=== PATIENT | male | born 1945 | race Caucasian/White ===

== ENCOUNTER → 2016-04-07 | Outpatient (CLI) | payer MEDICARE ==
[2016-04-09 15:10] LABS: Hepatits C Virus RNA, Quant 346 IU/mL (<12); LOG HCV IU/mL 2.54 (<1.08)
== END | disposition home or self-care (01) ==
LOC: LABWHC1 10:06
PROVIDERS: ATTEND Family Medicine
DX: R16.0 Hepatomegaly, not elsewhere classified (principal); R17 Unspecified jaundice; B19.20 Unspecified viral hepatitis C without hepatic coma
CPT/HCPCS: 36415; 87522

== ENCOUNTER → 2016-04-12 | Outpatient (CLI) | payer MEDICARE ==
--- NOTE | 2016-04-12 11:18 | US ---
EXAMINATION TYPE: US abdomen complete DATE OF EXAM: 04/12/2016 11:02 AM COMPARISON: No previous CLINICAL HISTORY: R17 JAUNDICE. EXAM MEASUREMENTS: Liver Length: 15.6 cm Gallbladder Wall: 0.2 cm CBD: 0.5 cm Spleen: 9.5 cm Right Kidney: 10.6 x 4.8 x 4.5 cm Left Kidney: 10.4 x 5.0 x 4.8 cm TECHNOLOGIST IMPRESSION: Pancreas: visualized portions wnl, tail obscured by overlying midline bowel gas Liver: wnl Gallbladder: appears slightly hydropic at 5.0cm in transverse measurement Evidence for sonographic Weldon's sign: no CBD: wnl Spleen: visualized portions wnl, limited by rib shadowing and overlying bowel gas Right Kidney: visualized portions wnl, inferior pole limited by overlying bowel gas Left Kidney: visualized portions wnl, limited by rib shadowing overlying bowel gas Upper IVC: wnl Abd Aorta: wnl Limited views of the pancreas are unremarkable. The liver is normal in size without biliary dilatation. The gallbladder is somewhat hydropic. There is no evidence of cholelithiasis. The gallbladder wall me asures 2 mm. Distal common hepatic duct measures 5 mm. The spleen is normal in size. Both kidneys appear normal. Visualized portions of the aorta and IVC are unremarkable. IMPRESSION: NORMAL ABDOMINAL ULTRASOUND.
== END | disposition home or self-care (01) ==
LOC: RADUSWWP 10:37
PROVIDERS: ATTEND Family Medicine
DX: R17 Unspecified jaundice (principal)
CPT/HCPCS: 76700

== ENCOUNTER → 2016-08-06 | Outpatient (CLI) | payer MEDICARE ==
[2016-08-06 12:30] LABS: Blood Urea Nitrogen 18 mg/dL (9-20); Non-African American GFR(MDRD) >60 (>60 ml/min/1.73 sqM)
--- NOTE | 2016-08-06 13:40 | CT ---
EXAMINATION TYPE: CT chest w con DATE OF EXAM: 08/06/2016 COMPARISON: NONE HISTORY: Abnormal CXR per patient CT DLP: 243.9 mGycm Automated exposure control for dose reduction was used. CONTRAST: CT scan of the chest is performed with IV Contrast, patient injected with 100 mL of Omnipaque 300. FINDINGS: LUNGS: Diffuse emphysematous changes are seen. There is a nodule within the left superior segment low er lobe axial image 26 measuring 1 cm. Is somewhat suspicious margins recommend PET scan. No pleural effusion or pneumothorax. No consolidative pneumonia. MEDIASTINUM: Atherosclerotic change aorta. There is an aneurysm of the ascending aorta measuring appr oximately 4.3 cm and of the aortic root measuring approximately 5.3 cm. Coronary artery calcification seen. The ascending aorta has a normal caliber. OTHER: No additional significant abnormality is seen. IMPRESSION: 1. 1.1 cm nodule left upper lobe. Malignancy is not excluded recommend PET scan for further evaluatio n. 2. Diffuse emphysematous changes 3. 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 A Yellow message has been communicated to Lino Murrieta MD via the [employer] system on 08/06/2016 1:33 PM, Message ID [id number].
== END | disposition home or self-care (01) ==
LOC: RADCTMAIN 11:52
PROVIDERS: ATTEND Internal Medicine Critical Care Medicine
DX: R91.1 Solitary pulmonary nodule (principal); J43.9 Emphysema, unspecified; I71.9 Aortic aneurysm of unspecified site, without rupture
CPT/HCPCS: 82565; 84520; 71260; 36415; Q9967

== ENCOUNTER → 2017-02-26 | Outpatient (CLI) | payer MEDICARE ==
[2017-02-26 11:58] LABS: Blood Urea Nitrogen 20 mg/dL (9-20)
--- NOTE | 2017-02-26 14:17 | CT ---
EXAMINATION TYPE: CT chest w con DATE OF EXAM: 02/26/2017 COMPARISON: 08/06/2016 HISTORY: Solitary pulmonary nodule CT DLP: 229.30 mGycm, Automated exposure control for dose reduction was used. CONTRAST: Performed injected with 100 ml mL of Omnipaque 300. TECHNIQUE: Axial images were obtained at 5 mm thick sections. Reconstructed images are reviewed on [employer] computer in the coronal plane. FINDINGS: Portion of the thyroid visualized is normal. Emphysematous changes are present bilaterally. There is some scarring in the posterior right upper mitzi ng field. This may be increasing from comparison. Some pneumonitis changes in the posterior lateral left mid lung field has a 1.1 cm area of groundglas s opacity. This area appears stable in size from July 2016. No enlarged mediastinal or hilar adenopathy is evident. The ascending aorta diameter at the level o f the main pulmonary artery is 4.3 cm. The main pulmonary artery diameter at the bifurcation is 2.[address] sections are obtained through the upper abdomen. Abdomen is essentially unremarkable. IMPRESSIONS: 1. Stable groundglass opacity posterior left midlung. Continued monitoring with a follow-up exam in 6 months is recommended. 2. Increasing lung markings posterior right upper lung field. 3. COPD
== END ==
LOC: RADCTMAIN 11:17
PROVIDERS: ATTEND Internal Medicine
DX: R91.1 Solitary pulmonary nodule (principal); R94.2 Abnormal results of pulmonary function studies; J44.9 Chronic obstructive pulmonary disease, unspecified
CPT/HCPCS: 82565; 84520; 71260; 36415; Q9967

== ENCOUNTER → 2018-03-03 | Outpatient (CLI) | payer MEDICARE ==
--- NOTE | 2018-03-03 11:23 | CT ---
EXAMINATION TYPE: CT chest w con DATE OF EXAM: 03/03/2018 COMPARISON: 02/26/2017 HISTORY: Pulmonary nodule and thoracic aneurysm CT DLP: 207.8 mGycm Automated exposure control for dose reduction was used. CONTRAST: CT scan of the chest is performed with IV Contrast, patient injected with 100 mL of Isovue 300. FINDINGS: LUNGS: Diffuse emphysematous changes are noted. Subsegmental areas of consolidation compatible scarri ng or atelectasis. No residual nodule within the left upper lobe image 25 is somewhat irregular ravin ns and measures 8 mm additional nodule seen anteriorly within the left upper lobe measuring 5 mm. No pleural effusion. Central and basilar bronchiectasis. Additional scattered densities more prominent a nterior right lower lobe are most likely related to chronic atelectasis or scarring. MEDIASTINUM: There is a 4.5 x 4.4 cm descending thoracic aortic aneurysm. Coronary artery calcificati on noted. Atherosclerotic change aorta is seen. No pathologic adenopathy OTHER: Hypertrophic and degenerative change of the spine. IMPRESSION: 1. There may be minimal increase in size of the left upper lobe which measuring 8 mm which is slightl y irregular margins. Recommend either a 3 month follow-up CT scan or PET/CT for further evaluation. M alignancy not excluded. 2. There is a ascending aortic aneurysm measuring 4.5 x 4.4 cm and previously measuring 4.3 cm. 3. Diffuse emphysematous changes.
== END ==
LOC: RADCTMAIN 10:08
PROVIDERS: ATTEND Internal Medicine Critical Care Medicine
DX: I71.2 Thoracic aortic aneurysm, without rupture (principal)
CPT/HCPCS: 82565; 84520; 71260; 36415; Q9967

== ENCOUNTER 2018-08-17 22:03 | Inpatient (IN) | payer MEDICARE ==
--- NOTE | 2018-08-17 23:20 | ED ---
Chest Pain HPI - General Source: patient, family Mode of arrival: ambulatory Limitations: no limitations <Martha Palacios - Last Filed: 08/17/18 23:16> <Flakita Engel - Last Filed: 08/18/18 04:14> - General Chief Complaint: Chest Pain Stated Complaint: Cardiac Issues Time Seen by Provider: 08/17/18 22:18 - History of Present Illness Initial Comments: 73-year-old male with a history of COPD and thoracic aortic aneurysm presenting with right-sided chest and arm pain that began today and is accompanied by shor tness of breath. His daughter is at bedside he states that he recently has been on steroids and antibiotics to prevent pneumonia because he only has a small percentage of his lungs functioning. They deny any fevers chills, abdominal pain, diaphoresis or other anginal equivalents. Denies any lower extremity swelling, history of DVT/PE, recent surgery, active cancer. Patient's one month prior and his daughter states he's been declining since then. States is a history of tobacco abuse and has been smoking more since her . She states he also takes tramadol multiple times a day and recently ran out, with his last dose being this morning. (Martha Palacios) - Related Data Home Medications Medication Instructions Recorded Confirmed Albuterol Inhaler [Ventolin Hfa 2 puff INHALATION RT-Q6H PRN 08/17/18 08/17/18 Inhaler] Albuterol Nebulized [Ventolin 2.5 mg INHALATION RT-Q6H PRN 08/17/18 08/17/18 Nebulized] Ergocalciferol [Vitamin D2] 50,000 unit PO Q30D 08/17/18 08/17/18 Fexofenadine/Pseudoephedrine 1 tab PO BID PRN 08/17/18 08/17/18 [Elizabeth-D 12 Hour Tablet] Fluticasone/Salmeterol [Advair 1 puff INHALATION RT-BID 08/17/18 08/17/18 500-50 Diskus] Multivitamins, Thera [Multivitamin 1 tab PO DAILY 08/17/18 08/17/18 (formulary)] Mylanta [id number] Chew 1 tab PO PC-TID 08/17/18 08/17/18 Naproxen 500 mg PO DAILY 08/17/18 08/17/18 Olopatadine HCl 1 applic BOTH EYES HS 08/17/18 08/17/18 Simvastatin [Zocor] 20 mg PO DAILY 08/17/18 08/17/18 Tiotropium [place] [Spiriva] 1 cap INHALATION RT-DAILY 08/17/18 08/17/18 traMADol HCL [Ultram] 50 mg PO DAILY PRN 08/17/18 08/17/18 Allergies Allergy/AdvReac Type Severity Reaction Status Date / Time No Known Allergies Allergy Verified 08/17/18 23:01 Review of Systems ROS Other: All systems not noted in ROS Statement are negative. <Martha Palacios - Last Filed: 08/17/18 23:16> ROS Other: All systems not noted in ROS Statement are negative. <Flakita Engel - Last Filed: 08/18/18 04:14> ROS Statement: Those systems with pertinent positive or pertinent negative responses have been documented in the HPI. Review of Systems Constitutional: Denies fever, chills Eyes: Denies change in vision, Denies pain Ears, nose, mouth, throat: Denies headaches, Denies sore throat Cardiovascular: Positive chest pain. Denies palpitations Respiratory: Positive shortness of breath, Denies cough Gastrointestinal: Denies abdominal pain. Denies nausea, vomiting, diarrhea. Genitourinary: Denies hematuria, Denies infections Musculoskeletal: Positive pain, Denies swelling Integumentary: Denies rash Neurological: Denies headache, focal weakness, focal numbness Psychiatric: Denies anxiety, Denies depression Hematologic/Lymphatic: Denies easy bleeding or bruising (Martha Palacios) EKG Findings - EKG Comments: EKG Findings:: EKG shows sinus tachycardia at a rate of [address] segment elevation, depression. No prolonged QT/QTc or VT interval. No dysrythmia noted. <Martha Palacios - Last Filed: 08/17/18 23:16> Past Medical History History of Any Multi-Drug Resistant Organisms: None Reported Additional Past Surgical History / Comment(s): back fusion. hip surgery x 2 Past Psychological History: No Psychological Hx Reported Smoking Status: Light tobacco smoker Past Alcohol Use History: None Reported Past Drug Use History: None Reported <Martha Palacios - Last Filed: 08/17/18 23:16> General Exam Limitations: no limitations <Martha Palacios - Last Filed: 08/17/18 23:16> - General Exam Comments Initial Comments: General: Awake, alert, No acute Distress HENT: Normocephalic. Atraumatic Eyes: PERRL. EOMI. No scleral icterus. No injected conjunctiva Neck: Full ROM Chest/Lungs: Distant lung sounds bilaterally Cardiac: Sinus tachycardia No murmurs or rubs. No edema. 2+ radial pulses bilaterally. No abdominal bruit Abdomen/GI: Soft, nontender, nondistended. No rebound, guarding, or rigidity. 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 ] Respiratory 19 21 Rate Blood Pressure 119/64 O2 Sat by Pulse 91 L 89 L Oximetry 08/17/18 08/17/18 08/17/18 22:50 23:00 23:10 Temperature Pulse Rate 116 H 116 H 120 H Pulse Rate [ Baling Machine Tender ] Respiratory 14 23 20 Rate Blood Pressure 137/71 137/71 128/77 O2 Sat by Pulse 90 L 90 L 88 L Oximetry 08/17/18 08/17/18 08/18/18 23:20 23:30 00:10 Temperature Pulse Rate 115 H 116 H 110 H Pulse Rate [ Baling Machine Tender ] Respiratory 22 15 Rate Blood Pressure 128/77 128/77 O2 Sat by Pulse 87 L 87 L Oximetry 08/18/18 01:25 Temperature 98.9 F Pulse Rate 110 H Pulse Rate [ Baling Machine Tender ] Respiratory 26 H Rate Blood Pressure O2 Sat by Pulse 87 L Oximetry Chest Pain MDM <Martha Palacios - Last Filed: 08/17/18 23:16> <Flakita Engel - Last Filed: 08/18/18 04:14> - MDM 73-year-old male is ending with right-sided pain and reported shortness of breath. This exam the patient is awake, alert, no acute distress. VSS. Patient has history of thoracic aortic aneurysm as daughter is concerned this could be the cause of his symptoms. No rest her distress, and has no conversational dyspnea. The initial respiratory rate of 119 was clearly entered in error. (Martha Palacios) Patient care was signed out to me by Dr. Palacios. Patient presented with right sided chest and flank pain, tachypnea and tachycardia. Workup was initiated. He does have a history of thoracic aneurysm per the patient and his daughter therefore CT was ordered. CT resulted with a right lower lobe pneumonia. No signs of aneurysm. These results were discussed with the patient and daughter. At this time the daughter and patient would feel more comfortable with the patient remaining in the hospital for antibiotics as well as COPD treatment. Patient care was discussed with his primary care physician Dr. Grissom who agrees with this plan. Admission orders were placed. (Flakita Engel) Disposition <Martha Palacios - Last Filed: 08/17/18 23:16> <Flakita Engel - Last Filed: 08/18/18 04:14> Clinical Impression: Pleurisy, Right lower lobe pneumonia, COPD exacerbation Disposition: ADMITTED IP TO THIS HOSP Condition: Stable Referrals: Lino Murrieta MD [STAFF PHYSICIAN] - 1-2 days
[2018-08-17 23:29] LABS: HGB 14.8 gm/dL (13.0-17.5); MCH 29.3 pg (25.0-35.0); MCHC 32.8 g/dL (31.0-37.0); MCV 89.5 fL (80.0-100.0); Mean Platelet Volume 7.8; Platelet Count 167 k/uL (150-450); RBC 5.03 m/uL (4.30-5.90); RDW 15.3 % (11.5-15.5); WBC 18.9 k/uL (3.8-10.6)
[2018-08-17 23:32] LABS: African American GFR (CKD) >90 (>60 ml/min/1.73 sqM); Anion Gap 9 mmol/L; Blood Urea Nitrogen 20 mg/dL (9-20); Calcium 9.1 mg/dL (8.4-10.2); Carbon Dioxide 29 mmol/L (22-30); Chloride 97 mmol/L (98-107); Glucose 108 mg/dL (74-99); Sodium 135 mmol/L (137-145)
[2018-08-18 00:04] LABS: Band Neutrophils % 3 %; Lymphocytes # (M) 1.32 k/uL (1.0-4.8); Monocytes # (M) 0.38 k/uL (0-1.0); Neutrophils % (M) 88 %; Nucleated Red Blood Cells 0 /100 WBC (0-0); Total Cells Counted 100
--- NOTE | 2018-08-18 00:21 | XR ---
EXAMINATION TYPE: XR chest 2V DATE OF EXAM: 08/17/2018 COMPARISON: 09/18/2010 HISTORY: 73-year-old male with pain TECHNIQUE: PA and lateral views FINDINGS: Heart normal size. Atherosclerotic calcifications throughout the aorta. Hyperinflation with mild inte rstitial prominence. Patchy consolidation throughout the right mid and lower lung. No pleural effusio ns. IMPRESSION: COPD with patchy consolidation right mid and lower lung. Correlate for pneumonia. Follow-up after devante atment to ensure clearance.
[2018-08-18] MEDS ORDERED: SODIUM CHLORIDE 0.9% 1,000 ML IV ONE (01:35)
[2018-08-18] MEDS ORDERED: VANCOMYCIN IV PER PHARMACY 1 EACH MISC MISCELLANE PRN (02:23)
--- NOTE | 2018-08-18 02:31 | CT ---
EXAM: CT Angiography Chest With Intravenous Contrast CLINICAL HISTORY: ITS.REASON CT Reason: Pain TECHNIQUE: Axial computed tomographic angiography images of the chest with intravenous contrast using pulmonary embolism protocol. CTDI is 23.2 mGy and DLP is 1038.80 mGy-cm. This CT exam was performed using one or more of the following dose reduction techniques: automated exposure control, adjustment of the mA and/or kV according to patient size, and/or use of iterative reconstruction technique. MIP reconstructed images were created and reviewed. COMPARISON: No relevant prior studies available. FINDINGS: Pulmonary arteries: Unremarkable. No pulmonary embolism. Aorta: No aortic aortic dissection. Aorta measures a maximum dimension of 4.6 cm anterior posterior. Lungs: Heterogeneous airspace disease at the right lower lobe posteriorly is concerning for pneumonia in the right clinical setting. At least moderate centrilobular emphysema with spiculated lesion at the superior segment of the right lower lobe measuring 1 cm. Differential would include focal scarring versus tumor. No mass. Pleural space: Unremarkable. No significant effusion. No pneumothorax. Heart: No pericardial effusion. No cardiomegaly. Multivessel coronary calcifications. No evidence of RV dysfunction. Bones/joints: No acute fracture. No dislocation. Soft tissues: Unremarkable. Lymph nodes: No adenopathy. IMPRESSION: Heterogeneous airspace disease at the right lower lobe posteriorly is concerning for pneumonia in the right clinical setting. No aortic dissection. EXAM: CT Angiography Abdomen and Pelvis With Intravenous Contrast CLINICAL HISTORY: ITS.REASON CT Reason: Pain TECHNIQUE: Axial computed tomographic angiography images of the abdomen and pelvis with intravenous contrast. CTDI is 23.2 mGy and DLP is 1038.80 mGy-cm. This CT exam was performed using one or more of the following dose reduction techniques: automated exposure control, adjustment of the mA and/or kV according to patient size, and/or use of iterative reconstruction technique. MIP reconstructed images were created and reviewed. COMPARISON: No relevant prior studies available. FINDINGS: VASCULATURE: Aorta: No aortic aneurysm or dissection. Celiac trunk and mesenteric arteries: No acute findings. No occlusion or significant stenosis. Renal arteries: No acute findings. No occlusion or significant stenosis. Iliac arteries: No acute findings. No occlusion or significant stenosis. Lung bases: Unremarkable. No mass. No consolidation. ABDOMEN: Liver: Unremarkable. No mass. Gallbladder and bile ducts: Pancreas is unremarkable. Gallbladder is without wall thickening or surrounding fluid or inflammation. Gallstones are not seen. No obstructive uropathy. No ductal dilation. Pancreas: Unremarkable. No ductal dilation. No mass. Spleen: Unremarkable. No splenomegaly. Adrenals: Unremarkable. No mass. Kidneys and ureters: See above. Stomach and bowel: Stool throughout the colon but no colitis, diverticulitis, appendicitis or bowel obstruction. PELVIS: Appendix: See above. Bladder: Unremarkable. No mass. Reproductive: Unremarkable as visualized. ABDOMEN and PELVIS: Intraperitoneal space: No free air or free fluid. Bones/joints: Bilateral total hip arthroplasties are identified. Posterior osteometallic fusion at the lower lumbar spine. No acute fracture. No dislocation. Soft tissues: Fat-containing umbilical hernia. Lymph nodes: Unremarkable. No enlarged lymph nodes. IMPRESSION: No aortic aneurysm or dissection. No other acute or inflammatory disease or bowel obstruction.
[2018-08-18] MEDS: PIPERACILLIN-TAZOBACTAM 3.375 GM in SODIUM CHLORIDE 0.9% 100 ML IVPB SCH ×4 (02:59→21:34)
[2018-08-18] MEDS ORDERED: VANCOMYCIN 1,250 MG in SODIUM CHLORIDE 0.9% 250 ML IVPB ONE (03:00)
[2018-08-18 03:18] LABS: Albumin 3.9 g/dL (3.5-5.0); Bilirubin, Delta 0.1 mg/dL (0.0-0.2); Bilirubin,Unconjugated 1.1 mg/dL (0.0-1.1); Total Bilirubin 1.2 mg/dL (0.2-1.3); Total Protein 6.3 g/dL (6.3-8.2)
[2018-08-18] MEDS ORDERED: IPRATROPIUM-ALBUTEROL 3 ML NEB INHALATION PRN (04:10)
[2018-08-18] MEDS ORDERED: traMADol 50 MG TAB PO PRN (04:11)
[2018-08-18 05:23] VITALS: BMI 21.9
[2018-08-18] MEDS: ATORVASTATIN 10 MG TAB PO SCH (07:39)
[2018-08-18] MEDS: MULTIVITAMINS, THERA 1 EACH TAB PO SCH (07:39)
[2018-08-18] MEDS: NICOTINE 14MG/24HR PATCH TRANSDERM SCH (07:39)
[2018-08-18] MEDS: predniSONE 20 MG TAB PO SCH (07:39)
[2018-08-18] MEDS: NAPROXEN 250 MG TAB PO SCH (07:43)
[2018-08-18] MEDS ORDERED: NICOTINE POLACRILEX 2 MG GUM BUCCAL PRN (08:00)
[2018-08-18] MEDS: IPRATROPIUM 0.5 MG/2.5 ML NEBU INHALATION SCH ×2 (08:43→11:25)
--- NOTE | 2018-08-18 13:29 | HP ---
HISTORY AND PHYSICAL CHIEF COMPLAINT: Shortness of breath. HISTORY OF PRESENT ILLNESS: This is another admission for this 73-year-old white male who has COPD. He started to have shortness of breath, cough, and low-grade fever. He came to the emergency room and was found to have right middle lobe pneumonitis. REVIEW OF SYSTEMS: He has had no headaches, neurologic problems, change in vision or the hearing, cough, hemoptysis, abdominal pain, nausea, vomiting, diarrhea, melena, renal failure, dysuria, etc. He is not diabetic. Past medical history, family history and personal and social histories are all otherwise unremarkable. He is not allergic to any medication. He uses Ventolin HFA, simvastatin 20 at bedtime, vitamin D 50,000 units a month, Advair Diskus 500/50 two puffs twice a day, updrafts with albuterol, trazodone for sleep, tramadol for pain, Spiriva once a day and Naprosyn b.i.d. at night. Past medical history, family, personal and social histories are otherwise unremarkable except that he does continue to smoke. His recently unexpectedly. He is being treated in [place] for amyloidosis as well. PHYSICAL EXAM: Blood pressure is 130/80 with a pulse of 96, respirations 36 and temperature of 100. In general, he appeared to be acutely ill. Skin was somewhat clammy and hot. Head, ears, eyes, nose, mouth, and throat were normal. Neck veins were not distended. Chest demonstrated a slightly increased AP diameter with poor breath sounds. There is scattered rales and rhonchi throughout. Cardiac exam demonstrates sinus tachycardia. Abdomen is flat, soft and nontender. Extremities are normal. Neurologically, he is intact. He is admitted to the hospital diagnoses. 1. Right middle lobe pneumonia. 2. Chronic obstructive pulmonary disease. 3. Hyperlipidemia. 4. Amyloidosis. PLAN: 1. Bed rest. 2. IV fluids. 3. Nasal oxygen. 4. Updrafts. 5. IV antibiotics. MMODL / IJN: [id number] /
[2018-08-18] MEDS: SYMBICORT 160-4.5 MCG INHALER INHALATION SCH (14:54)
[2018-08-18] MEDS ORDERED: LORATADINE-PSEUDOEPH 5-120 MG 1 EACH TAB.ER.12H PO PRN (14:57)
[2018-08-18] MEDS: LEVOFLOXACIN 750MG-D5W PMX 750 MG in DEXTROSE/WATER 1 150ML.BAG IVPB SCH (15:17)
[2018-08-18] MEDS: IPRATROPIUM-ALBUTEROL 3 ML NEB INHALATION SCH ×2 (16:12→19:50)
[2018-08-18] MEDS: MAG HYDROX/AL HYDROX/SIMETH 30 ML CUP PO SCH (16:50)
--- NOTE | 2018-08-18 17:22 | P.CNPUL ---
History of Present Illness Consult date: 08/18/18 Reason for consult: dyspnea, cough, chest pain, COPD Chief complaint: Cough, Congestion, right mid and right lower lung pneumonia History of present illness: This is a 73-year-old white male patient with history of advanced COPD, with baseline FEV1 of 31% of predicted, a chronic history of smoking, history of multiple comorbidities including chronic hepatitis C, essential hypertension, history of solitary lung nodule, and thoracic aortic aneurysm. Patient carries [id number] smoking history, was down to half a pack a day. On a combination of Advair and Spiriva and nebulized bronchodilators on as-needed basis, not on any home oxygen. Patient follows with Dr. Anderson in the pulmonary clinic, recently lost his , and has been smoking a bit more since then. On 08/17/2018 patient presented to the emergency department for evaluation of right-sided chest pain, and right arm pain with onset of symptoms on Saturday, accompanied by shortness of breath. He is also complaining of cough and increased chest congestion. Denied any history of fevers or chills, denied any diaphoresis, abdominal pain, nausea or vomiting. No lower extremity swelling. Chest x-ray was completed showing COPD with patchy consolidation in the right mid and lower lung. CT angiography of the chest with intravenous contrast showed no evidence of aortic aneurysm or dissection, no pulmonary embolism, heterogeneous airspace disease at the right lower lobe posteriorly concerning for pneumonia, and moderate centrilobular emphysema with spiculated lesion at the superior segment of the right lower lobe measuring 1 cm. Patient has a left lower lobe nodule/spiculated density that is being followed by Dr. Anderson in outpatient basis. Patient has a descending aortic aneurysm measuring 4.5 x 4.4 cm previously measuring 4.[address] thoracic aorta from 08/17/2018, aorta measures a maximum dimension of 4.6 cm anterior-posterior. No evidence of aortic dissection. Labs were positive for evidence of leukocytosis, white blood cell count was 18.9, hemoglobin of 14.8, serum sodium was 135, potassium 4.0, chloride was 97, normal renal profile with a BUN of 20 creatinine 0.95. Troponin was negative 1, proBNP was 85. Patient was placed on antibiotic coverage with Zosyn and vancomycin, oral prednisone, he was given a liter bolus of fluid in the emergency department. Lactic acid was within normal limits at 1.2. We're consulted for right middle and lower lobe pneumonia. Review of Systems All systems: negative Constitutional: Denies chills, Denies fever Eyes: denies blurred vision, denies pain Ears, nose, mouth and throat: Denies headache, Denies sore throat Cardiovascular: Denies chest pain, Denies shortness of breath Respiratory: Reports cough with sputum, Reports dyspnea, Reports respiratory infections, Denies cough Gastrointestinal: Denies abdominal pain, Denies diarrhea, Denies nausea, Denies vomiting Musculoskeletal: Denies myalgias Integumentary: Denies pruritus, Denies rash Neurological: Denies numbness, Denies weakness Psychiatric: Denies anxiety, Denies depression Endocrine: Denies fatigue, Denies weight change Past Medical History Past Medical History: Hyperlipidemia History of Any Multi-Drug Resistant Organisms: None Reported Additional Past Surgical History / Comment(s): back fusion. hip surgery x 2 Past Psychological History: No Psychological Hx Reported Smoking Status: Current every day smoker Past Alcohol Use History: None Reported Past Drug Use History: None Reported Medications and Allergies Home Medications Medication Instructions Recorded Confirmed Type Albuterol Inhaler [Ventolin Hfa 2 puff INHALATION RT-Q6H PRN 08/17/18 08/17/18 History Inhaler] Albuterol Nebulized [Ventolin 2.5 mg INHALATION RT-Q6H PRN 08/17/18 08/17/18 History Nebulized] Ergocalciferol [Vitamin D2] 50,000 unit PO Q30D 08/17/18 08/17/18 History Fexofenadine/Pseudoephedrine 1 tab PO BID PRN 08/17/18 08/17/18 History [Elizabeth-D 12 Hour Tablet] Fluticasone/Salmeterol [Advair 1 puff INHALATION RT-BID 08/17/18 08/17/18 History 500-50 Diskus] Multivitamins, Thera [Multivitamin 1 tab PO DAILY 08/17/18 08/17/18 History (formulary)] Mylanta [id number] Chew 1 tab PO PC-TID 08/17/18 08/17/18 History Naproxen 500 mg PO DAILY 08/17/18 08/17/18 History Olopatadine HCl 1 applic BOTH EYES HS 08/17/18 08/17/18 History Simvastatin [Zocor] 20 mg PO DAILY 08/17/18 08/17/18 History Tiotropium [place] [Spiriva] 1 cap INHALATION RT-DAILY 08/17/18 08/17/18 History traMADol HCL [Ultram] 50 mg PO DAILY PRN 08/17/18 08/17/18 History Allergies Allergy/AdvReac Type Severity Reaction Status Date / Time No Known Allergies Allergy Verified 08/17/18 23:01 Physical Exam Vitals: Vital Signs Temp Pulse Pulse Resp BP BP Pulse Ox 08/18/18 16:25 73 16 08/18/18 16:12 70 16 95 08/18/18 15:19 18 08/18/18 15:00 98.0 F 110 H 16 104/67 93 L 08/18/18 14:31 74 08/18/18 14:18 72 08/18/18 08:44 104 H 08/18/18 07:45 118 H 18 08/18/18 07:00 98.1 F 118 H 18 115/74 92 L 08/18/18 06:00 98.6 F 111 H 20 137/65 95 08/18/18 05:54 111 H 20 08/18/18 04:40 113 H 21 139/76 94 L 08/18/18 04:30 114 H 24 139/76 96 08/18/18 04:20 112 H 21 139/76 96 08/18/18 04:10 113 H 21 139/76 96 08/18/18 04:00 112 H 21 136/77 97 08/18/18 03:50 112 H 26 H 136/77 97 08/18/18 03:40 112 H 22 136/77 98 08/18/18 03:30 112 H 26 H 136/77 97 08/18/18 03:20 112 H 17 136/77 96 08/18/18 03:10 112 H 23 136/77 98 08/18/18 03:00 115 H 24 125/79 96 08/18/18 02:50 115 H 26 H 125/79 96 08/18/18 02:40 113 H 23 125/79 96 08/18/18 02:30 112 H 24 125/79 97 08/18/18 02:20 109 H 21 125/79 96 08/18/18 02:10 114 H 23 125/79 94 L 08/18/18 02:00 113 H 22 118/75 94 L 08/18/18 01:50 117 H 22 118/75 94 L 08/18/18 01:40 111 H 23 118/75 94 L 08/18/18 01:30 112 H 21 118/75 94 L 08/18/18 01:25 98.9 F 110 H 26 H 87 L 08/18/18 01:20 113 H 23 118/75 87 L 08/18/18 01:10 110 H 19 118/75 86 L 08/18/18 01:00 112 H 18 121/72 08/18/18 00:50 112 H 18 87 L 08/18/18 00:40 112 H 20 87 L 08/18/18 00:30 112 H 19 86 L 08/18/18 00:20 111 H 21 87 L 08/18/18 00:10 111 H 19 86 L 08/18/18 00:00 128/77 08/17/18 23:50 116 H 20 128/77 88 L 08/17/18 23:40 116 H 22 128/77 87 L 08/17/18 23:30 116 H 15 128/77 87 L 08/17/18 23:20 115 H 22 128/77 87 L 08/17/18 23:10 120 H 20 128/77 88 L 08/17/18 23:00 116 H 23 137/71 90 L 08/17/18 22:50 116 H 14 137/71 90 L 08/17/18 22:43 115 H 21 89 L 08/17/18 22:39 115 H 08/17/18 22:07 100.1 F H 125 H 19 119/64 91 L Intake and Output 08/18/18 08/18/18 08/18/18 06:59 14:59 22:59 Intake Total 350 Balance 350 Intake: Intake, IV Titration 350 Amount Piperacillin-Tazobactam 3 100 .375 gm In Sodium Chloride 0.9% 100 ml @ 25 mls/hr IVPB Q6H [facility] Rx#: [id number] Vancomycin 1,250 mg In 250 Sodium Chloride 0.9% 250 ml @ 125 mls/hr IVPB ONCE ONE Rx#:[id number] Other: # Voids 2 Weight 63.503 kg GENERAL EXAM: Alert, pleasant, 73-year-old white male, currently on 3 L of oxygen with a pulse ox of 95% comfortable in no apparent distress. HEAD: Normocephalic/atraumatic. EYES: Normal reaction of pupils, equal size. Conjunctiva pink, sclera white. NOSE: Clear with pink turbinates. THROAT: No erythema or exudates. NECK: No masses, no JVD, no thyroid enlargement, no adenopathy. CHEST: No chest wall deformity. Symmetrical expansion. LUNGS: Equal air entry with inspiratory crackles over right mid and lower lobe posteriorly CVS: Regular rate and rhythm, normal S1 and S2, no gallops, no murmurs, no rubs ABDOMEN: Soft, nontender. No hepatosplenomegaly, normal bowel sounds, no guarding or rigidity. EXTREMITIES: No clubbing, no edema, no cyanosis, 2+ pulses and upper and lower extremities. MUSCULOSKELETAL: Muscle strength and tone normal. SPINE: No scoliosis or deformity SKIN: No rashes CENTRAL NERVOUS SYSTEM: Alert and oriented -3. No focal deficits, tone is normal in all 4 extremities. PSYCHIATRIC: Alert and oriented -3. Appropriate affect. Intact judgment and insight. Results - Laboratory Findings CBC and BMP: 08/17/18 22:53 08/17/18 22:53 Abnormal lab findings: Abnormal Labs 08/17/18 08/17/18 08/18/18 22:53 22:53 02:15 WBC 18.9 H Neutrophils # (Manual) 17.10 H Sodium 135 L Chloride 97 L Glucose 108 H Lipase 12 L - Diagnostic Findings Chest x-ray: report reviewed, image reviewed CT scan - chest: report reviewed, image reviewed Assessment and Plan Plan: Assessment: #1. Acute hypoxemic respiratory failure related to acute right middle and right lower lobe pneumonia #2. History of advanced COPD, stage III, with baseline FEV1 of 31% of pr edicted, not on home oxygen #3. Chronic and ongoing nicotine dependence, patient carries [id number] smoking history #4. Hyperlipidemia #5. Chronic hepatitis C #6. Hypertension #7. Ascending thoracic aortic aneurysm, being followed in the outpatient basis, there was previously measuring 4.5 x 4.4 cm, thoracic CTA was completed showing dimension of 4.6 cm anterior-posterior at a maximum, with no evidence of aortic dissection #8. Chronic back pain #9. Solitary lung nodule in the left upper lobe previously measuring 8 mm in size, being followed in the outpatient basis by Dr. Anderson. Thoracic CTA chest also revealed a spiculated lesion at the superior segment of the right lower lo be measuring 1 cm #10. Psoriasis Plan: Continue Zosyn, we will add Levaquin, will discontinue vancomycin, continue nebulized bronchodilators, oral prednisone. Sputum for culture. Chest X-ray and thoracic aorta CT reviewed. Obtain follow-up labs tomorrow. Vital signs are stable, patient has right mid and right lower lobe pneumonia, and a new spiculated lesion superior segment of the right lower lobe measuring 1 cm, will be followed in the outpatient basis. continue is Symbicort, duoneb. Continue to follow I performed a history & physical examination of the patient and discussed their management with my nurse practitioner, Ashtyn Grigsby. I reviewed the nurse practitioner's note and agree with the documented findings and plan of care. Lung sounds are positive for coarse inspiratory crackles right mid and lower lobes. The findings and the impression was discussed with the patient. I attest to the documentation by the nurse practitioner. Time with Patient: Greater than 30
[2018-08-18] MEDS ORDERED: VANCOMYCIN 1,250 MG in SODIUM CHLORIDE 0.9% 250 ML IVPB SCH (18:00)
[2018-08-18] MEDS: KETOTIFEN 0.025% OPHTH DROPS 5 ML BTL BOTH EYES SCH (21:33)
[2018-08-19] MEDS: PIPERACILLIN-TAZOBACTAM 3.375 GM in SODIUM CHLORIDE 0.9% 100 ML IVPB SCH ×5 (03:15→23:15)
[2018-08-19] MEDS: SYMBICORT 160-4.5 MCG INHALER INHALATION SCH (04:40)
[2018-08-19] MEDS: traMADol 50 MG TAB PO PRN (07:32)
[2018-08-19] MEDS: MULTIVITAMINS, THERA 1 EACH TAB PO SCH (07:32)
[2018-08-19] MEDS: ATORVASTATIN 10 MG TAB PO SCH (07:32)
[2018-08-19] MEDS: NAPROXEN 250 MG TAB PO SCH (07:33)
[2018-08-19] MEDS: predniSONE 20 MG TAB PO SCH (07:33)
[2018-08-19] MEDS: NICOTINE 14MG/24HR PATCH TRANSDERM SCH (07:33)
[2018-08-19] MEDS: MAG HYDROX/AL HYDROX/SIMETH 30 ML CUP PO SCH ×3 (07:35→16:50)
[2018-08-19] MEDS: IPRATROPIUM-ALBUTEROL 3 ML NEB INHALATION SCH ×4 (08:14→20:37)
[2018-08-19 10:04] LABS: African American GFR (CKD) >90 (>60 ml/min/1.73 sqM)
--- NOTE | 2018-08-19 12:09 | PN ---
PROGRESS NOTE CHIEF COMPLAINT: Pneumonitis and exacerbation of COPD. HISTORY OF PRESENT ILLNESS: This gentleman is doing a little bit better and feels like he is breathing a bit more easily. He has coughed up some phlegm and shortness of breath has improved. He has had no chills. REVIEW OF SYSTEMS: Otherwise unremarkable. He has had no diarrhea, nausea, vomiting, dysuria, etc. PHYSICAL EXAM: Vital signs are normal. Head, ears, eyes, nose, mouth, and throat are normal. Neck veins are not distended. Chest demonstrates poor breath sounds throughout with scattered rales and rhonchi. Cardiac exam is normal and the abdomen is flat and soft and extremities normal. IMPRESSION: 1. Right middle lobe pneumonitis. 2. Exacerbation of chronic obstructive pulmonary disease. 3. Amyloidosis. PLAN: Continue with updrafts, IV fluids and antibiotics and increase activity and he can probably go home in the next day or two. MMODL / IJN: [id number] /
[2018-08-19 12:40] LABS: Basophils % (A) 0 %; Eosinophils # (A) 0.1 k/uL (0-0.7); Eosinophils % (A) 1 %; HGB 13.1 gm/dL (13.0-17.5); Lymphocytes # (A) 0.7 k/uL (1.0-4.8); Lymphocytes % (A) 4 %; MCH 29.6 pg (25.0-35.0); MCHC 32.7 g/dL (31.0-37.0); MCV 90.5 fL (80.0-100.0); Mean Platelet Volume 7.8; Monocytes # (A) 0.6 k/uL (0-1.0); Monocytes % (A) 3 %; Neutrophils # (A) 16.6 k/uL (1.3-7.7); Neutrophils % (A) 92 %; Platelet Count 136 k/uL (150-450); RBC 4.43 m/uL (4.30-5.90); RDW 14.1 % (11.5-15.5); WBC 18.2 k/uL (3.8-10.6)
[2018-08-19 12:57] LABS: ALT 32 U/L (21-72); AST 21 U/L (17-59); Alkaline Phosphatase 49 U/L (38-126); Anion Gap 8 mmol/L; Blood Urea Nitrogen 22 mg/dL (9-20); Carbon Dioxide 28 mmol/L (22-30); Chloride 99 mmol/L (98-107); Glucose 138 mg/dL (74-99); Sodium 135 mmol/L (137-145); Total Protein 5.4 g/dL (6.3-8.2)
--- NOTE | 2018-08-19 13:49 | P.PN ---
Subjective Progress Note Date: 08/19/18 Principal diagnosis: Shortness of breath, cough congestion mid right and lower lobe pneumonia. This is a 73-year-old white male patient with history of advanced COPD, with baseline FEV1 of 31% of predicted, a chronic history of smoking, history of multiple comorbidities including chronic hepatitis C, essential hypertension, history of solitary lung nodule, and thoracic aortic aneurysm. Patient carries [id number] smoking history, was down to half a pack a day. On a combination of Advair and Spiriva and nebulized bronchodilators on as-needed basis, not on any home oxygen. Patient follows with Dr. Anderson in the pulmonary clinic, recently lost his , and has been smoking a bit more since then. On 08/17/2018 patient presented to the emergency department for evaluation of right-sided chest pain, and right arm pain with onset of symptoms on Saturday, accompanied by shortness of breath. He is also complaining of cough and increased chest congestion. Denied any history of fevers or chills, denied any diaphoresis, abdominal pain, nausea or vomiting. No lower extremity swelling. Chest x-ray was completed showing COPD with patchy consolidation in the right mid and lower lung. CT angiography of the chest with intravenous contrast showed no evidence of aortic aneurysm or dissection, no pulmonary embolism, heterogeneous airspace disease at the right lower lobe posteriorly concerning for pneumonia, and moderate centrilobular emphysema with spiculated lesion at the superior segment of the right lower lobe measuring 1 cm. Patient has a left lower lobe nodule/spiculated density that is being followed by Dr. Anderson in outpatient basis. Patient has a descending aortic aneurysm measuring 4.5 x 4.4 cm previously measuring 4.[address] thoracic aorta from 08/17/2018, aorta measures a maximum dimension of 4.6 cm anterior-posterior. No evidence of aor tic dissection. Labs were positive for evidence of leukocytosis, white blood cell count was 18.9, hemoglobin of 14.8, serum sodium was 135, potassium 4.0, chloride was 97, normal renal profile with a BUN of 20 creatinine 0.95. Troponin was negative 1, proBNP was 85. Patient was placed on antibiotic coverage with Zosyn and vancomycin, oral prednisone, he was given a liter bolus of fluid in the emergency department. Lactic acid was within normal limits at 1.2. We're consulted for right middle and lower lobe pneumonia. The patient is seen today 08/19/2018 in follow-up on the regular medical floor. He is currently sitting up at the bedside. Awake and alert in no acute distress. The right-sided chest discomfort and wheezing. He continues with a productive cough. Sputum cultures pending. He is maintaining good O2 saturations in the 90s on 3 L/m per nasal cannula. He's been afebrile. Blood cultures reveal no growth thus far. White count 18.2. Hemoglobin 13.1. Creatinine 0.92. He remains on DuoNeb inhalations, Symbicort, Zosyn and Levaquin, Habitrol. Objective - Vital Signs Vital signs: Vital Signs Temp 97.7 F 08/19/18 07:00 Pulse 84 08/19/18 12:04 Resp 15 08/19/18 07:15 BP 132/77 08/19/18 07:00 Pulse Ox 96 08/19/18 07:00 Intake & Output 08/18/18 08/19/18 08/19/18 18:59 06:59 18:59 Intake Total 350 220 480 Output Total 1200 Balance 350 -980 480 Weight 63.503 kg Intake: Intake, IV Titration 350 100 Amount Piperacillin-Tazobactam 3 100 100 .375 gm In Sodium Chloride 0.9% 100 ml @ 25 mls/hr IVPB Q6H [facility] Rx#: [id number] Vancomycin 1,250 mg In 250 Sodium Chloride 0.9% 250 ml @ 125 mls/hr IVPB ONCE ONE Rx#:[id number] Oral 120 480 Output: Urine 1200 Other: # Voids 2 - Exam GENERAL EXAM: Alert, active, comfortable in no apparent distress. On 3 L nasal cannula. HEAD: Normocephalic. EYES: Normal reaction of pupils, equal size. NOSE: Clear with pink turbinates. THROAT: No erythema or exudates. NECK: No masses, no JVD. CHEST: No chest wall deformity. LUNGS: Equal air entry with crackles in the right lung base. CVS: S1 and S2 normal with no audible murmur, regular rhythm. ABDOMEN: No hepatosplenomegaly, normal bowel sounds, no guarding or rigidity. SPINE: No scoliosis or deformity SKIN: No rashes CENTRAL NERVOUS SYSTEM: No focal deficits, tone is normal in all 4 extremities. EXTREMITIES: There is no peripheral edema. No clubbing, no cyanosis. Peripheral pulses are intact. - Labs CBC & Chem 7: 08/19/18 08:54 08/19/18 08:54 Labs: Abnormal Lab Results - Last 24 Hours (Table) 08/19/18 08/19/18 Range/Units 08:54 08:54 WBC 18.2 H (3.8-10.6) k/uL Plt Count 136 L (150-450) k/uL Neutrophils # 16.6 H (1.3-7.7) k/uL Lymphocytes # 0.7 L (1.0-4.8) k/uL Sodium 135 L (137-145) mmol/L BUN 22 H (9-20) mg/dL Glucose 138 H (74-99) mg/dL Total Protein 5.4 L (6.3-8.2) g/dL Albumin 3.0 L (3.5-5.0) g/dL Microbiology - Last 24 Hours (Table) 08/18/18 02:15 Blood Culture - Preliminary Blood No Growth after 24 hours Assessment and Plan Assessment: Assessment: #1. Acute hypoxemic respiratory failure related to acute right middle and right lower lobe pneumonia #2. History of advanced COPD, stage III, with baseline FEV1 of 31% of predicted, not on home oxygen #3. Chronic and ongoing nicotine dependence, patient carries [id number] smoking history #4. Hyperlipidemia #5. Chronic hepatitis C #6. Hypertension #7. Ascending thoracic aortic aneurysm, being followed in the outpatient basis, there was previously measuring 4.5 x 4.4 cm, thoracic CTA was completed showing dimension of 4.6 cm anterior-posterior at a maximum, with no evidence of aortic dissection #8. Chronic back pain #9. Solitary lung nodule in the left upper lobe previously measuring 8 mm in size, being followed in the outpatient basis by Dr. Anderson. Thoracic CTA chest also revealed a spiculated lesion at the superior segment of the right lower lobe measuring 1 cm #10. Psoriasis Plan: The patient was seen and evaluated by Dr. Murrieta. Chest x-ray and labs reviewed. We'll continue with the current treatment plan for now. Increase his activity as tolerated. We'll continue to follow. He is again educated regarding the importance of complete smoking cessation. NicoDerm patches in place. I, the cosigning physician, performed a history & physical examination of the patient. Lungs sounds with scattered rhonchi more so on the right lung crackles in the right base. Maintaining good O2 saturations in the 90s on 3 L/m per nasal cannula. I discussed the assessment and plan of care with my nurse practitioner, Joi Bustamante. I attest to the above note as dictated by her.
[2018-08-19] MEDS: LEVOFLOXACIN 750MG-D5W PMX 750 MG in DEXTROSE/WATER 1 150ML.BAG IVPB SCH (14:42)
--- NOTE | 2018-08-19 15:25 | XR ---
EXAMINATION TYPE: XR chest 2V DATE OF EXAM: 08/19/2018 COMPARISON: 08/17/2018 HISTORY: 73-year-old male follow-up shortness of breath and pneumonia TECHNIQUE: AP and lateral views FINDINGS: Heart normal size. Mild elongation thoracic aorta. Redemonstrated patchy consolidation throughout the right mid and lower lung. Slightly less confluent at the midlung level and slightly increased at the lower lung level. Hyperinflation with trace effusions. IMPRESSION: Continued infiltrate in the right mid and lower lung. Slightly less confluent at the mid lung level a nd slightly increased at the lower lung level. Trace effusions. Background of COPD.
[2018-08-19] MEDS: KETOTIFEN 0.025% OPHTH DROPS 5 ML BTL BOTH EYES SCH (21:37)
[2018-08-20] MEDS: predniSONE 20 MG TAB PO SCH (07:22)
[2018-08-20] MEDS: MULTIVITAMINS, THERA 1 EACH TAB PO SCH (07:22)
[2018-08-20] MEDS: traMADol 50 MG TAB PO PRN (07:22)
[2018-08-20] MEDS: ATORVASTATIN 10 MG TAB PO SCH (07:22)
[2018-08-20] MEDS: NICOTINE 14MG/24HR PATCH TRANSDERM SCH (07:23)
[2018-08-20] MEDS: MAG HYDROX/AL HYDROX/SIMETH 30 ML CUP PO SCH ×3 (07:23→17:06)
[2018-08-20] MEDS: NAPROXEN 250 MG TAB PO SCH (07:24)
[2018-08-20] MEDS: PIPERACILLIN-TAZOBACTAM 3.375 GM in SODIUM CHLORIDE 0.9% 100 ML IVPB SCH ×3 (07:25→23:13)
[2018-08-20] MEDS: IPRATROPIUM-ALBUTEROL 3 ML NEB INHALATION SCH ×4 (07:52→19:45)
[2018-08-20] MEDS: SYMBICORT 160-4.5 MCG INHALER INHALATION SCH ×3 (07:56→19:45)
[2018-08-20 08:02] LABS: African American GFR (CKD) >90 (>60 ml/min/1.73 sqM)
--- NOTE | 2018-08-20 08:18 | XR ---
EXAMINATION TYPE: XR chest 2V DATE OF EXAM: 08/20/2018 COMPARISON: August 19, 2018 HISTORY: Shortness of breath TECHNIQUE: Frontal and lateral views of the chest are obtained. FINDINGS: Scattered senescent parenchymal changes noted. Hyperinflation compatible with COPD. Right perihilar and right lower lobe infiltrate persists. Correlate for pneumonia. The study is advis ed. Heart size is stable. Mediastinal structures are stable and grossly unremarkable. No evidence for hilar prominence. Degenerative changes dorsal spine. IMPRESSION: 1. Right perihilar and right lower lobe infiltrate persists. Correlate for pneumonia. The study is ad vised.
--- NOTE | 2018-08-20 14:36 | P.PN ---
Subjective Progress Note Date: 08/20/18 Principal diagnosis: Shortness of breath, cough congestion, mid right and lower lobe pneumonia This is a 73-year-old white male patient with history of advanced COPD, with baseline FEV1 of 31% of predicted, a chronic history of smoking, history of multiple comorbidities including chronic hepatitis C, essential hypertension, history of solitary lung nodule, and thoracic aortic aneurysm. Patient carries [id number] smoking history, was down to half a pack a day. On a combination of Advair and Spiriva and nebulized bronchodilators on as-needed basis, not on any home oxygen. Patient follows with Dr. Anderson in the pulmonary clinic, recently lost his , and has been smoking a bit more since then. On 08/17/2018 patient presented to the emergency department for evaluation of right-sided chest pain, and right arm pain with onset of symptoms on Saturday, accompanied by shortness of breath. He is also complaining of cough and increased chest congestion. Denied any history of fevers or chills, denied any diaphoresis, abdominal pain, nausea or vomiting. No lower extremity swelling. Chest x-ray was completed showing COPD with patchy consolidation in the right mid and lower lung. CT angiography of the chest with intravenous contrast showed no evidence of aortic aneurysm or dissection, no pulmonary embolism, heterogeneous airspace disease at the right lower lobe posteriorly concerning for pneumonia, and moderate centrilobular emphysema with spiculated lesion at the superior segment of the right lower lobe measuring 1 cm. Patient has a left lower lobe nodule/spiculated density that is being followed by Dr. Anderson in outpatient basis. Patient has a descending aortic aneurysm measuring 4.5 x 4.4 cm previously measuring 4.[address] thoracic aorta from 08/17/2018, aorta measures a maximum dimension of 4.6 cm anterior-posterior. No evidence of ao rtic dissection. Labs were positive for evidence of leukocytosis, white blood cell count was 18.9, hemoglobin of 14.8, serum sodium was 135, potassium 4.0, chloride was 97, normal renal profile with a BUN of 20 creatinine 0.95. Troponin was negative 1, proBNP was 85. Patient was placed on antibiotic coverage with Zosyn and vancomycin, oral prednisone, he was given a liter bolus of fluid in the emergency department. Lactic acid was within normal limits at 1.2. We're consulted for right middle and lower lobe pneumonia. The patient is seen today 08/19/2018 in follow-up on the regular medical floor. He is currently sitting up at the bedside. Awake and alert in no acute distress. The right-sided chest discomfort and wheezing. He continues with a productive cough. Sputum cultures pending. He is maintaining good O2 saturations in the 90s on 3 L/m per nasal cannula. He's been afebrile. Blood cultures reveal no growth thus far. White count 18.2. Hemoglobin 13.1. Creatinine 0.92. He remains on DuoNeb inhalations, Symbicort, Zosyn and Levaquin, Habitrol. On 08/20/2016 patient seen in follow-up on medical surgical floor. Is awake and alert, calm and comfortable, pulse ox is 96% on 3 L, no fever or chills, lung sounds revealed coarse breath sounds and some crackles at bilateral bases, chest x-ray revealed right perihilar and right lower lobe infiltrate persistence. We' ll continue current medical treatment, urine culture revealed Santa albicans only so far. Blood cultures was negative. Cotninue with the current antibiotic coverage in the form of Zosyn and Levaquin, occasional cough with production of sputum, no hemoptysis. No chest pain. Objective - Vital Signs Vital signs: Vital Signs Temp 97.6 F 08/20/18 07:30 Pulse 92 08/20/18 11:34 Resp 15 08/20/18 08:00 BP 149/77 08/20/18 07:30 Pulse Ox 96 08/20/18 07:56 Intake & Output 08/19/18 08/20/18 08/20/18 18:59 06:59 18:59 Intake Total 480 300 380 Output Total 400 Balance 80 300 380 Intake: Oral 480 300 380 Output: Urine 400 Other: Voiding Method Toilet Toilet Bedside Commode Bedside Commode # Voids 2 1 - Exam GENERAL EXAM: Alert, pleasant, 73-year-old white male, currently on 3 L of oxygen with a pulse ox of 95% comfortable in no apparent distress. HEAD: Normocephalic/atraumatic. EYES: Normal reaction of pupils, equal size. Conjunctiva pink, sclera white. NOSE: Clear with pink turbinates. THROAT: No erythema or exudates. NECK: No masses, no JVD, no thyroid enlargement, no adenopathy. CHEST: No chest wall deformity. Symmetrical expansion. LUNGS: Equal air entry with inspiratory crackles over right mid and lower lobe posteriorly CVS: Regular rate and rhythm, normal S1 and S2, no gallops, no murmurs, no rubs ABDOMEN: Soft, nontender. No hepatosplenomegaly, normal bowel sounds, no guarding or rigidity. EXTREMITIES: No clubbing, no edema, no cyanosis, 2+ pulses and upper and lower extremities. MUSCULOSKELETAL: Muscle strength and tone normal. SPINE: No scoliosis or deformity SKIN: No rashes CENTRAL NERVOUS SYSTEM: Alert and oriented -3. No focal deficits, tone is normal in all 4 extremities. PSYCHIATRIC: Alert and oriented -3. Appropriate affect. Intact judgment and insight. - Labs CBC & Chem 7: 08/19/18 08:54 08/20/18 07:10 Labs: Microbiology - Last 24 Hours (Table) 08/18/18 19:55 Gram Stain - Preliminary Sputum Sputum Culture - Preliminary Santa albicans 08/18/18 02:15 Blood Culture - Preliminary Blood No Growth after 48 hours Assessment and Plan Plan: Assessment: #1. Acute hypoxemic respiratory failure related to acute right middle and right lower lobe pneumonia #2. History of advanced COPD, stage III, with baseline FEV1 of 31% of predicted, not on home oxygen #3. Chronic and ongoing nicotine dependence, patient carries [id number] smoking history #4. Hyperlipidemia #5. Chronic hepatitis C #6. Hypertension #7. Ascending thoracic aortic aneurysm, being followed in the outpatient basis, there was previously measuring 4.5 x 4.4 cm, thoracic CTA was completed showing dimension of 4.6 cm anterior-posterior at a maximum, with no evidence of aortic dissection #8. Chronic back pain #9. Solitary lung nodule in the left upper lobe previously measuring 8 mm in size, being followed in the outpatient basis by Dr. Anderson. Thoracic CTA chest also revealed a spiculated lesion at the superior segment of the right lower lobe measuring 1 cm #10. Psoriasis Plan: Continue current medical treatment, will need at least another day or 2 of IV antibiotics, today's chest x-ray still shows persistence of right mid and lower lobe infiltrate. Patient is improving, no growth on the sputum and blood cultures. No fever or chills, not quite ready for discharge. I performed a history & physical examination of the patient and discussed their management with my nurse practitioner, Ashtyn Grigsby. I reviewed the nurse practitioner's note and agree with the documented findings and plan of care. Lung sounds are positive for coarse inspiratory crackles right mid and lower lobes. The findings and the impression was discussed with the patient. I attest to the documentation by the nurse practitioner. Time with Patient: Less than 30
[2018-08-20] MEDS: LEVOFLOXACIN 750 MG TAB PO SCH (14:40)
--- NOTE | 2018-08-20 14:40 | P.PN ---
Subjective 73-year-old gentleman with a history of COPD with a baseline FEV1 of 31% of predicted history of smoking, hepatitis C, hypertension, solitary lung nodule comes in for shortness of breath and cough he was diagnosed with pneumonia in the right lower lobe. Pulmonology following the patient and his and antibiotics, breathing treatments, steroids. 08/20/2018 This is the first day of me seeing this patient. He is showed short of breath on 3 L of oxygen. His cough is better though. He is not complaining of any chest pain racing heart, no abdominal pain, nausea and vomiting, or diarrhea constipation He does not complain of any tingling numbness of his extremities right now Objective - Vital Signs Vital signs: Vital Signs Temp 97.6 F 08/20/18 07:30 Pulse 92 08/20/18 11:34 Resp 15 08/20/18 08:00 BP 149/77 08/20/18 07:30 Pulse Ox 96 08/20/18 07:56 Intake & Output 08/19/18 08/20/18 08/20/18 18:59 06:59 18:59 Intake Total 480 300 380 Output Total 400 Balance 80 300 380 Intake: Oral 480 300 380 Output: Urine 400 Other: Voiding Method Toilet Toilet Bedside Commode Bedside Commode # Voids 2 1 - Exam GENERAL : Alert, active, comfortable in no apparent distress. On 3 L nasal cannula. HEENT: Head atraumatic normocephalic, PERRLA no pallor no icterus. NOSE: Clear with pink turbinates. THROAT: No erythema or exudates. NECK: No JVD, no neck enlargement, or thyroid enlargement CHEST: No chest wall deformity. LUNGS: Patient is having wheezing and crackles in the lungs CVS: S1 and S2 normal with no audible murmur, regular rhythm. ABDOMEN: Soft nontender patient is having umbilical hernia which is reducible at this time. SKIN: No rashes Neuro: No focal deficits, tone is normal in all 4 extremities. EXTREMITIES: There is no peripheral edema. No clubbing, no cyanosis. Peripheral pulses are intact. - Labs CBC & Chem 7: 08/19/18 08:54 08/20/18 07:10 Labs: Microbiology - Last 24 Hours (Table) 08/18/18 19:55 Gram Stain - Preliminary Sputum Sputum Culture - Preliminary Santa albicans 08/18/18 02:15 Blood Culture - Preliminary Blood No Growth after 48 hours Assessment and Plan Assessment: - Acute hypoxemic respiratory failure - Right middle and right lower lobe pneumonia causing above - COPD exacerbation - Hyperlipidemia - Hypertension - Reducible umbilical hernia - Ascending thoracic cardiac aneurysm followed by an outpatient basis - Chronic back pain - Psoriasis - Solitary lung nodule in thetary lung nodule in the left upper lobe Plan - Continue antibiotics, steroids and breathing treatments as per I's recommen dations - Continue rest of the medical care - We'll continue to follow the patient up
[2018-08-20] MEDS: KETOTIFEN 0.025% OPHTH DROPS 5 ML BTL BOTH EYES SCH (20:28)
[2018-08-21 07:57] LABS: African American GFR (CKD) >90 (>60 ml/min/1.73 sqM)
[2018-08-21] MEDS: SYMBICORT 160-4.5 MCG INHALER INHALATION SCH ×2 (08:17→20:20)
[2018-08-21] MEDS: IPRATROPIUM-ALBUTEROL 3 ML NEB INHALATION SCH ×4 (08:17→20:20)
[2018-08-21] MEDS: PIPERACILLIN-TAZOBACTAM 3.375 GM in SODIUM CHLORIDE 0.9% 100 ML IVPB SCH ×3 (08:25→23:08)
[2018-08-21] MEDS: NICOTINE 14MG/24HR PATCH TRANSDERM SCH (08:28)
[2018-08-21] MEDS: predniSONE 20 MG TAB PO SCH (08:29)
[2018-08-21] MEDS: MAG HYDROX/AL HYDROX/SIMETH 30 ML CUP PO SCH ×3 (08:29→18:34)
[2018-08-21] MEDS: NAPROXEN 250 MG TAB PO SCH (08:30)
[2018-08-21] MEDS: ATORVASTATIN 10 MG TAB PO SCH (08:30)
[2018-08-21] MEDS: MULTIVITAMINS, THERA 1 EACH TAB PO SCH (08:30)
[2018-08-21] MEDS: traMADol 50 MG TAB PO PRN (08:32)
--- NOTE | 2018-08-21 13:13 | PN ---
PROGRESS NOTE DATE OF SERVICE: 08/21/2018 This is a very pleasant 73-year-old gentleman with a history of advanced chronic obstructive pulmonary disease. He presented here with complaints of increasing shortness of breath, cough and congestion. He was found to have a right lower lobe pneumonia. He is currently maintaining good O2 saturations in the 90s on 3 L/minute per nasal cannula. He is afebrile. Hemodynamically stable. Sputum culture positive for Santa. Blood cultures are negative. Creatinine 0.81. He remains on DuoNeb inhalations, Symbicort, Zosyn, and Levaquin, prednisone taper. A NicoDerm patch is in place. PHYSICAL EXAM: He is alert and oriented, in no acute distress. Vital signs revealed blood pressure 142/76, heart rate 77, respirations 16, temperature 97.8. He is 95% O2 saturation on 3 L/minute per nasal cannula. HEAD: Normocephalic sclerae anicteric. NECK: Supple. Trachea midline. LUNGS have bilateral end-expiratory wheeze, crackles in the right posterior bases diminished. HEART is regular S1 and S2. ABDOMEN: Soft, nontender. Bowel sounds are present. EXTREMITIES: There is no peripheral edema. No clubbing. No cyanosis. INVESTIGATIONS: Lab results reveal a creatinine of 0.81. Urine Legionella antigen was negative. IMPRESSION: 1. Acute hypoxemic respiratory failure secondary to an acute right middle lobe and right lower lobe pneumonia. 2. Acute exacerbation of chronic obstructive pulmonary disease secondary to above. FEV1 value 31% of predicted. Not on home oxygen. 3. Chronic and ongoing tobacco dependence of greater than 50 years. 4. Hyperlipidemia. 5. Chronic hepatitis C. 6. Hypertension. 7. Ascending thoracic aortic aneurysm being followed on an outpatient basis previously measuring 4.5 x 4.4, no evidence of dissection. 8. Chronic back pain. 9. Solitary lung nodule in the left upper lobe previously measuring 8 mm being followed in the outpatient basis. 10.Psoriasis. PLAN: The patient was seen and evaluated by Dr. Murrieta. He is stable from a pulmonary standpoint. We will continue with the current treatment plan. We will repeat a chest x-ray in the a.m. We will increase his activity as tolerated. We will continue to follow and make further recommendations based on his clinical status. [employer] statement: I, the cosigning physician, performed a history and physical examination on the patient. Lung sounds with bilateral end-expiratory wheezes, crackles in the right posterior bases diminished maintaining good O2 saturation in the 90s on 3 L/minute per nasal cannula. I attest to the above-noted as dictated by my nurse practitioner, Joi Bustamante. MMLUISL / CLARKE: [id number] /
[2018-08-21] MEDS: LEVOFLOXACIN 750 MG TAB PO SCH (15:11)
--- NOTE | 2018-08-21 18:41 | P.PN ---
Subjective 73-year-old gentleman with a history of COPD with a baseline FEV1 of 31% of predicted history of smoking, hepatitis C, hypertension, solitary lung nodule comes in for shortness of breath and cough he was diagnosed with pneumonia in the right lower lobe. Pulmonology following the patient and his and antibiotics, breathing treatments, steroids. 08/20/2018 This is the first day of me seeing this patient. He is showed short of breath on 3 L of oxygen. His cough is better though. He is not complaining of any chest pain racing heart, no abdominal pain, nausea and vomiting, or diarrhea constipation He does not complain of any tingling numbness of his extremities right now 08/21/2018 Pt says his sob is better Coughing is better no chest pain, no racing heart Objective - Vital Signs Vital signs: Vital Signs Temp 98.2 F 08/21/18 14:18 Pulse 83 08/21/18 16:09 Resp 12 08/21/18 14:18 BP 105/66 08/21/18 14:18 Pulse Ox 93 L 08/21/18 15:59 Intake & Output 08/20/18 08/21/18 08/21/18 18:59 06:59 18:59 Intake Total 530 Balance 530 Intake: Oral 530 Other: Voiding Method Toilet Toilet Bedside Commode Bedside Commode # Voids 1 1 2 - Exam GENERAL : Alert, active, comfortable in no apparent distress. On 3 L nasal cannula. HEENT: Head atraumatic normocephalic, PERRLA no pallor no icterus. NOSE: Clear with pink turbinates. THROAT: No erythema or exudates. NECK: No JVD, no neck enlargement, or thyroid enlargement CHEST: No chest wall deformity. LUNGS: Patient is having wheezing and crackles in the lungs CVS: S1 and S2 normal with no audible murmur, regular rhythm. ABDOMEN: Soft nontender patient is having umbilical hernia which is reducible at this time. SKIN: No rashes Neuro: No focal deficits, tone is normal in all 4 extremities. EXTREMITIES: There is no peripheral edema. No clubbing, no cyanosis. Peripheral pulses are intact. - Labs CBC & Chem 7: 08/19/18 08:54 08/21/18 06:51 Labs: Microbiology - Last 24 Hours (Table) 08/18/18 19:55 Gram Stain - Final Sputum Sputum Culture - Final Santa albicans 08/18/18 02:15 Blood Culture - Preliminary Blood No Growth after 72 hours Assessment and Plan Assessment: - Acute hypoxemic respiratory failure - Right middle and right lower lobe pneumonia causing above - COPD exacerbation - Hyperlipidemia - Hypertension - Reducible umbilical hernia - Ascending thoracic cardiac aneurysm followed by an outpatient basis - Chronic back pain - Psoriasis - Solitary lung nodule in thetary lung nodule in the left upper lobe Plan 08/20/2018 - Continue antibiotics, steroids and breathing treatments as per I's recommendations - Continue rest of the medical care - We'll continue to follow the patient up 08/21/2018 - Will continue anx, steroids, breathing treatments - He is improving - Anticipate dc in the next 24 to 48 hrs.
[2018-08-21] MEDS: KETOTIFEN 0.025% OPHTH DROPS 5 ML BTL BOTH EYES SCH (20:25)
[2018-08-22 06:12] LABS: Mycoplasma IgM Antibody 0.49 INDEX (<=0.90)
[2018-08-22] MEDS: IPRATROPIUM-ALBUTEROL 3 ML NEB INHALATION SCH ×4 (07:58→19:22)
[2018-08-22] MEDS: SYMBICORT 160-4.5 MCG INHALER INHALATION SCH ×2 (07:58→19:22)
[2018-08-22] MEDS: MAG HYDROX/AL HYDROX/SIMETH 30 ML CUP PO SCH ×3 (08:17→16:26)
[2018-08-22] MEDS: PIPERACILLIN-TAZOBACTAM 3.375 GM in SODIUM CHLORIDE 0.9% 100 ML IVPB SCH ×2 (08:17→16:26)
[2018-08-22] MEDS: NAPROXEN 250 MG TAB PO SCH (08:18)
[2018-08-22] MEDS: MULTIVITAMINS, THERA 1 EACH TAB PO SCH (08:18)
[2018-08-22] MEDS: predniSONE 20 MG TAB PO SCH (08:18)
[2018-08-22] MEDS: NICOTINE 14MG/24HR PATCH TRANSDERM SCH (08:18)
[2018-08-22] MEDS: ATORVASTATIN 10 MG TAB PO SCH (08:19)
[2018-08-22 09:48] LABS: African American GFR (CKD) >90 (>60 ml/min/1.73 sqM)
--- NOTE | 2018-08-22 12:49 | XR ---
EXAMINATION TYPE: XR chest 2V DATE OF EXAM: 08/22/2018 COMPARISON: 08/20/2018 HISTORY: Shortness of breath TECHNIQUE: Frontal and lateral views of the chest are obtained. FINDINGS: Scattered senescent parenchymal changes noted. Hyperinflation compatible with COPD. Perihilar infiltrate persists. Underlying mass is difficult to exclude. Improving aeration however ri ght medial lung base. Small right-sided pleural effusion noted. Heart size is stable. Mediastinal structures are stable and grossly unremarkable. No evidence for hilar prominence. Degenerative changes dorsal spine. IMPRESSION: 1. Perihilar infiltrate persists. Underlying mass is difficult to exclude. Improving aeration however right medial lung base. Small right-sided pleural effusion noted.
--- NOTE | 2018-08-22 15:14 | P.PN ---
Subjective Progress Note Date: 08/22/18 Principal diagnosis: Shortness of breath, cough congestion, mid right and lower lobe pneumonia This is a 73-year-old white male patient with history of advanced COPD, with baseline FEV1 of 31% of predicted, a chronic history of smoking, history of multiple comorbidities including chronic hepatitis C, essential hypertension, history of solitary lung nodule, and thoracic aortic aneurysm. Patient carries [id number] smoking history, was down to half a pack a day. On a combination of Advair and Spiriva and nebulized bronchodilators on as-needed basis, not on any home oxygen. Patient follows with Dr. Anderson in the pulmonary clinic, recently lost his , and has been smoking a bit more since then. On 08/17/2018 patient presented to the emergency department for evaluation of right-sided chest pain, and right arm pain with onset of symptoms on Saturday, accompanied by shortness of breath. He is also complaining of cough and increased chest congestion. Denied any history of fevers or chills, denied any diaphoresis, abdominal pain, nausea or vomiting. No lower extremity swelling. Chest x-ray was completed showing COPD with patchy consolidation in the right mid and lower lung. CT angiography of the chest with intravenous contrast showed no evidence of aortic aneurysm or dissection, no pulmonary embolism, heterogeneous airspace disease at the right lower lobe posteriorly concerning for pneumonia, and moderate centrilobular emphysema with spiculated lesion at the superior segment of the right lower lobe measuring 1 cm. Patient has a left lower lobe nodule/spiculated density that is being followed by Dr. Anderson in outpatient basis. Patient has a descending aortic aneurysm measuring 4.5 x 4.4 cm previously measuring 4.[address] thoracic aorta from 08/17/2018, aorta measures a maximum dimension of 4.6 cm anterior-posterior. No evidence of ao rtic dissection. Labs were positive for evidence of leukocytosis, white blood cell count was 18.9, hemoglobin of 14.8, serum sodium was 135, potassium 4.0, chloride was 97, normal renal profile with a BUN of 20 creatinine 0.95. Troponin was negative 1, proBNP was 85. Patient was placed on antibiotic coverage with Zosyn and vancomycin, oral prednisone, he was given a liter bolus of fluid in the emergency department. Lactic acid was within normal limits at 1.2. We're consulted for right middle and lower lobe pneumonia. The patient is seen today 08/19/2018 in follow-up on the regular medical floor. He is currently sitting up at the bedside. Awake and alert in no acute distress. The right-sided chest discomfort and wheezing. He continues with a productive cough. Sputum cultures pending. He is maintaining good O2 saturations in the 90s on 3 L/m per nasal cannula. He's been afebrile. Blood cultures reveal no growth thus far. White count 18.2. Hemoglobin 13.1. Creatinine 0.92. He remains on DuoNeb inhalations, Symbicort, Zosyn and Levaquin, Habitrol. On 08/20/2016 patient seen in follow-up on medical surgical floor. Is awake and alert, calm and comfortable, pulse ox is 96% on 3 L, no fever or chills, lung sounds revealed coarse breath sounds and some crackles at bilateral bases, chest x-ray revealed right perihilar and right lower lobe infiltrate persistence. We' ll continue current medical treatment, urine culture revealed Santa albicans only so far. Blood cultures was negative. Cotninue with the current antibiotic coverage in the form of Zosyn and Levaquin, occasional cough with production of sputum, no hemoptysis. No chest pain. On 08/22/2018 patient seen in follow-up on medical surgical floor. Clinical patient continues to improve, no worsening shortness of breath, he is on 4 L of oxygen with a pulse ox of 92%, afebrile, hemodynamically stable, lung sounds are positive for a few scattered rhonchi, no significant wheezing, no fever or chills, blood and sputum cultures were negative with exception of Santa albicans in the sputum culture that could be oral luis contamination. Patient continues on Zosyn and Levaquin, no worsening cough or congestion, or hemoptysis, no chest tenderness. Today's follow-up chest x-ray has been reviewed, showing improvement in the appearance of right medial lung base, and persistence of perihilar infiltrate. Objective - Vital Signs Vital signs: Vital Signs Temp 97.5 F L 08/22/18 07:02 Pulse 100 08/22/18 11:36 Resp 15 08/22/18 07:02 BP 153/74 08/22/18 07:02 Pulse Ox 92 L 08/22/18 07:02 Intake & Output 08/21/18 08/22/18 08/22/18 18:59 06:59 18:59 Intake Total 640 280 Balance 640 280 Weight 63.503 kg Intake: Intake, IV Titration 100 Amount Piperacillin-Tazobactam 3 100 .375 gm In Sodium Chloride 0.9% 100 ml @ 25 mls/hr IVPB Q8HR JOHINE Rx# :[id number] Oral 540 280 Other: Voiding Method Toilet # Voids 2 2 - Exam GENERAL EXAM: Alert, pleasant, 73-year-old white male, currently on 4 L of oxygen with a pulse ox of 93% comfortable in no apparent distress. HEAD: Normocephalic/atraumatic. EYES: Normal reaction of pupils, equal size. Conjunctiva pink, sclera white. NOSE: Clear with pink turbinates. THROAT: No erythema or exudates. NECK: No masses, no JVD, no thyroid enlargement, no adenopathy. CHEST: No chest wall deformity. Symmetrical expansion. LUNGS: Equal air entry with some scattered rhonchi bilaterally CVS: Regular rate and rhythm, normal S1 and S2, no gallops, no murmurs, no rubs ABDOMEN: Soft, nontender. No hepatosplenomegaly, normal bowel sounds, no guarding or rigidity. EXTREMITIES: No clubbing, no edema, no cyanosis, 2+ pulses and upper and lower extremities. MUSCULOSKELETAL: Muscle strength and tone normal. SPINE: No scoliosis or deformity SKIN: No rashes CENTRAL NERVOUS SYSTEM: Alert and oriented -3. No focal deficits, tone is normal in all 4 extremities. PSYCHIATRIC: Alert and oriented -3. Appropriate affect. Intact judgment and insight. - Labs CBC & Chem 7: 08/19/18 08:54 08/22/18 08:50 Labs: Abnormal Lab Results - Last 24 Hours (Table) 08/19/18 Range/Units 08:54 Mycoplasma pneumon IgG 0.95 H (<=0.90) INDEX Microbiology - Last 24 Hours (Table) 08/18/18 02:15 Blood Culture - Preliminary Blood No Growth after 96 hours Assessment and Plan Plan: Assessment: #1. Acute hypoxemic respiratory failure related to acute right middle and right lower lobe pneumonia #2. History of advanced COPD, stage III, with baseline FEV1 of 31% of predicted, not on home oxygen #3. Chronic and ongoing nicotine dependence, patient carries [id number] smoking history #4. Hyperlipidemia #5. Chronic hepatitis C #6. Hypertension #7. Ascending thoracic aortic aneurysm, being followed in the outpatient basis, there was previously measuring 4.5 x 4.4 cm, thoracic CTA was completed showing dimension of 4.6 cm anterior-posterior at a maximum, with no evidence of aortic dissection #8. Chronic back pain #9. Solitary lung nodule in the left upper lobe previously measuring 8 mm in size, being followed in the outpatient basis by Dr. Anderson. Thoracic CTA chest also revealed a spiculated lesion at the superior segment of the right lower lobe measuring 1 cm #10. Psoriasis Plan: Patient is clinically improving, today's follow-up chest x-ray showed improvement in aeration of the right mid lung base, and persistence of perihilar infiltrate on the right, no fever or chills, sputum blood cultures remain negative, patient has been treated with a combination of Zosyn and Levaquin, from pulmonary perspective patient is stable for discharge home today with 7 more days of Levaquin 750 mg. Prednisone taper, patient can resume his maintenance inhalers and nebulized treatments, he'll need follow-up in the office with Dr. Murrieta next week. I performed a history & physical examination of the patient and discussed their management with my nurse practitioner, Ashtyn Grigsby. I reviewed the nurse practitioner's note and agree with the documented findings and plan of care. Lung sounds are positive for coarse inspiratory crackles right mid and lower lobes. The findings and the impression was discussed with the patient. I attest to the documentation by the nurse practitioner. Time with Patient: Less than 30
[2018-08-22] MEDS: LEVOFLOXACIN 750 MG TAB PO SCH (16:26)
[2018-08-22] MEDS: traMADol 50 MG TAB PO PRN (20:16)
[2018-08-22] MEDS: KETOTIFEN 0.025% OPHTH DROPS 5 ML BTL BOTH EYES SCH (20:16)
[2018-08-23] MEDS: PIPERACILLIN-TAZOBACTAM 3.375 GM in SODIUM CHLORIDE 0.9% 100 ML IVPB SCH ×2 (00:06→08:02)
[2018-08-23 03:11] VITALS: RESP 16
[2018-08-23 07:54] VITALS: BP 135/73; TEMP 98.6
[2018-08-23] MEDS: traMADol 50 MG TAB PO PRN (08:03)
[2018-08-23] MEDS: predniSONE 20 MG TAB PO SCH (08:03)
[2018-08-23] MEDS: MULTIVITAMINS, THERA 1 EACH TAB PO SCH (08:03)
[2018-08-23] MEDS: NAPROXEN 250 MG TAB PO SCH (08:04)
[2018-08-23] MEDS: ATORVASTATIN 10 MG TAB PO SCH (08:06)
[2018-08-23] MEDS: NICOTINE 14MG/24HR PATCH TRANSDERM SCH (08:06)
[2018-08-23] MEDS: MAG HYDROX/AL HYDROX/SIMETH 30 ML CUP PO SCH (08:06)
[2018-08-23] MEDS: SYMBICORT 160-4.5 MCG INHALER INHALATION SCH (08:17)
[2018-08-23] MEDS: IPRATROPIUM-ALBUTEROL 3 ML NEB INHALATION SCH (08:17)
[2018-08-23 08:26] VITALS: PULSE 94
--- NOTE | 2018-09-05 22:44 | P.DS ---
Providers Date of admission: 08/18/18 04:10 Expected date of discharge: 08/22/18 Attending physician: Gerber Grissom Consults: 08/18/18 14:25 Consult Physician Routine Consulting Provider: Lino Murrieta Consult Reason/Comments: copd/ pneumonia Do you want consulting provider notified?: Yes Primary care physician: Gerber Grissom Hospital Course: Discharge diagnosis - Acute hypoxemic respiratory failure - Right middle and right lower lobe pneumonia causing above - COPD exacerbation - Hyperlipidemia - Hypertension - Reducible umbilical hernia - Ascending thoracic cardiac aneurysm followed by an outpatient basis - Chronic back pain - Psoriasis - Solitary lung nodule in thetary lung nodule in the left upper lobe Hospital course: 73-year-old gentleman with a history of COPD with a baseline FEV1 of 31% of predicted history of smoking, hepatitis C, hypertension, solitary lung nodule comes in for shortness of breath and cough he was diagnosed with pneumonia in the right lower lobe. Pulmonology following the patient and he was started on antibiotics,breathing treatments, steroids. The patient was not on home oxygen but here was using oxygen. He was continued on levaquin and zosyn. His breathing started to improve very slowly. On 08/22/2018 The patient was breathing better, his cough was better as well. no chest pain, no racing heart. no abd pain, no nausea, no vomiting GENERAL : Alert, active, comfortable in no apparent distress. On 3 L nasal cannula. HEENT: Head atraumatic normocephalic, PERRLA no pallor no icterus. NOSE: Clear with pink turbinates. THROAT: No erythema or exudates. NECK: No JVD, no neck enlargement, or thyroid enlargement CHEST: No chest wall deformity. LUNGS: Patient is having wheezing and crackles in the lungs CVS: S1 and S2 normal with no audible murmur, regular rhythm. ABDOMEN: Soft nontender patient is having umbilical hernia which is reducible at this time. SKIN: No rashes Neuro: No focal deficits, tone is normal in all 4 extremities. EXTREMITIES: There is no peripheral edema. No clubbing, no cyanosis. Peripheral pulses are intact. The paitent will be disharged . Patient was cleared by pulmonary he will be on abx and steroid taper. Will need home oxygen Will need to f/u with pulmonary as op Patient Condition at Discharge: Stable Plan - Discharge Summary Discharge Rx Participant: No New Discharge Prescriptions: New Nicotine 14Mg/24Hr Patch [Habitrol] 1 patch TRANSDERM DAILY 30 Days #30 patch Levofloxacin [Levaquin] 750 mg PO DAILY 7 Days #7 tab predniSONE 0 mg PO DIRECTED 12 Days #24 tab No Action traMADol HCL [Ultram] 50 mg PO DAILY PRN PRN Reason: Pain Albuterol Inhaler [Ventolin Hfa Inhaler] 2 puff INHALATION RT-Q6H PRN PRN Reason: Shortness Of Breath Tiotropium [place] [Spiriva] 1 cap INHALATION RT-DAILY Simvastatin [Zocor] 20 mg PO DAILY Olopatadine HCl 1 applic BOTH EYES HS Naproxen 500 mg PO DAILY Mylanta [id number] Chew 1 tab PO PC-TID Multivitamins, Thera [Multivitamin (formulary)] 1 tab PO DAILY Ergocalciferol [Vitamin D2 (DRISDOL)] 50,000 unit PO Q30D Fluticasone/Salmeterol [Advair 500-50 Diskus] 1 puff INHALATION RT-BID Albuterol Nebulized [Ventolin Nebulized] 2.5 mg INHALATION RT-Q6H PRN PRN Reason: Shortness Of Breath Discharge Medication List Albuterol Inhaler [Ventolin Hfa Inhaler] 2 puff INHALATION RT-Q6H PRN 08/17/18 [History] Albuterol Nebulized [Ventolin Nebulized] 2.5 mg INHALATION RT-Q6H PRN 08/17/18 [History] Ergocalciferol [Vitamin D2 (DRISDOL)] 50,000 unit PO Q30D 08/17/18 [History] Fluticasone/Salmeterol [Advair 500-50 Diskus] 1 puff INHALATION RT-BID 08/17/18 [History] Multivitamins, Thera [Multivitamin (formulary)] 1 tab PO DAILY 08/17/18 [History] Mylanta [id number] Chew 1 tab PO PC-TID 08/17/18 [History] Naproxen 500 mg PO DAILY 08/17/18 [History] Olopatadine HCl 1 applic BOTH EYES HS 08/17/18 [History] Simvastatin [Zocor] 20 mg PO DAILY 08/17/18 [History] Tiotropium [place] [Spiriva] 1 cap INHALATION RT-DAILY 08/17/18 [History] traMADol HCL [Ultram] 50 mg PO DAILY PRN 08/17/18 [History] Levofloxacin [Levaquin] 750 mg PO DAILY 7 Days #7 tab 08/22/18 [Rx] Nicotine 14Mg/24Hr Patch [Habitrol] 1 patch TRANSDERM DAILY 30 Days #30 patch 08/22/18 [Rx] predniSONE 0 mg PO DIRECTED 12 Days #24 tab 08/22/18 [Rx] Follow up Appointment(s)/Referral(s): [facility],Equipment [NON-STAFF] - Lino Murrieta MD [STAFF PHYSICIAN] - 1-2 days [facility] Visiting Nurse, [NON-STAFF] - Patient Instructions/Handouts: COPD (Chronic Obstructive Pulmonary Disease) (DC) Activity/Diet/Wound Care/Special Instructions: [facility] will deliver portable oxygen to the bedside on 08/22/18 and a concentrator to the home. Discharge Disposition: HOME WITH HOME HEALTH SERVICES
== END 2018-08-23 11:04 | disposition home or self-care (01) | DRG 193 ==
LOC: EC 22:03 → 4SSUR 08-18 04:10
PROVIDERS: ADMIT Family Medicine; ATTEND Family Medicine
DX: J18.1 Lobar pneumonia, unspecified organism (principal); J96.01 Acute respiratory failure with hypoxia; J44.1 Chronic obstructive pulmonary disease with (acute) exacerbation; J44.0 Chronic obstructive pulmonary disease with (acute) lower respiratory infection; E85.9 Amyloidosis, unspecified; I25.3 Aneurysm of heart; L40.9 Psoriasis, unspecified; R91.1 Solitary pulmonary nodule; F17.200 Nicotine dependence, unspecified, uncomplicated; I71.2 Thoracic aortic aneurysm, without rupture; G89.29 Other chronic pain; M54.9 Dorsalgia, unspecified; I10 Essential (primary) hypertension; E78.5 Hyperlipidemia, unspecified; K42.9 Umbilical hernia without obstruction or gangrene; Z79.899 Other long term (current) drug therapy; Z98.1 Arthrodesis status
CPT/HCPCS: 36415; 71046; 71275; 74174; 80048; 80053; 80076; 82565; 83605; 83690; 83880; 84484; 85025; 86738; 87040; 87070; 87205; 87449; 94640; 94760; 96361; 96365; 96366; 99285

== ENCOUNTER 2018-08-24 19:35 | Inpatient (IN) | payer MEDICARE ==
[2018-08-24] MEDS ORDERED: ALBUTEROL NEBULIZED 2.5 MG/3 ML INHALATION STA (19:46)
[2018-08-24] MEDS ORDERED: SODIUM CHLORIDE 0.9% 500 ML 500 ML IV STA (19:46)
[2018-08-24] MEDS ORDERED: SODIUM CHLORIDE 0.9% 1,000 ML IV STA ×2 (19:46)
[2018-08-24] MEDS ORDERED: IPRATROPIUM 0.5 MG/2.5 ML NEBU INHALATION STA (19:46)
--- NOTE | 2018-08-24 20:02 | ED ---
SOB HPI - General Chief Complaint: Weakness Stated Complaint: Weakness Time Seen by Provider: 08/24/18 19:46 Source: patient, RN notes reviewed, old records reviewed Mode of arrival: ambulatory Limitations: no limitations - History of Present Illness Initial Comments: This is a 73-year-old male the ER for evaluation of pneumonia. Weakness. Patient has recurrent visit for discharge yesterday. Patient was admitted for pneumonia, was feeling better after we went home but symptoms are significantly progressed stretches or shortness of breath chest pain and feeling weak since yesterday. Patient is taking medications as prescribed. No new complaints MD Complaint: shortness of breath, cough -: days(s) Severity: moderate, severe Severity scale (1-10): 5 Quality: aching Consistency: constant Improves With: oxygen, rest Worsens With: exertion, movement Context: recent URI Associated Symptoms: fever, cough, palpitations, nausea/vomiting - Related Data Home Medications Medication Instructions Recorded Confirmed Albuterol Inhaler [Ventolin Hfa 2 puff INHALATION RT-Q6H PRN 08/17/18 08/24/18 Inhaler] Albuterol Nebulized [Ventolin 2.5 mg INHALATION RT-Q6H PRN 08/17/18 08/24/18 Nebulized] Ergocalciferol [Vitamin D2] 50,000 unit PO Q30D 08/17/18 08/24/18 Fluticasone/Salmeterol [Advair 1 puff INHALATION RT-BID 08/17/18 08/24/18 500-50 Diskus] Multivitamins, Thera [Multivitamin 1 tab PO DAILY 08/17/18 08/24/18 (formulary)] Mylanta [id number] Chew 1 tab PO PC-TID 08/17/18 08/24/18 Naproxen 500 mg PO DAILY 08/17/18 08/24/18 Olopatadine HCl 1 applic BOTH EYES HS 08/17/18 08/24/18 Simvastatin [Zocor] 20 mg PO DAILY 08/17/18 08/24/18 Tiotropium [place] [Spiriva] 1 cap INHALATION RT-DAILY 08/17/18 08/24/18 traMADol HCL [Ultram] 50 mg PO DAILY PRN 08/17/18 08/24/18 Previous Rx's Medication Instructions Recorded Levofloxacin [Levaquin] 750 mg PO DAILY 7 Days #7 tab 08/22/18 Nicotine 14Mg/24Hr Patch [Habitrol] 1 patch TRANSDERM DAILY 30 Days 08/22/18 #30 patch predniSONE 0 mg PO DIRECTED 12 Days #24 tab 08/22/18 Allergies Allergy/AdvReac Type Severity Reaction Status Date / Time No Known Allergies Allergy Verified 08/24/18 20:19 Review of Systems ROS Statement: Those systems with pertinent positive or pertinent negative responses have been documented in the HPI. ROS Other: All systems not noted in ROS Statement are negative. Past Medical History Past Medical History: Hyperlipidemia History of Any Multi-Drug Resistant Organisms: None Reported Additional Past Surgical History / Comment(s): back fusion. hip surgery x 2 Past Psychological History: No Psychological Hx Reported Smoking Status: Current every day smoker Past Alcohol Use History: None Reported Past Drug Use History: None Reported - Past Family History Father Family Medical History: Myocardial Infarction (ID) Mother Family Medical History: Myocardial Infarction (ID) General Exam Limitations: no limitations General appearance: alert, in no apparent distress, anxious Head exam: Present: atraumatic, normocephalic, normal inspection Eye exam: Present: normal appearance, PERRL, EOMI. Absent: scleral icterus, conjunctival injection, periorbital swelling ENT exam: Present: normal exam, mucous membranes moist Neck exam: Present: normal inspection. Absent: tenderness, meningismus, lymphadenopathy Respiratory exam: Present: respiratory distress, wheezes, rales, accessory muscle use, decreased breath sounds, prolonged expiratory. Absent: rhonchi, stridor Cardiovascular Exam: Present: normal rhythm, tachycardia, normal heart sounds. Absent: systolic murmur, diastolic murmur, rubs, gallop, clicks GI/Abdominal exam: Present: soft, normal bowel sounds. Absent: distended, tenderness, guarding, rebound, rigid Extremities exam: Present: normal inspection, full ROM, normal capillary refill. Absent: tenderness, pedal edema, joint swelling, calf tenderness Back exam: Present: normal inspection Neurological exam: Present: alert, oriented X3, CN II-XII intact Psychiatric exam: Present: normal affect, normal mood Skin exam: Present: warm, dry, intact, normal color. Absent: rash Course Vital Signs 08/24/18 08/24/18 08/24/18 19:44 20:16 20:33 Temperature 98.3 F Pulse Rate 121 H 112 H Respiratory 20 18 20 Rate Blood Pressure 112/73 113/79 O2 Sat by Pulse 90 L 93 L Oximetry 08/24/18 08/24/18 21:13 21:29 Temperature Pulse Rate 107 H 107 H Respiratory Rate Blood Pressure O2 Sat by Pulse Oximetry - Reevaluation(s) Reevaluation #1: 08/24/18 21:34 Medical record is reviewed Reevaluation #2: 08/24/18 21:34 Patient has no real improvement here in the ER Medical Decision Making - Medical Decision Making 73 male the ER for evaluation. Patient does say for evaluation of recurrent shortness of breath increased pneumonia from prior. We'll admit for persistent IV antibiotics. She was monitoring - Lab Data Result diagrams: 08/24/18 20:04 08/24/18 20:04 Lab Results 08/24/18 08/24/18 08/24/18 Range/Units 20:04 20:04 20:04 WBC 17.8 H (3.8-10.6) k/uL RBC 5.38 (4.30-5.90) m/uL Hgb 15.4 (13.0-17.5) gm/dL Hct 46.9 (39.0-53.0) % MCV 87.2 (80.0-100.0) fL MCH 28.6 (25.0-35.0) pg MCHC 32.8 (31.0-37.0) g/dL RDW 13.9 (11.5-15.5) % Plt Count 315 D (150-450) k/uL Neutrophils % 91 % Lymphocytes % 5 % Monocytes % 3 % Eosinophils % 1 % Basophils % 0 % Neutrophils # 16.3 H (1.3-7.7) k/uL Lymphocytes # 0.8 L (1.0-4.8) k/uL Monocytes # 0.5 (0-1.0) k/uL Eosinophils # 0.1 (0-0.7) k/uL Basophils # 0.0 (0-0.2) k/uL PT (9.0-12.0) sec INR (<1.2) APTT (22.0-30.0) sec Sodium 134 L (137-145) mmol/L Potassium 4.6 (3.5-5.1) mmol/L Chloride 96 L (98-107) mmol/L Carbon Dioxide 29 (22-30) mmol/L Anion Gap 9 mmol/L BUN 27 H (9-20) mg/dL Creatinine 0.74 (0.66-1.25) mg/dL Est GFR (CKD-EPI)AfAm >90 (>60 ml/min/1.73 sqM) Est GFR (CKD-EPI)NonAf >90 (>60 ml/min/1.73 sqM) Glucose 107 H (74-99) mg/dL Calcium 9.1 (8.4-10.2) mg/dL Magnesium 1.9 (1.6-2.3) mg/dL Total Bilirubin 0.7 (0.2-1.3) mg/dL AST 22 (17-59) U/L ALT 28 (21-72) U/L Alkaline Phosphatase 51 (38-126) U/L Troponin I (0.000-0.034) ng/mL NT-Pro-B Natriuret Pep 247 pg/mL Total Protein 6.0 L (6.3-8.2) g/dL Albumin 3.4 L (3.5-5.0) g/dL 08/24/18 08/24/18 Range/Units 20:04 20:04 WBC (3.8-10.6) k/uL RBC (4.30-5.90) m/uL Hgb (13.0-17.5) gm/dL Hct (39.0-53.0) % MCV (80.0-100.0) fL MCH (25.0-35.0) pg MCHC (31.0-37.0) g/dL RDW (11.5-15.5) % Plt Count (150-450) k/uL Neutrophils % % Lymphocytes % % Monocytes % % Eosinophils % % Basophils % % Neutrophils # (1.3-7.7) k/uL Lymphocytes # (1.0-4.8) k/uL Monocytes # (0-1.0) k/uL Eosinophils # (0-0.7) k/uL Basophils # (0-0.2) k/uL PT 10.9 (9.0-12.0) sec INR 1.0 (<1.2) APTT 22.8 (22.0-30.0) sec Sodium (137-145) mmol/L Potassium (3.5-5.1) mmol/L Chloride (98-107) mmol/L Carbon Dioxide (22-30) mmol/L Anion Gap mmol/L BUN (9-20) mg/dL Creatinine (0.66-1.25) mg/dL Est GFR (CKD-EPI)AfAm (>60 ml/min/1.73 sqM) Est GFR (CKD-EPI)NonAf (>60 ml/min/1.73 sqM) Glucose (74-99) mg/dL Calcium (8.4-10.2) mg/dL Magnesium (1.6-2.3) mg/dL Total Bilirubin (0.2-1.3) mg/dL AST (17-59) U/L ALT (21-72) U/L Alkaline Phosphatase (38-126) U/L Troponin I <0.012 (0.000-0.034) ng/mL NT-Pro-B Natriuret Pep pg/mL Total Protein (6.3-8.2) g/dL Albumin (3.5-5.0) g/dL - EKG Data -: EKG Interpreted by Me (EKG shows sinus tachycardia rate 160, [place] 136, QRS 70, QTc 455) - Radiology Data Radiology results: report reviewed (Chest x-rays positive for increased pneumonia from discharge), image reviewed Disposition Clinical Impression: Right lower lobe pneumonia, COPD exacerbation, Failure of outpatient treatment Disposition: HOME SELF-CARE Condition: Fair Is patient prescribed a controlled substance at d/c from ED?: No Referrals: Gerber Grissom MD [Primary Care Provider] - 1-2 days
[2018-08-24 20:21] LABS: Basophils % (A) 0 %; Eosinophils # (A) 0.1 k/uL (0-0.7); Eosinophils % (A) 1 %; HCT 46.9 % (39.0-53.0); HGB 15.4 gm/dL (13.0-17.5); Lymphocytes # (A) 0.8 k/uL (1.0-4.8); Lymphocytes % (A) 5 %; MCH 28.6 pg (25.0-35.0); MCHC 32.8 g/dL (31.0-37.0); MCV 87.2 fL (80.0-100.0); Mean Platelet Volume 7.1; Monocytes # (A) 0.5 k/uL (0-1.0); Monocytes % (A) 3 %; Neutrophils # (A) 16.3 k/uL (1.3-7.7); Neutrophils % (A) 91 %; RBC 5.38 m/uL (4.30-5.90); RDW 13.9 % (11.5-15.5); WBC 17.8 k/uL (3.8-10.6)
[2018-08-24 20:26] LABS: Partial Thromboplastin Time 22.8 sec (22.0-30.0); Platelet Count 315 k/uL (150-450); Prothrombin Time 10.9 sec (9.0-12.0)
[2018-08-24 20:28] LABS: ALT 28 U/L (21-72); AST 22 U/L (17-59); African American GFR (CKD) >90 (>60 ml/min/1.73 sqM); Albumin 3.4 g/dL (3.5-5.0); Alkaline Phosphatase 51 U/L (38-126); Anion Gap 9 mmol/L; Blood Urea Nitrogen 27 mg/dL (9-20); Calcium 9.1 mg/dL (8.4-10.2); Carbon Dioxide 29 mmol/L (22-30); Chloride 96 mmol/L (98-107); Glucose 107 mg/dL (74-99); Magnesium 1.9 mg/dL (1.6-2.3); Potassium 4.6 mmol/L (3.5-5.1); Sodium 134 mmol/L (137-145); Total Bilirubin 0.7 mg/dL (0.2-1.3)
--- NOTE | 2018-08-24 21:02 | XR ---
EXAMINATION TYPE: XR chest 2V DATE OF EXAM: 08/24/2018 COMPARISON: 08/22/2018 HISTORY: Difficulty breathing. Weakness TECHNIQUE: Frontal and lateral views of the chest are obtained. FINDINGS: There is a diffuse airspace infiltrate in the right lower lobe. Left lung is fairly clear. Heart size is normal. Thoracic aorta is atheromatous. There are chest leads. IMPRESSION: Right lower lobe pneumonia and pleural reaction slightly increased compared to last exam . No heart failure.
[2018-08-24] MEDS ORDERED: PNEUMONIA PROTOCOL UTILIZED 1 EACH MISC PO PRN (21:35)
[2018-08-24] MEDS ORDERED: ALBUTEROL NEBULIZED 2.5 MG/3 ML INHALATION PRN (21:35)
[2018-08-24] MEDS ORDERED: LEVOFLOXACIN 750MG-D5W PMX 750 MG in DEXTROSE/WATER 1 150ML.BAG IVPB STA (21:35)
[2018-08-24] MEDS ORDERED: PIPERACILLIN-TAZOBACTAM 3.375 GM in SODIUM CHLORIDE 0.9% 100 ML IVPB STA (21:35)
[2018-08-25] MEDS: SODIUM CHLORIDE 0.9% 1,000 ML IV SCH ×3 (02:25→17:08)
[2018-08-25] MEDS: HYDROmorphone 0.5 MG/0.5 ML SYRINGE IVP PRN (04:24)
[2018-08-25] MEDS: PIPERACILLIN-TAZOBACTAM 3.375 GM in SODIUM CHLORIDE 0.9% 100 ML IVPB SCH ×3 (05:34→21:12)
[2018-08-25] MEDS: ENOXAPARIN 40 MG/0.4 ML SYRINGE SQ SCH (07:39)
--- NOTE | 2018-08-25 08:44 | XR ---
EXAMINATION TYPE: XR chest 2V DATE OF EXAM: 08/25/2018 COMPARISON: 08/24/2018, CT 08/18/2018 INDICATION: Pneumonia TECHNIQUE: Frontal and lateral views of the chest are obtained. FINDINGS: The heart size is normal. The pulmonary vasculature is normal. There is a large consolidation in the right hilar region. Increased lung markings are at the right ba se. A small right pleural effusion and/or atelectasis is developing. Findings are worsening from comp arison.. IMPRESSION: 1. Worsening right perihilar and lower lobe pneumonia
[2018-08-25] MEDS: IPRATROPIUM-ALBUTEROL 3 ML NEB INHALATION SCH ×4 (08:59→20:40)
[2018-08-25] MEDS ORDERED: IPRATROPIUM-ALBUTEROL 3 ML NEB INHALATION PRN (11:07)
[2018-08-25 12:57] LABS: HCT 39.7 % (39.0-53.0); HGB 13.1 gm/dL (13.0-17.5); MCH 29.3 pg (25.0-35.0); MCHC 33.1 g/dL (31.0-37.0); MCV 88.4 fL (80.0-100.0); Mean Platelet Volume 7.8; Platelet Count 263 k/uL (150-450); RBC 4.49 m/uL (4.30-5.90); RDW 14.7 % (11.5-15.5); WBC 30.7 k/uL (3.8-10.6)
[2018-08-25 13:27] LABS: African American GFR (CKD) >90 (>60 ml/min/1.73 sqM); Anion Gap 7 mmol/L; Blood Urea Nitrogen 23 mg/dL (9-20); Calcium 8.4 mg/dL (8.4-10.2); Carbon Dioxide 28 mmol/L (22-30); Chloride 98 mmol/L (98-107); Glucose 91 mg/dL (74-99); Sodium 133 mmol/L (137-145)
[2018-08-25] MEDS: NICOTINE 14MG/24HR PATCH TRANSDERM SCH (14:40)
[2018-08-25] MEDS ORDERED: VANCOMYCIN IV PER PHARMACY 1 EACH MISC MISCELLANE PRN (14:41)
[2018-08-25] MEDS: traMADol 50 MG TAB PO PRN (14:41)
[2018-08-25 15:24] VITALS: BMI 21.9
[2018-08-25] MEDS: NAPROXEN 250 MG TAB PO SCH (15:33)
[2018-08-25] MEDS: methylPREDNISolone SOD SUCCI 125 MG/2 ML VIAL IV SCH ×2 (15:33→17:34)
--- NOTE | 2018-08-25 15:42 | P.PN ---
Subjective Progress Note Date: 08/25/18 Principal diagnosis: Shortness of breath, cough, congestion, worsening right mid and lower lobe pneumonia This is a 73-year-old white male patient with history of advanced COPD, with baseline FEV1 of 31% of predicted, a chronic history of smoking, history of multiple comorbidities including chronic hepatitis C, essential hypertension, history of solitary lung nodule, and thoracic aortic aneurysm. Patient carries [id number] smoking history, was down to half a pack a day. On a combination of Advair and Spiriva and nebulized bronchodilators on as-needed basis, not on any home oxygen. Patient follows with Dr. Anderson in the pulmonary clinic, recently lost his , and has been smoking a bit more since then. On 08/17/2018 patient presented to the emergency department for evaluation of right-sided chest pain, and right arm pain with onset of symptoms on Saturday, accompanied by shortness of breath. He is also complaining of cough and increased chest congestion. Denied any history of fevers or chills, denied any diaphoresis, abdominal pain, nausea or vomiting. No lower extremity swelling. Chest x-ray was completed showing COPD with patchy consolidation in the right mid and lower lung. CT angiography of the chest with intravenous contrast showed no evidence of aortic aneurysm or dissection, no pulmonary embolism, heterogeneous airspace disease at the right lower lobe posteriorly concerning for pneumonia, and moderate centrilobular emphysema with spiculated lesion at the superior segment of the right lower lobe measuring 1 cm. Patient has a left lower lobe nodule/spiculated density that is being followed by Dr. Anderson in outpatient basis. Patient has a descending aortic aneurysm measuring 4.5 x 4.4 cm previously measuring 4.[address] thoracic aorta from 08/17/2018, aorta measures a maximum dimension of 4.6 cm anterior-posterior. No evidence of aortic dissection. Labs were positive for evidence of leukocytosis, white blood cell count was 18.9, hemoglobin of 14.8, serum sodium was 135, potassium 4.0, chloride was 97, normal renal profile with a BUN of 20 creatinine 0.95. Troponin was negative 1, proBNP was 85. Patient was placed on antibiotic coverage with Zosyn and vancomycin, oral prednisone, he was given a liter bolus of fluid in the emergency department. Lactic acid was within normal limits at 1.2. We're consulted for right middle and lower lobe pneumonia. The patient is seen today 08/19/2018 in follow-up on the regular medical floor. He is currently sitting up at the bedside. Awake and alert in no acute distres s. The right-sided chest discomfort and wheezing. He continues with a productive cough. Sputum cultures pending. He is maintaining good O2 saturations in the 90s on 3 L/m per nasal cannula. He's been afebrile. Blood cultures reveal no growth thus far. White count 18.2. Hemoglobin 13.1. Crea tinine 0.92. He remains on DuoNeb inhalations, Symbicort, Zosyn and Levaquin, Habitrol. On 08/20/2016 patient seen in follow-up on medical surgical floor. Is awake and alert, calm and comfortable, pulse ox is 96% on 3 L, no fever or chills, lung sounds revealed coarse breath sounds and some crackles at bilateral bases, chest x-ray revealed right perihilar and right lower lobe infiltrate persistence. We'll continue current medical treatment, urine culture revealed Santa albicans only so far. Blood cultures was negative. Cotninue with the current antibiotic coverage in the form of Zosyn and Levaquin, occasional cough with production of sputum, no hemoptysis. No chest pain. On 08/22/2018 patient seen in follow-up on medical surgical floor. Clinical patient continues to improve, no worsening shortness of breath, he is on 4 L of oxygen with a pulse ox of 92%, afebrile, hemodynamically stable, lung sounds are positive for a few scattered rhonchi, no significant wheezing, no fever or chills, blood and sputum cultures were negative with exception of Santa albicans in the sputum culture that could be oral luis contamination. Patient continues on Zosyn and Levaquin, no worsening cough or congestion, or hemoptysis, no chest tenderness. Today's follow-up chest x-ray has been reviewed, showing improvement in the appearance of right medial lung base, and persistence of perihilar infiltrate. On 08/25/2018 patient seen medical surgical floor, after patient was discharged home on 08/23/2018 patient developed right lower chest wall pain, increased shortness of breath, and patient came back to the hospital for reevaluation. He states he had a low-grade fever, he had a cough with production of brownish colored sputum, during last admission patient was treated with Zosyn and Levaquin, and sputum cultures did not show any growth. Patient's chest x-ray appearance of the right mid and right lower lobe pneumonia was improving, patient was clinically improving and patient was subsequently discharged home. Denies smoking when he returned home. He was taking his medications as prescribed according to him. He was also feeling weak. Chest x-ray was obtained in the emergency department showing worsening right perihilar and right lower lobe pneumonia patient was admitted for IV antibiotics in the form of Levaquin and Zosyn. Overnight he has been afebrile, he is currently on 4 L of oxygen with a pulse ox of 92%, hemodynamically stable, is on breathing treatments, lung sounds are positive for coarse his paternal crackles over right mid and lower lobe, he was given IV fluids, admission blood work was reviewed showing white blood cell count of 17.8, hemoglobin of 15.4, sodium was 134, this is 4.6, chloride is 96, his BUN was 27, creatinine is 0.74, troponin was negative 1, proBNP was 247. Objective - Vital Signs Vital signs: Vital Signs Temp 98.1 F 08/25/18 14:38 Pulse 113 H 08/25/18 14:38 Resp 15 08/25/18 14:38 BP 114/69 08/25/18 14:38 Pulse Ox 92 L 08/25/18 14:38 Intake & Output 08/24/18 08/25/18 08/25/18 18:59 06:59 18:59 Intake Total 1680 Output Total 700 Balance -700 1680 Weight 63.503 kg 63.503 kg Intake: Intake, IV Titration 800 Amount Piperacillin-Tazobactam 3 100 .375 gm In Sodium Chloride 0.9% 100 ml @ 25 mls/hr IVPB Q8H JOHNIE Rx#: [id number] Sodium Chloride 0.9% 1, 700 000 ml @ 100 mls/hr IV . Q10H STA Rx#:[id number] Oral 880 Output: Urine 700 Other: # Voids 1 - Exam GENERAL EXAM: Alert, pleasant, 73-year-old white male, currently on 4 L of oxygen with a pulse ox of 93% comfortable in no apparent distress. HEAD: Normocephalic/atraumatic. EYES: Normal reaction of pupils, equal size. Conjunctiva pink, sclera white. NOSE: Clear with pink turbinates. THROAT: No erythema or exudates. NECK: No masses, no JVD, no thyroid enlargement, no adenopathy. CHEST: No chest wall deformity. Symmetrical expansion. LUNGS: Equal air entry with coarse respiratory crackles over right lower lobe and right middle lobe CVS: Regular rate and rhythm, normal S1 and S2, no gallops, no murmurs, no rubs ABDOMEN: Soft, nontender. No hepatosplenomegaly, normal bowel sounds, no guarding or rigidity. EXTREMITIES: No clubbing, no edema, no cyanosis, 2+ pulses and upper and lower extremities. MUSCULOSKELETAL: Muscle strength and tone normal. SPINE: No scoliosis or deformity SKIN: No rashes CENTRAL NERVOUS SYSTEM: Alert and oriented -3. No focal deficits, tone is normal in all 4 extremities. PSYCHIATRIC: Alert and oriented -3. Appropriate affect. Intact judgment and insight. - Labs CBC & Chem 7: 08/25/18 11:53 08/25/18 11:53 Labs: Abnormal Lab Results - Last 24 Hours (Table) 08/24/18 08/24/18 08/25/18 Range/Units 20:04 20:04 11:53 WBC 17.8 H 30.7 H (3.8-10.6) k/uL Neutrophils # 16.3 H (1.3-7.7) k/uL Lymphocytes # 0.8 L (1.0-4.8) k/uL Sodium 134 L (137-145) mmol/L Chloride 96 L (98-107) mmol/L BUN 27 H (9-20) mg/dL Glucose 107 H (74-99) mg/dL Total Protein 6.0 L (6.3-8.2) g/dL Albumin 3.4 L (3.5-5.0) g/dL 08/25/18 Range/Units 11:53 WBC (3.8-10.6) k/uL Neutrophils # (1.3-7.7) k/uL Lymphocytes # (1.0-4.8) k/uL Sodium 133 L (137-145) mmol/L Chloride (98-107) mmol/L BUN 23 H (9-20) mg/dL Glucose (74-99) mg/dL Total Protein (6.3-8.2) g/dL Albumin (3.5-5.0) g/dL Assessment and Plan Plan: Assessment: #1. Acute hypoxemic respiratory failure related to worsening right middle and right lower lobe pneumonia, consider healthcare acquired pneumonia #2. Recent admission for acute right middle and right lower lobe pneumonia, and was treated with a combination of Zosyn and Levaquin, cultures did not show any growth, patient was showing radiographic and clinical improvement and was discharged home on 08/23/2018, after going home patient's started having increasing shortness of breath, and right lower pleuritic chest pain and hence came back to the hospital within 24 hours of discharge #3. History of advanced COPD, stage III, with baseline FEV1 of 31% of predicted, not on home oxygen #4. Chronic and ongoing nicotine dependence, patient carries [id number] smoking history #5. Hyperlipidemia #6. Chronic hepatitis C #7. Hypertension #8. Ascending thoracic aortic aneurysm, being followed in the outpatient basis, there was previously measuring 4.5 x 4.4 cm, thoracic CTA was completed showing dimension of 4.6 cm anterior-posterior at a maximum, with no evidence of aortic dissection #9. Chronic back pain #10. Solitary lung nodule in the left upper lobe previously measuring 8 mm in size, being followed in the outpatient basis by Dr. Anderson. Thoracic CTA chest also revealed a spiculated lesion at the superior segment of the right lower lobe measuring 1 cm #11. Psoriasis Plan: Continue Levaquin and Zosyn, we will add vancomycin. Send sputum culture. Monitor fever pattern, chest x-ray shows worsening right mid and right lower lobe pneumonia, we'll put the patient on the schedule for bronchoscopy and BAL for Saturday, and by mouth after midnight on Saturday. Continue with current medical treatment. Continue to follow I performed a history & physical examination of the patient and discussed their management with my nurse practitioner, Ashtyn Grigsby. I reviewed the nurse practitioner's note and agree with the documented findings and plan of care. Lung sounds are positive for coarse right lower lobe crackles. The findings and the impression was discussed with the patient. I attest to the documentation by the nurse practitioner. Time with Patient: Greater than 30
[2018-08-25] MEDS: VANCOMYCIN 1,250 MG in SODIUM CHLORIDE 0.9% 250 ML IVPB SCH ×2 (16:48→23:52)
[2018-08-25] MEDS: MAG HYDROX/AL HYDROX/SIMETH 30 ML CUP PO SCH (17:35)
[2018-08-25] MEDS: KETOTIFEN 0.025% OPHTH DROPS 5 ML BTL BOTH EYES SCH (21:11)
--- NOTE | 2018-08-25 22:15 | HP ---
HISTORY AND PHYSICAL CHIEF COMPLAINT: Cough, fever, shortness of breath. HISTORY OF PRESENT ILLNESS: This gentleman was readmitted after recently being discharged. He came in when I was out of town. He apparently went home and immediately started to have chills, fever, shortness of breath and a tight congested cough and came back and was admitted as pneumonitis. Review of systems, past medical history, family history, personal and social histories were not obtained by me at the time admission. He does have an extensive and long history of COPD. PHYSICAL EXAMINATION: Blood pressure is 130/87 with a pulse of 79 and regular, respirations of 33, and temperature of 99. In general he appeared to be slender. His face was flushed. Head, ears, eyes, nose, mouth and throat were otherwise normal except for somewhat dry mucous membranes. Neck veins were not distended. Chest demonstrated very poor breath sounds with increased AP diameter and expiratory wheezing with scattered rales and rhonchi. Cardiac exam demonstrated sinus rhythm with no murmurs or extra sounds. The abdomen was flat, soft, nontender. Extremities were normal. Neurologically he was intact. IMPRESSION: 1. Persistent, recurrent bronchial pneumonia. 2. Chronic obstructive pulmonary disease. 3. Amyloidosis. PLAN: 1. Bed rest. 2. IV fluids. 3. IV antibiotics. 4. Updrafts. MMLAITH / LISAN: [id number] /
--- NOTE | 2018-08-25 22:21 | PN ---
PROGRESS NOTE CHIEF COMPLAINT: Recurrent or persistent pneumonia with COPD. HISTORY OF PRESENT ILLNESS: This gentleman is still quite dyspneic and he still has a chill. Chest is still very tight. He is not complaining of any chest pain or hemoptysis. He has had no vomiting. REVIEW OF SYSTEMS: Is otherwise normal and unchanged. PHYSICAL EXAMINATION: Head, ears, eyes, nose, mouth and throat are normal. Neck veins are not distended. Chest demonstrates his increased AP diameter with very poor breath sounds throughout. There are scattered rales and rhonchi and he has a congested cough with purulent sputum. Cardiac exam is normal. The abdomen is soft. Extremities are normal. IMPRESSION: 1. Recurrent lobar pneumonia. 2. Chronic obstructive pulmonary disease. 3. Amyloidosis. PLAN: Re-institute IV fluids, antibiotics and updrafts. MMODL / IJN: [id number] /
[2018-08-26] MEDS: methylPREDNISolone SOD SUCCI 125 MG/2 ML VIAL IV SCH ×5 (02:22→23:50)
[2018-08-26] MEDS: LEVOFLOXACIN 750MG-D5W PMX 750 MG in DEXTROSE/WATER 1 150ML.BAG IVPB SCH (02:22)
[2018-08-26] MEDS: SODIUM CHLORIDE 0.9% 1,000 ML IV SCH ×2 (03:30→15:23)
[2018-08-26] MEDS: PIPERACILLIN-TAZOBACTAM 3.375 GM in SODIUM CHLORIDE 0.9% 100 ML IVPB SCH ×3 (05:29→21:32)
[2018-08-26] MEDS: MAG HYDROX/AL HYDROX/SIMETH 30 ML CUP PO SCH ×3 (07:59→17:18)
[2018-08-26] MEDS: NAPROXEN 250 MG TAB PO SCH (07:59)
[2018-08-26] MEDS: ENOXAPARIN 40 MG/0.4 ML SYRINGE SQ SCH (07:59)
[2018-08-26] MEDS: VANCOMYCIN 1,250 MG in SODIUM CHLORIDE 0.9% 250 ML IVPB SCH ×3 (08:00→23:50)
[2018-08-26] MEDS: NICOTINE 14MG/24HR PATCH TRANSDERM SCH (08:00)
[2018-08-26] MEDS: IPRATROPIUM-ALBUTEROL 3 ML NEB INHALATION SCH ×4 (08:51→19:51)
[2018-08-26] MEDS: traMADol 50 MG TAB PO PRN (09:26)
[2018-08-26 09:32] LABS: African American GFR (CKD) >90 (>60 ml/min/1.73 sqM)
--- NOTE | 2018-08-26 13:43 | P.PN ---
Subjective Progress Note Date: 08/26/18 Principal diagnosis: Shortness of breath, cough, congestion, worsening right mid and lower lobe pneumonia This is a 73-year-old white male patient with history of advanced COPD, with baseline FEV1 of 31% of predicted, a chronic history of smoking, history of multiple comorbidities including chronic hepatitis C, essential hypertension, history of solitary lung nodule, and thoracic aortic aneurysm. Patient carries [id number] smoking history, was down to half a pack a day. On a combination of Advair and Spiriva and nebulized bronchodilators on as-needed basis, not on any home oxygen. Patient follows with Dr. Anderson in the pulmonary clinic, recently lost his , and has been smoking a bit more since then. On 08/17/2018 patient presented to the emergency department for evaluation of right-sided chest pain, and right arm pain with onset of symptoms on Saturday, accompanied by shortness of breath. He is also complaining of cough and increased chest congestion. Denied any history of fevers or chills, denied any diaphoresis, abdominal pain, nausea or vomiting. No lower extremity swelling. Chest x-ray was completed showing COPD with patchy consolidation in the right mid and lower lung. CT angiography of the chest with intravenous contrast showed no evidence of aortic aneurysm or dissection, no pulmonary embolism, heterogeneous airspace disease at the right lower lobe posteriorly concerning for pneumonia, and moderate centrilobular emphysema with spiculated lesion at the superior segment of the right lower lobe measuring 1 cm. Patient has a left lower lobe nodule/spiculated density that is being followed by Dr. Anderson in outpatient basis. Patient has a descending aortic aneurysm measuring 4.5 x 4.4 cm previously measuring 4.[address] thoracic aorta from 08/17/2018, aorta measures a maximum dimension of 4.6 cm anterior-posterior. No evidence of aortic dissection. Labs were positive for evidence of leukocytosis, white blood cell count was 18.9, hemoglobin of 14.8, serum sodium was 135, potassium 4.0, chloride was 97, normal renal profile with a BUN of 20 creatinine 0.95. Troponin was negative 1, proBNP was 85. Patient was placed on antibiotic coverage with Zosyn and vancomycin, oral prednisone, he was given a liter bolus of fluid in the emergency department. Lactic acid was within normal limits at 1.2. We're consulted for right middle and lower lobe pneumonia. The patient is seen today 08/19/2018 in follow-up on the regular medical floor. He is currently sitting up at the bedside. Awake and alert in no acute distres s. The right-sided chest discomfort and wheezing. He continues with a productive cough. Sputum cultures pending. He is maintaining good O2 saturations in the 90s on 3 L/m per nasal cannula. He's been afebrile. Blood cultures reveal no growth thus far. White count 18.2. Hemoglobin 13.1. Crea tinine 0.92. He remains on DuoNeb inhalations, Symbicort, Zosyn and Levaquin, Habitrol. On 08/20/2016 patient seen in follow-up on medical surgical floor. Is awake and alert, calm and comfortable, pulse ox is 96% on 3 L, no fever or chills, lung sounds revealed coarse breath sounds and some crackles at bilateral bases, chest x-ray revealed right perihilar and right lower lobe infiltrate persistence. We'll continue current medical treatment, urine culture revealed Santa albicans only so far. Blood cultures was negative. Cotninue with the current antibiotic coverage in the form of Zosyn and Levaquin, occasional cough with production of sputum, no hemoptysis. No chest pain. On 08/22/2018 patient seen in follow-up on medical surgical floor. Clinical patient continues to improve, no worsening shortness of breath, he is on 4 L of oxygen with a pulse ox of 92%, afebrile, hemodynamically stable, lung sounds are positive for a few scattered rhonchi, no significant wheezing, no fever or chills, blood and sputum cultures were negative with exception of Santa albicans in the sputum culture that could be oral luis contamination. Patient continues on Zosyn and Levaquin, no worsening cough or congestion, or hemoptysis, no chest tenderness. Today's follow-up chest x-ray has been reviewed, showing improvement in the appearance of right medial lung base, and persistence of perihilar infiltrate. On 08/25/2018 patient seen medical surgical floor, after patient was discharged home on 08/23/2018 patient developed right lower chest wall pain, increased shortness of breath, and patient came back to the hospital for reevaluation. He states he had a low-grade fever, he had a cough with production of brownish colored sputum, during last admission patient was treated with Zosyn and Levaquin, and sputum cultures did not show any growth. Patient's chest x-ray appearance of the right mid and right lower lobe pneumonia was improving, patient was clinically improving and patient was subsequently discharged home. Denies smoking when he returned home. He was taking his medications as prescribed according to him. He was also feeling weak. Chest x-ray was obtained in the emergency department showing worsening right perihilar and right lower lobe pneumonia patient was admitted for IV antibiotics in the form of Levaquin and Zosyn. Overnight he has been afebrile, he is currently on 4 L of oxygen with a pulse ox of 92%, hemodynamically stable, is on breathing treatments, lung sounds are positive for coarse his paternal crackles over right mid and lower lobe, he was given IV fluids, admission blood work was reviewed showing white blood cell count of 17.8, hemoglobin of 15.4, sodium was 134, this is 4.6, chloride is 96, his BUN was 27, creatinine is 0.74, troponin was negative 1, proBNP was 247. On 08/26/2018 patient seen in follow-up on medical surgical floor. He is awake and alert, in no acute distress, he states right lower chest pain has improved, although has not completely resolved. He is on supplemental oxygen currently on 4 L, his pulse ox is 90-91%, hemodynamically stable, afebrile, no cough, no hemoptysis. Lung Sounds reveal coarse is paternal crackles over right mid and lower lung. Antibiotic coverage includes Zosyn, Levaquin and vancomycin, bronchoscopy with BAL has been scheduled for tomorrow, and patient is agreeable to proceed. Objective - Vital Signs Vital signs: Vital Signs Temp 97.5 F L 08/26/18 07:00 Pulse 108 H 08/26/18 12:55 Resp 16 08/26/18 07:00 BP 121/71 08/26/18 07:00 Pulse Ox 90 L 08/26/18 07:00 Intake & Output 08/25/18 08/26/18 08/26/18 18:59 06:59 18:59 Intake Total 1999 10 Output Total 350 Balance 1999 -340 Weight 63.503 kg Intake: Intake, IV Titration 800 Amount Piperacillin-Tazobactam 3 100 .375 gm In Sodium Chloride 0.9% 100 ml @ 25 mls/hr IVPB Q8H JOHNIE Rx#: [id number] Sodium Chloride 0.9% 1, 700 000 ml @ 100 mls/hr IV . Q10H STA Rx#:[id number] Oral 1200 10 Output: Urine 350 Other: # Voids 1 2 - Exam GENERAL EXAM: Alert, pleasant, 73-year-old white male, currently on 4 L of oxygen with a pulse ox of 91% comfortable in no apparent distress. HEAD: Normocephalic/atraumatic. EYES: Normal reaction of pupils, equal size. Conjunctiva pink, sclera white. NOSE: Clear with pink turbinates. THROAT: No erythema or exudates. NECK: No masses, no JVD, no thyroid enlargement, no adenopathy. CHEST: No chest wall deformity. Symmetrical expansion. LUNGS: Equal air entry with coarse inspiratory crackles over right lower lobe and right middle lobe CVS: Regular rate and rhythm, normal S1 and S2, no gallops, no murmurs, no rubs ABDOMEN: Soft, nontender. No hepatosplenomegaly, normal bowel sounds, no guarding or rigidity. EXTREMITIES: No clubbing, no edema, no cyanosis, 2+ pulses and upper and lower extremities. MUSCULOSKELETAL: Muscle strength and tone normal. SPINE: No scoliosis or deformity SKIN: No rashes CENTRAL NERVOUS SYSTEM: Alert and oriented -3. No focal deficits, tone is normal in all 4 extremities. PSYCHIATRIC: Alert and oriented -3. Appropriate affect. Intact judgment and insight. - Labs CBC & Chem 7: 08/25/18 11:53 08/26/18 08:35 Labs: Microbiology - Last 24 Hours (Table) 08/24/18 20:04 Blood Culture - Preliminary Blood No Growth after 24 hours Assessment and Plan Plan: Assessment: #1. Acute hypoxemic respiratory failure related to worsening right middle and right lower lobe pneumonia, consider healthcare acquired pneumonia #2. Recent admission for acute right middle and right lower lobe pneumonia, and was treated with a combination of Zosyn and Levaquin, cultures did not show any growth, patient was showing radiographic and clinical improvement and was discharged home on 08/23/2018, after going home patient's started having increasing shortness of breath, and right lower pleuritic chest pain and hence came back to the hospital within 24 hours of discharge #3. History of advanced COPD, stage III, with baseline FEV1 of 31% of predicted, not on home oxygen #4. Chronic and ongoing nicotine dependence, patient carries [id number] smoking history #5. Hyperlipidemia #6. Chronic hepatitis C #7. Hypertension #8. Ascending thoracic aortic aneurysm, being followed in the outpatient basis, there was previously measuring 4.5 x 4.4 cm, thoracic CTA was completed showing dimension of 4.6 cm anterior-posterior at a maximum, with no evidence of aortic dissection #9. Chronic back pain #10. Solitary lung nodule in the left upper lobe previously measuring 8 mm in size, being followed in the outpatient basis by Dr. Anderson. Thoracic CTA chest also revealed a spiculated lesion at the superior segment of the right lower lobe measuring 1 cm #11. Psoriasis Plan: Continue current antibiotic coverage, obtain a sputum culture, continue nebulized bronchodilators and IV steroids, less right-sided chest pain on today's exam, patient is afebrile, hemodynamic stable, agreeable to proceed with bronchoscopy with BAL tomorrow to [facility]. Nothing by mouth after midnight. I performed a history & physical examination of the patient and discussed their management with my nurse practitioner, Ashtyn Grigsby. I reviewed the nurse practitioner's note and agree with the documented findings and plan of care. Lung sounds are positive for coarse right lower lobe crackles. The findings and the impression was discussed with the patient. I attest to the documentation by the nurse practitioner. Time with Patient: Less than 30
--- NOTE | 2018-08-26 20:04 | PN ---
PROGRESS NOTE DATE OF SERVICE: 08/26/2018 CHIEF COMPLAINT: Pneumonitis. HISTORY OF PRESENT ILLNESS: This gentleman is doing about the same. He is not really feeling any better. He is still very congested and coughing up a lot of sputum. His x-ray shows some deterioration. He is being considered for a bronchoscopy tomorrow. REVIEW OF SYSTEMS: He has not coughed up any blood. He has had no particular chest pain. He is still very short of breath and actually feels like it is a little bit worse. He has had no nausea, vomiting or diarrhea. PHYSICAL EXAMINATION: Chest demonstrates very poor breath sounds, particularly on the right, with fremitus and dullness to percussion in the upper posterior chest. There are scattered rales and rhonchi with increased AP diameter and very poor breath sounds throughout. Cardiac exam is normal. Abdomen is soft, nontender. Extremities are normal. IMPRESSION: Recurrent and worsening right hilar and lower lobe pneumonitis. PLAN: Continue with the current program. Bronchoscopy is a possibility tomorrow. MMODL / IJN: [id number] /
[2018-08-26] MEDS: KETOTIFEN 0.025% OPHTH DROPS 5 ML BTL BOTH EYES SCH (21:32)
[2018-08-26] MEDS: HYDROmorphone 0.5 MG/0.5 ML SYRINGE IVP PRN (23:59)
[2018-08-27] MEDS: SODIUM CHLORIDE 0.9% 1,000 ML IV SCH ×3 (00:50→22:10)
[2018-08-27] MEDS: LEVOFLOXACIN 750MG-D5W PMX 750 MG in DEXTROSE/WATER 1 150ML.BAG IVPB SCH (01:43)
[2018-08-27] MEDS: PIPERACILLIN-TAZOBACTAM 3.375 GM in SODIUM CHLORIDE 0.9% 100 ML IVPB SCH ×3 (05:14→22:01)
[2018-08-27] MEDS: methylPREDNISolone SOD SUCCI 125 MG/2 ML VIAL IV SCH ×4 (05:15→23:02)
[2018-08-27] MEDS: ENOXAPARIN 40 MG/0.4 ML SYRINGE SQ SCH (06:41)
[2018-08-27] MEDS ORDERED: VANCOMYCIN TROUGH DUE 1 EACH MISC MISCELLANE ONE (07:00)
[2018-08-27] MEDS: NICOTINE 14MG/24HR PATCH TRANSDERM SCH (09:30)
[2018-08-27] MEDS: MAG HYDROX/AL HYDROX/SIMETH 30 ML CUP PO SCH ×3 (09:30→17:56)
[2018-08-27] MEDS: NAPROXEN 250 MG TAB PO SCH (09:31)
[2018-08-27] MEDS: HYDROmorphone 0.5 MG/0.5 ML SYRINGE IVP PRN (09:36)
[2018-08-27] MEDS: VANCOMYCIN 1,250 MG in SODIUM CHLORIDE 0.9% 250 ML IVPB SCH ×2 (09:36→17:05)
[2018-08-27] MEDS: IPRATROPIUM-ALBUTEROL 3 ML NEB INHALATION SCH ×4 (10:24→21:24)
--- NOTE | 2018-08-27 11:33 | P.PN ---
Subjective Progress Note Date: 08/27/18 Principal diagnosis: Shortness of breath, cough, congestion, worsening right mid and lower lobe pneumonia This is a 73-year-old white male patient with history of advanced COPD, with baseline FEV1 of 31% of predicted, a chronic history of smoking, history of multiple comorbidities including chronic hepatitis C, essential hypertension, history of solitary lung nodule, and thoracic aortic aneurysm. Patient carries [id number] smoking history, was down to half a pack a day. On a combination of Advair and Spiriva and nebulized bronchodilators on as-needed basis, not on any home oxygen. Patient follows with Dr. Anderson in the pulmonary clinic, recently lost his , and has been smoking a bit more since then. On 08/17/2018 patient presented to the emergency department for evaluation of right-sided chest pain, and right arm pain with onset of symptoms on Saturday, accompanied by shortness of breath. He is also complaining of cough and increased chest congestion. Denied any history of fevers or chills, denied any diaphoresis, abdominal pain, nausea or vomiting. No lower extremity swelling. Chest x-ray was completed showing COPD with patchy consolidation in the right mid and lower lung. CT angiography of the chest with intravenous contrast showed no evidence of aortic aneurysm or dissection, no pulmonary embolism, heterogeneous airspace disease at the right lower lobe posteriorly concerning for pneumonia, and moderate centrilobular emphysema with spiculated lesion at the superior segment of the right lower lobe measuring 1 cm. Patient has a left lower lobe nodule/spiculated density that is being followed by Dr. Anderson in outpatient basis. Patient has a descending aortic aneurysm measuring 4.5 x 4.4 cm previously measuring 4.[address] thoracic aorta from 08/17/2018, aorta measures a maximum dimension of 4.6 cm anterior-posterior. No evidence of aortic dissection. Labs were positive for evidence of leukocytosis, white blood cell count was 18.9, hemoglobin of 14.8, serum sodium was 135, potassium 4.0, chloride was 97, normal renal profile with a BUN of 20 creatinine 0.95. Troponin was negative 1, proBNP was 85. Patient was placed on antibiotic coverage with Zosyn and vancomycin, oral prednisone, he was given a liter bolus of fluid in the emergency department. Lactic acid was within normal limits at 1.2. We're consulted for right middle and lower lobe pneumonia. The patient is seen today 08/19/2018 in follow-up on the regular medical floor. He is currently sitting up at the bedside. Awake and alert in no acute distres s. The right-sided chest discomfort and wheezing. He continues with a productive cough. Sputum cultures pending. He is maintaining good O2 saturations in the 90s on 3 L/m per nasal cannula. He's been afebrile. Blood cultures reveal no growth thus far. White count 18.2. Hemoglobin 13.1. Crea tinine 0.92. He remains on DuoNeb inhalations, Symbicort, Zosyn and Levaquin, Habitrol. On 08/20/2016 patient seen in follow-up on medical surgical floor. Is awake and alert, calm and comfortable, pulse ox is 96% on 3 L, no fever or chills, lung sounds revealed coarse breath sounds and some crackles at bilateral bases, chest x-ray revealed right perihilar and right lower lobe infiltrate persistence. We'll continue current medical treatment, urine culture revealed Santa albicans only so far. Blood cultures was negative. Cotninue with the current antibiotic coverage in the form of Zosyn and Levaquin, occasional cough with production of sputum, no hemoptysis. No chest pain. On 08/22/2018 patient seen in follow-up on medical surgical floor. Clinical patient continues to improve, no worsening shortness of breath, he is on 4 L of oxygen with a pulse ox of 92%, afebrile, hemodynamically stable, lung sounds are positive for a few scattered rhonchi, no significant wheezing, no fever or chills, blood and sputum cultures were negative with exception of Santa albicans in the sputum culture that could be oral luis contamination. Patient continues on Zosyn and Levaquin, no worsening cough or congestion, or hemoptysis, no chest tenderness. Today's follow-up chest x-ray has been reviewed, showing improvement in the appearance of right medial lung base, and persistence of perihilar infiltrate. On 08/25/2018 patient seen medical surgical floor, after patient was discharged home on 08/23/2018 patient developed right lower chest wall pain, increased shortness of breath, and patient came back to the hospital for reevaluation. He states he had a low-grade fever, he had a cough with production of brownish colored sputum, during last admission patient was treated with Zosyn and Levaquin, and sputum cultures did not show any growth. Patient's chest x-ray appearance of the right mid and right lower lobe pneumonia was improving, patient was clinically improving and patient was subsequently discharged home. Denies smoking when he returned home. He was taking his medications as prescribed according to him. He was also feeling weak. Chest x-ray was obtained in the emergency department showing worsening right perihilar and right lower lobe pneumonia patient was admitted for IV antibiotics in the form of Levaquin and Zosyn. Overnight he has been afebrile, he is currently on 4 L of oxygen with a pulse ox of 92%, hemodynamically stable, is on breathing treatments, lung sounds are positive for coarse his paternal crackles over right mid and lower lobe, he was given IV fluids, admission blood work was reviewed showing white blood cell count of 17.8, hemoglobin of 15.4, sodium was 134, this is 4.6, chloride is 96, his BUN was 27, creatinine is 0.74, troponin was negative 1, proBNP was 247. On 08/26/2018 patient seen in follow-up on medical surgical floor. He is awake and alert, in no acute distress, he states right lower chest pain has improved, although has not completely resolved. He is on supplemental oxygen currently on 4 L, his pulse ox is 90-91%, hemodynamically stable, afebrile, no cough, no hemoptysis. Lung Sounds reveal coarse is paternal crackles over right mid and lower lung. Antibiotic coverage includes Zosyn, Levaquin and vancomycin, bronchoscopy with BAL has been scheduled for tomorrow, and patient is agreeable to proceed. On 08/27/2018 patient seen in follow-up on medical surgical floor. Still have not right-sided pleuritic chest pain, dyspneic. No fever or chills, had some night sweats the night before. Currently on 4 L of oxygen and his pulse ox is fluctuating between 86-91%, afebrile. Occasional cough, but no sputum production, blood culture showed no growth at 48 hours, sputum culture showed rare budding yeast, final cultures pending. She is on a combination of Levaquin, Zosyn and vancomycin, and patient scheduled for bronchoscopy with BAL today by Dr. Anderson Objective - Vital Signs Vital signs: Vital Signs Temp 97.5 F L 08/27/18 11:24 Pulse 91 08/27/18 11:24 Resp 17 08/27/18 11:24 BP 130/78 08/27/18 11:24 Pulse Ox 86 L 08/27/18 11:24 Intake & Output 08/26/18 08/27/18 08/27/18 18:59 06:59 18:59 Intake Total 10 Balance 10 Intake: Oral 10 Other: # Voids 2 1 - Exam GENERAL EXAM: Alert, pleasant, 73-year-old white male, currently on 4 L of oxyg en with a pulse ox of 91% comfortable in no apparent distress. HEAD: Normocephalic/atraumatic. EYES: Normal reaction of pupils, equal size. Conjunctiva pink, sclera white. NOSE: Clear with pink turbinates. THROAT: No erythema or exudates. NECK: No masses, no JVD, no thyroid enlargement, no adenopathy. CHEST: No chest wall deformity. Symmetrical expansion. LUNGS: Equal air entry with coarse inspiratory crackles over right lower lobe and right middle lobe CVS: Regular rate and rhythm, normal S1 and S2, no gallops, no murmurs, no rubs ABDOMEN: Soft, nontender. No hepatosplenomegaly, normal bowel sounds, no guarding or rigidity. EXTREMITIES: No clubbing, no edema, no cyanosis, 2+ pulses and upper and lower extremities. MUSCULOSKELETAL: Muscle strength and tone normal. SPINE: No scoliosis or deformity SKIN: No rashes CENTRAL NERVOUS SYSTEM: Alert and oriented -3. No focal deficits, tone is normal in all 4 extremities. PSYCHIATRIC: Alert and oriented -3. Appropriate affect. Intact judgment and insight. - Labs CBC & Chem 7: 08/25/18 11:53 08/26/18 08:35 Labs: Microbiology - Last 24 Hours (Table) 08/24/18 20:04 Blood Culture - Preliminary Blood No Growth after 48 hours 08/26/18 12:06 Gram Stain - Preliminary Sputum Assessment and Plan Plan: Assessment: #1. Acute hypoxemic respiratory failure related to worsening right middle and right lower lobe pneumonia, consider healthcare acquired pneumonia #2. Recent admission for acute right middle and right lower lobe pneumonia, and was treated with a combination of Zosyn and Levaquin, cultures did not show any growth, patient was showing radiographic and clinical improvement and was discharged home on 08/23/2018, after going home patient's started having increasing shortness of breath, and right lower pleuritic chest pain and hence came back to the hospital within 24 hours of discharge #3. History of advanced COPD, stage III, with baseline FEV1 of 31% of predicted, not on home oxygen #4. Chronic and ongoing nicotine dependence, patient carries [id number] smoking history #5. Hyperlipidemia #6. Chronic hepatitis C #7. Hypertension #8. Ascending thoracic aortic aneurysm, being followed in the outpatient basis, there was previously measuring 4.5 x 4.4 cm, thoracic CTA was completed showing dimension of 4.6 cm anterior-posterior at a maximum, with no evidence of aortic dissection #9. Chronic back pain #10. Solitary lung nodule in the left upper lobe previously measuring 8 mm in size, being followed in the outpatient basis by Dr. Anderson. Thoracic CTA chest also revealed a spiculated lesion at the superior segment of the right lower lobe measuring 1 cm #11. Psoriasis Plan: Continue same antibiotics, breathing treatments and steroids, we'll proceed with bronchoscopy with BAL today. Still having right-sided pleuritic chest pain and dyspnea, we'll obtain follow-up chest x-ray in the morning. I performed a history & physical examination of the patient and discussed their management with my nurse practitioner, Ashtyn Grigsby. I reviewed the nurse practitioner's note and agree with the documented findings and plan of care. Lung sounds are positive for coarse right lower lobe crackles. The findings and the impression was discussed with the patient. I attest to the documentation by the nurse practitioner. Time with Patient: Less than 30
[2018-08-27] MEDS ORDERED: PROPOFOL 10 MG/ML 20 ML VIAL IV ONE (12:10)
[2018-08-27] MEDS ORDERED: IV FLUID CONTINUATION 500 ML IV ONE (12:12)
[2018-08-27] MEDS: traMADol 50 MG TAB PO PRN ×2 (15:20→23:03)
[2018-08-27] MEDS: LACTATED RINGERS 1,000 ML IV SCH (16:18)
--- NOTE | 2018-08-27 18:14 | PN ---
PROGRESS NOTE CHIEF COMPLAINT: Pneumonitis. HISTORY OF PRESENT ILLNESS: This gentleman is still very congested and quite short of breath. He also has a fair amount of discomfort in the back and chest. He is going for bronchoscopy today. PHYSICAL EXAM: Breath sounds are greatly diminished in the right lower lobe. There are occasional rales and occasional rhonchi. Cardiac exam is normal. Abdomen is soft. IMPRESSION: 1. Right perihilar and lower lobe pneumonitis. 2. Chronic obstructive pulmonary disease. 3. Arthritis. 4. Back pain. PLAN: Bronchoscopy today. MMODL / IJN: [id number] /
--- NOTE | 2018-08-27 19:59 | OP ---
OPERATIVE REPORT BRONCHOSCOPY AND BRONCHOALVEOLAR LAVAGE OF THE RIGHT MIDDLE LOBE AND RIGHT LOWER LOBE: PREOPERATIVE DIAGNOSIS: Extensive pneumonia involving the right middle lobe and right lower lobe. POSTOPERATIVE DIAGNOSIS: Extensive pneumonia involving the right middle lobe and the right lower lobe. ANESTHESIA USED: IV conscious sedation. INDICATION FOR THE PROCEDURE: Extensive pneumonia involving the right lung. PROCEDURE DESCRIPTION: The patient was prepared according to the bronchoscopy protocol. Oxygen was applied via nasal cannula. The patient was placed in a supine position. We monitored his oxygen saturation continuously. Blood pressure was intermittently monitored. Cardiac rhythm was continuously monitored. After adequate IV conscious sedation, the left naris was locally anesthetized by instilling Lidocaine in the left naris. Then the bronchoscope was advanced through the left naris down to the area of the vocal cords. There was minimal finding of polyps noted over the vocal cords. Pictures of the vocal cords were taken. Lidocaine was applied over the vocal cords, and the bronchoscope was advanced further down to the trachea. Thorough examination was done of the trachea, shelly, right upper lobe, right middle lobe, left upper lobe, lingula and left lower lobe. There was evidence of minimal purulent secretions in different areas of the lungs, but mostly in the right middle lobe and right lower lobe. Lavage of the right middle lobe and right lower lobe was done. Fluid was sent for different diagnostic studies. No evidence of any endobronchial tumors in any of the areas of the lung. Lavage fluid was sent for different diagnostic studies, including cultures and for cytology. The procedure was well tolerated; no evidence of any immediate complication. MMODL / IJN: [id number] /
[2018-08-27] MEDS: KETOTIFEN 0.025% OPHTH DROPS 5 ML BTL BOTH EYES SCH (22:09)
[2018-08-28] MEDS: VANCOMYCIN 1,250 MG in SODIUM CHLORIDE 0.9% 250 ML IVPB SCH ×3 (01:20→16:02)
[2018-08-28] MEDS: LEVOFLOXACIN 750MG-D5W PMX 750 MG in DEXTROSE/WATER 1 150ML.BAG IVPB SCH (04:05)
[2018-08-28] MEDS: methylPREDNISolone SOD SUCCI 125 MG/2 ML VIAL IV SCH ×3 (06:15→17:52)
[2018-08-28] MEDS: PIPERACILLIN-TAZOBACTAM 3.375 GM in SODIUM CHLORIDE 0.9% 100 ML IVPB SCH ×3 (06:15→20:54)
[2018-08-28] MEDS: SODIUM CHLORIDE 0.9% 1,000 ML IV SCH ×2 (06:16→16:06)
[2018-08-28] MEDS: LACTATED RINGERS 1,000 ML IV SCH (07:08)
[2018-08-28] MEDS: IPRATROPIUM-ALBUTEROL 3 ML NEB INHALATION SCH ×4 (07:35→20:09)
[2018-08-28 08:12] LABS: HCT 37.3 % (39.0-53.0); HGB 12.1 gm/dL (13.0-17.5); MCH 29.2 pg (25.0-35.0); MCHC 32.6 g/dL (31.0-37.0); MCV 89.5 fL (80.0-100.0); Platelet Count 389 k/uL (150-450); RBC 4.17 m/uL (4.30-5.90); RDW 14.3 % (11.5-15.5); WBC 14.1 k/uL (3.8-10.6)
[2018-08-28] MEDS: ENOXAPARIN 40 MG/0.4 ML SYRINGE SQ SCH (08:13)
[2018-08-28] MEDS: NAPROXEN 250 MG TAB PO SCH (08:13)
[2018-08-28] MEDS: MAG HYDROX/AL HYDROX/SIMETH 30 ML CUP PO SCH ×3 (08:13→17:53)
[2018-08-28] MEDS: NICOTINE 14MG/24HR PATCH TRANSDERM SCH (08:15)
[2018-08-28 08:29] LABS: African American GFR (CKD) >90 (>60 ml/min/1.73 sqM); Anion Gap 7 mmol/L; Blood Urea Nitrogen 26 mg/dL (9-20); Calcium 8.4 mg/dL (8.4-10.2); Carbon Dioxide 30 mmol/L (22-30); Chloride 99 mmol/L (98-107); Glucose 115 mg/dL (74-99); Potassium 4.3 mmol/L (3.5-5.1); Sodium 136 mmol/L (137-145)
--- NOTE | 2018-08-28 08:54 | XR ---
EXAMINATION TYPE: XR chest 2V DATE OF EXAM: 08/28/2018 COMPARISON: 08/25/2018 INDICATION: Pneumonia TECHNIQUE: Frontal and lateral views of the chest are obtained. FINDINGS: The heart size is normal. The pulmonary vasculature is normal. There is consolidation to the right perihilar region. This is improving from prior study. However, th ere is a linear opacity with lucency superior which could suggest an air-fluid level. Early cavitatio n in the right perihilar region is not excluded. There is blunting of bilateral costophrenic angles. Small left pleural effusion may have developed. Improving infiltrate is at the right base. Emphysemat ous changes are in the lung apices. IMPRESSION: 1. Improving right perihilar and lower lobe infiltrates. 2. New left pleural effusion and/or atelectasis. 3. Early cavitation within the posterior right perihilar consolidation may be present.
--- NOTE | 2018-08-28 11:34 | P.PN ---
Subjective Progress Note Date: 08/28/18 Principal diagnosis: Shortness of breath, cough, congestion, worsening right mid and lower lobe pneumonia This is a 73-year-old white male patient with history of advanced COPD, with baseline FEV1 of 31% of predicted, a chronic history of smoking, history of multiple comorbidities including chronic hepatitis C, essential hypertension, history of solitary lung nodule, and thoracic aortic aneurysm. Patient carries [id number] smoking history, was down to half a pack a day. On a combination of Advair and Spiriva and nebulized bronchodilators on as-needed basis, not on any home oxygen. Patient follows with Dr. Anderson in the pulmonary clinic, recently lost his , and has been smoking a bit more since then. On 08/17/2018 patient presented to the emergency department for evaluation of right-sided chest pain, and right arm pain with onset of symptoms on Saturday, accompanied by shortness of breath. He is also complaining of cough and increased chest congestion. Denied any history of fevers or chills, denied any diaphoresis, abdominal pain, nausea or vomiting. No lower extremity swelling. Chest x-ray was completed showing COPD with patchy consolidation in the right mid and lower lung. CT angiography of the chest with intravenous contrast showed no evidence of aortic aneurysm or dissection, no pulmonary embolism, heterogeneous airspace disease at the right lower lobe posteriorly concerning for pneumonia, and moderate centrilobular emphysema with spiculated lesion at the superior segment of the right lower lobe measuring 1 cm. Patient has a left lower lobe nodule/spiculated density that is being followed by Dr. Anderson in outpatient basis. Patient has a descending aortic aneurysm measuring 4.5 x 4.4 cm previously measuring 4.[address] thoracic aorta from 08/17/2018, aorta measures a maximum dimension of 4.6 cm anterior-posterior. No evidence of aortic dissection. Labs were positive for evidence of leukocytosis, white blood cell count was 18.9, hemoglobin of 14.8, serum sodium was 135, potassium 4.0, chloride was 97, normal renal profile with a BUN of 20 creatinine 0.95. Troponin was negative 1, proBNP was 85. Patient was placed on antibiotic coverage with Zosyn and vancomycin, oral prednisone, he was given a liter bolus of fluid in the emergency department. Lactic acid was within normal limits at 1.2. We're consulted for right middle and lower lobe pneumonia. The patient is seen today 08/19/2018 in follow-up on the regular medical floor. He is currently sitting up at the bedside. Awake and alert in no acute distres s. The right-sided chest discomfort and wheezing. He continues with a productive cough. Sputum cultures pending. He is maintaining good O2 saturations in the 90s on 3 L/m per nasal cannula. He's been afebrile. Blood cultures reveal no growth thus far. White count 18.2. Hemoglobin 13.1. Crea tinine 0.92. He remains on DuoNeb inhalations, Symbicort, Zosyn and Levaquin, Habitrol. On 08/20/2016 patient seen in follow-up on medical surgical floor. Is awake and alert, calm and comfortable, pulse ox is 96% on 3 L, no fever or chills, lung sounds revealed coarse breath sounds and some crackles at bilateral bases, chest x-ray revealed right perihilar and right lower lobe infiltrate persistence. We'll continue current medical treatment, urine culture revealed Santa albicans only so far. Blood cultures was negative. Cotninue with the current antibiotic coverage in the form of Zosyn and Levaquin, occasional cough with production of sputum, no hemoptysis. No chest pain. On 08/22/2018 patient seen in follow-up on medical surgical floor. Clinical patient continues to improve, no worsening shortness of breath, he is on 4 L of oxygen with a pulse ox of 92%, afebrile, hemodynamically stable, lung sounds are positive for a few scattered rhonchi, no significant wheezing, no fever or chills, blood and sputum cultures were negative with exception of Santa albicans in the sputum culture that could be oral luis contamination. Patient continues on Zosyn and Levaquin, no worsening cough or congestion, or hemoptysis, no chest tenderness. Today's follow-up chest x-ray has been reviewed, showing improvement in the appearance of right medial lung base, and persistence of perihilar infiltrate. On 08/25/2018 patient seen medical surgical floor, after patient was discharged home on 08/23/2018 patient developed right lower chest wall pain, increased shortness of breath, and patient came back to the hospital for reevaluation. He states he had a low-grade fever, he had a cough with production of brownish colored sputum, during last admission patient was treated with Zosyn and Levaquin, and sputum cultures did not show any growth. Patient's chest x-ray appearance of the right mid and right lower lobe pneumonia was improving, patient was clinically improving and patient was subsequently discharged home. Denies smoking when he returned home. He was taking his medications as prescribed according to him. He was also feeling weak. Chest x-ray was obtained in the emergency department showing worsening right perihilar and right lower lobe pneumonia patient was admitted for IV antibiotics in the form of Levaquin and Zosyn. Overnight he has been afebrile, he is currently on 4 L of oxygen with a pulse ox of 92%, hemodynamically stable, is on breathing treatments, lung sounds are positive for coarse his paternal crackles over right mid and lower lobe, he was given IV fluids, admission blood work was reviewed showing white blood cell count of 17.8, hemoglobin of 15.4, sodium was 134, this is 4.6, chloride is 96, his BUN was 27, creatinine is 0.74, troponin was negative 1, proBNP was 247. On 08/26/2018 patient seen in follow-up on medical surgical floor. He is awake and alert, in no acute distress, he states right lower chest pain has improved, although has not completely resolved. He is on supplemental oxygen currently on 4 L, his pulse ox is 90-91%, hemodynamically stable, afebrile, no cough, no hemoptysis. Lung Sounds reveal coarse is paternal crackles over right mid and lower lung. Antibiotic coverage includes Zosyn, Levaquin and vancomycin, bronchoscopy with BAL has been scheduled for tomorrow, and patient is agreeable to proceed. On 08/27/2018 patient seen in follow-up on medical surgical floor. Still have not right-sided pleuritic chest pain, dyspneic. No fever or chills, had some night sweats the night before. Currently on 4 L of oxygen and his pulse ox is fluctuating between 86-91%, afebrile. Occasional cough, but no sputum production, blood culture showed no growth at 48 hours, sputum culture showed rare budding yeast, final cultures pending. She is on a combination of Levaquin, Zosyn and vancomycin, and patient scheduled for bronchoscopy with BAL today by Dr. Anderson On 08/28/2018 patient seen in follow-up on medical surgical floor. He states his breathing easier, right-sided chest pain has improved, he is currently on 4 L of oxygen with a pulse ox of 92%, today's chest x-ray was reviewed, showing early cavitation in the posterior right perihilar consolidation, otherwise improving right perihilar and lower lobe pneumonia. Bronchial wash cultures are pending, no fever or chills, patient is covered with a combination of Levaquin and Zosyn and vancomycin. Occasional cough, with no significant phlegm produc tion. White count is trending down, down to 14.1 on today's labs, hemoglobin is 12.1, sodium is 136, potassium is 4.3, chloride is 99, CO2 is 30, B1 is 26 and creatinine 0.62. Objective - Vital Signs Vital signs: Vital Signs Temp 97.6 F 08/28/18 07:00 Pulse 88 08/28/18 07:46 Resp 16 08/28/18 07:00 BP 166/77 08/28/18 07:00 Pulse Ox 92 L 08/28/18 07:00 Intake & Output 08/27/18 08/28/18 08/28/18 18:59 06:59 18:59 Intake Total 400 240 Output Total 600 Balance -200 240 Intake: IV 400 Oral 240 Output: Urine 600 - Exam GENERAL EXAM: Alert, pleasant, 73-year-old white male, currently on 4 L of oxygen with a pulse ox of 92% comfortable in no apparent distress. HEAD: Normocephalic/atraumatic. EYES: Normal reaction of pupils, equal size. Conjunctiva pink, sclera white. NOSE: Clear with pink turbinates. THROAT: No erythema or exudates. NECK: No masses, no JVD, no thyroid enlargement, no adenopathy. CHEST: No chest wall deformity. Symmetrical expansion. LUNGS: Equal air entry with coarse inspiratory crackles over right lower lobe and right middle lobe CVS: Regular rate and rhythm, normal S1 and S2, no gallops, no murmurs, no rubs ABDOMEN: Soft, nontender. No hepatosplenomegaly, normal bowel sounds, no guarding or rigidity. EXTREMITIES: No clubbing, no edema, no cyanosis, 2+ pulses and upper and lower extremities. MUSCULOSKELETAL: Muscle strength and tone normal. SPINE: No scoliosis or deformity SKIN: No rashes CENTRAL NERVOUS SYSTEM: Alert and oriented -3. No focal deficits, tone is normal in all 4 extremities. PSYCHIATRIC: Alert and oriented -3. Appropriate affect. Intact judgment and insight. - Labs CBC & Chem 7: 08/28/18 07:13 08/28/18 07:13 Labs: Abnormal Lab Results - Last 24 Hours (Table) 08/28/18 08/28/18 Range/Units 07:13 07:13 WBC 14.1 H (3.8-10.6) k/uL RBC 4.17 L (4.30-5.90) m/uL Hgb 12.1 L (13.0-17.5) gm/dL Hct 37.3 L (39.0-53.0) % Sodium 136 L (137-145) mmol/L BUN 26 H (9-20) mg/dL Creatinine 0.62 L (0.66-1.25) mg/dL Glucose 115 H (74-99) mg/dL Microbiology - Last 24 Hours (Table) 08/26/18 12:06 Gram Stain - Preliminary Sputum Sputum Culture - Preliminary Presumptive Staph aureus Santa albicans 08/27/18 12:40 Acid Fast Bacilli Smear - Final Bronchial Washings - Right Acid Fast Bacilli Culture - Preliminary 08/27/18 12:40 Gram Stain - Preliminary Bronchial Washings - Right Bronchial Washings Culture - Preliminary 08/24/18 20:04 Blood Culture - Preliminary Blood No Growth after 72 hours 08/27/18 12:40 Fungal Culture - Preliminary Bronchial Washings - Right Assessment and Plan Plan: Assessment: #1. Acute hypoxemic respiratory failure related to worsening right middle and right lower lobe pneumonia, consider healthcare acquired pneumonia #2. Recent admission for acute right middle and right lower lobe pneumonia, and was treated with a combination of Zosyn and Levaquin, cultures did not show any growth, patient was showing radiographic and clinical improvement and was discharged home on 08/23/2018, after going home patient's started having increasing shortness of breath, and right lower pleuritic chest pain and hence came back to the hospital within 24 hours of discharge #3. History of advanced COPD, stage III, with baseline FEV1 of 31% of predicted, not on home oxygen #4. Chronic and ongoing nicotine dependence, patient carries [id number] smoking history #5. Hyperlipidemia #6. Chronic hepatitis C #7. Hypertension #8. Ascending thoracic aortic aneurysm, being followed in the outpatient basis, there was previously measuring 4.5 x 4.4 cm, thoracic CTA was completed showing dimension of 4.6 cm anterior-posterior at a maximum, with no evidence of aortic dissection #9. Chronic back pain #10. Solitary lung nodule in the left upper lobe previously measuring 8 mm in size, being followed in the outpatient basis by Dr. Anderson. Thoracic CTA chest also revealed a spiculated lesion at the superior segment of the right lower lobe measuring 1 cm #11. Psoriasis Plan: This follow-up chest x-ray has been reviewed, showing early cavitation in the posterior right perihilar consolidation, otherwise improving right-sided pneumonia. Clinically patient is improving, breathing easier, pleuritic chest pain is subsiding. White blood cell count is trending down, continue with same antibiotic coverage will await the results of the bronchus cultures. Continue with IV steroids and nebulized bronchodilators. Increase activity as tolerated. I performed a history & physical examination of the patient and discussed their management with my nurse practitioner, Ashtyn Grigsby. I reviewed the nurse practitioner's note and agree with the documented findings and plan of care. Lung sounds are positive for coarse right lower lobe crackles. The findings and the impression was discussed with the patient. I attest to the documentation by the nurse practitioner. Time with Patient: Less than 30
--- NOTE | 2018-08-28 19:49 | PN ---
PROGRESS NOTE CHIEF COMPLAINT: Right-sided bronchopneumonia. HISTORY OF PRESENT ILLNESS: This gentleman is doing fairly well. He continues to be congested and short of breath. Bronchoscopy failed to reveal any bronchial lesions or obstruction. PHYSICAL EXAMINATION: He is afebrile. His white count is coming down. Head, ears, eyes, nose, mouth and throat are normal. The chest still demonstrates very poor breath sounds with wheezing and rhonchi bilaterally. Cardiac exam is normal. The abdomen is flat and soft. Extremities are normal. IMPRESSION: 1. Right perihilar and right lower lobe pneumonitis. 2. Chronic obstructive pulmonary disease. PLAN: Continue with updrafts, IV fluids and IV antibiotics until he is stable enough to be discharged once again to outpatient care. MMODL / IJN: [id number] /
[2018-08-28] MEDS: KETOTIFEN 0.025% OPHTH DROPS 5 ML BTL BOTH EYES SCH (20:50)
[2018-08-28] MEDS: traMADol 50 MG TAB PO PRN (20:57)
[2018-08-29] MEDS: VANCOMYCIN 1,250 MG in SODIUM CHLORIDE 0.9% 250 ML IVPB SCH ×3 (00:54→17:32)
[2018-08-29] MEDS: guaiFENesin-Coden 100-10MG/5ML 10 ML CUP PO PRN ×3 (00:54→23:20)
[2018-08-29] MEDS: methylPREDNISolone SOD SUCCI 125 MG/2 ML VIAL IV SCH ×5 (00:55→23:20)
[2018-08-29] MEDS: LEVOFLOXACIN 750MG-D5W PMX 750 MG in DEXTROSE/WATER 1 150ML.BAG IVPB SCH (00:58)
[2018-08-29] MEDS: SODIUM CHLORIDE 0.9% 1,000 ML IV SCH ×3 (02:27→20:02)
[2018-08-29] MEDS: PIPERACILLIN-TAZOBACTAM 3.375 GM in SODIUM CHLORIDE 0.9% 100 ML IVPB SCH ×3 (05:26→21:15)
[2018-08-29] MEDS: ENOXAPARIN 40 MG/0.4 ML SYRINGE SQ SCH (07:51)
[2018-08-29] MEDS: HYDROcodone/APAP 5-325MG 1 EACH TAB PO PRN ×2 (07:51→20:04)
[2018-08-29] MEDS: NAPROXEN 250 MG TAB PO SCH (07:51)
[2018-08-29] MEDS: NICOTINE 14MG/24HR PATCH TRANSDERM SCH (07:52)
[2018-08-29] MEDS: MAG HYDROX/AL HYDROX/SIMETH 30 ML CUP PO SCH ×3 (07:52→17:29)
[2018-08-29] MEDS: IPRATROPIUM-ALBUTEROL 3 ML NEB INHALATION SCH ×4 (08:04→20:20)
--- NOTE | 2018-08-29 09:54 | XR ---
EXAMINATION TYPE: XR chest 1V portable DATE OF EXAM: 08/29/2018 CLINICAL HISTORY: Difficulty breathing and pneumonia progress study. TECHNIQUE: Single AP portable upright view of the chest is obtained. COMPARISON: Chest x-ray from one day earlier and older studies. FINDINGS: Osseous structures remain demineralized. There is chronic parenchymal changes with persist ent left basilar opacity. There is persistent right hilar opacity extending towards base. Cardiac ilana houette size is stable and within normal limits with atherosclerotic and ectatic thoracic aorta. IMPRESSION: Chronic parenchymal changes with persistent right mid to lower lung edema and/or infiltra te and persistent small bilateral pleural effusions with associated bibasilar atelectasis and/or infi ltrate. No significant change from one day earlier.
--- NOTE | 2018-08-29 10:17 | P.PN ---
Subjective Progress Note Date: 08/29/18 Principal diagnosis: Shortness of breath, cough, congestion, worsening right mid and lower lobe pneumonia This is a 73-year-old white male patient with history of advanced COPD, with baseline FEV1 of 31% of predicted, a chronic history of smoking, history of multiple comorbidities including chronic hepatitis C, essential hypertension, history of solitary lung nodule, and thoracic aortic aneurysm. Patient carries [id number] smoking history, was down to half a pack a day. On a combination of Advair and Spiriva and nebulized bronchodilators on as-needed basis, not on any home oxygen. Patient follows with Dr. Anderson in the pulmonary clinic, recently lost his , and has been smoking a bit more since then. On 08/17/2018 patient presented to the emergency department for evaluation of right-sided chest pain, and right arm pain with onset of symptoms on Saturday, accompanied by shortness of breath. He is also complaining of cough and increased chest congestion. Denied any history of fevers or chills, denied any diaphoresis, abdominal pain, nausea or vomiting. No lower extremity swelling. Chest x-ray was completed showing COPD with patchy consolidation in the right mid and lower lung. CT angiography of the chest with intravenous contrast showed no evidence of aortic aneurysm or dissection, no pulmonary embolism, heterogeneous airspace disease at the right lower lobe posteriorly concerning for pneumonia, and moderate centrilobular emphysema with spiculated lesion at the superior segment of the right lower lobe measuring 1 cm. Patient has a left lower lobe nodule/spiculated density that is being followed by Dr. Anderson in outpatient basis. Patient has a descending aortic aneurysm measuring 4.5 x 4.4 cm previously measuring 4.[address] thoracic aorta from 08/17/2018, aorta measures a maximum dimension of 4.6 cm anterior-posterior. No evidence of aortic dissection. Labs were positive for evidence of leukocytosis, white blood cell count was 18.9, hemoglobin of 14.8, serum sodium was 135, potassium 4.0, chloride was 97, normal renal profile with a BUN of 20 creatinine 0.95. Troponin was negative 1, proBNP was 85. Patient was placed on antibiotic coverage with Zosyn and vancomycin, oral prednisone, he was given a liter bolus of fluid in the emergency department. Lactic acid was within normal limits at 1.2. We're consulted for right middle and lower lobe pneumonia. The patient is seen today 08/19/2018 in follow-up on the regular medical floor. He is currently sitting up at the bedside. Awake and alert in no acute distres s. The right-sided chest discomfort and wheezing. He continues with a productive cough. Sputum cultures pending. He is maintaining good O2 saturations in the 90s on 3 L/m per nasal cannula. He's been afebrile. Blood cultures reveal no growth thus far. White count 18.2. Hemoglobin 13.1. Crea tinine 0.92. He remains on DuoNeb inhalations, Symbicort, Zosyn and Levaquin, Habitrol. On 08/20/2016 patient seen in follow-up on medical surgical floor. Is awake and alert, calm and comfortable, pulse ox is 96% on 3 L, no fever or chills, lung sounds revealed coarse breath sounds and some crackles at bilateral bases, chest x-ray revealed right perihilar and right lower lobe infiltrate persistence. We'll continue current medical treatment, urine culture revealed Santa albicans only so far. Blood cultures was negative. Cotninue with the current antibiotic coverage in the form of Zosyn and Levaquin, occasional cough with production of sputum, no hemoptysis. No chest pain. On 08/22/2018 patient seen in follow-up on medical surgical floor. Clinical patient continues to improve, no worsening shortness of breath, he is on 4 L of oxygen with a pulse ox of 92%, afebrile, hemodynamically stable, lung sounds are positive for a few scattered rhonchi, no significant wheezing, no fever or chills, blood and sputum cultures were negative with exception of Santa albicans in the sputum culture that could be oral luis contamination. Patient continues on Zosyn and Levaquin, no worsening cough or congestion, or hemoptysis, no chest tenderness. Today's follow-up chest x-ray has been reviewed, showing improvement in the appearance of right medial lung base, and persistence of perihilar infiltrate. On 08/25/2018 patient seen medical surgical floor, after patient was discharged home on 08/23/2018 patient developed right lower chest wall pain, increased shortness of breath, and patient came back to the hospital for reevaluation. He states he had a low-grade fever, he had a cough with production of brownish colored sputum, during last admission patient was treated with Zosyn and Levaquin, and sputum cultures did not show any growth. Patient's chest x-ray appearance of the right mid and right lower lobe pneumonia was improving, patient was clinically improving and patient was subsequently discharged home. Denies smoking when he returned home. He was taking his medications as prescribed according to him. He was also feeling weak. Chest x-ray was obtained in the emergency department showing worsening right perihilar and right lower lobe pneumonia patient was admitted for IV antibiotics in the form of Levaquin and Zosyn. Overnight he has been afebrile, he is currently on 4 L of oxygen with a pulse ox of 92%, hemodynamically stable, is on breathing treatments, lung sounds are positive for coarse his paternal crackles over right mid and lower lobe, he was given IV fluids, admission blood work was reviewed showing white blood cell count of 17.8, hemoglobin of 15.4, sodium was 134, this is 4.6, chloride is 96, his BUN was 27, creatinine is 0.74, troponin was negative 1, proBNP was 247. On 08/26/2018 patient seen in follow-up on medical surgical floor. He is awake and alert, in no acute distress, he states right lower chest pain has improved, although has not completely resolved. He is on supplemental oxygen currently on 4 L, his pulse ox is 90-91%, hemodynamically stable, afebrile, no cough, no hemoptysis. Lung Sounds reveal coarse is paternal crackles over right mid and lower lung. Antibiotic coverage includes Zosyn, Levaquin and vancomycin, bronchoscopy with BAL has been scheduled for tomorrow, and patient is agreeable to proceed. On 08/27/2018 patient seen in follow-up on medical surgical floor. Still have not right-sided pleuritic chest pain, dyspneic. No fever or chills, had some night sweats the night before. Currently on 4 L of oxygen and his pulse ox is fluctuating between 86-91%, afebrile. Occasional cough, but no sputum production, blood culture showed no growth at 48 hours, sputum culture showed rare budding yeast, final cultures pending. She is on a combination of Levaquin, Zosyn and vancomycin, and patient scheduled for bronchoscopy with BAL today by Dr. Anderson On 08/28/2018 patient seen in follow-up on medical surgical floor. He states his breathing easier, right-sided chest pain has improved, he is currently on 4 L of oxygen with a pulse ox of 92%, today's chest x-ray was reviewed, showing early cavitation in the posterior right perihilar consolidation, otherwise improving right perihilar and lower lobe pneumonia. Bronchial wash cultures are pending, no fever or chills, patient is covered with a combination of Levaquin and Zosyn and vancomycin. Occasional cough, with no significant phlegm produc tion. White count is trending down, down to 14.1 on today's labs, hemoglobin is 12.1, sodium is 136, potassium is 4.3, chloride is 99, CO2 is 30, B1 is 26 and creatinine 0.62. On 08/29/2018 patient seen in follow-up on medical surgical floor. Overnight he had some coughing spells, not bringing up much sputum. Still has the right- sided chest discomfort with coughing, but seems to be improved since admission. BAL cultures are positive for presumptive staph aureus, urine cultures are positive for MRSA, and patient is covered with vancomycin, in addition to Levaquin and Zosyn. Today's chest x-ray shows persistent right mid to lower lung edema/infiltrate and persistent small bilateral pleural effusions with associated atelectasis and/or infiltrate. Afebrile, but feels warm to touch. Lung sounds are positive for coarse crackles over right lung, less prominent crackles on the left. Cytology of the BAL was negative Objective - Vital Signs Vital signs: Vital Signs Temp 98.3 F 08/29/18 07:07 Pulse 78 08/29/18 08:15 Resp 15 08/29/18 07:07 BP 157/78 08/29/18 07:07 Pulse Ox 95 08/29/18 07:07 Intake & Output 08/28/18 08/29/18 08/29/18 18:59 06:59 18:59 Intake Total 720 240 Output Total 600 320 Balance 720 -600 -80 Intake: Oral 720 240 Output: Urine 600 320 Other: # Voids 2 1 - Exam GENERAL EXAM: Alert, pleasant, 73-year-old white male, currently on 4 L of oxygen with a pulse ox of 95% comfortable in no apparent distress. HEAD: Normocephalic/atraumatic. EYES: Normal reaction of pupils, equal size. Conjunctiva pink, sclera white. NOSE: Clear with pink turbinates. THROAT: No erythema or exudates. NECK: No masses, no JVD, no thyroid enlargement, no adenopathy. CHEST: No chest wall deformity. Symmetrical expansion. LUNGS: Equal air entry with coarse inspiratory crackles over right lower lobe and right middle lobe CVS: Regular rate and rhythm, normal S1 and S2, no gallops, no murmurs, no rubs ABDOMEN: Soft, nontender. No hepatosplenomegaly, normal bowel sounds, no guarding or rigidity. EXTREMITIES: No clubbing, no edema, no cyanosis, 2+ pulses and upper and lower extremities. MUSCULOSKELETAL: Muscle strength and tone normal. SPINE: No scoliosis or deformity SKIN: No rashes CENTRAL NERVOUS SYSTEM: Alert and oriented -3. No focal deficits, tone is normal in all 4 extremities. PSYCHIATRIC: Alert and oriented -3. Appropriate affect. Intact judgment and insight. - Labs CBC & Chem 7: 08/28/18 07:13 08/28/18 07:13 Labs: Microbiology - Last 24 Hours (Table) 08/26/18 12:06 Gram Stain - Final Sputum Sputum Culture - Final Methicillin resist S. aureus Santa albicans 08/24/18 20:04 Blood Culture - Preliminary Blood No Growth after 96 hours 08/27/18 12:40 Gram Stain - Preliminary Bronchial Washings - Right Bronchial Washings Culture - Preliminary Presumptive Staph aureus Santa albicans Assessment and Plan Plan: Assessment: #1. Acute hypoxemic respiratory failure related to worsening right middle and right lower lobe pneumonia, healthcare acquired pneumonia, status post bronchoscopy with BAL, BAL and sputum cultures positive for MRSA #2. Recent admission for acute right middle and right lower lobe pneumonia, and was treated with a combination of Zosyn and Levaquin, cultures did not show any growth, patient was showing radiographic and clinical improvement and was discharged home on 08/23/2018, after going home patient's started having increasing shortness of breath, and right lower pleuritic chest pain and hence came back to the hospital within 24 hours of discharge #3. History of advanced COPD, stage III, with baseline FEV1 of 31% of predicted, not on home oxygen #4. Chronic and ongoing nicotine dependence, patient carries [id number] smoking history #5. Hyperlipidemia #6. Chronic hepatitis C #7. Hypertension #8. Ascending thoracic aortic aneurysm, being followed in the outpatient basis, there was previously measuring 4.5 x 4.4 cm, thoracic CTA was completed showing dimension of 4.6 cm anterior-posterior at a maximum, with no evidence of aortic dissection #9. Chronic back pain #10. Solitary lung nodule in the left upper lobe previously measuring 8 mm in size, being followed in the outpatient basis by Dr. Anderson. Thoracic CTA chest also revealed a spiculated lesion at the superior segment of the right lower lobe measuring 1 cm #11. Psoriasis Plan: Continue current antibiotic coverage, sputum and BAL cultures were post her son, patient has already been covered with vancomycin, we'll continue Levaquin and Zosyn as well, today's chest x-ray shows similar persistent right middle and right lower lobe infiltrates, no pleural effusions. No significant change from yesterday. Patient is afebrile, no worsening shortness of breath, we'll continue to follow I performed a history & physical examination of the patient and discussed their management with my nurse practitioner, Ashtyn Grigsby. I reviewed the nurse practitioner's note and agree with the documented findings and plan of care. Lung sounds are positive for coarse right lower lobe crackles. The findings and the impression was discussed with the patient. I attest to the documentation by the nurse practitioner. Time with Patient: Less than 30
--- NOTE | 2018-08-29 11:23 | PN ---
PROGRESS NOTE CHIEF COMPLAINT: Right lower lobe pneumonitis. HISTORY OF PRESENT ILLNESS: This gentleman is doing just about the same. He has grown out MRSA now. He has not been febrile. He was doing a great deal of coughing last night, it was dry and he did not bring up any significant amount of sputum. There was no blood. PHYSICAL EXAM: He still has decreased breath sounds with component and rales at the right base. Cardiac exam is normal. Abdomen is soft, nontender. Extremities are normal. IMPRESSION: 1. Right lower lobe pneumonitis. 2. Methicillin-resistant Staphylococcus aureus. 3. Chronic obstructive pulmonary disease. PLAN: Infectious Disease consult and he will be started on vancomycin. MMODL / IJN: [id number] /
[2018-08-29] MEDS: KETOTIFEN 0.025% OPHTH DROPS 5 ML BTL BOTH EYES SCH (20:02)
[2018-08-29] MEDS: LEVOFLOXACIN 750 MG TAB PO SCH (20:02)
--- NOTE | 2018-08-29 23:31 | P.CONS ---
History of Present Illness - Reason for Consult Consult date: 08/29/18 - Chief Complaint Shortness of breath - History of Present Illness 73-year-old male who has multiple medical troubles that includes advanced COPD, coronary artery disease presents to Hospital many days ago with progressive shortness of breath and chest pain. Emergency center evaluations occurred including a CT angiogram because of his unique complaints of pain and pneumonia was identified. The patient was treated with respiratory treatments, steroids and antibiotic therapy and improved. He was discharged to home but within hours had an acute exacerbation of his shortness of breath and presented back to Hospital this been admitted ever since. Due to his lack of improvement he has been followed by pulmonary critical care and a bronchoscopy was performed. There is evidence of MRSA in the bronchoscopy specimen in the consult was requested. The patient has been treated with significant amounts of antibiotic therapy we have included Levaquin, Zosyn and vancomycin. Of note the patient's vancomycin CAMMY is 1 but the patient has ongoing significant symptoms and failure of improvement. Review of Systems HEENT:Denies headache or acute visual change. Denies sinus or mouth discomforts. Denies neck stiffness or pain. Denies significant oral cavity pain. Denies difficulty on swallowing. Lungs: Severe shortness of breath with cough sputum production or hemoptysis Cardiovascular: Admission history and chest pain that is improved, continues to have shortness of breath, he has dyspnea with exertion but no syncope Gastrointestinal:Denies nausea, vomiting, diarrhea, constipation, hematemesis, melena, hematochezia. No no significant change of bowel habit noticed. Musculoskeletal: denies significant myalgias or arthralgias. No new joint swelling. Denies new back pain. Skin: Denies new rash or lesions. No new ulcers or wounds are related.. Neuro: Denies headache or visual change. Denies any new onset weakness or difficulty with ambulation. Denies falls or seizures. Psychiatric: Chronic anxiety and depression that have been ongoing since the of his . Endocrine: Patient has significant fatigue and weight loss appetite is poor with his poor mood Past Medical History Past Medical History: COPD, Hyperlipidemia Additional Past Medical History / Comment(s): pneumonia History of Any Multi-Drug Resistant Organisms: None Reported Additional Past Surgical History / Comment(s): back fusion. hip surgery x 2 Past Anesthesia/Blood Transfusion Reactions: No Reported Reaction Past Psychological History: No Psychological Hx Reported Additional Psychological History / Comment(s): Recently lost his and is still actively grieving. Tobacco smoker and has increased since his 's he was trying to quit prior. 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 No animals in the home. Adult children do not live close by. No drug use Smoking Status: Former smoker Past Alcohol Use History: None Reported Past Drug Use History: None Reported - Past Family History Father Family Medical History: Myocardial Infarction ([place]) Mother Family Medical History: Myocardial Infarction ([place]) Medications and Allergies Home Medications and Allergies Comment(s): Current Medications Hydrocodone Bitart/Acetaminophen ([place] 5-325) 2 each PO Q6HR PRN PRN Reason: Pain Last Admin: 08/29/18 20:04 Dose: 2 each Documented by: Al Hydroxide/Mg Hydroxide (Maalox) 30 ml PO PC-TID JOHNIE Last Admin: 08/29/18 17:29 Dose: 30 ml Documented by: Albuterol Sulfate (Ventolin Nebulized) 2.5 mg INHALATION RT-Q4H PRN PRN Reason: Bronchospasm Last Admin: 08/24/18 22:16 Dose: 2.5 mg Documented by: Albuterol/Ipratropium (Duoneb 0.5 Mg-3 Mg/3 Ml Soln) 3 ml INHALATION RT-QID JOHNIE Last Admin: 08/29/18 20:20 Dose: 3 ml Documented by: Albuterol/Ipratropium (Duoneb 0.5 Mg-3 Mg/3 Ml Soln) 3 ml INHALATION RT-Q2H PRN PRN Reason: Shortness Of Breath Or Wheezing Enoxaparin Sodium (Lovenox) 40 mg SQ DAILY JOHNIE Last Admin: 08/29/18 07:51 Dose: 40 mg Documented by: Guaifenesin/Codeine Phosphate (Robitussin Ac) 10 ml PO Q4H PRN PRN Reason: Cough Last Admin: 08/29/18 23:20 Dose: 10 ml Documented by: Hydromorphone HCl (Dilaudid) 0.5 mg IVP Q6HR PRN PRN Reason: Pain Last Admin: 08/27/18 09:36 Dose: 0.5 mg Documented by: Sodium Chloride (Saline 0.9%) 1,000 mls @ 100 mls/hr IV .Q10H JOHNIE Last Admin: 08/29/18 20:02 Dose: 100 mls/hr Documented by: Linezolid 600 mg/ IV Solution 300 mls @ 150 mls/hr IVPB Q12H [facility]; Protocol Ketotifen Fumarate (Zaditor) 1 drops BOTH EYES [facility] Last Admin: 08/29/18 20:02 Dose: 1 drops Documented by: Levofloxacin (Levaquin) 750 mg PO HS [facility] Stop: 09/04/18 23:00 Last Admin: 08/29/18 20:02 Dose: 750 mg Documented by: Methylprednisolone Sodium Succinate (Solu-Medrol) 60 mg IV Q6HR [facility] Last Admin: 08/29/18 23:20 Dose: 60 mg Documented by: Miscellaneous Information (Pneumonia Protocol Utilized) 1 each PO ONCE PRN PRN Reason: Per Protocol Miscellaneous Information (Vancomycin Trough Due) 1 each MISCELLANE ONCE ONE Stop: 08/30/18 07:01 Naproxen (Naprosyn) 500 mg PO DAILY [facility] Last Admin: 08/29/18 07:51 Dose: 500 mg Documented by: Nicotine (Habitrol 14mg/24hr Patch) 1 patch TRANSDERM DAILY [facility] Last Admin: 08/29/18 07:52 Dose: 1 patch Documented by: Tramadol HCl (Ultram) 50 mg PO DAILY PRN PRN Reason: Pain Last Admin: 08/28/18 20:57 Dose: 50 mg Documented by: Home Medications Medication Instructions Recorded Confirmed Type Albuterol Inhaler [Ventolin Hfa 2 puff INHALATION RT-Q6H PRN 08/17/18 08/24/18 History Inhaler] Albuterol Nebulized [Ventolin 2.5 mg INHALATION RT-Q6H PRN 08/17/18 08/24/18 History Nebulized] Ergocalciferol [Vitamin D2] 50,000 unit PO Q30D 08/17/18 08/24/18 History Fluticasone/Salmeterol [Advair 1 puff INHALATION RT-BID 08/17/18 08/24/18 History 500-50 Diskus] Multivitamins, Thera [Multivitamin 1 tab PO DAILY 08/17/18 08/24/18 History (formulary)] Mylanta [id number] Chew 1 tab PO PC-TID 08/17/18 08/24/18 History Naproxen 500 mg PO DAILY 08/17/18 08/24/18 History Olopatadine HCl 1 applic BOTH EYES HS 08/17/18 08/24/18 History Simvastatin [Zocor] 20 mg PO DAILY 08/17/18 08/24/18 History Tiotropium [place] [Spiriva] 1 cap INHALATION RT-DAILY 08/17/18 08/24/18 History traMADol HCL [Ultram] 50 mg PO DAILY PRN 08/17/18 08/24/18 History Levofloxacin [Levaquin] 750 mg PO DAILY 7 Days #7 tab 08/22/18 08/24/18 Rx Nicotine 14Mg/24Hr Patch [Habitrol] 1 patch TRANSDERM DAILY 30 Days 08/22/18 08/24/18 Rx #30 patch predniSONE 0 mg PO DIRECTED 12 Days #24 tab 08/22/18 08/24/18 Rx Allergies Allergy/AdvReac Type Severity Reaction Status Date / Time No Known Allergies Allergy Verified 08/24/18 20:19 Physical Exam Vitals: Vital Signs Temp Pulse Pulse Resp BP Pulse Ox 08/29/18 20:35 82 08/29/18 20:21 84 08/29/18 19:03 98.4 F 91 17 144/75 92 L 08/29/18 16:11 82 08/29/18 15:58 80 96 08/29/18 14:20 98.2 F 105 H 16 144/84 90 L 08/29/18 11:52 82 08/29/18 11:41 80 08/29/18 08:15 78 08/29/18 08:05 76 08/29/18 07:07 98.3 F 87 15 157/78 95 08/29/18 01:02 97.8 F 54 L 18 103/52 94 L 08/29/18 00:25 18 Intake and Output 08/29/18 08/29/18 08/30/18 14:59 22:59 06:59 Intake Total 1280 520 Output Total 320 360 Balance 960 160 Intake: IV 800 Sodium Chloride 0.9% 1, 800 000 ml @ 100 mls/hr IV . Q10H [facility] Rx#:[id number] Oral 480 520 Output: Urine 320 360 Other: Weight 63.503 kg 73-year-old male, of a small thin build, is not in severe respiratory distress HEENT: Anicteric conjunctiva are pink and moist nasal mucosa grossly intact without significant lesions, there is no thrush. Neck: The neck is supple without significant lymphadenopathy or thyromegaly. Lungs: Symmetric air entry is noted there is crackles at the right base Rykiel sounds at the right base no significant dullness no egophony scattered wheezes are noted Heart: Regular rate and rhythm with an audible S1-S2, soft S4. There is no significant murmur click or rub, PMI was nondisplaced. Abdomen: Positive bowel sounds soft and nontender without palpable masses or organomegaly. There was no guarding or rebound. Extremities: The upper extremities have excellent pulses they are symmetric, no significant petechiae or telangiectasia. No splinter hemorrhages were noted. Lower extremities have trace pedal edema but no significant ulcerations are seen Neuro: Awake alert oriented to person place and time. There are no acute new gross focal sensory motor deficits. Results CBC & Chem 7: 08/28/18 07:13 08/28/18 07:13 Labs: Microbiology - Last 24 Hours (Table) 08/24/18 20:04 Blood Culture - Preliminary Blood No Growth after 120 hours 08/27/18 12:40 Gram Stain - Final Bronchial Washings - Right Bronchial Washings Culture - Final Methicillin resist S. aureus Santa albicans 08/26/18 12:06 Gram Stain - Final Sputum Sputum Culture - Final Methicillin resist S. aureus Santa albicans Laboratory Results WBC 14.1 k/uL (3.8-10.6) H 08/28/18 07:13 RBC 4.17 m/uL (4.30-5.90) L 08/28/18 07:13 Hgb 12.1 gm/dL (13.0-17.5) L 08/28/18 07:13 Hct 37.3 % (39.0-53.0) L 08/28/18 07:13 MCV 89.5 fL (80.0-100.0) 08/28/18 07:13 MCH 29.2 pg (25.0-35.0) 08/28/18 07:13 MCHC 32.6 g/dL (31.0-37.0) 08/28/18 07:13 RDW 14.3 % (11.5-15.5) 08/28/18 07:13 Plt Count 389 k/uL (150-450) 08/28/18 07:13 Neutrophils % 91 % 08/24/18 20:04 Lymphocytes % 5 % 08/24/18 20:04 Monocytes % 3 % 08/24/18 20:04 Eosinophils % 1 % 08/24/18 20:04 Basophils % 0 % 08/24/18 20:04 Neutrophils # 16.3 k/uL (1.3-7.7) H 08/24/18 20:04 Lymphocytes # 0.8 k/uL (1.0-4.8) L 08/24/18 20:04 Monocytes # 0.5 k/uL (0-1.0) 08/24/18 20:04 Eosinophils # 0.1 k/uL (0-0.7) 08/24/18 20:04 Basophils # 0.0 k/uL (0-0.2) 08/24/18 20:04 PT 10.9 sec (9.0-12.0) 08/24/18 20:04 INR 1.0 (<1.2) 08/24/18 20:04 APTT 22.8 sec (22.0-30.0) 08/24/18 20:04 Sodium 136 mmol/L (137-145) L 08/28/18 07:13 Potassium 4.3 mmol/L (3.5-5.1) 08/28/18 07:13 Chloride 99 mmol/L (98-107) 08/28/18 07:13 Carbon Dioxide 30 mmol/L (22-30) 08/28/18 07:13 Anion Gap 7 mmol/L 08/28/18 07:13 BUN 26 mg/dL (9-20) H 08/28/18 07:13 Creatinine 0.62 mg/dL (0.66-1.25) L 08/28/18 07:13 Est GFR (CKD-EPI)AfAm >90 (>60 ml/min/1.73 sqM) 08/28/18 07:13 Est GFR (CKD-EPI)NonAf >90 (>60 ml/min/1.73 sqM) 08/28/18 07:13 Glucose 115 mg/dL (74-99) H 08/28/18 07:13 Calcium 8.4 mg/dL (8.4-10.2) 08/28/18 07:13 Magnesium 1.9 mg/dL (1.6-2.3) 08/24/18 20:04 Total Bilirubin 0.7 mg/dL (0.2-1.3) 08/24/18 20:04 AST 22 U/L (17-59) 08/24/18 20:04 ALT 28 U/L (21-72) 08/24/18 20:04 Alkaline Phosphatase 51 U/L (38-126) 08/24/18 20:04 Troponin I <0.012 ng/mL (0.000-0.034) 08/24/18 20:04 NT-Pro-B Natriuret Pep 247 pg/mL 08/24/18 20:04 Total Protein 6.0 g/dL (6.3-8.2) L 08/24/18 20:04 Albumin 3.4 g/dL (3.5-5.0) L 08/24/18 20:04 Vancomycin Trough 15.7 ug/mL 08/27/18 08:09 Virus Source See Below 08/27/18 12:40 Viral Test See Below 08/27/18 12:40 Virus Analysis Interp See Below 08/27/18 12:40 Microbiology 08/24/18 20:04 Blood Blood Culture - Preliminary No Growth after 120 hours 08/27/18 12:40 Bronchial Washings - Right Gram Stain - Final 08/27/18 12:40 Bronchial Washings - Right Bronchial Washings Culture - Final Methicillin resist S. aureus Santa albicans 08/26/18 12:06 Sputum Gram Stain - Final 08/26/18 12:06 Sputum Sputum Culture - Final Methicillin resist S. aureus Santa albicans 08/27/18 12:40 Bronchial Washings - Right Acid Fast Bacilli Smear - Final 08/27/18 12:40 Bronchial Washings - Right Acid Fast Bacilli Culture - Preliminary 08/27/18 12:40 Bronchial Washings - Right Fungal Culture - Preliminary Viral testing at the time of bronchoscopy fails to reveal evidence of virus Assessment and Plan (1) COPD exacerbation Current Visit: Yes Status: Acute Code(s): J44.1 - CHRONIC OBSTRUCTIVE PULMONARY DISEASE W (ACUTE) EXACERBATION SNOMED Code(s): 663131546 (2) Right lower lobe pneumonia Current Visit: Yes Status: Acute Code(s): J18.1 - LOBAR PNEUMONIA, UNS PECIFIED ORGANISM SNOMED Code(s): 034404490 (3) MRSA pneumonia Narrative/Plan: 73-year-old male presents to hospital with increasing symptoms of shortness of breath and chest pain. His pain was radiating there was concerns to aneurysm and consequent computed tomography scan was performed. The patient had no evidence of aneurysm however right lower lobe pneumonia was noted on the computed tomography scan. He was initiated antibiotic therapy with Zosyn and vancomycin. With respiratory treatments and steroid therapy the patient felt considerably better and was discharged home. However within hours of his discharge he had an acute exacerbation & [facility] emergency center has been admitted since. Because of his failure to improve bronchoscopy was performed which revealed evidence of the purulent tracheal bronchitis but no tumors or masses. Culture reveals evidence of MRSA. The patient has been in vancomycin therapy and despite that has had lack of improvement of his symptoms and constantly has failed vancomycin therapy and will initiate Zyvox. This was may be discontinued. The viral studies are negative. I believe legionella is still pending and while that is occurring May continue the Levaquin for now. Karrie solano planning is in process. Current Visit: Yes Status: Acute Code(s): J15.212 - PNEUMONIA DUE TO METHICILLIN RESISTANT STAPHYLOCOCCUS AUREUS SNOMED Code(s): 965445523469774
[2018-08-29] MEDS: LINEZOLID 600 MG in DEXTROSE/WATER 1 300ML.BAG IVPB SCH (23:58)
[2018-08-30] MEDS: methylPREDNISolone SOD SUCCI 125 MG/2 ML VIAL IV SCH ×3 (05:53→17:56)
[2018-08-30] MEDS ORDERED: VANCOMYCIN TROUGH DUE 1 EACH MISC MISCELLANE ONE (07:00)
[2018-08-30 07:33] LABS: African American GFR (CKD) >90 (>60 ml/min/1.73 sqM)
[2018-08-30] MEDS: IPRATROPIUM-ALBUTEROL 3 ML NEB INHALATION SCH ×4 (07:59→20:19)
[2018-08-30] MEDS: NICOTINE 14MG/24HR PATCH TRANSDERM SCH (09:55)
[2018-08-30] MEDS: SODIUM CHLORIDE 0.9% 1,000 ML IV SCH ×2 (09:56→17:57)
[2018-08-30] MEDS: ENOXAPARIN 40 MG/0.4 ML SYRINGE SQ SCH (09:56)
[2018-08-30] MEDS: MAG HYDROX/AL HYDROX/SIMETH 30 ML CUP PO SCH ×3 (09:56→17:56)
[2018-08-30] MEDS: NAPROXEN 250 MG TAB PO SCH (09:56)
[2018-08-30] MEDS: HYDROcodone/APAP 5-325MG 1 EACH TAB PO PRN ×2 (10:03→17:56)
--- NOTE | 2018-08-30 10:38 | P.PN ---
Subjective Progress Note Date: 08/30/18 Principal diagnosis: Shortness of breath, cough, congestion, worsening right mid and lower lobe pneumonia This is a 73-year-old white male patient with history of advanced COPD, with baseline FEV1 of 31% of predicted, a chronic history of smoking, history of multiple comorbidities including chronic hepatitis C, essential hypertension, history of solitary lung nodule, and thoracic aortic aneurysm. Patient carries [id number] smoking history, was down to half a pack a day. On a combination of Advair and Spiriva and nebulized bronchodilators on as-needed basis, not on any home oxygen. Patient follows with Dr. Anderson in the pulmonary clinic, recently lost his , and has been smoking a bit more since then. On 08/17/2018 patient presented to the emergency department for evaluation of right-sided chest pain, and right arm pain with onset of symptoms on Saturday, accompanied by shortness of breath. He is also complaining of cough and increased chest congestion. Denied any history of fevers or chills, denied any diaphoresis, abdominal pain, nausea or vomiting. No lower extremity swelling. Chest x-ray was completed showing COPD with patchy consolidation in the right mid and lower lung. CT angiography of the chest with intravenous contrast showed no evidence of aortic aneurysm or dissection, no pulmonary embolism, heterogeneous airspace disease at the right lower lobe posteriorly concerning for pneumonia, and moderate centrilobular emphysema with spiculated lesion at the superior segment of the right lower lobe measuring 1 cm. Patient has a left lower lobe nodule/spiculated density that is being followed by Dr. Anderson in outpatient basis. Patient has a descending aortic aneurysm measuring 4.5 x 4.4 cm previously measuring 4.[address] thoracic aorta from 08/17/2018, aorta measures a maximum dimension of 4.6 cm anterior-posterior. No evidence of aortic dissection. Labs were positive for evidence of leukocytosis, white blood cell count was 18.9, hemoglobin of 14.8, serum sodium was 135, potassium 4.0, chloride was 97, normal renal profile with a BUN of 20 creatinine 0.95. Troponin was negative 1, proBNP was 85. Patient was placed on antibiotic coverage with Zosyn and vancomycin, oral prednisone, he was given a liter bolus of fluid in the emergency department. Lactic acid was within normal limits at 1.2. We're consulted for right middle and lower lobe pneumonia. The patient is seen today 08/19/2018 in follow-up on the regular medical floor. He is currently sitting up at the bedside. Awake and alert in no acute distres s. The right-sided chest discomfort and wheezing. He continues with a productive cough. Sputum cultures pending. He is maintaining good O2 saturations in the 90s on 3 L/m per nasal cannula. He's been afebrile. Blood cultures reveal no growth thus far. White count 18.2. Hemoglobin 13.1. Crea tinine 0.92. He remains on DuoNeb inhalations, Symbicort, Zosyn and Levaquin, Habitrol. On 08/20/2016 patient seen in follow-up on medical surgical floor. Is awake and alert, calm and comfortable, pulse ox is 96% on 3 L, no fever or chills, lung sounds revealed coarse breath sounds and some crackles at bilateral bases, chest x-ray revealed right perihilar and right lower lobe infiltrate persistence. We'll continue current medical treatment, urine culture revealed Santa albicans only so far. Blood cultures was negative. Cotninue with the current antibiotic coverage in the form of Zosyn and Levaquin, occasional cough with production of sputum, no hemoptysis. No chest pain. On 08/22/2018 patient seen in follow-up on medical surgical floor. Clinical patient continues to improve, no worsening shortness of breath, he is on 4 L of oxygen with a pulse ox of 92%, afebrile, hemodynamically stable, lung sounds are positive for a few scattered rhonchi, no significant wheezing, no fever or chills, blood and sputum cultures were negative with exception of Santa albicans in the sputum culture that could be oral luis contamination. Patient continues on Zosyn and Levaquin, no worsening cough or congestion, or hemoptysis, no chest tenderness. Today's follow-up chest x-ray has been reviewed, showing improvement in the appearance of right medial lung base, and persistence of perihilar infiltrate. On 08/25/2018 patient seen medical surgical floor, after patient was discharged home on 08/23/2018 patient developed right lower chest wall pain, increased shortness of breath, and patient came back to the hospital for reevaluation. He states he had a low-grade fever, he had a cough with production of brownish colored sputum, during last admission patient was treated with Zosyn and Levaquin, and sputum cultures did not show any growth. Patient's chest x-ray appearance of the right mid and right lower lobe pneumonia was improving, patient was clinically improving and patient was subsequently discharged home. Denies smoking when he returned home. He was taking his medications as prescribed according to him. He was also feeling weak. Chest x-ray was obtained in the emergency department showing worsening right perihilar and right lower lobe pneumonia patient was admitted for IV antibiotics in the form of Levaquin and Zosyn. Overnight he has been afebrile, he is currently on 4 L of oxygen with a pulse ox of 92%, hemodynamically stable, is on breathing treatments, lung sounds are positive for coarse his paternal crackles over right mid and lower lobe, he was given IV fluids, admission blood work was reviewed showing white blood cell count of 17.8, hemoglobin of 15.4, sodium was 134, this is 4.6, chloride is 96, his BUN was 27, creatinine is 0.74, troponin was negative 1, proBNP was 247. On 08/26/2018 patient seen in follow-up on medical surgical floor. He is awake and alert, in no acute distress, he states right lower chest pain has improved, although has not completely resolved. He is on supplemental oxygen currently on 4 L, his pulse ox is 90-91%, hemodynamically stable, afebrile, no cough, no hemoptysis. Lung Sounds reveal coarse is paternal crackles over right mid and lower lung. Antibiotic coverage includes Zosyn, Levaquin and vancomycin, bronchoscopy with BAL has been scheduled for tomorrow, and patient is agreeable to proceed. On 08/27/2018 patient seen in follow-up on medical surgical floor. Still have not right-sided pleuritic chest pain, dyspneic. No fever or chills, had some night sweats the night before. Currently on 4 L of oxygen and his pulse ox is fluctuating between 86-91%, afebrile. Occasional cough, but no sputum production, blood culture showed no growth at 48 hours, sputum culture showed rare budding yeast, final cultures pending. She is on a combination of Levaquin, Zosyn and vancomycin, and patient scheduled for bronchoscopy with BAL today by Dr. Anderson On 08/28/2018 patient seen in follow-up on medical surgical floor. He states his breathing easier, right-sided chest pain has improved, he is currently on 4 L of oxygen with a pulse ox of 92%, today's chest x-ray was reviewed, showing early cavitation in the posterior right perihilar consolidation, otherwise improving right perihilar and lower lobe pneumonia. Bronchial wash cultures are pending, no fever or chills, patient is covered with a combination of Levaquin and Zosyn and vancomycin. Occasional cough, with no significant phlegm produc tion. White count is trending down, down to 14.1 on today's labs, hemoglobin is 12.1, sodium is 136, potassium is 4.3, chloride is 99, CO2 is 30, B1 is 26 and creatinine 0.62. On 08/29/2018 patient seen in follow-up on medical surgical floor. Overnight he had some coughing spells, not bringing up much sputum. Still has the right- sided chest discomfort with coughing, but seems to be improved since admission. BAL cultures are positive for presumptive staph aureus, urine cultures are positive for MRSA, and patient is covered with vancomycin, in addition to Levaquin and Zosyn. Today's chest x-ray shows persistent right mid to lower lung edema/infiltrate and persistent small bilateral pleural effusions with associated atelectasis and/or infiltrate. Afebrile, but feels warm to touch. Lung sounds are positive for coarse crackles over right lung, less prominent crackles on the left. Cytology of the BAL was negative The patient is seen today 08/30/2018 in follow-up on the regular medical floor. He is currently sitting up at the bedside. Awake and alert in no acute distress. He continues with a loose cough. Shortness of breath with minimal exertion. Currently on 5 L high flow nasal cannula to maintain O2 saturation in the low 90s. He's been afebrile. Hemodynamically stable. Sputum cultures positive for MRSA and Santa. Creatinine 0.61. He remains on Levaquin and linezolid. He remains on bronchodilators, IV Solu-Medrol, Habitrol. Objective - Vital Signs Vital signs: Vital Signs Temp 98.2 F 08/30/18 06:47 Pulse 84 08/30/18 08:12 Resp 18 08/30/18 06:47 BP 155/74 08/30/18 06:47 Pulse Ox 93 L 08/30/18 07:59 Intake & Output 08/29/18 08/30/18 08/30/18 18:59 06:59 18:59 Intake Total 1800 Output Total 680 300 Balance 1120 -300 Weight 63.503 kg Intake: IV 800 Sodium Chloride 0.9% 1, 800 000 ml @ 100 mls/hr IV . Q10H JOHNIE Rx#:[id number] Oral 1000 Output: Urine 680 300 - Exam GENERAL EXAM: Alert, 73-year-old male, currently on 5 L of oxygen with a pulse ox of 93%. HEAD: Normocephalic/atraumatic. EYES: Normal reaction of pupils, equal size. Conjunctiva pink, sclera white. NOSE: Clear with pink turbinates. THROAT: No erythema or exudates. NECK: No masses, no JVD, no thyroid enlargement, no adenopathy. CHEST: No chest wall deformity. Symmetrical expansion. LUNGS: Equal air entry with coarse inspiratory crackles over right lower lobe and right middle lobe CVS: Regular rate and rhythm, normal S1 and S2, no gallops, no murmurs, no rubs ABDOMEN: Soft, nontender. No hepatosplenomegaly, normal bowel sounds, no guarding or rigidity. EXTREMITIES: No clubbing, no edema, no cyanosis, 2+ pulses and upper and lower extremities. MUSCULOSKELETAL: Muscle strength and tone normal. SPINE: No scoliosis or deformity SKIN: No rashes CENTRAL NERVOUS SYSTEM: No focal deficits, tone is normal in all 4 extremities. PSYCHIATRIC: Alert and oriented -3. Appropriate affect. Intact judgment and insight. - Labs CBC & Chem 7: 08/28/18 07:13 08/30/18 06:35 Labs: Abnormal Lab Results - Last 24 Hours (Table) 08/30/18 Range/Units 06:35 Creatinine 0.61 L (0.66-1.25) mg/dL Microbiology - Last 24 Hours (Table) 08/24/18 20:04 Blood Culture - Preliminary Blood No Growth after 120 hours 08/27/18 12:40 Gram Stain - Final Bronchial Washings - Right Bronchial Washings Culture - Final Methicillin resist S. aureus Santa albicans 08/26/18 12:06 Gram Stain - Final Sputum Sputum Culture - Final Methicillin resist S. aureus Santa albicans Assessment and Plan Assessment: Assessment: #1. Acute hypoxemic respiratory failure related to worsening right middle and right lower lobe pneumonia, healthcare acquired pneumonia, status post bronchoscopy with BAL, BAL and sputum cultures positive for MRSA #2. Recent admission for acute right middle and right lower lobe pneumonia, and was treated with a combination of Zosyn and Levaquin, cultures did not show any growth, patient was showing radiographic and clinical improvement and was discharged home on 08/23/2018, after going home patient's started having increasing shortness of breath, and right lower pleuritic chest pain and hence came back to the hospital within 24 hours of discharge #3. History of advanced COPD, stage III, with baseline FEV1 of 31% of predicted, not on home oxygen #4. Chronic and ongoing nicotine dependence, patient carries [id number] smoking history #5. Hyperlipidemia #6. Chronic hepatitis C #7. Hypertension #8. Ascending thoracic aortic aneurysm, being followed in the outpatient basis, there was previously measuring 4.5 x 4.4 cm, thoracic CTA was completed showing dimension of 4.6 cm anterior-posterior at a maximum, with no evidence of aortic dissection #9. Chronic back pain #10. Solitary lung nodule in the left upper lobe previously measuring 8 mm in size, being followed in the outpatient basis by Dr. Anderson. Thoracic CTA chest also revealed a spiculated lesion at the superior segment of the right lower lobe measuring 1 cm #11. Psoriasis Plan: The patient was seen and evaluated by Dr. Hicks. We'll continue with the current treatment plan for now. Infectious diseases on the case. He remains on Levaquin and linezolid now. Continue bronchodilators, IV Solu-Medrol, NicoDerm. Increase his activity as tolerated. Titrate down the FiO2 as tolerated. We'll continue to follow. I, the cosigning physician, performed a history & physical examination of the patient. Lungs sounds with bilateral scattered rhonchi, crackles in posterior bases. Maintaining good O2 saturations in the 90s on 5 L/m per nasal cannula. I discussed the assessment and plan of care with my nurse practitioner, Joi Bustamante. I attest to the above note as dictated by her.
[2018-08-30] MEDS: LINEZOLID 600 MG in DEXTROSE/WATER 1 300ML.BAG IVPB SCH (12:18)
--- NOTE | 2018-08-30 12:34 | PN ---
PROGRESS NOTE CHIEF COMPLAINT: Right lower lobe pneumonitis. HISTORY OF PRESENT ILLNESS: This gentleman is not doing well. He continues to be very short of breath and actually felt worse during the night. He has grown MRSA out of the right lung and now Santa albicans. REVIEW OF SYSTEMS: He has had no fever or chills. He remains quite dyspneic and he is not coughing up a lot of sputum. He has no chills. PHYSICAL EXAM: HEENT is normal. Neck veins are not distended. Chest demonstrates poor breath sounds on the right side, particularly at the right lower lobe area. There are rales and rhonchi scattered about. Cardiac exam is normal. Abdomen is soft, nontender. IMPRESSION: 1. Persistent perihilar and right lower lobe pneumonitis. 2. Sputum culture positive for methicillin-resistant Staphylococcus aureus. 3. Sputum culture positive for Santa. PLAN: Continue to follow with medication changes directed by Infectious Disease along with updrafts. MMODL / IJN: [id number] /
[2018-08-30] MEDS: KETOTIFEN 0.025% OPHTH DROPS 5 ML BTL BOTH EYES SCH (20:04)
[2018-08-30] MEDS: LEVOFLOXACIN 750 MG TAB PO SCH (20:04)
--- NOTE | 2018-08-30 23:10 | P.PN ---
Subjective Progress Note Date: 08/30/18 73-year-old male who has multiple medical troubles that includes advanced COPD, coronary artery disease presents to Hospital many days ago with progressive shortness of breath and chest pain. Emergency center evaluations occurred including a CT angiogram because of his unique complaints of pain and pneumonia was identified. The patient was treated with respiratory treatments, steroids and antibiotic therapy and improved. He was discharged to home but within hours had an acute exacerbation of his shortness of breath and presented back to Hospital this been admitted ever since. Due to his lack of improvement he has been followed by pulmonary critical care and a bronchoscopy was performed. There is evidence of MRSA in the bronchoscopy specimen in the consult was requested. The patient has been treated with significant amounts of antibiotic therapy we have included Levaquin, Zosyn and vancomycin. Of note the patient's vancomycin CAMMY is 1 but the patient has ongoing significant symptoms and failure of improvement. 08/30/2018 the patient is feeling better today. He has less cough and less shortness of breath so he does not feel well. He is having no difficulty with the antibiotic change in that he is having no fevers or chills. He is having no rash, no nausea or emesis or diarrhea. Objective - Vital Signs Vital signs: Vital Signs Temp 98.3 F 08/30/18 19:24 Pulse 91 08/30/18 20:31 Resp 18 08/30/18 19:24 BP 152/78 08/30/18 19:24 Pulse Ox 93 L 08/30/18 19:24 Intake & Output 08/30/18 08/30/18 08/31/18 06:59 18:59 06:59 Intake Total 360 300 Output Total 300 300 Balance -300 60 300 Intake: Oral 360 300 Output: Urine 300 300 Other: # Voids 2 - Exam 73-year-old male, of a small thin build, is not in severe respiratory distress HEENT: Anicteric conjunctiva are pink and moist nasal mucosa grossly intact without significant lesions, there is no thrush. Neck: The neck is supple without significant lymphadenopathy or thyromegaly. Lungs: Symmetric air entry is noted there is crackles at the right base Rykiel s ounds at the right base no significant dullness no egophony scattered wheezes are noted Heart: Regular rate and rhythm with an audible S1-S2, soft S4. There is no significant murmur click or rub, PMI was nondisplaced. Abdomen: Positive bowel sounds soft and nontender without palpable masses or organomegaly. There was no guarding or rebound. Extremities: The upper extremities have excellent pulses they are symmetric, no significant petechiae or telangiectasia. No splinter hemorrhages were noted. Lower extremities have trace pedal edema but no significant ulcerations are seen Neuro: Awake alert oriented to person place and time. There are no acute new gross focal sensory motor deficits. - Labs CBC & Chem 7: 08/28/18 07:13 08/30/18 06:35 Labs: Abnormal Lab Results - Last 24 Hours (Table) 08/30/18 Range/Units 06:35 Creatinine 0.61 L (0.66-1.25) mg/dL Microbiology - Last 24 Hours (Table) 08/24/18 20:04 Blood Culture - Final Blood No Growth after 144 hours Laboratory Results WBC 14.1 k/uL (3.8-10.6) H 08/28/18 07:13 RBC 4.17 m/uL (4.30-5.90) L 08/28/18 07:13 Hgb 12.1 gm/dL (13.0-17.5) L 08/28/18 07:13 Hct 37.3 % (39.0-53.0) L 08/28/18 07:13 MCV 89.5 fL (80.0-100.0) 08/28/18 07:13 MCH 29.2 pg (25.0-35.0) 08/28/18 07:13 MCHC 32.6 g/dL (31.0-37.0) 08/28/18 07:13 RDW 14.3 % (11.5-15.5) 08/28/18 07:13 Plt Count 389 k/uL (150-450) 08/28/18 07:13 Neutrophils % 91 % 08/24/18 20:04 Lymphocytes % 5 % 08/24/18 20:04 Monocytes % 3 % 08/24/18 20:04 Eosinophils % 1 % 08/24/18 20:04 Basophils % 0 % 08/24/18 20:04 Neutrophils # 16.3 k/uL (1.3-7.7) H 08/24/18 20:04 Lymphocytes # 0.8 k/uL (1.0-4.8) L 08/24/18 20:04 Monocytes # 0.5 k/uL (0-1.0) 08/24/18 20:04 Eosinophils # 0.1 k/uL (0-0.7) 08/24/18 20:04 Basophils # 0.0 k/uL (0-0.2) 08/24/18 20:04 PT 10.9 sec (9.0-12.0) 08/24/18 20:04 INR 1.0 (<1.2) 08/24/18 20:04 APTT 22.8 sec (22.0-30.0) 08/24/18 20:04 Sodium 136 mmol/L (137-145) L 08/28/18 07:13 Potassium 4.3 mmol/L (3.5-5.1) 08/28/18 07:13 Chloride 99 mmol/L (98-107) 08/28/18 07:13 Carbon Dioxide 30 mmol/L (22-30) 08/28/18 07:13 Anion Gap 7 mmol/L 08/28/18 07:13 BUN 26 mg/dL (9-20) H 08/28/18 07:13 Creatinine 0.61 mg/dL (0.66-1.25) L 08/30/18 06:35 Est GFR (CKD-EPI)AfAm >90 (>60 ml/min/1.73 sqM) 08/30/18 06:35 Est GFR (CKD-EPI)NonAf >90 (>60 ml/min/1.73 sqM) 08/30/18 06:35 Glucose 115 mg/dL (74-99) H 08/28/18 07:13 Calcium 8.4 mg/dL (8.4-10.2) 08/28/18 07:13 Magnesium 1.9 mg/dL (1.6-2.3) 08/24/18 20:04 Total Bilirubin 0.7 mg/dL (0.2-1.3) 08/24/18 20:04 AST 22 U/L (17-59) 08/24/18 20:04 ALT 28 U/L (21-72) 08/24/18 20:04 Alkaline Phosphatase 51 U/L (38-126) 08/24/18 20:04 Troponin I <0.012 ng/mL (0.000-0.034) 08/24/18 20:04 NT-Pro-B Natriuret Pep 247 pg/mL 08/24/18 20:04 Total Protein 6.0 g/dL (6.3-8.2) L 08/24/18 20:04 Albumin 3.4 g/dL (3.5-5.0) L 08/24/18 20:04 Vancomycin Trough 15.7 ug/mL 08/27/18 08:09 Virus Source See Below 08/27/18 12:40 Viral Test See Below 08/27/18 12:40 Virus Analysis Interp See Below 08/27/18 12:40 Microbiology 08/24/18 20:04 Blood Blood Culture - Final No Growth after 144 hours 08/27/18 12:40 Bronchial Washings - Right Gram Stain - Final 08/27/18 12:40 Bronchial Washings - Right Bronchial Washings Culture - Final Methicillin resist S. aureus Santa albicans 08/26/18 12:06 Sputum Gram Stain - Final 08/26/18 12:06 Sputum Sputum Culture - Final Methicillin resist S. aureus Santa albicans 08/27/18 12:40 Bronchial Washings - Right Acid Fast Bacilli Smear - Final 08/27/18 12:40 Bronchial Washings - Right Acid Fast Bacilli Culture - Preliminary 08/27/18 12:40 Bronchial Washings - Right Fungal Culture - Preliminary Assessment and Plan (1) COPD exacerbation Current Visit: Yes Status: Acute Code(s): J44.1 - CHRONIC OBSTRUCTIVE PULMONARY DISEASE W (ACUTE) EXACERBATION SNOMED Code(s): 184575165 (2) Right lower lobe pneumonia Current Visit: Yes Status: Acute Code(s): J18.1 - LOBAR PNEUMONIA, UNSPECIFIED ORGANISM SNOMED Code(s): 308386765 (3) MRSA pneumonia Narrative/Plan: 73-year-old male presents to hospital with increasing symptoms of shortness of breath and chest pain. His pain was radiating there was concerns to aneurysm and consequent computed tomography scan was performed. The patient had no evidence of aneurysm however right lower lobe pneumonia was noted on the computed tomography scan. He was initiated antibiotic therapy with Zosyn and vancomycin. With respiratory treatments and steroid therapy the patient felt considerably better and was discharged home. However within hours of his discharge he had an acute exacerbation & repot emergency center has been admitted since. Because of his failure to improve bronchoscopy was performed which revealed evidence of the purulent tracheal bronchitis but no tumors or masses. Culture reveals evidence of MRSA. The patient has been in vancomycin therapy and despite that has had lack of improvement of his symptoms and constantly has failed vancomycin therapy and will initiate Zyvox. This was may be discontinued. The viral studies are negative. I believe legionella is still pending and while that is occurring May continue the Levaquin for now. Discharge planning is in process. 08/30/2018 the patient is fortunately feeling somewhat better today. Still is not feeling well or nearly at his baseline but is encouraged. On the starting to feel slightly better. He still has purulent sputum production but his cough is improving feels less short of breath. Antibiotic therapy will continue with Zyvox. As he improves and becomes ready for discharge to home we'll transition this to oral and plan on this in the outpatient setting. He did follow-up with pulmonary critical care as well as infectious disease. Current Visit: Yes Status: Acute Code(s): J15.212 - PNEUMONIA DUE TO METHI CILLIN RESISTANT STAPHYLOCOCCUS AUREUS SNOMED Code(s): 537866850873602
[2018-08-31] MEDS: guaiFENesin-Coden 100-10MG/5ML 10 ML CUP PO PRN ×2 (00:36→23:51)
[2018-08-31] MEDS: HYDROcodone/APAP 5-325MG 1 EACH TAB PO PRN ×4 (00:36→23:51)
[2018-08-31] MEDS: LINEZOLID 600 MG in DEXTROSE/WATER 1 300ML.BAG IVPB SCH ×3 (00:48→23:59)
[2018-08-31] MEDS: methylPREDNISolone SOD SUCCI 125 MG/2 ML VIAL IV SCH ×2 (00:48→05:39)
[2018-08-31] MEDS: SODIUM CHLORIDE 0.9% 1,000 ML IV SCH ×3 (03:33→23:53)
[2018-08-31] MEDS: IPRATROPIUM-ALBUTEROL 3 ML NEB INHALATION SCH ×4 (08:20→19:54)
[2018-08-31] MEDS: NAPROXEN 250 MG TAB PO SCH (08:31)
[2018-08-31] MEDS: NICOTINE 14MG/24HR PATCH TRANSDERM SCH (08:31)
[2018-08-31] MEDS: MAG HYDROX/AL HYDROX/SIMETH 30 ML CUP PO SCH ×3 (08:31→17:18)
[2018-08-31] MEDS: ENOXAPARIN 40 MG/0.4 ML SYRINGE SQ SCH (08:32)
--- NOTE | 2018-08-31 11:12 | P.PN ---
Subjective Progress Note Date: 08/31/18 Principal diagnosis: Shortness of breath, cough, congestion, worsening right mid and lower lobe pneumonia This is a 73-year-old white male patient with history of advanced COPD, with baseline FEV1 of 31% of predicted, a chronic history of smoking, history of multiple comorbidities including chronic hepatitis C, essential hypertension, history of solitary lung nodule, and thoracic aortic aneurysm. Patient carries [id number] smoking history, was down to half a pack a day. On a combination of Advair and Spiriva and nebulized bronchodilators on as-needed basis, not on any home oxygen. Patient follows with Dr. Anderson in the pulmonary clinic, recently lost his , and has been smoking a bit more since then. On 08/17/2018 patient presented to the emergency department for evaluation of right-sided chest pain, and right arm pain with onset of symptoms on Saturday, accompanied by shortness of breath. He is also complaining of cough and increased chest congestion. Denied any history of fevers or chills, denied any diaphoresis, abdominal pain, nausea or vomiting. No lower extremity swelling. Chest x-ray was completed showing COPD with patchy consolidation in the right mid and lower lung. CT angiography of the chest with intravenous contrast showed no evidence of aortic aneurysm or dissection, no pulmonary embolism, heterogeneous airspace disease at the right lower lobe posteriorly concerning for pneumonia, and moderate centrilobular emphysema with spiculated lesion at the superior segment of the right lower lobe measuring 1 cm. Patient has a left lower lobe nodule/spiculated density that is being followed by Dr. Anderson in outpatient basis. Patient has a descending aortic aneurysm measuring 4.5 x 4.4 cm previously measuring 4.[address] thoracic aorta from 08/17/2018, aorta measures a maximum dimension of 4.6 cm anterior-posterior. No evidence of aortic dissection. Labs were positive for evidence of leukocytosis, white blood cell count was 18.9, hemoglobin of 14.8, serum sodium was 135, potassium 4.0, chloride was 97, normal renal profile with a BUN of 20 creatinine 0.95. Troponin was negative 1, proBNP was 85. Patient was placed on antibiotic coverage with Zosyn and vancomycin, oral prednisone, he was given a liter bolus of fluid in the emergency department. Lactic acid was within normal limits at 1.2. We're consulted for right middle and lower lobe pneumonia. The patient is seen today 08/19/2018 in follow-up on the regular medical floor. He is currently sitting up at the bedside. Awake and alert in no acute distres s. The right-sided chest discomfort and wheezing. He continues with a productive cough. Sputum cultures pending. He is maintaining good O2 saturations in the 90s on 3 L/m per nasal cannula. He's been afebrile. Blood cultures reveal no growth thus far. White count 18.2. Hemoglobin 13.1. Crea tinine 0.92. He remains on DuoNeb inhalations, Symbicort, Zosyn and Levaquin, Habitrol. On 08/20/2016 patient seen in follow-up on medical surgical floor. Is awake and alert, calm and comfortable, pulse ox is 96% on 3 L, no fever or chills, lung sounds revealed coarse breath sounds and some crackles at bilateral bases, chest x-ray revealed right perihilar and right lower lobe infiltrate persistence. We'll continue current medical treatment, urine culture revealed Santa albicans only so far. Blood cultures was negative. Cotninue with the current antibiotic coverage in the form of Zosyn and Levaquin, occasional cough with production of sputum, no hemoptysis. No chest pain. On 08/22/2018 patient seen in follow-up on medical surgical floor. Clinical patient continues to improve, no worsening shortness of breath, he is on 4 L of oxygen with a pulse ox of 92%, afebrile, hemodynamically stable, lung sounds are positive for a few scattered rhonchi, no significant wheezing, no fever or chills, blood and sputum cultures were negative with exception of Santa albicans in the sputum culture that could be oral luis contamination. Patient continues on Zosyn and Levaquin, no worsening cough or congestion, or hemoptysis, no chest tenderness. Today's follow-up chest x-ray has been reviewed, showing improvement in the appearance of right medial lung base, and persistence of perihilar infiltrate. On 08/25/2018 patient seen medical surgical floor, after patient was discharged home on 08/23/2018 patient developed right lower chest wall pain, increased shortness of breath, and patient came back to the hospital for reevaluation. He states he had a low-grade fever, he had a cough with production of brownish colored sputum, during last admission patient was treated with Zosyn and Levaquin, and sputum cultures did not show any growth. Patient's chest x-ray appearance of the right mid and right lower lobe pneumonia was improving, patient was clinically improving and patient was subsequently discharged home. Denies smoking when he returned home. He was taking his medications as prescribed according to him. He was also feeling weak. Chest x-ray was obtained in the emergency department showing worsening right perihilar and right lower lobe pneumonia patient was admitted for IV antibiotics in the form of Levaquin and Zosyn. Overnight he has been afebrile, he is currently on 4 L of oxygen with a pulse ox of 92%, hemodynamically stable, is on breathing treatments, lung sounds are positive for coarse his paternal crackles over right mid and lower lobe, he was given IV fluids, admission blood work was reviewed showing white blood cell count of 17.8, hemoglobin of 15.4, sodium was 134, this is 4.6, chloride is 96, his BUN was 27, creatinine is 0.74, troponin was negative 1, proBNP was 247. On 08/26/2018 patient seen in follow-up on medical surgical floor. He is awake and alert, in no acute distress, he states right lower chest pain has improved, although has not completely resolved. He is on supplemental oxygen currently on 4 L, his pulse ox is 90-91%, hemodynamically stable, afebrile, no cough, no hemoptysis. Lung Sounds reveal coarse is paternal crackles over right mid and lower lung. Antibiotic coverage includes Zosyn, Levaquin and vancomycin, bronchoscopy with BAL has been scheduled for tomorrow, and patient is agreeable to proceed. On 08/27/2018 patient seen in follow-up on medical surgical floor. Still have not right-sided pleuritic chest pain, dyspneic. No fever or chills, had some night sweats the night before. Currently on 4 L of oxygen and his pulse ox is fluctuating between 86-91%, afebrile. Occasional cough, but no sputum production, blood culture showed no growth at 48 hours, sputum culture showed rare budding yeast, final cultures pending. She is on a combination of Levaquin, Zosyn and vancomycin, and patient scheduled for bronchoscopy with BAL today by Dr. Anderson On 08/28/2018 patient seen in follow-up on medical surgical floor. He states his breathing easier, right-sided chest pain has improved, he is currently on 4 L of oxygen with a pulse ox of 92%, today's chest x-ray was reviewed, showing early cavitation in the posterior right perihilar consolidation, otherwise improving right perihilar and lower lobe pneumonia. Bronchial wash cultures are pending, no fever or chills, patient is covered with a combination of Levaquin and Zosyn and vancomycin. Occasional cough, with no significant phlegm produc tion. White count is trending down, down to 14.1 on today's labs, hemoglobin is 12.1, sodium is 136, potassium is 4.3, chloride is 99, CO2 is 30, B1 is 26 and creatinine 0.62. On 08/29/2018 patient seen in follow-up on medical surgical floor. Overnight he had some coughing spells, not bringing up much sputum. Still has the right- sided chest discomfort with coughing, but seems to be improved since admission. BAL cultures are positive for presumptive staph aureus, urine cultures are positive for MRSA, and patient is covered with vancomycin, in addition to Levaquin and Zosyn. Today's chest x-ray shows persistent right mid to lower lung edema/infiltrate and persistent small bilateral pleural effusions with associated atelectasis and/or infiltrate. Afebrile, but feels warm to touch. Lung sounds are positive for coarse crackles over right lung, less prominent crackles on the left. Cytology of the BAL was negative On 08/31/2018 patient was seen in follow-up on medical surgical floor. he is awake and alert, in no acute distress. Right-sided chest pain has subsided, still some residual discomfort on the right with episodes of coughing, otherwise no distress, occasional cough, with no sputum production, patient is working on his incentive spirometer, currently on 4 L of oxygen, his pulse ox is 95%, he has been ambulating within the room, tolerating imbibition well, no hemoptysis, no fever or chills. Currently on a combination of Levaquin and Zyvox for evidence of MRSA pneumonia. Viral culture of the BAL was negative, cytology was negative. Objective - Vital Signs Vital signs: Vital Signs Temp 97.8 F 08/31/18 07:11 Pulse 96 08/31/18 08:33 Resp 18 08/31/18 07:11 BP 160/85 08/31/18 07:11 Pulse Ox 95 08/31/18 07:11 Intake & Output 08/30/18 08/31/18 08/31/18 18:59 06:59 18:59 Intake Total 360 1600 Output Total 300 Balance 60 1600 Intake: Intake, IV Titration 1000 Amount Sodium Chloride 0.9% 1, 1000 000 ml @ 100 mls/hr IV . Q10H [facility] Rx#:[id number] Oral 360 600 Output: Urine 300 Other: # Voids 4 - Exam GENERAL EXAM: Alert, pleasant, 73-year-old white male, currently on 4 L of oxygen with a pulse ox of 95% comfortable in no apparent distress. HEAD: Normocephalic/atraumatic. EYES: Normal reaction of pupils, equal size. Conjunctiva pink, sclera white. NOSE: Clear with pink turbinates. THROAT: No erythema or exudates. NECK: No masses, no JVD, no thyroid enlargement, no adenopathy. CHEST: No chest wall deformity. Symmetrical expansion. LUNGS: Equal air entry with coarse inspiratory crackles over right lower lobe and right middle lobe CVS: Regular rate and rhythm, normal S1 and S2, no gallops, no murmurs, no rubs ABDOMEN: Soft, nontender. No hepatosplenomegaly, normal bowel sounds, no guarding or rigidity. EXTREMITIES: No clubbing, no edema, no cyanosis, 2+ pulses and upper and lower extremities. MUSCULOSKELETAL: Muscle strength and tone normal. SPINE: No scoliosis or deformity SKIN: No rashes CENTRAL NERVOUS SYSTEM: Alert and oriented -3. No focal deficits, tone is normal in all 4 extremities. PSYCHIATRIC: Alert and oriented -3. Appropriate affect. Intact judgment and insight. - Labs CBC & Chem 7: 08/28/18 07:13 08/30/18 06:35 Labs: Microbiology - Last 24 Hours (Table) 08/24/18 20:04 Blood Culture - Final Blood No Growth after 144 hours Assessment and Plan Plan: Assessment: #1. Acute hypoxemic respiratory failure related to worsening right middle and right lower lobe pneumonia, healthcare acquired pneumonia, status post bronchoscopy with BAL, BAL and sputum cultures positive for MRSA #2. Recent admission for acute right middle and right lower lobe pneumonia, and was treated with a combination of Zosyn and Levaquin, cultures did not show any growth, patient was showing radiographic and clinical improvement and was discharged home on 08/23/2018, after going home patient's started having increasing shortness of breath, and right lower pleuritic chest pain and hence came back to the hospital within 24 hours of discharge #3. History of advanced COPD, stage III, with baseline FEV1 of 31% of predicted, not on home oxygen #4. Chronic and ongoing nicotine dependence, patient carries [id number] smoking history #5. Hyperlipidemia #6. Chronic hepatitis C #7. Hypertension #8. Ascending thoracic aortic aneurysm, being followed in the outpatient basis, there was previously measuring 4.5 x 4.4 cm, thoracic CTA was completed showing dimension of 4.6 cm anterior-posterior at a maximum, with no evidence of aortic dissection #9. Chronic back pain #10. Solitary lung nodule in the left upper lobe previously measuring 8 mm in size, being followed in the outpatient basis by Dr. Anderson. Thoracic CTA chest also revealed a spiculated lesion at the superior segment of the right lower lobe measuring 1 cm #11. Psoriasis Plan: Continue antibiotic coverage per ID service recommendations, patient is currently on Levaquin and Zyvox. We'll obtain follow-up chest x-ray tomorrow, wean FiO2, encourage deep breathing and coughing, ambulation. No fever or chills, afebrile cultures are negative, cytology of the BAL is negative. We'll obtain follow-up blood work tomorrow. We'll follow I performed a history & physical examination of the patient and discussed their management with my nurse practitioner, Ashtyn Grigsby. I reviewed the nurse practitioner's note and agree with the documented findings and plan of care. Lung sounds are positive for coarse right lower lobe crackles. The findings and the impression was discussed with the patient. I attest to the documentation by the nurse practitioner. Time with Patient: Less than 30
[2018-08-31] MEDS: methylPREDNISolone SOD SUCCI 40 MG/ML 1 ML VIAL IV SCH ×2 (17:18→23:51)
[2018-08-31] MEDS: LEVOFLOXACIN 750 MG TAB PO SCH (20:36)
[2018-08-31] MEDS: KETOTIFEN 0.025% OPHTH DROPS 5 ML BTL BOTH EYES SCH (20:37)
--- NOTE | 2018-09-01 00:18 | P.PN ---
Subjective Progress Note Date: 08/31/18 73-year-old male who has multiple medical troubles that includes advanced COPD, coronary artery disease presents to Hospital many days ago with progressive shortness of breath and chest pain. Emergency center evaluations occurred including a CT angiogram because of his unique complaints of pain and pneumonia was identified. The patient was treated with respiratory treatments, steroids and antibiotic therapy and improved. He was discharged to home but within hours had an acute exacerbation of his shortness of breath and presented back to Hospital this been admitted ever since. Due to his lack of improvement he has been followed by pulmonary critical care and a bronchoscopy was performed. There is evidence of MRSA in the bronchoscopy specimen in the consult was requested. The patient has been treated with significant amounts of antibiotic therapy we have included Levaquin, Zosyn and vancomycin. Of note the patient's vancomycin CAMMY is 1 but the patient has ongoing significant symptoms and failure of improvement. 08/30/2018 the patient is feeling better today. He has less cough and less shortness of breath so he does not feel well. He is having no difficulty with the antibiotic change in that he is having no fevers or chills. He is having no rash, no nausea or emesis or diarrhea. 08/31/2018 the patient is tolerating antibiotic therapy change quite well. He believes he is less short of breath, he is mobilize some secretions and has improved energy level. Objective - Vital Signs Vital signs: Vital Signs Temp 98.4 F 08/31/18 19:31 Pulse 88 08/31/18 20:06 Resp 18 08/31/18 19:31 BP 153/79 08/31/18 19:31 Pulse Ox 93 L 08/31/18 19:31 Intake & Output 08/31/18 08/31/18 09/01/18 06:59 18:59 06:59 Intake Total 1600 400 Balance 1600 400 Intake: Intake, IV Titration 1000 Amount Sodium Chloride 0.9% 1, 1000 000 ml @ 100 mls/hr IV . Q10H [facility] Rx#:[id number] Oral 600 400 Other: # Voids 4 1 1 # Bowel Movements 1 - Exam 73-year-old male, of a small thin build, is not in severe respiratory distress HEENT: Anicteric conjunctiva are pink and moist nasal mucosa grossly intact without significant lesions, there is no thrush. Neck: The neck is supple without significant lymphadenopathy or thyromegaly. Lungs: Symmetric air entry is noted there is crackles at the right base Rykiel sounds at the right base no significant dullness no egophony scattered wheezes are noted Heart: Regular rate and rhythm with an audible S1-S2, soft S4. There is no significant murmur click or rub, PMI was nondisplaced. Abdomen: Positive bowel sounds soft and nontender without palpable masses or organomegaly. There was no guarding or rebound. Extremities: The upper extremities have excellent pulses they are symmetric, no significant petechiae or telangiectasia. No splinter hemorrhages were noted. L ower extremities have trace pedal edema but no significant ulcerations are seen Neuro: Awake alert oriented to person place and time. There are no acute new gross focal sensory motor deficits. - Labs CBC & Chem 7: 08/28/18 07:13 08/30/18 06:35 Labs: Microbiology - Last 24 Hours (Table) 08/24/18 20:04 Blood Culture - Final Blood No Growth after 144 hours Laboratory Results WBC 14.1 k/uL (3.8-10.6) H 08/28/18 07:13 RBC 4.17 m/uL (4.30-5.90) L 08/28/18 07:13 Hgb 12.1 gm/dL (13.0-17.5) L 08/28/18 07:13 Hct 37.3 % (39.0-53.0) L 08/28/18 07:13 MCV 89.5 fL (80.0-100.0) 08/28/18 07:13 MCH 29.2 pg (25.0-35.0) 08/28/18 07:13 MCHC 32.6 g/dL (31.0-37.0) 08/28/18 07:13 RDW 14.3 % (11.5-15.5) 08/28/18 07:13 Plt Count 389 k/uL (150-450) 08/28/18 07:13 Neutrophils % 91 % 08/24/18 20:04 Lymphocytes % 5 % 08/24/18 20:04 Monocytes % 3 % 08/24/18 20:04 Eosinophils % 1 % 08/24/18 20:04 Basophils % 0 % 08/24/18 20:04 Neutrophils # 16.3 k/uL (1.3-7.7) H 08/24/18 20:04 Lymphocytes # 0.8 k/uL (1.0-4.8) L 08/24/18 20:04 Monocytes # 0.5 k/uL (0-1.0) 08/24/18 20:04 Eosinophils # 0.1 k/uL (0-0.7) 08/24/18 20:04 Basophils # 0.0 k/uL (0-0.2) 08/24/18 20:04 PT 10.9 sec (9.0-12.0) 08/24/18 20:04 INR 1.0 (<1.2) 08/24/18 20:04 APTT 22.8 sec (22.0-30.0) 08/24/18 20:04 Sodium 136 mmol/L (137-145) L 08/28/18 07:13 Potassium 4.3 mmol/L (3.5-5.1) 08/28/18 07:13 Chloride 99 mmol/L (98-107) 08/28/18 07:13 Carbon Dioxide 30 mmol/L (22-30) 08/28/18 07:13 Anion Gap 7 mmol/L 08/28/18 07:13 BUN 26 mg/dL (9-20) H 08/28/18 07:13 Creatinine 0.61 mg/dL (0.66-1.25) L 08/30/18 06:35 Est GFR (CKD-EPI)AfAm >90 (>60 ml/min/1.73 sqM) 08/30/18 06:35 Est GFR (CKD-EPI)NonAf >90 (>60 ml/min/1.73 sqM) 08/30/18 06:35 Glucose 115 mg/dL (74-99) H 08/28/18 07:13 Calcium 8.4 mg/dL (8.4-10.2) 08/28/18 07:13 Magnesium 1.9 mg/dL (1.6-2.3) 08/24/18 20:04 Total Bilirubin 0.7 mg/dL (0.2-1.3) 08/24/18 20:04 AST 22 U/L (17-59) 08/24/18 20:04 ALT 28 U/L (21-72) 08/24/18 20:04 Alkaline Phosphatase 51 U/L (38-126) 08/24/18 20:04 Troponin I <0.012 ng/mL (0.000-0.034) 08/24/18 20:04 NT-Pro-B Natriuret Pep 247 pg/mL 08/24/18 20:04 Total Protein 6.0 g/dL (6.3-8.2) L 08/24/18 20:04 Albumin 3.4 g/dL (3.5-5.0) L 08/24/18 20:04 Vancomycin Trough 15.7 ug/mL 08/27/18 08:09 Virus Source See Below 08/27/18 12:40 Viral Test See Below 08/27/18 12:40 Virus Analysis Interp See Below 08/27/18 12:40 Microbiology 08/24/18 20:04 Blood Blood Culture - Final No Growth after 144 hours 08/27/18 12:40 Bronchial Washings - Right Gram Stain - Final 08/27/18 12:40 Bronchial Washings - Right Bronchial Washings Culture - Final Methicillin resist S. aureus Santa albicans 08/26/18 12:06 Sputum Gram Stain - Final 08/26/18 12:06 Sputum Sputum Culture - Final Methicillin resist S. aureus Santa albicans 08/27/18 12:40 Bronchial Washings - Right Acid Fast Bacilli Smear - Final 08/27/18 12:40 Bronchial Washings - Right Acid Fast Bacilli Culture - Preliminary 08/27/18 12:40 Bronchial Washings - Right Fungal Culture - Preliminary Assessment and Plan (1) COPD exacerbation Current Visit: Yes Status: Acute Code(s): J44.1 - CHRONIC OBSTRUCTIVE PULMONARY DISEASE W (ACUTE) EXACERBATION SNOMED Code(s): 264814805 (2) Right lower lobe pneumonia Current Visit: Yes Status: Acute Code(s): J18.1 - LOBAR PNEUMONIA, UNSPECIFIED ORGANISM SNOMED Code(s): 832131336 (3) MRSA pneumonia Narrative/Plan: 73-year-old male presents to hospital with increasing symptoms of shortness of breath and chest pain. His pain was radiating there was concerns to aneurysm and consequent computed tomography scan was performed. The patient had no evidence of aneurysm however right lower lobe pneumonia was noted on the computed tomography scan. He was initiated antibiotic therapy with Zosyn and vancomycin. With respiratory treatments and steroid therapy the patient felt considerably better and was discharged home. However within hours of his discharge he had an acute exacerbation & [facility] has been admitted since. Because of his failure to improve bronchoscopy was performed which revealed evidence of the purulent tracheal bronchitis but no tumors or masses. Culture reveals evidence of MRSA. The patient has been in vancomycin therapy and despite that has had lack of improvement of his symptoms and constantly has failed vancomycin therapy and will initiate Zyvox. This was may be discontinued. The viral studies are negative. I believe legionella is still pending and while that is occurring May continue the Levaquin for now. Discharge planning is in process. 08/30/2018 the patient is fortunately feeling somewhat better today. Still is not feeling well or nearly at his baseline but is encouraged. On the starting to feel slightly better. He still has purulent sputum production but his cough is improving feels less short of breath. Antibiotic therapy will continue with Zyvox. As he improves and becomes ready for discharge to home we'll transition this to oral and plan on this in the outpatient setting. He did follow-up with pulmonary critical care as well as infectious disease. 08/31/2018 patient is feeling that her today he is less short of breath, has improved cough and is mobilize his secretions better. He is with improved mood due to the fact that he is now starting to have some improvement. Will work with the discharge planners to ensure Zyvox is a covered oral benefit for him. Current Visit: Yes Status: Acute Code(s): J15.212 - PNEUMONIA DUE TO METHICILLIN RESISTANT STAPHYLOCOCCUS AUREUS SNOMED Code(s): 379299443319666
[2018-09-01] MEDS: guaiFENesin-Coden 100-10MG/5ML 10 ML CUP PO PRN (05:01)
[2018-09-01] MEDS: IPRATROPIUM-ALBUTEROL 3 ML NEB INHALATION SCH ×4 (07:42→20:41)
[2018-09-01 08:20] LABS: Basophils % (A) 0 %; Eosinophils % (A) 0 %; HGB 14.1 gm/dL (13.0-17.5); Lymphocytes # (A) 0.5 k/uL (1.0-4.8); Lymphocytes % (A) 4 %; MCH 28.7 pg (25.0-35.0); MCHC 31.9 g/dL (31.0-37.0); MCV 89.9 fL (80.0-100.0); Mean Platelet Volume 6.9; Monocytes # (A) 0.7 k/uL (0-1.0); Monocytes % (A) 6 %; Neutrophils # (A) 11.3 k/uL (1.3-7.7); Neutrophils % (A) 89 %; Platelet Count 398 k/uL (150-450); RDW 13.8 % (11.5-15.5); WBC 12.7 k/uL (3.8-10.6)
[2018-09-01 08:39] LABS: African American GFR (CKD) >90 (>60 ml/min/1.73 sqM); Anion Gap 3 mmol/L; Blood Urea Nitrogen 17 mg/dL (9-20); Calcium 8.4 mg/dL (8.4-10.2); Carbon Dioxide 37 mmol/L (22-30); Chloride 93 mmol/L (98-107); Glucose 100 mg/dL (74-99); Potassium 4.4 mmol/L (3.5-5.1); Sodium 133 mmol/L (137-145)
--- NOTE | 2018-09-01 08:59 | XR ---
EXAMINATION TYPE: XR chest 1V portable DATE OF EXAM: 09/01/2018 COMPARISON: 08/29/2018, chest x-ray 08/19/2018 INDICATION: Pneumonia TECHNIQUE: Single frontal view of the chest is obtained. FINDINGS: The heart size is normal. The pulmonary vasculature is normal. There is a consolidation in the right hilar region which appears similar to prior study. This should be followed to clearing. IMPRESSION: 1. Stable right perihilar infiltrate. Correlate for pneumonia. Continued follow-up is recommended.
[2018-09-01] MEDS: SODIUM CHLORIDE 0.9% 1,000 ML IV SCH ×2 (09:49→20:48)
[2018-09-01] MEDS: ENOXAPARIN 40 MG/0.4 ML SYRINGE SQ SCH (09:53)
[2018-09-01] MEDS: MAG HYDROX/AL HYDROX/SIMETH 30 ML CUP PO SCH ×3 (09:53→17:44)
[2018-09-01] MEDS: methylPREDNISolone SOD SUCCI 40 MG/ML 1 ML VIAL IV SCH ×2 (09:53→17:44)
[2018-09-01] MEDS: NICOTINE 14MG/24HR PATCH TRANSDERM SCH (09:54)
[2018-09-01] MEDS: NAPROXEN 250 MG TAB PO SCH (09:54)
[2018-09-01] MEDS: HYDROcodone/APAP 5-325MG 1 EACH TAB PO PRN ×2 (10:49→20:04)
[2018-09-01] MEDS: LINEZOLID 600 MG in DEXTROSE/WATER 1 300ML.BAG IVPB SCH (12:57)
--- NOTE | 2018-09-01 13:55 | P.PN ---
Subjective Progress Note Date: 09/01/18 Principal diagnosis: Shortness of breath, cough, congestion, worsening right mid and lower lobe pneumonia This is a 73-year-old white male patient with history of advanced COPD, with baseline FEV1 of 31% of predicted, a chronic history of smoking, history of multiple comorbidities including chronic hepatitis C, essential hypertension, history of solitary lung nodule, and thoracic aortic aneurysm. Patient carries [id number] smoking history, was down to half a pack a day. On a combination of Advair and Spiriva and nebulized bronchodilators on as-needed basis, not on any home oxygen. Patient follows with Dr. Anderson in the pulmonary clinic, recently lost his , and has been smoking a bit more since then. On 08/17/2018 patient presented to the emergency department for evaluation of right-sided chest pain, and right arm pain with onset of symptoms on Saturday, accompanied by shortness of breath. He is also complaining of cough and increased chest congestion. Denied any history of fevers or chills, denied any diaphoresis, abdominal pain, nausea or vomiting. No lower extremity swelling. Chest x-ray was completed showing COPD with patchy consolidation in the right mid and lower lung. CT angiography of the chest with intravenous contrast showed no evidence of aortic aneurysm or dissection, no pulmonary embolism, heterogeneous airspace disease at the right lower lobe posteriorly concerning for pneumonia, and moderate centrilobular emphysema with spiculated lesion at the superior segment of the right lower lobe measuring 1 cm. Patient has a left lower lobe nodule/spiculated density that is being followed by Dr. Anderson in outpatient basis. Patient has a descending aortic aneurysm measuring 4.5 x 4.4 cm previously measuring 4.[address] thoracic aorta from 08/17/2018, aorta measures a maximum dimension of 4.6 cm anterior-posterior. No evidence of aortic dissection. Labs were positive for evidence of leukocytosis, white blood cell count was 18.9, hemoglobin of 14.8, serum sodium was 135, potassium 4.0, chloride was 97, normal renal profile with a BUN of 20 creatinine 0.95. Troponin was negative 1, proBNP was 85. Patient was placed on antibiotic coverage with Zosyn and vancomycin, oral prednisone, he was given a liter bolus of fluid in the emergency department. Lactic acid was within normal limits at 1.2. We're consulted for right middle and lower lobe pneumonia. The patient is seen today 08/19/2018 in follow-up on the regular medical floor. He is currently sitting up at the bedside. Awake and alert in no acute distres s. The right-sided chest discomfort and wheezing. He continues with a productive cough. Sputum cultures pending. He is maintaining good O2 saturations in the 90s on 3 L/m per nasal cannula. He's been afebrile. Blood cultures reveal no growth thus far. White count 18.2. Hemoglobin 13.1. Crea tinine 0.92. He remains on DuoNeb inhalations, Symbicort, Zosyn and Levaquin, Habitrol. On 08/20/2016 patient seen in follow-up on medical surgical floor. Is awake and alert, calm and comfortable, pulse ox is 96% on 3 L, no fever or chills, lung sounds revealed coarse breath sounds and some crackles at bilateral bases, chest x-ray revealed right perihilar and right lower lobe infiltrate persistence. We'll continue current medical treatment, urine culture revealed Santa albicans only so far. Blood cultures was negative. Cotninue with the current antibiotic coverage in the form of Zosyn and Levaquin, occasional cough with production of sputum, no hemoptysis. No chest pain. On 08/22/2018 patient seen in follow-up on medical surgical floor. Clinical patient continues to improve, no worsening shortness of breath, he is on 4 L of oxygen with a pulse ox of 92%, afebrile, hemodynamically stable, lung sounds are positive for a few scattered rhonchi, no significant wheezing, no fever or chills, blood and sputum cultures were negative with exception of Santa albicans in the sputum culture that could be oral luis contamination. Patient continues on Zosyn and Levaquin, no worsening cough or congestion, or hemoptysis, no chest tenderness. Today's follow-up chest x-ray has been reviewed, showing improvement in the appearance of right medial lung base, and persistence of perihilar infiltrate. On 08/25/2018 patient seen medical surgical floor, after patient was discharged home on 08/23/2018 patient developed right lower chest wall pain, increased shortness of breath, and patient came back to the hospital for reevaluation. He states he had a low-grade fever, he had a cough with production of brownish colored sputum, during last admission patient was treated with Zosyn and Levaquin, and sputum cultures did not show any growth. Patient's chest x-ray appearance of the right mid and right lower lobe pneumonia was improving, patient was clinically improving and patient was subsequently discharged home. Denies smoking when he returned home. He was taking his medications as prescribed according to him. He was also feeling weak. Chest x-ray was obtained in the emergency department showing worsening right perihilar and right lower lobe pneumonia patient was admitted for IV antibiotics in the form of Levaquin and Zosyn. Overnight he has been afebrile, he is currently on 4 L of oxygen with a pulse ox of 92%, hemodynamically stable, is on breathing treatments, lung sounds are positive for coarse his paternal crackles over right mid and lower lobe, he was given IV fluids, admission blood work was reviewed showing white blood cell count of 17.8, hemoglobin of 15.4, sodium was 134, this is 4.6, chloride is 96, his BUN was 27, creatinine is 0.74, troponin was negative 1, proBNP was 247. On 08/26/2018 patient seen in follow-up on medical surgical floor. He is awake and alert, in no acute distress, he states right lower chest pain has improved, although has not completely resolved. He is on supplemental oxygen currently on 4 L, his pulse ox is 90-91%, hemodynamically stable, afebrile, no cough, no hemoptysis. Lung Sounds reveal coarse is paternal crackles over right mid and lower lung. Antibiotic coverage includes Zosyn, Levaquin and vancomycin, bronchoscopy with BAL has been scheduled for tomorrow, and patient is agreeable to proceed. On 08/27/2018 patient seen in follow-up on medical surgical floor. Still have not right-sided pleuritic chest pain, dyspneic. No fever or chills, had some night sweats the night before. Currently on 4 L of oxygen and his pulse ox is fluctuating between 86-91%, afebrile. Occasional cough, but no sputum production, blood culture showed no growth at 48 hours, sputum culture showed rare budding yeast, final cultures pending. She is on a combination of Levaquin, Zosyn and vancomycin, and patient scheduled for bronchoscopy with BAL today by Dr. Anderson On 08/28/2018 patient seen in follow-up on medical surgical floor. He states his breathing easier, right-sided chest pain has improved, he is currently on 4 L of oxygen with a pulse ox of 92%, today's chest x-ray was reviewed, showing early cavitation in the posterior right perihilar consolidation, otherwise improving right perihilar and lower lobe pneumonia. Bronchial wash cultures are pending, no fever or chills, patient is covered with a combination of Levaquin and Zosyn and vancomycin. Occasional cough, with no significant phlegm produc tion. White count is trending down, down to 14.1 on today's labs, hemoglobin is 12.1, sodium is 136, potassium is 4.3, chloride is 99, CO2 is 30, B1 is 26 and creatinine 0.62. On 08/29/2018 patient seen in follow-up on medical surgical floor. Overnight he had some coughing spells, not bringing up much sputum. Still has the right- sided chest discomfort with coughing, but seems to be improved since admission. BAL cultures are positive for presumptive staph aureus, urine cultures are positive for MRSA, and patient is covered with vancomycin, in addition to Levaquin and Zosyn. Today's chest x-ray shows persistent right mid to lower lung edema/infiltrate and persistent small bilateral pleural effusions with associated atelectasis and/or infiltrate. Afebrile, but feels warm to touch. Lung sounds are positive for coarse crackles over right lung, less prominent crackles on the left. Cytology of the BAL was negative On 08/31/2018 patient was seen in follow-up on medical surgical floor. he is awake and alert, in no acute distress. Right-sided chest pain has subsided, still some residual discomfort on the right with episodes of coughing, otherwise no distress, occasional cough, with no sputum production, patient is working on his incentive spirometer, currently on 4 L of oxygen, his pulse ox is 95%, he has been ambulating within the room, tolerating imbibition well, no hemoptysis, no fever or chills. Currently on a combination of Levaquin and Zyvox for evidence of MRSA pneumonia. Viral culture of the BAL was negative, cytology was negative. On 09/01/2018 patient seen in follow-up on medical surgical floor. No major distress, she remains on supplemental oxygen, currently on 3 L with a pulse ox of 94-95%, he is afebrile, hemodynamically stable, occasional nonproductive cough, no sputum production, no fever or chills, sounds are positive for right posterior lower lobe coarse crackles, no significant wheezing. he is on a combination Levaquin and Zyvox for MRSA pneumonia, today's chest x-ray shows improvement in the appearance of right-sided pneumonia, right perihilar infiltrate. Right-sided chest pain is only with coughing, overall improving, patient has been ambulated but has not been able to ambulate very far. No acute events overnight, today's labs have been reviewed, white blood cell count is 12.7, hemoglobin is 14.1, serum sodium is 133, potassium is 4.4, chloride is 93, CO2 is 37, BUN 17 creatinine 0.64. Clinically stable Objective - Vital Signs Vital signs: Vital Signs Temp 97.7 F 09/01/18 07:00 Pulse 92 09/01/18 11:14 Resp 15 09/01/18 07:00 BP 154/84 09/01/18 07:00 Pulse Ox 94 L 09/01/18 07:00 Intake & Output 08/31/18 09/01/18 09/01/18 18:59 06:59 18:59 Intake Total 1400 240 Balance 1400 240 Intake: Intake, IV Titration 1000 Amount Sodium Chloride 0.9% 1, 1000 000 ml @ 100 mls/hr IV . Q10H [facility] Rx#:[id number] Oral 400 240 Other: # Voids 1 4 # Bowel Movements 1 - Exam GENERAL EXAM: Alert, pleasant, 73-year-old white male, currently on 3 L of oxygen with a pulse ox of 95% comfortable in no apparent distress. HEAD: Normocephalic/atraumatic. EYES: Normal reaction of pupils, equal size. Conjunctiva pink, sclera white. NOSE: Clear with pink turbinates. THROAT: No erythema or exudates. NECK: No masses, no JVD, no thyroid enlargement, no adenopathy. CHEST: No chest wall deformity. Symmetrical expansion. LUNGS: Equal air entry with coarse inspiratory crackles over right lower lobe and right middle lobe CVS: Regular rate and rhythm, normal S1 and S2, no gallops, no murmurs, no rubs ABDOMEN: Soft, nontender. No hepatosplenomegaly, normal bowel sounds, no guarding or rigidity. EXTREMITIES: No clubbing, no edema, no cyanosis, 2+ pulses and upper and lower extremities. MUSCULOSKELETAL: Muscle strength and tone normal. SPINE: No scoliosis or deformity SKIN: No rashes CENTRAL NERVOUS SYSTEM: Alert and oriented -3. No focal deficits, tone is normal in all 4 extremities. PSYCHIATRIC: Alert and oriented -3. Appropriate affect. Intact judgment and insight. - Labs CBC & Chem 7: 09/01/18 07:58 09/01/18 07:58 Labs: Abnormal Lab Results - Last 24 Hours (Table) 09/01/18 09/01/18 Range/Units 07:58 07:58 WBC 12.7 H (3.8-10.6) k/uL Neutrophils # 11.3 H (1.3-7.7) k/uL Lymphocytes # 0.5 L (1.0-4.8) k/uL Sodium 133 L (137-145) mmol/L Chloride 93 L (98-107) mmol/L Carbon Dioxide 37 H (22-30) mmol/L Creatinine 0.64 L (0.66-1.25) mg/dL Glucose 100 H (74-99) mg/dL Microbiology - Last 24 Hours (Table) 08/27/18 12:40 Fungal Culture - Preliminary Bronchial Washings - Right Santa albicans Assessment and Plan Plan: Assessment: #1. Acute hypoxemic respiratory failure related to worsening right middle and right lower lobe pneumonia, healthcare acquired pneumonia, status post bronchoscopy with BAL, BAL and sputum cultures positive for MRSA, viral cultures and cytology are negative #2. Recent admission for acute right middle and right lower lobe pneumonia, and was treated with a combination of Zosyn and Levaquin, cultures did not show any growth, patient was showing radiographic and clinical improvement and was discharged home on 08/23/2018, after going home patient's started having increasing shortness of breath, and right lower pleuritic chest pain and hence came back to the hospital within 24 hours of discharge #3. History of advanced COPD, stage III, with baseline FEV1 of 31% of predicted, not on home oxygen #4. Chronic and ongoing nicotine dependence, patient carries [id number] smoking history #5. Hyperlipidemia #6. Chronic hepatitis C #7. Hypertension #8. Ascending thoracic aortic aneurysm, being followed in the outpatient basis, there was previously measuring 4.5 x 4.4 cm, thoracic CTA was completed showing dimension of 4.6 cm anterior-posterior at a maximum, with no evidence of aortic dissection #9. Chronic back pain #10. Solitary lung nodule in the left upper lobe previously measuring 8 mm in size, being followed in the outpatient basis by Dr. Anderson. Thoracic CTA chest also revealed a spiculated lesion at the superior segment of the right lower lobe measuring 1 cm #11. Psoriasis Plan: Clinically patient is stable, continue weaning FiO2, encourage deep breathing and coughing, today's chest x-ray shows improvement in the appearance of right lung pneumonia, patient is on a combination of Levaquin and Zyvox for MRSA pneumonia, viral cytology of the BAL were negative. No fever or chills, hemodynamically stable, increase activity as tolerated, from pulmonary perspective patient could probably be considered for discharge home in next 24 hours. I performed a history & physical examination of the patient and discussed their management with my nurse practitioner, Ashtyn Grigsby. I reviewed the nurse practitioner's note and agree with the documented findings and plan of care. Lung sounds are positive for coarse right lower lobe crackles. The findings and the impression was discussed with the patient. I attest to the documentation by the nurse practitioner. Time with Patient: Less than 30
--- NOTE | 2018-09-01 16:20 | PN ---
PROGRESS NOTE DATE OF SERVICE: 08/31/2018 CHIEF COMPLAINT: Persistent respiratory failure, pneumonitis and COPD. HISTORY OF PRESENT ILLNESS: This gentleman continues to progress poorly. He is still having a lot of difficulty with shortness of breath and congestion, particularly at night. REVIEW OF SYSTEMS: At the present time he is feeling very fatigued and is very short of breath with exertion. He is not febrile. White count has dropped slightly. He has grown niko out of his sputum. PHYSICAL EXAMINATION: Face is slightly flushed. Neck veins are not distended. Breath sounds are extremely poor throughout, and particularly at the right base. He has extensive wheezing and rhonchi, particularly on the right, and vesicular breath sounds on the right side of the chest. Cardiac exam is normal. Abdomen is soft, nontender. IMPRESSION: 1. Right lower lobe pneumonitis with methicillin-resistant Staphylococcus aeruginosa and niko. 2. Severe chronic obstructive pulmonary disease. 3. Amyloidosis. PLAN: Continue with current efforts. His progress is extremely slow. MMODL / IJN: [id number] /
--- NOTE | 2018-09-01 18:41 | PN ---
PROGRESS NOTE DATE OF SERVICE: 09/01/2018 CHIEF COMPLAINT: Right lower lobe and perihilar pneumonitis with exacerbation of COPD. HISTORY OF PRESENT ILLNESS: This gentleman is not doing any better. Apparently he became very dyspneic during the night. He is unable to cough up any purulent sputum. He feels that he is having more trouble breathing today than in the last several days. PHYSICAL EXAMINATION: He is afebrile. On exam, he has poor breath sounds and vesicular components in the right lower lobe. Cardiac exam is unchanged. Abdomen is soft and nontender. IMPRESSION: 1. Persistent right lower lobe pneumonitis. 2. Increased respiratory inefficiency. 3. Chronic obstructive pulmonary disease. PLAN: Continue efforts to improve this gentleman's respiratory capacity and function. Discharge will be an issue if he does not improve soon. MMODL / IJN: [id number] /
[2018-09-01] MEDS: LINEZOLID 600 MG TAB PO SCH (20:02)
[2018-09-01] MEDS: KETOTIFEN 0.025% OPHTH DROPS 5 ML BTL BOTH EYES SCH (20:45)
[2018-09-01] MEDS: LEVOFLOXACIN 750 MG TAB PO SCH (20:45)
--- NOTE | 2018-09-01 23:52 | P.PN ---
Subjective Progress Note Date: 09/01/18 73-year-old male who has multiple medical troubles that includes advanced COPD, coronary artery disease presents to Hospital many days ago with progressive shortness of breath and chest pain. Emergency center evaluations occurred including a CT angiogram because of his unique complaints of pain and pneumonia was identified. The patient was treated with respiratory treatments, steroids and antibiotic therapy and improved. He was discharged to home but within hours had an acute exacerbation of his shortness of breath and presented back to Hospital this been admitted ever since. Due to his lack of improvement he has been followed by pulmonary critical care and a bronchoscopy was performed. There is evidence of MRSA in the bronchoscopy specimen in the consult was requested. The patient has been treated with significant amounts of antibiotic therapy we have included Levaquin, Zosyn and vancomycin. Of note the patient's vancomycin CAMMY is 1 but the patient has ongoing significant symptoms and failure of improvement. 08/30/2018 the patient is feeling better today. He has less cough and less shortness of breath so he does not feel well. He is having no difficulty with the antibiotic change in that he is having no fevers or chills. He is having no rash, no nausea or emesis or diarrhea. 08/31/2018 the patient is tolerating antibiotic therapy change quite well. He believes he is less short of breath, he is mobilize some secretions and has improved energy level. 09/01/2018 patient is doing somewhat better. He has less short of breath, has less sputum production is tolerating the Zyvox without difficulty. He however has significant edema and it is uncomfortable from it. Objective - Vital Signs Vital signs: Vital Signs Temp 98.1 F 09/01/18 19:28 Pulse 84 09/01/18 20:52 Resp 17 09/01/18 19:28 BP 152/70 09/01/18 19:28 Pulse Ox 93 L 09/01/18 19:28 Intake & Output 09/01/18 09/01/18 09/02/18 06:59 18:59 06:59 Intake Total 1400 480 Balance 1400 480 Intake: Intake, IV Titration 1000 Amount Sodium Chloride 0.9% 1, 1000 000 ml @ 100 mls/hr IV . Q10H JOHNIE Rx#:[id number] Oral 400 480 Other: Voiding Method Toilet # Voids 4 2 - Exam 73-year-old male, of a small thin build, is not in severe respiratory distress HEENT: Anicteric conjunctiva are pink and moist nasal mucosa grossly intact without significant lesions, there is no thrush. Neck: The neck is supple without significant lymphadenopathy or thyromegaly. Lungs: Symmetric air entry is noted there is crackles at the right base Rykiel sounds at the right base no significant dullness no egophony scattered wheezes are noted Heart: Regular rate and rhythm with an audible S1-S2, soft S4. There is no significant murmur click or rub, PMI was nondisplaced. Abdomen: Positive bowel sounds soft and nontender without palpable masses or organomegaly. There was no guarding or rebound. Extremities: The upper extremities have excellent pulses they are symmetric, no significant petechiae or telangiectasia. No splinter hemorrhages were noted. Lower extremities have increased pedal edema but no significant ulcerations are seen Neuro: Awake alert oriented to person place and time. There are no acute new gross focal sensory motor deficits. - Labs CBC & Chem 7: 09/01/18 07:58 09/01/18 07:58 Labs: Abnormal Lab Results - Last 24 Hours (Table) 09/01/18 09/01/18 Range/Units 07:58 07:58 WBC 12.7 H (3.8-10.6) k/uL Neutrophils # 11.3 H (1.3-7.7) k/uL Lymphocytes # 0.5 L (1.0-4.8) k/uL Sodium 133 L (137-145) mmol/L Chloride 93 L (98-107) mmol/L Carbon Dioxide 37 H (22-30) mmol/L Creatinine 0.64 L (0.66-1.25) mg/dL Glucose 100 H (74-99) mg/dL Microbiology - Last 24 Hours (Table) 08/27/18 12:40 Fungal Culture - Preliminary Bronchial Washings - Right Santa albicans Laboratory Results WBC 12.7 k/uL (3.8-10.6) H 09/01/18 07:58 RBC 4.90 m/uL (4.30-5.90) 09/01/18 07:58 Hgb 14.1 gm/dL (13.0-17.5) 09/01/18 07:58 Hct 44.0 % (39.0-53.0) 09/01/18 07:58 MCV 89.9 fL (80.0-100.0) 09/01/18 07:58 MCH 28.7 pg (25.0-35.0) 09/01/18 07:58 MCHC 31.9 g/dL (31.0-37.0) 09/01/18 07:58 RDW 13.8 % (11.5-15.5) 09/01/18 07:58 Plt Count 398 k/uL (150-450) 09/01/18 07:58 Neutrophils % 89 % 09/01/18 07:58 Lymphocytes % 4 % 09/01/18 07:58 Monocytes % 6 % 09/01/18 07:58 Eosinophils % 0 % 09/01/18 07:58 Basophils % 0 % 09/01/18 07:58 Neutrophils # 11.3 k/uL (1.3-7.7) H 09/01/18 07:58 Lymphocytes # 0.5 k/uL (1.0-4.8) L 09/01/18 07:58 Monocytes # 0.7 k/uL (0-1.0) 09/01/18 07:58 Eosinophils # 0.0 k/uL (0-0.7) 09/01/18 07:58 Basophils # 0.0 k/uL (0-0.2) 09/01/18 07:58 PT 10.9 sec (9.0-12.0) 08/24/18 20:04 INR 1.0 (<1.2) 08/24/18 20:04 APTT 22.8 sec (22.0-30.0) 08/24/18 20:04 Sodium 133 mmol/L (137-145) L 09/01/18 07:58 Potassium 4.4 mmol/L (3.5-5.1) 09/01/18 07:58 Chloride 93 mmol/L (98-107) L 09/01/18 07:58 Carbon Dioxide 37 mmol/L (22-30) H 09/01/18 07:58 Anion Gap 3 mmol/L 09/01/18 07:58 BUN 17 mg/dL (9-20) 09/01/18 07:58 Creatinine 0.64 mg/dL (0.66-1.25) L 09/01/18 07:58 Est GFR (CKD-EPI)AfAm >90 (>60 ml/min/1.73 sqM) 09/01/18 07:58 Est GFR (CKD-EPI)NonAf >90 (>60 ml/min/1.73 sqM) 09/01/18 07:58 Glucose 100 mg/dL (74-99) H 09/01/18 07:58 Calcium 8.4 mg/dL (8.4-10.2) 09/01/18 07:58 Magnesium 1.9 mg/dL (1.6-2.3) 08/24/18 20:04 Total Bilirubin 0.7 mg/dL (0.2-1.3) 08/24/18 20:04 AST 22 U/L (17-59) 08/24/18 20:04 ALT 28 U/L (21-72) 08/24/18 20:04 Alkaline Phosphatase 51 U/L (38-126) 08/24/18 20:04 Troponin I <0.012 ng/mL (0.000-0.034) 08/24/18 20:04 NT-Pro-B Natriuret Pep 247 pg/mL 08/24/18 20:04 Total Protein 6.0 g/dL (6.3-8.2) L 08/24/18 20:04 Albumin 3.4 g/dL (3.5-5.0) L 08/24/18 20:04 Vancomycin Trough 15.7 ug/mL 08/27/18 08:09 Virus Source See Below 08/27/18 12:40 Viral Test See Below 08/27/18 12:40 Virus Analysis Interp See Below 08/27/18 12:40 Microbiology 08/27/18 12:40 Bronchial Washings - Right Fungal Culture - Preliminary Santa albicans 08/24/18 20:04 Blood Blood Culture - Final No Growth after 144 hours 08/27/18 12:40 Bronchial Washings - Right Gram Stain - Final 08/27/18 12:40 Bronchial Washings - Right Bronchial Washings Culture - Final Methicillin resist S. aureus Santa albicans 08/26/18 12:06 Sputum Gram Stain - Final 08/26/18 12:06 Sputum Sputum Culture - Final Methicillin resist S. aureus Santa albicans 08/27/18 12:40 Bronchial Washings - Right Acid Fast Bacilli Smear - Final 08/27/18 12:40 Bronchial Washings - Right Acid Fast Bacilli Culture - Preliminary Assessment and Plan (1) COPD exacerbation Current Visit: Yes Status: Acute Code(s): J44.1 - CHRONIC OBSTRUCTIVE PULMONARY DISEASE W (ACUTE) EXACERBATION SNOMED Code(s): 299160254 (2) Right lower lobe pneumonia Current Visit: Yes Status: Acute Code(s): J18.1 - LOBAR PNEUMONIA, UNSPECIFIED ORGANISM SNOMED Code(s): 134274200 (3) MRSA pneumonia Narrative/Plan: 73-year-old male presents to hospital with increasing symptoms of shortness of breath and chest pain. His pain was radiating there was concerns to aneurysm and consequent computed tomography scan was performed. The patient had no evidence of aneurysm however right lower lobe pneumonia was noted on the computed tomography scan. He was initiated antibiotic therapy with Zosyn and vancomycin. With respiratory treatments and steroid therapy the patient felt considerably better and was discharged home. However within hours of his discharge he had an acute exacerbation & [facility] emergency center has been admitted since. Because of his failure to improve bronchoscopy was performed which revealed evidence of the purulent tracheal bronchitis but no tumors or masses. Culture reveals evidence of MRSA. The patient has been in vancomycin therapy and despite that has had lack of improvement of his symptoms and co nstantly has failed vancomycin therapy and will initiate Zyvox. This was may be discontinued. The viral studies are negative. I believe legionella is still pending and while that is occurring May continue the Levaquin for now. Discharge planning is in process. 08/30/2018 the patient is fortunately feeling somewhat better today. Still is not feeling well or nearly at his baseline but is encouraged. On the starting to feel slightly better. He still has purulent sputum production but his cough is improving feels less short of breath. Antibiotic therapy will continue with Zyvox. As he improves and becomes ready for discharge to home we'll transition this to oral and plan on this in the outpatient setting. He did follow-up with pulmonary critical care as well as infectious disease. 08/31/2018 patient is feeling that her today he is less short of breath, has improved cough and is mobilize his secretions better. He is with improved mood due to the fact that he is now starting to have some improvement. Will work with the discharge planners to ensure Zyvox is a covered oral benefit for him. 09/01/2018 patient has further improvement. Working with case management is to the utilization of Zyvox 600 mg orally twice per day in the home setting. He does have some lower extremity edema will ask for some Lasix in the morning his IV fluids have already been cutback. Current Visit: Yes Status: Acute Code(s): J15.212 - PNEUMONIA DUE TO METHICILLIN RESISTANT STAPHYLOCOCCUS AUREUS SNOMED Code(s): 966902320116239
[2018-09-02] MEDS: methylPREDNISolone SOD SUCCI 40 MG/ML 1 ML VIAL IV SCH ×4 (00:35→23:31)
[2018-09-02] MEDS: HYDROcodone/APAP 5-325MG 1 EACH TAB PO PRN ×3 (03:11→20:32)
[2018-09-02] MEDS ORDERED: FUROSEMIDE 10 MG/ML 2 ML VIAL IV ONE (07:00)
[2018-09-02] MEDS: IPRATROPIUM-ALBUTEROL 3 ML NEB INHALATION SCH ×4 (07:19→19:47)
[2018-09-02] MEDS: MAG HYDROX/AL HYDROX/SIMETH 30 ML CUP PO SCH ×3 (08:23→18:11)
[2018-09-02] MEDS: NAPROXEN 250 MG TAB PO SCH (08:23)
[2018-09-02] MEDS: LINEZOLID 600 MG TAB PO SCH ×2 (08:23→20:32)
[2018-09-02] MEDS: NICOTINE 14MG/24HR PATCH TRANSDERM SCH (08:23)
[2018-09-02] MEDS: ENOXAPARIN 40 MG/0.4 ML SYRINGE SQ SCH (08:23)
[2018-09-02] MEDS: SODIUM CHLORIDE 0.9% 1,000 ML IV SCH (08:44)
[2018-09-02] MEDS: NYSTATIN 100,000 UNIT/ML SUSP 500,000 UNIT/5 ML CUP PO SCH ×4 (10:02→20:32)
--- NOTE | 2018-09-02 11:26 | P.PN ---
Subjective Progress Note Date: 09/02/18 Principal diagnosis: Shortness of breath, cough, congestion, worsening right mid and lower lobe pneumonia This is a 73-year-old white male patient with history of advanced COPD, with baseline FEV1 of 31% of predicted, a chronic history of smoking, history of multiple comorbidities including chronic hepatitis C, essential hypertension, history of solitary lung nodule, and thoracic aortic aneurysm. Patient carries 17-faiv-byam smoking history, was down to half a pack a day. On a combination of Advair and Spiriva and nebulized bronchodilators on as-needed basis, not on any home oxygen. Patient follows with Dr. Anderson in the pulmonary clinic, recently lost his , and has been smoking a bit more since then. On 08/17/2018 patient presented to the emergency department for evaluation of right-sided chest pain, and right arm pain with onset of symptoms on Saturday, accompanied by shortness of breath. He is also complaining of cough and increased chest congestion. Denied any history of fevers or chills, denied any diaphoresis, abdominal pain, nausea or vomiting. No lower extremity swelling. Chest x-ray was completed showing COPD with patchy consolidation in the right mid and lower lung. CT angiography of the chest with intravenous contrast showed no evidence of aortic aneurysm or dissection, no pulmonary embolism, heterogeneous airspace disease at the right lower lobe posteriorly concerning for pneumonia, and moderate centrilobular emphysema with spiculated lesion at the superior segment of the right lower lobe measuring 1 cm. Patient has a left lower lobe nodule/spiculated density that is being followed by Dr. Anderson in outpatient basis. Patient has a descending aortic aneurysm measuring 4.5 x 4.4 cm previously measuring 4.[address] thoracic aorta from 08/17/2018, aorta measures a maximum dimension of 4.6 cm anterior-posterior. No evidence of aortic dissection. Labs were positive for evidence of leukocytosis, white blood cell count was 18.9, hemoglobin of 14.8, serum sodium was 135, potassium 4.0, chloride was 97, normal renal profile with a BUN of 20 creatinine 0.95. Troponin was negative 1, proBNP was 85. Patient was placed on antibiotic coverage with Zosyn and vancomycin, oral prednisone, he was given a liter bolus of fluid in the emergency department. Lactic acid was within normal limits at 1.2. We're consulted for right middle and lower lobe pneumonia. The patient is seen today 08/19/2018 in follow-up on the regular medical floor. He is currently sitting up at the bedside. Awake and alert in no acute distres s. The right-sided chest discomfort and wheezing. He continues with a productive cough. Sputum cultures pending. He is maintaining good O2 saturations in the 90s on 3 L/m per nasal cannula. He's been afebrile. Blood cultures reveal no growth thus far. White count 18.2. Hemoglobin 13.1. Crea tinine 0.92. He remains on DuoNeb inhalations, Symbicort, Zosyn and Levaquin, Habitrol. On 08/20/2016 patient seen in follow-up on medical surgical floor. Is awake and alert, calm and comfortable, pulse ox is 96% on 3 L, no fever or chills, lung sounds revealed coarse breath sounds and some crackles at bilateral bases, chest x-ray revealed right perihilar and right lower lobe infiltrate persistence. We'll continue current medical treatment, urine culture revealed Santa albicans only so far. Blood cultures was negative. Cotninue with the current antibiotic coverage in the form of Zosyn and Levaquin, occasional cough with production of sputum, no hemoptysis. No chest pain. On 08/22/2018 patient seen in follow-up on medical surgical floor. Clinical patient continues to improve, no worsening shortness of breath, he is on 4 L of oxygen with a pulse ox of 92%, afebrile, hemodynamically stable, lung sounds are positive for a few scattered rhonchi, no significant wheezing, no fever or chills, blood and sputum cultures were negative with exception of Santa albicans in the sputum culture that could be oral luis contamination. Patient continues on Zosyn and Levaquin, no worsening cough or congestion, or hemoptysis, no chest tenderness. Today's follow-up chest x-ray has been reviewed, showing improvement in the appearance of right medial lung base, and persistence of perihilar infiltrate. On 08/25/2018 patient seen medical surgical floor, after patient was discharged home on 08/23/2018 patient developed right lower chest wall pain, increased shortness of breath, and patient came back to the hospital for reevaluation. He states he had a low-grade fever, he had a cough with production of brownish colored sputum, during last admission patient was treated with Zosyn and Levaquin, and sputum cultures did not show any growth. Patient's chest x-ray appearance of the right mid and right lower lobe pneumonia was improving, patient was clinically improving and patient was subsequently discharged home. Denies smoking when he returned home. He was taking his medications as prescribed according to him. He was also feeling weak. Chest x-ray was obtained in the emergency department showing worsening right perihilar and right lower lobe pneumonia patient was admitted for IV antibiotics in the form of Levaquin and Zosyn. Overnight he has been afebrile, he is currently on 4 L of oxygen with a pulse ox of 92%, hemodynamically stable, is on breathing treatments, lung sounds are positive for coarse his paternal crackles over right mid and lower lobe, he was given IV fluids, admission blood work was reviewed showing white blood cell count of 17.8, hemoglobin of 15.4, sodium was 134, this is 4.6, chloride is 96, his BUN was 27, creatinine is 0.74, troponin was negative 1, proBNP was 247. On 08/26/2018 patient seen in follow-up on medical surgical floor. He is awake and alert, in no acute distress, he states right lower chest pain has improved, although has not completely resolved. He is on supplemental oxygen currently on 4 L, his pulse ox is 90-91%, hemodynamically stable, afebrile, no cough, no hemoptysis. Lung Sounds reveal coarse is paternal crackles over right mid and lower lung. Antibiotic coverage includes Zosyn, Levaquin and vancomycin, bronchoscopy with BAL has been scheduled for tomorrow, and patient is agreeable to proceed. On 08/27/2018 patient seen in follow-up on medical surgical floor. Still have not right-sided pleuritic chest pain, dyspneic. No fever or chills, had some night sweats the night before. Currently on 4 L of oxygen and his pulse ox is fluctuating between 86-91%, afebrile. Occasional cough, but no sputum production, blood culture showed no growth at 48 hours, sputum culture showed rare budding yeast, final cultures pending. She is on a combination of Levaquin, Zosyn and vancomycin, and patient scheduled for bronchoscopy with BAL today by Dr. Anderson On 08/28/2018 patient seen in follow-up on medical surgical floor. He states his breathing easier, right-sided chest pain has improved, he is currently on 4 L of oxygen with a pulse ox of 92%, today's chest x-ray was reviewed, showing early cavitation in the posterior right perihilar consolidation, otherwise improving right perihilar and lower lobe pneumonia. Bronchial wash cultures are pending, no fever or chills, patient is covered with a combination of Levaquin and Zosyn and vancomycin. Occasional cough, with no significant phlegm produc tion. White count is trending down, down to 14.1 on today's labs, hemoglobin is 12.1, sodium is 136, potassium is 4.3, chloride is 99, CO2 is 30, B1 is 26 and creatinine 0.62. On 08/29/2018 patient seen in follow-up on medical surgical floor. Overnight he had some coughing spells, not bringing up much sputum. Still has the right- sided chest discomfort with coughing, but seems to be improved since admission. BAL cultures are positive for presumptive staph aureus, urine cultures are positive for MRSA, and patient is covered with vancomycin, in addition to Levaquin and Zosyn. Today's chest x-ray shows persistent right mid to lower lung edema/infiltrate and persistent small bilateral pleural effusions with associated atelectasis and/or infiltrate. Afebrile, but feels warm to touch. Lung sounds are positive for coarse crackles over right lung, less prominent crackles on the left. Cytology of the BAL was negative The patient is seen today 08/30/2018 in follow-up on the regular medical floor. He is currently sitting up at the bedside. Awake and alert in no acute distress. He continues with a loose cough. Shortness of breath with minimal exertion. Currently on 5 L high flow nasal cannula to maintain O2 saturation in the low 90s. He's been afebrile. Hemodynamically stable. Sputum cultures positive for MRSA and Santa. Creatinine 0.61. He remains on Levaquin and linezolid. He remains on bronchodilators, IV Solu-Medrol, Habitrol. The patient is seen today 09/02/2018 in follow-up on the regular medical floor. He is currently awake and alert in no acute distress. Resting quite comfortably in bed. On 3 L nasal cannula. Last chest x-ray had revealed stable right perihilar infiltrate. He remains on Zyvox and Levaquin. Objective - Vital Signs Vital signs: Vital Signs Temp 97.6 F 09/02/18 08:04 Pulse 80 09/02/18 11:05 Resp 18 09/02/18 08:04 BP 136/72 09/02/18 08:04 Pulse Ox 94 L 09/02/18 01:59 Intake & Output 09/01/18 09/02/18 09/02/18 18:59 06:59 18:59 Intake Total 480 180 Output Total 300 Balance 480 -300 180 Intake: Oral 480 180 Output: Urine 300 Other: Voiding Method Toilet # Voids 2 - Exam GENERAL EXAM: Alert, 73-year-old male, currently on 3 L of oxygen with a pulse ox of 94%. HEAD: Normocephalic/atraumatic. EYES: Normal reaction of pupils, equal size. Conjunctiva pink, sclera white. NOSE: Clear with pink turbinates. THROAT: No erythema or exudates. NECK: No masses, no JVD, no thyroid enlargement, no adenopathy. CHEST: No chest wall deformity. Symmetrical expansion. LUNGS: Equal air entry with scattered rhonchi. CVS: Regular rate and rhythm, normal S1 and S2, no gallops, no murmurs, no rubs ABDOMEN: Soft, nontender. No hepatosplenomegaly, normal bowel sounds, no guarding or rigidity. EXTREMITIES: No clubbing, no edema, no cyanosis, 2+ pulses and upper and lower extremities. MUSCULOSKELETAL: Muscle strength and tone normal. SPINE: No scoliosis or deformity SKIN: No rashes CENTRAL NERVOUS SYSTEM: No focal deficits, tone is normal in all 4 extremities. PSYCHIATRIC: Alert and oriented -3. Appropriate affect. Intact judgment and insight. - Labs CBC & Chem 7: 09/01/18 07:58 09/01/18 07:58 Labs: Microbiology - Last 24 Hours (Table) 08/27/18 12:40 Fungal Culture - Preliminary Bronchial Washings - Right Santa albicans Assessment and Plan Assessment: Assessment: #1. Acute hypoxemic respiratory failure related to worsening right middle and right lower lobe pneumonia, healthcare acquired pneumonia, status post bronch oscopy with BAL, BAL and sputum cultures positive for MRSA . On 3 L nasal cannula. #2. Recent admission for acute right middle and right lower lobe pneumonia, and was treated with a combination of Zosyn and Levaquin, cultures did not show any growth, patient was showing radiographic and clinical improvement and was discharged home on 08/23/2018, after going home patient's started having increas ing shortness of breath, and right lower pleuritic chest pain and hence came back to the hospital within 24 hours of discharge #3. History of advanced COPD, stage III, with baseline FEV1 of 31% of p redicted, not on home oxygen #4. Chronic and ongoing nicotine dependence, patient carries [id number] smoking history #5. Hyperlipidemia #6. Chronic hepatitis C #7. Hypertension #8. Ascending thoracic aortic aneurysm, being followed in the outpatient basis, there was previously measuring 4.5 x 4.4 cm, thoracic CTA was completed showing dimension of 4.6 cm anterior-posterior at a maximum, with no evidence of aortic dissection #9. Chronic back pain #10. Solitary lung nodule in the left upper lobe previously measuring 8 mm in size, being followed in the outpatient basis by Dr. Anderson. Thoracic CTA chest also revealed a spiculated lesion at the superior segment of the right lower lobe measuring 1 cm #11. Psoriasis Plan: The patient was seen and evaluated by Dr. Sherman. He is cleared for discharge from the pulmonary standpoint. Currently on Levaquin and Zyvox. Switch to oral prednisone burst and taper. Follow-up in the office in 1-2 weeks' time. We'll repeat a chest x-ray then. He is encouraged to call sooner with any recurrence of symptoms or other questions or concerns. He is again educated regarding the importance of complete smoking cessation. I, the cosigning physician, performed a history & physical examination of the patient. Lungs sounds with bilateral scattered rhonchi. Maintaining good O2 saturations in the 90s on 3 L/m per nasal cannula. I discussed the assessment and plan of care with my nurse practitioner, Joi Bustamante. I attest to the above note as dictated by her.
--- NOTE | 2018-09-02 12:59 | CDI ---
Documentation Clarification Form Date: 09/02/2018 12:43:47 PM From: Laura BeckerORLY, CCDS Admit Date: 08/24/2018 9:37:00 PM Patient Name: Jim Victoria Visit Number: [id number] Discharge Date: ATTENTION: The Clinical Documentation Specialists (CDI) and [facility] Coding Staff appreciate your assistance in clarifying documentation. Please respond to the clarification below the line at the bottom and electronically sign. The CDI & [facility] Coding staff will review the response and follow-up if needed. Please note: Queries are made part of the Legal Health Record. If you have any questions, please contact the author of this message via ITS. Dr. Gerber Grissom: The patient presented with the following: Cough, fever, weakness, recent URI, palpitations, nausea & vomiting & SOB, diagnosed with MRSA pneumonia. History/Risk Factors: COPD, recurrent pneumonia, Amyloidosis, Hyperlipidemia & former smoker. Clinical Indicators: Presentation as above. Admission VS: T 98.3, P 121^, R 20, BP 112/73, PO 90 4Lnc. Patient's temp has dropped to 97.4*. Blood pressure fluctuating: low: 103/52 (08/29), high 163/84 (09/02) 08/24 Blood culture: neg. 08/26 Sputum culture: MRSA, Santa albicans. 08/27 Bronchial washings gram stain: MRSA, Santa albicans. Treatment: INH Albuterol, O2 3-5L nc, IV fluid rate 100, IV fluid boluses, IV Levaquin In your professional opinion, please clarify if these findings signify one of the following conditions, whether the condition is POA, and cause, if known: Sepsis ruled out Sepsis ruled in o Severe Sepsis o with or without Septic Shock Other, please specify Unable to determine Present on Admission o Yes o No Identify the (suspected) organism Link or clarify if there is associated (due to/with): Organ failure Shock (Last Revision: May 2017) MTDD
--- NOTE | 2018-09-02 13:03 | PN ---
PROGRESS NOTE CHIEF COMPLAINT: Persistent right lower lobe pneumonitis with MRSA and Santa albicans. HISTORY OF PRESENT ILLNESS: This gentleman is better. He is having a little bit less shortness of breath than he was. He has not developed thrush, which will be treated. He has also developed some edema in the left ankle. It does not seem to be inflamed. It does not seem to be tender. REVIEW OF SYSTEMS: He denies fever and chills, chest pain, abdominal pain, etc. PHYSICAL EXAMINATION: Chest still demonstrates extremely poor breath sounds with increased AP diameter and scattered rales and rhonchi throughout. There is particular decrease in the breath sounds on the right side. Cardiac exam is unremarkable. Abdomen is soft, nontender. Left ankle is swollen, but not erythematous. He has developed Santa albicans in the oral cavity. IMPRESSION: 1. Persistent right lower lobe pneumonitis. 2. Chronic obstructive pulmonary disease. 3. Swelling of left ankle, etiology unknown. 4. Thrush. 5. Left ankle edema and pain, etiology unknown. PLAN: 1. Oral Mycostatin suspension. 2. Evaluate the left ankle. 3. Increase activity. 4. Look toward possible discharge in the next several days. MMODL / IJN: [id number] /
[2018-09-02] MEDS: LEVOFLOXACIN 750 MG TAB PO SCH (20:32)
[2018-09-02] MEDS: KETOTIFEN 0.025% OPHTH DROPS 5 ML BTL BOTH EYES SCH (20:37)
--- NOTE | 2018-09-03 01:04 | P.PN ---
Subjective Progress Note Date: 09/02/18 73-year-old male who has multiple medical troubles that includes advanced COPD, coronary artery disease presents to Hospital many days ago with progressive shortness of breath and chest pain. Emergency center evaluations occurred including a CT angiogram because of his unique complaints of pain and pneumonia was identified. The patient was treated with respiratory treatments, steroids and antibiotic therapy and improved. He was discharged to home but within hours had an acute exacerbation of his shortness of breath and presented back to Hospital this been admitted ever since. Due to his lack of improvement he has been followed by pulmonary critical care and a bronchoscopy was performed. There is evidence of MRSA in the bronchoscopy specimen in the consult was requested. The patient has been treated with significant amounts of antibiotic therapy we have included Levaquin, Zosyn and vancomycin. Of note the patient's vancomycin CAMMY is 1 but the patient has ongoing significant symptoms and failure of improvement. 08/30/2018 the patient is feeling better today. He has less cough and less shortness of breath so he does not feel well. He is having no difficulty with the antibiotic change in that he is having no fevers or chills. He is having no rash, no nausea or emesis or diarrhea. 08/31/2018 the patient is tolerating antibiotic therapy change quite well. He believes he is less short of breath, he is mobilize some secretions and has improved energy level. 09/01/2018 patient is doing somewhat better. He has less short of breath, has less sputum production is tolerating the Zyvox without difficulty. He however has significant edema and it is uncomfortable from it. 09/02/2018 patient has improved. He certainly is less short of breath. Tolerating Zyvox without any difficulty such as nausea or emesis or rash. His edema is starting to improve with initiation of some Lasix therapy. Objective - Vital Signs Vital signs: Vital Signs Temp 97.4 F L 09/02/18 20:05 Pulse 107 H 09/02/18 21:40 Resp 16 09/02/18 21:40 BP 145/86 09/02/18 21:40 Pulse Ox 95 09/02/18 21:40 Intake & Output 09/02/18 09/02/18 09/03/18 06:59 18:59 06:59 Intake Total 405 Output Total 300 Balance -300 405 Intake: Oral 405 Output: Urine 300 Other: Voiding Method Toilet Toilet Toilet # Voids 2 - Exam 73-year-old male, of a small thin build, is not in severe respiratory distress HEENT: Anicteric conjunctiva are pink and moist nasal mucosa grossly intact without significant lesions, there is no thrush. Neck: The neck is supple without significant lymphadenopathy or thyromegaly. Lungs: Symmetric air entry is noted there is crackles at the right base Rykiel sounds at the right base no significant dullness no egophony scattered wheezes are noted Heart: Regular rate and rhythm with an audible S1-S2, soft S4. There is no significant murmur click or rub, PMI was nondisplaced. Abdomen: Positive bowel sounds soft and nontender without palpable masses or organomegaly. There was no guarding or rebound. Extremities: The upper extremities have excellent pulses they are symmetric, no significant petechiae or telangiectasia. No splinter hemorrhages were noted. Lower extremities have increased pedal edema but no significant ulcerations are seen Neuro: Awake alert oriented to person place and time. There are no acute new gross focal sensory motor deficits. - Labs CBC & Chem 7: 09/01/18 07:58 09/01/18 07:58 Labs: Laboratory Results WBC 12.7 k/uL (3.8-10.6) H 09/01/18 07:58 RBC 4.90 m/uL (4.30-5.90) 09/01/18 07:58 Hgb 14.1 gm/dL (13.0-17.5) 09/01/18 07:58 Hct 44.0 % (39.0-53.0) 09/01/18 07:58 MCV 89.9 fL (80.0-100.0) 09/01/18 07:58 MCH 28.7 pg (25.0-35.0) 09/01/18 07:58 MCHC 31.9 g/dL (31.0-37.0) 09/01/18 07:58 RDW 13.8 % (11.5-15.5) 09/01/18 07:58 Plt Count 398 k/uL (150-450) 09/01/18 07:58 Neutrophils % 89 % 09/01/18 07:58 Lymphocytes % 4 % 09/01/18 07:58 Monocytes % 6 % 09/01/18 07:58 Eosinophils % 0 % 09/01/18 07:58 Basophils % 0 % 09/01/18 07:58 Neutrophils # 11.3 k/uL (1.3-7.7) H 09/01/18 07:58 Lymphocytes # 0.5 k/uL (1.0-4.8) L 09/01/18 07:58 Monocytes # 0.7 k/uL (0-1.0) 09/01/18 07:58 Eosinophils # 0.0 k/uL (0-0.7) 09/01/18 07:58 Basophils # 0.0 k/uL (0-0.2) 09/01/18 07:58 PT 10.9 sec (9.0-12.0) 08/24/18 20:04 INR 1.0 (<1.2) 08/24/18 20:04 APTT 22.8 sec (22.0-30.0) 08/24/18 20:04 Sodium 133 mmol/L (137-145) L 09/01/18 07:58 Potassium 4.4 mmol/L (3.5-5.1) 09/01/18 07:58 Chloride 93 mmol/L (98-107) L 09/01/18 07:58 Carbon Dioxide 37 mmol/L (22-30) H 09/01/18 07:58 Anion Gap 3 mmol/L 09/01/18 07:58 BUN 17 mg/dL (9-20) 09/01/18 07:58 Creatinine 0.64 mg/dL (0.66-1.25) L 09/01/18 07:58 Est GFR (CKD-EPI)AfAm >90 (>60 ml/min/1.73 sqM) 09/01/18 07:58 Est GFR (CKD-EPI)NonAf >90 (>60 ml/min/1.73 sqM) 09/01/18 07:58 Glucose 100 mg/dL (74-99) H 09/01/18 07:58 Calcium 8.4 mg/dL (8.4-10.2) 09/01/18 07:58 Magnesium 1.9 mg/dL (1.6-2.3) 08/24/18 20:04 Total Bilirubin 0.7 mg/dL (0.2-1.3) 08/24/18 20:04 AST 22 U/L (17-59) 08/24/18 20:04 ALT 28 U/L (21-72) 08/24/18 20:04 Alkaline Phosphatase 51 U/L (38-126) 08/24/18 20:04 Troponin I <0.012 ng/mL (0.000-0.034) 08/24/18 20:04 NT-Pro-B Natriuret Pep 247 pg/mL 08/24/18 20:04 Total Protein 6.0 g/dL (6.3-8.2) L 08/24/18 20:04 Albumin 3.4 g/dL (3.5-5.0) L 08/24/18 20:04 Vancomycin Trough 15.7 ug/mL 08/27/18 08:09 Virus Source See Below 08/27/18 12:40 Viral Test See Below 08/27/18 12:40 Virus Analysis Interp See Below 08/27/18 12:40 Microbiology 08/27/18 12:40 Bronchial Washings - Right Fungal Culture - Preliminary Santa albicans 08/24/18 20:04 Blood Blood Culture - Final No Growth after 144 hours 08/27/18 12:40 Bronchial Washings - Right Gram Stain - Final 08/27/18 12:40 Bronchial Washings - Right Bronchial Washings Culture - Final Methicillin resist S. aureus Santa albicans 08/26/18 12:06 Sputum Gram Stain - Final 08/26/18 12:06 Sputum Sputum Culture - Final Methicillin resist S. aureus Santa albicans 08/27/18 12:40 Bronchial Washings - Right Acid Fast Bacilli Smear - Final 08/27/18 12:40 Bronchial Washings - Right Acid Fast Bacilli Culture - Preliminary Assessment and Plan (1) COPD exacerbation Current Visit: Yes Status: Acute Code(s): J44.1 - CHRONIC OBSTRUCTIVE PULMONARY DISEASE W (ACUTE) EXACERBATION SNOMED Code(s): 016299006 (2) Right lower lobe pneumonia Current Visit: Yes Status: Acute Code(s): J18.1 - LOBAR PNEUMONIA, UNSPEC IFIED ORGANISM SNOMED Code(s): 786356468 (3) MRSA pneumonia Narrative/Plan: 73-year-old male presents to hospital with increasing symptoms of shortness of breath and chest pain. His pain was radiating there was concerns to aneurysm and consequent computed tomography scan was performed. The patient had no evidence of aneurysm however right lower lobe pneumonia was noted on the computed tomography scan. He was initiated antibiotic therapy with Zosyn and vancomycin. With respiratory treatments and steroid therapy the patient felt considerably better and was discharged home. However within hours of his discharge he had an acute exacerbation & [facility] has been admitted since. Because of his failure to improve bronchoscopy was performed which revealed evidence of the purulent tracheal bronchitis but no tumors or masses. Culture reveals evidence of MRSA. The patient has been in vancomycin therapy and despite that has had lack of improvement of his symptoms and constantly has failed vancomycin therapy and will initiate Zyvox. This was may be discontinued. The viral studies are negative. I believe legionella is still pending and while that is occurring May continue the Levaquin for now. Disch arge planning is in process. 08/30/2018 the patient is fortunately feeling somewhat better today. Still is not feeling well or nearly at his baseline but is encouraged. On the starting to feel slightly better. He still has purulent sputum production but his cough is improving feels less short of breath. Antibiotic therapy will continue with Zyvox. As he improves and becomes ready for discharge to home we'll transition this to oral and plan on this in the outpatient setting. He did follow-up with pulmonary critical care as well as infectious disease. 08/31/2018 patient is feeling that her today he is less short of breath, has improved cough and is mobilize his secretions better. He is with improved mood due to the fact that he is now starting to have some improvement. Will work wit h the discharge planners to ensure Zyvox is a covered oral benefit for him. 09/01/2018 patient has further improvement. Working with case management is to the utilization of Zyvox 600 mg orally twice per day in the home setting. He does have some lower extremity edema will ask for some Lasix in the morning his IV fluids have already been cutback. 09/02/2018 patient does have further improvement. He had an excellent amount of urine output from the Lasix dose that was given. He has improved breathing and lower extremity edema has improved. Tolerating antibiotic therapy well. Case management is working with his pharmacy to ensure that Zyvox is a covered benefit for home. Current Visit: Yes Status: Acute Code(s): J15.212 - PNEUMONIA DUE TO METHICILLIN RESISTANT STAPHYLOCOCCUS AUREUS SNOMED Code(s): 431260322636250
[2018-09-03] MEDS: traMADol 50 MG TAB PO PRN (03:58)
[2018-09-03] MEDS: IPRATROPIUM-ALBUTEROL 3 ML NEB INHALATION SCH ×4 (08:42→20:02)
[2018-09-03] MEDS: NICOTINE 14MG/24HR PATCH TRANSDERM SCH (08:57)
[2018-09-03] MEDS: MAG HYDROX/AL HYDROX/SIMETH 30 ML CUP PO SCH ×3 (09:00→17:35)
[2018-09-03] MEDS: methylPREDNISolone SOD SUCCI 40 MG/ML 1 ML VIAL IV SCH ×3 (09:00→23:35)
[2018-09-03] MEDS: ENOXAPARIN 40 MG/0.4 ML SYRINGE SQ SCH (09:02)
[2018-09-03] MEDS: LINEZOLID 600 MG TAB PO SCH ×2 (09:03→22:16)
[2018-09-03] MEDS: NAPROXEN 250 MG TAB PO SCH (09:04)
[2018-09-03] MEDS: NYSTATIN 100,000 UNIT/ML SUSP 500,000 UNIT/5 ML CUP PO SCH ×4 (09:06→21:05)
[2018-09-03] MEDS: HYDROcodone/APAP 5-325MG 1 EACH TAB PO PRN ×3 (12:32→22:42)
--- NOTE | 2018-09-03 15:17 | P.PN ---
Subjective Progress Note Date: 09/03/18 Principal diagnosis: Shortness of breath, cough, congestion, worsening right mid and lower lobe pneumonia This is a 73-year-old white male patient with history of advanced COPD, with baseline FEV1 of 31% of predicted, a chronic history of smoking, history of multiple comorbidities including chronic hepatitis C, essential hypertension, history of solitary lung nodule, and thoracic aortic aneurysm. Patient carries [id number]-[id number] smoking history, was down to half a pack a day. On a combination of Advair and Spiriva and nebulized bronchodilators on as-needed basis, not on any home oxygen. Patient follows with Dr. Anderson in the pulmonary clinic, recently lost his , and has been smoking a bit more since then. On 08/17/2018 patient presented to the emergency department for evaluation of right-sided chest pain, and right arm pain with onset of symptoms on Saturday, accompanied by shortness of breath. He is also complaining of cough and increased chest congestion. Denied any history of fevers or chills, denied any diaphoresis, abdominal pain, nausea or vomiting. No lower extremity swelling. Chest x-ray was completed showing COPD with patchy consolidation in the right mid and lower lung. CT angiography of the chest with intravenous contrast showed no evidence of aortic aneurysm or dissection, no pulmonary embolism, heterogeneous airspace disease at the right lower lobe posteriorly concerning for pneumonia, and moderate centrilobular emphysema with spiculated lesion at the superior segment of the right lower lobe measuring 1 cm. Patient has a left lower lobe nodule/spiculated density that is being followed by Dr. Anderson in outpatient basis. Patient has a descending aortic aneurysm measuring 4.5 x 4.4 cm previously measuring 4.[address] thoracic aorta from 08/17/2018, aorta measures a maximum dimension of 4.6 cm anterior-posterior. No evidence of aortic dissection. Labs were positive for evidence of leukocytosis, white blood cell count was 18.9, hemoglobin of 14.8, serum sodium was 135, potassium 4.0, chloride was 97, normal renal profile with a BUN of 20 creatinine 0.95. Troponin was negative 1, proBNP was 85. Patient was placed on antibiotic coverage with Zosyn and vancomycin, oral prednisone, he was given a liter bolus of fluid in the emergency department. Lactic acid was within normal limits at 1.2. We're consulted for right middle and lower lobe pneumonia. The patient is seen today 08/19/2018 in follow-up on the regular medical floor. He is currently sitting up at the bedside. Awake and alert in no acute distres s. The right-sided chest discomfort and wheezing. He continues with a productive cough. Sputum cultures pending. He is maintaining good O2 saturations in the 90s on 3 L/m per nasal cannula. He's been afebrile. Blood cultures reveal no growth thus far. White count 18.2. Hemoglobin 13.1. Crea tinine 0.92. He remains on DuoNeb inhalations, Symbicort, Zosyn and Levaquin, Habitrol. On 08/20/2016 patient seen in follow-up on medical surgical floor. Is awake and alert, calm and comfortable, pulse ox is 96% on 3 L, no fever or chills, lung sounds revealed coarse breath sounds and some crackles at bilateral bases, chest x-ray revealed right perihilar and right lower lobe infiltrate persistence. We'll continue current medical treatment, urine culture revealed Santa albicans only so far. Blood cultures was negative. Cotninue with the current antibiotic coverage in the form of Zosyn and Levaquin, occasional cough with production of sputum, no hemoptysis. No chest pain. On 08/22/2018 patient seen in follow-up on medical surgical floor. Clinical patient continues to improve, no worsening shortness of breath, he is on 4 L of oxygen with a pulse ox of 92%, afebrile, hemodynamically stable, lung sounds are positive for a few scattered rhonchi, no significant wheezing, no fever or chills, blood and sputum cultures were negative with exception of Santa albicans in the sputum culture that could be oral luis contamination. Patient continues on Zosyn and Levaquin, no worsening cough or congestion, or hemoptysis, no chest tenderness. Today's follow-up chest x-ray has been reviewed, showing improvement in the appearance of right medial lung base, and persistence of perihilar infiltrate. On 08/25/2018 patient seen medical surgical floor, after patient was discharged home on 08/23/2018 patient developed right lower chest wall pain, increased shortness of breath, and patient came back to the hospital for reevaluation. He states he had a low-grade fever, he had a cough with production of brownish colored sputum, during last admission patient was treated with Zosyn and Levaquin, and sputum cultures did not show any growth. Patient's chest x-ray appearance of the right mid and right lower lobe pneumonia was improving, patient was clinically improving and patient was subsequently discharged home. Denies smoking when he returned home. He was taking his medications as prescribed according to him. He was also feeling weak. Chest x-ray was obtained in the emergency department showing worsening right perihilar and right lower lobe pneumonia patient was admitted for IV antibiotics in the form of Levaquin and Zosyn. Overnight he has been afebrile, he is currently on 4 L of oxygen with a pulse ox of 92%, hemodynamically stable, is on breathing treatments, lung sounds are positive for coarse his paternal crackles over right mid and lower lobe, he was given IV fluids, admission blood work was reviewed showing white blood cell count of 17.8, hemoglobin of 15.4, sodium was 134, this is 4.6, chloride is 96, his BUN was 27, creatinine is 0.74, troponin was negative 1, proBNP was 247. On 08/26/2018 patient seen in follow-up on medical surgical floor. He is awake and alert, in no acute distress, he states right lower chest pain has improved, although has not completely resolved. He is on supplemental oxygen currently on 4 L, his pulse ox is 90-91%, hemodynamically stable, afebrile, no cough, no hemoptysis. Lung Sounds reveal coarse is paternal crackles over right mid and lower lung. Antibiotic coverage includes Zosyn, Levaquin and vancomycin, bronchoscopy with BAL has been scheduled for tomorrow, and patient is agreeable to proceed. On 08/27/2018 patient seen in follow-up on medical surgical floor. Still have not right-sided pleuritic chest pain, dyspneic. No fever or chills, had some night sweats the night before. Currently on 4 L of oxygen and his pulse ox is fluctuating between 86-91%, afebrile. Occasional cough, but no sputum production, blood culture showed no growth at 48 hours, sputum culture showed rare budding yeast, final cultures pending. She is on a combination of Levaquin, Zosyn and vancomycin, and patient scheduled for bronchoscopy with BAL today by Dr. Anderson On 08/28/2018 patient seen in follow-up on medical surgical floor. He states his breathing easier, right-sided chest pain has improved, he is currently on 4 L of oxygen with a pulse ox of 92%, today's chest x-ray was reviewed, showing early cavitation in the posterior right perihilar consolidation, otherwise improving right perihilar and lower lobe pneumonia. Bronchial wash cultures are pending, no fever or chills, patient is covered with a combination of Levaquin and Zosyn and vancomycin. Occasional cough, with no significant phlegm produc tion. White count is trending down, down to 14.1 on today's labs, hemoglobin is 12.1, sodium is 136, potassium is 4.3, chloride is 99, CO2 is 30, B1 is 26 and creatinine 0.62. On 08/29/2018 patient seen in follow-up on medical surgical floor. Overnight he had some coughing spells, not bringing up much sputum. Still has the right- sided chest discomfort with coughing, but seems to be improved since admission. BAL cultures are positive for presumptive staph aureus, urine cultures are positive for MRSA, and patient is covered with vancomycin, in addition to Levaquin and Zosyn. Today's chest x-ray shows persistent right mid to lower lung edema/infiltrate and persistent small bilateral pleural effusions with associated atelectasis and/or infiltrate. Afebrile, but feels warm to touch. Lung sounds are positive for coarse crackles over right lung, less prominent crackles on the left. Cytology of the BAL was negative On 08/31/2018 patient was seen in follow-up on medical surgical floor. he is awake and alert, in no acute distress. Right-sided chest pain has subsided, still some residual discomfort on the right with episodes of coughing, otherwise no distress, occasional cough, with no sputum production, patient is working on his incentive spirometer, currently on 4 L of oxygen, his pulse ox is 95%, he has been ambulating within the room, tolerating imbibition well, no hemoptysis, no fever or chills. Currently on a combination of Levaquin and Zyvox for evidence of MRSA pneumonia. Viral culture of the BAL was negative, cytology was negative. On 09/01/2018 patient seen in follow-up on medical surgical floor. No major distress, she remains on supplemental oxygen, currently on 3 L with a pulse ox of 94-95%, he is afebrile, hemodynamically stable, occasional nonproductive cough, no sputum production, no fever or chills, sounds are positive for right posterior lower lobe coarse crackles, no significant wheezing. he is on a combination Levaquin and Zyvox for MRSA pneumonia, today's chest x-ray shows improvement in the appearance of right-sided pneumonia, right perihilar infiltrate. Right-sided chest pain is only with coughing, overall improving, patient has been ambulated but has not been able to ambulate very far. No acute events overnight, today's labs have been reviewed, white blood cell count is 12.7, hemoglobin is 14.1, serum sodium is 133, potassium is 4.4, chloride is 93, CO2 is 37, BUN 17 creatinine 0.64. Clinically stable On 09/03/2018 patient seen in follow-up on medical surgical floor. He is calm and comfortable, no acute distress, appearing the patient sustained a fall last night, no acute injuries, today he is awake and alert, in no acute distress, currently on 3 L of oxygen and the pulse ox of 96%, he is afebrile, no fever or chills, vital signs are stable. She is being treated for MRSA pneumonia, currently is on a combination of colon and Zyvox, no new chest x-rays today, infectious disease is following. Clinically patient is improving, minimal crackles in the right mid to lower lobe, otherwise clear breath sounds. no new blood work today Objective - Vital Signs Vital signs: Vital Signs Temp 97.8 F 09/03/18 06:53 Pulse 79 09/03/18 12:17 Resp 16 09/03/18 11:13 BP 152/73 09/03/18 06:53 Pulse Ox 96 09/03/18 06:53 Intake & Output 09/02/18 09/03/18 09/03/18 18:59 06:59 18:59 Intake Total 405 240 Output Total 400 675 Balance 405 -400 -435 Intake: Oral 405 240 Output: Urine 400 675 Other: Voiding Method Toilet Urinal Toilet Urinal # Voids 2 1 2 # Bowel Movements 1 - Exam GENERAL EXAM: Alert, pleasant, 73-year-old white male, currently on 3 L of oxygen with a pulse ox of 95% comfortable in no apparent distress. HEAD: Normocephalic/atraumatic. EYES: Normal reaction of pupils, equal size. Conjunctiva pink, sclera white. NOSE: Clear with pink turbinates. THROAT: No erythema or exudates. NECK: No masses, no JVD, no thyroid enlargement, no adenopathy. CHEST: No chest wall deformity. Symmetrical expansion. LUNGS: Equal air entry with coarse inspiratory crackles over right lower lobe and right middle lobe CVS: Regular rate and rhythm, normal S1 and S2, no gallops, no murmurs, no rubs ABDOMEN: Soft, nontender. No hepatosplenomegaly, normal bowel sounds, no guarding or rigidity. EXTREMITIES: No clubbing, no edema, no cyanosis, 2+ pulses and upper and lower extremities. MUSCULOSKELETAL: Muscle strength and tone normal. SPINE: No scoliosis or deformity SKIN: No rashes CENTRAL NERVOUS SYSTEM: Alert and oriented -3. No focal deficits, tone is normal in all 4 extremities. PSYCHIATRIC: Alert and oriented -3. Appropriate affect. Intact judgment and insight. - Labs CBC & Chem 7: 09/01/18 07:58 09/01/18 07:58 Assessment and Plan Plan: Assessment: #1. Acute hypoxemic respiratory failure related to worsening right middle and right lower lobe pneumonia, healthcare acquired pneumonia, status post bronchoscopy with BAL, BAL and sputum cultures positive for MRSA, viral cultures and cytology are negative #2. Recent admission for acute right middle and right lower lobe pneumonia, and was treated with a combination of Zosyn and Levaquin, cultures did not show any growth, patient was showing radiographic and clinical improvement and was discharged home on 08/23/2018, after going home patient's started having increasing shortness of breath, and right lower pleuritic chest pain and hence came back to the hospital within 24 hours of discharge #3. History of advanced COPD, stage III, with baseline FEV1 of 31% of predicted, not on home oxygen #4. Chronic and ongoing nicotine dependence, patient carries [id number] smoking history #5. Hyperlipidemia #6. Chronic hepatitis C #7. Hypertension #8. Ascending thoracic aortic aneurysm, being followed in the outpatient basis, there was previously measuring 4.5 x 4.4 cm, thoracic CTA was completed showing dimension of 4.6 cm anterior-posterior at a maximum, with no evidence of aortic dissection #9. Chronic back pain #10. Solitary lung nodule in the left upper lobe previously measuring 8 mm in size, being followed in the outpatient basis by Dr. Anderson. Thoracic CTA chest also revealed a spiculated lesion at the superior segment of the right lower lobe measuring 1 cm #11. Psoriasis Plan: Patient is stable from pulmonary perspective, clinically improving, crease activity as tolerated, did sustain a fall last night, no apparent injuries, no complaints of pain, shortness of breath, chest pain, no hemoptysis. Patient is on Levaquin and Zyvox for MRSA pneumonia. No new chest x-ray today, no fever or chills. From pulmonary perspective patient could be considered for discharge home today, follow up with Dr. Murrieta in 7-10 days I performed a history & physical examination of the patient and discussed their management with my nurse practitioner, Ashtyn Grigsby. I reviewed the nurse practitioner's note and agree with the documented findings and plan of care. Lung sounds are positive for coarse right lower lobe crackles. The findings and the impression was discussed with the patient. I attest to the documentation by the nurse practitioner. Time with Patient: Less than 30
--- NOTE | 2018-09-03 15:38 | PN ---
PROGRESS NOTE DATE OF SERVICE: 09/02/2018 CHIEF COMPLAINT: Pneumonitis. HISTORY OF PRESENT ILLNESS: This gentleman is slowly improving. Breathing seems to be improving. He fell last night and states he has no injuries. However, he fell is not clear. He was just found on the floor. REVIEW OF SYSTEMS: He is still quite dyspneic and having trouble moving about without becoming extremely short of breath. The situation was discussed with his family and his daughter who has durable [id number]. Requested that he be seen by Psychiatry for depression and be considered for possible inpatient rehab. These referrals will be placed. PHYSICAL EXAM: Breath sounds are still extremely poor with rales and rhonchi on the right and vesicular breath sounds in the right anterior and posterior chest. Cardiac exam is normal. Abdomen is soft, nontender. Extremities are normal. IMPRESSION: 1. Right perihilar and right lower lobe pneumonitis. 2. Severe chronic obstructive pulmonary disease. 3. Hypertension. 4. Amyloidosis. PLAN: He will possibly be discharged tomorrow, but a referral will be placed for consideration of a skilled nursing bed for physical therapy. He will also be referred to Psychiatry. MMODL / IJN: [id number] /
--- NOTE | 2018-09-03 16:17 | P.CN ---
Psychiatric Consult - . Consult date: 09/03/18 Consult:: Identification: Patient is a 73-year-old male who is admitted with MRSA pneumonia Reason for Consult: Depression History of Present Illness: Patient's chart was reviewed, the patient was seen and interviewed in his room as daughter was present who provided additional information. Patient states that his on July 07 at home, suffering a heart attack. States that he hadn't been feeling physically well prior to his 's and states that shortly after her he became increasingly ill. He states that he was admitted to the hospital and discharged and readmitted. He states that he is feeling much better now, states that he's been eating well and breathing much better. He states that he's been living with his son, his son's and their 19-year-old son. Per his daughter who was present in the room both her brother and [id number] have substance use issues. They have been supported by their parents, financially and the patient states that his was doing all of the cooking and cleaning. They have also been caring for their 19-year-old grandson. Patient states that he always thought that he would precede his and and was shocked when she first. He states that he was able to arrange all of the arrangements, and also had to deal with a home in [place] that belonged to her parents that they had been maintaining for over 10 years. He states his had no will and he had to hire attorneys in this state and in [place] to deal with the probate. He states that most of that has been resolved now and he was glad that he could get this completed before he had to come into the hospital. Patient states that he has never been treated for any psychiatric problems in the past, does not endorse a prior history of depressive, manic or psychotic symptoms and no prior history of suicidal thoughts or attempts. He states that other than feeling physically ill he has been grieving his 's loss but has been caring for himself at home, caring for his ADLs and was eating. He states his sleep. Has not been good but he is also been leaving his nicotine patch on at night. Patient states that he is not currently feeling depressed, hopeless or helpless, not feeling suicidal, is sad about the loss of his and is aware of a grief counseling group near him. His daughter who is present stated that they are in the process of having her brother and [id number] evicted from the home, that her older sister who lives close to the patient will be assisting their father. Her older sister apparently also works in the [employer] industry. Per the patient his home and all of the accommodations that he needs, he feels comfortable there. States that he is also had a visiting nurse come in the past. Patient had no other concerns at this time. Past Psychiatric History: Patient has no prior history of psychiatric treatment either on an inpatient or outpatient basis and has never been placed on any psychotropic medication and has no history of suicide attempts Past Medical/Surgical History: Patient has hyperlipidemia, COPD, status post bilateral hip replacement, status post laminectomy Social History: Patient was born and raised in [place], he served in the [employer] for 4 years and met his when he was stationed in [place]. They were for 48 years and had 6 children and have 12 grandchildren. Patient works for over 35 years in the [employer] for the [employer]. He states that he has no financial concerns at this time and the living situation is as stated above. Patient had no concerns about returning to his home he states that it is accessible for him. Patient also has a dog at home. Substance Use History: Patient has no alcohol or drug use history. Patient states that he will continue to use nicotine patches once he is discharged Mental status: Appearance/Attitude: Patient is sitting in a recliner in his hospital room, has oxygen on and states he is feeling comfortable, made eye contact and was cooperative Behavior: Patient did not display any psychomotor agitation or retardation Speech/Language: Patient's speech was spontaneous and of normal volume and rhythm and he is coherent Thought Process: Patient was goal-directed there is no evidence of loose association or flight of ideas Thought Content: Patient denied any auditory or visual hallucinations no delusions or paranoid ideation were elicited. Patient states that he is grieving the loss of his , he states that he thought he would precede his in and had made plans for her to be comfortable financially. Patient states that he is been handling all the arrangements related to probate issues, he states that he is made his to daughter's pabon of district attorney that they can assist him. Patient states that he has no concerns about returning home. Patient states that he is caring for his ADLs at home reported some difficulty sleeping here but realized that he left his nicotine patch throughout the night. States that he ate well today. Suicidal/Homicidal Ideation: Patient denied any current suicidal or homicidal ideation Sensorium/Cognition: Patient is alert and oriented to person, place and time and his recent and remote memory are grossly intact Mood/Affect: Patient's mood is pleasant and his affect is appropriate Insight/Judgment: Patient's insight and judgment are intact Assessment: Patient's in June and patient is not endorsing any depressive symptoms psychotic symptoms, manic symptoms or anxiety symptoms, patient has been coping with the of his , has been handling probate issues related to her . He has made his 2 daughters power of district attorney to assist him, his daughter states that they have filed eviction papers for her brother and his from their parents home and will also consider getting a protection order should this be needed. Patient is comfortable returning to his home stating that it is accessible for him. Patient's 19-year-old grandson will continue to stay with him unless it becomes too much and his older daughter who lives close by [place] that responsibility. Patient is aware of a grief route that is close by his home. Patient has no history of any psychiatric treatment in the past on an inpatient or outpatient basis and no history of suicide attempts. Diagnosis: Uncomplicated bereavement Plan: Patient does not require any psychotropic medication at this time as he is going through an uncomplicated bereavement. Patient was advised that he should remove his nicotine patch at night when he goes to bed in place a new one the next morning. Patient was also advised that should his sleep not be restful at home that he could try melatonin beginning at 1 mg and increasing it slowly to 5 mg maximum 1 hour prior to sleep. Patient felt comfortable returning to his home stating that accessibility is not an issue at his home. Patient states that currently he feels comfortable with his grandson staying there. Patient's daughter lives close by and is also in the home healthcare field and will also be providing assistance to the patient. Patient was encouraged to follow up with grief counseling should he find it necessary. If there are any further questions or concerns please don't hesitate to contact me, I will sign off the case at this time.
[2018-09-03] MEDS: KETOTIFEN 0.025% OPHTH DROPS 5 ML BTL BOTH EYES SCH (21:05)
[2018-09-03] MEDS: LEVOFLOXACIN 750 MG TAB PO SCH (21:05)
[2018-09-03 23:41] LABS: HCT 39.4 % (39.0-53.0); HGB 12.7 gm/dL (13.0-17.5); MCH 28.6 pg (25.0-35.0); MCHC 32.2 g/dL (31.0-37.0); MCV 88.9 fL (80.0-100.0); Mean Platelet Volume 7.6; Platelet Count 337 k/uL (150-450); RBC 4.43 m/uL (4.30-5.90); RDW 15.2 % (11.5-15.5); WBC 14.1 k/uL (3.8-10.6)
--- NOTE | 2018-09-04 00:04 | XR ---
EXAM: XR Chest, 2 Views CLINICAL HISTORY: ITS.REASON XR Reason: sepsis alert TECHNIQUE: Frontal and lateral views of the chest. COMPARISON: Chest radiograph on 09/01/2018 FINDINGS: Hardware: None. Lungs/pleura: Persistent patchy opacities in the right lower lobe. Small bilateral pleural effusions. Left basilar atelectasis. Hyperinflation of the lungs. Heart/mediastinum: Normal. No cardiomegaly. Soft tissues: Unremarkable. Bones: No acute fracture. Degenerative changes of the acromioclavicular joints. Upper abdomen: Normal. IMPRESSION: Persistent patchy opacities in the right lower lobe, concerning for pneumonia. Persistent small bilateral pleural effusions.
[2018-09-04] MEDS ORDERED: SODIUM CHLORIDE 0.9% 1,000 ML IV ONE (01:31)
[2018-09-04] MEDS: HYDROcodone/APAP 5-325MG 1 EACH TAB PO PRN ×3 (05:55→18:03)
[2018-09-04] MEDS: IPRATROPIUM-ALBUTEROL 3 ML NEB INHALATION SCH ×4 (07:07→20:20)
--- NOTE | 2018-09-04 07:24 | MISC ---
MISCELLANOUS REPORT QUERY Sepsis is ruled out. MMODL / IJN: [id number] /
[2018-09-04 07:47] LABS: Basophils % (A) 0 %; Eosinophils % (A) 0 %; HGB 11.9 gm/dL (13.0-17.5); Lymphocytes # (A) 0.4 k/uL (1.0-4.8); Lymphocytes % (A) 4 %; MCH 28.4 pg (25.0-35.0); MCHC 32.1 g/dL (31.0-37.0); MCV 88.5 fL (80.0-100.0); Mean Platelet Volume 6.6; Monocytes # (A) 0.3 k/uL (0-1.0); Monocytes % (A) 3 %; Neutrophils # (A) 9.6 k/uL (1.3-7.7); Neutrophils % (A) 93 %; Platelet Count 344 k/uL (150-450); RBC 4.18 m/uL (4.30-5.90); RDW 14.1 % (11.5-15.5); WBC 10.3 k/uL (3.8-10.6)
[2018-09-04 07:58] LABS: ALT 37 U/L (21-72); AST 17 U/L (17-59); African American GFR (CKD) >90 (>60 ml/min/1.73 sqM); Albumin 2.6 g/dL (3.5-5.0); Alkaline Phosphatase 38 U/L (38-126); Anion Gap 3 mmol/L; Blood Urea Nitrogen 23 mg/dL (9-20); Calcium 8.1 mg/dL (8.4-10.2); Carbon Dioxide 34 mmol/L (22-30); Chloride 95 mmol/L (98-107); Glucose 114 mg/dL (74-99); Potassium 4.9 mmol/L (3.5-5.1); Sodium 132 mmol/L (137-145); Total Bilirubin 0.7 mg/dL (0.2-1.3); Total Protein 4.7 g/dL (6.3-8.2)
[2018-09-04] MEDS: NICOTINE 14MG/24HR PATCH TRANSDERM SCH (08:32)
[2018-09-04] MEDS: MAG HYDROX/AL HYDROX/SIMETH 30 ML CUP PO SCH ×3 (08:33→17:59)
[2018-09-04] MEDS: methylPREDNISolone SOD SUCCI 40 MG/ML 1 ML VIAL IV SCH ×3 (08:33→23:25)
[2018-09-04] MEDS: ENOXAPARIN 40 MG/0.4 ML SYRINGE SQ SCH (08:33)
[2018-09-04] MEDS: NAPROXEN 250 MG TAB PO SCH (08:35)
[2018-09-04] MEDS: LINEZOLID 600 MG TAB PO SCH ×2 (08:35→21:31)
[2018-09-04] MEDS: NYSTATIN 100,000 UNIT/ML SUSP 500,000 UNIT/5 ML CUP PO SCH ×4 (08:36→21:31)
--- NOTE | 2018-09-04 12:32 | PN ---
PROGRESS NOTE CHIEF COMPLAINT: Pneumonitis. HISTORY OF PRESENT ILLNESS: This gentleman is doing well then during the night he developed an episode tachycardia. He had no fever. He did have slight increase in shortness of breath. Studies were ordered and his lactic acid was elevated. He has had no chest pain, sputum production, urinary complaints, etc. PHYSICAL EXAMINATION: Chest demonstrates decreased breath sounds throughout due to his emphysema. Cardiac exam is normal and heart rate is now down into the 80s. ABDOMEN: Soft, nontender. Extremities are normal. IMPRESSION: 1. Unexplained tachycardia. 2. ? Sepsis. PLAN: Studies been ordered including a chest x-ray which demonstrated very little change, EKG, UA, blood work including D-dimer and BNP. PHYSICAL EXAMINATION: Vital signs are normal at this time. Chest demonstrates poor breath sounds with emphysema and still has occasional rales and rhonchi in the right chest as well as some dullness to percussion and vesicular breath sounds. IMPRESSION: 1. Right lower lobe pneumonitis. 2. New episode of sepsis?.. PLAN: Await for studies to be returned and any recommendations from Infectious Disease after cultures are obtained. MMODL / IJN: [id number] /
[2018-09-04] MEDS: KETOTIFEN 0.025% OPHTH DROPS 5 ML BTL BOTH EYES SCH (21:31)
[2018-09-04] MEDS: traMADol 50 MG TAB PO PRN (21:31)
[2018-09-05] MEDS: HYDROcodone/APAP 5-325MG 1 EACH TAB PO PRN ×3 (00:44→16:48)
[2018-09-05 07:11] VITALS: TEMP 97.8
[2018-09-05] MEDS: IPRATROPIUM-ALBUTEROL 3 ML NEB INHALATION SCH ×3 (07:19→15:29)
[2018-09-05] MEDS: ENOXAPARIN 40 MG/0.4 ML SYRINGE SQ SCH (09:06)
[2018-09-05] MEDS: NICOTINE 14MG/24HR PATCH TRANSDERM SCH (09:06)
[2018-09-05] MEDS: MAG HYDROX/AL HYDROX/SIMETH 30 ML CUP PO SCH ×2 (09:06→12:19)
[2018-09-05] MEDS: NYSTATIN 100,000 UNIT/ML SUSP 500,000 UNIT/5 ML CUP PO SCH ×2 (09:06→12:19)
[2018-09-05] MEDS: methylPREDNISolone SOD SUCCI 40 MG/ML 1 ML VIAL IV SCH ×2 (09:06→16:48)
[2018-09-05] MEDS: NAPROXEN 250 MG TAB PO SCH (09:07)
[2018-09-05] MEDS: LINEZOLID 600 MG TAB PO SCH (09:08)
--- NOTE | 2018-09-05 11:05 | PN ---
PROGRESS NOTE CHIEF COMPLAINT: Right lower lobe pneumonitis, COPD. HISTORY OF PRESENT ILLNESS: This gentleman is doing well and can probably go home. He did have an elevated D-dimer and a CTA of the chest will be ordered. Assuming that it does not demonstrate pulmonary embolus or emboli, he will go home today. PHYSICAL EXAM: Breath sounds are still decreased at the right base with a vesicular component. Cardiac exam is normal. Abdomen is soft. IMPRESSION: 1. Right perihilar and right lower lobe pneumonitis. 2. Chronic obstructive pulmonary disease. 3. Possible right lower lobe nodule. PLAN: Await results of CTA and probably home today. MMODL / IJN: [id number] /
--- NOTE | 2018-09-05 12:06 | CT ---
EXAMINATION TYPE: CT chest angio for PE DATE OF EXAM: 09/05/2018 COMPARISON: 03/03/2018 HISTORY: Difficulty breathing CT DLP: 224.1 mGycm CONTRAST: CT chest with contrast and 3D reconstruction with MIP imaging is performed with IV Contrast, patient injected with 100 mL of Isovue 370. Contrast-enhanced CT of the chest was performed through the course of the pulmonary arteries with gris g and mediastinal window settings submitted. 3D reconstruction with MIP imaging was also performed. PULMONARY ARTERIES: The pulmonary arteries and their major tributaries are patent. I do not see yoon dence for sizable filling defect to suggest pulmonary embolic process. LUNGS: Moderate sized new cavitary infiltrate right lower lobe. Left lung is clear. Mild basilar atel ectasis. Small pleural effusions noted bilaterally. MEDIASTINUM: Thoracic aorta is of normal caliber,however, evaluation is limited given timing of the contrast bolus. If there is concern for thoracic aortic pathology consider JOMAR. Correlate clinicall y . The heart is not enlarged. No evidence for mediastinal mass. No mediastinal lymph nodes greater than 1cm. HILAR STRUCTURES: No evidence for mass. No hilar lymph nodes greater than 1 cm. UPPER ABDOMEN: No significant abnormality is seen. IMPRESSION: 1. No evidence for Pulmonary embolism at this time. 2.Moderate sized new cavitary infiltrate right lower lobe. Correlate for pneumonia. Mass is not exclu ded.
[2018-09-05 14:14] VITALS: BP 123/73; RESP 16
[2018-09-05 15:41] VITALS: PULSE 88
--- NOTE | 2018-09-05 18:08 | DS ---
DISCHARGE SUMMARY CHIEF COMPLAINT: Fever, chills, shortness of breath and right lower lobe pneumonitis. HISTORY OF PRESENT ILLNESS/PHYSICAL EXAMINATION: Details of this man's history and physical can be found in his initial workup. LABORATORY STUDIES: While he was in a hospital he had laboratory studies, details of which can be found in the laboratory section of his chart. COURSE IN THE HOSPITAL: After admission he was placed on bedrest, started again on IV fluids, IV antibiotics and updrafts. He was seen and followed by Pulmonology and Infectious Disease. Initially his white count was quite high and his pneumonitis was very persistent. He underwent bronchoscopy with suction. No pathology was seen. However, on CT scan there was a question of a spiculated nodule in the right lower lobe. He slowly and continually improved. He did have some difficulty with episodes of tachycardia and intermittent fevers, but he continued to improve and was eventually was able to be discharged. He will go home on light activity about the house and will be seen in the office soon. He will be set up for home care and he will be discharged on Levaquin. FINAL DIAGNOSES: 1. Persistent right perihilar and right lower lobe community-acquired pneumonia. 2. Advanced chronic obstructive pulmonary disease. 3. Possible right lower lobe neoplasm. 4. Amyloidosis. OPERATIONS: None. CONSULTATIONS: 1. Pulmonology. 2. Infectious Disease. He is improved. MMODL / IJN: [id number] /
== END 2018-09-05 18:52 | disposition home health service (06) | DRG 177 ==
LOC: EC 19:35 → 4SSUR 21:37
PROVIDERS: ADMIT Family Medicine; ATTEND Family Medicine
PROC: 0B9F7ZX Drainage of Right Lower Lung Lobe, Via Natural or Artificial Opening, Diagnostic (ICD-10-PCS; principal; 2018-08-24)
PROC: 0B9D7ZX Drainage of Right Middle Lung Lobe, Via Natural or Artificial Opening, Diagnostic (ICD-10-PCS; 2018-08-24)
DX: J15.212 Pneumonia due to Methicillin resistant Staphylococcus aureus (principal); J96.01 Acute respiratory failure with hypoxia; B37.1 Pulmonary candidiasis; E85.9 Amyloidosis, unspecified; F17.210 Nicotine dependence, cigarettes, uncomplicated; J43.2 Centrilobular emphysema; B18.2 Chronic viral hepatitis C; G89.29 Other chronic pain; I10 Essential (primary) hypertension; I25.10 Atherosclerotic heart disease of native coronary artery without angina pectoris; L40.9 Psoriasis, unspecified; I71.2 Thoracic aortic aneurysm, without rupture; M54.9 Dorsalgia, unspecified; M19.90 Unspecified osteoarthritis, unspecified site; E78.5 Hyperlipidemia, unspecified; R91.1 Solitary pulmonary nodule; Y92.230 Patient room in hospital as the place of occurrence of the external cause; W19.XXXA Unspecified fall, initial encounter; Z82.49 Family history of ischemic heart disease and other diseases of the circulatory system; Z98.1 Arthrodesis status; Z79.2 Long term (current) use of antibiotics; Z79.51 Long term (current) use of inhaled steroids; Z79.52 Long term (current) use of systemic steroids; Z79.899 Other long term (current) drug therapy
CPT/HCPCS: 31624; 36415; 71045; 71046; 71275; 80048; 80053; 80202; 82565; 83605; 83735; 83880; 84484; 85025; 85027; 85379; 85610; 85730; 87040; 87070; 87077; 87102; 87116; 87186; 87205; 87206; 87252; 87496; 87498; 87502; 87529; 87634; 87798; 88108; 88305; 93005; 94640; 94644; 94760; 96361; 96365; 99285

== ENCOUNTER 2018-10-01 21:25 | Inpatient (IN) | payer MEDICARE ==
[2018-10-01] MEDS ORDERED: SODIUM CHLORIDE 0.9% 500 ML 500 ML IV STA (22:24)
[2018-10-01] MEDS ORDERED: ONDANSETRON 4 MG/2 ML VIAL IVP STA (22:24)
[2018-10-01] MEDS ORDERED: MORPHINE SULFATE 2 MG/ML SYRINGE IVP STA (22:24)
--- NOTE | 2018-10-01 22:29 | ED ---
Abdominal Pain HPI - General Chief Complaint: Abdominal Pain Stated Complaint: ABD pain,nausea,vomiting Time Seen by Provider: 10/01/18 22:13 Source: patient, EMS Mode of arrival: EMS Limitations: no limitations - History of Present Illness Initial Comments: This patient is 73-year-old man who presents with approximately 24 hours of abdominal pain. The patient indicates the area of the umbilicus. He believes that this is related to hernia that he has there. The patient states he has also had a few episodes of vomiting. He did not note any blood or coffee-ground material. Patient has had flatus today. MD Complaint: abdominal pain Onset/Timin -: hour(s) Location: periumbilical Radiation: none Severity: moderate Quality: cramping Consistency: constant Improves With: nothing Worsens With: nothing Associated Symptoms: nausea, vomiting - Related Data Home Medications Medication Instructions Recorded Confirmed Albuterol Inhaler [Ventolin Hfa 2 puff INHALATION RT-Q6H PRN 08/17/18 10/01/18 Inhaler] Albuterol Nebulized [Ventolin 2.5 mg INHALATION RT-Q6H PRN 08/17/18 10/01/18 Nebulized] Ergocalciferol [Vitamin D2 50,000 unit PO Q30D 08/17/18 10/01/18 (DRISDOL)] Fluticasone/Salmeterol [Advair 1 puff INHALATION RT-BID 08/17/18 10/01/18 500-50 Diskus] Multivitamins, Thera [Multivitamin 1 tab PO DAILY 08/17/18 10/01/18 (formulary)] Mylanta [id number] Chew 1 tab PO PC-TID 08/17/18 10/01/18 Olopatadine HCl 1 applic BOTH EYES HS 08/17/18 10/01/18 Simvastatin [Zocor] 20 mg PO DAILY 08/17/18 10/01/18 Tiotropium [place] [Spiriva] 1 cap INHALATION RT-DAILY 08/17/18 10/01/18 traMADol HCL [Ultram] 50 mg PO BID PRN 08/17/18 10/01/18 Previous Rx's Medication Instructions Recorded Nicotine 14Mg/24Hr Patch [Habitrol] 1 patch TRANSDERM DAILY 30 Days 08/22/18 #30 patch Docusate [Colace] 100 mg PO DAILY #20 capsule 10/04/18 FLUoxetine HCL [PROzac] 20 mg PO DAILY #30 cap 10/04/18 Metoprolol Tartrate [Lopressor] 25 mg PO BID #60 tab 10/04/18 OLANZapine [ZyPREXA] 2.5 mg PO TID #90 tab 10/04/18 Docusate [Colace] 100 mg PO BID #60 cap 10/08/18 Famotidine [Pepcid] 20 mg PO BID #60 tab 10/08/18 Allergies Allergy/AdvReac Type Severity Reaction Status Date / Time No Known Allergies Allergy Verified 10/01/18 22:51 Review of Systems ROS Statement: Those systems with pertinent positive or pertinent negative responses have been documented in the HPI. ROS Other: All systems not noted in ROS Statement are negative. Constitutional: Reports: weakness. Denies: fever Respiratory: Denies: cough, dyspnea Cardiovascular: Denies: chest pain, palpitations Gastrointestinal: Reports: abdominal pain, nausea, vomiting. Denies: diarrhea, constipation, hematemesis, melena, hematochezia Genitourinary: Denies: dysuria, hematuria Musculoskeletal: Denies: back pain Skin: Denies: rash Neurological: Denies: headache Past Medical History Past Medical History: COPD, Hyperlipidemia Additional Past Medical History / Comment(s): pneumonia History of Any Multi-Drug Resistant Organisms: MRSA Date of last positivie culture/infection: 08/27/18 MDRO Source:: BRONCH WASH Additional Past Surgical History / Comment(s): back fusion. hip surgery x 2 Past Anesthesia/Blood Transfusion Reactions: No Reported Reaction Past Psychological History: No Psychological Hx Reported Smoking Status: Former smoker Past Alcohol Use History: None Reported Past Drug Use History: None Reported - Past Family History Father Family Medical History: Myocardial Infarction (NH) Mother Family Medical History: Myocardial Infarction (NH) General Exam General appearance: alert, in no apparent distress Head exam: Present: atraumatic, normocephalic Eye exam: Present: normal appearance. Absent: scleral icterus, conjunctival injection ENT exam: Present: mucous membranes dry Respiratory exam: Present: normal lung sounds bilaterally. Absent: respiratory distress, wheezes, rales, rhonchi, stridor Cardiovascular Exam: Present: regular rate, normal rhythm, normal heart sounds. Absent: systolic murmur, diastolic murmur, rubs, gallop GI/Abdominal exam: Present: soft, hypoactive bowel sounds, hernia (Patient has a small umbilical hernia which was mildly tender but easily reduced.). Absent: distended, tenderness, guarding, rebound, rigid, mass exam: Present: normal inspection Extremities exam: Present: normal inspection, normal capillary refill, pedal edema (There is trace edema at the ankles bilaterally.). Absent: calf tenderness Back exam: Present: normal inspection. Absent: CVA tenderness (R), CVA tenderness (L) Neurological exam: Present: alert Skin exam: Present: warm, dry, intact, normal color. Absent: rash Course Vital Signs 10/01/18 10/01/18 10/02/18 21:35 23:08 01:13 Temperature 98 F 98.3 F Pulse Rate 92 99 98 Pulse Rate [ Pulse Oximetery ] Respiratory 18 18 18 Rate Blood Pressure 173/90 177/87 159/88 Blood Pressure [Right Arm] O2 Sat by Pulse 98 98 98 Oximetry 10/02/18 10/02/18 04:30 05:47 Temperature 98.5 F Pulse Rate 103 H Pulse Rate [ 102 H Pulse Oximetery ] Respiratory 20 15 Rate Blood Pressure 162/90 Blood Pressure 160/77 [Right Arm] O2 Sat by Pulse 98 93 L Oximetry Medical Decision Making - Medical Decision Making 's patient is 73-year-old man with abdominal pain. Patient does have a hernia but it does not appear to be acutely incarcerated. The patient does continue to have intractable pain. CT of the abdomen does show extensive stool burning throughout the right colon especially. Patient has not had significant relief and will be admitted for further management. - Lab Data Result diagrams: 10/03/18 06:08 10/06/18 07:14 Lab Results 10/01/18 10/01/18 10/01/18 Range/Units 22:41 22:44 22:46 WBC (3.8-10.6) k/uL RBC (4.30-5.90) m/uL Hgb (13.0-17.5) gm/dL Hct (39.0-53.0) % MCV (80.0-100.0) fL MCH (25.0-35.0) pg MCHC (31.0-37.0) g/dL RDW (11.5-15.5) % Plt Count (150-450) k/uL Neutrophils % % Lymphocytes % % Monocytes % % Eosinophils % % Basophils % % Neutrophils # (1.3-7.7) k/uL Lymphocytes # (1.0-4.8) k/uL Monocytes # (0-1.0) k/uL Eosinophils # (0-0.7) k/uL Basophils # (0-0.2) k/uL Hypochromasia Anisocytosis Sodium 130 L (137-145) mmol/L Potassium 4.2 (3.5-5.1) mmol/L Chloride 94 L (98-107) mmol/L Carbon Dioxide 28 (22-30) mmol/L Anion Gap 8 mmol/L BUN 5 L (9-20) mg/dL Creatinine 0.46 L (0.66-1.25) mg/dL Est GFR (CKD-EPI)AfAm >90 (>60 ml/min/1.73 sqM) Est GFR (CKD-EPI)NonAf >90 (>60 ml/min/1.73 sqM) Glucose 112 H (74-99) mg/dL Plasma Lactic Acid Gabe 1.3 (0.7-2.0) mmol/L Calcium 8.8 (8.4-10.2) mg/dL Total Bilirubin 0.5 (0.2-1.3) mg/dL AST 27 (17-59) U/L ALT 28 (21-72) U/L Alkaline Phosphatase 59 (38-126) U/L Total Protein 6.0 L (6.3-8.2) g/dL Albumin 3.6 (3.5-5.0) g/dL Amylase 36 (30-110) U/L Lipase 85 (23-300) U/L Urine Color Urine Appearance (Clear) Urine pH (5.0-8.0) Ur Specific [place] (1.001-1.035) Urine Protein (Negative) Urine Glucose (UA) (Negative) Urine Ketones (Negative) Urine Blood (Negative) Urine Nitrite (Negative) Urine Bilirubin (Negative) Urine Urobilinogen (<2.0) mg/dL Ur Leukocyte Esterase (Negative) Urine Opiates Screen Not Detected (NotDetected) Ur Oxycodone Screen Not Detected (NotDetected) Urine Methadone Screen Detected H (NotDetected) Ur Propoxyphene Screen Not Detected (NotDetected) Ur Barbiturates Screen Not Detected (NotDetected) U Tricyclic Antidepress Not Detected (NotDetected) Ur Phencyclidine Scrn Not Detected (NotDetected) Ur Amphetamines Screen Not Detected (NotDetected) U Methamphetamines Scrn Not Detected (NotDetected) U Benzodiazepines Scrn Not Detected (NotDetected) Urine Cocaine Screen Not Detected (NotDetected) U Marijuana (THC) Screen Not Detected (NotDetected) 10/01/18 10/01/18 10/03/18 Range/Units 22:46 22:46 06:08 WBC 11.5 H 11.3 H (3.8-10.6) k/uL RBC 3.03 L 3.41 L (4.30-5.90) m/uL Hgb 9.2 L D 9.9 L (13.0-17.5) gm/dL Hct 27.0 L 30.8 L (39.0-53.0) % MCV 89.2 90.4 (80.0-100.0) fL MCH 30.5 29.1 (25.0-35.0) pg MCHC 34.2 32.2 (31.0-37.0) g/dL RDW 19.9 H 18.3 H (11.5-15.5) % Plt Count 434 D 359 (150-450) k/uL Neutrophils % 77 81 % Lymphocytes % 11 7 % Monocytes % 9 9 % Eosinophils % 2 0 % Basophils % 0 0 % Neutrophils # 8.8 H 9.2 H (1.3-7.7) k/uL Lymphocytes # 1.3 0.8 L (1.0-4.8) k/uL Monocytes # 1.0 1.0 (0-1.0) k/uL Eosinophils # 0.2 0.0 (0-0.7) k/uL Basophils # 0.1 0.0 (0-0.2) k/uL Hypochromasia Slight Anisocytosis Slight Slight Sodium (137-145) mmol/L Potassium (3.5-5.1) mmol/L Chloride (98-107) mmol/L Carbon Dioxide (22-30) mmol/L Anion Gap mmol/L BUN (9-20) mg/dL Creatinine (0.66-1.25) mg/dL Est GFR (CKD-EPI)AfAm (>60 ml/min/1.73 sqM) Est GFR (CKD-EPI)NonAf (>60 ml/min/1.73 sqM) Glucose (74-99) mg/dL Plasma Lactic Acid Gabe (0.7-2.0) mmol/L Calcium (8.4-10.2) mg/dL Total Bilirubin (0.2-1.3) mg/dL AST (17-59) U/L ALT (21-72) U/L Alkaline Phosphatase (38-126) U/L Total Protein (6.3-8.2) g/dL Albumin (3.5-5.0) g/dL Amylase (30-110) U/L Lipase (23-300) U/L Urine Color Light Yellow Urine Appearance Clear (Clear) Urine pH 7.5 (5.0-8.0) Ur Specific [place] 1.009 (1.001-1.035) Urine Protein Negative (Negative) Urine Glucose (UA) Negative (Negative) Urine Ketones 2+ H (Negative) Urine Blood Negative (Negative) Urine Nitrite Negative (Negative) Urine Bilirubin Negative (Negative) Urine Urobilinogen <2.0 (<2.0) mg/dL Ur Leukocyte Esterase Negative (Negative) Urine Opiates Screen (NotDetected) Ur Oxycodone Screen (NotDetected) Urine Methadone Screen (NotDetected) Ur Propoxyphene Screen (NotDetected) Ur Barbiturates Screen (NotDetected) U Tricyclic Antidepress (NotDetected) Ur Phencyclidine Scrn (NotDetected) Ur Amphetamines Screen (NotDetected) U Methamphetamines Scrn (NotDetected) U Benzodiazepines Scrn (NotDetected) Urine Cocaine Screen (NotDetected) U Marijuana (THC) Screen (NotDetected) 10/03/18 Range/Units 06:08 WBC (3.8-10.6) k/uL RBC (4.30-5.90) m/uL Hgb (13.0-17.5) gm/dL Hct (39.0-53.0) % MCV (80.0-100.0) fL MCH (25.0-35.0) pg MCHC (31.0-37.0) g/dL RDW (11.5-15.5) % Plt Count (150-450) k/uL Neutrophils % % Lymphocytes % % Monocytes % % Eosinophils % % Basophils % % Neutrophils # (1.3-7.7) k/uL Lymphocytes # (1.0-4.8) k/uL Monocytes # (0-1.0) k/uL Eosinophils # (0-0.7) k/uL Basophils # (0-0.2) k/uL Hypochromasia Anisocytosis Sodium 127 L (137-145) mmol/L Potassium 4.4 (3.5-5.1) mmol/L Chloride 92 L (98-107) mmol/L Carbon Dioxide 26 (22-30) mmol/L Anion Gap 9 mmol/L BUN 15 (9-20) mg/dL Creatinine 0.79 (0.66-1.25) mg/dL Est GFR (CKD-EPI)AfAm >90 (>60 ml/min/1.73 sqM) Est GFR (CKD-EPI)NonAf >90 (>60 ml/min/1.73 sqM) Glucose 70 L (74-99) mg/dL Plasma Lactic Acid Gabe (0.7-2.0) mmol/L Calcium 8.5 (8.4-10.2) mg/dL Total Bilirubin (0.2-1.3) mg/dL AST (17-59) U/L ALT (21-72) U/L Alkaline Phosphatase (38-126) U/L Total Protein (6.3-8.2) g/dL Albumin (3.5-5.0) g/dL Amylase (30-110) U/L Lipase (23-300) U/L Urine Color Urine Appearance (Clear) Urine pH (5.0-8.0) Ur Specific [place] (1.001-1.035) Urine Protein (Negative) Urine Glucose (UA) (Negative) Urine Ketones (Negative) Urine Blood (Negative) Urine Nitrite (Negative) Urine Bilirubin (Negative) Urine Urobilinogen (<2.0) mg/dL Ur Leukocyte Esterase (Negative) Urine Opiates Screen (NotDetected) Ur Oxycodone Screen (NotDetected) Urine Methadone Screen (NotDetected) Ur Propoxyphene Screen (NotDetected) Ur Barbiturates Screen (NotDetected) U Tricyclic Antidepress (NotDetected) Ur Phencyclidine Scrn (NotDetected) Ur Amphetamines Screen (NotDetected) U Methamphetamines Scrn (NotDetected) U Benzodiazepines Scrn (NotDetected) Urine Cocaine Screen (NotDetected) U Marijuana (THC) Screen (NotDetected) Disposition Clinical Impression: Abdominal pain, Constipation Disposition: ADMITTED IP TO THIS [facility] Condition: Fair
[2018-10-01 23:01] LABS: Appearance,Urine Clear (Clear); Bilirubin,Urine Negative (Negative); Blood,Urine Negative (Negative); Color,Urine Light Yellow; Glucose,Urine (UA) Negative (Negative); Ketones,Urine 2+ (Negative); Leukocyte Esterase,Urine Negative (Negative); Nitrite,Urine Negative (Negative); PH, Urine 7.5 (5.0-8.0); Protein,Urine Negative (Negative); Specific Gravity,Urine 1.009 (1.001-1.035); Urobilinogen,Urine <2.0 mg/dL (<2.0)
[2018-10-01 23:11] LABS: ALT 28 U/L (21-72); AST 27 U/L (17-59); African American GFR (CKD) >90 (>60 ml/min/1.73 sqM); Albumin 3.6 g/dL (3.5-5.0); Alkaline Phosphatase 59 U/L (38-126); Amylase 36 U/L (30-110); Anion Gap 8 mmol/L; Blood Urea Nitrogen 5 mg/dL (9-20); Calcium 8.8 mg/dL (8.4-10.2); Carbon Dioxide 28 mmol/L (22-30); Chloride 94 mmol/L (98-107); Glucose 112 mg/dL (74-99); Non-African American GFR(CKD) >90 (>60 ml/min/1.73 sqM); Potassium 4.2 mmol/L (3.5-5.1); Sodium 130 mmol/L (137-145); Total Bilirubin 0.5 mg/dL (0.2-1.3)
[2018-10-01 23:16] LABS: Anisocytosis Slight; Basophils # (A) 0.1 k/uL (0-0.2); Basophils % (A) 0 %; Eosinophils # (A) 0.2 k/uL (0-0.7); Eosinophils % (A) 2 %; Lymphocytes # (A) 1.3 k/uL (1.0-4.8); Lymphocytes % (A) 11 %; MCH 30.5 pg (25.0-35.0); MCHC 34.2 g/dL (31.0-37.0); MCV 89.2 fL (80.0-100.0); Mean Platelet Volume 7.2; Monocytes % (A) 9 %; Neutrophils # (A) 8.8 k/uL (1.3-7.7); Neutrophils % (A) 77 %; RBC 3.03 m/uL (4.30-5.90); RDW 19.9 % (11.5-15.5); WBC 11.5 k/uL (3.8-10.6)
[2018-10-01 23:17] LABS: HGB 9.2 gm/dL (13.0-17.5)
[2018-10-01 23:18] LABS: Platelet Count 434 k/uL (150-450)
--- NOTE | 2018-10-01 23:59 | CT ---
EXAM: CT Abdomen and Pelvis Without Intravenous Contrast CLINICAL HISTORY: ITS.REASON CT Reason: Pain TECHNIQUE: Axial computed tomography images of the abdomen and pelvis without intravenous contrast. This CT exam was performed using one or more of the following dose reduction techniques: automated exposure control, adjustment of the mA and/or kV according to patient size, and/or use of iterative reconstruction technique. COMPARISON: No relevant prior studies available. FINDINGS: Lung bases: Unremarkable. No mass. No consolidation. ABDOMEN: Liver: No suspicious mass. Gallbladder and bile ducts: No abnormal ductal dilation or stones. Pancreas: Unremarkable. No ductal dilation. Spleen: Unremarkable. No splenomegaly. Adrenals: Unremarkable. No mass. Kidneys and ureters: No obstructing stones. No hydronephrosis. Stomach and bowel: Abundant stool in the ascending colon. PELVIS: Appendix: No findings to suggest acute appendicitis. Bladder: Unremarkable. No stones. Reproductive: Unremarkable as visualized. ABDOMEN and PELVIS: Intraperitoneal space: Unremarkable. No free air. No significant fluid collection. Bones/joints: No acute fracture. No dislocation. Soft tissues: Unremarkable. Vasculature: No abdominal aortic aneurysm. Lymph nodes: Unremarkable. No enlarged lymph nodes. IMPRESSION: Abundant stool in the ascending colon. No acute findings.
[2018-10-02 00:22] LABS: Amphetamine Screen,Urine Not Detected (NotDetected); Barbiturate Screen,Urine Not Detected (NotDetected); Benzodiazepines Screen,Urine Not Detected (NotDetected); Cocaine Screen,Urine Not Detected (NotDetected); Methadone Screen, Urine Detected (NotDetected); Opiate Screen,Urine Not Detected (NotDetected); Oxycodone Screen, Urine Not Detected (NotDetected); Phencyclidine Screen,Urine Not Detected (NotDetected); Tricyclic Antidepressant,Urine Not Detected (NotDetected); Urn Cannabinoid Scrn Not Detected (NotDetected)
[2018-10-02] MEDS ORDERED: MORPHINE SULFATE 4 MG/ML SYRINGE IV PRN (02:44)
[2018-10-02] MEDS ORDERED: NALOXONE 0.4 MG/ML 1 ML VIAL IV PRN (02:44)
[2018-10-02] MEDS: SODIUM CHLORIDE 0.9% 1,000 ML IV SCH ×3 (03:26→20:10)
[2018-10-02] MEDS: IPRATROPIUM 0.5 MG/2.5 ML NEBU INHALATION SCH ×4 (08:02→19:23)
[2018-10-02] MEDS: SYMBICORT 160-4.5 MCG INHALER INHALATION SCH ×2 (08:02→19:36)
[2018-10-02] MEDS ORDERED: MYLANTA PO SCH (08:30)
[2018-10-02] MEDS ORDERED: MAGNESIUM CITRATE 296 ML BOTTLE PO ONE (09:17)
[2018-10-02] MEDS: NICOTINE 14MG/24HR PATCH TRANSDERM SCH (09:34)
[2018-10-02] MEDS: NAPROXEN 250 MG TAB PO SCH ×2 (09:34→20:09)
[2018-10-02] MEDS: ATORVASTATIN 10 MG TAB PO SCH (09:34)
--- NOTE | 2018-10-02 11:40 | P.GSCN ---
<Eli Tubbs - Last Filed: 10/02/18 11:33> History of Present Illness Consult date: 10/02/18 Reason for Consult: abdominal pain Requesting physician: Pierre Suggs History of present illness: CHIEF COMPLAINT: abdominal pain HISTORY OF PRESENT ILLNESS: 73-year-old male who presented to the emergency room chief complaint of abdominal pain. General surgery was consulted for further evaluation. Patient reports he has been having pain for approximately one week at increased in severity over the last 24 hours. He reports the pain is mostly in his right or quadrant and periumbilical region. He reports nausea and an isolated episode of vomiting yesterday. Reports his last bowel movement was 2 or 3 days ago. Stool normal in characteristics. He reports feeling constipated this morning. Abdominal pain has improved. Patient reports he had a colonoscopy in the past but is not sure of when. PAST MEDICAL HISTORY: See list. PAST SURGICAL HISTORY: See list. SOCIAL HISTORY: No illicit drug use. REVIEW OF SYSTEMS: CONSTITUTIONAL: Denies fever or chills. HEENT: Denies blurred vision, vision changes, or eye pain. Denies hemoptysis CARDIOVASCULAR: Denies chest pain or pressure. RESPIRATORY: No shortness of breath. GASTROINTESTINAL: Refer to HPI for pertinent findings HEMATOLOGIC: Denies bleeding disorders. GENITOURINARY: Denies any blood in urine. SKIN: Denies pruitis. Denies rash. PHYSICAL EXAM: VITAL SIGNS: Reviewed. GENERAL: Well-developed in no acute distress. HEENT: No sclera icterus. Extraocular movements grossly intact. Moist buccal mucosa. Head is atraumatic, normocephalic. ABDOMEN: Soft. Nondistended. Tenderness with palpation to right lower quadrant and periumbical region. Small umbilical hernia which is nontender and easily reducible. NEUROLOGIC: Alert and oriented. Cranial nerves II through XII grossly intact. LABORATORY DATA: Laboratory data this morning reveals white count 11.5. Hemoglobin 9.2. Potassium 4.2. Lactic acid 1.3. Bilirubin 0.5. AST 27. ALT 28. IMAGING: CT abdomen and pelvis: Abundant stool in the ascending colon. No acute findings. ASSESSMENT: 1. Abdominal pain 2. Constipation per patient, CT reports abundant stool in the ascending colon PLAN: Abdominal pain does not appear to be secondary to small umbilical hernia, which is nontender and easily reducible. Abdominal pain may be secondary to constipation as CT reports abundant stool in ascending colon and patient reports feeling constipated. Mag citrate 1 dose. Continue clear liquid diet for now. No surgical intervention recommended at this time. We will continue to follow. Further recommendations pending patient's clinical course. Nurse practitioner note has been reviewed by physician. Signing provider agrees with the documented findings, assessment, and plan of care. Past Medical History Past Medical History: COPD, Hyperlipidemia Additional Past Medical History / Comment(s): pneumonia History of Any Multi-Drug Resistant Organisms: MRSA Year Discovered:: 08/27/18 MDRO Source:: BRONCH WASH Additional Past Surgical History / Comment(s): back fusion. hip surgery x 2 Past Anesthesia/Blood Transfusion Reactions: No Reported Reaction Past Psychological History: No Psychological Hx Reported Additional Psychological History / Comment(s): Recently lost his and is still actively grieving. Tobacco smoker and has increased since his 's he was trying to quit prior. 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 No animals in the home. Adult children do not live close by. No drug use Smoking Status: Former smoker Past Alcohol Use History: None Reported Past Drug Use History: None Reported - Past Family History Father Family Medical History: Myocardial Infarction ([place]) Mother Family Medical History: Myocardial Infarction ([place]) Medications and Allergies Home Medications Medication Instructions Recorded Confirmed Type Albuterol Inhaler [Ventolin Hfa 2 puff INHALATION RT-Q6H PRN 08/17/18 10/01/18 History Inhaler] Albuterol Nebulized [Ventolin 2.5 mg INHALATION RT-Q6H PRN 08/17/18 10/01/18 History Nebulized] Ergocalciferol [Vitamin D2 50,000 unit PO Q30D 08/17/18 10/01/18 History (DRISDOL)] Fluticasone/Salmeterol [Advair 1 puff INHALATION RT-BID 08/17/18 10/01/18 History 500-50 Diskus] Multivitamins, Thera [Multivitamin 1 tab PO DAILY 08/17/18 10/01/18 History (formulary)] Mylanta [id number] Chew 1 tab PO PC-TID 08/17/18 10/01/18 History Naproxen 500 mg PO BID 08/17/18 10/01/18 History Olopatadine HCl 1 applic BOTH EYES HS 08/17/18 10/01/18 History Simvastatin [Zocor] 20 mg PO DAILY 08/17/18 10/01/18 History Tiotropium [place] [Spiriva] 1 cap INHALATION RT-DAILY 08/17/18 10/01/18 History traMADol HCL [Ultram] 50 mg PO BID PRN 08/17/18 10/01/18 History Nicotine 14Mg/24Hr Patch [Habitrol] 1 patch TRANSDERM DAILY 30 Days 08/22/18 10/01/18 Rx #30 patch Allergies Allergy/AdvReac Type Severity Reaction Status Date / Time No Known Allergies Allergy Verified 10/01/18 22:51 Surgical - Exam Vital Signs Temp Pulse Resp BP Pulse Ox 98 F 92 18 173/90 98 10/01/18 21:35 10/01/18 21:35 10/01/18 21:35 10/01/18 21:35 10/01/18 21:35 Results - Labs 10/01/18 22:46 10/01/18 22:46 Abnormal Lab Results - Last 24 Hours (Table) 10/01/18 10/01/18 10/01/18 Range/Units 22:41 22:46 22:46 WBC 11.5 H (3.8-10.6) k/uL RBC 3.03 L (4.30-5.90) m/uL Hgb 9.2 L D (13.0-17.5) gm/dL Hct 27.0 L (39.0-53.0) % RDW 19.9 H (11.5-15.5) % Neutrophils # 8.8 H (1.3-7.7) k/uL Sodium 130 L (137-145) mmol/L Chloride 94 L (98-107) mmol/L BUN 5 L (9-20) mg/dL Creatinine 0.46 L (0.66-1.25) mg/dL Glucose 112 H (74-99) mg/dL Total Protein 6.0 L (6.3-8.2) g/dL Urine Ketones (Negative) Urine Methadone Screen Detected H (NotDetected) 10/01/18 Range/Units 22:46 WBC (3.8-10.6) k/uL RBC (4.30-5.90) m/uL Hgb (13.0-17.5) gm/dL Hct (39.0-53.0) % RDW (11.5-15.5) % Neutrophils # (1.3-7.7) k/uL Sodium (137-145) mmol/L Chloride (98-107) mmol/L BUN (9-20) mg/dL Creatinine (0.66-1.25) mg/dL Glucose (74-99) mg/dL Total Protein (6.3-8.2) g/dL Urine Ketones 2+ H (Negative) Urine Methadone Screen (NotDetected) Diabetes panel 10/01/18 Range/Units 22:46 Sodium 130 L (137-145) mmol/L Potassium 4.2 (3.5-5.1) mmol/L Chloride 94 L (98-107) mmol/L Carbon Dioxide 28 (22-30) mmol/L BUN 5 L (9-20) mg/dL Creatinine 0.46 L (0.66-1.25) mg/dL Glucose 112 H (74-99) mg/dL Calcium 8.8 (8.4-10.2) mg/dL AST 27 (17-59) U/L ALT 28 (21-72) U/L Alkaline Phosphatase 59 (38-126) U/L Total Protein 6.0 L (6.3-8.2) g/dL Albumin 3.6 (3.5-5.0) g/dL Calcium panel 10/01/18 Range/Units 22:46 Calcium 8.8 (8.4-10.2) mg/dL Albumin 3.6 (3.5-5.0) g/dL Pituitary panel 10/01/18 Range/Units 22:46 Sodium 130 L (137-145) mmol/L Potassium 4.2 (3.5-5.1) mmol/L Chloride 94 L (98-107) mmol/L Carbon Dioxide 28 (22-30) mmol/L BUN 5 L (9-20) mg/dL Creatinine 0.46 L (0.66-1.25) mg/dL Glucose 112 H (74-99) mg/dL Calcium 8.8 (8.4-10.2) mg/dL Adrenal panel 10/01/18 Range/Units 22:46 Sodium 130 L (137-145) mmol/L Potassium 4.2 (3.5-5.1) mmol/L Chloride 94 L (98-107) mmol/L Carbon Dioxide 28 (22-30) mmol/L BUN 5 L (9-20) mg/dL Creatinine 0.46 L (0.66-1.25) mg/dL Glucose 112 H (74-99) mg/dL Calcium 8.8 (8.4-10.2) mg/dL Total Bilirubin 0.5 (0.2-1.3) mg/dL AST 27 (17-59) U/L ALT 28 (21-72) U/L Alkaline Phosphatase 59 (38-126) U/L Total Protein 6.0 L (6.3-8.2) g/dL Albumin 3.6 (3.5-5.0) g/dL <Will Lindsey - Last Filed: 10/02/18 16:02> History of Present Illness History of present illness: As above. Patient with improvement in his right-sided pain. No bowel movement thus far. Umbilical hernia easily reducible. Continue mag citrate. Continue diet as tolerated. Outpatient umbilical herniorrhaphy. Surgical - Exam Vital Signs Temp Pulse Resp BP Pulse Ox 98 F 92 18 173/90 98 10/01/18 21:35 10/01/18 21:35 10/01/18 21:35 10/01/18 21:35 10/01/18 21:35 Results - Labs 10/01/18 22:46 10/01/18 22:46 Abnormal Lab Results - Last 24 Hours (Table) 10/01/18 10/01/18 10/01/18 Range/Units 22:41 22:46 22:46 WBC 11.5 H (3.8-10.6) k/uL RBC 3.03 L (4.30-5.90) m/uL Hgb 9.2 L D (13.0-17.5) gm/dL Hct 27.0 L (39.0-53.0) % RDW 19.9 H (11.5-15.5) % Neutrophils # 8.8 H (1.3-7.7) k/uL Sodium 130 L (137-145) mmol/L Chloride 94 L (98-107) mmol/L BUN 5 L (9-20) mg/dL Creatinine 0.46 L (0.66-1.25) mg/dL Glucose 112 H (74-99) mg/dL Total Protein 6.0 L (6.3-8.2) g/dL Urine Ketones (Negative) Urine Methadone Screen Detected H (NotDetected) 10/01/18 Range/Units 22:46 WBC (3.8-10.6) k/uL RBC (4.30-5.90) m/uL Hgb (13.0-17.5) gm/dL Hct (39.0-53.0) % RDW (11.5-15.5) % Neutrophils # (1.3-7.7) k/uL Sodium (137-145) mmol/L Chloride (98-107) mmol/L BUN (9-20) mg/dL Creatinine (0.66-1.25) mg/dL Glucose (74-99) mg/dL Total Protein (6.3-8.2) g/dL Urine Ketones 2+ H (Negative) Urine Methadone Screen (NotDetected) Diabetes panel 10/01/18 Range/Units 22:46 Sodium 130 L (137-145) mmol/L Potassium 4.2 (3.5-5.1) mmol/L Chloride 94 L (98-107) mmol/L Carbon Dioxide 28 (22-30) mmol/L BUN 5 L (9-20) mg/dL Creatinine 0.46 L (0.66-1.25) mg/dL Glucose 112 H (74-99) mg/dL Calcium 8.8 (8.4-10.2) mg/dL AST 27 (17-59) U/L ALT 28 (21-72) U/L Alkaline Phosphatase 59 (38-126) U/L Total Protein 6.0 L (6.3-8.2) g/dL Albumin 3.6 (3.5-5.0) g/dL Calcium panel 10/01/18 Range/Units 22:46 Calcium 8.8 (8.4-10.2) mg/dL Albumin 3.6 (3.5-5.0) g/dL Pituitary panel 10/01/18 Range/Units 22:46 Sodium 130 L (137-145) mmol/L Potassium 4.2 (3.5-5.1) mmol/L Chloride 94 L (98-107) mmol/L Carbon Dioxide 28 (22-30) mmol/L BUN 5 L (9-20) mg/dL Creatinine 0.46 L (0.66-1.25) mg/dL Glucose 112 H (74-99) mg/dL Calcium 8.8 (8.4-10.2) mg/dL Adrenal panel 10/01/18 Range/Units 22:46 Sodium 130 L (137-145) mmol/L Potassium 4.2 (3.5-5.1) mmol/L Chloride 94 L (98-107) mmol/L Carbon Dioxide 28 (22-30) mmol/L BUN 5 L (9-20) mg/dL Creatinine 0.46 L (0.66-1.25) mg/dL Glucose 112 H (74-99) mg/dL Calcium 8.8 (8.4-10.2) mg/dL Total Bilirubin 0.5 (0.2-1.3) mg/dL AST 27 (17-59) U/L ALT 28 (21-72) U/L Alkaline Phosphatase 59 (38-126) U/L Total Protein 6.0 L (6.3-8.2) g/dL Albumin 3.6 (3.5-5.0) g/dL
--- NOTE | 2018-10-02 13:03 | P.HPIM ---
History of Present Illness 73-year-old gentleman came in the after he was brought by the daughter as he was not eating well really tired and had few episodes of vomiting no coffee-ground emesis. Patient lost his on July 07 since then patient has been depressed severely patient admitted to depression and has lost a significant amount of weight as he has not been eating drinking well. Patient here appear to be dehydrated with hyponatremia has been constipated last bowel movement was 3 days ago abdominal CAT scan did reveal constipation. Patient was started on milk of magnesia, Gen. surgery was consulted from ER for a valid the patient already. Patient has mild generalized abdominal pain. Does have leukocytosis without any evidence of infection at this time denied any fever chills denied any cough denied dysuria Review of Systems REVIEW OF SYSTEMS: CONSTITUTIONAL: No fever, no malaise, no fatigue. HEENT: No recent visual problems or hearing problems. Denied any sore throat. CARDIOVASCULAR: No chest pain, orthopnea, PND, no palpitations, no syncope. PULMONARY: No shortness of breath, no cough, no hemoptysis. GASTROINTESTINAL: No diarrhea, no nausea, no vomiting, no abdominal pain. NEUROLOGICAL: No headaches, no weakness, no numbness. HEMATOLOGICAL: Denies any bleeding or petechiae. GENITOURINARY: Denies any burning micturition, frequency, or urgency. MUSCULOSKELETAL/RHEUMATOLOGICAL: Denies any joint pain, swelling, or any muscle pain. ENDOCRINE: Denies any polyuria or polydipsia. The rest of the 14-point review of systems is negative. Past Medical History Past Medical History: COPD, Hyperlipidemia Additional Past Medical History / Comment(s): pneumonia History of Any Multi-Drug Resistant Organisms: MRSA Date of last positivie culture/infection: 08/27/18 MDRO Source:: BRONCH WASH Additional Past Surgical History / Comment(s): back fusion. hip surgery x 2 Past Anesthesia/Blood Transfusion Reactions: No Reported Reaction Past Psychological History: No Psychological Hx Reported Additional Psychological History / Comment(s): Recently lost his and is still actively grieving. Tobacco smoker and has increased since his 's he was trying to quit prior. 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 No animals in the home. Adult children do not live close by. No drug use Smoking Status: Former smoker Past Alcohol Use History: None Reported Past Drug Use History: None Reported - Past Family History Father Family Medical History: Myocardial Infarction ([place]) Mother Family Medical History: Myocardial Infarction ([place]) Medications and Allergies Home Medications Medication Instructions Recorded Confirmed Type Albuterol Inhaler [Ventolin Hfa 2 puff INHALATION RT-Q6H PRN 08/17/18 10/01/18 History Inhaler] Albuterol Nebulized [Ventolin 2.5 mg INHALATION RT-Q6H PRN 08/17/18 10/01/18 History Nebulized] Ergocalciferol [Vitamin D2 50,000 unit PO Q30D 08/17/18 10/01/18 History (DRISDOL)] Fluticasone/Salmeterol [Advair 1 puff INHALATION RT-BID 08/17/18 10/01/18 History 500-50 Diskus] Multivitamins, Thera [Multivitamin 1 tab PO DAILY 08/17/18 10/01/18 History (formulary)] Mylanta [id number] Chew 1 tab PO PC-TID 08/17/18 10/01/18 History Naproxen 500 mg PO BID 08/17/18 10/01/18 History Olopatadine HCl 1 applic BOTH EYES HS 08/17/18 10/01/18 History Simvastatin [Zocor] 20 mg PO DAILY 08/17/18 10/01/18 History Tiotropium [place] [Spiriva] 1 cap INHALATION RT-DAILY 08/17/18 10/01/18 History traMADol HCL [Ultram] 50 mg PO BID PRN 08/17/18 10/01/18 History Nicotine 14Mg/24Hr Patch [Habitrol] 1 patch TRANSDERM DAILY 30 Days 08/22/18 10/01/18 Rx #30 patch Allergies Allergy/AdvReac Type Severity Reaction Status Date / Time No Known Allergies Allergy Verified 10/01/18 22:51 Physical Exam Vitals: Vital Signs Temp Pulse Pulse Resp BP BP Pulse Ox 10/02/18 11:38 102 H 10/02/18 11:28 98 10/02/18 08:15 100 10/02/18 08:03 100 93 L 10/02/18 07:53 15 10/02/18 07:00 98.4 F 106 H 15 147/80 94 L 10/02/18 05:47 98.5 F 102 H 15 160/77 93 L 10/02/18 04:30 103 H 20 162/90 98 10/02/18 01:13 98 18 159/88 98 10/01/18 23:08 98.3 F 99 18 177/87 98 10/01/18 21:35 98 F 92 18 173/90 98 Intake and Output 10/01/18 10/02/18 10/02/18 22:59 06:59 14:59 Intake Total 610 Balance 610 Intake: Amount of Fluid Infused ( 600 ml) Oral 10 Other: Weight 61.689 kg PHYSICAL EXAMINATION: GENERAL: The patient is alert and oriented x3, not in any acute distress. . In built appears to be severely depressed HEENT: Pupils are round and equally reacting to light. EOMI. No scleral icterus. No conjunctival pallor. Normocephalic, atraumatic. No pharyngeal erythema. No thyromegaly. CARDIOVASCULAR: S1 and S2 present. No murmurs, rubs, or gallops. PULMONARY: Chest is clear to auscultation, no wheezing or crackles. ABDOMEN: Mildly distended tympanic although no obvious tenderness does have bowel sounds, No palpable organomegaly. MUSCULOSKELETAL: No joint swelling or deformity. EXTREMITIES: No cyanosis, clubbing, or pedal edema. NEUROLOGICAL: Gross neurological examination did not reveal any focal deficits. SKIN: No rashes. Results CBC & Chem 7: 10/01/18 22:46 10/01/18 22:46 Labs: Abnormal Lab Results - Last 24 Hours (Table) 10/01/18 10/01/18 10/01/18 Range/Units 22:41 22:46 22:46 WBC 11.5 H (3.8-10.6) k/uL RBC 3.03 L (4.30-5.90) m/uL Hgb 9.2 L D (13.0-17.5) gm/dL Hct 27.0 L (39.0-53.0) % RDW 19.9 H (11.5-15.5) % Neutrophils # 8.8 H (1.3-7.7) k/uL Sodium 130 L (137-145) mmol/L Chloride 94 L (98-107) mmol/L BUN 5 L (9-20) mg/dL Creatinine 0.46 L (0.66-1.25) mg/dL Glucose 112 H (74-99) mg/dL Total Protein 6.0 L (6.3-8.2) g/dL Urine Ketones (Negative) Urine Methadone Screen Detected H (NotDetected) 10/01/18 Range/Units 22:46 WBC (3.8-10.6) k/uL RBC (4.30-5.90) m/uL Hgb (13.0-17.5) gm/dL Hct (39.0-53.0) % RDW (11.5-15.5) % Neutrophils # (1.3-7.7) k/uL Sodium (137-145) mmol/L Chloride (98-107) mmol/L BUN (9-20) mg/dL Creatinine (0.66-1.25) mg/dL Glucose (74-99) mg/dL Total Protein (6.3-8.2) g/dL Urine Ketones 2+ H (Negative) Urine Methadone Screen (NotDetected) Thrombosis Risk Factor Assmnt - Choose All That Apply Any of the Below Risk Factors Present?: Yes Each Factor Represents 1 point: Abnormal pulmonary function (COPD) Other Risk Factors: Yes Each Risk Factor Represents 2 Points: Age 61-74 years Thrombosis Risk Factor Assessment Total Risk Factor Score: 3 Thrombosis Risk Factor Assessment Level: Moderate Risk Assessment and Plan Plan: -Fatigue, hyponatremia: Hypovolemic hyponatremia from be poor by mouth intake patient was started on IV fluids and recheck the basic metabolic profile tomorrow -Significant fatigue and loss of appetite due to depression and bereavement, psychiatric will be consulting -Constipation: Milk of molasses as mentioned above -Dehydration -Tachycardia secondary to dehydration intravascular volume depletion leukocytosis reactive DVT prophylaxis with subcutaneous heparin GI prophylaxis with Pepcid
[2018-10-02] MEDS: traMADol 50 MG TAB PO PRN (15:02)
--- NOTE | 2018-10-02 16:27 | P.CNPUL ---
History of Present Illness Consult date: 10/02/18 Requesting physician: Vanessa Jimenez Reason for consult: other (Abdominal discomfort) Chief complaint: Abdominal discomfort History of present illness: This is a 73-year-old white male patient with history of advanced COPD, with baseline FEV1 of 31% of predicted, a chronic history of smoking, history of multiple comorbidities including chronic hepatitis C, essential hypertension, history of solitary lung nodule, and thoracic aortic aneurysm. Patient carries [id number] smoking history, was down to half a pack a day. On a combination of Advair and Spiriva and nebulized bronchodilators on as-needed basis, not on any home oxygen. Patient follows with Dr. Anderson in our office. He presented to the music she remains to with complaints of abdominal pain, nausea and vomiting for approximately 24 hours. His pain is around the umbilicus. He does state he has a history of hernia there. No blood noted in his emesis. Computed tomography scan of the abdomen revealed an abundant stool in the ascending colon. No other acute findings. He is seen today in consultation on the [facility] medical floor. He is currently awake and alert in no acute distress. He is still having some ongoing discomfort with abdominal fullness and tenderness on palpation. No complaints of shortness of breath, cough or congestion. He is maintaining O2 saturations in the low 90s on 3 L/m per nasal cannula. He is afebrile. White count 11.5. Hemoglobin 9.2. Creatinine 0.46. He has been given citrate of magnesium. Review of Systems REVIEW OF SYSTEMS: CONSTITUTIONAL: Denies any recent significant weight loss or weight gain. EYES: Denies change in vision. EARS, NOSE, MOUTH, THROAT: Denies headaches, denies sore throat. CARDIOVASCULAR: Denies chest pain, palpitations or syncopal episodes. RESPIRATORY: Denies shortness of breath, cough, congestion or hemoptysis. GASTROINTESTINAL: Positive for change in appetite, positive for abdominal pain secondary to constipation GENITOURINARY: Denies hematuria, denies infections. MUSKULOSKELETAL: Denies pain, denies swelling. INTEGUMENTARY: Denies rash, denies eczema. NEUROLOGICAL: Denies recent memory loss, no recent seizure activity. PSYCHIATRIC: Denies anxiety, denies depression. HEMATOLOGIC/LYMPHATIC: Denies anemia, denies enlarged lymph nodes. Past Medical History Past Medical History: COPD, Hyperlipidemia Additional Past Medical History / Comment(s): pneumonia History of Any Multi-Drug Resistant Organisms: MRSA Date of last positivie culture/infection: 08/27/18 MDRO Source:: BRONCH WASH Additional Past Surgical History / Comment(s): back fusion. hip surgery x 2 Past Anesthesia/Blood Transfusion Reactions: No Reported Reaction Past Psychological History: No Psychological Hx Reported Additional Psychological History / Comment(s): Recently lost his and is still actively grieving. Tobacco smoker and has increased since his 's he was trying to quit prior. 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 No animals in the home. Adult children do not live close by. No drug use Smoking Status: Former smoker Past Alcohol Use History: None Reported Past Drug Use History: None Reported - Past Family History Father Family Medical History: Myocardial Infarction ([place]) Mother Family Medical History: Myocardial Infarction ([place]) Medications and Allergies Home Medications Medication Instructions Recorded Confirmed Type Albuterol Inhaler [Ventolin Hfa 2 puff INHALATION RT-Q6H PRN 08/17/18 10/01/18 History Inhaler] Albuterol Nebulized [Ventolin 2.5 mg INHALATION RT-Q6H PRN 08/17/18 10/01/18 History Nebulized] Ergocalciferol [Vitamin D2 50,000 unit PO Q30D 08/17/18 10/01/18 History (DRISDOL)] Fluticasone/Salmeterol [Advair 1 puff INHALATION RT-BID 08/17/18 10/01/18 History 500-50 Diskus] Multivitamins, Thera [Multivitamin 1 tab PO DAILY 08/17/18 10/01/18 History (formulary)] Mylanta [id number] Chew 1 tab PO PC-TID 08/17/18 10/01/18 History Naproxen 500 mg PO BID 08/17/18 10/01/18 History Olopatadine HCl 1 applic BOTH EYES HS 08/17/18 10/01/18 History Simvastatin [Zocor] 20 mg PO DAILY 08/17/18 10/01/18 History Tiotropium [place] [Spiriva] 1 cap INHALATION RT-DAILY 08/17/18 10/01/18 History traMADol HCL [Ultram] 50 mg PO BID PRN 08/17/18 10/01/18 History Nicotine 14Mg/24Hr Patch [Habitrol] 1 patch TRANSDERM DAILY 30 Days 08/22/18 10/01/18 Rx #30 patch Allergies Allergy/AdvReac Type Severity Reaction Status Date / Time No Known Allergies Allergy Verified 10/01/18 22:51 Physical Exam Vitals: Vital Signs Temp Pulse Pulse Resp BP BP Pulse Ox 10/02/18 15:39 104 H 10/02/18 15:29 104 H 10/02/18 15:00 98.9 F 111 H 15 134/79 92 L 10/02/18 11:38 102 H 10/02/18 11:28 98 10/02/18 08:15 100 10/02/18 08:03 100 93 L 10/02/18 07:53 15 10/02/18 07:00 98.4 F 106 H 15 147/80 94 L 10/02/18 05:47 98.5 F 102 H 15 160/77 93 L 10/02/18 04:30 103 H 20 162/90 98 10/02/18 01:13 98 18 159/88 98 10/01/18 23:08 98.3 F 99 18 177/87 98 10/01/18 21:35 98 F 92 18 173/90 98 Intake and Output 10/02/18 10/02/18 10/02/18 06:59 14:59 22:59 Intake Total 610 Balance 610 Intake: Amount of Fluid Infused ( 600 ml) Oral 10 Other: # Voids 3 GENERAL EXAM: Alert, pleasant 73-year-old gentleman, fairly comfortable in no apparent distress. On 2 L nasal cannula. HEAD: Normocephalic. EYES: Normal reaction of pupils, equal size. NOSE: Clear with pink turbinates. THROAT: No erythema or exudates. NECK: No masses, no JVD. CHEST: No chest wall deformity. LUNGS: Equal air entry with no crackles, wheeze, rhonchi or dullness. Diminished. CVS: S1 and S2 normal with no audible murmur, regular rhythm. ABDOMEN: No hepatosplenomegaly, normal bowel sounds, fullness and distention. SPINE: No scoliosis or deformity SKIN: No rashes CENTRAL NERVOUS SYSTEM: No focal deficits, tone is normal in all 4 extremities. EXTREMITIES: There is no peripheral edema. No clubbing, no cyanosis. Peripheral pulses are intact. Results - Laboratory Findings CBC and BMP: 10/01/18 22:46 10/01/18 22:46 Abnormal lab findings: Abnormal Labs 10/01/18 10/01/18 10/01/18 22:41 22:46 22:46 WBC 11.5 H RBC 3.03 L Hgb 9.2 L D Hct 27.0 L RDW 19.9 H Neutrophils # 8.8 H Sodium 130 L Chloride 94 L BUN 5 L Creatinine 0.46 L Glucose 112 H Total Protein 6.0 L Urine Ketones Urine Methadone Screen Detected H 10/01/18 22:46 WBC RBC Hgb Hct RDW Neutrophils # Sodium Chloride BUN Creatinine Glucose Total Protein Urine Ketones 2+ H Urine Methadone Screen Assessment and Plan Assessment: Impression: #1 Abdominal discomfort secondary to constipation. Surgical services has seen and evaluated patient. Mag citrate was given. Clear liquids for now. No surgical interventions at this time.#3. History of advanced COPD, stage III, with baseline FEV1 of 31% of predicted, not on home oxygen #2. History of advanced COPD, stage III/IV with baseline FEV1 value 31% of predicted. #3. Chronic and ongoing nicotine dependence, patient carries [id number] smoking history #4. Hyperlipidemia #5. Chronic hepatitis C #6. Hypertension #7. Ascending thoracic aortic aneurysm, being followed in the outpatient basis, there was previously measuring 4.5 x 4.4 cm, thoracic CTA was completed showing dimension of 4.6 cm anterior-posterior at a maximum, with no evidence of aortic dissection #8. Chronic back pain #9. Solitary lung nodule in the left upper lobe previously measuring 8 mm in size, being followed in the outpatient basis by Dr. Anderson. Thoracic CTA chest also revealed a spiculated lesion at the superior segment of the right lower lobe measuring 1 cm #10. Psoriasis Plan: The patient was seen and evaluated by Dr. Murrieta. He is currently stable from the pulmonary standpoint. Currently drinking citrate of magnesia. Continue with some abdominal discomfort. Surgical services have been consulted. We'll continue to follow make further recommendations based on his clinical status. I, the cosigning physician, performed a history & physical examination of the patient. Lungs sounds are clear, diminished. Maintaining good O2 saturations in the 90s on 2 L/m per nasal cannula. I discussed the assessment and plan of care with my nurse practitioner, Joi Bustamante. I attest to the above note as dictated by her. Time with Patient: Greater than 30
[2018-10-02] MEDS: FLUoxetine HCL 20 MG CAP PO SCH (17:49)
[2018-10-02] MEDS: OLANZapine 2.5 MG TAB PO SCH ×2 (17:49→21:35)
[2018-10-02] MEDS: KETOTIFEN 0.025% OPHTH DROPS 5 ML BTL BOTH EYES SCH (20:09)
[2018-10-02] MEDS: FAMOTIDINE 20 MG TAB PO SCH (20:09)
[2018-10-02] MEDS: HEPARIN SODIUM,PORCINE 5,000 UNIT/ML 1 ML VIAL SQ SCH (20:09)
[2018-10-02] MEDS: METOPROLOL TARTRATE 12.5 MG TAB PO SCH (21:34)
--- NOTE | 2018-10-02 23:40 | CONS ---
CONSULTATION DATE OF SERVICE: 10/02/2018. PURPOSE FOR CONSULTATION: Evaluate for depression. HISTORY PRESENTING ILLNESS: The patient is a 73-year-old male. He was brought to the hospital room by his daughter. He had not been eating well. He had fatigue. He was having episodes of vomiting. He had lost a significant amount of weight. There were other general health issues. From a psychiatric standpoint, it is noted that the patient has a past history of depression on and off. He notes increased depression related to grief issues. He lost his on July 07. Apparently he woke up and found his had . He then had two admissions in early August for pneumonia. He reports that he has had a lot of stress issue just dealing with arrangements for his and with estate issues, which included his having to deal with issues in [place], in that his owned a home that she inherited. Over the last 2 months especially he has had increasing problems with depression. He says he sleeps excessively, he has a lot of anxiety and does have occasional panic attacks where he will feel tightness in his chest and have difficulty breathing. He notes that at one point he used a nicotine patch to help with stopping smoking and got auditory hallucinations from that, though he does not describe other periods where he had any issues with hallucinations or delusions. He said he has had a very negative outlook, he is quite hopeless, his mood is down much of the time. He says he does get support from 4 of his children, though acknowledges that 2 other children have had significant emotional issues that have been a struggle for him. He is not currently on any psychotropic medications and has not taken any psychiatric medicines in the past. He has had some vague suicide thoughts. Mostly what he suggests is that he talks about plans for his . 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 I had a conversation with the patient's oldest daughter, who apparently is his power of meterman. She notes that there have been very significant family discord among the patient's children. There has been use of his credit card and other charges put on his account inappropriately. Apparently one child has been giving the patient methadone. It is not clear how often this has happened. There is a question that he may also have been given Ativan. She further notes there are significant substance use issues with the patient having chronically using Tramadol for over 10 years, following a surgery he had. There is a question of past alcohol issues as well. MENTAL STATUS: Patient was lying in bed with his head partly up. He gave fair eye contact at best. Psychomotor activity was slowed. Speech was monotone and soft. He spoke almost with a whispered voice, with very little intonation in his voice. His affect was flat, his mood depressed. He was significantly distressed. On cognitive exam, he was able to give a clear detailed history of events over the last 2 months, including with appropriate dates. He knew his current circumstances. ASSESSMENT: This 73-year-old male is diagnosed with major depression and substance use disorder with [address] acute withdrawal from opioids. There are significant family stress issues, as well as grief and his struggling with a number of stressful situations in his life. I will start the patient on Prozac 20 mg a day for depression. I discussed with the patient the indication for the medication, dosing strategy, and the expectation that it may take a few weeks to begin to show some improvement. The patient was in agreement with medications for depression. In addition, I will start the patient on Zyprexa 2.5 mg 3 times a day. The aim of Zyprexa is to help augment his antidepressant. In addition, I would look for Zyprexa to reduce physiologic stress response relating to his high anxiety state and panic symptoms; potentially to help reduce post- traumatic issues, and to lessen early withdrawal issues. I discussed that Zyprexa may show an early improvement, which may help relax his body as well as clear his thoughts. I discussed side effects relating to his medications, and reviewed medications issues with his daughter. The patient will need referral to a psychiatric unit when he is medically cleared. Please have Social Work address placement as there will likely not be a bed available on our unit. His daughter was in agreement with the plan of hospitalization psychiatrically for further care. I will continue to follow. MMODL / IJN: [id number] / ALYX
[2018-10-03] MEDS: SODIUM CHLORIDE 0.9% 1,000 ML IV SCH ×3 (03:54→15:51)
[2018-10-03 06:20] LABS: Anisocytosis Slight; Basophils % (A) 0 %; Eosinophils % (A) 0 %; HCT 30.8 % (39.0-53.0); HGB 9.9 gm/dL (13.0-17.5); Hypochromasia Slight; Lymphocytes # (A) 0.8 k/uL (1.0-4.8); Lymphocytes % (A) 7 %; MCH 29.1 pg (25.0-35.0); MCHC 32.2 g/dL (31.0-37.0); MCV 90.4 fL (80.0-100.0); Mean Platelet Volume 7.1; Monocytes % (A) 9 %; Neutrophils # (A) 9.2 k/uL (1.3-7.7); Neutrophils % (A) 81 %; Platelet Count 359 k/uL (150-450); RBC 3.41 m/uL (4.30-5.90); RDW 18.3 % (11.5-15.5); WBC 11.3 k/uL (3.8-10.6)
[2018-10-03 06:32] LABS: African American GFR (CKD) >90 (>60 ml/min/1.73 sqM); Anion Gap 9 mmol/L; Blood Urea Nitrogen 15 mg/dL (9-20); Calcium 8.5 mg/dL (8.4-10.2); Carbon Dioxide 26 mmol/L (22-30); Chloride 92 mmol/L (98-107); Glucose 70 mg/dL (74-99); Non-African American GFR(CKD) >90 (>60 ml/min/1.73 sqM); Potassium 4.4 mmol/L (3.5-5.1); Sodium 127 mmol/L (137-145)
[2018-10-03] MEDS: IPRATROPIUM 0.5 MG/2.5 ML NEBU INHALATION SCH ×4 (08:15→19:25)
[2018-10-03] MEDS: SYMBICORT 160-4.5 MCG INHALER INHALATION SCH ×2 (08:15→19:25)
[2018-10-03] MEDS ORDERED: BISACODYL 10 MG SUPP RECTAL STA (08:34)
[2018-10-03] MEDS: HEPARIN SODIUM,PORCINE 5,000 UNIT/ML 1 ML VIAL SQ SCH ×2 (08:41→20:42)
[2018-10-03] MEDS: FLUoxetine HCL 20 MG CAP PO SCH (08:41)
[2018-10-03] MEDS: FAMOTIDINE 20 MG TAB PO SCH ×2 (08:41→20:43)
[2018-10-03] MEDS: NICOTINE 14MG/24HR PATCH TRANSDERM SCH (08:41)
[2018-10-03] MEDS: ATORVASTATIN 10 MG TAB PO SCH (08:41)
[2018-10-03] MEDS: METOPROLOL TARTRATE 12.5 MG TAB PO SCH ×2 (08:41→20:43)
[2018-10-03] MEDS: OLANZapine 2.5 MG TAB PO SCH ×3 (08:42→21:03)
[2018-10-03] MEDS: NAPROXEN 250 MG TAB PO SCH ×2 (08:42→20:42)
[2018-10-03] MEDS ORDERED: MAGNESIUM CITRATE 296 ML BOTTLE PO ONE (10:59)
--- NOTE | 2018-10-03 11:54 | P.PN ---
<Eli Tubbs - Last Filed: 10/03/18 11:51> Subjective Progress Note Date: 10/03/18 CHIEF COMPLAINT: abdominal pain HISTORY OF PRESENT ILLNESS: Patient examined at the bedside. Reports abdominal pain is about the same as yesterday. He reports mild nausea. Denies emesis. Diet was advanced yesterday per internal medicine. He reports decreased appetite. PHYSICAL EXAM: VITAL SIGNS: Reviewed. GENERAL: Well-developed in no acute distress. HEENT: No sclera icterus. Extraocular movements grossly intact. Moist buccal mucosa. Head is atraumatic, normocephalic. ABDOMEN: Soft. Nondistended. Tenderness with palpation to right lower quadrant and periumbical region. Small umbilical hernia which is nontender and easily reducible. NEUROLOGIC: Alert and oriented. Cranial nerves II through XII grossly intact. ASSESSMENT: 1. Abdominal pain 2. Constipation per patient, CT reports abundant stool in the ascending colon 3. Umbilical hernia PLAN: Diet as tolerated. If nausea worsens, downgrade diet to liquids Dulcolax suppository 1 If no results, will repeat magnesium citrate Outpatient repair of umbilical hernia Nurse practitioner note has been reviewed by physician. Signing provider agrees with the documented findings, assessment, and plan of care. Objective - Vital Signs Vital signs: Vital Signs Temp 98.5 F 10/03/18 07:43 Pulse 108 H 10/03/18 11:48 Resp 16 10/03/18 07:43 BP 143/72 10/03/18 07:43 Pulse Ox 96 10/03/18 07:43 Intake & Output 10/02/18 10/03/18 10/03/18 18:59 06:59 18:59 Intake Total 20 Balance 20 Intake: Oral 20 Other: Voiding Method Toilet Urinal # Voids 3 1 1 # Bowel Movements 1 - Labs CBC & Chem 7: 10/03/18 06:08 10/03/18 06:08 Labs: Abnormal Lab Results - Last 24 Hours (Table) 10/03/18 10/03/18 Range/Units 06:08 06:08 WBC 11.3 H (3.8-10.6) k/uL RBC 3.41 L (4.30-5.90) m/uL Hgb 9.9 L (13.0-17.5) gm/dL Hct 30.8 L (39.0-53.0) % RDW 18.3 H (11.5-15.5) % Neutrophils # 9.2 H (1.3-7.7) k/uL Lymphocytes # 0.8 L (1.0-4.8) k/uL Sodium 127 L (137-145) mmol/L Chloride 92 L (98-107) mmol/L Glucose 70 L (74-99) mg/dL <Will Lindsey - Last Filed: 10/03/18 17:13> Subjective As above. Patient still having mild pain although improved. He states he had one small stool. Suppository was effective he states. Tolerating diet. Agree with repeating magnesium citrate. Objective - Vital Signs Vital signs: Vital Signs Temp 97.7 F 10/03/18 14:02 Pulse 104 H 10/03/18 15:55 Resp 17 10/03/18 14:02 BP 124/66 10/03/18 14:02 Pulse Ox 94 L 10/03/18 14:02 Intake & Output 10/02/18 10/03/18 10/03/18 18:59 06:59 18:59 Intake Total 20 Balance 20 Intake: Oral 20 Other: Voiding Method Toilet Urinal # Voids 3 1 1 # Bowel Movements 1 - Labs CBC & Chem 7: 10/03/18 06:08 10/03/18 12:29 Labs: Abnormal Lab Results - Last 24 Hours (Table) 10/03/18 10/03/18 10/03/18 Range/Units 06:08 06:08 12:29 WBC 11.3 H (3.8-10.6) k/uL RBC 3.41 L (4.30-5.90) m/uL Hgb 9.9 L (13.0-17.5) gm/dL Hct 30.8 L (39.0-53.0) % RDW 18.3 H (11.5-15.5) % Neutrophils # 9.2 H (1.3-7.7) k/uL Lymphocytes # 0.8 L (1.0-4.8) k/uL Sodium 127 L 130 L (137-145) mmol/L Chloride 92 L 95 L (98-107) mmol/L Glucose 70 L 70 L (74-99) mg/dL
[2018-10-03 12:58] LABS: African American GFR (CKD) >90 (>60 ml/min/1.73 sqM); Anion Gap 10 mmol/L; Blood Urea Nitrogen 17 mg/dL (9-20); Calcium 8.5 mg/dL (8.4-10.2); Carbon Dioxide 25 mmol/L (22-30); Chloride 95 mmol/L (98-107); Glucose 70 mg/dL (74-99); Non-African American GFR(CKD) >90 (>60 ml/min/1.73 sqM); Potassium 4.9 mmol/L (3.5-5.1); Sodium 130 mmol/L (137-145)
--- NOTE | 2018-10-03 16:06 | P.PN ---
Subjective 72-year-old is being treated for depression after he lost his couple months ago. Is also being treated for constipation did have small bowel movements. Patient has hypovolemic hyponatremia no significant improvement in serum sodium with IV fluids patient will continue IV fluid will repeat basic metabolic profile again tomorrow. Patient is feeling bit better today Constitutional: Denied any fatigue denied any fever. Cardio vascular: denied any chest pain, palpitations Gastrointestinal denied any nausea vomiting Pulmonary: Denied any shortness of breath cough Neurologic denied any new focal deficits All inpatient medications were reviewed and appropriate changes in these medications as dictated in the interval history and assessment and plan. Objective - Vital Signs Vital signs: Vital Signs Temp 97.7 F 10/03/18 14:02 Pulse 104 H 10/03/18 15:55 Resp 17 10/03/18 14:02 BP 124/66 10/03/18 14:02 Pulse Ox 94 L 10/03/18 14:02 Intake & Output 10/02/18 10/03/18 10/03/18 18:59 06:59 18:59 Intake Total 20 Balance 20 Intake: Oral 20 Other: Voiding Method Toilet Urinal # Voids 3 1 1 # Bowel Movements 1 - Exam PHYSICAL EXAMINATION: GENERAL: The patient is alert and oriented x3, not in any acute distress. . In built appears to be severely depressed HEENT: Pupils are round and equally reacting to light. EOMI. No scleral icterus. No conjunctival pallor. Normocephalic, atraumatic. No pharyngeal erythema. No thyromegaly. CARDIOVASCULAR: S1 and S2 present. No murmurs, rubs, or gallops. PULMONARY: Chest is clear to auscultation, no wheezing or crackles. ABDOMEN: Mildly distended tympanic although no obvious tenderness does have bowel sounds, No palpable organomegaly. MUSCULOSKELETAL: No joint swelling or deformity. EXTREMITIES: No cyanosis, clubbing, or pedal edema. NEUROLOGICAL: Gross neurological examination did not reveal any focal deficits. SKIN: No rashes. - Labs CBC & Chem 7: 10/03/18 06:08 10/03/18 12:29 Labs: Abnormal Lab Results - Last 24 Hours (Table) 10/03/18 10/03/18 10/03/18 Range/Units 06:08 06:08 12:29 WBC 11.3 H (3.8-10.6) k/uL RBC 3.41 L (4.30-5.90) m/uL Hgb 9.9 L (13.0-17.5) gm/dL Hct 30.8 L (39.0-53.0) % RDW 18.3 H (11.5-15.5) % Neutrophils # 9.2 H (1.3-7.7) k/uL Lymphocytes # 0.8 L (1.0-4.8) k/uL Sodium 127 L 130 L (137-145) mmol/L Chloride 92 L 95 L (98-107) mmol/L Glucose 70 L 70 L (74-99) mg/dL Assessment and Plan Plan: -Fatigue, hyponatremia: Hypovolemic hyponatremia from be poor by mouth intake patient continue on IV fluids and recheck the basic metabolic profile tomorrow -Significant fatigue and loss of appetite due to depression and bereavement, psychiatric started him on SSRI -Constipation: Milk of molasses as mentioned above -Dehydration: Continue with IV fluids -Tachycardia secondary to dehydration intravascular volume depletion leukocytosis reactive, tachycardia improved DVT prophylaxis with subcutaneous heparin GI prophylaxis with Pepcid
--- NOTE | 2018-10-03 16:15 | P.PN ---
Subjective Progress Note Date: 10/03/18 Principal diagnosis: Abdominal pain secondary to constipation. This is a 73-year-old white male patient with history of advanced COPD, with baseline FEV1 of 31% of predicted, a chronic history of smoking, history of multiple comorbidities including chronic hepatitis C, essential hypertension, history of solitary lung nodule, and thoracic aortic aneurysm. Patient carries [id number] smoking history, was down to half a pack a day. On a combination of Advair and Spiriva and nebulized bronchodilators on as-needed basis, not on any home oxygen. Patient follows with Dr. Anderson in our office. He presented to the music she remains to with complaints of abdominal pain, nausea and vomiting for approximately 24 hours. His pain is around the umbilicus. He does state he has a history of hernia there. No blood noted in his emesis. Computed tomography scan of the abdomen revealed an abundant stool in the ascending colon. No other acute findings. He is seen today in consultation on the regular medical floor. He is currently awake and alert in no acute distress. He is still having some ongoing discomfort with abdominal fullness and tenderness on palpation. No complaints of shortness of breath, cough or congestion. He is maintaining O2 saturations in the low 90s on 3 L/m per nasal cannula. He is afebrile. White count 11.5. Hemoglobin 9.2. Creatinine 0.46. He has been given citrate of magnesium. The patient is seen today October 03 2018 in follow-up on the regular medical floor. He is currently resting comfortably in bed. Awake and alert in no acute distress. He states he did have a bowel movement this morning. Passing some flatus. Less abdominal discomfort. He is receiving another dose of citrate of magnesia. No pulmonary complaints he is maintaining O2 saturations in the 90s on 3 L/m per nasal cannula. He remains afebrile. Continued on Symbicort. Sodium 1:30. Potassium 4.9. Creatinine 0.76. Objective - Vital Signs Vital signs: Vital Signs Temp 97.7 F 10/03/18 14:02 Pulse 104 H 10/03/18 15:55 Resp 17 10/03/18 14:02 BP 124/66 10/03/18 14:02 Pulse Ox 94 L 10/03/18 14:02 Intake & Output 10/02/18 10/03/18 10/03/18 18:59 06:59 18:59 Intake Total 20 Balance 20 Intake: Oral 20 Other: Voiding Method Toilet Urinal # Voids 3 1 1 # Bowel Movements 1 - Exam GENERAL EXAM: Alert, pleasant 73-year-old gentleman, comfortable in no apparent distress. On 2 L nasal cannula. HEAD: Normocephalic. EYES: Normal reaction of pupils, equal size. NOSE: Clear with pink turbinates. THROAT: No erythema or exudates. NECK: No masses, no JVD. CHEST: No chest wall deformity. LUNGS: Equal air entry with no crackles, wheeze, rhonchi or dullness. Diminished. CVS: S1 and S2 normal with no audible murmur, regular rhythm. ABDOMEN: No hepatosplenomegaly, normal bowel sounds, some fullness and distention. SPINE: No scoliosis or deformity SKIN: No rashes CENTRAL NERVOUS SYSTEM: No focal deficits, tone is normal in all 4 extremities. EXTREMITIES: There is no peripheral edema. No clubbing, no cyanosis. Peripheral pulses are intact. - Labs CBC & Chem 7: 10/03/18 06:08 10/03/18 12:29 Labs: Abnormal Lab Results - Last 24 Hours (Table) 10/03/18 10/03/18 10/03/18 Range/Units 06:08 06:08 12:29 WBC 11.3 H (3.8-10.6) k/uL RBC 3.41 L (4.30-5.90) m/uL Hgb 9.9 L (13.0-17.5) gm/dL Hct 30.8 L (39.0-53.0) % RDW 18.3 H (11.5-15.5) % Neutrophils # 9.2 H (1.3-7.7) k/uL Lymphocytes # 0.8 L (1.0-4.8) k/uL Sodium 127 L 130 L (137-145) mmol/L Chloride 92 L 95 L (98-107) mmol/L Glucose 70 L 70 L (74-99) mg/dL Assessment and Plan Assessment: Impression: #1 Abdominal discomfort secondary to constipation. Surgical services has seen and evaluated patient. Mag citrate was given. Clear liquids for now. No surgical interventions at this time. #2. History of advanced COPD, stage III/IV with baseline FEV1 value 31% of predicted. #3. Chronic and ongoing nicotine dependence, patient carries [id number] smoking history #4. Hyperlipidemia #5. Chronic hepatitis C #6. Hypertension #7. Ascending thoracic aortic aneurysm, being followed in the outpatient basis, there was previously measuring 4.5 x 4.4 cm, thoracic CTA was completed showing dimension of 4.6 cm anterior-posterior at a maximum, with no evidence of aortic dissection #8. Chronic back pain #9. Solitary lung nodule in the left upper lobe previously measuring 8 mm in size, being followed in the outpatient basis by Dr. Anderson. Thoracic CTA chest also revealed a spiculated lesion at the superior segment of the right lower lobe measuring 1 cm #10. Psoriasis the #11 Depression secondary to the passing of his spouse a few months ago. Plan: The patient was seen and evaluated by Dr. Murrieta. He is currently stable from the pulmonary standpoint. We'll continue to follow and make further recommendations based on his clinical status. I, the cosigning physician, performed a history & physical examination of the patient. Lungs sounds are clear, diminished. Maintaining good O2 saturations in the 90s on 2 L/m per nasal cannula. I discussed the assessment and plan of care with my nurse practitioner, Joi Bustamante. I attest to the above note as dictated by her.
[2018-10-03] MEDS: KETOTIFEN 0.025% OPHTH DROPS 5 ML BTL BOTH EYES SCH (20:42)
[2018-10-04] MEDS: SODIUM CHLORIDE 0.9% 1,000 ML IV SCH ×5 (02:02→23:11)
[2018-10-04 02:22] LABS: Glucose,Whole Blood 99 mg/dL (75-99)
[2018-10-04] MEDS: traMADol 50 MG TAB PO PRN (02:51)
[2018-10-04] MEDS: IPRATROPIUM 0.5 MG/2.5 ML NEBU INHALATION SCH ×4 (08:54→20:02)
[2018-10-04] MEDS: SYMBICORT 160-4.5 MCG INHALER INHALATION SCH ×2 (08:54→20:02)
[2018-10-04] MEDS: NICOTINE 14MG/24HR PATCH TRANSDERM SCH (09:18)
[2018-10-04] MEDS: FAMOTIDINE 20 MG TAB PO SCH ×2 (09:18→21:06)
[2018-10-04] MEDS: ATORVASTATIN 10 MG TAB PO SCH (09:18)
[2018-10-04] MEDS: METOPROLOL TARTRATE 12.5 MG TAB PO SCH ×2 (09:18→21:06)
[2018-10-04] MEDS: FLUoxetine HCL 20 MG CAP PO SCH (09:18)
[2018-10-04] MEDS: HEPARIN SODIUM,PORCINE 5,000 UNIT/ML 1 ML VIAL SQ SCH ×2 (10:32→21:06)
[2018-10-04] MEDS: OLANZapine 2.5 MG TAB PO SCH ×3 (10:35→21:06)
[2018-10-04] MEDS: NAPROXEN 250 MG TAB PO SCH ×2 (10:36→21:06)
--- NOTE | 2018-10-04 11:34 | P.PN ---
Subjective Progress Note Date: 10/04/18 CHIEF COMPLAINT: Constipation HISTORY OF PRESENT ILLNESS: The patient is a 73-year-old male who presented with constipation and umbilical hernia. He reports six bowel movements. He feels much better. He reports having an umbilical hernia that was supposed to be fixed but delayed due to COPD and concomitant pneumonia with MRSA. He ambulates with a walker. He denies any moderate abdominal pain from his hernia of 3-cm. ROS: No reports of nausea and vomiting. No bowel movements. No fevers or chills. No new chest pain. No productive sputum PHYSICAL EXAM: VITAL SIGNS: Reviewed CONSTITUTIONAL: Well developed and in no acute distress. EYES: Conjuctivae without sclera icterus. Extraocular movements grossly intact. HEAD, EARS, NOSE, THROAT: Moist buccal mucosa. Head is atraumatic, normocephal ic. Hears conversational speech. No nasal drainage. NECK: Supple. No thyroidomegaly. RESPIRATORY: Non-labored respirations and equal bilateral excursions. CARDIOVASCULAR: Palpable 2+ radial pulses. Regular rate. Regular rhythm. ABDOMEN: Tender. Soft. 3 cm umbilical hernia. MUSCULOSKELETAL: No gross deformity of the lower extremities noted. No clubbing. No cyanosis. SKIN: Good skin turgor. Well perfused. NEUROLOGIC: Cranial nerves I through XII grossly intact. No focal or lateralizing signs. PSYCH: Appropriate affect. Alert and oriented to person, place and time. CLINCAL LABS: White blood cell count elevated 11,300 ASSESSMENT: 1. Constipation 2. Umbilical hernia PLAN: 1. Agreeable with discharge from a surgical standpoint when medically stable 2. Follow up with Dr. Lindsey as outpatient 3. Recommend stool softeners for home discharge. Objective - Vital Signs Vital signs: Vital Signs Temp 97.4 F L 10/04/18 09:08 Pulse 106 H 10/04/18 09:08 Resp 20 10/04/18 09:08 BP 120/61 10/04/18 09:08 Pulse Ox 95 10/04/18 09:08 Intake & Output 10/03/18 10/04/18 10/04/18 18:59 06:59 18:59 Other: Voiding Method Toilet Toilet Urinal Urinal # Voids 1 1 1 # Bowel Movements 1 - Labs CBC & Chem 7: 10/03/18 06:08 08/16/19 12:29 Labs: Abnormal Lab Results - Last 24 Hours (Table) 10/03/18 Range/Units 12:29 Sodium 130 L (137-145) mmol/L Chloride 95 L (98-107) mmol/L Glucose 70 L (74-99) mg/dL Assessment and Plan (1) Constipation Current Visit: Yes Status: Acute Code(s): K59.00 - CONSTIPATION, UNSPECIFIED SNOMED Code(s): 34491083 (2) Umbilical hernia Current Visit: Yes Status: Acute Code(s): K42.9 - UMBILICAL HERNIA WITHOUT O BSTRUCTION OR GANGRENE SNOMED Code(s): 046866132 (3) Hyponatremia Current Visit: Yes Status: Acute Code(s): E87.1 - HYPO-OSMOLALITY AND HYPONATREMIA SNOMED Code(s): 14409353
--- NOTE | 2018-10-04 12:26 | P.DS ---
Providers Date of admission: 10/03/18 07:48 Attending physician: Lindsey Page Consults: 10/02/18 02:45 Consult Physician Routine Consulting Provider: Lino Murrieta Consult Reason/Comments: your patient Do you want consulting provider notified?: Yes Consult Physician Routine Consulting Provider: Will Lindsey Consult Reason/Comments: umbilical hernia Do you want consulting provider notified?: Yes 10/02/18 13:06 Consult Physician Routine Consulting Provider: Valentino Swift Consult Reason/Comments: Depression, Failure to Thrive Do you want consulting provider notified?: Yes Primary care physician: [facility] Course: 72-year-old is being treated for depression after he lost his couple months ago. Is also being treated for constipation did have small bowel movements. Patient has hypovolemic hyponatremia no significant improvement in serum sodium with IV fluids patient will continue IV fluid will repeat basic metabolic profile again tomorrow. Patient is feeling bit better today 10/04/2018 Patient comes patient is all the patient dehydration improved serum creatinine improved. Patient is doing much better today while walking in the hallways depression is much better as well. I last psychiatric evaluate the patient was recommended discharged to psychiatric facility when cleared with medically. Now that he is doing really well. He may not need to go to psychiatric facility. If cleared by psychiatric patient will be discharged home. If not to psychiatric facility. Patient is medically stable to be discharged PHYSICAL EXAMINATION: GENERAL: The patient is alert and oriented x3, not in any acute distress. thin built HEENT: Pupils are round and equally reacting to light. EOMI. No scleral icterus. No conjunctival pallor. Normocephalic, atraumatic. No pharyngeal erythema. No thyromegaly. CARDIOVASCULAR: S1 and S2 present. No murmurs, rubs, or gallops. PULMONARY: Chest is clear to auscultation, no wheezing or crackles. ABDOMEN: Soft, nontender, nondistended, normoactive bowel sounds. No palpable organomegaly. MUSCULOSKELETAL: No joint swelling or deformity. EXTREMITIES: No cyanosis, clubbing, or pedal edema. NEUROLOGICAL: Gross neurological examination did not reveal any focal deficits. SKIN: No rashes. Assessment and Plan Plan: -Fatigue, hyponatremia: Hypovolemic hyponatremia from be poor by mouth intake patient continue on IV fluids Irina now -Significant fatigue and loss of appetite due to depression and bereavement, psychiatric started him on SSRIand Zyprexa -Constipation: Milk of molasses resolved now -Dehydration:improved now -Tachycardia secondary to dehydration intravascular volume depletion leukocytosis reactive, tachycardia improved Plan - Discharge Summary New Discharge Prescriptions: New Metoprolol Tartrate [Lopressor] 25 mg PO BID #60 tab FLUoxetine HCL [PROzac] 20 mg PO DAILY #30 cap OLANZapine [ZyPREXA] 2.5 mg PO TID #90 tab Docusate [Colace] 100 mg PO DAILY #20 capsule Continue traMADol HCL [Ultram] 50 mg PO BID PRN PRN Reason: Pain Albuterol Inhaler [Ventolin Hfa Inhaler] 2 puff INHALATION RT-Q6H PRN PRN Reason: Shortness Of Breath Tiotropium [place] [Spiriva] 1 cap INHALATION RT-DAILY Simvastatin [Zocor] 20 mg PO DAILY Olopatadine HCl 1 applic BOTH EYES HS Mylanta [id number] Chew 1 tab PO PC-TID Multivitamins, Thera [Multivitamin (formulary)] 1 tab PO DAILY Ergocalciferol [Vitamin D2 (DRISDOL)] 50,000 unit PO Q30D Fluticasone/Salmeterol [Advair 500-50 Diskus] 1 puff INHALATION RT-BID Albuterol Nebulized [Ventolin Nebulized] 2.5 mg INHALATION RT-Q6H PRN PRN Reason: Shortness Of Breath Nicotine 14Mg/24Hr Patch [Habitrol] 1 patch TRANSDERM DAILY 30 Days #30 patch Discontinued Naproxen 500 mg PO BID Discharge Medication List Albuterol Inhaler [Ventolin Hfa Inhaler] 2 puff INHALATION RT-Q6H PRN 08/17/18 [History] Albuterol Nebulized [Ventolin Nebulized] 2.5 mg INHALATION RT-Q6H PRN 08/17/18 [History] Ergocalciferol [Vitamin D2 (DRISDOL)] 50,000 unit PO Q30D 08/17/18 [History] Fluticasone/Salmeterol [Advair 500-50 Diskus] 1 puff INHALATION RT-BID 08/17/18 [History] Multivitamins, Thera [Multivitamin (formulary)] 1 tab PO DAILY 08/17/18 [History ] Mylanta [id number] Chew 1 tab PO PC-TID 08/17/18 [History] Olopatadine HCl 1 applic BOTH EYES HS 08/17/18 [History] Simvastatin [Zocor] 20 mg PO DAILY 08/17/18 [History] Tiotropium [place] [Spiriva] 1 cap INHALATION RT-DAILY 08/17/18 [History] traMADol HCL [Ultram] 50 mg PO BID PRN 08/17/18 [History] Nicotine 14Mg/24Hr Patch [Habitrol] 1 patch TRANSDERM DAILY 30 Days #30 patch 08/22/18 [Rx] Docusate [Colace] 100 mg PO DAILY #20 capsule 10/04/18 [Rx] FLUoxetine HCL [PROzac] 20 mg PO DAILY #30 cap 10/04/18 [Rx] Metoprolol Tartrate [Lopressor] 25 mg PO BID #60 tab 10/04/18 [Rx] OLANZapine [ZyPREXA] 2.5 mg PO TID #90 tab 10/04/18 [Rx] Follow up Appointment(s)/Referral(s): Will Lindsey MD [Medical Doctor] - 1 Week Gerber Grissom MD [Primary Care Provider] - 3 Days [facility] Visiting Nurse, [NON-STAFF] - As Needed Discharge Disposition: HOME SELF-CARE
--- NOTE | 2018-10-04 12:53 | P.PN ---
Subjective Progress Note Date: 10/04/18 This is a 73-year-old white male patient with history of advanced COPD, with baseline FEV1 of 31% of predicted, a chronic history of smoking, history of multiple comorbidities including chronic hepatitis C, essential hypertension, history of solitary lung nodule, and thoracic aortic aneurysm. Patient carries [id number] smoking history, was down to half a pack a day. On a combination of Advair and Spiriva and nebulized bronchodilators on as-needed basis, not on any home oxygen. Patient follows with Dr. Anderson in our office. He presented to the music she remains to with complaints of abdominal pain, nausea and vomiting for approximately 24 hours. His pain is around the umbilicus. He does state he has a history of hernia there. No blood noted in his emesis. Computed tomography scan of the abdomen revealed an abundant stool in the ascending colon. No other acute findings. He is seen today in consultation on the regular medical floor. He is currently awake and alert in no acute distress. He is still having some ongoing discomfort with abdominal fullness and tenderness on palpation. No complaints of shortness of breath, cough or congestion. He is maintaining O2 saturations in the low 90s on 3 L/m per nasal cannula. He is afebrile. White count 11.5. Hemoglobin 9.2. Creatinine 0.46. He has been given citrate of magnesium. The patient is seen today October 03 2018 in follow-up on the regular medical floor. He is currently resting comfortably in bed. Awake and alert in no acute distress. He states he did have a bowel movement this morning. Passing some flatus. Less abdominal discomfort. He is receiving another dose of citrate of magnesia. No pulmonary complaints he is maintaining O2 saturations in the 90s on 3 L/m per nasal cannula. He remains afebrile. Continued on Symbicort. Sodium 1:30. Potassium 4.9. Creatinine 0.76. On today's evaluation of 10/04/2018 the patient is no specific complaints. The patient had excellent bowel activity. No abdominal distention. No abdominal pain. No nausea or vomiting. Hemodynamically stable. No chest pain. No significant shortness of breath. The patient seems to have recovered from his underlying constipation. He has COPD who is currently inactive in stable Objective - Vital Signs Vital signs: Vital Signs Temp 97.4 F L 10/04/18 09:08 Pulse 106 H 10/04/18 09:08 Resp 20 10/04/18 09:08 BP 120/61 10/04/18 09:08 Pulse Ox 95 10/04/18 09:08 Intake & Output 10/03/18 10/04/18 10/04/18 18:59 06:59 18:59 Other: Voiding Method Toilet Toilet Urinal Urinal # Voids 1 1 1 # Bowel Movements 1 - Exam GENERAL EXAM: Alert, pleasant 73-year-old gentleman, comfortable in no apparent distress. On 2 L nasal cannula. HEAD: Normocephalic. EYES: Normal reaction of pupils, equal size. NOSE: Clear with pink turbinates. THROAT: No erythema or exudates. NECK: No masses, no JVD. CHEST: No chest wall deformity. LUNGS: Equal air entry with no crackles, wheeze, rhonchi or dullness. Diminished. CVS: S1 and S2 normal with no audible murmur, regular rhythm. ABDOMEN: No hepatosplenomegaly, normal bowel sounds, some fullness and distention. SPINE: No scoliosis or deformity SKIN: No rashes CENTRAL NERVOUS SYSTEM: No focal deficits, tone is normal in all 4 extremities. EXTREMITIES: There is no peripheral edema. No clubbing, no cyanosis. Peripheral pulses are intact. - Labs CBC & Chem 7: 10/03/18 06:08 10/03/18 12:29 Labs: Abnormal Lab Results - Last 24 Hours (Table) 10/03/18 Range/Units 12:29 Sodium 130 L (137-145) mmol/L Chloride 95 L (98-107) mmol/L Glucose 70 L (74-99) mg/dL Assessment and Plan Plan: #1 Abdominal discomfort secondary to constipation. The constipation is recovered and the patient is a symptomatically at this point in time #2. History of advanced COPD, stage III/IV with baseline FEV1 value 31% of predicted. #3. Chronic and ongoing nicotine dependence, patient carries [id number] smoki ng history #4. Hyperlipidemia #5. Chronic hepatitis C #6. Hypertension #7. Ascending thoracic aortic aneurysm, being followed in the outpatient basis, there was previously measuring 4.5 x 4.4 cm, thoracic CTA was completed showing dimension of 4.6 cm anterior-posterior at a maximum, with no evidence of aortic dissection #8. Chronic back pain #9. Solitary lung nodule in the left upper lobe previously measuring 8 mm in size, being followed in the outpatient basis by Dr. Anderson. Thoracic CTA chest also revealed a spiculated lesion at the superior segment of the right lower lobe measuring 1 cm #10. Psoriasis the #11 Depression secondary to the passing of his spouse a few months ago. Plan The patient's condition is stable. Discharge from the pulmonary standpoint. Please clear with surgery and medicine.
[2018-10-04] MEDS: KETOTIFEN 0.025% OPHTH DROPS 5 ML BTL BOTH EYES SCH (21:06)
[2018-10-05] MEDS: SYMBICORT 160-4.5 MCG INHALER INHALATION SCH ×2 (08:10→19:32)
[2018-10-05] MEDS: IPRATROPIUM 0.5 MG/2.5 ML NEBU INHALATION SCH ×4 (08:10→19:31)
[2018-10-05] MEDS: NICOTINE 14MG/24HR PATCH TRANSDERM SCH (10:14)
[2018-10-05] MEDS: FLUoxetine HCL 20 MG CAP PO SCH (10:14)
[2018-10-05] MEDS: NAPROXEN 250 MG TAB PO SCH ×2 (10:14→20:40)
[2018-10-05] MEDS: FAMOTIDINE 20 MG TAB PO SCH ×2 (10:14→20:39)
[2018-10-05] MEDS: METOPROLOL TARTRATE 12.5 MG TAB PO SCH (10:14)
[2018-10-05] MEDS: HEPARIN SODIUM,PORCINE 5,000 UNIT/ML 1 ML VIAL SQ SCH ×2 (10:14→20:39)
[2018-10-05] MEDS: ATORVASTATIN 10 MG TAB PO SCH (10:14)
[2018-10-05 10:29] LABS: African American GFR (CKD) >90 (>60 ml/min/1.73 sqM); Anion Gap 6 mmol/L; Blood Urea Nitrogen 13 mg/dL (9-20); Calcium 8.7 mg/dL (8.4-10.2); Carbon Dioxide 33 mmol/L (22-30); Chloride 98 mmol/L (98-107); Glucose 87 mg/dL (74-99); Non-African American GFR(CKD) >90 (>60 ml/min/1.73 sqM); Potassium 4.2 mmol/L (3.5-5.1); Sodium 137 mmol/L (137-145)
[2018-10-05] MEDS: OLANZapine 2.5 MG TAB PO SCH ×3 (10:53→21:26)
--- NOTE | 2018-10-05 12:02 | CONS ---
DATE OF SERVICE: 10/04/2018 CONSULTATION PURPOSE FOR CONSULTATION: Evaluate for depression. INTERVAL HISTORY: The patient has been doing fair. He had a quiet evening last night. He continues to be rather down in his mood. He talks about being eager to go home. He said he is willing to cooperate with mental health care, though he feels that his first step is to get home and take care of particular business. It is noteworthy that he has had some issues of hallucinations. Two nights ago, he was talking to nursing about feeling bugs were crawling on his skin. Yesterday, he talked about seeing water coming down from a door. The nurse had to have him walk to the door and look at the door to see that was not happening. Also, he talked about seeing an animal moving about. He continues to be quite depressed. He talks about stress issues in his life currently, mainly dealing with various issues with several of his children. He believes that people were trying to empty his bank accounts including his oldest daughter who he named as a guardian. He was vague about his opioid use, though the best I am able to tell he had been using tramadol regularly over the last 10 years up to 6 tablets a day. The patient himself said he recognized the problems with that and tapered himself down to 2 tablets a day. He was vague about how he obtained methadone which apparently was given to him by 1 of his children. He reports that his sleep is down. He tolerates his psychotropic medications. It is noted that I had a telephone conversation with the patient's daughter. She described that he has had significant mood changes where she will see him in the morning time and he will be in a very good mood. He would be bright, social, interactive and positive. Then he will contact her later in the day and will have a very angry tone. He will be accusatory. He will be loud. She says that this has been a fairly persistent mood change on a daily basis. She also notes that at home he struggles taking care of his oxygen. He apparently does have some visiting health home care, though the daughter noted that when the health care providers will call to make arrangements to come in a daughter who is living in the house will refuse to answer the phone and thus he does not get the services again. She notes that he has been losing weight progressively. It is noted that on this admission October 02, his weight was 61.7 kg and today at 7:00 pm his weight was 57.3 kg. When I saw him, he was initially lying in bed, then he sat up on the edge of the bed and then walked down the cuello as I was leaving. He talked quite a bit. In fact, he seemed to have pressured speech and talked somewhat rapidly and continued to be quite distressed as he talked. He had an intense manner, mostly what he talked about was all of the problems he has been having since his . He jump from subject to subject. His mood was depressed. He seemed moderately distressed. Noted that I did see him later in the afternoon, which may be reflective of issues that his daughter Blanca notes about his mood changes. ASSESSMENT: I will continue the primary diagnoses: 1. Major depression. 2. Opioid withdrawal. He appears to have significant active withdrawal symptoms. It is noteworthy that he presents as being quite depressed. In addition, he has very apparently of quite prominent diurnal mood variation with a decrease mood in the evening. He has also had hallucinations which may relate mood as much to withdrawal as depression. I talked with the patient about the option of a psychiatric admission. He said he would consider it, though not until he is able to go home and address some of his home issues. When I talked with the patient's daughter. I reviewed these issues and her main concern is that he does not have ability to take care of himself when he is home independently. In that regard, she indicates that the other children living in the home will be evicted. She is in the process of going through the courts for that. I will anticipates seeing the patient in the morning and review his progress. MMODL / IJN: [id number] / MTDD
--- NOTE | 2018-10-05 13:26 | P.PN ---
Subjective 72-year-old is being treated for depression after he lost his couple months ago. Is also being treated for constipation did have small bowel movements. Patient has hypovolemic hyponatremia no significant improvement in serum sodium with IV fluids patient will continue IV fluid will repeat basic metabolic profile again tomorrow. Patient is feeling bit better today 10/04/2018 Patient comes patient is all the patient dehydration improved serum creatinine improved. Patient is doing much better today while walking in the hallways depression is much better as well. I last psychiatric evaluate the patient was recommended discharged to psychiatric facility when cleared with medically. Now that he is doing really well. He may not need to go to psychiatric facility. If cleared by psychiatric patient will be discharged home. If not to psychiatric facility. Patient is medically stable to be discharged 10/05/2018 Patient was having significant hallucinations patient appears to have some withdrawals from my opiates. Patient apparently was using methadone and other opiates, patient's family situation is extremely poor. Psychiatry evaluated the patient today again in the recommending patient hospitalization to psychiatric floor which will happen tomorrow. Did discuss with the daughter. Constitutional: Denied any fatigue denied any fever. Cardio vascular: denied any chest pain, palpitations Gastrointestinal denied any nausea vomiting Pulmonary: Denied any shortness of breath cough Neurologic denied any new focal deficits All inpatient medications were reviewed and appropriate changes in these medications as dictated in the interval history and assessment and plan. Objective - Vital Signs Vital signs: Vital Signs Temp 98.0 F 10/05/18 07:00 Pulse 86 10/05/18 11:32 Resp 18 10/05/18 07:00 BP 128/63 10/05/18 07:00 Pulse Ox 94 L 10/05/18 07:00 Intake & Output 10/04/18 10/05/18 10/05/18 18:59 06:59 18:59 Intake Total 200 Balance 200 Weight 57.3 kg Intake: Oral 200 Other: Voiding Method Toilet Toilet Urinal # Voids 3 1 - Exam PHYSICAL EXAMINATION: GENERAL: The patient is alert and oriented x3, not in any acute distress. . In built appears to be severely depressed HEENT: Pupils are round and equally reacting to light. EOMI. No scleral icterus. No conjunctival pallor. Normocephalic, atraumatic. No pharyngeal erythema. No thyromegaly. CARDIOVASCULAR: S1 and S2 present. No murmurs, rubs, or gallops. PULMONARY: Chest is clear to auscultation, no wheezing or crackles. ABDOMEN: Mildly distended tympanic although no obvious tenderness does have bowel sounds, No palpable organomegaly. MUSCULOSKELETAL: No joint swelling or deformity. EXTREMITIES: No cyanosis, clubbing, or pedal edema. NEUROLOGICAL: Gross neurological examination did not reveal any focal deficits. SKIN: No rashes. - Labs CBC & Chem 7: 10/03/18 06:08 10/05/18 10:12 Labs: Abnormal Lab Results - Last 24 Hours (Table) 10/05/18 Range/Units 10:12 Carbon Dioxide 33 H (22-30) mmol/L Creatinine 0.58 L (0.66-1.25) mg/dL Assessment and Plan Plan: -Fatigue, hyponatremia: Hypovolemic hyponatremia from be poor by mouth intake patient continue on IV fluids and recheck the basic metabolic profile tomorrow -Significant fatigue and loss of appetite due to depression and bereavement, psychiatric started him on SSRI, patient is having hallucinations further management doesn't have mentioned above -Opiate abuse. -Constipation: Resolved -Dehydration: Continue with IV fluids -Tachycardia secondary to dehydration intravascular volume depletion leukocytosis reactive, tachycardia improved DVT prophylaxis with subcutaneous heparin GI prophylaxis with Pepcid Patient will be discharged to inpatient psychiatric floor tomorrow
--- NOTE | 2018-10-05 13:34 | P.PN ---
Subjective Progress Note Date: 10/05/18 This is a 73-year-old white male patient with history of advanced COPD, with baseline FEV1 of 31% of predicted, a chronic history of smoking, history of multiple comorbidities including chronic hepatitis C, essential hypertension, history of solitary lung nodule, and thoracic aortic aneurysm. Patient carries [id number] smoking history, was down to half a pack a day. On a combination of Advair and Spiriva and nebulized bronchodilators on as-needed basis, not on any home oxygen. Patient follows with Dr. Anderson in our office. He presented to the music she remains to with complaints of abdominal pain, nausea and vomiting for approximately 24 hours. His pain is around the umbilicus. He does state he has a history of hernia there. No blood noted in his emesis. Computed tomography scan of the abdomen revealed an abundant stool in the ascending colon. No other acute findings. He is seen today in consultation on the regular medical floor. He is currently awake and alert in no acute distress. He is still having some ongoing discomfort with abdominal fullness and tenderness on palpation. No complaints of shortness of breath, cough or congestion. He is maintaining O2 saturations in the low 90s on 3 L/m per nasal cannula. He is afebrile. White count 11.5. Hemoglobin 9.2. Creatinine 0.46. He has been given citrate of magnesium. The patient is seen today October 03 2018 in follow-up on the regular medical floor. He is currently resting comfortably in bed. Awake and alert in no acute distress. He states he did have a bowel movement this morning. Passing some flatus. Less abdominal discomfort. He is receiving another dose of citrate of magnesia. No pulmonary complaints he is maintaining O2 saturations in the 90s on 3 L/m per nasal cannula. He remains afebrile. Continued on Symbicort. Sodium 1:30. Potassium 4.9. Creatinine 0.76. On today's evaluation of 10/04/2018 the patient is no specific complaints. The patient had excellent bowel activity. No abdominal distention. No abdominal pain. No nausea or vomiting. Hemodynamically stable. No chest pain. No significant shortness of breath. The patient seems to have recovered from his underlying constipation. He has COPD who is currently inactive in stable On 10/05/2018, the patient not having any pulmonary issues in no constipation issues. Nevertheless the patient is feeling depressed and he was having some hallucinations. This could have been a drug withdrawal. The patient was using methadone and other opiates and his family situation is extremely poor. Second he was involved in the patient is being considered for inpatient psychiatric evaluation with the next 24 hours. Otherwise the patient is resting comfortably in bed. No other significant events or issues from the GI or the pulmonary standpoint. Objective - Vital Signs Vital signs: Vital Signs Temp 98.0 F 10/05/18 07:00 Pulse 86 10/05/18 11:32 Resp 18 10/05/18 07:00 BP 128/63 10/05/18 07:00 Pulse Ox 94 L 10/05/18 07:00 Intake & Output 10/04/18 10/05/18 10/05/18 18:59 06:59 18:59 Intake Total 200 Balance 200 Weight 57.3 kg Intake: Oral 200 Other: Voiding Method Toilet Toilet Urinal # Voids 3 1 - Exam GENERAL EXAM: Alert, pleasant 73-year-old gentleman, comfortable in no apparent distress. On 2 L nasal cannula. HEAD: Normocephalic. EYES: Normal reaction of pupils, equal size. NOSE: Clear with pink turbinates. THROAT: No erythema or exudates. NECK: No masses, no JVD. CHEST: No chest wall deformity. LUNGS: Equal air entry with no crackles, wheeze, rhonchi or dullness. Diminished. CVS: S1 and S2 normal with no audible murmur, regular rhythm. ABDOMEN: No hepatosplenomegaly, normal bowel sounds, some fullness and distention. SPINE: No scoliosis or deformity SKIN: No rashes CENTRAL NERVOUS SYSTEM: No focal deficits, tone is normal in all 4 extremities. EXTREMITIES: There is no peripheral edema. No clubbing, no cyanosis. Peripheral pulses are intact. - Labs CBC & Chem 7: 10/03/18 06:08 10/05/18 10:12 Labs: Abnormal Lab Results - Last 24 Hours (Table) 10/05/18 Range/Units 10:12 Carbon Dioxide 33 H (22-30) mmol/L Creatinine 0.58 L (0.66-1.25) mg/dL Assessment and Plan Plan: #1 Abdominal discomfort secondary to constipation. The constipation is recovered and the patient is a symptomatically at this point in time #2. History of advanced COPD, stage III/IV with baseline FEV1 value 31% of p redicted. #3. Chronic and ongoing nicotine dependence, patient carries [id number] smoking history #4. Hyperlipidemia #5. Chronic hepatitis C #6. Hypertension #7. Ascending thoracic aortic aneurysm, being followed in the outpatient basis, there was previously measuring 4.5 x 4.4 cm, thoracic CTA was completed showing dimension of 4.6 cm anterior-posterior at a maximum, with no evidence of aortic dissection #8. Chronic back pain #9. Solitary lung nodule in the left upper lobe previously measuring 8 mm in size, being followed in the outpatient basis by Dr. Anderson. Thoracic CTA chest also revealed a spiculated lesion at the superior segment of the right lower lobe measuring 1 cm #10. Psoriasis the #11 Depression secondary to the passing of his spouse a few months ago. #12 hallucinations related to depression versus drug withdrawal Plan The patient's condition is stable. Discharge from the pulmonary standpoint. Please clear with surgery and medicine. The patient is being evaluated psychiatrically and the patient is being considered for inpatient psychiatric evaluation and treatment.
--- NOTE | 2018-10-05 14:24 | XR ---
EXAMINATION TYPE: XR chest 1V DATE OF EXAM: 10/05/2018 HISTORY: pul edema. REFERENCE: Previous study dated 09/03/2018. FINDINGS: The lungs are overinflated. There is improved aeration of the right lung. The heart is not enlarged. Pleural spaces are clear. IMPRESSION: 1. COPD. 2. IMPROVING RIGHT-SIDED PNEUMONIA.
--- NOTE | 2018-10-05 15:01 | P.PN ---
Subjective Progress Note Date: 10/05/18 CHIEF COMPLAINT: Constipation HISTORY OF PRESENT ILLNESS: The patient is a 73-year-old male who presented with constipation and umbilical hernia. He is having bowel movements. Discharge was held for depression and hallucinations. ROS: No reports of nausea and vomiting. Has bowel movements. No fevers or chills. No new chest pain. PHYSICAL EXAM: VITAL SIGNS: Reviewed CONSTITUTIONAL: Well developed and in no acute distress. EYES: Conjuctivae without sclera icterus. Extraocular movements grossly intact. HEAD, EARS, NOSE, THROAT: Moist buccal mucosa. Head is atraumatic, normocephalic. Hears conversational speech. No nasal drainage. NECK: Supple. No thyroidomegaly. RESPIRATORY: Non-labored respirations and equal bilateral excursions. CARDIOVASCULAR: Palpable 2+ radial pulses. Regular rate. Regular rhythm. ABDOMEN: Non-tender. Non-distended. Reducible umbilical hernia. MUSCULOSKELETAL: No gross deformity of the lower extremities noted. No clubbing. No cyanosis. SKIN: Good skin turgor. Well perfused. NEUROLOGIC: Cranial nerves I through XII grossly intact. No focal or lat eralizing signs. PSYCH: Appropriate affect. Alert and oriented to person, place and time. CLINCAL LABS: Sodium of 130 now up to 137. ASSESSMENT: 1. Constipation 2. Umbilical hernia 3. Depressive disorder PLAN: 1. No surgical intervention for umbilical hernia 2. Continue stool softeners 3. Agreeable with transfer to [facility]HU. Objective - Vital Signs Vital signs: Vital Signs Temp 98.0 F 10/05/18 07:00 Pulse 86 10/05/18 11:32 Resp 18 10/05/18 07:00 BP 128/63 10/05/18 07:00 Pulse Ox 94 L 10/05/18 07:00 Intake & Output 10/04/18 10/05/18 10/05/18 18:59 06:59 18:59 Intake Total 200 Balance 200 Weight 57.3 kg Intake: Oral 200 Other: Voiding Method Toilet Toilet Urinal # Voids 3 1 - Labs CBC & Chem 7: 10/03/18 06:08 10/05/18 10:12 Labs: Abnormal Lab Results - Last 24 Hours (Table) 10/05/18 Range/Units 10:12 Carbon Dioxide 33 H (22-30) mmol/L Creatinine 0.58 L (0.66-1.25) mg/dL Assessment and Plan (1) Constipation Current Visit: Yes Status: Acute Code(s): K59.00 - CONSTIPATION, UNSPECIFIED SNOMED Code(s): 78922670 (2) Umbilical hernia Current Visit: Yes Status: Acute Code(s): K42.9 - UMBILICAL HERNIA WITHOUT OBSTRUCTION OR GANGRENE SNOMED Code(s): 118545712 (3) Hyponatremia Current Visit: Yes Status: Acute Code(s): E87.1 - HYPO-OSMOLALITY AND HYPONATREMIA SNOMED Code(s): 85851685
[2018-10-05] MEDS: DOCUSATE 100 MG CAP PO SCH (20:39)
[2018-10-05] MEDS: KETOTIFEN 0.025% OPHTH DROPS 5 ML BTL BOTH EYES SCH (20:39)
[2018-10-05] MEDS: METOPROLOL TARTRATE 25 MG TAB PO SCH (20:40)
--- NOTE | 2018-10-05 21:05 | CONS ---
CONSULTATION DATE OF SERVICE: 10/05/2018. PURPOSE FOR CONSULTATION: Evaluate for depression. INTERVAL HISTORY: The patient has been doing fair. He had a quiet evening last night. It is noted that at 1 point, nursing saw him wandering in the [place]ello when a talk to him about it, he said he was looking for his , though she had in June. He also make comments that he was seeing water coming near his door, though there was no water. He has been somewhat disorganized in his thoughts. His daughter, Blanca, who is his guardian has been talking with him about the need for addressing depression and his opioid withdrawal issues as more acute problems prior to him coming home. He is not comfortable with the idea of being admitted to a psychiatric unit. He did not say he would not go to unit. He has been eating better, though it is noted his weight was down from 61.7 kg on the to 57.3 kg yesterday. It is noted that staff have come by his room and will hear him talking to himself. He seems to be having extended conversations at times. I met with the patient's daughter to review treatment planning. He continued to note various problems he has had at home with managing self-care. She also notes that he has had significant mood swings as I indicated yesterday. Some of the time, these have reached the point recently where he was throwing some objects at her and yelling at her. When I saw him today, he was in bed with his head up. He had just started eating a meal. He did not give much eye contact. He answered a few questions. Generally his thoughts were clear. His affect was intense. He had an angry manner. His mood was depressed. He seemed moderately distressed. He did not show indications of responding to internal stimuli. On cognitive exam, he knew the month and year, though he hesitated about coming up with the day. He eventually said he thought "maybe it is Saturday." He did not make an effort to answer other formal cognitive questions. ASSESSMENT: I will continue the current diagnosis and treatment plan. I reviewed the patient's case with Dr. Jimenez. The plan at this point will be to admit to the psychiatric unit as of Saturday when a bed becomes available. I discussed this with the patient. He did not really respond in any particular way about the idea of a psychiatric admission. He continues to show depression with withdrawal issues from opioids and some thought disorder symptoms all of which would be indications for an admission. In addition, he has made statements about dying and anticipating dying soon, though he denies any specific feelings that he would do something to hurt himself or kill himself. I will continue to follow while he is on the medical floor. LEIA / CLARKE: [id number] /
[2018-10-06] MEDS: SODIUM CHLORIDE 0.9% 1,000 ML IV SCH (03:59)
[2018-10-06] MEDS: IPRATROPIUM 0.5 MG/2.5 ML NEBU INHALATION SCH ×4 (07:19→20:55)
[2018-10-06] MEDS: SYMBICORT 160-4.5 MCG INHALER INHALATION SCH ×2 (07:19→20:55)
[2018-10-06] MEDS: HEPARIN SODIUM,PORCINE 5,000 UNIT/ML 1 ML VIAL SQ SCH ×2 (08:26→20:20)
[2018-10-06] MEDS: FLUoxetine HCL 20 MG CAP PO SCH (08:26)
[2018-10-06] MEDS: METOPROLOL TARTRATE 25 MG TAB PO SCH ×2 (08:26→20:21)
[2018-10-06] MEDS: DOCUSATE 100 MG CAP PO SCH ×2 (08:26→20:21)
[2018-10-06] MEDS: ATORVASTATIN 10 MG TAB PO SCH (08:26)
[2018-10-06] MEDS: FAMOTIDINE 20 MG TAB PO SCH ×2 (08:26→20:20)
[2018-10-06] MEDS: NICOTINE 14MG/24HR PATCH TRANSDERM SCH (08:27)
[2018-10-06 08:54] LABS: African American GFR (CKD) >90 (>60 ml/min/1.73 sqM); Anion Gap 6 mmol/L; Blood Urea Nitrogen 9 mg/dL (9-20); Calcium 8.8 mg/dL (8.4-10.2); Carbon Dioxide 30 mmol/L (22-30); Chloride 101 mmol/L (98-107); Glucose 87 mg/dL (74-99); Non-African American GFR(CKD) >90 (>60 ml/min/1.73 sqM); Potassium 4.2 mmol/L (3.5-5.1); Sodium 137 mmol/L (137-145)
[2018-10-06] MEDS: NAPROXEN 250 MG TAB PO SCH ×2 (09:45→20:21)
[2018-10-06] MEDS: OLANZapine 2.5 MG TAB PO SCH ×3 (09:45→20:21)
--- NOTE | 2018-10-06 13:05 | CONS ---
CONSULTATION PSYCHIATRIC CONSULTATION: DATE OF SERVICE: 10/06/2018 PURPOSE FOR CONSULTATION: Evaluate for depression. INTERVAL HISTORY: The patient has been doing fair. He is very focused on the idea being discharged to home. He says that he is willing to seek some mental health help, though he believes that he could do it on an outpatient basis. When I reviewed his case with nurse, she indicated that he had a quiet evening yesterday and has continued to be fairly quiet and calm today. No hallucinations were noted. The patient himself stated that he did believe he was having hallucinations in previous days as documented before. He continues to be moderately depressed. He has not been sleeping at night. He states that he has some insight in regards to needed to be off of opioid pain medication. He noted that over some extended period of time he had tapered himself down from tramadol from 6 tablets a day down to 2 tablets a day. He notes that he has not been taking tramadol at least in the last few days during his hospitalization. He acknowledges that he did receive a methadone tablet from his daughter what he described was that he was lying down and was half asleep and she put a tablet in his mouth and said that it would help him sleep. He acknowledges that there are significant family stress issues including with 2 of his children with whom he has been living. Noted that his oldest daughter who is his guardian was making efforts towards eviction of those 2 children due to disruptive and dangerous behavior that they have had in regards to his care. The patient himself says that he would choose to give the children another chance before having them leave the home. When I saw him today, he talked quite a bit. He did not give much eye contact, mostly he focused on negative things about his current life situation. He also focused on feeling he needed to go home to take care of personal business. His mood was down. He seemed moderately distressed. Nursing notes that he has not had any hallucinations or delusional thoughts yesterday afternoon, evening or this morning. ASSESSMENT: It is noted that the patient did not seem to have much insight in regards to medical care issues and what services or support he may need at home upon discharge. There have been some significant neglect issues and he has shown failure to thrive at home. He continues to be moderately depressed. I recommend that he meet with Social Work to determine what home services may be needed. I would recommend Social Work coordinate this with his daughter, Blanca, who is his guardian as part of discharge planning. There is the option for his being admitted to the psychiatric unit. He has moderate indications for an admission, though it is not clear he meets criteria for involuntary hospitalization. I am off the service as of today so if there is need for further psychiatric intervention, please reconsult Psychiatry. MMODL / IJN: [id number] /
[2018-10-06] MEDS: KETOTIFEN 0.025% OPHTH DROPS 5 ML BTL BOTH EYES SCH (20:21)
[2018-10-07] MEDS: SODIUM CHLORIDE 0.9% 1,000 ML IV SCH (03:11)
[2018-10-07] MEDS: IPRATROPIUM 0.5 MG/2.5 ML NEBU INHALATION SCH ×4 (07:36→20:12)
[2018-10-07] MEDS: SYMBICORT 160-4.5 MCG INHALER INHALATION SCH ×2 (07:36→20:11)
[2018-10-07] MEDS: DOCUSATE 100 MG CAP PO SCH ×2 (07:42→20:45)
[2018-10-07] MEDS: METOPROLOL TARTRATE 25 MG TAB PO SCH ×2 (07:42→20:45)
[2018-10-07] MEDS: FAMOTIDINE 20 MG TAB PO SCH ×2 (07:42→20:45)
[2018-10-07] MEDS: FLUoxetine HCL 20 MG CAP PO SCH (07:42)
[2018-10-07] MEDS: ATORVASTATIN 10 MG TAB PO SCH (07:42)
[2018-10-07] MEDS: NAPROXEN 250 MG TAB PO SCH ×2 (07:43→20:45)
[2018-10-07] MEDS: HEPARIN SODIUM,PORCINE 5,000 UNIT/ML 1 ML VIAL SQ SCH ×2 (07:43→20:45)
[2018-10-07] MEDS: NICOTINE 14MG/24HR PATCH TRANSDERM SCH (07:43)
[2018-10-07] MEDS: OLANZapine 2.5 MG TAB PO SCH ×3 (07:43→20:46)
--- NOTE | 2018-10-07 16:20 | P.PN ---
Progress Note - Text Progress Note Date: 10/07/18 Psychiatric progress note: Patient was seen at the bedside today and was calm and cooperative and agreeable to speak with advertising copywriter. Patient states that he is going through some stressors at home claiming that his and 06/2018 and has been dealing with rn enterostomal and different problems with the will. Patient claims that he lives with his grandson and his daughters come by to help him from time to time. Patient claims that he is taking care of at home and expresses desire to return home today. Patient claims that he has been on Prozac for depression which is helped him and states that since his breathing is improved from the pneumonia that his mood is also improved. He states that he is sleeping better and his energy has improved. At this time patient denies any suicidal or homical ideations, intent or plan. Patient denies any auditory, visual hallucinations and denies any para noia or delusions. Mental Status Exam: General Appearance: Patient appears to be stated age, is alert cooperative and has fair hygiene and grooming. Behavior: [Patient is calmly seated without any agitated behavior.] Speech: Patient's speech is fluent and nonpressured. Mood/Affect: Mood is improving, affect is congruent and euthymic Suicidality/Homicidality: Patient denies having any suicidal or homicidal ideation intent or plan. Perceptions: Patient denies any auditory or visual hallucinations. Though content/process: [There is no evidence of any delusional thought content and thought process is linear and goal-directed.] Memory and concentration: AOX3, grossly intact for the purposes of this session Judgment and insight: fair Assessment Depressive disorder unspecified Plan: -Patient does not meet criteria for inpatient psychiatric hospitalization at this time. Patient is currently not a risk of self-harm or harm to others. -Medications: Patient can continue with his home medications including Zyprexa and Prozac at the same dose. -Please insure prior to discharge the patient has a good disposition including good follow-up care, home health services and either the grandson or her daughters are on board to help assist in care of the patient. -At this time patient is psychiatrically cleared for discharge when medically appropriate.
--- NOTE | 2018-10-07 17:38 | PN ---
PROGRESS NOTE DATE OF SERVICE: 10/06/2018. CHIEF COMPLAINT: Abdominal pain, COPD, depression. HISTORY OF PRESENT ILLNESS: This gentleman continues to be very depressed. His abdominal pain is not a problem. Currently the plan is that he might go to Inpatient Psychiatry for his depression, but this has not been definitely called for by Psychiatry. The patient still remains very depressed, but he is not having any abdominal pain. He does not want to go to the psych unit and would like to go home. PHYSICAL EXAMINATION: His chest is clear, but breath sounds are diminished throughout. Cardiac exam is normal. Abdomen is soft and nontender. Extremities are normal. IMPRESSION: 1. Abdominal pain. 2. Constipation. 3. Major depression. 4. Chronic obstructive pulmonary disease. 5. Amyloidosis. 6. Analgesic abuse. PLAN: We are waiting to see if he will go to the psych unit or not. LEIA / CLARKE: [id number] /
--- NOTE | 2018-10-07 17:47 | PN ---
PROGRESS NOTE CHIEF COMPLAINT: Abdominal pain, obstipation and depression. HISTORY OF PRESENT ILLNESS: This gentleman seems to be fairly stable. He is a little bit more lethargic than usual. PHYSICAL EXAMINATION: Breath sounds are diminished throughout. Cardiac exam is normal. He is afebrile. Abdomen is soft, nontender. IMPRESSION: 1. Abdominal pain. 2. Obstipation. 3. Chronic obstructive pulmonary disease. 4. Depression. PLAN: Discharge plan is up in the air. Psychiatry thought that he might be able to benefit from being on the psych unit, and it sounds like this was going to be arranged. However, the latest note from the psychiatrist indicated that this may not be necessary. The patient does not want to go to the inpatient psych service. This will be turned back to Discharge Planning, and decision will have to be made as to where he goes once he is discharged from the floor. LEIA / CLARKE: [id number] /
[2018-10-07] MEDS: KETOTIFEN 0.025% OPHTH DROPS 5 ML BTL BOTH EYES SCH (20:45)
[2018-10-08] MEDS: SODIUM CHLORIDE 0.9% 1,000 ML IV SCH (03:50)
[2018-10-08 07:30] VITALS: BP 118/64; RESP 16; TEMP 98.5
[2018-10-08] MEDS: SYMBICORT 160-4.5 MCG INHALER INHALATION SCH (08:11)
[2018-10-08] MEDS: IPRATROPIUM 0.5 MG/2.5 ML NEBU INHALATION SCH ×2 (08:11→11:26)
[2018-10-08 08:16] VITALS: PULSE 76
[2018-10-08] MEDS: HEPARIN SODIUM,PORCINE 5,000 UNIT/ML 1 ML VIAL SQ SCH (08:39)
[2018-10-08] MEDS: FLUoxetine HCL 20 MG CAP PO SCH (08:39)
[2018-10-08] MEDS: NICOTINE 14MG/24HR PATCH TRANSDERM SCH (08:39)
[2018-10-08] MEDS: DOCUSATE 100 MG CAP PO SCH (08:39)
[2018-10-08] MEDS: OLANZapine 2.5 MG TAB PO SCH (08:39)
[2018-10-08] MEDS: METOPROLOL TARTRATE 25 MG TAB PO SCH (08:39)
[2018-10-08] MEDS: NAPROXEN 250 MG TAB PO SCH (08:40)
[2018-10-08] MEDS: FAMOTIDINE 20 MG TAB PO SCH (08:40)
[2018-10-08] MEDS: ATORVASTATIN 10 MG TAB PO SCH (08:40)
--- NOTE | 2018-10-08 20:09 | DS ---
DISCHARGE SUMMARY CHIEF COMPLAINT: Abdominal pain. HISTORY OF PRESENT ILLNESS AND PHYSICAL EXAMINATION: Details of this man's history and physical can be found in the initial workup. LABORATORY STUDIES: While he was in the hospital he had laboratory studies, details of which can be found in the laboratory section of his chart. COURSE IN THE HOSPITAL: After admission he was placed on bedrest and evaluated for acute abdominal pain. It turns out he was constipated. He was also identified as being extremely depressed and he was seen by Psychiatry. It was initially recommended that he be admitted to the psych unit, but he did not want to be. The latest input from the psychiatrist was that his going there was optional. He was doing well and was anxious to be discharged. He will be sent home on October 08 and will follow up with us in one day as well as being followed by [facility]. FINAL DIAGNOSES: 1. Abdominal pain due to constipation. 2. Chronic obstructive pulmonary disease. 3. Right-sided bronchial pneumonia. 4. Major depression. 5. Amyloidosis. OPERATIONS: None. CONSULTATIONS: 1. Surgery. 2. Psychiatry. MMODL / IJN: [id number] /
== END 2018-10-08 13:54 | disposition home health service (06) | DRG 392 ==
LOC: EC 21:25 → 4SSUR 10-02 02:47 → OBSVTOIN 10-03 07:48
PROVIDERS: ADMIT Family Medicine; ATTEND Family Medicine
DX: K59.00 Constipation, unspecified (principal); Z68.1 Body mass index [BMI] 19.9 or less, adult; E85.9 Amyloidosis, unspecified; E87.1 Hypo-osmolality and hyponatremia; F11.23 Opioid dependence with withdrawal; K42.9 Umbilical hernia without obstruction or gangrene; Z87.01 Personal history of pneumonia (recurrent); Z86.14 Personal history of Methicillin resistant Staphylococcus aureus infection; Z63.4 Disappearance and death of family member; R63.4 Abnormal weight loss; J44.9 Chronic obstructive pulmonary disease, unspecified; R91.1 Solitary pulmonary nodule; B18.2 Chronic viral hepatitis C; E78.5 Hyperlipidemia, unspecified; E86.0 Dehydration; E86.1 Hypovolemia; F32.9 Major depressive disorder, single episode, unspecified; F41.0 Panic disorder [episodic paroxysmal anxiety]; F41.1 Generalized anxiety disorder; G89.29 Other chronic pain; I10 Essential (primary) hypertension; L40.9 Psoriasis, unspecified; R62.7 Adult failure to thrive; Z79.899 Other long term (current) drug therapy; Z82.49 Family history of ischemic heart disease and other diseases of the circulatory system; F17.210 Nicotine dependence, cigarettes, uncomplicated; Z98.1 Arthrodesis status; I71.2 Thoracic aortic aneurysm, without rupture; M54.9 Dorsalgia, unspecified; R44.1 Visual hallucinations
CPT/HCPCS: 36415; 71045; 74176; 80048; 80053; 80306; 81003; 82150; 83605; 83690; 85025; 94640; 94760; 96361; 96374; 96375; 96376; 99285

== ENCOUNTER 2019-05-23 11:24 | Inpatient (IN) | payer MEDICARE ==
[2019-05-23] MEDS ORDERED: ACETAMINOPHEN TAB 500 MG TAB PO STA (11:49)
[2019-05-23] MEDS ORDERED: ALBUTEROL HFA INHALER INHALATION STA (11:49)
--- NOTE | 2019-05-23 11:57 | ED ---
General Adult HPI - General Chief complaint: Shortness of Breath Stated complaint: SOB Source: EMS, RN notes reviewed, old records reviewed Mode of arrival: EMS Limitations: no limitations - History of Present Illness Initial comments: This is a 74-year-old male who presents emergency Department with past medical history of COPD. Patient states last night he started coughing and having a fever. Patient states he has had direct contact with 3 people who were in [place] 2 weeks ago none of those people were diagnosed with COVID and none of those people have any symptoms. Patient denies any chest pain or palpitations. Patient does complain of feeling weak. Patient denies any abdominal pain. Patient denies nausea vomiting or diarrhea. Patient denies any conjunctivitis. Patient denies any swelling to the legs or calf tenderness. - Related Data Home Medications Medication Instructions Recorded Confirmed Albuterol Inhaler (Bulk) [Ventolin 1 puff INHALATION RT-BID 08/17/18 05/23/19 Hfa Inhaler (Bulk)] Albuterol Nebulized [Ventolin 2.5 mg INHALATION RT-QID PRN 08/17/18 05/23/19 Nebulized] Ergocalciferol [Vitamin D2 50,000 unit PO Q30D 08/17/18 05/23/19 (DRISDOL)] Simvastatin [Zocor] 20 mg PO HS 08/17/18 05/23/19 Tiotropium [place] [Spiriva] 1 cap INHALATION RT-DAILY 08/17/18 05/23/19 traMADol HCL [Ultram] 50 mg PO BID 08/17/18 05/23/19 Fluticasone Propion/Salmeterol 1 puff PO RT-BID 05/23/19 05/23/19 [Wixela 500-50 Inhub] Metoprolol Tartrate [Lopressor] 12.5 mg PO BID 05/23/19 05/23/19 Naproxen 500 mg PO BID PRN 05/23/19 05/23/19 Previous Rx's Medication Instructions Recorded FLUoxetine HCL [PROzac] 20 mg PO DAILY #30 cap 10/04/18 OLANZapine [ZyPREXA] 2.5 mg PO TID #90 tab 10/04/18 Docusate [Colace] 100 mg PO BID #60 cap 10/08/18 Famotidine [Pepcid] 20 mg PO BID #60 tab 10/08/18 Allergies Allergy/AdvReac Type Severity Reaction Status Date / Time No Known Allergies Allergy Verified 05/23/19 12:51 Review of Systems ROS Statement: Those systems with pertinent positive or pertinent negative responses have been documented in the HPI. ROS Other: All systems not noted in ROS Statement are negative. Past Medical History Past Medical History: COPD, Hyperlipidemia Additional Past Medical History / Comment(s): pneumonia History of Any Multi-Drug Resistant Organisms: MRSA Date of last positivie culture/infection: 08/27/18 MDRO Source:: BRONCH WASH Additional Past Surgical History / Comment(s): back fusion. hip surgery x 2 Past Anesthesia/Blood Transfusion Reactions: No Reported Reaction Past Psychological History: No Psychological Hx Reported Smoking Status: Former smoker Past Alcohol Use History: None Reported Past Drug Use History: None Reported - Past Family History Father Family Medical History: Myocardial Infarction ([place]) Mother Family Medical History: Myocardial Infarction ([place]) General Exam - General Exam Comments Initial Comments: GENERAL: Patient is well-developed and well-nourished. Patient is nontoxic and well- hydrated and is in mild distress. Patient's pulse ox was in the 80s on room air on 3 L she was at 98% ENT: Neck is soft and supple. No significant lymphadenopathy is noted. Oropharynx is clear. Moist mucous membranes. Neck has full range of motion without eliciting any pain. EYES: The sclera were anicteric and conjunctiva were pink and moist. Extraocular movements were intact and pupils were equal round and reactive to light. Eyelids were unremarkable. PULMONARY: Patient has diminished breath sounds throughout. Patient has some expiratory wheezing CARDIOVASCULAR: There is a regular rate and rhythm without any murmurs gallops or rubs. ABDOMEN: Soft and nontender with normal bowel sounds. SKIN: Skin is clear with no lesions or rashes and otherwise unremarkable. NEUROLOGIC: Patient is alert and oriented x3. Cranial nerves II through XII are grossly intact. Motor and sensory are also intact. Normal speech, volume and content. Symmetrical smile. MUSCULOSKELETAL: Normal extremities with adequate strength and full range of motion. LYMPHATICS: No significant lymphadenopathy is noted PSYCHIATRIC: Normal psychiatric evaluation. Limitations: no limitations Course Vital Signs 05/23/19 05/23/19 05/23/19 11:34 12:37 13:23 Temperature 101.2 F H 100.0 F H Pulse Rate 110 H 103 H Respiratory 22 20 16 Rate Blood Pressure 108/72 106/68 O2 Sat by Pulse 93 L 96 Oximetry 05/23/19 14:07 Temperature Pulse Rate 96 Respiratory 16 Rate Blood Pressure 100/62 O2 Sat by Pulse 94 L Oximetry Medical Decision Making - Medical Decision Making EKG shows sinus tachycardia at 106 bpm AL interval is 142 QRS is 118 QT interval 342 QTC is 454. Patient's EKG shows no ST segment elevation or depression. X-ray shows pneumonia. I started the patient on Rocephin and doxycycline. I spoke with Dr. Mendoza and he agreed to admit the patient admitted the patient I wrote admitting orders. I continued the Rocephin and doxycycline the floor. - Lab Data Result diagrams: 05/23/19 11:33 05/23/19 11:33 Lab Results 05/23/19 05/23/19 05/23/19 Range/Units 11:33 11:33 11:37 WBC 13.3 H (3.8-10.6) k/uL RBC 4.55 (4.30-5.90) m/uL Hgb 13.8 (13.0-17.5) gm/dL Hct 42.0 (39.0-53.0) % MCV 92.2 (80.0-100.0) fL MCH 30.2 (25.0-35.0) pg MCHC 32.8 (31.0-37.0) g/dL RDW 13.4 (11.5-15.5) % Plt Count 158 (150-450) k/uL Neutrophils % 89 % Lymphocytes % 5 % Monocytes % 5 % Eosinophils % 1 % Basophils % 0 % Neutrophils # 11.8 H (1.3-7.7) k/uL Lymphocytes # 0.7 L (1.0-4.8) k/uL Monocytes # 0.7 (0-1.0) k/uL Eosinophils # 0.1 (0-0.7) k/uL Basophils # 0.0 (0-0.2) k/uL D-Dimer 1.08 H (<0.60) mg/L FEU Sodium 136 L (137-145) mmol/L Potassium 4.2 (3.5-5.1) mmol/L Chloride 97 L (98-107) mmol/L Carbon Dioxide 32 H (22-30) mmol/L Anion Gap 7 mmol/L BUN 20 (9-20) mg/dL Creatinine 0.88 (0.66-1.25) mg/dL Est GFR (CKD-EPI)AfAm >90 (>60 ml/min/1.73 sqM) Est GFR (CKD-EPI)NonAf 86 (>60 ml/min/1.73 sqM) Glucose 93 (74-99) mg/dL Plasma Lactic Acid Gabe (0.7-2.0) mmol/L Calcium 9.2 (8.4-10.2) mg/dL Magnesium (1.6-2.3) mg/dL Total Bilirubin 0.7 (0.2-1.3) mg/dL AST 27 (17-59) U/L ALT 18 (4-49) U/L Alkaline Phosphatase 54 (38-126) U/L C-Reactive Protein (<10.0) mg/L Total Protein 6.8 (6.3-8.2) g/dL Albumin 4.3 (3.5-5.0) g/dL Influenza Type A RNA (Not Detectd) Influenza Type B (PCR) (Not Detectd) 05/23/19 05/23/19 05/23/19 Range/Units 11:37 11:37 12:00 WBC (3.8-10.6) k/uL RBC (4.30-5.90) m/uL Hgb (13.0-17.5) gm/dL Hct (39.0-53.0) % MCV (80.0-100.0) fL MCH (25.0-35.0) pg MCHC (31.0-37.0) g/dL RDW (11.5-15.5) % Plt Count (150-450) k/uL Neutrophils % % Lymphocytes % % Monocytes % % Eosinophils % % Basophils % % Neutrophils # (1.3-7.7) k/uL Lymphocytes # (1.0-4.8) k/uL Monocytes # (0-1.0) k/uL Eosinophils # (0-0.7) k/uL Basophils # (0-0.2) k/uL D-Dimer (<0.60) mg/L FEU Sodium (137-145) mmol/L Potassium (3.5-5.1) mmol/L Chloride (98-107) mmol/L Carbon Dioxide (22-30) mmol/L Anion Gap mmol/L BUN (9-20) mg/dL Creatinine (0.66-1.25) mg/dL Est GFR (CKD-EPI)AfAm (>60 ml/min/1.73 sqM) Est GFR (CKD-EPI)NonAf (>60 ml/min/1.73 sqM) Glucose (74-99) mg/dL Plasma Lactic Acid Gabe 1.8 (0.7-2.0) mmol/L Calcium (8.4-10.2) mg/dL Magnesium 1.8 (1.6-2.3) mg/dL Total Bilirubin (0.2-1.3) mg/dL AST (17-59) U/L ALT (4-49) U/L Alkaline Phosphatase (38-126) U/L C-Reactive Protein 8.7 (<10.0) mg/L Total Protein (6.3-8.2) g/dL Albumin (3.5-5.0) g/dL Influenza Type A RNA Not Detected (Not Detectd) Influenza Type B (PCR) Not Detected (Not Detectd) Disposition Clinical Impression: Pneumonia Disposition: ADMITTED IP TO THIS HOSP Referrals: Gerber Grissom MD [Primary Care Provider] - 1-2 days Time of Disposition: 14:35
[2019-05-23] MEDS ORDERED: DOXYCYCLINE 100 MG in SODIUM CHLORIDE 0.9% 100 ML IVPB ONE (12:00)
--- NOTE | 2019-05-23 12:21 | XR ---
EXAMINATION TYPE: XR chest 1V portable DATE OF EXAM: 05/23/2019 HISTORY: Short of breath . REFERENCE: Previous study dated 10/05/2018. FINDINGS: The lungs are overinflated. Heart size is within normal limits. There is increased opacity in the right lower lobe likely representing developing pneumonia. The left lung appears clear. Pleura l spaces are clear. IMPRESSION: 1. COPD. 2. DEVELOPING RIGHT LOWER LOBE PNEUMONIA.
[2019-05-23 12:33] LABS: C Reactive Protein 8.7 mg/L (<10.0); Magnesium 1.8 mg/dL (1.6-2.3)
[2019-05-23 14:01] LABS: Basophils % (A) 0 %; Eosinophils # (A) 0.1 k/uL (0-0.7); Eosinophils % (A) 1 %; HGB 13.8 gm/dL (13.0-17.5); Lymphocytes # (A) 0.7 k/uL (1.0-4.8); Lymphocytes % (A) 5 %; MCH 30.2 pg (25.0-35.0); MCHC 32.8 g/dL (31.0-37.0); MCV 92.2 fL (80.0-100.0); Mean Platelet Volume 8.1; Monocytes # (A) 0.7 k/uL (0-1.0); Monocytes % (A) 5 %; Neutrophils # (A) 11.8 k/uL (1.3-7.7); Neutrophils % (A) 89 %; Platelet Count 158 k/uL (150-450); RBC 4.55 m/uL (4.30-5.90); RDW 13.4 % (11.5-15.5); WBC 13.3 k/uL (3.8-10.6)
[2019-05-23 14:06] LABS: ALT 18 U/L (4-49); AST 27 U/L (17-59); African American GFR (CKD) >90 (>60 ml/min/1.73 sqM); Albumin 4.3 g/dL (3.5-5.0); Alkaline Phosphatase 54 U/L (38-126); Anion Gap 7 mmol/L; Blood Urea Nitrogen 20 mg/dL (9-20); Calcium 9.2 mg/dL (8.4-10.2); Carbon Dioxide 32 mmol/L (22-30); Chloride 97 mmol/L (98-107); Glucose 93 mg/dL (74-99); Non-African American GFR(CKD) 86 (>60 ml/min/1.73 sqM); Potassium 4.2 mmol/L (3.5-5.1); Sodium 136 mmol/L (137-145); Total Bilirubin 0.7 mg/dL (0.2-1.3); Total Protein 6.8 g/dL (6.3-8.2)
[2019-05-23] MEDS ORDERED: PNEUMONIA PROTOCOL UTILIZED 1 EACH MISC PO PRN (14:35)
[2019-05-23] MEDS ORDERED: ALBUTEROL NEBULIZED 2.5 MG/3 ML INHALATION PRN (15:56)
[2019-05-23] MEDS: ALBUTEROL HFA INHALER INHALATION PRN (16:04)
[2019-05-23] MEDS ORDERED: ACETAMINOPHEN TAB 325 MG TAB PO PRN (16:05)
[2019-05-23] MEDS ORDERED: TIOTROPIUM 18 MCG/PUFF INHALER INHALATION PRN (16:15)
[2019-05-23] MEDS: NICOTINE 21MG/24HR PATCH TRANSDERM SCH (17:24)
[2019-05-23] MEDS: OLANZapine 2.5 MG TAB PO SCH ×2 (17:24→21:59)
[2019-05-23] MEDS: DEXTROSE 5%-0.9% NACL 1,000 ML IV SCH (17:26)
[2019-05-23] MEDS: ALBUTEROL HFA INHALER INHALATION SCH (20:06)
[2019-05-23] MEDS: DOCUSATE 100 MG CAP PO SCH (21:58)
[2019-05-23] MEDS: METOPROLOL TARTRATE 12.5 MG TAB PO SCH (21:58)
[2019-05-23] MEDS: ATORVASTATIN 10 MG TAB PO SCH (21:59)
[2019-05-23] MEDS: FAMOTIDINE 20 MG TAB PO SCH (21:59)
[2019-05-23] MEDS: NAPROXEN 250 MG TAB PO PRN (22:21)
[2019-05-23 23:13] LABS: Ferritin 25.7 ng/mL (22.0-322.0)
[2019-05-24] MEDS ORDERED: DOXYCYCLINE 100 MG in SODIUM CHLORIDE 0.9% 100 ML IVPB SCH ×2
[2019-05-24] MEDS: traMADol 50 MG TAB PO PRN ×2 (03:37→10:18)
[2019-05-24] MEDS: DEXTROSE 5%-0.9% NACL 1,000 ML IV SCH ×2 (03:41→17:27)
--- NOTE | 2019-05-24 07:05 | XR ---
EXAMINATION TYPE: XR chest 1V DATE OF EXAM: 05/24/2019 HISTORY: pending covid. REFERENCE: Previous study dated 05/23/2019. FINDINGS: Lungs are overinflated. The heart is not enlarged. There are now patchy infiltrates present bilaterally. This represents a worsening in the appearance. No definite pleural fluid is seen. IMPRESSION: WORSENING BILATERAL PNEUMONIAS.
[2019-05-24] MEDS: ALBUTEROL HFA INHALER INHALATION SCH (07:46)
[2019-05-24] MEDS: AZITHROMYCIN 500 MG in SODIUM CHLORIDE 0.9% 250 ML IVPB SCH (08:07)
[2019-05-24] MEDS: OLANZapine 2.5 MG TAB PO SCH ×3 (08:09→20:44)
[2019-05-24] MEDS: DOCUSATE 100 MG CAP PO SCH ×2 (08:09→20:42)
[2019-05-24] MEDS: METOPROLOL TARTRATE 12.5 MG TAB PO SCH ×2 (08:09→20:42)
[2019-05-24] MEDS: NICOTINE 21MG/24HR PATCH TRANSDERM SCH (08:09)
[2019-05-24] MEDS: FAMOTIDINE 20 MG TAB PO SCH ×2 (08:09→20:44)
[2019-05-24] MEDS: FLUoxetine HCL 20 MG CAP PO SCH (08:09)
[2019-05-24] MEDS: ALBUTEROL HFA INHALER INHALATION PRN ×2 (11:36→17:05)
--- NOTE | 2019-05-24 11:56 | P.CNPUL ---
History of Present Illness Consult date: 05/23/19 Reason for consult: dyspnea History of present illness: 74-year-old white male patient with history of advanced COPD, with baseline FEV1 of 31% of predicted, a chronic history of smoking, history of multiple comorbidities including chronic hepatitis C, essential hypertension, history of solitary lung nodule, and thoracic aortic aneurysm. Patient carries [id number]-yblu smoking history, was down to half a pack a day. In August 2018 the patient was hospitalized for an extensive right lung pneumonia and a CAT scan of the chest showed early cavitation with significant consolidation of the right lower lobe. At that time, the patient had a bronchoscopy and the lavage showed MRSA. He was treated accordingly and he was discharged home. Following that, he was readmitted to the hospital for abdominal pain and a CAT scan of the abdomen was done showed complete clearing of the previously noted right lower lobe pneumonia. He did have some constipation. Since his discharge from the hospital, the patient is not smoking still wearing the patch. He is currently on a combination of Advair and Spiriva. Is on oxygen at 3 L per minute nasal cannula. He is using albuterol solution up to 4 times a day. On 05/23/2019, the patient came into the ED complaining of cough and a fever. The patient had direct contact with the people diagnosed having COVID 19 infection and this occurred during his stay in [place] where he was therefore total of 2 weeks. He is feeling weak. Denies any chest pain or palpitation related pleurisy. No nausea. No vomiting. No diarrhea. No altered mentation. No conjunctivitis. No swelling in lower extremities. The Covid 19 analysis still pending for now. His lymphocyte count is down to 0.7. His d-dimer is at 1.08. Liver function tests are within normal limits. His influenza screen was negative. The CRP level is at 0.29. CRP is at 8.7. The chest x-ray showing some increased interstitial markings in the right lung base suspicious for a developing pneumonia. He has underlying COPD with extensive emphysematous changes upper lobes bilaterally. Review of Systems Constitutional Constitutional: no fever, no night sweats, no significant weight gain, no significant weight loss, exercise intolerance Eyes Eyes: no dry eyes, no vision change, no irritation ENMT Ears: no difficulty hearing, no ear pain Nose: no frequent nosebleeds, no nose problems, no sinus problems Mouth/Throat: no sore throat, no bleeding gums, no snoring, no dry mouth, no mouth ulcers, no oral abnormalities, no teeth problems Cardiovascular Cardiovascular: no chest pain, no arm pain on exertion, no shortness of breath when lying down, no palpitations, no known heart murmur, shortness of breath wh en walking Respiratory Respiratory: cough, wheezing, no coughing up blood, no sleep apnea, shortness of breath Gastrointestinal Gastrointestinal: no abdominal pain, no nausea, no vomiting, no constipation, normal appetite, no diarrhea, not vomiting blood, no dyspepsia, no GERD Genitourinary Genitourinary: no incontinence, no difficulty urinating, no hematuria, no increased frequency Musculoskeletal Musculoskeletal: no muscle aches, no muscle weakness, no arthralgias/joint pain, no back pain, no swelling in the extremities Integumentary Skin: no abnormal mole, no jaundice, no rashes, no laceration Neurologic Neurologic: no loss of consciousness, no numbness, no seizures, no dizziness, no migraines, no headaches, no tremor, weakness Psychiatric Psych: no depression, no sleep disturbances, feeling safe in a relationship, no alcohol abuse, no anxiety, no hallucinations, no suicidal thoughts Endocrine Endocrine: no fatigue Hematologic/Lymphatic Hematologic/Lymphatic no swollen glands, no bruising, no excessive bleeding Allergic/Immunologic Allergy/Immunologic: no runny nose, no sinus pressure, no itching, no hives, no frequent sneezing Past Medical History Past Medical History: COPD, Hyperlipidemia Additional Past Medical History / Comment(s): Severe COPD, chronic hypoxic respiratory failure, previous history of pneumonia related to MRSA, history of solitary pulmonary nodule and a CAT scan of the chest that was done Gen. 2019 showed a 9 mm left upper lobe nodule without any significant change compared to the earlier CAT scan from 2018, history of thoracic aortic aneurysm measuring 4.2 cm, history of chronic hepatitis C viral infection History of Any Multi-Drug Resistant Organisms: MRSA Date of last positivie culture/infection: 08/27/18 MDRO Source:: BRONCH WASH Additional Past Surgical History / Comment(s): back fusion. hip surgery x 2 Past Anesthesia/Blood Transfusion Reactions: No Reported Reaction Past Psychological History: No Psychological Hx Reported Smoking Status: Former smoker - Past Family History Father Family Medical History: Myocardial Infarction ([place]) Mother Family Medical History: Myocardial Infarction ([place]) Medications and Allergies Home Medications Medication Instructions Recorded Confirmed Type Albuterol Inhaler (Bulk) [Ventolin 1 puff INHALATION RT-BID 08/17/18 05/23/19 History Hfa Inhaler (Bulk)] Albuterol Nebulized [Ventolin 2.5 mg INHALATION RT-QID PRN 08/17/18 05/23/19 History Nebulized] Ergocalciferol [Vitamin D2 50,000 unit PO Q30D 08/17/18 05/23/19 History (DRISDOL)] Simvastatin [Zocor] 20 mg PO HS 08/17/18 05/23/19 History Tiotropium [place] [Spiriva] 1 cap INHALATION RT-DAILY 08/17/18 05/23/19 History traMADol HCL [Ultram] 50 mg PO BID 08/17/18 05/23/19 History FLUoxetine HCL [PROzac] 20 mg PO DAILY #30 cap 10/04/18 05/23/19 Rx OLANZapine [ZyPREXA] 2.5 mg PO TID #90 tab 10/04/18 05/23/19 Rx Docusate [Colace] 100 mg PO BID #60 cap 10/08/18 05/23/19 Rx Famotidine [Pepcid] 20 mg PO BID #60 tab 10/08/18 05/23/19 Rx Fluticasone Propion/Salmeterol 1 puff PO RT-BID 05/23/19 05/23/19 History [Wixela 500-50 Inhub] Metoprolol Tartrate [Lopressor] 12.5 mg PO BID 05/23/19 05/23/19 History Naproxen 500 mg PO BID PRN 05/23/19 05/23/19 History Allergies Allergy/AdvReac Type Severity Reaction Status Date / Time No Known Allergies Allergy Verified 05/23/19 12:51 Physical Exam Vitals: Vital Signs Temp Pulse Pulse Resp BP BP Pulse Ox 05/23/19 20:14 67 95 05/23/19 15:30 99.5 F 95 18 108/66 96 05/23/19 14:07 96 16 100/62 94 L 05/23/19 13:23 100.0 F H 103 H 16 106/68 96 05/23/19 12:37 20 05/23/19 11:34 101.2 F H 110 H 22 108/72 93 L Intake and Output 05/23/19 05/23/19 05/23/19 06:59 14:59 22:59 Intake Total 296 Balance 296 Intake: Oral 296 Other: Voiding Method Toilet Weight 63.503 kg 63.503 kg General Appearance no diaphoresis, no respiratory distress, speech not interrupted by breaths, no dyspnea, no pallor, not cachectic, well nourished, appears well HEENT no pursed lip breathing, no jugular venous distention, no mucous membrane cyanosis, no perioral cyanosis, mallampati classification: class 1 Chest no retractions, no sternocleidomastoid muscle contractions, no supracl avicular retractions, no intercostal retractions, no decreased air movement, no rhonchi, no hyperinflation, barrel chest, prolonged expiratory wheezing, decreased air movement Heart no right ventricular heave, no distant heart sounds, no s3 gallop GI bowel sounds: hyperactive (borborygmi), bowel sounds: diminished or absent Extremities no cyanosis, no clubbing, no edema Neurologic no decreased mental status, no somnolence, no confusion Skin General Appearance normal, (normal) normal except as noted Results - Laboratory Findings CBC and BMP: 05/23/19 11:33 05/23/19 11:33 PT/INR, D-dimer D-Dimer 1.08 mg/L FEU (<0.60) H 05/23/19 11:37 Abnormal lab findings: Abnormal Labs 05/23/19 05/23/19 05/23/19 11:33 11:33 11:37 WBC 13.3 H Neutrophils # 11.8 H Lymphocytes # 0.7 L D-Dimer 1.08 H Sodium 136 L Chloride 97 L Carbon Dioxide 32 H Procalcitonin 05/23/19 11:37 WBC Neutrophils # Lymphocytes # D-Dimer Sodium Chloride Carbon Dioxide Procalcitonin 0.29 H - Diagnostic Findings Chest x-ray: image reviewed Assessment and Plan Plan: 1 acute febrile illness and this is a PUI or Covid 19 infection. This is of a high suspicion as the patient came in close contact with people with confirmed Covid 19 infection. In addition he has fever or cough shortness of breath and lymphopenia in addition to some vague infiltration of the lower lobes bilaterally. 2 chronic hypoxic respiratory failure still On oxygen at 3 L per minute nasal cannula 3 advanced COPD with FEV1 of 31% of predicted 4 previous history of MRSA pneumonia 5 previous history of solitary pulmonary nodule in the left upper lobe measuring 9 mm in size being followed up on outpatient basis 6 history of thoracic aortic aneurysm measuring 4.2 cm 7 history of hepatitis C viral infection 8 hyperlipidemia Plan Proceed with covert 19 testing Rocephin and Zithromax for empiric antibiotic coverage for any suspected bacterial pneumonia Avoid utilization of nebulized treatments Continue Spiriva Continue albuterol HFA Oxygen at 3 L per minute nasal cannula Tylenol for fever Check ferritin, CRP and D dimers Droplet isolation We'll continue to follow
[2019-05-24] MEDS ORDERED: VANCOMYCIN IV PER PHARMACY 1 EACH MISC MISCELLANE SCH (12:00)
[2019-05-24] MEDS ORDERED: IPRATROPIUM-ALBUTEROL 3 ML NEB INHALATION PRN (12:43)
--- NOTE | 2019-05-24 12:49 | P.PN ---
Subjective Progress Note Date: 05/24/19 Principal diagnosis: Acute febrile illness, suspect CoVID 19 infection 74-year-old white male patient with history of advanced COPD, with baseline FEV1 of 31% of predicted, a chronic history of smoking, history of multiple comorbidities including chronic hepatitis C, essential hypertension, history of solitary lung nodule, and thoracic aortic aneurysm. Patient carries 50-pack- year smoking history, was down to half a pack a day. In August 2018 the patient was hospitalized for an extensive right lung pneumonia and a CAT scan of the chest showed early cavitation with significant consolidation of the right lower lobe. At that time, the patient had a bronchoscopy and the lavage showed MRSA. He was treated accordingly and he was discharged home. Following that, he was readmitted to the hospital for abdominal pain and a CAT scan of the abdomen was done showed complete clearing of the previously noted right lower lobe pneumonia. He did have some constipation. Since his discharge from the hospital, the patient is not smoking still wearing the patch. He is currently on a combination of Advair and Spiriva. Is on oxygen at 3 L per minute nasal cannula. He is using albuterol solution up to 4 times a day. On 05/23/2019, the patient came into the ED complaining of cough and a fever. The patient had direct contact with the people diagnosed having COVID 19 infection and this occurred during his stay in [place] where he was therefore total of 2 weeks. He is feeling weak. Denies any chest pain or palpitation related pleurisy. No nausea. No vomiting. No diarrhea. No altered mentation. No conjunctivitis. No swelling in lower extremities. The Covid 19 analysis still pending for now. His lymphocyte count is down to 0.7. His d-dimer is at 1.08. Liver function tests are within normal limits. His influenza screen was negative. The CRP level is at 0.29. CRP is at 8.7. The chest x-ray showing some increased interstitial markings in the right lung base suspicious for a developing pneumonia. He has underlying COPD with extensive emphysematous changes upper lobes bilaterally. The patient is seen today 05/24/2019 in follow-up on the regular medical floor. He is currently awake and alert in no acute distress. Resting fairly comfortably in bed. Maintaining O2 saturations in the 90s on 3 L/m per nasal cannula. He is currently afebrile. Hemodynamically stable. He had a T-max of 101.2 on admission. Sputum is positive for gram-negative bacilli. Chest x-ray shows continued bilateral patchy infiltrates. He remains on ceftriaxone and azithromycin along with bronchodilators. NicoDerm patch is in place. Covid 19 testing is negative. Objective - Vital Signs Vital signs: Vital Signs Temp 97.9 F 05/24/19 11:08 Pulse 78 05/24/19 11:08 Resp 18 05/24/19 11:08 BP 112/70 05/24/19 11:08 Pulse Ox 95 05/24/19 12:15 Intake & Output 05/23/19 05/24/19 05/24/19 18:59 06:59 18:59 Intake Total 296 50 Balance 296 50 Weight 63.503 kg Intake: Oral 296 50 Other: Voiding Method Toilet Toilet # Voids 1 - Exam General Appearance: A very pleasant 74-year-old gentleman, on 3 L nasal cannula, no diaphoresis, no respiratory distress, speech not interrupted by breaths, no dyspnea, no pallor, not cachectic, well nourished, appears well HEENT no pursed lip breathing, no jugular venous distention, no mucous membrane cyanosis, no perioral cyanosis, mallampati classification: class 1 Chest prolonged expiratory wheezing, decreased air movement, no retractions, no sternocleidomastoid muscle contractions, no supraclavicular retractions, no intercostal retractions, no decreased air movement, no rhonchi, no hyperinflation, barrel chest, Heart no right ventricular heave, no distant heart sounds, no s3 gallop GI bowel sounds: hyperactive (borborygmi), bowel sounds: diminished or absent Extremities no cyanosis, no clubbing, no edema Neurologic no decreased mental status, no somnolence, no confusion Skin General Appearance normal, (normal) normal except as noted - Labs CBC & Chem 7: 05/23/19 11:33 05/23/19 11:33 Labs: Abnormal Lab Results - Last 24 Hours (Table) 05/23/19 05/23/19 05/23/19 Range/Units 11:33 11:33 11:37 WBC 13.3 H (3.8-10.6) k/uL Neutrophils # 11.8 H (1.3-7.7) k/uL Lymphocytes # 0.7 L (1.0-4.8) k/uL D-Dimer 1.08 H (<0.60) mg/L FEU Sodium 136 L (137-145) mmol/L Chloride 97 L (98-107) mmol/L Carbon Dioxide 32 H (22-30) mmol/L Procalcitonin (0.02-0.09) ng/mL 05/23/19 Range/Units 11:37 WBC (3.8-10.6) k/uL Neutrophils # (1.3-7.7) k/uL Lymphocytes # (1.0-4.8) k/uL D-Dimer (<0.60) mg/L FEU Sodium (137-145) mmol/L Chloride (98-107) mmol/L Carbon Dioxide (22-30) mmol/L Procalcitonin 0.29 H (0.02-0.09) ng/mL Microbiology - Last 24 Hours (Table) 05/23/19 20:10 Gram Stain - Preliminary Sputum Sputum Culture - Preliminary Gram Neg Bacilli Assessment and Plan Assessment: 1 acute febrile illness secondary to bilateral pneumonia. Sputum culture with gram-negative bacilli. Previous history of MRSA pneumonia. 2 chronic hypoxic respiratory failure still On oxygen at 3 L per minute nasal cannula 3 advanced COPD with FEV1 of 31% of predicted 4 previous history of MRSA pneumonia 5 previous history of solitary pulmonary nodule in the left upper lobe measuring 9 mm in size being followed up on outpatient basis 6 history of thoracic aortic aneurysm measuring 4.2 cm 7 history of hepatitis C viral infection 8 hyperlipidemia Plan The patient was seen and evaluated by Dr. [place]ri[place] Chest x-ray, sputum culture and labs reviewed Continue ceftriaxone and azithromycin CoVID 19 testing negative Add DuoNeb inhalations, Symbicort We'll continue to follow I, the cosigning physician, performed a history & physical examination of the patient. Lungs sounds with prolonged expiratory wheeze, diminished in the bases. Maintaining good O2 saturations in the 90s on 3 L/m per nasal cannula. I discussed the assessment and plan of care with my nurse practitioner, Joi Bustamante. I attest to the above note as dictated by her.
[2019-05-24] MEDS: IPRATROPIUM-ALBUTEROL 3 ML NEB INHALATION PRN (17:05)
[2019-05-24] MEDS: NAPROXEN 250 MG TAB PO PRN (17:24)
--- NOTE | 2019-05-24 18:20 | PN ---
PROGRESS NOTE CHIEF COMPLAINT: Right-sided pneumonitis and COPD. HISTORY OF PRESENT ILLNESS: This gentleman states he is not feeling as well as he did yesterday. His temperature has been down. Vital signs are normal. REVIEW OF SYSTEMS: He has had no headaches, vomiting, diarrhea, chest pain, abdominal pain, etc. PHYSICAL EXAMINATION: Breath sounds are poor, but there are no significant rales or rhonchi. He is in sinus rhythm. Cardiac exam is otherwise normal. Abdomen is soft, nontender. IMPRESSION: 1. Right-sided bronchial pneumonia. 2. Chronic obstructive pulmonary disease. PLAN: 1. Continue with current program. 2. Covid-19 study was negative. MMODL / IJN: [id number] /
--- NOTE | 2019-05-24 18:20 | HP ---
HISTORY AND PHYSICAL CHIEF COMPLAINT: Shortness of breath, cough, and fever for 1 day. HISTORY OF PRESENT ILLNESS: This is another admission for this gentleman has a long-standing history of severe COPD and he was in the hospital last year for extended period of time for acute respiratory failure and a right-sided pneumonitis from which he gradually improved. He has been doing fairly well at home. However, unfortunately, he has started smoking again. He had acute onset of the above-mentioned symptoms and came to the emergency room where he was diagnosed as having probable right lower lobe pneumonitis. He has been in contact with some people who have been in [place] but now have been sick. Covid swab was obtained in the ER. REVIEW OF SYSTEMS: He has had no confusion, neurologic problems, hemoptysis, sputum production, chest pain, palpitations, orthopnea, PND, abdominal pain, vomiting, diarrhea, melena, hematochezia, jaundice, renal failure, dysuria, hematuria, etc. He has had no or anosmia. Past medical history, family history, personal and social histories are otherwise unremarkable and noncontributory. LABORATORY STUDIES: [place] [address]. The rest of his studies were normal including influenza swab. MEDICATIONS: His home medications include albuterol inhaler, Ventolin updraft, vitamin D, simvastatin, Atrovent, tramadol, fluticasone, Metoprolol, and Naprosyn. PHYSICAL EXAMINATION: Temperature is 101.2 with a pulse of 100 and regular, respirations of 32, blood pressure 108/72. In general, he appeared to be slender and in some mild respiratory distress. Skin color is normal. Skin is warm, dry. Lymph nodes not enlarged. Head, ears, eyes, nose, mouth, and throat were normal. Neck veins not distended. Thyroid not enlarged. Chest demonstrated increased AP diameter with very poor breath sounds. There are scattered rales and rhonchi. Cardiac exam demonstrates sinus tachycardia. The abdomen is flat, soft, nontender. Extremities are normal and neurologically he is intact. IMPRESSION: 1. Right-sided bronchial pneumonia. 2. Chronic obstructive pulmonary disease. 3. Rule out severe acute respiratory syndrome, Covid-19 too. PLAN: 1. Bed rest. 2. IV fluids. 3. Updrafts with Atrovent and albuterol. 4. IV antibiotics. MMODL / IJN: [id number] /
[2019-05-24] MEDS: ATORVASTATIN 10 MG TAB PO SCH (20:42)
[2019-05-24] MEDS: SYMBICORT 160-4.5 MCG INHALER INHALATION SCH ×2 (21:13→21:51)
[2019-05-25] MEDS: IPRATROPIUM-ALBUTEROL 3 ML NEB INHALATION PRN (03:00)
[2019-05-25] MEDS: DEXTROSE 5%-0.9% NACL 1,000 ML IV SCH ×2 (06:06→19:05)
--- NOTE | 2019-05-25 07:58 | XR ---
EXAMINATION TYPE: XR chest 1V portable DATE OF EXAM: 05/25/2019 COMPARISON: 05/24/2019 HISTORY: Follow-up for pneumonia. Shortness of breath. TECHNIQUE: Single frontal view of the chest is obtained. FINDINGS: Worsening peripheral right midlung opacity contiguous with the pleural surface and right h ilar region. Improved aeration of the left peripheral lung. No new consolidation. No new pleural effu reed or pneumothorax. Stable cardiomediastinal silhouette. Mild diffuse osseous demineralization. Pul monary hyperinflation. IMPRESSION: Continued worsening right midlung airspace disease extending from the right hilum to the pleural surface. Left-sided airspace disease has resolved. Background COPD suspected.
[2019-05-25] MEDS: FAMOTIDINE 20 MG TAB PO SCH ×2 (08:24→20:44)
[2019-05-25] MEDS: DOCUSATE 100 MG CAP PO SCH ×2 (08:24→20:43)
[2019-05-25] MEDS: FLUoxetine HCL 20 MG CAP PO SCH (08:24)
[2019-05-25] MEDS: AZITHROMYCIN 500 MG in SODIUM CHLORIDE 0.9% 250 ML IVPB SCH (08:24)
[2019-05-25] MEDS: METOPROLOL TARTRATE 12.5 MG TAB PO SCH ×2 (08:24→20:43)
[2019-05-25] MEDS: OLANZapine 2.5 MG TAB PO SCH ×3 (08:24→20:43)
[2019-05-25] MEDS: NICOTINE 21MG/24HR PATCH TRANSDERM SCH (08:25)
[2019-05-25] MEDS: traMADol 50 MG TAB PO PRN ×2 (08:27→20:46)
[2019-05-25] MEDS: SYMBICORT 160-4.5 MCG INHALER INHALATION SCH ×2 (08:59→20:22)
[2019-05-25 12:01] LABS: Basophils % (A) 0 %; Eosinophils # (A) 0.3 k/uL (0-0.7); Eosinophils % (A) 3 %; HCT 37.9 % (39.0-53.0); HGB 12.3 gm/dL (13.0-17.5); Lymphocytes # (A) 0.8 k/uL (1.0-4.8); Lymphocytes % (A) 7 %; MCHC 32.5 g/dL (31.0-37.0); MCV 92.4 fL (80.0-100.0); Monocytes # (A) 0.6 k/uL (0-1.0); Monocytes % (A) 5 %; Neutrophils # (A) 9.4 k/uL (1.3-7.7); Neutrophils % (A) 82 %; Platelet Count 156 k/uL (150-450); RDW 13.4 % (11.5-15.5); WBC 11.4 k/uL (3.8-10.6)
[2019-05-25 12:06] LABS: ALT 14 U/L (4-49); AST 20 U/L (17-59); African American GFR (CKD) >90 (>60 ml/min/1.73 sqM); Albumin 3.3 g/dL (3.5-5.0); Alkaline Phosphatase 58 U/L (38-126); Anion Gap 2 mmol/L; Blood Urea Nitrogen 14 mg/dL (9-20); Calcium 8.4 mg/dL (8.4-10.2); Carbon Dioxide 35 mmol/L (22-30); Chloride 100 mmol/L (98-107); Glucose 119 mg/dL (74-99); Non-African American GFR(CKD) 78 (>60 ml/min/1.73 sqM); Potassium 4.1 mmol/L (3.5-5.1); Sodium 137 mmol/L (137-145); Total Bilirubin 0.6 mg/dL (0.2-1.3)
--- NOTE | 2019-05-25 13:51 | P.PN ---
Subjective Progress Note Date: 05/25/19 Principal diagnosis: Acute febrile illness, suspect COVID 19 infection 74-year-old white male patient with history of advanced COPD, with baseline FEV1 of 31% of predicted, a chronic history of smoking, history of multiple comorbidities including chronic hepatitis C, essential hypertension, history of solitary lung nodule, and thoracic aortic aneurysm. Patient carries 50-pack- year smoking history, was down to half a pack a day. In August 2018 the patient was hospitalized for an extensive right lung pneumonia and a CAT scan of the chest showed early cavitation with significant consolidation of the right lower lobe. At that time, the patient had a bronchoscopy and the lavage showed MRSA. He was treated accordingly and he was discharged home. Following that, he was readmitted to the hospital for abdominal pain and a CAT scan of the abdomen was done showed complete clearing of the previously noted right lower lobe pneumonia. He did have some constipation. Since his discharge from the hospital, the patient is not smoking still wearing the patch. He is currently on a combination of Advair and Spiriva. Is on oxygen at 3 L per minute nasal cannula. He is using albuterol solution up to 4 times a day. On 05/23/2019, the patient came into the ED complaining of cough and a fever. The patient had direct contact with the people diagnosed having COVID 19 infection and this occurred during his stay in [place] where he was therefore total of 2 weeks. He is feeling weak. Denies any chest pain or palpitation related pleurisy. No nausea. No vomiting. No diarrhea. No altered mentation. No conjunctivitis. No swelling in lower extremities. The Covid 19 analysis still pending for now. His lymphocyte count is down to 0.7. His d-dimer is at 1.08. Liver function tests are within normal limits. His influenza screen was negative. The CRP level is at 0.29. CRP is at 8.7. The chest x-ray showing some increased interstitial markings in the right lung base suspicious for a developing pneumonia. He has underlying COPD with extensive emphysematous changes upper lobes bilaterally. The patient is seen today 05/24/2019 in follow-up on the regular medical floor. He is currently awake and alert in no acute distress. Resting fairly comfortably in bed. Maintaining O2 saturations in the 90s on 3 L/m per nasal cannula. He is currently afebrile. Hemodynamically stable. He had a T-max of 101.2 on admission. Sputum is positive for gram-negative bacilli. Chest x-ray shows continued bilateral patchy infiltrates. He remains on ceftriaxone and azithromycin along with bronchodilators. NicoDerm patch is in place. Covid 19 testing is negative. On 05/25/2019 patient seen in follow-up on a general medical floor. He is awake and alert, in no acute distress, he is currently on 4 L of oxygen and pulse ox is 93-99%, afebrile, hemodynamically stable, fever pattern has improved, and patient has been afebrile for the last 48 hours. Today's lab work has been reviewed showing white blood cell count of 11.4, hemoglobin is 12.3, electrolytes were within normal limits with the exception of CO2 which is at 35, and renal profile was within normal limits, coronavirus PCR, influenza and B were ruled out, pro-calcitonin level came back elevated to 0.29, and patient remains on a combination of antibiotics including Rocephin and Zithromax, sputum cultures positive for Klebsiella pneumonia, blood culture has shown no growth at the 24-hour neptali. Chest x-ray today showed continued worsening of the right midlung airspace disease extending from the right hilum to the pleural space and a left-sided airspace disease has resolved on today's chest x-ray. Objective - Vital Signs Vital signs: Vital Signs Temp 97.7 F 05/25/19 07:00 Pulse 100 05/25/19 07:00 Resp 17 05/25/19 07:00 BP 142/77 05/25/19 07:00 Pulse Ox 93 L 05/25/19 07:00 Intake & Output 05/24/19 05/25/19 05/25/19 18:59 06:59 18:59 Intake Total 640 Output Total 800 950 Balance -160 -950 Intake: IV 640 Dextrose 5%-0.9% NaCl 1, 640 000 ml @ 80 mls/hr IV . [id number] [facility] Rx#:[id number] Output: Urine 800 950 Other: Voiding Method Toilet Toilet - Exam GENERAL EXAM: Alert, very pleasant, 74-year-old white male, currently on 4 L of oxygen with a pulse ox of 93% comfortable in no apparent distress. HEAD: Normocephalic/atraumatic. EYES: Normal reaction of pupils, equal size. Conjunctiva pink, sclera white. NOSE: Clear with pink turbinates. THROAT: No erythema or exudates. NECK: No masses, no JVD, no thyroid enlargement, no adenopathy. CHEST: No chest wall deformity. Symmetrical expansion. LUNGS: Equal air entry with crackles over right midlung area CVS: Regular rate and rhythm, normal S1 and S2, no gallops, no murmurs, no rubs ABDOMEN: Soft, nontender. No hepatosplenomegaly, normal bowel sounds, no guarding or rigidity. EXTREMITIES: No clubbing, no edema, no cyanosis, 2+ pulses and upper and lower extremities. MUSCULOSKELETAL: Muscle strength and tone normal. SPINE: No scoliosis or deformity SKIN: No rashes CENTRAL NERVOUS SYSTEM: Alert and oriented -3. No focal deficits, tone is no rmal in all 4 extremities. PSYCHIATRIC: Alert and oriented -3. Appropriate affect. Intact judgment and insight. - Labs CBC & Chem 7: 05/25/19 11:32 05/25/19 11:32 Labs: Abnormal Lab Results - Last 24 Hours (Table) 05/25/19 05/25/19 Range/Units 11:32 11:32 WBC 11.4 H (3.8-10.6) k/uL RBC 4.10 L (4.30-5.90) m/uL Hgb 12.3 L (13.0-17.5) gm/dL Hct 37.9 L (39.0-53.0) % Neutrophils # 9.4 H (1.3-7.7) k/uL Lymphocytes # 0.8 L (1.0-4.8) k/uL Carbon Dioxide 35 H (22-30) mmol/L Glucose 119 H (74-99) mg/dL Total Protein 6.0 L (6.3-8.2) g/dL Albumin 3.3 L (3.5-5.0) g/dL Microbiology - Last 24 Hours (Table) 05/23/19 20:10 Gram Stain - Final Sputum Sputum Culture - Final Klebsiella pneumoniae 05/23/19 12:15 Blood Culture - Preliminary Blood No Growth after 24 hours Assessment and Plan Plan: Assessment: #1. Acute febrile illness secondary to bilateral pneumonia, related to Klebsiella pneumonia. COVID19 has been ruled out, influenza is negative #2. Acute hypoxemic respiratory failure related to the above #3. Advanced COPD with FEV1 of 31% of predicted #4. Previous history of MRSA pneumonia #5. Previous history of solitary pulmonary nodule in the left upper lobe measuring 9 mm in size being followed and on outpatient basis #6. History of thoracic aortic aneurysm measuring 4.2 cm #7. History of hepatitis C viral infection #8. Hyperlipidemia #9. Chronic back pain #10. History of nicotine dependence, patient carries [id number] smoking histo ry #11. Psoriasis Plan: We'll stop the azithromycin and Rocephin, will start Levaquin, and vancomycin per pharmacy to dose. Continue Symbicort, continue breathing treatments, today's chest x-ray has been reviewed still showing significant right midlung pneumonia extending to the right hilum. Covid 19 has been ruled out. Follow-up chest x-ray tomorrow. We'll continue to follow clinical course I performed a history & physical examination of the patient and discussed their management with my nurse practitioner, Ashtyn Grigsby. I reviewed the nurse practitioner's note and agree with the documented findings and plan of care. Lung sounds are positive for crackles in the right base. The findings and the impression was discussed with the patient. I attest to the documentation by the nurse practitioner. Time with Patient: Less than 30
[2019-05-25] MEDS ORDERED: VANCOMYCIN IV PER PHARMACY 1 EACH MISC MISCELLANE PRN (13:52)
[2019-05-25] MEDS ORDERED: ALBUTEROL HFA INHALER INHALATION PRN ×2 (15:14→15:20)
[2019-05-25] MEDS: ALBUTEROL HFA INHALER INHALATION SCH ×2 (15:28→20:22)
--- NOTE | 2019-05-25 15:50 | PN ---
PROGRESS NOTE DATE OF SERVICE: 05/25/2019 CHIEF COMPLAINT: Right lower lobe pneumonitis, COPD and shortness of breath. HISTORY OF PRESENT ILLNESS: This gentleman is doing a little bit better today. He feels a little stronger and slightly less short of breath. PHYSICAL EXAMINATION: His chest demonstrates very poor breath sounds throughout with occasional rales at the right base and decreased sounds in that area. Cardiac exam is normal. Abdomen is soft, nontender. IMPRESSION: 1. Right lower lobe pneumonitis. 2. Chronic obstructive pulmonary disease. 3. Generalized weakness. 4. Amyloidosis. PLAN: Continue with IV fluids, updrafts and antibiotics and discharge home as soon as he is stable. MMODL / IJN: [id number] /
[2019-05-25] MEDS: VANCOMYCIN 1,250 MG in SODIUM CHLORIDE 0.9% 250 ML IVPB SCH (16:16)
[2019-05-25] MEDS: LEVOFLOXACIN 750MG-D5W PMX 750 MG in DEXTROSE/WATER 1 150ML.BAG IVPB SCH (19:03)
[2019-05-25] MEDS: ATORVASTATIN 10 MG TAB PO SCH (20:44)
[2019-05-26] MEDS: VANCOMYCIN 1,250 MG in SODIUM CHLORIDE 0.9% 250 ML IVPB SCH ×2 (05:07→20:51)
[2019-05-26] MEDS: ALBUTEROL HFA INHALER INHALATION SCH ×4 (07:10→20:08)
[2019-05-26] MEDS: SYMBICORT 160-4.5 MCG INHALER INHALATION SCH ×2 (07:10→20:08)
[2019-05-26] MEDS: NICOTINE 21MG/24HR PATCH TRANSDERM SCH (07:37)
[2019-05-26] MEDS: METOPROLOL TARTRATE 12.5 MG TAB PO SCH ×2 (07:37→20:52)
[2019-05-26] MEDS: DOCUSATE 100 MG CAP PO SCH ×2 (07:38→20:52)
[2019-05-26] MEDS: OLANZapine 2.5 MG TAB PO SCH ×3 (07:38→20:52)
[2019-05-26] MEDS: FAMOTIDINE 20 MG TAB PO SCH ×2 (07:38→20:52)
[2019-05-26] MEDS: FLUoxetine HCL 20 MG CAP PO SCH (07:38)
--- NOTE | 2019-05-26 08:06 | XR ---
EXAMINATION TYPE: XR chest 1V portable DATE OF EXAM: 05/26/2019 Comparison: 05/25/2019 Clinical History: 74-year-old male bilateral pneumonia Findings: Heart normal size. Aorta and pulmonary vasculature within normal limits. Air space opacity right uppe r lobe and to a lesser extent within the right mid to lower lung shows some interval improvement. Impression: Persistent but improving airspace disease on the right.
[2019-05-26] MEDS ORDERED: AZITHROMYCIN 500 MG TAB PO SCH (09:00)
[2019-05-26] MEDS: TIOTROPIUM 18 MCG/PUFF INHALER INHALATION SCH (10:56)
--- NOTE | 2019-05-26 13:06 | P.PN ---
Subjective Progress Note Date: 05/26/19 Principal diagnosis: Acute febrile illness, suspect COVID 19 infection 74-year-old white male patient with history of advanced COPD, with baseline FEV1 of 31% of predicted, a chronic history of smoking, history of multiple comorbidities including chronic hepatitis C, essential hypertension, history of solitary lung nodule, and thoracic aortic aneurysm. Patient carries 50-pack- year smoking history, was down to half a pack a day. In August 2018 the patient was hospitalized for an extensive right lung pneumonia and a CAT scan of the chest showed early cavitation with significant consolidation of the right lower lobe. At that time, the patient had a bronchoscopy and the lavage showed MRSA. He was treated accordingly and he was discharged home. Following that, he was readmitted to the hospital for abdominal pain and a CAT scan of the abdomen was done showed complete clearing of the previously noted right lower lobe pneumonia. He did have some constipation. Since his discharge from the hospital, the patient is not smoking still wearing the patch. He is currently on a combination of Advair and Spiriva. Is on oxygen at 3 L per minute nasal cannula. He is using albuterol solution up to 4 times a day. On 05/23/2019, the patient came into the ED complaining of cough and a fever. The patient had direct contact with the people diagnosed having COVID 19 infection and this occurred during his stay in [place] where he was therefore total of 2 weeks. He is feeling weak. Denies any chest pain or palpitation related pleurisy. No nausea. No vomiting. No diarrhea. No altered mentation. No conjunctivitis. No swelling in lower extremities. The Covid 19 analysis still pending for now. His lymphocyte count is down to 0.7. His d-dimer is at 1.08. Liver function tests are within normal limits. His influenza screen was negative. The CRP level is at 0.29. CRP is at 8.7. The chest x-ray showing some increased interstitial markings in the right lung base suspicious for a developing pneumonia. He has underlying COPD with extensive emphysematous changes upper lobes bilaterally. The patient is seen today 05/24/2019 in follow-up on the regular medical floor. He is currently awake and alert in no acute distress. Resting fairly comfortably in bed. Maintaining O2 saturations in the 90s on 3 L/m per nasal cannula. He is currently afebrile. Hemodynamically stable. He had a T-max of 101.2 on admission. Sputum is positive for gram-negative bacilli. Chest x-ray shows continued bilateral patchy infiltrates. He remains on ceftriaxone and azithromycin along with bronchodilators. NicoDerm patch is in place. Covid 19 testing is negative. On 05/25/2019 patient seen in follow-up on a general medical floor. He is awake and alert, in no acute distress, he is currently on 4 L of oxygen and pulse ox is 93-99%, afebrile, hemodynamically stable, fever pattern has improved, and patient has been afebrile for the last 48 hours. Today's lab work has been reviewed showing white blood cell count of 11.4, hemoglobin is 12.3, electrolytes were within normal limits with the exception of CO2 which is at 35, and renal profile was within normal limits, coronavirus PCR, influenza and B were ruled out, pro-calcitonin level came back elevated to 0.29, and patient remains on a combination of antibiotics including Rocephin and Zithromax, sputum cultures positive for Klebsiella pneumonia, blood culture has shown no growth at the 24-hour neptali. Chest x-ray today showed continued worsening of the right midlung airspace disease extending from the right hilum to the pleural space and a left-sided airspace disease has resolved on today's chest x-ray. On 05/26/2019 patient seen in follow-up on a general medical floor. He is currently on 4 L of oxygen with a pulse ox of 93-95%, appears to be in no acute distress, he states his breathing is improving although she is still having some right-sided pleuritic chest pain with deep breathing and coughing. He is afebrile, respirations are nonlabored, follow-up chest x-ray has been reviewed today is showing persistent but improving airspace disease. Today we change his antibiotics to Levaquin and vancomycin in view of his previous history of MRSA pneumonia. Objective - Vital Signs Vital signs: Vital Signs Temp 98.3 F 05/26/19 06:33 Pulse 89 05/26/19 06:33 Resp 19 05/26/19 01:49 BP 124/77 05/26/19 06:33 Pulse Ox 93 L 05/26/19 06:33 Intake & Output 04/06/20 04/07/20 04/07/20 18:59 06:59 18:59 Intake Total 400 100 Balance 400 100 Intake: Intake, IV Titration 400 Amount Levofloxacin 750Mg-D5w 150 Pmx 750 mg In Dextrose/ Water 1 150ml.bag @ 100 mls/hr IVPB Q24H [facility] Rx#: [id number] Vancomycin 1,250 mg In 250 Sodium Chloride 0.9% 250 ml @ 125 mls/hr IVPB Q16H [facility] Rx#:[id number] Oral 100 Other: # Voids 400 1 - Exam GENERAL EXAM: Alert, very pleasant, 74-year-old white male, currently on 4 L of oxygen with a pulse ox of 93% comfortable in no apparent distress. HEAD: Normocephalic/atraumatic. EYES: Normal reaction of pupils, equal size. Conjunctiva pink, sclera white. NOSE: Clear with pink turbinates. THROAT: No erythema or exudates. NECK: No masses, no JVD, no thyroid enlargement, no adenopathy. CHEST: No chest wall deformity. Symmetrical expansion. LUNGS: Equal air entry with crackles over right midlung area CVS: Regular rate and rhythm, normal S1 and S2, no gallops, no murmurs, no rubs ABDOMEN: Soft, nontender. No hepatosplenomegaly, normal bowel sounds, no guarding or rigidity. EXTREMITIES: No clubbing, no edema, no cyanosis, 2+ pulses and upper and lower extremities. MUSCULOSKELETAL: Muscle strength and tone normal. SPINE: No scoliosis or deformity SKIN: No rashes CENTRAL NERVOUS SYSTEM: Alert and oriented -3. No focal deficits, tone is normal in all 4 extremities. PSYCHIATRIC: Alert and oriented -3. Appropriate affect. Intact judgment and insight. - Labs CBC & Chem 7: 05/25/19 11:32 05/25/19 11:32 Labs: Microbiology - Last 24 Hours (Table) 05/23/19 12:15 Blood Culture - Preliminary Blood No Growth after 48 hours 05/23/19 20:10 Gram Stain - Final Sputum Sputum Culture - Final Klebsiella pneumoniae Assessment and Plan Plan: Assessment: #1. Acute febrile illness secondary to bilateral pneumonia, related to Klebsiella pneumonia. COVID19 has been ruled out, influenza is negative #2. Acute hypoxemic respiratory failure related to the above #3. Advanced COPD with FEV1 of 31% of predicted #4. Previous history of MRSA pneumonia #5. Previous history of solitary pulmonary nodule in the left upper lobe measuring 9 mm in size being followed and on outpatient basis #6. History of thoracic aortic aneurysm measuring 4.2 cm #7. History of hepatitis C viral infection #8. Hyperlipidemia #9. Chronic back pain #10. History of nicotine dependence, patient carries [id number] smoking history #11. Psoriasis Plan: Today's chest x-ray shows persistent but improving airspace disease on the right, continue with current antibiotics including Levaquin and vancomycin, we will add Medrol Dosepak, continue weaning FiO2, follow-up chest x-ray tomorrow. We'll continue to follow I performed a history & physical examination of the patient and discussed their management with my nurse practitioner, Ashtyn Grigsby. I reviewed the nurse practitioner's note and agree with the documented findings and plan of care. Lung sounds are positive for crackles in the right base. The findings and the impression was discussed with the patient. I attest to the documentation by the nurse practitioner. Time with Patient: Less than 30
[2019-05-26] MEDS: DEXTROSE 5%-0.9% NACL 1,000 ML IV SCH ×2 (14:21→19:15)
[2019-05-26] MEDS: LEVOFLOXACIN 750MG-D5W PMX 750 MG in DEXTROSE/WATER 1 150ML.BAG IVPB SCH (15:29)
[2019-05-26] MEDS: methylPREDNISolone 4 MG TAB TAPER PO SCH (15:29)
--- NOTE | 2019-05-26 17:12 | PN ---
PROGRESS NOTE CHIEF COMPLAINT: Right-sided pneumonitis and COPD. HISTORY OF PRESENT ILLNESS: This gentleman is doing well. He is feeling better and he is less short of breath. He states he has had no fever, no chills, no cough, no chest pain, etc. PHYSICAL EXAMINATION: Color is good. Hydration is good. Head, ears, eyes, nose, mouth, and throat are normal. Chest is fairly clear but breath sounds are diminished on the right with occasional rales and rhonchi. The cardiac exam is normal and the abdomen is soft, nontender. Extremities normal. IMPRESSION: 1. Right lower lobe pneumonitis. 2. Chronic obstructive pulmonary disease. PLAN: 1. Progress activity and diet. 2. Pulmonology wants him to stay in the hospital for 2 or 3 more days. MMODL / LISAN: [id number] /
[2019-05-26] MEDS: ATORVASTATIN 10 MG TAB PO SCH (20:52)
[2019-05-26] MEDS: traMADol 50 MG TAB PO PRN (20:52)
--- NOTE | 2019-05-27 07:28 | XR ---
EXAMINATION TYPE: XR chest 1V portable DATE OF EXAM: 05/27/2019 HISTORY: Shortness of breath. COMPARISON: 05/26/2019 TECHNIQUE: Single view of the chest is submitted. FINDINGS: Demonstrated are scattered senescent parenchymal change. Persistent right perihilar and right upper lobe interstitial infiltrate appears improved. The heart is stable. Hilar and mediastinal structures are within normal limits. Degenerative changes are seen of the dorsal spine. IMPRESSION: 1. Persistent right perihilar and right upper lobe interstitial infiltrate appears improved.
[2019-05-27] MEDS: ALBUTEROL HFA INHALER INHALATION SCH ×3 (07:42→15:15)
[2019-05-27] MEDS: SYMBICORT 160-4.5 MCG INHALER INHALATION SCH (07:43)
[2019-05-27] MEDS: TIOTROPIUM 18 MCG/PUFF INHALER INHALATION SCH (07:43)
[2019-05-27] MEDS: METOPROLOL TARTRATE 12.5 MG TAB PO SCH (07:55)
[2019-05-27] MEDS: DOCUSATE 100 MG CAP PO SCH (07:55)
[2019-05-27] MEDS: NICOTINE 21MG/24HR PATCH TRANSDERM SCH (07:55)
[2019-05-27] MEDS: FAMOTIDINE 20 MG TAB PO SCH (07:56)
[2019-05-27] MEDS: methylPREDNISolone 4 MG TAB TAPER PO SCH (07:56)
[2019-05-27] MEDS: FLUoxetine HCL 20 MG CAP PO SCH (07:56)
[2019-05-27] MEDS: OLANZapine 2.5 MG TAB PO SCH ×2 (07:58→16:16)
[2019-05-27 08:05] LABS: HCT 42.2 % (39.0-53.0); HGB 13.9 gm/dL (13.0-17.5); MCH 30.3 pg (25.0-35.0); MCHC 33.1 g/dL (31.0-37.0); MCV 91.7 fL (80.0-100.0); Mean Platelet Volume 7.8; Platelet Count 239 k/uL (150-450); WBC 6.5 k/uL (3.8-10.6)
[2019-05-27 08:20] LABS: African American GFR (CKD) >90 (>60 ml/min/1.73 sqM); Anion Gap 9 mmol/L; Blood Urea Nitrogen 19 mg/dL (9-20); Calcium 9.7 mg/dL (8.4-10.2); Carbon Dioxide 34 mmol/L (22-30); Chloride 95 mmol/L (98-107); Glucose 136 mg/dL (74-99); Non-African American GFR(CKD) 83 (>60 ml/min/1.73 sqM); Potassium 4.5 mmol/L (3.5-5.1); Sodium 138 mmol/L (137-145)
--- NOTE | 2019-05-27 11:20 | DS ---
DISCHARGE SUMMARY CHIEF COMPLAINT: Shortness of breath and fever with right lower lobe pneumonitis. HISTORY OF PRESENT ILLNESS AND PHYSICAL EXAM: Details of this man's history and physical can be found in the initial workup. LABORATORY STUDIES: While he was in the hospital he had laboratory studies, details of which can be found in the laboratory section of his chart. COURSE IN THE HOSPITAL: After admission he was placed on bedrest, started on intravenous fluids, updrafts and IV antibiotics. He was seen and followed by Pulmonology and he did well. Temperature came down and shortness of breath improved. He was ambulating, eating, it was felt that he could return home. His COVID-19 was negative. FINAL DIAGNOSES: 1. Right lower lobe pneumonitis. 2. Chronic obstructive pulmonary disease. 3. Amyloidosis. 4. Congestive heart failure. OPERATIONS: None. CONSULTATIONS: Pulmonology. He is improved. LEIA / CLARKE: [id number] /
--- NOTE | 2019-05-27 13:51 | P.PN ---
Subjective Progress Note Date: 05/27/19 Principal diagnosis: Acute febrile illness, suspect COVID 19 infection 74-year-old white male patient with history of advanced COPD, with baseline FEV1 of 31% of predicted, a chronic history of smoking, history of multiple comorbidities including chronic hepatitis C, essential hypertension, history of solitary lung nodule, and thoracic aortic aneurysm. Patient carries 50-pack- year smoking history, was down to half a pack a day. In August 2018 the patient was hospitalized for an extensive right lung pneumonia and a CAT scan of the chest showed early cavitation with significant consolidation of the right lower lobe. At that time, the patient had a bronchoscopy and the lavage showed MRSA. He was treated accordingly and he was discharged home. Following that, he was readmitted to the hospital for abdominal pain and a CAT scan of the abdomen was done showed complete clearing of the previously noted right lower lobe pneumonia. He did have some constipation. Since his discharge from the hospital, the patient is not smoking still wearing the patch. He is currently on a combination of Advair and Spiriva. Is on oxygen at 3 L per minute nasal cannula. He is using albuterol solution up to 4 times a day. On 05/23/2019, the patient came into the ED complaining of cough and a fever. The patient had direct contact with the people diagnosed having COVID 19 infection and this occurred during his stay in [place] where he was therefore total of 2 weeks. He is feeling weak. Denies any chest pain or palpitation related pleurisy. No nausea. No vomiting. No diarrhea. No altered mentation. No conjunctivitis. No swelling in lower extremities. The Covid 19 analysis still pending for now. His lymphocyte count is down to 0.7. His d-dimer is at 1.08. Liver function tests are within normal limits. His influenza screen was negative. The CRP level is at 0.29. CRP is at 8.7. The chest x-ray showing some increased interstitial markings in the right lung base suspicious for a developing pneumonia. He has underlying COPD with extensive emphysematous changes upper lobes bilaterally. The patient is seen today 05/24/2019 in follow-up on the regular medical floor. He is currently awake and alert in no acute distress. Resting fairly comfortably in bed. Maintaining O2 saturations in the 90s on 3 L/m per nasal cannula. He is currently afebrile. Hemodynamically stable. He had a T-max of 101.2 on admission. Sputum is positive for gram-negative bacilli. Chest x-ray shows continued bilateral patchy infiltrates. He remains on ceftriaxone and azithromycin along with bronchodilators. NicoDerm patch is in place. Covid 19 testing is negative. On 05/25/2019 patient seen in follow-up on a general medical floor. He is awake and alert, in no acute distress, he is currently on 4 L of oxygen and pulse ox is 93-99%, afebrile, hemodynamically stable, fever pattern has improved, and patient has been afebrile for the last 48 hours. Today's lab work has been reviewed showing white blood cell count of 11.4, hemoglobin is 12.3, electrolytes were within normal limits with the exception of CO2 which is at 35, and renal profile was within normal limits, coronavirus PCR, influenza and B were ruled out, pro-calcitonin level came back elevated to 0.29, and patient remains on a combination of antibiotics including Rocephin and Zithromax, sputum cultures positive for Klebsiella pneumonia, blood culture has shown no growth at the 24-hour neptali. Chest x-ray today showed continued worsening of the right midlung airspace disease extending from the right hilum to the pleural space and a left-sided airspace disease has resolved on today's chest x-ray. On 05/26/2019 patient seen in follow-up on a general medical floor. He is currently on 4 L of oxygen with a pulse ox of 93-95%, appears to be in no acute distress, he states his breathing is improving although she is still having some right-sided pleuritic chest pain with deep breathing and coughing. He is afebrile, respirations are nonlabored, follow-up chest x-ray has been reviewed today is showing persistent but improving airspace disease. Today we change his antibiotics to Levaquin and vancomycin in view of his previous history of MRSA pneumonia. On 05/27/2019 patient is seen in follow-up on a general medical floor, he is feeling better, he said chest pain has subsided, today's chest x-ray has been reviewed showing persistent right perihilar and right upper lobe interstitial infiltrates, however he continues to improve. Patient remains on 4 L of oxygen with a pulse ox of 91-93%, afebrile. Lab work has been reviewed, white blood cell count has improved, down to 6.5, hemoglobin is 13.9, sodium is 138, potassium is 4.5, chloride is 95, CO2 34, renal profile was unremarkable. Pa tient was negative for Covid 19 infection. Sputum cultures positive for Klebsiella pneumonia, patient was treated with Levaquin and vancomycin, vancomycin can be discontinued, we'll keep the patient's on oral Levaquin, and from pulmonary perspective patient can be considered for discharge home today. Objective - Vital Signs Vital signs: Vital Signs Temp 98.1 F 05/27/19 07:00 Pulse 103 H 05/27/19 07:59 Resp 16 05/27/19 07:59 BP 119/72 05/27/19 07:00 Pulse Ox 91 L 05/27/19 07:00 Intake & Output 05/26/19 05/27/19 05/27/19 18:59 06:59 18:59 Intake Total 300 250 440 Balance 300 250 440 Intake: Intake, IV Titration 250 Amount Vancomycin 1,250 mg In 250 Sodium Chloride 0.9% 250 ml @ 125 mls/hr IVPB Q16H [facility] Rx#:[id number] Oral 300 440 Other: Voiding Method Toilet Toilet # Voids 2 2 - Exam GENERAL EXAM: Alert, very pleasant, 74-year-old white male, currently on 4 L of oxygen with a pulse ox of 91% comfortable in no apparent distress. HEAD: Normocephalic/atraumatic. EYES: Normal reaction of pupils, equal size. Conjunctiva pink, sclera white. NOSE: Clear with pink turbinates. THROAT: No erythema or exudates. NECK: No masses, no JVD, no thyroid enlargement, no adenopathy. CHEST: No chest wall deformity. Symmetrical expansion. LUNGS: Equal air entry with crackles over right midlung area CVS: Regular rate and rhythm, normal S1 and S2, no gallops, no murmurs, no rubs ABDOMEN: Soft, nontender. No hepatosplenomegaly, normal bowel sounds, no guarding or rigidity. EXTREMITIES: No clubbing, no edema, no cyanosis, 2+ pulses and upper and lower extremities. MUSCULOSKELETAL: Muscle strength and tone normal. SPINE: No scoliosis or deformity SKIN: No rashes CENTRAL NERVOUS SYSTEM: Alert and oriented -3. No focal deficits, tone is normal in all 4 extremities. PSYCHIATRIC: Alert and oriented -3. Appropriate affect. Intact judgment and insight. - Labs CBC & Chem 7: 05/27/19 07:20 05/27/19 07:20 Labs: Abnormal Lab Results - Last 24 Hours (Table) 05/27/19 05/27/19 Range/Units 07:20 07:20 Chloride 95 L (98-107) mmol/L Carbon Dioxide 34 H (22-30) mmol/L Glucose 136 H (74-99) mg/dL Procalcitonin 0.28 H (0.02-0.09) ng/mL Microbiology - Last 24 Hours (Table) 05/23/19 12:15 Blood Culture - Preliminary Blood No Growth after 72 hours Assessment and Plan Plan: Assessment: #1. Acute febrile illness secondary to bilateral pneumonia, related to Klebsiella pneumonia. COVID19 has been ruled out, influenza is negative #2. Acute hypoxemic respiratory failure related to the above #3. Advanced COPD with FEV1 of 31% of predicted #4. Previous history of MRSA pneumonia #5. Previous history of solitary pulmonary nodule in the left upper lobe measuring 9 mm in size being followed and on outpatient basis #6. History of thoracic aortic aneurysm measuring 4.2 cm #7. History of hepatitis C viral infection #8. Hyperlipidemia #9. Chronic back pain #10. History of nicotine dependence, patient carries [id number] smoking history #11. Psoriasis Plan: Follow-up chest x-ray shows improvement in the appearance of right perihilar and right upper lobe infiltrate, clinically stable, afebrile, vancomycin will be discontinued, patient can finish outpatient course of oral Levaquin, outpatient follow-up in the office with Dr. Anderson in the 1 or 2 weeks. Stable for discharge I performed a history & physical examination of the patient and discussed their management with my nurse practitioner, Ashtyn Grigsby. I reviewed the nurse practitioner's note and agree with the documented findings and plan of care. Lung sounds are positive for crackles in the right base. The findings and the impression was discussed with the patient. I attest to the documentation by the nurse practitioner. Time with Patient: Less than 30
[2019-05-27 14:48] VITALS: BP 113/72; PULSE 86; RESP 17; TEMP 97.7
[2019-05-27] MEDS ORDERED: LEVOFLOXACIN 750 MG TAB PO SCH (16:00)
[2019-05-28] MEDS ORDERED: VANCOMYCIN TROUGH DUE 1 EACH MISC MISCELLANE ONE (05:00)
--- NOTE | 2019-05-28 14:24 | CDI ---
Documentation Clarification Form Date: 05/28/2019 02:08:19 PM From: Laura Becker CCS, CCDS Admit Date: 05/23/2019 02:45:00 PM Patient Name: Jim Victoria Visit Number: [id number] Discharge Date: 05/27/2019 06:45:00 PM ATTENTION: The Clinical Documentation Specialists (CDI) and [facility] Coding Staff appreciate your assistance in clarifying documentation. Please respond to the clarification below the line at the bottom and electronically sign. The CDI & [facility] Coding staff will review the response and follow-up if needed. Please note: Queries are made part of the Legal Health Record. If you have any questions, please contact the author of this message via ITS. Dr. Gerber Grissom: CHF is documented in the 05/26 Discharge Summary without a documented history or specificity. History/Risk Factors: COPD, Hyperlipidemia, Chronic hypoxic respiratory failure, Pneumonia w/MRSA, Solitary pulmonary nodule, Thoracic aortic aneurysm, Chronic Hepatitis C, Back fusion & former smoker. Clinical Indicators: Patient with advanced COPD presented to the ED on 05/22 with dyspnea, cough & a fever. He had direct contact with persons diagnosed with COVID 19 in [place]. No lower extremity swelling. Some pleuritic chest pain with deep breathing & coughing. Ruled out for COVID-19. VS: T 101.2, P 110, R 22, BP 108/72, PO 93 3Lnc. BNP: not done this admission. Previous on 09/19/2018: 102. Echocardiogram Results: No ECHO to date in patient's record(s) Chest X Ray 05/22: COPD, Developing right lower lobe pneumonia. 05/24 CXR: COPD. 05/26 CXR: Persistent right perihilar & RUL interstitial infiltrate improved. Home Rx: Ultram, Spiriva, Wixela puffs, Albuterol INH, Medrol dose pack, po Levaquin, Symbicort INH. Treatment: INH Albuterol, IV Doxycycline, IV Rocephin, IV Vanco In your professional opinion, can you please clarify the acuity and type of CHF if known? Heart Failure is ruled out Systolic Heart Failure: o Chronic Diastolic Heart Failure: o Chronic Systolic & Diastolic Heart Failure: o Chronic Unable to Determine Other, please specify (Last Revision: May 2017) MTDD
--- NOTE | 2019-05-29 10:44 | MISC ---
MISCELLANOUS REPORT QUERY: Heart failure ruled out. MMODL / IJN: [id number] /
== END 2019-05-27 18:45 | disposition home or self-care (01) | DRG 177 ==
LOC: EC 11:24 → 4SSUR 14:45
PROVIDERS: ADMIT Family Medicine; ATTEND Family Medicine
DX: J15.0 Pneumonia due to Klebsiella pneumoniae (principal); J96.21 Acute and chronic respiratory failure with hypoxia; E85.9 Amyloidosis, unspecified; J43.9 Emphysema, unspecified; E78.5 Hyperlipidemia, unspecified; F17.200 Nicotine dependence, unspecified, uncomplicated; G89.29 Other chronic pain; I11.0 Hypertensive heart disease with heart failure; I50.9 Heart failure, unspecified; K59.00 Constipation, unspecified; L40.9 Psoriasis, unspecified; Z20.828 Contact with and (suspected) exposure to other viral communicable diseases; Z79.899 Other long term (current) drug therapy; Z82.49 Family history of ischemic heart disease and other diseases of the circulatory system; Z86.14 Personal history of Methicillin resistant Staphylococcus aureus infection; Z87.01 Personal history of pneumonia (recurrent); Z98.1 Arthrodesis status; Z86.19 Personal history of other infectious and parasitic diseases
CPT/HCPCS: 36415; 71045; 80048; 80053; 82728; 83605; 83735; 84145; 85025; 85027; 85379; 86140; 87040; 87070; 87077; 87186; 87205; 87502; 87635; 93005; 94640; 96365; 96366; 99285

== ENCOUNTER 2020-01-20 18:29 | Inpatient (IN) | payer MEDICARE ==
[2020-01-20] MEDS ORDERED: AZITHROMYCIN 500 MG in SODIUM CHLORIDE 0.9% 250 ML IVPB STA (18:34)
[2020-01-20] MEDS ORDERED: methylPREDNISolone SOD SUCCI 125 MG/2 ML VIAL IV STA (18:34)
[2020-01-20] MEDS ORDERED: ALBUTEROL NEBULIZED 2.5 MG/3 ML INHALATION STA (18:34)
[2020-01-20] MEDS ORDERED: IPRATROPIUM 0.5 MG/2.5 ML NEBU INHALATION STA (18:34)
--- NOTE | 2020-01-20 18:37 | ED ---
General Adult HPI - General Stated complaint: SOB Time Seen by Provider: 01/20/20 18:33 Source: patient, EMS, RN notes reviewed, old records reviewed Limitations: no limitations - History of Present Illness Initial comments: 74-year-old male presenting for evaluation of increased cough and dyspnea. Nika ent has history of COPD, currently on 4 L of home oxygen. He is presenting with increased sputum production, harvey sputum, and worsening dyspnea. He denies fever. He denies central chest pain. He has a right-sided chest pain worse with cough. No abdominal pain nausea vomiting. No lower extremity pain or swelling. No known contact with coronavirus. - Related Data Home Medications Medication Instructions Recorded Confirmed Ergocalciferol [Vitamin D2 50,000 unit PO Q30D 08/17/18 01/20/20 (DRISDOL)] Tiotropium Sheldon [Spiriva] 1 cap INHALATION RT-DAILY 08/17/18 01/20/20 traMADol HCL [Ultram] 50 mg PO BID PRN 08/17/18 01/20/20 Fluticasone Propion/Salmeterol 1 puff PO RT-DAILY 05/23/19 01/20/20 [Wixela 500-50 Inhub] Albuterol Sulfate [Ventolin HFA] 2 puff INHALATION RT-Q6H PRN 01/20/20 01/20/20 Famotidine [Pepcid] 20 mg PO BID PRN 01/20/20 01/20/20 Multivitamins, Thera [Multivitamin 1 tab PO DAILY 01/20/20 01/20/20 (formulary)] Naproxen 500 mg PO BID 01/20/20 01/20/20 OLANZapine [ZyPREXA] 2.5 mg PO TID 01/20/20 01/20/20 Olopatadine HCl [Pataday] 1 drop BOTH EYES BID 01/20/20 01/20/20 Previous Rx's Medication Instructions Recorded FLUoxetine HCL [PROzac] 20 mg PO DAILY #30 cap 10/04/18 Docusate [Colace] 100 mg PO BID #60 cap 10/08/18 Allergies Allergy/AdvReac Type Severity Reaction Status Date / Time No Known Allergies Allergy Verified 01/20/20 20:48 Review of Systems ROS Statement: Those systems with pertinent positive or pertinent negative responses have been documented in the HPI. ROS Other: All systems not noted in ROS Statement are negative. Past Medical History Past Medical History: COPD, Hyperlipidemia Additional Past Medical History / Comment(s): Severe COPD, chronic hypoxic respiratory failure, previous history of pneumonia related to MRSA, history of solitary pulmonary nodule and a CAT scan of the chest that was done Gen. 2019 showed a 9 mm left upper lobe nodule without any significant change compared to the earlier CAT scan from 2018, history of thoracic aortic aneurysm measuring 4.2 cm, history of chronic hepatitis C viral infection History of Any Multi-Drug Resistant Organisms: MRSA Date of last positivie culture/infection: 08/27/18 MDRO Source:: BRONCH WASH Additional Past Surgical History / Comment(s): back fusion. hip surgery x 2 Past Anesthesia/Blood Transfusion Reactions: No Reported Reaction Past Psychological History: No Psychological Hx Reported - Past Family History Father Family Medical History: Myocardial Infarction ([place]) Mother Family Medical History: Myocardial Infarction ([place]) General Exam General appearance: alert, in no apparent distress, cachectic Head exam: Present: atraumatic, normocephalic Eye exam: Present: normal appearance, PERRL ENT exam: Present: normal exam Neck exam: Present: normal inspection. Absent: tenderness, meningismus Respiratory exam: Present: respiratory distress, wheezes, decreased breath sounds, prolonged expiratory Cardiovascular Exam: Present: regular rate, normal rhythm GI/Abdominal exam: Present: soft, distended, hernia. Absent: tenderness, guarding Extremities exam: Present: normal inspection, normal capillary refill. Absent: pedal edema, calf tenderness Back exam: Present: normal inspection Neurological exam: Present: alert, oriented X3 Psychiatric exam: Present: normal affect, normal mood Skin exam: Present: warm, dry, intact. Absent: cyanosis, diaphoretic Course Vital Signs 01/20/20 01/20/20 01/20/20 18:30 19:23 19:40 Temperature 100.6 F H Pulse Rate 103 H 98 102 H Pulse Rate [ Stapler Machine ] Respiratory 24 Rate Blood Pressure 124/77 O2 Sat by Pulse 83 L Oximetry 01/20/20 01/20/20 19:54 20:01 Temperature Pulse Rate 105 H Pulse Rate [ 105 H Stapler Machine ] Respiratory Rate Blood Pressure O2 Sat by Pulse Oximetry EKG Findings - EKG Comments: EKG Findings:: EKG: Sinus tachycardia, rate of 101, NJ interval 140, QRS duration 114, QTC 474, no ST segment elevation, baseline artifact secondary to tremor. Medical Decision Making - Medical Decision Making 74 -year-old male presenting with worsening cough and dyspnea, cough productive of harvey sputum. Patient is febrile. He has an elevated white blood cell count of 13. X-ray showing a right lower lobe pneumonia. Mild lactic acidosis of 2.3. He is Girard virus and influenza virus testing is negative. He started on antibiotics. He has been admitted to Dr. Grissom who is aware of the patient. Pulmonology is placed on consult. - Lab Data Result diagrams: 01/20/20 19:17 01/20/20 19:17 Lab Results 01/20/20 01/20/20 01/20/20 Range/Units 19:17 19:17 19:17 WBC 13.1 H (3.8-10.6) k/uL RBC 4.13 L (4.30-5.90) m/uL Hgb 12.9 L (13.0-17.5) gm/dL Hct 38.0 L (39.0-53.0) % MCV 91.9 (80.0-100.0) fL MCH 31.3 (25.0-35.0) pg MCHC 34.0 (31.0-37.0) g/dL RDW 12.4 (11.5-15.5) % Plt Count 224 (150-450) k/uL MPV 7.8 Neutrophils % 81 % Lymphocytes % 7 % Monocytes % 8 % Eosinophils % 2 % Basophils % 2 % Neutrophils # 10.6 H (1.3-7.7) k/uL Lymphocytes # 0.9 L (1.0-4.8) k/uL Monocytes # 1.1 H (0-1.0) k/uL Eosinophils # 0.2 (0-0.7) k/uL Basophils # 0.2 (0-0.2) k/uL PT 9.8 (9.0-12.0) sec INR 0.9 (<1.2) APTT 25.2 (22.0-30.0) sec Sodium 134 L (137-145) mmol/L Potassium 4.4 (3.5-5.1) mmol/L Chloride 93 L (98-107) mmol/L Carbon Dioxide 36 H (22-30) mmol/L Anion Gap 5 mmol/L BUN 20 (9-20) mg/dL Creatinine 0.89 (0.66-1.25) mg/dL Est GFR (CKD-EPI)AfAm >90 (>60 ml/min/1.73 sqM) Est GFR (CKD-EPI)NonAf 86 (>60 ml/min/1.73 sqM) Glucose 94 (74-99) mg/dL Plasma Lactic Acid Gabe (0.7-2.0) mmol/L Calcium 9.2 (8.4-10.2) mg/dL Magnesium 2.1 (1.6-2.3) mg/dL Total Bilirubin 0.9 (0.2-1.3) mg/dL AST 27 (17-59) U/L ALT 18 (4-49) U/L Alkaline Phosphatase 67 (38-126) U/L Total Protein 6.9 (6.3-8.2) g/dL Albumin 3.8 (3.5-5.0) g/dL Coronavirus (PCR) (Not Detectd) Influenza Type A RNA (Not Detectd) Influenza Type B (PCR) (Not Detectd) 01/20/20 01/20/20 01/20/20 Range/Units 19:17 19:24 19:24 WBC (3.8-10.6) k/uL RBC (4.30-5.90) m/uL Hgb (13.0-17.5) gm/dL Hct (39.0-53.0) % MCV (80.0-100.0) fL MCH (25.0-35.0) pg MCHC (31.0-37.0) g/dL RDW (11.5-15.5) % Plt Count (150-450) k/uL MPV Neutrophils % % Lymphocytes % % Monocytes % % Eosinophils % % Basophils % % Neutrophils # (1.3-7.7) k/uL Lymphocytes # (1.0-4.8) k/uL Monocytes # (0-1.0) k/uL Eosinophils # (0-0.7) k/uL Basophils # (0-0.2) k/uL PT (9.0-12.0) sec INR (<1.2) APTT (22.0-30.0) sec Sodium (137-145) mmol/L Potassium (3.5-5.1) mmol/L Chloride (98-107) mmol/L Carbon Dioxide (22-30) mmol/L Anion Gap mmol/L BUN (9-20) mg/dL Creatinine (0.66-1.25) mg/dL Est GFR (CKD-EPI)AfAm (>60 ml/min/1.73 sqM) Est GFR (CKD-EPI)NonAf (>60 ml/min/1.73 sqM) Glucose (74-99) mg/dL Plasma Lactic Acid Gabe 2.3 H* (0.7-2.0) mmol/L Calcium (8.4-10.2) mg/dL Magnesium (1.6-2.3) mg/dL Total Bilirubin (0.2-1.3) mg/dL AST (17-59) U/L ALT (4-49) U/L Alkaline Phosphatase (38-126) U/L Total Protein (6.3-8.2) g/dL Albumin (3.5-5.0) g/dL Coronavirus (PCR) Not Detected (Not Detectd) Influenza Type A RNA Not Detected (Not Detectd) Influenza Type B (PCR) Not Detected (Not Detectd) Disposition Clinical Impression: COPD exacerbation, Pneumonia Disposition: ADMITTED IP TO THIS [facility] Condition: Stable Is patient prescribed a controlled substance at d/c from ED?: No Referrals: Gerber Grissom MD [Primary Care Provider] - 1-2 days Decision to Admit Reason: Admit from EC Decision Date: 01/20/20 Decision Time: 21:24
[2020-01-20 19:30] LABS: Basophils # (A) 0.2 k/uL (0-0.2); Basophils % (A) 2 %; Eosinophils # (A) 0.2 k/uL (0-0.7); Eosinophils % (A) 2 %; HGB 12.9 gm/dL (13.0-17.5); Lymphocytes # (A) 0.9 k/uL (1.0-4.8); Lymphocytes % (A) 7 %; MCH 31.3 pg (25.0-35.0); MCV 91.9 fL (80.0-100.0); Mean Platelet Volume 7.8; Monocytes # (A) 1.1 k/uL (0-1.0); Monocytes % (A) 8 %; Neutrophils # (A) 10.6 k/uL (1.3-7.7); Neutrophils % (A) 81 %; Platelet Count 224 k/uL (150-450); RBC 4.13 m/uL (4.30-5.90); RDW 12.4 % (11.5-15.5); WBC 13.1 k/uL (3.8-10.6)
--- NOTE | 2020-01-20 19:31 | XR ---
EXAMINATION TYPE: XR chest 1V portable DATE OF EXAM: 01/20/2020 COMPARISON: 05/27/2019 HISTORY: Pneumonia difficulty breathing. TECHNIQUE: FINDINGS: There is extensive airspace infiltrate in the periphery of the right lung. The left lung is fairly clear. Heart size is normal. Mediastinum is normal. There is mild pulmonary hyperinflation. T here is mild pleural thickening on the right lateral chest wall. IMPRESSION: There is right side pneumonia that is increased compared to old exam. No heart failure. N ormal heart. There is probably COPD.
[2020-01-20 19:42] LABS: ALT 18 U/L (4-49); AST 27 U/L (17-59); African American GFR (CKD) >90 (>60 ml/min/1.73 sqM); Albumin 3.8 g/dL (3.5-5.0); Alkaline Phosphatase 67 U/L (38-126); Anion Gap 5 mmol/L; Blood Urea Nitrogen 20 mg/dL (9-20); Calcium 9.2 mg/dL (8.4-10.2); Carbon Dioxide 36 mmol/L (22-30); Chloride 93 mmol/L (98-107); Glucose 94 mg/dL (74-99); Magnesium 2.1 mg/dL (1.6-2.3); Non-African American GFR(CKD) 86 (>60 ml/min/1.73 sqM); Potassium 4.4 mmol/L (3.5-5.1); Sodium 134 mmol/L (137-145); Total Bilirubin 0.9 mg/dL (0.2-1.3); Total Protein 6.9 g/dL (6.3-8.2)
[2020-01-20 20:02] LABS: INR 0.9 (<1.2); Partial Thromboplastin Time 25.2 sec (22.0-30.0); Prothrombin Time 9.8 sec (9.0-12.0)
[2020-01-20] MEDS ORDERED: SODIUM CHLORIDE 0.9% 500 ML 500 ML IV ONE (20:04)
[2020-01-20] MEDS ORDERED: IPRATROPIUM-ALBUTEROL 3 ML NEB INHALATION PRN (21:20)
[2020-01-20] MEDS ORDERED: VANCOMYCIN IV PER PHARMACY 1 EACH MISC MISCELLANE PRN (21:22)
[2020-01-20] MEDS ORDERED: VANCOMYCIN 1,500 MG in SODIUM CHLORIDE 0.9% 250 ML IVPB STA (21:23)
[2020-01-20] MEDS: SODIUM CHLORIDE 0.9% 1,000 ML IV SCH (21:24)
[2020-01-21] MEDS: methylPREDNISolone SOD SUCCI 125 MG/2 ML VIAL IV SCH ×2 (00:33→05:52)
[2020-01-21] MEDS: IPRATROPIUM-ALBUTEROL 3 ML NEB INHALATION SCH ×4 (08:05→20:03)
[2020-01-21] MEDS: predniSONE 10 MG TAB PO SCH (08:46)
--- NOTE | 2020-01-21 09:38 | CONS ---
CONSULTATION PULMONARY/CRITICAL CARE CONSULTATION: DATE OF SERVICE: 01/21/2020 REASON FOR CONSULTATION: COPD exacerbation and pneumonia. This is a 74-year-old gentleman with a history of long-standing severe COPD. His FEV1 is 31% of predicted. He typically sees Dr. Murrieta for his COPD. The patient sees Dr. Grissom as a primary. He is on home oxygen for chronic hypoxemic respiratory failure between 3-4 L/minute. He comes into the emergency department complaining of increasing shortness of breath. He also had chest congestion, cough, and phlegm production. The phlegm has a yellow color to it. He is not coughing up any blood. He denies any chest pain or pressure. The patient clearly states that the pain in his chest is more right-sided, especially when he coughs. Denies any fever or chills. He apparently tested negative for COVID-19. Chest x-ray shows a consolidation in the right mid lung consistent with bacterial pneumonia, community-acquired. The patient has had known contact with COVID patients. MEDICATIONS: Reviewed. He is on vitamin D2, Spiriva, Ultram, Wixela Inhub, albuterol, Pepcid, multivitamins, naproxen, Zyprexa and Pataday eyedrops. He has also been on Colace and Prozac. ALLERGIES: Denied. MEDICAL PROBLEM LIST: Includes primarily severe COPD, as well as hyperlipidemia. Other medical issues include chronic hypoxemic respiratory failure, currently on home O2, a prior history of methicillin-resistant Staph aureus pneumonia, solitary pulmonary nodule, 9 mm, left upper lobe without change, thoracic aortic aneurysm, and chronic hepatitis C infection. SURGICAL HISTORY: Includes bronchoscopy, back fusion, hip surgery x2. SOCIAL HISTORY: Negative for current tobacco use. He was a heavy smoker in the past. Denies any alcohol use or illicit drug use. FAMILY HISTORY: Positive for a father with myocardial infarction and mother with myocardial infarction. REVIEW OF SYSTEMS: CONSTITUTIONAL: Negative. NEUROLOGIC: Negative. HEENT: Negative. CARDIOVASCULAR: Right-sided chest pain particularly with cough for deep breathing. PULMONARY: Shortness of breath, chest congestion, cough, phlegm production. GI; Negative. : Negative. RHEUMATOLOGIC: Negative. IMMUNOLOGIC: Negative. ENDOCRINOLOGIC: Negative. DERMATOLOGIC: Negative. Current vital signs are reviewed. Temperature 99.2, T-max is a 100.6, heart rate 81, respiratory rate 16, blood pressure 122/72 mean 88, 6 L saturation 97%, 5 L saturation 95%-96%. Appears in no acute distress. HEENT: Examination is grossly unremarkable. Nasal O2 in place. NECK: Supple, full range of motion. No adenopathy. Neck veins are flat. CARDIOVASCULAR: Examination reveals regular rhythm and rate. Heart rate 81 beats per minute. LUNGS: Reveal diffuse coarse expiratory rhonchi and wheezes. Breath sounds are diminished. Breath sounds equal bilaterally. They are diminished throughout, though. There is prolongation on forced maneuver. ABDOMEN: Soft, bowel sounds are heard. EXTREMITIES: Intact. There is no cyanosis, clubbing, or edema. SKIN: Without rash. NEUROLOGIC: Examination is nonfocal. LABS: Reviewed. White count 13.1, hemoglobin 12.9, hematocrit 38.0, platelet count 224,000. PT, INR, PTT normal, sodium 134, potassium 4.4, chloride 93, CO2 is 36, anion gap is 5. BUN and creatinine were 20 and 0.89. Lactic acid was 2.3. Repeat was 0.6. Rest of the CMP was normal. COVID testing was negative. Influenza testing was negative. Microbiology is negative. Chest x-ray shows a right-sided consolidation. It appears to involve the right upper lobe and right lower lobe. Medications are reviewed. The patient is currently on Pulmicort and formoterol twice a day. Will increase the Pulmicort to 1 mg. The patient is on Rocephin and Zithromax. The patient is on prednisone 30 mg a day. We DC'd the vancomycin. Placed the patient on DuoNeb. No additional recommendations are made. Will continue to follow. Prognosis is guarded. The patient does have horrible lung function. ASSESSMENT: 1. COPD exacerbation complicated by right-sided pneumonia. 2. History of severe COPD with an FEV1 that is 31% of predicted. 3. Chronic hypoxemic respiratory failure. 4. History of hyperlipidemia. 5. History of solitary pulmonary nodule. 6. Prior history of MRSA pneumonia. 7. Chronic hepatitis C. 8. Thoracic aortic aneurysm. PLAN: Please see my orders. We added prednisone. We changed to DuoNeb and Pulmicort and formoterol. The patient is on Zithromax and Rocephin for community-acquired pneumonia. Vancomycin was discontinued. Will continue to follow. Prognosis is guarded. MMODL / IJN: [id number] /
[2020-01-21] MEDS ORDERED: VANCOMYCIN 1,250 MG in SODIUM CHLORIDE 0.9% 250 ML IVPB SCH (11:00)
[2020-01-21] MEDS: BUDESONIDE 1 MG/2 ML NEBU INHALATION SCH ×2 (11:55→20:03)
[2020-01-21] MEDS ORDERED: IPRATROPIUM-ALBUTEROL 3 ML NEB INHALATION PRN (14:30)
[2020-01-21] MEDS: traMADol 50 MG TAB PO PRN (14:43)
[2020-01-21] MEDS: AZITHROMYCIN 500 MG TAB PO SCH (17:05)
[2020-01-21] MEDS: OLANZapine 2.5 MG TAB PO SCH ×2 (17:05→21:55)
[2020-01-21] MEDS: SODIUM CHLORIDE 0.9% 1,000 ML IV SCH ×2 (17:06→21:55)
[2020-01-21] MEDS ORDERED: ACETAMINOPHEN TAB 325 MG TAB PO PRN (17:26)
[2020-01-21] MEDS: NICOTINE 21MG/24HR PATCH TRANSDERM SCH (18:21)
--- NOTE | 2020-01-21 19:41 | HP ---
HISTORY AND PHYSICAL CHIEF COMPLAINT: Shortness of breath, pneumonitis. HISTORY OF PRESENT ILLNESS: This is another admission for this 74-year-old white male who has extensive COPD. He had several long hospitalizations last year due to COPD and a right pleural effusion. All of this gradually improved. He went to a [facility] for a while and then went home. He has been doing fairly well. He started to have development of a slight upper respiratory infection and became short of breath and weak. He came to the emergency room, where he was evaluated and admitted. COVID testing came back negative. REVIEW OF SYSTEMS: He has had no headaches, neurologic problems, chest pain, hemoptysis, sputum production, palpitations, abdominal pain, nausea, vomiting, hematemesis, melena, hematochezia, jaundice, hepatitis, etc. He has a past history of significant alcoholism. He has had no renal failure, dysuria, hematuria, incontinence, etc. 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 He has a past history of hepatitis C. MEDICATIONS: Medications included: 1. Updraft with albuterol. 2. Wixela inhalation 500/50. 3. Zyprexa 2.5 once a day. 4. Eyedrops for glaucoma. 5. Prozac 20 mg once a day. 6. Famotidine 20 mg once a day. 7. Tramadol 50 q.6 p.r.n. 8. Symbicort 160/4.5 two puffs twice a day. 9. Metoprolol 25 mg 1/2 twice a day. 10.Lasix. 11.Spiriva. He no longer smokes. PHYSICAL EXAMINATION: Blood pressure was 128/74 with a pulse of 83, respirations of 35. He is afebrile. In general he appeared to be slender and in no acute distress. Skin color was normal. Skin was warm and dry. He did have a patch of amyloidosis on the right anterior neck and jaw. Chest demonstrated poor breath sounds with scattered rales and occasional rhonchi. Cardiac exam demonstrated sinus rhythm and no murmurs or extra sounds. Abdomen was flat, soft and nontender. Extremities were normal. Neurologically he is intact. He is admitted to the hospital with the diagnoses: 1. Right lower lobe bronchopneumonia. 2. Chronic obstructive pulmonary disease. PLAN: 1. Bedrest. 2. IV fluids. 3. IV antibiotics. 4. Updrafts. 5. Pulmonology consult. MMLAITH / LISAN: [id number] /
--- NOTE | 2020-01-21 19:55 | PN ---
PROGRESS NOTE DATE OF SERVICE: 01/21/2020 CHIEF COMPLAINT: Pneumonitis and COPD. HISTORY OF PRESENT ILLNESS: This gentleman is fairly comfortable. His coronavirus swab came back negative. He has had no chest pain, hemoptysis, etc. He is not particularly short of breath. PHYSICAL EXAMINATION: Breath sounds are diminished throughout. There are scattered rales at the bases. Cardiac exam is normal. Abdomen is soft, nontender. IMPRESSION: 1. Right lower lobe pneumonitis. 2. Chronic obstructive pulmonary disease. PLAN: Continue with IV fluids, antibiotics and updrafts, and await pulmonology consult. MMODL / IJN: [id number] /
[2020-01-21] MEDS ORDERED: BUDESONIDE 0.5 MG/2 ML NEBU INHALATION SCH ×2 (20:00)
[2020-01-21] MEDS: FORMOTEROL FUMARATE 20 MCG/2 ML NEBU INHALATION SCH (20:03)
[2020-01-21] MEDS: KETOTIFEN 0.025% OPHTH DROPS 5 ML BTL BOTH EYES SCH (21:51)
[2020-01-21] MEDS: NAPROXEN 250 MG TAB PO SCH (21:54)
[2020-01-21] MEDS: DOCUSATE 100 MG CAP PO SCH (21:54)
[2020-01-22] MEDS: OLANZapine 2.5 MG TAB PO SCH ×3 (07:51→21:23)
[2020-01-22] MEDS: FLUoxetine HCL 20 MG CAP PO SCH (07:52)
[2020-01-22] MEDS: DOCUSATE 100 MG CAP PO SCH ×2 (07:52→21:22)
[2020-01-22] MEDS: NICOTINE 21MG/24HR PATCH TRANSDERM SCH (07:52)
[2020-01-22] MEDS: predniSONE 10 MG TAB PO SCH (07:52)
[2020-01-22] MEDS ORDERED: NON FORMULARY DRUG (Fluticasone Propion/Salmeterol [Wixela 500-50 Inhub] 1 EACH Blst.W.Dev PO SCH (08:00)
[2020-01-22] MEDS ORDERED: NON FORMULARY DRUG (Tiotropium Bromide [Spiriva] 18 MCG Cap.W.Dev) INHALATION SCH (08:00)
[2020-01-22] MEDS: KETOTIFEN 0.025% OPHTH DROPS 5 ML BTL BOTH EYES SCH ×2 (08:17→21:23)
[2020-01-22] MEDS: NAPROXEN 250 MG TAB PO SCH ×2 (08:18→21:23)
[2020-01-22] MEDS: FORMOTEROL FUMARATE 20 MCG/2 ML NEBU INHALATION SCH ×2 (08:57→21:24)
[2020-01-22] MEDS: BUDESONIDE 1 MG/2 ML NEBU INHALATION SCH ×2 (08:57→21:24)
[2020-01-22] MEDS: IPRATROPIUM-ALBUTEROL 3 ML NEB INHALATION SCH ×4 (08:57→21:24)
[2020-01-22] MEDS: SODIUM CHLORIDE 0.9% 1,000 ML IV SCH (13:09)
[2020-01-22 15:45] LABS: Basophils % (A) 0 %; Eosinophils % (A) 0 %; HCT 34.5 % (39.0-53.0); HGB 11.5 gm/dL (13.0-17.5); Lymphocytes # (A) 0.7 k/uL (1.0-4.8); Lymphocytes % (A) 6 %; MCH 30.4 pg (25.0-35.0); MCHC 33.2 g/dL (31.0-37.0); MCV 91.7 fL (80.0-100.0); Mean Platelet Volume 7.5; Monocytes # (A) 0.8 k/uL (0-1.0); Monocytes % (A) 6 %; Neutrophils # (A) 11.3 k/uL (1.3-7.7); Neutrophils % (A) 87 %; Platelet Count 267 k/uL (150-450); RBC 3.77 m/uL (4.30-5.90); RDW 12.4 % (11.5-15.5)
--- NOTE | 2020-01-22 16:56 | PN ---
PROGRESS NOTE PULMONARY/CRITICAL CARE PROGRESS NOTE: DATE OF SERVICE: 01/22/2020 This is a 74-year-old gentleman whom we saw in consultation yesterday. He was admitted to the hospital on January 19. He has a long-standing history of severe COPD. His FEV1 is 31% of predicted. He typically sees Dr. Murrieta for his COPD and sees Dr. Grissom as his primary. He uses home oxygen, between 2 and 4 L/minute, for his chronic hypoxemic respiratory failure. He came into the emergency department on January 19 complaining of shortness of breath, chest congestion, cough and phlegm production. The phlegm had a yellow color to it. His chest x-ray showed a consolidation in the right mid lung and right lower lobe area. He denied any fever. His testing for COVID-19 was negative. He was admitted with a diagnosis of community-acquired pneumonia. Currently he is feeling much better. Still on oxygen therapy. Not ready for discharge as yet. PHYSICAL EXAMINATION: VITAL SIGNS: Current vital signs include temperature 97.7, heart rate 82, respiratory rate 17, blood pressure 119/74, mean 89, and 5-liter saturation 94%. GENERAL APPEARANCE: He appears in no acute distress. HEENT: Examination is grossly unremarkable. NECK: Supple. Full range of motion. No adenopathy. Neck veins are flat. CARDIOVASCULAR: Examination reveals regular rhythm and rate. S1, S2 normal. No S3, S4 or murmur. Heart rate in the mid 70s. LUNGS: Lungs reveal diffuse coarse expiratory rhonchi. More adventitious lung sounds are heard in the right lung. The left lung is more clear but still has abnormalities as well. There are no crackles. ABDOMEN: Soft. Bowel sounds are heard. EXTREMITIES: Intact. No cyanosis, clubbing or edema. SKIN: Without rash. NEUROLOGIC: Neurologic examination is brief but nonfocal. LABS: Reviewed. Nothing new from today except a lactic acid of 0.6. COVID testing was negative. Microbiology is negative. No recent chest x-ray. Will get one in the morning. CURRENT MEDICATIONS: Reviewed. The patient is on Tylenol, Zithromax, Pulmicort, Rocephin, Colace, famotidine, Prozac, formoterol, DuoNeb, Zaditor eyedrops, Naprosyn, nicotine patch, Zyprexa, prednisone, 0.9 at 75 mL/hour and Tramadol. ASSESSMENT: 1. Chronic obstructive pulmonary disease exacerbation complicated by right-sided pneumonia. 2. History of severe chronic obstructive pulmonary disease with FEV1 that is 31% of predicted. 3. Chronic hypoxemic respiratory failure, requiring home oxygen at 3 to 4 liters/minute. 4. History of hyperlipidemia. 5. Solitary pulmonary nodule. 6. Prior history of methicillin-resistant Staphylococcus aeruginosa pneumonia. 7. Chronic hepatitis C. 8. History of thoracic aortic aneurysm. PLAN: Currently the patient is doing well. Will continue to follow. Clinically he is feeling much better today. He is on Zithromax and Rocephin. He is getting prednisone, short-acting beta agonist, short-acting muscarinic antagonist, long-acting beta agonist, inhaled corticosteroids, and all the other appropriate medications to get the patient well. Will continue to follow. Chest x-ray in the morning. MMODL / IJN: [id number] /
[2020-01-22] MEDS: AZITHROMYCIN 500 MG TAB PO SCH (17:42)
--- NOTE | 2020-01-22 19:17 | XR ---
EXAMINATION TYPE: XR chest 2V DATE OF EXAM: 01/22/2020 COMPARISON: January 20, 2020 HISTORY: Short of breath TECHNIQUE: 2 views FINDINGS: There is some patchy airspace and interstitial infiltrate in the right midlung. There is so me pleural thickening on the right lateral chest wall. There is pulmonary hyperinflation and mild fla ttening of the diaphragm. There is coarse interstitial density in both lungs. There is no pleural eff usion. Heart size is normal. There is no heart failure. Thoracic aorta is atheromatous. IMPRESSION: There is some chronic pneumonia in the right midlung with pleural thickening at is improv ed compared to recent exam. Normal heart. There is underlying COPD.
[2020-01-23 01:33] LABS: African American GFR (CKD) 98.5 (60.0-200.0); Albumin 3.7 g/dL (3.80-4.90); Albumin/Globulin Ratio 2.18 (1.60-3.17); Anion Gap 4.7 mmol/L (4.00-12.00); BUN/Creat Ratio 28.89 Ratio (12.00-20.00); Carbon Dioxide 32.3 mmol/L (21.6-31.8); Globulin 1.7 g/dL (1.6-3.3); Potassium 4.4 mmol/L (3.5-5.5); Total Bilirubin 0.2 mg/dL (0.3-1.2); Total Protein 5.4 g/dL (6.2-8.2)
[2020-01-23] MEDS: SODIUM CHLORIDE 0.9% 1,000 ML IV SCH ×2 (04:03→18:05)
--- NOTE | 2020-01-23 07:40 | XR ---
EXAMINATION TYPE: XR chest 2V DATE OF EXAM: 01/23/2020 COMPARISON: 01/22/2020 HISTORY: 74-year-old male pneumonia TECHNIQUE: PA and lateral views FINDINGS: Heart normal size. Aorta within normal limits. Hyperinflation. Patchy infiltrate in the right upper l obe similar. Trace right pleural effusion remains. IMPRESSION: COPD with similar patchy right upper lobe infiltrate and trace right effusion.
[2020-01-23] MEDS: DOCUSATE 100 MG CAP PO SCH ×2 (10:46→21:01)
[2020-01-23] MEDS: predniSONE 10 MG TAB PO SCH (10:46)
[2020-01-23] MEDS: FLUoxetine HCL 20 MG CAP PO SCH (10:47)
[2020-01-23] MEDS: NICOTINE 21MG/24HR PATCH TRANSDERM SCH (10:47)
[2020-01-23] MEDS: OLANZapine 2.5 MG TAB PO SCH ×3 (10:48→21:00)
[2020-01-23] MEDS: NAPROXEN 250 MG TAB PO SCH ×2 (10:48→21:00)
[2020-01-23] MEDS: BUDESONIDE 1 MG/2 ML NEBU INHALATION SCH ×2 (12:00→20:20)
[2020-01-23] MEDS: FORMOTEROL FUMARATE 20 MCG/2 ML NEBU INHALATION SCH ×2 (12:00→20:20)
[2020-01-23] MEDS: IPRATROPIUM-ALBUTEROL 3 ML NEB INHALATION SCH ×4 (12:00→20:20)
--- NOTE | 2020-01-23 15:06 | P.PN ---
Subjective Progress Note Date: 01/23/20 Principal diagnosis: Acute exacerbation of chronic obstructive pulmonary disease complicated by a right-sided community-acquired pneumonia The patient is seen today 01/23/2020 and follow-up on the regular medical floor. He was admitted with a COPD exacerbation, complicated by right-sided community- acquired pneumonia. He has severe COPD with an FEV1 value 31% of predicted. He is chronically on home oxygen at 3-4 L/m. Chronic tobacco dependence. He also has a history of solitary pulmonary nodule, hyperlipidemia, chronic hepatitis C, thoracic aortic aneurysm and previous MRSA pneumonias. Presently he is doing better he is awake and alert in no acute distress maintain O2 saturations in the low 90s on 5 L/m per nasal cannula. He's been afebrile. Blood culture reveals no growth to date: 19 screen was negative. He remains on DuoNeb inhalations, Pulmicort and Perforomist inhalations, prednisone. Antibiotics in the form of ceftriaxone and azithromycin. Objective - Vital Signs Vital signs: Vital Signs Temp 97.8 F 01/23/20 07:00 Pulse 83 01/23/20 12:12 Resp 17 01/23/20 07:00 BP 148/80 01/23/20 07:00 Pulse Ox 95 01/23/20 10:45 Intake & Output 01/22/20 01/23/20 01/23/20 18:59 06:59 18:59 Output Total 1000 1000 Balance -1000 -1000 Output: Urine 1000 1000 Other: Voiding Method Urinal Urinal Toilet - Exam GENERAL EXAM: Alert, pleasant 74-year-old gentleman, on 5 L nasal cannula, comfortable in no apparent distress. HEAD: Normocephalic. EYES: Normal reaction of pupils, equal size. NOSE: Clear with pink turbinates. THROAT: No erythema or exudates. NECK: No masses, no JVD. CHEST: No chest wall deformity. LUNGS: Equal air entry with end expiratory wheeze, crackles in the right base CVS: S1 and S2 normal with no audible murmur, regular rhythm. ABDOMEN: No hepatosplenomegaly, normal bowel sounds, no guarding or rigidity. SPINE: No scoliosis or deformity SKIN: No rashes CENTRAL NERVOUS SYSTEM: No focal deficits, tone is normal in all 4 extremities. EXTREMITIES: There is no peripheral edema. No clubbing, no cyanosis. Peripheral pulses are intact. - Labs CBC & Chem 7: 01/22/20 15:25 12 15:25 Labs: Abnormal Lab Results - Last 24 Hours (Table) 01/22/20 01/22/20 Range/Units 15:25 15:25 WBC 13.0 H (3.8-10.6) k/uL RBC 3.77 L (4.30-5.90) m/uL Hgb 11.5 L (13.0-17.5) gm/dL Hct 34.5 L (39.0-53.0) % Neutrophils # 11.3 H (1.3-7.7) k/uL Lymphocytes # 0.7 L (1.0-4.8) k/uL Carbon Dioxide 32.3 H (21.6-31.8) mmol/L BUN/Creatinine Ratio 28.89 H (12.00-20.00) Ratio Glucose 136 H (70-110) mg/dL Total Bilirubin 0.2 L (0.3-1.2) mg/dL Total Protein 5.4 L (6.2-8.2) g/dL Albumin 3.70 L (3.80-4.90) g/dL Microbiology - Last 24 Hours (Table) 01/20/20 19:17 Blood Culture - Preliminary Blood No Growth after 48 hours Assessment and Plan Assessment: 1 Acute exacerbation of chronic obstructive pulmonary disease complicated by community-acquired right lung pneumonia 2 Acute on chronic hypoxemic respiratory failure secondary to above 3 Chronic hypoxic respiratory failure secondary to severe COPD with FEV1 value 31% of predicted, chronically on home oxygen at 4 L/m per nasal cannula 4 Chronic tobacco dependence 5 Hyperlipidemia 6 History of solitary pulmonary nodule 7 History of MRSA pneumonia as 8 Chronic hepatitis C 9 History of thoracic aortic aneurysm Plan: The patient was seen and evaluated by Dr. Sherman Chest x-ray reviewed Continue antibiotics Continue bronchodilators, prednisone Titrate down the FiO2 as tolerated We will continue to follow I, the cosigning physician, performed a history & physical examination of the patient. Lungs sounds with end expiratory wheeze, crackles in the right base. Maintaining good O2 saturations in the 90s on 5 L/m per nasal cannula. I discussed the assessment and plan of care with my nurse practitioner, Joi Bustamante. I attest to the above note as dictated by her.
[2020-01-23] MEDS: KETOTIFEN 0.025% OPHTH DROPS 5 ML BTL BOTH EYES SCH ×2 (18:04→21:01)
[2020-01-23] MEDS: AZITHROMYCIN 500 MG TAB PO SCH (18:05)
--- NOTE | 2020-01-23 18:20 | PN ---
PROGRESS NOTE DATE OF SERVICE: 01/22/2020 CHIEF COMPLAINT: Right lower lobe pneumonitis and COPD. HISTORY OF PRESENT ILLNESS: This gentleman seems to be doing fairly well. He seems stable. Breathing seems a little better. He has had no fever, chills, etc. PHYSICAL EXAMINATION: Breath sounds are diminished throughout. There are rales and rhonchi at the right base. Cardiac exam is normal. Abdomen is soft, nontender. IMPRESSION: 1. Right lower lobe pneumonitis. 2. Chronic obstructive pulmonary disease. PLAN: Continue with current program. He is slowly improving. MMODL / IJN: [id number] /
--- NOTE | 2020-01-23 18:26 | PN ---
PROGRESS NOTE DATE OF SERVICE: 01/23/2020 CHIEF COMPLAINT: Right lower lobe pneumonitis and COPD. HISTORY OF PRESENT ILLNESS: This gentleman is improving. He has less shortness of breath and he has no chest pain or fever. PHYSICAL EXAMINATION: Breath sounds seem to be somewhat improved at the right base. His cardiac exam is normal. Abdomen is soft, nontender. IMPRESSION: 1. Right lower lobe pneumonitis. 2. Chronic obstructive pulmonary disease. PLAN: Continue with IV fluids, updrafts and antibiotics and he can probably go home in the next day or 2. MMODL / IJN: [id number] /
[2020-01-23] MEDS: traMADol 50 MG TAB PO PRN (21:05)
[2020-01-24] MEDS: SODIUM CHLORIDE 0.9% 1,000 ML IV SCH ×3 (05:57→21:33)
[2020-01-24] MEDS: predniSONE 10 MG TAB PO SCH (08:12)
[2020-01-24] MEDS: KETOTIFEN 0.025% OPHTH DROPS 5 ML BTL BOTH EYES SCH ×2 (08:12→21:03)
[2020-01-24] MEDS: NAPROXEN 250 MG TAB PO SCH ×2 (08:12→21:03)
[2020-01-24] MEDS: DOCUSATE 100 MG CAP PO SCH ×2 (08:12→21:03)
[2020-01-24] MEDS: FLUoxetine HCL 20 MG CAP PO SCH (08:12)
[2020-01-24] MEDS: NICOTINE 21MG/24HR PATCH TRANSDERM SCH (08:12)
[2020-01-24] MEDS: OLANZapine 2.5 MG TAB PO SCH ×3 (08:13→21:03)
[2020-01-24] MEDS: BUDESONIDE 1 MG/2 ML NEBU INHALATION SCH ×2 (08:39→20:13)
[2020-01-24] MEDS: IPRATROPIUM-ALBUTEROL 3 ML NEB INHALATION SCH ×4 (08:39→20:13)
[2020-01-24] MEDS: FORMOTEROL FUMARATE 20 MCG/2 ML NEBU INHALATION SCH ×2 (08:39→20:13)
--- NOTE | 2020-01-24 15:24 | P.PN ---
Subjective Progress Note Date: 01/24/20 Principal diagnosis: Acute exacerbation of chronic obstructive pulmonary disease complicated by a right-sided community-acquired pneumonia The patient is seen today 01/23/2020 and follow-up on the regular medical floor. He was admitted with a COPD exacerbation, complicated by right-sided community- acquired pneumonia. He has severe COPD with an FEV1 value 31% of predicted. He is chronically on home oxygen at 3-4 L/m. Chronic tobacco dependence. He also has a history of solitary pulmonary nodule, hyperlipidemia, chronic hepatitis C, thoracic aortic aneurysm and previous MRSA pneumonias. Presently he is doing better he is awake and alert in no acute distress maintain O2 saturations in the low 90s on 5 L/m per nasal cannula. He's been afebrile. Blood culture reveals no growth to date: 19 screen was negative. He remains on DuoNeb inhalations, Pulmicort and Perforomist inhalations, prednisone. Antibiotics in the form of ceftriaxone and azithromycin. Patient is seen today 01/24/2020 in follow-up on the regular medical floor. He is currently resting comfortably in bed. Awake and alert in no acute distress. Maintaining O2 saturations in the mid 90s on 2 L/m per nasal cannula. He's been afebrile. We'll culture reveals no growth. He remains on DuoNeb inhalations, Pulmicort and Perforomist inhalations, prednisone. Antibiotics in the form of ceftriaxone and azithromycin. Objective - Vital Signs Vital signs: Vital Signs Temp 97.8 F 01/24/20 07:22 Pulse 77 01/24/20 12:00 Resp 16 01/24/20 07:22 BP 146/77 01/24/20 07:22 Pulse Ox 96 01/24/20 07:22 Intake & Output 01/23/20 01/24/20 01/24/20 18:59 06:59 18:59 Output Total 850 Balance -850 Output: Urine 850 Other: Voiding Method Toilet Toilet Toilet # Voids 400 2 # Bowel Movements 1 1 - Exam GENERAL EXAM: Alert, pleasant 74-year-old gentleman, on 3 L nasal cannula, comfortable in no apparent distress. HEAD: Normocephalic. EYES: Normal reaction of pupils, equal size. NOSE: Clear with pink turbinates. THROAT: No erythema or exudates. NECK: No masses, no JVD. CHEST: No chest wall deformity. LUNGS: Equal air entry with end expiratory wheeze, crackles in the right base CVS: S1 and S2 normal with no audible murmur, regular rhythm. ABDOMEN: No hepatosplenomegaly, normal bowel sounds, no guarding or rigidity. SPINE: No scoliosis or deformity SKIN: No rashes CENTRAL NERVOUS SYSTEM: No focal deficits, tone is normal in all 4 extremities. EXTREMITIES: There is no peripheral edema. No clubbing, no cyanosis. Peripheral pulses are intact. - Labs CBC & Chem 7: 01/22/20 15:25 01/22/20 15:25 Labs: Microbiology - Last 24 Hours (Table) 01/20/20 19:17 Blood Culture - Preliminary Blood No Growth after 72 hours Assessment and Plan Assessment: 1 Acute exacerbation of chronic obstructive pulmonary disease complicated by community-acquired right lung pneumonia 2 Acute on chronic hypoxemic respiratory failure secondary to above 3 Chronic hypoxic respiratory failure secondary to severe COPD with FEV1 value 31% of predicted, chronically on home oxygen at 4 L/m per nasal cannula 4 Chronic tobacco dependence 5 Hyperlipidemia 6 History of solitary pulmonary nodule 7 History of MRSA pneumonia as 8 Chronic hepatitis C 9 History of thoracic aortic aneurysm Plan: The patient was seen and evaluated by Dr. Sherman Continue antibiotics Continue bronchodilators, prednisone Titrate down the FiO2 as tolerated Follow-up chest x-ray in the a.m. Probable discharge in the a.m. We will continue to follow I, the cosigning physician, performed a history & physical examination of the patient. Lungs sounds with end expiratory wheeze, crackles in the right base. Maintaining good O2 saturations in the 90s on 3 L/m per nasal cannula. I discussed the assessment and plan of care with my nurse practitioner, Joi Bustamante. I attest to the above note as dictated by her.
[2020-01-24] MEDS: AZITHROMYCIN 500 MG TAB PO SCH (17:47)
[2020-01-24] MEDS: FAMOTIDINE 20 MG TAB PO PRN (17:50)
--- NOTE | 2020-01-24 18:09 | PN ---
PROGRESS NOTE DATE OF SERVICE: 01/24/2020 CHIEF COMPLAINT: Pneumonitis. HISTORY OF PRESENT ILLNESS: This gentleman is feeling a little bit better each day. He is breathing a little bit more easily. He has had no fever or chills. He is on oxygen steadily, but he is at home too. PHYSICAL EXAMINATION: Breath sounds are diminished throughout with rales at both bases and particularly on the right. Cardiac exam is normal. Abdomen is soft, nontender. He seems comfortable. He is well hydrated and he is eating well. IMPRESSION: 1. Right lower lobe pneumonitis. 2. Chronic obstructive pulmonary disease. PLAN: Probably home tomorrow. MMODL / IJN: [id number] /
[2020-01-24] MEDS: traMADol 50 MG TAB PO PRN (21:03)
[2020-01-25] MEDS: KETOTIFEN 0.025% OPHTH DROPS 5 ML BTL BOTH EYES SCH (07:42)
[2020-01-25] MEDS: NICOTINE 21MG/24HR PATCH TRANSDERM SCH (07:42)
[2020-01-25] MEDS: predniSONE 10 MG TAB PO SCH (07:43)
[2020-01-25] MEDS: DOCUSATE 100 MG CAP PO SCH (07:43)
[2020-01-25] MEDS: FAMOTIDINE 20 MG TAB PO PRN (07:43)
[2020-01-25] MEDS: FLUoxetine HCL 20 MG CAP PO SCH (07:43)
[2020-01-25] MEDS: NAPROXEN 250 MG TAB PO SCH (07:44)
[2020-01-25] MEDS: OLANZapine 2.5 MG TAB PO SCH (07:44)
[2020-01-25 08:11] VITALS: BP 134/79; RESP 16; TEMP 97.7
[2020-01-25] MEDS: BUDESONIDE 1 MG/2 ML NEBU INHALATION SCH (08:16)
[2020-01-25] MEDS: FORMOTEROL FUMARATE 20 MCG/2 ML NEBU INHALATION SCH (08:16)
[2020-01-25] MEDS: IPRATROPIUM-ALBUTEROL 3 ML NEB INHALATION SCH ×2 (08:16→11:19)
--- NOTE | 2020-01-25 08:24 | XR ---
EXAMINATION TYPE: XR chest 2V DATE OF EXAM: 01/25/2020 COMPARISON: 01/23/2020 HISTORY: 74-year-old male follow-up pneumonia TECHNIQUE: PA and lateral views FINDINGS: Heart normal size. Mild atherosclerotic arch calcifications. Aorta and prominent vasculature within n ormal limits. Hyperinflation with flattening of the hemidiaphragms. Trace right effusion persists. Pa tchy airspace disease within the right upper lobe persists with minimal improvement. IMPRESSION: COPD with trace right effusion and right upper lobe airspace disease showing slight improvement.
[2020-01-25 11:30] VITALS: PULSE 92
--- NOTE | 2020-01-25 11:59 | P.PN ---
Subjective Progress Note Date: 01/25/20 On 01/25/2020, the patient is doing well. No specific complaints on 2 L of oxygen by nasal cannula. No chest pain. No shortness of breath. He has severe COPD with an FEV1 of 31% of predicted and he feels that his breathing is back to his baseline and is chronically on oxygen at 3 L per minute. The patient also has history of chronic hepatitis C, thoracic aortic aneurysm, hyperlipidemia previous history of MRSA infection. His coronavirus: 19 screening came back negative. The white cell count is 13. Lactic acid level is normalized. Normal renal function. Repeat chest x-ray shows COPD with trace right-sided pleural effusion and the right upper lobe airspace showing slight improvement Objective - Vital Signs Vital signs: Vital Signs Temp 97.7 F 01/25/20 07:00 Pulse 92 01/25/20 11:30 Resp 16 01/25/20 07:00 BP 134/79 01/25/20 07:00 Pulse Ox 92 L 01/25/20 07:00 Intake & Output 01/24/20 01/25/20 01/25/20 18:59 06:59 18:59 Output Total 600 Balance -600 Output: Urine 600 Other: Voiding Method Toilet Toilet Toilet # Voids 1 4 # Bowel Movements 1 - Exam GENERAL EXAM: Alert, pleasant 74-year-old gentleman, on 3 L nasal cannula, comfortable in no apparent distress. HEAD: Normocephalic. EYES: Normal reaction of pupils, equal size. NOSE: Clear with pink turbinates. THROAT: No erythema or exudates. NECK: No masses, no JVD. CHEST: No chest wall deformity. LUNGS: Equal air entry with end expiratory wheeze, crackles in the right base CVS: S1 and S2 normal with no audible murmur, regular rhythm. ABDOMEN: No hepatosplenomegaly, normal bowel sounds, no guarding or rigidity. SPINE: No scoliosis or deformity SKIN: No rashes CENTRAL NERVOUS SYSTEM: No focal deficits, tone is normal in all 4 extremities. EXTREMITIES: There is no peripheral edema. No clubbing, no cyanosis. Peripheral pulses are intact. - Labs CBC & Chem 7: 01/22/20 15:25 01/22/20 15:25 Labs: Microbiology - Last 24 Hours (Table) 01/20/20 19:17 Blood Culture - Preliminary Blood No Growth after 96 hours Assessment and Plan Plan: 1 Acute exacerbation of chronic obstructive pulmonary disease complicated by community-acquired right lung pneumonia 2 Acute on chronic hypoxemic respiratory failure secondary to above 3 Chronic hypoxic respiratory failure secondary to severe COPD with FEV1 value 31% of predicted, chronically on home oxygen at 4 L/m per nasal cannula 4 Chronic tobacco dependence 5 Hyperlipidemia 6 History of solitary pulmonary nodule 7 History of MRSA pneumonia as 8 Chronic hepatitis C 9 History of thoracic aortic aneurysm Plan: Continue antibiotics, the patient can be discharged home on a course of Levaquin regarding the right upper lobe pneumonia. Continue bronchodilators, prednisone Titrate down the FiO2 as tolerated Follow-up chest x-ray in the a.m.showed improvement in the right upper lobe consolidation supporting starting this patient home today We will continue to follow on outpatient basis on Wixela add Spiriva and albuterol and oxygen therapy.
[2020-01-25] MEDS ORDERED: CEPHALEXIN 500 MG CAP PO SCH (13:00)
[2020-01-26] MEDS ORDERED: methylPREDNISolone 4 MG TAB TAPER PO SCH (09:00)
--- NOTE | 2020-01-26 19:04 | DS ---
DISCHARGE SUMMARY DATE OF SERVICE: 01/25/2020 CHIEF COMPLAINT: Cough, shortness of breath and right lower lobe pneumonia. HISTORY OF PRESENT ILLNESS AND PHYSICAL EXAMINATION: Details of this man's history and physical can be found in the initial workup. LABORATORY STUDIES: While he was in the hospital he had laboratory studies, details of which can be found in the laboratory section of his chart. COURSE IN THE HOSPITAL: After admission he was placed on bedrest, started on intravenous fluids, updrafts and IV antibiotics. His SARs-COV2 swab was negative. He was followed by Pulmonology. His chest improved, his shortness of breath became less, and it was felt that he could go home on January 24. He will go home on his usual activity, diet and medication and be followed up in several days. FINAL DIAGNOSES: 1. Right lower lobe pneumonitis. 2. Chronic obstructive pulmonary disease. 3. Amyloidosis. OPERATIONS: None. CONSULTATION: Pulmonology. He is improved. MMLUISL / LISAN: [id number] /
== END 2020-01-25 14:18 | disposition home or self-care (01) | DRG 193 ==
LOC: EC 18:29 → 4SSUR 21:20
PROVIDERS: ADMIT Family Medicine; ATTEND Family Medicine
DX: J15.9 Unspecified bacterial pneumonia (principal); J96.21 Acute and chronic respiratory failure with hypoxia; J44.1 Chronic obstructive pulmonary disease with (acute) exacerbation; R64 Cachexia; E87.2 Acidosis; E85.4 Organ-limited amyloidosis; J44.0 Chronic obstructive pulmonary disease with (acute) lower respiratory infection; I71.2 Thoracic aortic aneurysm, without rupture; Z20.828 Contact with and (suspected) exposure to other viral communicable diseases; B18.2 Chronic viral hepatitis C; E78.5 Hyperlipidemia, unspecified; L99 Other disorders of skin and subcutaneous tissue in diseases classified elsewhere; R91.1 Solitary pulmonary nodule; F17.200 Nicotine dependence, unspecified, uncomplicated; Z68.22 Body mass index [BMI] 22.0-22.9, adult; Z79.899 Other long term (current) drug therapy; Z87.01 Personal history of pneumonia (recurrent); Z86.14 Personal history of Methicillin resistant Staphylococcus aureus infection; Z98.1 Arthrodesis status; Z99.81 Dependence on supplemental oxygen; Z98.890 Other specified postprocedural states; Z82.49 Family history of ischemic heart disease and other diseases of the circulatory system
CPT/HCPCS: 36415; 71045; 71046; 80053; 83605; 83735; 85025; 85610; 85730; 87040; 87502; 87635; 93005; 94640; 96365; 96366; 96367; 96375; 96376; 99285

== ENCOUNTER 2020-04-11 08:22 | Inpatient (IN) | payer MEDICARE ==
[2020-04-11] MEDS ORDERED: SODIUM CHLORIDE 0.9% 1,000 ML IV STA (08:29)
[2020-04-11] MEDS ORDERED: methylPREDNISolone SOD SUCCI 125 MG/2 ML VIAL IV STA (08:29)
[2020-04-11] MEDS ORDERED: IPRATROPIUM 0.5 MG/2.5 ML NEBU INHALATION STA (08:29)
--- NOTE | 2020-04-11 08:37 | ED ---
SOB HPI - General Chief Complaint: Shortness of Breath Stated Complaint: DIF Time Seen by Provider: 04/11/20 08:22 Source: patient, EMS, RN notes reviewed Mode of arrival: EMS Limitations: no limitations - History of Present Illness Initial Comments: This is a 74-year-old male history of COPD who started having difficulty breathing was getting worse over last several days a cough of yellow-green phlegm fevers chills or sweats he does have some left-sided chest pain he was brought in by EMS this morning after the dyspnea got worse. He also was dehyd rated he's not been eating as well recently. Patient did receive a 500 mL bolus of fluid by paramedics. MD Complaint: shortness of breath, cough - Related Data Home Medications Medication Instructions Recorded Confirmed Ergocalciferol [Vitamin D2 50,000 unit PO Q30D 08/17/18 04/11/20 (DRISDOL)] Tiotropium [place] [Spiriva] 1 cap INHALATION RT-DAILY 08/17/18 04/11/20 traMADol HCL [Ultram] 50 mg PO BID PRN 08/17/18 04/11/20 Fluticasone Propion/Salmeterol 1 puff INHALATION RT-DAILY 05/23/19 04/11/20 [Wixela 500-50 Inhub] Albuterol Sulfate [Ventolin HFA] 2 puff INHALATION RT-Q6H PRN 01/20/20 04/11/20 Famotidine [Pepcid] 20 mg PO BID PRN 01/20/20 04/11/20 Multivitamins, Thera [Multivitamin 1 tab PO DAILY 01/20/20 04/11/20 (formulary)] Naproxen 500 mg PO BID 01/20/20 04/11/20 OLANZapine [ZyPREXA] 2.5 mg PO TID 01/20/20 04/11/20 Olopatadine HCl [Pataday] 1 drop BOTH EYES BID 01/20/20 04/11/20 Previous Rx's Medication Instructions Recorded FLUoxetine HCL [PROzac] 20 mg PO DAILY #30 cap 10/04/18 Docusate [Colace] 100 mg PO BID #60 cap 10/08/18 Allergies Allergy/AdvReac Type Severity Reaction Status Date / Time No Known Allergies Allergy Verified 04/11/20 09:02 Review of Systems ROS Statement: Those systems with pertinent positive or pertinent negative responses have been documented in the HPI. ROS Other: All systems not noted in ROS Statement are negative. Past Medical History Past Medical History: COPD, Hyperlipidemia Additional Past Medical History / Comment(s): Severe COPD, chronic hypoxic respiratory failure, previous history of pneumonia related to MRSA, history of solitary pulmonary nodule and a CAT scan of the chest that was done Gen. 2019 showed a 9 mm left upper lobe nodule without any significant change compared to the earlier CAT scan from 2018, history of thoracic aortic aneurysm measuring 4.2 cm, history of chronic hepatitis C viral infection History of Any Multi-Drug Resistant Organisms: MRSA Date of last positivie culture/infection: 08/27/18 MDRO Source:: BRONCH WASH Additional Past Surgical History / Comment(s): back fusion. hip surgery x 2 Past Anesthesia/Blood Transfusion Reactions: No Reported Reaction Past Psychological History: No Psychological Hx Reported Smoking Status: Current every day smoker Past Alcohol Use History: None Reported Past Drug Use History: None Reported - Past Family History Father Family Medical History: Myocardial Infarction ([place]) Mother Family Medical History: Myocardial Infarction (HI) General Exam - General Exam Comments Initial Comments: This is a well-developed sec appearing male was awake alert oriented 3 Limitations: no limitations General appearance: alert, lethargic Head exam: Present: atraumatic, normocephalic, normal inspection Eye exam: Present: normal appearance, PERRL, EOMI. Absent: scleral icterus, conjunctival injection, periorbital swelling ENT exam: Present: mucous membranes dry Neck exam: Present: normal inspection, full ROM, other (ALLERGY or bruits). Absent: tenderness, meningismus, lymphadenopathy Respiratory exam: Present: wheezes, chest wall tenderness, accessory muscle use, decreased breath sounds. Absent: respiratory distress, rales, rhonchi, stridor Cardiovascular Exam: Present: normal rhythm, tachycardia, normal heart sounds. Absent: systolic murmur, diastolic murmur, rubs, gallop, clicks GI/Abdominal exam: Present: soft, normal bowel sounds. Absent: distended, tenderness, guarding, rebound, rigid Extremities exam: Present: normal inspection, full ROM, normal capillary refill. Absent: tenderness, pedal edema, joint swelling, calf tenderness Back exam: Present: normal inspection Neurological exam: Present: alert, oriented X3, CN II-XII intact Psychiatric exam: Present: normal affect, normal mood Skin exam: Present: warm, dry, intact, normal color. Absent: rash Course Vital Signs 04/11/20 04/11/20 04/11/20 08:23 08:30 09:33 Temperature 99.1 F Pulse Rate 104 H 100 Respiratory 18 18 Rate Blood Pressure 137/80 O2 Sat by Pulse 96 Oximetry 04/11/20 09:38 Temperature Pulse Rate 99 Respiratory Rate Blood Pressure O2 Sat by Pulse Oximetry - Reevaluation(s) Reevaluation #1: 04/11/20 11:33 Patient did get improvement after the initial treatment rendered. Medical Decision Making - Medical Decision Making I did discuss the findings with the patient and with Dr. Grissom concern for recurrent pneumonia as well as dehydration and rhabdomyolysis patient will be admitted with consultation by pulmonary medicine - Lab Data Result diagrams: 04/11/20 08:38 04/11/20 09:15 Lab Results 04/11/20 04/11/20 04/11/20 Range/Units 08:38 08:38 09:15 WBC 12.0 H (3.8-10.6) k/uL RBC 4.07 L (4.30-5.90) m/uL Hgb 12.4 L (13.0-17.5) gm/dL Hct 37.0 L (39.0-53.0) % MCV 90.8 (80.0-100.0) fL MCH 30.4 (25.0-35.0) pg MCHC 33.5 (31.0-37.0) g/dL RDW 13.6 (11.5-15.5) % Plt Count 190 (150-450) k/uL MPV 9.8 Neutrophils % 85 % Lymphocytes % 5 % Monocytes % 6 % Eosinophils % 3 % Basophils % 1 % Neutrophils # 10.2 H (1.3-7.7) k/uL Lymphocytes # 0.6 L (1.0-4.8) k/uL Monocytes # 0.7 (0-1.0) k/uL Eosinophils # 0.3 (0-0.7) k/uL Basophils # 0.1 (0-0.2) k/uL PT 10.6 (9.0-12.0) sec INR 1.0 (<1.2) APTT 23.3 (22.0-30.0) sec Sodium (137-145) mmol/L Potassium (3.5-5.1) mmol/L Chloride (98-107) mmol/L Carbon Dioxide (22-30) mmol/L Anion Gap mmol/L BUN (9-20) mg/dL Creatinine (0.66-1.25) mg/dL Est GFR (CKD-EPI)AfAm (>60 ml/min/1.73 sqM) Est GFR (CKD-EPI)NonAf (>60 ml/min/1.73 sqM) Glucose (74-99) mg/dL Plasma Lactic Acid Gabe (0.7-2.0) mmol/L Calcium (8.4-10.2) mg/dL Magnesium (1.6-2.3) mg/dL Total Bilirubin (0.2-1.3) mg/dL AST (17-59) U/L ALT (4-49) U/L Alkaline Phosphatase (38-126) U/L Creatine Kinase (55-170) U/L Troponin I (0.000-0.034) ng/mL NT-Pro-B Natriuret Pep 100 pg/mL Total Protein (6.3-8.2) g/dL Albumin (3.5-5.0) g/dL 04/11/20 04/11/20 04/11/20 Range/Units 09:15 09:15 09:15 WBC (3.8-10.6) k/uL RBC (4.30-5.90) m/uL Hgb (13.0-17.5) gm/dL Hct (39.0-53.0) % MCV (80.0-100.0) fL MCH (25.0-35.0) pg MCHC (31.0-37.0) g/dL RDW (11.5-15.5) % Plt Count (150-450) k/uL MPV Neutrophils % % Lymphocytes % % Monocytes % % Eosinophils % % Basophils % % Neutrophils # (1.3-7.7) k/uL Lymphocytes # (1.0-4.8) k/uL Monocytes # (0-1.0) k/uL Eosinophils # (0-0.7) k/uL Basophils # (0-0.2) k/uL PT (9.0-12.0) sec INR (<1.2) APTT (22.0-30.0) sec Sodium 135 L (137-145) mmol/L Potassium 4.6 (3.5-5.1) mmol/L Chloride 97 L (98-107) mmol/L Carbon Dioxide 31 H (22-30) mmol/L Anion Gap 7 mmol/L BUN 26 H (9-20) mg/dL Creatinine 1.04 (0.66-1.25) mg/dL Est GFR (CKD-EPI)AfAm 83 (>60 ml/min/1.73 sqM) Est GFR (CKD-EPI)NonAf 72 (>60 ml/min/1.73 sqM) Glucose 101 H (74-99) mg/dL Plasma Lactic Acid Gabe 1.3 (0.7-2.0) mmol/L Calcium 9.0 (8.4-10.2) mg/dL Magnesium 2.0 (1.6-2.3) mg/dL Total Bilirubin 1.1 (0.2-1.3) mg/dL AST 47 (17-59) U/L ALT 27 (4-49) U/L Alkaline Phosphatase 64 (38-126) U/L Creatine Kinase 865 H (55-170) U/L Troponin I <0.012 (0.000-0.034) ng/mL NT-Pro-B Natriuret Pep pg/mL Total Protein 6.7 (6.3-8.2) g/dL Albumin 3.8 (3.5-5.0) g/dL - EKG Data -: EKG Interpreted by Ms EKG Comments: Sinus tachycardia rate of 104. Interval 144 QRS duration 124 QT since QTC 356/468 possible left atrial enlargement nonspecific interventricular conduction delay. - Radiology Data Radiology results: report reviewed (Imaging reveals evidence of improving infi ltrate on a right evidence of possible scarring in the right side lung field.), image reviewed Disposition Clinical Impression: Pneumonia, Acute respiratory distress syndrome in adult, COPD exacerbation, Dehydration, Rhabdomyolysis, Febrile illness, acute Disposition: ADMITTED IP TO THIS [facility] Condition: Fair Referrals: Gerber Grissom MD [Primary Care Provider] - 1-2 days
[2020-04-11] MEDS ORDERED: SODIUM CHLORIDE 0.9% 500 ML 500 ML IV STA (08:38)
[2020-04-11 08:49] LABS: Basophils # (A) 0.1 k/uL (0-0.2); Basophils % (A) 1 %; Eosinophils # (A) 0.3 k/uL (0-0.7); Eosinophils % (A) 3 %; HGB 12.4 gm/dL (13.0-17.5); Lymphocytes # (A) 0.6 k/uL (1.0-4.8); Lymphocytes % (A) 5 %; MCH 30.4 pg (25.0-35.0); MCHC 33.5 g/dL (31.0-37.0); MCV 90.8 fL (80.0-100.0); Mean Platelet Volume 9.8; Monocytes # (A) 0.7 k/uL (0-1.0); Monocytes % (A) 6 %; Neutrophils # (A) 10.2 k/uL (1.3-7.7); Neutrophils % (A) 85 %; Platelet Count 190 k/uL (150-450); RBC 4.07 m/uL (4.30-5.90); RDW 13.6 % (11.5-15.5)
--- NOTE | 2020-04-11 09:07 | XR ---
EXAMINATION TYPE: XR chest 2V DATE OF EXAM: 04/11/2020 COMPARISON: 01/25/2020 HISTORY: 74-year-old male shortness of breath, difficulty breathing TECHNIQUE: PA and lateral views FINDINGS: Heart normal size. Atherosclerotic arch calcifications. Hyperinflation. Advanced upper lung emphysema tous change. Some residual patchy peripheral right upper to midlung density, slightly improved from 1 03/27/2019. Partially visualized posterior lumbar fusion hardware on the lateral view. No new consolida tion or pleural effusion. Overlying soft tissue density projects along the lower aspect of the lungs. IMPRESSION: COPD. Some residual patchy infiltrate remains in the periphery of the right upper to midlung, having improved from 01/25/2020. Findings may reflect a component of pleural parenchymal scarring.
[2020-04-11 09:47] LABS: Albumin 3.8 g/dL (3.5-5.0); Partial Thromboplastin Time 23.3 sec (22.0-30.0); Potassium 4.6 mmol/L (3.5-5.1); Prothrombin Time 10.6 sec (9.0-12.0); Total Bilirubin 1.1 mg/dL (0.2-1.3); Total Protein 6.7 g/dL (6.3-8.2)
[2020-04-11] MEDS ORDERED: VANCOMYCIN IV PER PHARMACY 1 EACH MISC MISCELLANE PRN (11:27)
[2020-04-11] MEDS ORDERED: CEFEPIME 2 GM in SODIUM CHLORIDE 0.9% 100 ML IVPB STA (11:27)
[2020-04-11] MEDS ORDERED: VANCOMYCIN 1,250 MG in SODIUM CHLORIDE 0.9% 250 ML IVPB STA (11:33)
[2020-04-11] MEDS ORDERED: LEVOFLOXACIN 750MG-D5W PMX 750 MG in DEXTROSE/WATER 1 150ML.BAG IVPB STA (11:40)
--- NOTE | 2020-04-11 11:42 | ED ---
Medical Decision Making - Lab Data Result diagrams: 04/11/20 08:38 04/11/20 09:15 Lab Results 04/11/20 04/11/20 04/11/20 Range/Units 08:38 08:38 09:15 WBC 12.0 H (3.8-10.6) k/uL RBC 4.07 L (4.30-5.90) m/uL Hgb 12.4 L (13.0-17.5) gm/dL Hct 37.0 L (39.0-53.0) % MCV 90.8 (80.0-100.0) fL MCH 30.4 (25.0-35.0) pg MCHC 33.5 (31.0-37.0) g/dL RDW 13.6 (11.5-15.5) % Plt Count 190 (150-450) k/uL MPV 9.8 Neutrophils % 85 % Lymphocytes % 5 % Monocytes % 6 % Eosinophils % 3 % Basophils % 1 % Neutrophils # 10.2 H (1.3-7.7) k/uL Lymphocytes # 0.6 L (1.0-4.8) k/uL Monocytes # 0.7 (0-1.0) k/uL Eosinophils # 0.3 (0-0.7) k/uL Basophils # 0.1 (0-0.2) k/uL PT 10.6 (9.0-12.0) sec INR 1.0 (<1.2) APTT 23.3 (22.0-30.0) sec Sodium (137-145) mmol/L Potassium (3.5-5.1) mmol/L Chloride (98-107) mmol/L Carbon Dioxide (22-30) mmol/L Anion Gap mmol/L BUN (9-20) mg/dL Creatinine (0.66-1.25) mg/dL Est GFR (CKD-EPI)AfAm (>60 ml/min/1.73 sqM) Est GFR (CKD-EPI)NonAf (>60 ml/min/1.73 sqM) Glucose (74-99) mg/dL Plasma Lactic Acid Gabe (0.7-2.0) mmol/L Calcium (8.4-10.2) mg/dL Magnesium (1.6-2.3) mg/dL Total Bilirubin (0.2-1.3) mg/dL AST (17-59) U/L ALT (4-49) U/L Alkaline Phosphatase (38-126) U/L Creatine Kinase (55-170) U/L Troponin I (0.000-0.034) ng/mL NT-Pro-B Natriuret Pep 100 pg/mL Total Protein (6.3-8.2) g/dL Albumin (3.5-5.0) g/dL 04/11/20 04/11/20 04/11/20 Range/Units 09:15 09:15 09:15 WBC (3.8-10.6) k/uL RBC (4.30-5.90) m/uL Hgb (13.0-17.5) gm/dL Hct (39.0-53.0) % MCV (80.0-100.0) fL MCH (25.0-35.0) pg MCHC (31.0-37.0) g/dL RDW (11.5-15.5) % Plt Count (150-450) k/uL MPV Neutrophils % % Lymphocytes % % Monocytes % % Eosinophils % % Basophils % % Neutrophils # (1.3-7.7) k/uL Lymphocytes # (1.0-4.8) k/uL Monocytes # (0-1.0) k/uL Eosinophils # (0-0.7) k/uL Basophils # (0-0.2) k/uL PT (9.0-12.0) sec INR (<1.2) APTT (22.0-30.0) sec Sodium 135 L (137-145) mmol/L Potassium 4.6 (3.5-5.1) mmol/L Chloride 97 L (98-107) mmol/L Carbon Dioxide 31 H (22-30) mmol/L Anion Gap 7 mmol/L BUN 26 H (9-20) mg/dL Creatinine 1.04 (0.66-1.25) mg/dL Est GFR (CKD-EPI)AfAm 83 (>60 ml/min/1.73 sqM) Est GFR (CKD-EPI)NonAf 72 (>60 ml/min/1.73 sqM) Glucose 101 H (74-99) mg/dL Plasma Lactic Acid Gabe 1.3 (0.7-2.0) mmol/L Calcium 9.0 (8.4-10.2) mg/dL Magnesium 2.0 (1.6-2.3) mg/dL Total Bilirubin 1.1 (0.2-1.3) mg/dL AST 47 (17-59) U/L ALT 27 (4-49) U/L Alkaline Phosphatase 64 (38-126) U/L Creatine Kinase 865 H (55-170) U/L Troponin I <0.012 (0.000-0.034) ng/mL NT-Pro-B Natriuret Pep pg/mL Total Protein 6.7 (6.3-8.2) g/dL Albumin 3.8 (3.5-5.0) g/dL Critical Care Time Critical Care Time: Yes Total Critical Care Time: 37 Critical Care Time: Critical care time includes initial presentation with history physical labs x- rays discussed with paramedics upon arrival. Review of old charting was available multiple reevaluation the patient response to therapy discuss with the admitting physician admission orders and documentation of the above Disposition Clinical Impression: Pneumonia, Acute respiratory distress syndrome in adult, COPD exacerbation, Dehydration, Rhabdomyolysis, Febrile illness, acute Disposition: ADMITTED IP TO THIS [facility] Condition: Fair Referrals: Gerber Grissom MD [Primary Care Provider] - 1-2 days
[2020-04-11] MEDS: SODIUM CHLORIDE 0.9% 1,000 ML IV SCH ×3 (12:01→23:37)
[2020-04-11] MEDS: methylPREDNISolone SOD SUCCI 125 MG/2 ML VIAL IV SCH ×2 (12:03→21:34)
[2020-04-11] MEDS: IPRATROPIUM-ALBUTEROL 3 ML NEB INHALATION SCH ×3 (12:16→19:02)
--- NOTE | 2020-04-11 16:31 | P.CNPUL ---
History of Present Illness Consult date: 04/11/20 Requesting physician: Gerber Grissom Reason for consult: dyspnea, cough, COPD, hypoxemia Chief complaint: Shortness of breath. History of present illness: 74-year-old male, that we saw in the emergency department. The patient has a well-established history of COPD, and apparently sees my partner in the office. He apparently has an FEV1 that is 31% of predicted. He does have chronic hy poxemic respiratory failure and does use oxygen 10/09. Unfortunately, he still smokes at least a half a pack a day. He admits it freely. He comes in with complaints of increasing shortness of breath over about 3 or 4 days prior to admission. In addition, he is coughing and wheezing. He is producing yellow/green phlegm. He denies any fever or chills. He does apparently have some left-sided chest discomfort. The patient was seen in the emergency room. His primary care provider is Dr. Gerber Grissom. His medical history includes severe COPD, hyperlipidemia, chronic hypoxemic respiratory failure, methicillin-resistant staph aureus pneumonia, solitary pulmonary nodule, thoracic aortic aneurysm, chronic hepatitis C, among other diagnoses. Currently, the patient is feeling a bit better currently than he did when he first came in. He is on O2 at 2 L. He's not getting any IV fluids. His white count is 12, hemoglobin 12.4, hematocrit 37, and a platelet count 190,000. PT, INR, and PTT all normal. Sodium 135, potassium 4.6, chlorides 97, CO2 31, anion gap 7, BUN 26, and creatinine 1.04. Chest x-ray shows some patchy abnormalities in the right midlung and right upper lobe, which are improved compared to prior chest x-ray. His prior admission was from January 19 through January 25, and at that time, he was diagnosed with a right-sided pneumonia. I actually saw him in consultation. Review of Systems REVIEW OF SYSTEMS: CONSTITUTIONAL: [Negative.] NEUROLOGIC: [ Negative.] HEENT: [ Negative.] CARDIAC: Chest pain. PULMONARY: Shortness of breath, chest tightness, wheezing, cough, and yellow green phlegm production. GI: [Negative.] : [Negative.] RHEUMATOLOGIC: [ Negative.] IMMUNOLOGIC: [ Negative.] ENDOCRINE: [Negative. 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 History of Any Multi-Drug Resistant Organisms: MRSA Date of last positivie culture/infection: 08/27/18 MDRO Source:: BRONCH WASH Past Surgical History: Appendectomy, Back Surgery, Joint Replacement Additional Past Surgical History / Comment(s): Lumbar laminectomy/fusion, bilateral total hip replacements, bronchoscopy, colonoscopy. Past Anesthesia/Blood Transfusion Reactions: No Reported Reaction Additional Past Anesthesia/Blood Transfusion Reaction / Comment(s): Pt received blood with hip surgery Smoking Status: Current every day smoker - Past Family History Father Family Medical History: Myocardial Infarction ([place]) Additional Family Medical History / Comment(s): Father of a OR at the age of 70yrs. Mother Family Medical History: No Reported History Additional Family Medical History / Comment(s): Pt states mother was healthy Medications and Allergies Home Medications Medication Instructions Recorded Confirmed Type Ergocalciferol [Vitamin D2 50,000 unit PO Q30D 08/17/18 04/11/20 History (DRISDOL)] Tiotropium [place] [Spiriva] 1 cap INHALATION RT-DAILY 08/17/18 04/11/20 History traMADol HCL [Ultram] 50 mg PO BID PRN 08/17/18 04/11/20 History FLUoxetine HCL [PROzac] 20 mg PO DAILY #30 cap 10/04/18 04/11/20 Rx Docusate [Colace] 100 mg PO BID #60 cap 10/08/18 04/11/20 Rx Fluticasone Propion/Salmeterol 1 puff INHALATION RT-DAILY 05/23/19 04/11/20 History [[place]ixela 500-50 Inhub] Albuterol Sulfate [Ventolin HFA] 2 puff INHALATION RT-Q6H PRN 01/20/20 04/11/20 History Famotidine [Pepcid] 20 mg PO BID PRN 01/20/20 04/11/20 History Multivitamins, Thera [Multivitamin 1 tab PO DAILY 01/20/20 04/11/20 History (formulary)] Naproxen 500 mg PO BID 01/20/20 04/11/20 History OLANZapine [ZyPREXA] 2.5 mg PO TID 01/20/20 04/11/20 History Olopatadine HCl [Pataday] 1 drop BOTH EYES BID 01/20/20 04/11/20 History Allergies Allergy/AdvReac Type Severity Reaction Status Date / Time No Known Allergies Allergy Verified 04/11/20 09:02 Physical Exam Osteopathic Statement: *. No significant issues noted on an osteopathic structural exam other than those noted in the History and Physical/Consult. Vitals: Vital Signs Temp Pulse Resp BP Pulse Ox 04/11/20 15:21 94 04/11/20 15:13 92 04/11/20 15:00 90 18 95 04/11/20 14:00 85 18 125/83 95 04/11/20 13:00 92 18 113/82 95 04/11/20 12:23 88 04/11/20 12:17 89 04/11/20 12:00 88 04/11/20 11:29 93 20 126/76 95 04/11/20 10:29 95 20 123/84 95 04/11/20 09:38 99 04/11/20 09:33 100 04/11/20 09:29 99 20 130/78 95 04/11/20 08:30 18 04/11/20 08:23 99.1 F 104 H 18 137/80 96 Intake and Output 04/11/20 04/11/20 04/11/20 06:59 14:59 22:59 Other: Weight 68.039 kg No acute distress, oriented 3. Nasal O2 in place. No conversational dyspnea, audible wheezing, or use of accessory muscles. HEENT examination is grossly unremarkable. Mucous membranes are moist. No oral lesions. Neck supple. Full range of motion. No adenopathy thyromegaly or neck vein distention. Cardiovascular examination reveals regular rhythm rate. S1-S2 normal. No S3 or S4. No discernible murmur noted. Lungs reveal severely diminished bilateral breath sounds. Coarse expiratory rhonchi and expiratory wheezes are appreciated. There is slight prolongation on forced maneuver. No crackles appreciated. Breath sounds are equal bilaterally but diminished throughout.. Abdomen soft bowel sounds are heard. No masses or tenderness. Extremities are intact. No cyanosis clubbing or edema. Skin is without rash or lesion. Neurologic examination is brief but nonfocal. Results - Laboratory Findings CBC and BMP: 04/11/20 08:38 04/11/20 09:15 PT/INR, D-dimer PT 10.6 sec (9.0-12.0) 04/11/20 09:15 INR 1.0 (<1.2) 04/11/20 09:15 Abnormal lab findings: Abnormal Labs 04/11/20 04/11/20 08:38 09:15 WBC 12.0 H RBC 4.07 L Hgb 12.4 L Hct 37.0 L Neutrophils # 10.2 H Lymphocytes # 0.6 L Sodium 135 L Chloride 97 L Carbon Dioxide 31 H BUN 26 H Glucose 101 H Creatine Kinase 865 H - Diagnostic Findings Chest x-ray: image reviewed Assessment and Plan Assessment: Acute hypoxemic respiratory failure secondary to COPD exacerbation. Chronic hypoxemic respiratory failure, currently on home O2 at 3 L. History of ongoing tobacco use with nicotine addiction. Probable purulent tracheobronchitis, as well as resolving pneumonia right midlung and right upper lobe. History of hyperlipidemia. Prior history of MRSA pneumonia. History of solitary pulmonary nodule, left upper lobe, 9 mm. History of hepatitis C. Thoracic aortic aneurysm. Plan: Plan dated 02/08/2021. The patient's medications will be reviewed. He needs to be on DuoNeb, 4 times a day and when necessary, as well as Pulmicort 1 mg mixed with formoterol, 20 g, twice a day. Would also recommend Solu-Medrol, 60 mg IV push every 6 hours. Finally, he probably only needs an oral antibiotic. He probably likely has more of a purulent tracheobronchitis than a clay pneumonia. Additional r ecommendations and suggestions are forthcoming. Continue to follow. He would benefit from a nicotine patch. He is counseled about the importance of smoking cessation. Time with Patient: Greater than 30
[2020-04-11] MEDS: OLANZapine 2.5 MG TAB PO SCH ×2 (16:50→23:09)
[2020-04-11] MEDS: FORMOTEROL FUMARATE 20 MCG/2 ML NEBU INHALATION SCH (19:02)
[2020-04-11] MEDS: BUDESONIDE 1 MG/2 ML NEBU INHALATION SCH (19:03)
[2020-04-11] MEDS ORDERED: SYMBICORT 160-4.5 MCG INHALER INHALATION SCH (20:00)
[2020-04-11] MEDS ORDERED: VANCOMYCIN 1,250 MG in SODIUM CHLORIDE 0.9% 250 ML IVPB SCH (23:00)
[2020-04-11] MEDS: DOCUSATE 100 MG CAP PO SCH (23:09)
[2020-04-11] MEDS: NAPROXEN 250 MG TAB PO SCH (23:09)
[2020-04-11] MEDS: KETOTIFEN 0.025% OPHTH DROPS 5 ML BTL BOTH EYES SCH (23:10)
[2020-04-11] MEDS: traMADol 50 MG TAB PO PRN (23:28)
[2020-04-12] MEDS: methylPREDNISolone SOD SUCCI 125 MG/2 ML VIAL IV SCH ×5 (01:27→23:50)
[2020-04-12] MEDS: IPRATROPIUM-ALBUTEROL 3 ML NEB INHALATION PRN (05:04)
[2020-04-12] MEDS: IPRATROPIUM-ALBUTEROL 3 ML NEB INHALATION SCH ×4 (07:24→19:49)
[2020-04-12] MEDS: BUDESONIDE 1 MG/2 ML NEBU INHALATION SCH ×2 (07:24→19:50)
[2020-04-12] MEDS: FORMOTEROL FUMARATE 20 MCG/2 ML NEBU INHALATION SCH ×2 (07:39→20:05)
[2020-04-12] MEDS ORDERED: IPRATROPIUM 0.5 MG/2.5 ML NEBU INHALATION SCH (08:00)
[2020-04-12] MEDS: LEVOFLOXACIN 500 MG TAB PO SCH (09:58)
[2020-04-12] MEDS: MULTIVITAMINS, THERA 1 EACH TAB PO SCH (09:58)
[2020-04-12] MEDS: FLUoxetine HCL 20 MG CAP PO SCH (09:58)
[2020-04-12] MEDS: DOCUSATE 100 MG CAP PO SCH ×2 (09:58→22:22)
[2020-04-12] MEDS: KETOTIFEN 0.025% OPHTH DROPS 5 ML BTL BOTH EYES SCH ×2 (09:59→22:23)
[2020-04-12] MEDS: NAPROXEN 250 MG TAB PO SCH ×2 (10:00→22:22)
[2020-04-12] MEDS: OLANZapine 2.5 MG TAB PO SCH ×3 (10:00→22:22)
[2020-04-12] MEDS: NICOTINE 21MG/24HR PATCH TRANSDERM SCH (12:57)
[2020-04-12] MEDS: FAMOTIDINE 20 MG TAB PO PRN (14:01)
--- NOTE | 2020-04-12 14:31 | P.PN ---
Subjective Progress Note Date: 04/12/20 Principal diagnosis: COPD exacerbation. 74-year-old male, that we saw in the emergency department. The patient has a well-established history of COPD, and apparently sees my partner in the office. He apparently has an FEV1 that is 31% of predicted. He does have chronic hypoxe [place] respiratory failure and does use oxygen 24/7. Unfortunately, he still smokes at least a half a pack a day. He admits it freely. He comes in with complaints of increasing shortness of breath over about 3 or 4 days prior to admission. In addition, he is coughing and wheezing. He is producing yellow/green phlegm. He denies any fever or chills. He does apparently have some left-sided chest discomfort. The patient was seen in the emergency room. His primary care provider is Dr. Gerber Grissom. His medical history includes severe COPD, hyperlipidemia, chronic hypoxemic respiratory failure, methicillin-resistant staph aureus pneumonia, solitary pulmonary nodule, thoracic aortic aneurysm, chronic hepatitis C, among other diagnoses. Currently, the patient is feeling a bit better currently than he did when he first came in. He is on O2 at 2 L. He's not getting any IV fluids. His white count is 12, hemoglobin 12.4, hematocrit 37, and a platelet count 190,000. PT, INR, and PTT all normal. Sodium 135, potassium 4.6, chlorides 97, CO2 31, anion gap 7, BUN 26, and creatinine 1.04. Chest x-ray shows some patchy abnormalities in the right midlung and right upper lobe, which are improved compared to prior chest x-ray. His prior admission was from January 19 through January 25, and at that time, he was diagnosed with a right-sided pneumonia. I actually saw him in consultation. Progress note dated 04/12/2020. 74-year-old male who we saw yesterday in the emergency department. He has a history of very severe COPD. He has stage III/stage IV disease, with an FEV1 that is apparently 31% of predicted. He also has chronic hypoxemic respiratory failure. He does use oxygen at home on a chronic basis. Unfortunately, the patient continues to smoke cigarettes and came into the emergency room complaining of increasing shortness of breath, cough, wheezing, chest tightness, and yellow/green phlegm production. He is feeling a bit better today. In addition, he has a history of hyperlipidemia, chronic hypoxemic respiratory failure, methicillin-resistant staph aureus pneumonia, solitary pulmonary nodule, thoracic aortic aneurysm, and chronic hepatitis C. The patient has no new labs ordered for today. Chest x-ray was one that was done in the emergency department on April 11. Medications have been reviewed. The patient is feeling a bit better. He does feel less short of breath. His chest x-ray from admission shows evidence of patchy infiltrates in the right midlung and right upper lobe, which are improved from his previous x-rays, and his prior admission to the hospital back in early January. Objective - Vital Signs Vital signs: Vital Signs Temp 97.8 F 04/12/20 08:00 Pulse 89 04/12/20 11:45 Resp 16 04/12/20 08:00 BP 138/73 04/12/20 08:00 Pulse Ox 92 L 04/12/20 08:00 Intake & Output 04/11/20 04/12/20 04/12/20 18:59 06:59 18:59 Intake Total 200 Balance 200 Weight 68.039 kg Intake: Oral 200 Other: # Voids 1 1 - Exam No acute distress, oriented 3. Nasal O2 in place. No conversational dyspnea, audible wheezing, or use of accessory muscles. HEENT examination is grossly unremarkable. Mucous membranes are moist. No oral lesions. Neck supple. Full range of motion. No adenopathy thyromegaly or neck vein distention. Cardiovascular examination reveals regular rhythm rate. S1-S2 normal. No S3 or S4. No discernible murmur noted. Heart sounds are distant, and heart rate is 89 bpm. Lungs reveal severely diminished bilateral breath sounds. Breath sounds are bit improved today. The expiratory rhonchi and wheezes heard yesterday were not as prominent. Breath sounds are severely diminished. There is prolongation on forced maneuver. Abdomen soft bowel sounds are heard. No masses or tenderness. Extremities are intact. No cyanosis clubbing or edema. Skin is without rash or lesion. Neurologic examination is brief but nonfocal. - Labs CBC & Chem 7: 04/11/20 08:38 04/11/20 09:15 Labs: Abnormal Lab Results - Last 24 Hours (Table) 04/11/20 Range/Units 09:15 Procalcitonin 0.15 H (0.02-0.09) ng/mL Microbiology - Last 24 Hours (Table) 04/11/20 09:15 Blood Culture - Preliminary Blood No Growth after 24 hours Assessment and Plan Assessment: Acute hypoxemic respiratory failure secondary to COPD exacerbation. Severe COPD, with an FEV1 of 31%. Chronic hypoxemic respiratory failure, currently on home O2 at 3 L. History of ongoing tobacco use with nicotine addiction. Probable purulent tracheobronchitis, as well as resolving pneumonia right midlung and right upper lobe. History of hyperlipidemia. Prior history of MRSA pneumonia. History of solitary pulmonary nodule, left upper lobe, 9 mm. History of hepatitis C. Thoracic aortic aneurysm. Plan: Plan dated 02/09/2021. The patient seems be doing a bit better today. The patient continues on DuoNeb's 4 times a day and when necessary, as well as Pulmicort and formoterol updrafts twice a day. The patient also continues on Solu-Medrol. We did add a nicotine patch. The patient is craving tobacco. The patient is on antibiotics in the form of Levaquin, 500 mg a day. I think that's appropriate. No additional recommendations are made. We will continue to follow this patient. The patient will follow-up in our office once he is discharged. Time with Patient: Less than 30
[2020-04-12 15:26] VITALS: BMI 22.1
--- NOTE | 2020-04-12 18:20 | HP ---
HISTORY AND PHYSICAL CHIEF COMPLAINT: Shortness of breath, fever and chills. HISTORY OF PRESENT ILLNESS: This is another admission for this 74-year-old white male who has severe COPD. He has been getting along fairly well at home. He started to develop shortness of breath and a low-grade fever. He came to emergency room. He was quite dyspneic and struggling to breathe. His CK was 865. He was dehydrated. X-ray suggested right lower lobe infiltrate, but this may be scar tissue from his previous pneumonitis. White count was also elevated. REVIEW OF SYSTEMS: He has had no confusion, headaches, hemoptysis, chest pain, nausea, vomiting, hematemesis, melena, hematochezia, jaundice, dysuria, frequency, urgency, incontinence, etc. Past medical history, family history, and personal and social histories are unchanged for the most part. He has a history of hyperlipidemia, hepatitis C, amyloidosis, left ventricular aneurysm, coronary artery disease and heavy smoking. He does not smoke any longer. Medications include: 1. Naprosyn p.r.n. 2. Fluoxetine 20 mg once a day. 3. Olopatadine ophthalmic solution each eye twice a day. 4. Vitamin D once a month. 5. Olanzapine 2.5 once a day. 6. Wixela 2 puffs twice a day. 7. Pepcid 20 mg once a day. 8. Tramadol 50 mg q.6 p.r.n. 9. Metoprolol 25 one and one-half tablet twice a day. 10.Albuterol MDI and Spiriva once a day. The remainder of the history is otherwise unremarkable. PHYSICAL EXAMINATION: Blood pressure is 121/78 with a pulse of 96, respirations of 38, and temperature is 99. In general he appeared to be dyspneic. He was slightly dehydrated. Skin color was normal. Head, ears, eyes, nose, mouth and throat were normal. Neck veins were not distended. Chest demonstrated increased AP diameter with very poor breath sounds. Cardiac exam demonstrated sinus tachycardia and there were no murmurs or extra sounds. Abdomen was scaphoid and there were no masses or visceromegaly. There was no tenderness. Bowel sounds were present. Extremities were normal. Neurologically he was intact. IMPRESSION: 1. Exacerbation of chronic obstructive pulmonary disease. 2. Right lower lobe pneumonitis. PLAN: 1. Bedrest. 2. IV fluids. 3. IV and inhaled steroids. 4. Updrafts. 5. Pulmonology consult. MMODL / LISAN: [id number] /
--- NOTE | 2020-04-12 18:51 | PN ---
PROGRESS NOTE DATE OF SERVICE: 04/12/2020 CHIEF COMPLAINT: Shortness of breath, fever and pneumonitis. HISTORY OF PRESENT ILLNESS: This gentleman is a little bit better. He is still feeling extremely weak. He is still short of breath. PHYSICAL EXAMINATION: Breath sounds are extremely poor due to COPD, emphysema and increased AP diameter. Cardiac exam is normal and the abdomen is soft, nontender. He is still dehydrated. IMPRESSION: 1. Exacerbation of chronic obstructive pulmonary disease. 2. Right lower lobe pneumonitis. PLAN: Continue with IV fluids, antibiotics and updrafts. MMODL / IJN: [id number] /
[2020-04-12] MEDS: traMADol 50 MG TAB PO PRN (22:23)
[2020-04-12] MEDS: SODIUM CHLORIDE 0.9% 1,000 ML IV SCH (22:24)
[2020-04-13] MEDS: methylPREDNISolone SOD SUCCI 125 MG/2 ML VIAL IV SCH ×4 (05:06→23:29)
[2020-04-13] MEDS: SODIUM CHLORIDE 0.9% 1,000 ML IV SCH ×3 (05:07→22:02)
[2020-04-13] MEDS: FORMOTEROL FUMARATE 20 MCG/2 ML NEBU INHALATION SCH ×2 (08:08→19:52)
[2020-04-13] MEDS: BUDESONIDE 1 MG/2 ML NEBU INHALATION SCH ×2 (08:08→19:52)
[2020-04-13] MEDS: IPRATROPIUM-ALBUTEROL 3 ML NEB INHALATION SCH ×4 (08:08→19:52)
[2020-04-13] MEDS: FLUoxetine HCL 20 MG CAP PO SCH (08:21)
[2020-04-13] MEDS: LEVOFLOXACIN 500 MG TAB PO SCH (08:21)
[2020-04-13] MEDS: MULTIVITAMINS, THERA 1 EACH TAB PO SCH (08:21)
[2020-04-13] MEDS: DOCUSATE 100 MG CAP PO SCH ×2 (08:21→22:00)
[2020-04-13] MEDS: NICOTINE 21MG/24HR PATCH TRANSDERM SCH (08:22)
[2020-04-13] MEDS: NAPROXEN 250 MG TAB PO SCH ×2 (08:22→22:01)
[2020-04-13] MEDS: OLANZapine 2.5 MG TAB PO SCH ×3 (08:23→22:01)
[2020-04-13] MEDS: KETOTIFEN 0.025% OPHTH DROPS 5 ML BTL BOTH EYES SCH ×2 (08:25→22:01)
--- NOTE | 2020-04-13 11:21 | P.PN ---
Subjective Progress Note Date: 04/13/20 Principal diagnosis: Acute exacerbation of chronic obstructive pulmonary disease 74-year-old male, that we saw in the emergency department. The patient has a well-established history of COPD, and apparently sees my partner in the office. He apparently has an FEV1 that is 31% of predicted. He does have chronic hypoxemic respiratory failure and does use oxygen /. Unfortunately, he still smokes at least a half a pack a day. He admits it freely. He comes in with complaints of increasing shortness of breath over about 3 or 4 days prior to admission. In addition, he is coughing and wheezing. He is producing yellow/green phlegm. He denies any fever or chills. He does apparently have some left-sided chest discomfort. The patient was seen in the emergency room. His primary care provider is Dr. Gerber Grissom. His medical history includes severe COPD, hyperlipidemia, chronic hypoxemic respiratory failure, methicillin-resistant staph aureus pneumonia, solitary pulmonary nodule, thoracic aortic aneurysm, chronic hepatitis C, among other diagnoses. Current ly, the patient is feeling a bit better currently than he did when he first came in. He is on O2 at 2 L. He's not getting any IV fluids. His white count is 12, hemoglobin 12.4, hematocrit 37, and a platelet count 190,000. PT, INR, and PTT all normal. Sodium 135, potassium 4.6, chlorides 97, CO2 31, anion gap 7, BUN 26, and creatinine 1.04. Chest x-ray shows some patchy abnormalities in the right midlung and right upper lobe, which are improved compared to prior chest x-ray. His prior admission was from January 19 through January 25, and at that time, he was diagnosed with a right-sided pneumonia. I actually saw him in consultation. Progress note dated 04/12/2020. 74-year-old male who we saw yesterday in the emergency department. He has a history of very severe COPD. He has stage III/stage IV disease, with an FEV1 that is apparently 31% of predicted. He also has chronic hypoxemic respiratory failure. He does use oxygen at home on a chronic basis. Unfortunately, the patient continues to smoke cigarettes and came into the emergency room complaining of increasing shortness of breath, cough, wheezing, chest tightness, and yellow/green phlegm production. He is feeling a bit better today. In addition, he has a history of hyperlipidemia, chronic hypoxemic respiratory ally lure, methicillin-resistant staph aureus pneumonia, solitary pulmonary nodule, thoracic aortic aneurysm, and chronic hepatitis C. The patient has no new labs ordered for today. Chest x-ray was one that was done in the emergency department on April 11. Medications have been reviewed. The patient is feeling a bit better. He does feel less short of breath. His chest x-ray from admission shows evidence of patchy infiltrates in the right midlung and right upper lobe, which are improved from his previous x-rays, and his prior admission to the hospital back in early January. The patient is seen today 04/13/2020 in follow-up on the regular medical floor. He is currently resting comfortably in bed. Awake and alert in no acute distress. He is maintaining O2 saturation in the 90s on 5 L/m per nasal cannula. He is somewhat tremorous and shaky today. NicoDerm patch is in place. Denies alcohol use. Blood cultures reveal no growth. He remains on Levaquin. DuoNeb inhalations, Pulmicort and Perforomist inhalations, IV Solu-Medrol. Objective - Vital Signs Vital signs: Vital Signs Temp 97.9 F 04/13/20 08:00 Pulse 92 04/13/20 08:30 Resp 17 04/13/20 08:00 BP 128/77 04/13/20 08:00 Pulse Ox 94 L 04/13/20 08:00 Intake & Output 04/12/20 04/13/20 04/13/20 18:59 06:59 18:59 Intake Total 1200 180 Balance 1200 180 Weight 68.039 kg Intake: IV 800 Sodium Chloride 0.9% 1, 800 000 ml @ 100 mls/hr IV . Q10H [facility] Rx#:[id number] Oral 400 180 Other: Voiding Method Toilet Toilet # Voids 1 1 # Bowel Movements 1 - Exam GENERAL EXAM: Alert, pleasant 74-year-old gentleman, on 5 L nasal cannula, comfortable in no apparent distress. HEAD: Normocephalic. EYES: Normal reaction of pupils, equal size. NOSE: Clear with pink turbinates. THROAT: No erythema or exudates. NECK: No masses, no JVD. CHEST: No chest wall deformity. LUNGS: Equal air entry with bilateral end expiratory wheeze, diminished. CVS: S1 and S2 normal with no audible murmur, regular rhythm. ABDOMEN: No hepatosplenomegaly, normal bowel sounds, no guarding or rigidity. SPINE: No scoliosis or deformity SKIN: No rashes CENTRAL NERVOUS SYSTEM: No focal deficits, tone is normal in all 4 extremities. EXTREMITIES: There is no peripheral edema. No clubbing, no cyanosis. Peripheral pulses are intact. - Labs CBC & Chem 7: 04/11/20 08:38 04/11/20 09:15 Labs: Microbiology - Last 24 Hours (Table) 04/11/20 09:15 Blood Culture - Preliminary Blood No Growth after 24 hours Assessment and Plan Assessment: Acute hypoxemic respiratory failure secondary to COPD exacerbation. Severe COPD, with an FEV1 of 31%. Chronic hypoxemic respiratory failure, currently on home O2 at 3 L. History of ongoing tobacco use with nicotine addiction. Probable purulent tracheobronchitis, as well as resolving pneumonia right m idlung and right upper lobe. History of hyperlipidemia. Prior history of MRSA pneumonia. History of solitary pulmonary nodule, left upper lobe, 9 mm. History of hepatitis C. Thoracic aortic aneurysm. Plan: The patient was seen and evaluated by Dr. Sherman Continue the current treatment plan for now Again educated regarding the importance of complete smoking cessation Increase his activity as tolerated Titrate down the FiO2 as tolerated We'll continue to follow I, the cosigning physician, performed a history & physical examination of the patient. Lungs sounds with bilateral end expiratory wheeze, diminished. Maintaining good O2 saturations in the 90s on 5 L/m per nasal cannula. I discussed the assessment and plan of care with my nurse practitioner, Joi Bustamante. I attest to the above note as dictated by her.
--- NOTE | 2020-04-13 12:12 | PN ---
PROGRESS NOTE CHIEF COMPLAINT: Respiratory failure and pneumonitis with COPD. HISTORY OF PRESENT ILLNESS: This gentleman is doing a little bit better. He is feeling a bit stronger. He is still very dyspneic. He is not running a fever. PHYSICAL EXAMINATION: He has decreased breath sounds throughout with an increased AP diameter. He has scattered rales throughout. Cardiac exam is normal. IMPRESSION: 1. Right lower lobe pneumonitis. 2. Exacerbation of chronic obstructive pulmonary disease. 3. Generalized weakness. PLAN: Start to progress activity and probably home in the next day or 2. MMODL / IJN: [id number] /
[2020-04-13] MEDS: FAMOTIDINE 20 MG TAB PO PRN (15:38)
[2020-04-14] MEDS: IPRATROPIUM-ALBUTEROL 3 ML NEB INHALATION PRN (02:22)
[2020-04-14] MEDS: methylPREDNISolone SOD SUCCI 125 MG/2 ML VIAL IV SCH ×4 (07:12→23:14)
[2020-04-14] MEDS: IPRATROPIUM-ALBUTEROL 3 ML NEB INHALATION SCH ×4 (07:25→19:46)
[2020-04-14] MEDS: BUDESONIDE 1 MG/2 ML NEBU INHALATION SCH ×2 (07:25→19:45)
[2020-04-14] MEDS: FORMOTEROL FUMARATE 20 MCG/2 ML NEBU INHALATION SCH ×2 (07:25→19:46)
[2020-04-14] MEDS: LEVOFLOXACIN 500 MG TAB PO SCH (09:26)
[2020-04-14] MEDS: FLUoxetine HCL 20 MG CAP PO SCH (09:27)
[2020-04-14] MEDS: NAPROXEN 250 MG TAB PO SCH ×2 (09:27→21:24)
[2020-04-14] MEDS: MULTIVITAMINS, THERA 1 EACH TAB PO SCH (09:27)
[2020-04-14] MEDS: DOCUSATE 100 MG CAP PO SCH ×2 (09:27→21:24)
[2020-04-14] MEDS: OLANZapine 2.5 MG TAB PO SCH ×3 (09:27→21:25)
[2020-04-14] MEDS: NICOTINE 21MG/24HR PATCH TRANSDERM SCH (09:29)
[2020-04-14] MEDS: KETOTIFEN 0.025% OPHTH DROPS 5 ML BTL BOTH EYES SCH ×2 (12:25→21:25)
--- NOTE | 2020-04-14 12:53 | P.PN ---
Subjective Progress Note Date: 04/14/20 Principal diagnosis: Acute exacerbation of chronic obstructive pulmonary disease 74-year-old male, that we saw in the emergency department. The patient has a well-established history of COPD, and apparently sees my partner in the office. He apparently has an FEV1 that is 31% of predicted. He does have chronic hypoxemic respiratory failure and does use oxygen 24/. Unfortunately, he still smokes at least a half a pack a day. He admits it freely. He comes in with complaints of increasing shortness of breath over about 3 or 4 days prior to admission. In addition, he is coughing and wheezing. He is producing yellow/green phlegm. He denies any fever or chills. He does apparently have some left-sided chest discomfort. The patient was seen in the emergency room. His primary care provider is Dr. Gerber Grissom. His medical history includes severe COPD, hyperlipidemia, chronic hypoxemic respiratory failure, methicillin-resistant staph aureus pneumonia, solitary pulmonary nodule, thoracic aortic aneurysm, chronic hepatitis C, among other diagnoses. Current ly, the patient is feeling a bit better currently than he did when he first came in. He is on O2 at 2 L. He's not getting any IV fluids. His white count is 12, hemoglobin 12.4, hematocrit 37, and a platelet count 190,000. PT, INR, and PTT all normal. Sodium 135, potassium 4.6, chlorides 97, CO2 31, anion gap 7, BUN 26, and creatinine 1.04. Chest x-ray shows some patchy abnormalities in the right midlung and right upper lobe, which are improved compared to prior chest x-ray. His prior admission was from January 19 through January 25, and at that time, he was diagnosed with a right-sided pneumonia. I actually saw him in consultation. Progress note dated 04/12/2020. 74-year-old male who we saw yesterday in the emergency department. He has a history of very severe COPD. He has stage III/stage IV disease, with an FEV1 that is apparently 31% of predicted. He also has chronic hypoxemic respiratory failure. He does use oxygen at home on a chronic basis. Unfortunately, the patient continues to smoke cigarettes and came into the emergency room complaining of increasing shortness of breath, cough, wheezing, chest tightness, and yellow/green phlegm production. He is feeling a bit better today. In addition, he has a history of hyperlipidemia, chronic hypoxemic respiratory ally lure, methicillin-resistant staph aureus pneumonia, solitary pulmonary nodule, thoracic aortic aneurysm, and chronic hepatitis C. The patient has no new labs ordered for today. Chest x-ray was one that was done in the emergency department on April 11. Medications have been reviewed. The patient is feeling a bit better. He does feel less short of breath. His chest x-ray from admission shows evidence of patchy infiltrates in the right midlung and right upper lobe, which are improved from his previous x-rays, and his prior admission to the hospital back in early January. The patient is seen today 04/13/2020 in follow-up on the regular medical floor. He is currently resting comfortably in bed. Awake and alert in no acute distress. He is maintaining O2 saturation in the 90s on 5 L/m per nasal cannula. He is somewhat tremorous and shaky today. NicoDerm patch is in place. Denies alcohol use. Blood cultures reveal no growth. He remains on Levaquin. DuoNeb inhalations, Pulmicort and Perforomist inhalations, IV Solu-Medrol. Patient is seen today 04/14/2020 in follow-up on the regular medical floor. He is awake and alert in no acute distress. 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 Currently he is resting quite comfortably in bed. Currently maintaining O2 saturations in the 90s on 5 L/m per nasal cannula. He is afebrile. Hemodynamically stable. Blood culture reveals no growth. Continues on DuoNeb inhalations, Pulmicort and Perforomist inhalations, IV Solu-Medrol. Empiric antibiotics in the form of Levaquin. Taj oDerm patch is in place. Objective - Vital Signs Vital signs: Vital Signs Temp 97.9 F 04/14/20 08:00 Pulse 88 04/14/20 11:10 Resp 18 04/14/20 08:00 BP 117/64 04/14/20 08:00 Pulse Ox 93 L 04/14/20 08:00 Intake & Output 04/13/20 04/14/20 04/14/20 18:59 06:59 18:59 Intake Total 520 240 Output Total 500 900 Balance 20 -660 Intake: IV 160 Sodium Chloride 0.9% 1, 160 000 ml @ 20 mls/hr IV . Q24H [facility] Rx#:[id number] Oral 360 240 Output: Urine 500 900 Other: Voiding Method Toilet Toilet Toilet Urinal # Voids 2 - Exam GENERAL EXAM: Alert, pleasant 74-year-old gentleman, on 5 L nasal cannula, co mfortable in no apparent distress. HEAD: Normocephalic. EYES: Normal reaction of pupils, equal size. NOSE: Clear with pink turbinates. THROAT: No erythema or exudates. NECK: No masses, no JVD. CHEST: No chest wall deformity. LUNGS: Equal air entry with bilateral end expiratory wheeze, diminished. CVS: S1 and S2 normal with no audible murmur, regular rhythm. ABDOMEN: No hepatosplenomegaly, normal bowel sounds, no guarding or rigidity. SPINE: No scoliosis or deformity SKIN: No rashes CENTRAL NERVOUS SYSTEM: No focal deficits, tone is normal in all 4 extremities. EXTREMITIES: There is no peripheral edema. No clubbing, no cyanosis. Peripheral pulses are intact. - Labs CBC & Chem 7: 04/11/20 08:38 04/11/20 09:15 Labs: Microbiology - Last 24 Hours (Table) 04/11/20 09:15 Blood Culture - Preliminary Blood No Growth after 72 hours Assessment and Plan Assessment: Acute hypoxemic respiratory failure secondary to COPD exacerbation. Severe COPD, with an FEV1 of 31%. Chronic hypoxemic respiratory failure, currently on home O2 at 3 L. History of ongoing tobacco use with nicotine addiction. Probable purulent tracheobronchitis, as well as resolving pneumonia right midl slime and right upper lobe. History of hyperlipidemia. Prior history of MRSA pneumonia. History of solitary pulmonary nodule, left upper lobe, 9 mm. History of hepatitis C. Thoracic aortic aneurysm. Plan: The patient was seen and evaluated by Dr. Sherman Continue the current treatment plan for now Again educated regarding the importance of complete smoking cessation NicoDerm patches in place Increase his activity as tolerated Titrate down the FiO2 as tolerated We'll continue to follow I, the cosigning physician, performed a history & physical examination of the patient. Lungs sounds with bilateral end expiratory wheeze, diminished. Maintaining good O2 saturations in the 90s on 5 L/m per nasal cannula. I discussed the assessment and plan of care with my nurse practitioner, Joi Bustamante. I attest to the above note as dictated by her.
[2020-04-14] MEDS: FAMOTIDINE 20 MG TAB PO PRN (14:48)
[2020-04-14] MEDS: traMADol 50 MG TAB PO PRN (14:58)
[2020-04-14 17:02] LABS: Glucose,Whole Blood 119 mg/dL (75-99)
--- NOTE | 2020-04-14 18:10 | PN ---
PROGRESS NOTE CHIEF COMPLAINT: Exacerbation of COPD and respiratory failure. HISTORY OF PRESENT ILLNESS: This gentleman is still quite weak and dyspneic. PHYSICAL EXAMINATION: He has extensive rales and rhonchi throughout, and particularly there are decreased breath sounds at both bases. Cardiac exam demonstrates sinus tachycardia. IMPRESSION: 1. Acute respiratory failure. 2. Exacerbation of chronic obstructive pulmonary disease. 3. Right lower lobe pneumonitis. PLAN: Continue with current program and increased activity until he is stable enough to be discharged. MMODL / IJN: [id number] /
[2020-04-15] MEDS: IPRATROPIUM-ALBUTEROL 3 ML NEB INHALATION PRN (00:15)
[2020-04-15] MEDS: methylPREDNISolone SOD SUCCI 125 MG/2 ML VIAL IV SCH ×4 (06:06→23:09)
[2020-04-15 07:31] LABS: Glucose,Whole Blood 121 mg/dL (75-99)
[2020-04-15] MEDS: FORMOTEROL FUMARATE 20 MCG/2 ML NEBU INHALATION SCH (07:53)
[2020-04-15] MEDS: BUDESONIDE 1 MG/2 ML NEBU INHALATION SCH (07:53)
[2020-04-15] MEDS: IPRATROPIUM-ALBUTEROL 3 ML NEB INHALATION SCH ×4 (07:53→20:59)
[2020-04-15] MEDS ORDERED: FUROSEMIDE 10 MG/ML 4 ML VIAL IV STA (09:18)
[2020-04-15] MEDS ORDERED: ALPRAZolam 0.25 MG TAB PO PRN (09:19)
[2020-04-15] MEDS: KETOTIFEN 0.025% OPHTH DROPS 5 ML BTL BOTH EYES SCH ×2 (09:41→20:34)
--- NOTE | 2020-04-15 09:50 | XR ---
EXAMINATION TYPE: XR chest 1V portable DATE OF EXAM: 04/15/2020 HISTORY: Shortness of breath. COMPARISON: 04/11/2020 TECHNIQUE: Single view of the chest is submitted. FINDINGS: Demonstrated are scattered senescent parenchymal change. Patchy infiltrate right upper lobe persists although is much improved. The heart is stable. Hilar and mediastinal structures are within normal limits. Degenerative changes are seen of the dorsal spine. IMPRESSION: 1. Patchy infiltrate right upper lobe persists although is much improved.
[2020-04-15] MEDS: NICOTINE 21MG/24HR PATCH TRANSDERM SCH (10:49)
[2020-04-15] MEDS: MULTIVITAMINS, THERA 1 EACH TAB PO SCH (10:50)
[2020-04-15] MEDS: DOCUSATE 100 MG CAP PO SCH ×2 (10:50→20:33)
[2020-04-15] MEDS: LEVOFLOXACIN 500 MG TAB PO SCH (10:50)
[2020-04-15] MEDS: FLUoxetine HCL 20 MG CAP PO SCH (10:50)
[2020-04-15] MEDS: NAPROXEN 250 MG TAB PO SCH ×2 (10:51→20:33)
[2020-04-15] MEDS: OLANZapine 2.5 MG TAB PO SCH ×3 (10:52→23:09)
[2020-04-15] MEDS ORDERED: ENALAPRILAT 1.25 MG/ML 1 ML VIAL IVP STA (11:56)
[2020-04-15] MEDS: SPIRONOLACTONE 25 MG TAB PO SCH (12:55)
[2020-04-15] MEDS: LOSARTAN 50 MG TAB PO SCH (12:55)
--- NOTE | 2020-04-15 13:15 | CT ---
EXAMINATION TYPE: CT chest angio for PE DATE OF EXAM: 04/15/2020 COMPARISON: 09/05/2018 HISTORY: Elevated d-dimer. Shortness of breath. CT DLP: 246.3 mGycm CONTRAST: CT chest with contrast and 3D reconstruction with MIP imaging is performed with IV Contrast, patient injected with 100 mL of Isovue 370. Contrast-enhanced CT of the chest was performed through the course of the pulmonary arteries with gris g and mediastinal window settings submitted. 3D reconstruction with MIP imaging was also performed. PULMONARY ARTERIES: The pulmonary arteries and their major tributaries are patent. I do not see yoon dence for sizable filling defect to suggest pulmonary embolic process. LUNGS: Postinflammatory change right upper lobe. Severe emphysematous changes. No evidence for atelec tasis. No pulmonary nodule or mass is detected. No pleural effusion. MEDIASTINUM: Thoracic aorta is of normal caliber,however, evaluation is limited given timing of the contrast bolus. If there is concern for thoracic aortic pathology consider JOMAR. Correlate clinicall y . The heart is not enlarged. No evidence for mediastinal mass. No mediastinal lymph nodes greater than 1cm. HILAR STRUCTURES: No evidence for mass. No hilar lymph nodes greater than 1 cm. UPPER ABDOMEN: No significant abnormality is seen. IMPRESSION: 1. No evidence for Pulmonary embolism at this time. 2. Postinflammatory change right upper lobe. Severe emphysematous changes.
--- NOTE | 2020-04-15 13:16 | P.PN ---
Subjective Progress Note Date: 04/15/20 Principal diagnosis: Acute exacerbation of chronic obstructive pulmonary disease 74-year-old male, that we saw in the emergency department. The patient has a well-established history of COPD, and apparently sees my partner in the office. He apparently has an FEV1 that is 31% of predicted. He does have chronic hypoxemic respiratory failure and does use oxygen 24/7. Unfortunately, he still smokes at least a half a pack a day. He admits it freely. He comes in with complaints of increasing shortness of breath over about 3 or 4 days prior to admission. In addition, he is coughing and wheezing. He is producing yellow/green phlegm. He denies any fever or chills. He does apparently have some left-sided chest discomfort. The patient was seen in the emergency room. His primary care provider is Dr. Gerber Grissom. His medical history includes severe COPD, hyperlipidemia, chronic hypoxemic respiratory failure, methicillin-resistant staph aureus pneumonia, solitary pulmonary nodule, thoracic aortic aneurysm, chronic hepatitis C, among other diagnoses. Current ly, the patient is feeling a bit better currently than he did when he first came in. He is on O2 at 2 L. He's not getting any IV fluids. His white count is 12, hemoglobin 12.4, hematocrit 37, and a platelet count 190,000. PT, INR, and PTT all normal. Sodium 135, potassium 4.6, chlorides 97, CO2 31, anion gap 7, BUN 26, and creatinine 1.04. Chest x-ray shows some patchy abnormalities in the right midlung and right upper lobe, which are improved compared to prior chest x-ray. His prior admission was from January 19 through January 25, and at that time, he was diagnosed with a right-sided pneumonia. I actually saw him in consultation. Progress note dated 04/12/2020. 74-year-old male who we saw yesterday in the emergency department. He has a history of very severe COPD. He has stage III/stage IV disease, with an FEV1 that is apparently 31% of predicted. He also has chronic hypoxemic respiratory failure. He does use oxygen at home on a chronic basis. Unfortunately, the patient continues to smoke cigarettes and came into the emergency room complaining of increasing shortness of breath, cough, wheezing, chest tightness, and yellow/green phlegm production. He is feeling a bit better today. In addition, he has a history of hyperlipidemia, chronic hypoxemic respiratory ally lure, methicillin-resistant staph aureus pneumonia, solitary pulmonary nodule, thoracic aortic aneurysm, and chronic hepatitis C. The patient has no new labs ordered for today. Chest x-ray was one that was done in the emergency department on April 11. Medications have been reviewed. The patient is feeling a bit better. He does feel less short of breath. His chest x-ray from admission shows evidence of patchy infiltrates in the right midlung and right upper lobe, which are improved from his previous x-rays, and his prior admission to the hospital back in early January. The patient is seen today 04/13/2020 in follow-up on the regular medical floor. He is currently resting comfortably in bed. Awake and alert in no acute distress. He is maintaining O2 saturation in the 90s on 5 L/m per nasal cannula. He is somewhat tremorous and shaky today. NicoDerm patch is in place. Denies alcohol use. Blood cultures reveal no growth. He remains on Levaquin. DuoNeb inhalations, Pulmicort and Perforomist inhalations, IV Solu-Medrol. Patient is seen today 04/14/2020 in follow-up on the regular medical floor. He is awake and alert in no acute distress. 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 Currently he is resting quite comfortably in bed. Currently maintaining O2 saturations in the 90s on 5 L/m per nasal cannula. He is afebrile. Hemodynamically stable. Blood culture reveals no growth. Continues on DuoNeb inhalations, Pulmicort and Perforomist inhalations, IV Solu-Medrol. Empiric antibiotics in the form of Levaquin. Taj oDerm patch is in place. The patient is seen today 04/15/2020 follow-up on the regular medical floor. He is currently resting quite comfortably in bed. Awake and alert in no acute distress. He did feel he was having some reaction to suspected Perforomist. He was having complaints of chest discomfort. Troponin negative. ProBNP 1890. D- dimer 1.30. CT angiogram was ordered per medicine. Chest x-ray reveals patchy infiltrate in the right upper lobe. Improving. Blood culture reveals no walt wth. He has since been switched to Symbicort, continue DuoNeb inhalations, he is on 4 L nasal cannula. Remains on IV Solu-Medrol. NicoDerm patches in place. Objective - Vital Signs Vital signs: Vital Signs Temp 97.9 F 04/15/20 12:43 Pulse 107 H 04/15/20 12:58 Resp 22 04/15/20 12:43 BP 134/76 04/15/20 12:43 Pulse Ox 90 L 04/15/20 12:58 Intake & Output 04/14/20 04/15/20 04/15/20 18:59 06:59 18:59 Intake Total 480 50 Output Total 1700 1350 Balance -1220 -1300 Intake: Oral 480 50 Output: Urine 1700 1350 Other: Voiding Method Toilet Toilet Urinal Urinal # Voids 1 1 - Exam GENERAL EXAM: Alert, pleasant 74-year-old gentleman, on 4 L nasal cannula, comfortable in no apparent distress. HEAD: Normocephalic. EYES: Normal reaction of pupils, equal size. NOSE: Clear with pink turbinates. THROAT: No erythema or exudates. NECK: No masses, no JVD. CHEST: No chest wall deformity. LUNGS: Equal air entry with bilateral end expiratory wheeze, diminished. CVS: S1 and S2 normal with no audible murmur, regular rhythm. ABDOMEN: No hepatosplenomegaly, normal bowel sounds, no guarding or rigidity. SPINE: No scoliosis or deformity SKIN: No rashes CENTRAL NERVOUS SYSTEM: No focal deficits, tone is normal in all 4 extremities. EXTREMITIES: There is no peripheral edema. No clubbing, no cyanosis. Peripheral pulses are intact. - Labs CBC & Chem 7: 04/11/20 08:38 04/11/20 09:15 Labs: Abnormal Lab Results - Last 24 Hours (Table) 04/14/20 04/15/20 04/15/20 Range/Units 17:01 07:30 09:38 D-Dimer 1.30 H (<0.60) mg/L FEU POC Glucose (mg/dL) 119 H 121 H (75-99) mg/dL Microbiology - Last 24 Hours (Table) 04/11/20 09:15 Blood Culture - Preliminary Blood No Growth after 96 hours Assessment and Plan Assessment: Acute hypoxemic respiratory failure secondary to COPD exacerbation. Severe COPD, with an FEV1 of 31%. Chronic hypoxemic respiratory failure, currently on home O2 at 3 L. History of ongoing tobacco use with nicotine addiction. Probable purulent tracheobronchitis, as well as resolving pneumonia right midlung and right upper lobe. History of hyperlipidemia. Prior history of MRSA pneumonia. History of solitary pulmonary nodule, left upper lobe, 9 mm. History of hepatitis C. Thoracic aortic aneurysm. Plan: The patient was seen and evaluated by Dr. Sherman Pulmicort and Perforomist were discontinued. On Symbicort. Again educated regarding the importance of complete smoking cessation NicoDerm patch is in place Increase his activity as tolerated Titrate down the FiO2 as tolerated We'll continue to follow I, the cosigning physician, performed a history & physical examination of the patient. Lungs sounds with bilateral end expiratory wheeze, diminished. Maintaining good O2 saturations in the 90s on 4 L/m per nasal cannula. I discussed the assessment and plan of care with my nurse practitioner, Joi Bustamante. I attest to the above note as dictated by her.
[2020-04-15] MEDS: traMADol 50 MG TAB PO PRN (15:08)
[2020-04-15] MEDS: FUROSEMIDE 40 MG TAB PO SCH (16:49)
--- NOTE | 2020-04-15 17:56 | ECHOF ---
Referral Reason:elevated BNP MEASUREMENTS -------- HEIGHT: 175.3 cm WEIGHT: 68.0 kg BP: 134/76 RVIDd: 3.5 cm (< 3.3) IVSd: 1.2 cm (0.6 - 1.1) LVIDd: 4.5 cm (3.9 - 5.3) LVPWd: 1.2 cm (0.6 - 1.1) IVSs: 1.5 cm LVIDs: 3.1 cm LVPWs: 1.6 cm LA Diam: 2.8 cm (2.7 - 3.8) Ao Diam: 4.3 cm (2.0 - 3.7) AV Cusp: 1.7 cm (1.5 - 2.6) MV E Johnie: 1.12 m/s MV DecT: 112 ms MV A Johnie: 0.62 m/s MV E/A Ratio: 1.81 RAP: 5.00 mmHg RVSP: 37.58 mmHg FINDINGS -------- Resting tachycardia (HR>100bpm). This was a technically adequate study. The left ventricular size is normal. There is borderline concentric left ventricular hypertrophy. Overall left ventricular systolic function is low-normal with, an EF between 50 - 55 %. The right ventricle is mildly enlarged. The left atrium is normal in size. The right atrium is normal in size. Interatrial and interventricular septum intact. There is mild aortic valve sclerosis. Trace amount of aortic regurgitation. The mitral valve is normal. Mild tricuspid regurgitation present. There is mild pulmonary hypertension. The right ventricular systolic pressure, as measured by Doppler, is 37.58mmHg. There is no pulmonic regurgitation present. The aortic root is dilated measuring 4.3cm. Normal inferior vena cava with normal inspiratory collapse consistent with estimated right atrial pre ssure of 5 mmHg. There is no pericardial effusion. CONCLUSIONS -------- 1. The left ventricular size is normal. 2. There is borderline concentric left ventricular hypertrophy. 3. Overall left ventricular systolic function is low-normal with, an EF between 50 - 55 %. 4. The right ventricle is mildly enlarged. 5. There is mild aortic valve sclerosis. 6. Trace amount of aortic regurgitation. 7. Mild tricuspid regurgitation present. 8. There is mild pulmonary hypertension. 9. The right ventricular systolic pressure, as measured by Doppler, is 37.58mmHg. 10. The aortic root is dilated measuring 4.3cm. 11. There is no pericardial effusion. IT APPLICATIONS DEVELOPER: Serena Reyna RDCS
[2020-04-15] MEDS: FAMOTIDINE 20 MG TAB PO PRN (18:16)
--- NOTE | 2020-04-15 18:58 | PN ---
PROGRESS NOTE CHIEF COMPLAINT: Right lower lobe pneumonitis and exacerbation of COPD. HISTORY OF PRESENT ILLNESS: This gentleman suddenly got into difficulty this morning with elevated blood pressure and acute respiratory failure. The A-team was called. He is struggling at the present time. PHYSICAL EXAMINATION: His entire body is flushed. Breath sounds are extremely poor with rales throughout. Cardiac exam demonstrates sinus tachycardia. The abdomen is flat and soft. IMPRESSION: 1. Acute respiratory distress. 2. Chronic obstructive pulmonary disease. 3. Right lower lobe pneumonitis. 4. Hypertension. PLAN: 1. D-dimer and BNP. 2. IV Lasix. 3. Chest x-ray. 4. EKG. 5. Troponin. 6. Change updraft to Xopenex. 7. Cardiology consult. 8. Patient wants to be resuscitated if he arrests, but not placed on a ventilator. MMLAITH / CLARKE: [id number] /
[2020-04-15] MEDS: SYMBICORT 160-4.5 MCG INHALER INHALATION SCH (20:59)
[2020-04-16] MEDS: methylPREDNISolone SOD SUCCI 125 MG/2 ML VIAL IV SCH ×4 (06:10→23:40)
[2020-04-16] MEDS: FAMOTIDINE 20 MG TAB PO PRN ×2 (06:10→19:32)
[2020-04-16] MEDS: SYMBICORT 160-4.5 MCG INHALER INHALATION SCH ×2 (07:09→19:45)
[2020-04-16] MEDS: IPRATROPIUM-ALBUTEROL 3 ML NEB INHALATION SCH ×4 (07:09→19:45)
[2020-04-16] MEDS: SODIUM CHLORIDE 0.9% 1,000 ML IV SCH ×2 (09:14→14:48)
[2020-04-16] MEDS: DOCUSATE 100 MG CAP PO SCH ×2 (09:20→19:29)
[2020-04-16] MEDS: FLUoxetine HCL 20 MG CAP PO SCH (09:20)
[2020-04-16] MEDS: FUROSEMIDE 40 MG TAB PO SCH (09:21)
[2020-04-16] MEDS: KETOTIFEN 0.025% OPHTH DROPS 5 ML BTL BOTH EYES SCH ×2 (09:21→19:30)
[2020-04-16] MEDS: LEVOFLOXACIN 500 MG TAB PO SCH (09:21)
[2020-04-16] MEDS: NAPROXEN 250 MG TAB PO SCH ×2 (09:22→19:33)
[2020-04-16] MEDS: MULTIVITAMINS, THERA 1 EACH TAB PO SCH (09:22)
[2020-04-16] MEDS: LOSARTAN 50 MG TAB PO SCH (09:22)
[2020-04-16] MEDS: SPIRONOLACTONE 25 MG TAB PO SCH (09:23)
[2020-04-16] MEDS: OLANZapine 2.5 MG TAB PO SCH ×3 (09:23→19:29)
[2020-04-16] MEDS: NICOTINE 21MG/24HR PATCH TRANSDERM SCH (09:36)
--- NOTE | 2020-04-16 11:08 | P.PN ---
Subjective Progress Note Date: 04/16/20 Principal diagnosis: Acute exacerbation of chronic obstructive pulmonary disease 74-year-old male, that we saw in the emergency department. The patient has a well-established history of COPD, and apparently sees my partner in the office. He apparently has an FEV1 that is 31% of predicted. He does have chronic hypoxemic respiratory failure and does use oxygen 24/7. Unfortunately, he still smokes at least a half a pack a day. He admits it freely. He comes in with complaints of increasing shortness of breath over about 3 or 4 days prior to admission. In addition, he is coughing and wheezing. He is producing yellow/green phlegm. He denies any fever or chills. He does apparently have some left-sided chest discomfort. The patient was seen in the emergency room. His primary care provider is Dr. Gerber Grissom. His medical history includes severe COPD, hyperlipidemia, chronic hypoxemic respiratory failure, methicillin-resistant staph aureus pneumonia, solitary pulmonary nodule, thoracic aortic aneurysm, chronic hepatitis C, among other diagnoses. Current ly, the patient is feeling a bit better currently than he did when he first came in. He is on O2 at 2 L. He's not getting any IV fluids. His white count is 12, hemoglobin 12.4, hematocrit 37, and a platelet count 190,000. PT, INR, and PTT all normal. Sodium 135, potassium 4.6, chlorides 97, CO2 31, anion gap 7, BUN 26, and creatinine 1.04. Chest x-ray shows some patchy abnormalities in the right midlung and right upper lobe, which are improved compared to prior chest x-ray. His prior admission was from January 19 through January 25, and at that time, he was diagnosed with a right-sided pneumonia. I actually saw him in consultation. Progress note dated 04/12/2020. 74-year-old male who we saw yesterday in the emergency department. He has a history of very severe COPD. He has stage III/stage IV disease, with an FEV1 that is apparently 31% of predicted. He also has chronic hypoxemic respiratory failure. He does use oxygen at home on a chronic basis. Unfortunately, the patient continues to smoke cigarettes and came into the emergency room complaining of increasing shortness of breath, cough, wheezing, chest tightness, and yellow/green phlegm production. He is feeling a bit better today. In addition, he has a history of hyperlipidemia, chronic hypoxemic respiratory ally lure, methicillin-resistant staph aureus pneumonia, solitary pulmonary nodule, thoracic aortic aneurysm, and chronic hepatitis C. The patient has no new labs ordered for today. Chest x-ray was one that was done in the emergency department on April 11. Medications have been reviewed. The patient is feeling a bit better. He does feel less short of breath. His chest x-ray from admission shows evidence of patchy infiltrates in the right midlung and right upper lobe, which are improved from his previous x-rays, and his prior admission to the hospital back in early January. The patient is seen today 04/13/2020 in follow-up on the regular medical floor. He is currently resting comfortably in bed. Awake and alert in no acute distress. He is maintaining O2 saturation in the 90s on 5 L/m per nasal cannula. He is somewhat tremorous and shaky today. NicoDerm patch is in place. Denies alcohol use. Blood cultures reveal no growth. He remains on Levaquin. DuoNeb inhalations, Pulmicort and Perforomist inhalations, IV Solu-Medrol. Patient is seen today 04/14/2020 in follow-up on the regular medical floor. He is awake and alert in no acute distress. 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 Currently he is resting quite comfortably in bed. Currently maintaining O2 saturations in the 90s on 5 L/m per nasal cannula. He is afebrile. Hemodynamically stable. Blood culture reveals no growth. Continues on DuoNeb inhalations, Pulmicort and Perforomist inhalations, IV Solu-Medrol. Empiric antibiotics in the form of Levaquin. Taj oDerm patch is in place. The patient is seen today 04/15/2020 follow-up on the regular medical floor. He is currently resting quite comfortably in bed. Awake and alert in no acute distress. He did feel he was having some reaction to suspected Perforomist. He was having complaints of chest discomfort. Troponin negative. ProBNP 1890. D- dimer 1.30. CT angiogram was ordered per medicine. Chest x-ray reveals patchy infiltrate in the right upper lobe. Improving. Blood culture reveals no walt wth. He has since been switched to Symbicort, continue DuoNeb inhalations, he is on 4 L nasal cannula. Remains on IV Solu-Medrol. NicoDerm patches in place. This patient is seen today 04/16/2020 in follow-up on the regular medical floor. He is awake and alert in no acute distress. Currently resting quite comfortably in bed. Maintaining O2 saturations in the 90s on 4 L/m per nasal cannula. She's been afebrile. Hemodynamically stable. He remains on DuoNeb inhalations, Symbicort, IV Solu-Medrol. Empiric antibiotics in form of Levaquin. Habitrol patch in place. Objective - Vital Signs Vital signs: Vital Signs Temp 98.0 F 04/16/20 07:30 Pulse 101 H 04/16/20 07:30 Resp 20 04/16/20 08:00 BP 128/75 04/16/20 07:30 Pulse Ox 89 L 04/16/20 07:30 Intake & Output 04/15/20 04/16/20 04/16/20 18:59 06:59 18:59 Intake Total 50 350 240 Output Total 1950 1000 Balance -1900 -650 240 Weight 68.039 kg Intake: Oral 50 350 240 Output: Urine 1950 1000 Other: Voiding Method Toilet Toilet Toilet Urinal Urinal Urinal # Voids 2 # Bowel Movements 1 1 - Exam GENERAL EXAM: Alert, pleasant 74-year-old gentleman, on 4 L nasal cannula, comfortable in no apparent distress. HEAD: Normocephalic. EYES: Normal reaction of pupils, equal size. NOSE: Clear with pink turbinates. THROAT: No erythema or exudates. NECK: No masses, no JVD. CHEST: No chest wall deformity. LUNGS: Equal air entry with bilateral end expiratory wheeze, diminished. CVS: S1 and S2 normal with no audible murmur, regular rhythm. ABDOMEN: No hepatosplenomegaly, normal bowel sounds, no guarding or rigidity. SPINE: No scoliosis or deformity SKIN: No rashes CENTRAL NERVOUS SYSTEM: No focal deficits, tone is normal in all 4 extremities. EXTREMITIES: There is no peripheral edema. No clubbing, no cyanosis. Peripheral pulses are intact. - Labs CBC & Chem 7: 04/11/20 08:38 04/11/20 09:15 Labs: Microbiology - Last 24 Hours (Table) 04/11/20 09:15 Blood Culture - Preliminary Blood No Growth after 96 hours Assessment and Plan Assessment: Acute hypoxemic respiratory failure secondary to COPD exacerbation. Severe COPD, with an FEV1 of 31%. Chronic hypoxemic respiratory failure, currently on home O2 at 3 L. History of ongoing tobacco use with nicotine addiction. Probable purulent tracheobronchitis, as well as resolving pneumonia right midlung and right upper lobe. History of hyperlipidemia. Prior history of MRSA pneumonia. History of solitary pulmonary nodule, left upper lobe, 9 mm. History of hepatitis C. Thoracic aortic aneurysm. Plan: The patient was seen and evaluated by Dr. Sherman Continue current treatment plan Again educated regarding the importance of complete smoking cessation NicoDerm patch is in place We'll continue to follow I, the cosigning physician, performed a history & physical examination of the patient. Lungs sounds with bilateral end expiratory wheeze, diminished. Ma intaining good O2 saturations in the 90s on 4 L/m per nasal cannula. I discussed the assessment and plan of care with my nurse practitioner, Joi Bustamante. I attest to the above note as dictated by her.
--- NOTE | 2020-04-16 11:52 | P.CRDCN ---
History of Present Illness Consult date: 04/16/20 Requesting physician: Gerber Grissom Reason for Consult (text): BNP 1889 Chief complaint: worsening shortness of breath, cough History of present illness: Pleasant 74-year-old gentleman with history of COPD, FEV1 of 31% predicted on last PFT, current every day smoker, and thoracic aortic aneurysm which according to the patient has been followed by Dr. Murrieta and has been stable for several years. She follows regularly with Dr. Lit Grissom who is his primary care physician but has had no cardiac evaluation in the past. Patient initially presented to the hospital on for with complaints of worsening shortness of breath over 3-4 day period with worsening cough and sputum production. He was admitted and treated for acute exacerbation COPD, purulent tracheobronchitis and recent right-sided pneumonia. We were asked to see the patient in consultation due to an abnormal BNP drawn yesterday which came back to be 1889 with a BNP of 100 on admission. He underwent an echocardiogram with Doppler done yesterday which showed low normal LV systolic function with an ejection fraction of 50-55% with mildly enlarged RV, trace AI, mild MR and mild pulmonary hypertension with an aortic root of 4.[address] of the chest was done yesterday as well due to an elevated d-dimer which showed no evidence of PE with post inflammatory changes of the right upper lobe and severe emphysematous changes. Chest x-ray done yesterday showed patchy infiltrate right upper lobe persists although it is much improved. Laboratory values on admission showed a sodium of 135, BUN 26 and creatinine 1.04 with no repeat drawn since admission. Troponins negative 21 drawn on for and 1 done yesterday. Admission labs show white blood cell count of 12,000 and a hemoglobin of 12.4. On examination patient is resting comfortably in bed he feels his breathing is improved significantly today. He has no complaints of orthopnea, chest discomfort, edema, dizziness, palpitations or lightheadedness. Vital signs are stable but he is tachycardic likely secondary to underlying lung disease. She was initiated on Lasix 40 mg by mouth daily and Aldactone 25 mg by mouth daily 5. Primary yesterday. He remains on IV Solu-Medrol and nebulized treatments. 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 History of Any Multi-Drug Resistant Organisms: MRSA Date of last positivie culture/infection: 08/27/18 MDRO Source:: BRONCH WASH Past Surgical History: Appendectomy, Back Surgery, Joint Replacement Additional Past Surgical History / Comment(s): Lumbar laminectomy/fusion, bilateral total hip replacements, bronchoscopy, colonoscopy. Past Anesthesia/Blood Transfusion Reactions: No Reported Reaction Additional Past Anesthesia/Blood Transfusion Reaction / Comment(s): Pt received blood with hip surgery Smoking Status: Current every day smoker - Past Family History Father Family Medical History: Myocardial Infarction (CT) Additional Family Medical History / Comment(s): Father of a CT at the age of 70yrs. Mother Family Medical History: No Reported History Additional Family Medical History / Comment(s): Pt states mother was healthy Medications and Allergies Home Medications Medication Instructions Recorded Confirmed Type Ergocalciferol [Vitamin D2 50,000 unit PO Q30D 08/17/18 04/11/20 History (DRISDOL)] Tiotropium [place] [Spiriva] 1 cap INHALATION RT-DAILY 08/17/18 04/11/20 History traMADol HCL [Ultram] 50 mg PO BID PRN 08/17/18 04/11/20 History FLUoxetine HCL [PROzac] 20 mg PO DAILY #30 cap 10/04/18 04/11/20 Rx Docusate [Colace] 100 mg PO BID #60 cap 10/08/18 04/11/20 Rx Fluticasone Propion/Salmeterol 1 puff INHALATION RT-DAILY 05/23/19 04/11/20 History [Wixela 500-50 Inhub] Albuterol Sulfate [Ventolin HFA] 2 puff INHALATION RT-Q6H PRN 01/20/20 04/11/20 History Famotidine [Pepcid] 20 mg PO BID PRN 01/20/20 04/11/20 History Multivitamins, Thera [Multivitamin 1 tab PO DAILY 01/20/20 04/11/20 History (formulary)] Naproxen 500 mg PO BID 01/20/20 04/11/20 History OLANZapine [ZyPREXA] 2.5 mg PO TID 01/20/20 04/11/20 History Olopatadine HCl [Pataday] 1 drop BOTH EYES BID 01/20/20 04/11/20 History Allergies Allergy/AdvReac Type Severity Reaction Status Date / Time No Known Allergies Allergy Verified 04/11/20 09:02 Physical Exam Vitals: Vital Signs Temp Pulse Pulse Resp BP Pulse Ox 04/16/20 11:18 102 H 04/16/20 11:08 100 04/16/20 08:00 20 04/16/20 07:30 98.0 F 101 H 20 128/75 89 L 04/16/20 07:22 110 H 04/16/20 07:09 108 H 04/16/20 02:37 98.1 F 105 H 18 125/79 90 L 04/15/20 21:12 100 04/15/20 21:00 104 H 04/15/20 19:32 97.8 F 101 H 18 124/76 91 L 04/15/20 16:41 98.4 F 114 H 20 147/75 89 L 04/15/20 15:58 104 H 04/15/20 15:46 100 04/15/20 12:58 107 H 90 L 04/15/20 12:43 97.9 F 106 H 22 134/76 88 L 04/15/20 12:00 84 04/15/20 11:46 84 Intake and Output 04/15/20 04/16/20 04/16/20 22:59 06:59 14:59 Intake Total 350 240 Output Total 900 700 Balance -550 -700 240 Intake: Oral 350 240 Output: Urine 900 700 Other: Voiding Method Toilet Toilet Urinal Urinal # Voids 2 # Bowel Movements 1 1 PHYSICAL EXAMINATION: This is a 74-year-old male in no apparent distress at the time of my examination. VITAL SIGNS: Blood pressure 124/76, heart rate 101, respirations 18, temp 97.8F. Patient is 91 % on 4 liters via nasal. HEENT: Head is atraumatic, normocephalic. Pupils are equal, round. Sclerae anicteric. Conjunctivae are clear. Mucous membranes of the mouth are moist. Neck is supple. There is no elevated jugular venous pressure. No carotid bruit is heard. CHEST EXAMINATION: Lungs reveal significantly diminished air entry bilaterally. Respirations even and nonlabored. HEART EXAMINATION: Heart regular, positive S1 and S2. No S3. No S4. No clicks, rubs or murmurs. ABDOMEN: Soft, nontender. Bowel sounds are heard. No organomegaly noted. EXTREMITIES: 2+ peripheral pulses with no evidence of peripheral edema and no calf tenderness noted. NEUROLOGIC EXAMINATION: Patient is awake, alert and oriented x3. Results 04/11/20 08:38 04/11/20 09:15 Current Medications Generic Name Dose Route Start Last Admin Trade Name Freq PRN Reason Stop Dose Admin Albuterol/Ipratropium 3 ml 04/11/20 20:00 04/16/20 11:07 Ipratropium-Albuterol 3 Ml Neb INHALATION 3 ml RT-QID JOHNIE Administration Albuterol/Ipratropium 3 ml 04/11/20 18:20 04/15/20 00:15 Ipratropium-Albuterol 3 Ml Neb INHALATION 3 ml RT-Q2H PRN Administration Shortness Of Breath Or Wheezing Alprazolam 0.25 mg 04/15/20 09:19 04/15/20 09:40 Alprazolam 0.25 Mg Tab PO 0.25 mg Q8H PRN Administration Anxiety Budesonide/Formoterol Fumarate 2 puff 04/15/20 20:00 04/16/20 07:09 Symbicort 160-4.5 Mcg Inhaler INHALATION 2 puff RT-BID JOHNIE Administration Docusate Sodium 100 mg 04/11/20 21:00 04/16/20 09:20 Docusate 100 Mg Cap PO 100 mg BID JOHNIE Administration Ergocalciferol 1,250 mcg 04/18/20 09:00 Ergocalciferol 1,250 Mcg (50,000 Iu) Capsule PO Q30D JOHNIE Famotidine 20 mg 04/11/20 11:40 04/16/20 06:10 Famotidine 20 Mg Tab PO 20 mg BID PRN Administration GI Upset Fluoxetine HCl 20 mg 04/12/20 09:00 04/16/20 09:20 Fluoxetine Hcl 20 Mg Cap PO 20 mg DAILY JOHNIE Administration Furosemide 40 mg 04/15/20 12:00 04/16/20 09:21 Furosemide 40 Mg Tab PO 40 mg DAILY JOHNIE Administration Sodium Chloride 1,000 mls @ 20 mls/hr 04/11/20 11:45 04/16/20 09:14 Saline 0.9% IV Not Given .Q24H JOHNIE Ketotifen Fumarate 1 drops 04/11/20 21:00 04/16/20 09:21 Ketotifen 0.025% Ophth Drops 5 Ml Btl BOTH EYES 1 drops BID JOHNIE Administration Levofloxacin 500 mg 04/12/20 09:00 04/16/20 09:21 Levofloxacin 500 Mg Tab PO 04/19/20 09:01 500 mg DAILY JOHNIE Administration Losartan Potassium 50 mg 04/15/20 12:00 04/16/20 09:22 Losartan 50 Mg Tab PO 50 mg DAILY JOHNIE Administration Methylprednisolone Sodium Succinate 60 mg 04/11/20 12:00 04/16/20 06:10 Methylprednisolone Sod Succi 125 Mg/2 Ml Vial IV 60 mg Q6HR JOHNIE Administration Multivitamins 1 each 04/12/20 09:00 04/16/20 09:22 Multivitamins, Thera 1 Each Tab PO 1 each DAILY JOHNIE Administration Naproxen 500 mg 04/11/20 21:00 04/16/20 09:22 Naproxen 250 Mg Tab PO 500 mg BID JOHNIE Administration Nicotine 1 patch 04/12/20 12:36 04/16/20 09:36 Nicotine 21mg/24hr Patch TRANSDERM 1 patch DAILY JOHNIE Administration Olanzapine 2.5 mg 04/11/20 16:00 04/16/20 09:23 Olanzapine 2.5 Mg Tab PO 2.5 mg TID JOHNIE Administration Spironolactone 25 mg 04/15/20 12:00 04/16/20 09:23 Spironolactone 25 Mg Tab PO 25 mg DAILY JOHNIE Administration Tramadol HCl 50 mg 04/11/20 11:40 04/15/20 15:08 Tramadol 50 Mg Tab PO 50 mg BID PRN Administration Pain Intake and Output 04/15/20 04/16/20 04/16/20 22:59 06:59 14:59 Intake Total 350 240 Output Total 900 700 Balance -550 -700 240 Intake: Oral 350 240 Output: Urine 900 700 Other: Voiding Method Toilet Toilet Urinal Urinal # Voids 2 # Bowel Movements 1 1 04/11/20 08:38 04/11/20 09:15 Assessment and Plan Assessment: #1 Symptoms are progressively worsening shortness of breath and productive cough likely secondary to mostly acute exacerbation of COPD with some mild element of underlying acute and chronic diastolic heart failure #2 severe COPD with FEV1 of 31% predicted #3 chronic hypoxic respiratory failure currently on 3 L home O2 #4 chronic tobacco use #5 probable purulent tracheobronchitis as well as resolving pneumonia #6 hyperlipidemia #7 history of MRSA pneumonia #8 history of pulmonary nodule #9 thoracic aortic aneurysm, stable #10 history of hepatitis C Plan: From software educator perspective we will stop Aldactone and continue by mouth Lasix. Will obtain labs including renal function and electrolytes. We'll continue to follow the patient for further recommendations accordingly. REED MAKER note has been reviewed, I agree with a documented findings and plan of care. Patient was seen and examined.
--- NOTE | 2020-04-16 14:04 | PN ---
PROGRESS NOTE CHIEF COMPLAINT: Pneumonitis and acute respiratory failure. HISTORY OF PRESENT ILLNESS: This gentleman is doing much better today. He is much less short of breath. PHYSICAL EXAMINATION: Breath sounds are still poor throughout with scattered rales and rhonchi, but they are improved over yesterday. Cardiac exam is normal. The abdomen is soft and nontender. IMPRESSION: 1. Acute respiratory failure. 2. Exacerbated chronic obstructive pulmonary disease. 3. Right lower lobe pneumonitis. 4. Congestive heart failure. PLAN: Continue with current program and start to increase his activity again and look toward a discharge plan. MMODL / IJN: [id number] /
[2020-04-16 14:09] LABS: ALT 42 U/L (4-49); AST 40 U/L (17-59); African American GFR (CKD) 65 (>60 ml/min/1.73 sqM); Albumin 3.9 g/dL (3.5-5.0); Albumin/Globulin Ratio 1.3; Alkaline Phosphatase 46 U/L (38-126); Blood Urea Nitrogen 37 mg/dL (9-20); Calcium 9.4 mg/dL (8.4-10.2); Chloride 86 mmol/L (98-107); Glucose 116 mg/dL (74-99); Non-African American GFR(CKD) 57 (>60 ml/min/1.73 sqM); Potassium 3.6 mmol/L (3.5-5.1); Sodium 135 mmol/L (137-145); Total Bilirubin 0.7 mg/dL (0.2-1.3); Total Protein 6.9 g/dL (6.3-8.2)
[2020-04-16 14:15] LABS: Anion Gap 12 mmol/L; Carbon Dioxide 37 mmol/L (22-30)
[2020-04-17] MEDS: methylPREDNISolone SOD SUCCI 125 MG/2 ML VIAL IV SCH ×4 (05:11→23:16)
[2020-04-17] MEDS: IPRATROPIUM-ALBUTEROL 3 ML NEB INHALATION SCH ×4 (06:53→19:51)
[2020-04-17] MEDS: SYMBICORT 160-4.5 MCG INHALER INHALATION SCH ×2 (06:54→19:51)
[2020-04-17] MEDS: NAPROXEN 250 MG TAB PO SCH ×2 (08:14→20:53)
[2020-04-17] MEDS: OLANZapine 2.5 MG TAB PO SCH ×3 (08:15→20:53)
[2020-04-17] MEDS: KETOTIFEN 0.025% OPHTH DROPS 5 ML BTL BOTH EYES SCH ×2 (08:15→20:54)
[2020-04-17] MEDS: FLUoxetine HCL 20 MG CAP PO SCH (08:15)
[2020-04-17] MEDS: FUROSEMIDE 40 MG TAB PO SCH (08:15)
[2020-04-17] MEDS: DOCUSATE 100 MG CAP PO SCH ×2 (08:15→20:54)
[2020-04-17] MEDS: NICOTINE 21MG/24HR PATCH TRANSDERM SCH (08:15)
[2020-04-17] MEDS: LEVOFLOXACIN 500 MG TAB PO SCH (08:15)
[2020-04-17] MEDS: LOSARTAN 50 MG TAB PO SCH (08:15)
[2020-04-17] MEDS: MULTIVITAMINS, THERA 1 EACH TAB PO SCH (08:15)
[2020-04-17] MEDS: SODIUM CHLORIDE 0.9% 1,000 ML IV SCH (11:22)
--- NOTE | 2020-04-17 11:24 | P.PN ---
Subjective Progress Note Date: 04/17/20 This is a pleasant 74-year-old gentleman with history of COPD, FEV1 of 31% predicted on last PFT, current every day smoker, and thoracic aortic aneurysm which according to the patient has been followed by Dr. Murrieta and has been stable for several years. She follows regularly with Dr. Lit Grissom who is his primary care physician but has had no cardiac evaluation in the past. Patient initially presented to the hospital on for very with complaints of worsening shortness of breath over 3-4 day period with worsening cough and sputum production. He was admitted and treated for acute exacerbation COPD, purulent tracheobronchitis and recent right-sided pneumonia. We were asked to see the patient in consultation due to an abnormal BNP drawn yesterday which came back to be 1890 with a BNP of 100 on admission. He underwent an echocardiogram with Doppler done yesterday which showed low normal LV systolic function with an ejection fraction of 50-55% with mildly enlarged RV, trace AI, mild MR and mild pulmonary hypertension with an aortic root of 4.[address] of the chest was done yesterday as well due to an elevated d-dimer which showed no evidence of PE with post inflammatory changes of the right upper lobe and severe emphysematous changes. Chest x-ray done yesterday showed patchy infiltrate right upper lobe persists although it is much improved. Laboratory values on admission showed a sodium of 135, BUN 26 and creatinine 1.04 with no repeat drawn since admission. Troponins negative 21 drawn on for very and 1 done yesterday. Admission labs show white blood cell count of 12,000 and a hemoglobin of 12.4. On examination patient is resting comfortably in bed he feels his breathing is improved significantly today. He has no complaints of orthopnea, chest discomfort, edema, dizziness, palpitations or lightheadedness. Vital signs are stable but he is tachycardic likely secondary to underlying lung disease. He was initiated on Lasix 40 mg by mouth daily and Aldactone 25 mg by mouth daily by Primary yesterday. He remains on IV Solu-Medrol and nebulized tr eatments. 04/17/20 The patient was seen and examined this morning resting comfortably in bed. He is overall feeling better. He feels his breathing has improved. Labs this morning showed a sodium of 135, potassium 3.5 and BUN of 37 and creatinine 1.26 which are up from admission. Aldactone was discontinued yesterday. Objective - Vital Signs Vital signs: Vital Signs Temp 98.0 F 04/17/20 07:58 Pulse 108 H 04/17/20 11:18 Resp 18 04/17/20 08:00 BP 125/79 04/17/20 07:58 Pulse Ox 93 L 04/17/20 07:58 Intake & Output 04/16/20 04/17/20 04/17/20 18:59 06:59 18:59 Intake Total 1470 160 240 Output Total 1400 Balance 70 160 240 Intake: IV 160 Sodium Chloride 0.9% 1, 160 000 ml @ 20 mls/hr IV . Q24H JOHNIE Rx#:[id number] Oral 1470 240 Output: Urine 1400 Other: Voiding Method Toilet Toilet Urinal Urinal # Voids 1 # Bowel Movements 1 # Emes[place] 1 - Exam PHYSICAL EXAMINATION: HEENT: Head is atraumatic, normocephalic. Pupils equal, round. Neck is supple. There is no elevated jugular venous pressure. HEART EXAMINATION: Heart sounds regular, S1 and S2 normal. No murmur or gallop heard. CHEST EXAMINATION: Lungs reveal significantly diminished air entry bilaterally. No chest wall tenderness is noted on palpation or with deep breathing. ABDOMEN: Soft, nontender. Bowel sounds are heard. No organomegaly noted. EXTREMITIES: 2+ peripheral pulses with no evidence of peripheral edema and no calf tenderness noted. NEUROLOGIC patient is awake, alert and oriented x3. . - Labs CBC & Chem 7: 04/11/20 08:38 04/16/20 13:43 Labs: Abnormal Lab Results - Last 24 Hours (Table) 04/16/20 Range/Units 13:43 Sodium 135 L (137-145) mmol/L Chloride 86 L (98-107) mmol/L Carbon Dioxide 37 H (22-30) mmol/L BUN 37 H (9-20) mg/dL Creatinine 1.26 H (0.66-1.25) mg/dL Glucose 116 H (74-99) mg/dL Microbiology - Last 24 Hours (Table) 04/11/20 09:15 Blood Culture - Preliminary Blood No Growth after 120 hours Assessment and Plan Assessment: #1 Symptoms are progressively worsening shortness of breath and productive cough likely secondary to mostly acute exacerbation of COPD with some mild element of underlying acute and chronic diastolic heart failure #2 severe COPD with FEV1 of 31% predicted #3 chronic hypoxic respiratory failure currently on 3 L home O2 #4 chronic tobacco use #5 probable purulent tracheobronchitis as well as resolving pneumonia #6 hyperlipidemia #7 history of MRSA pneumonia #8 history of pulmonary nodule #9 thoracic aortic aneurysm, stable #10 history of hepatitis C Plan: From burlap man perspective medications were reviewed and we will continue the same. Continue to monitor renal function and electrolytes. We will continue to follow the patient provide further recommendations accordingly. LINING PRINTER note has been reviewed, I agree with a documented findings and plan of care. Patient was seen and examined.
[2020-04-17] MEDS: traMADol 50 MG TAB PO PRN (12:15)
--- NOTE | 2020-04-17 13:32 | P.PN ---
Subjective Progress Note Date: 04/17/20 Principal diagnosis: Acute exacerbation of chronic obstructive pulmonary disease 74-year-old male, that we saw in the emergency department. The patient has a well-established history of COPD, and apparently sees my partner in the office. He apparently has an FEV1 that is 31% of predicted. He does have chronic hypoxemic respiratory failure and does use oxygen 24/7. Unfortunately, he still smokes at least a half a pack a day. He admits it freely. He comes in with complaints of increasing shortness of breath over about 3 or 4 days prior to admission. In addition, he is coughing and wheezing. He is producing yellow/green phlegm. He denies any fever or chills. He does apparently have some left-sided chest discomfort. The patient was seen in the emergency room. His primary care provider is Dr. Gerber Grissom. His medical history includes severe COPD, hyperlipidemia, chronic hypoxemic respiratory failure, methicillin-resistant staph aureus pneumonia, solitary pulmonary nodule, thoracic aortic aneurysm, chronic hepatitis C, among other diagnoses. Current ly, the patient is feeling a bit better currently than he did when he first came in. He is on O2 at 2 L. He's not getting any IV fluids. His white count is 12, hemoglobin 12.4, hematocrit 37, and a platelet count 190,000. PT, INR, and PTT all normal. Sodium 135, potassium 4.6, chlorides 97, CO2 31, anion gap 7, BUN 26, and creatinine 1.04. Chest x-ray shows some patchy abnormalities in the right midlung and right upper lobe, which are improved compared to prior chest x-ray. His prior admission was from January 19 through January 25, and at that time, he was diagnosed with a right-sided pneumonia. I actually saw him in consultation. Progress note dated 04/12/2020. 74-year-old male who we saw yesterday in the emergency department. He has a history of very severe COPD. He has stage III/stage IV disease, with an FEV1 that is apparently 31% of predicted. He also has chronic hypoxemic respiratory failure. He does use oxygen at home on a chronic basis. Unfortunately, the patient continues to smoke cigarettes and came into the emergency room complaining of increasing shortness of breath, cough, wheezing, chest tightness, and yellow/green phlegm production. He is feeling a bit better today. In addition, he has a history of hyperlipidemia, chronic hypoxemic respiratory ally lure, methicillin-resistant staph aureus pneumonia, solitary pulmonary nodule, thoracic aortic aneurysm, and chronic hepatitis C. The patient has no new labs ordered for today. Chest x-ray was one that was done in the emergency department on April 11. Medications have been reviewed. The patient is feeling a bit better. He does feel less short of breath. His chest x-ray from admission shows evidence of patchy infiltrates in the right midlung and right upper lobe, which are improved from his previous x-rays, and his prior admission to the hospital back in early January. The patient is seen today 04/13/2020 in follow-up on the regular medical floor. He is currently resting comfortably in bed. Awake and alert in no acute distress. He is maintaining O2 saturation in the 90s on 5 L/m per nasal cannula. He is somewhat tremorous and shaky today. NicoDerm patch is in place. Denies alcohol use. Blood cultures reveal no growth. He remains on Levaquin. DuoNeb inhalations, Pulmicort and Perforomist inhalations, IV Solu-Medrol. Patient is seen today 04/14/2020 in follow-up on the regular medical floor. He is awake and alert in no acute distress. 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 Currently he is resting quite comfortably in bed. Currently maintaining O2 saturations in the 90s on 5 L/m per nasal cannula. He is afebrile. Hemodynamically stable. Blood culture reveals no growth. Continues on DuoNeb inhalations, Pulmicort and Perforomist inhalations, IV Solu-Medrol. Empiric antibiotics in the form of Levaquin. Taj oDerm patch is in place. The patient is seen today 04/15/2020 follow-up on the regular medical floor. He is currently resting quite comfortably in bed. Awake and alert in no acute distress. He did feel he was having some reaction to suspected Perforomist. He was having complaints of chest discomfort. Troponin negative. ProBNP 1890. D- dimer 1.30. CT angiogram was ordered per medicine. Chest x-ray reveals patchy infiltrate in the right upper lobe. Improving. Blood culture reveals no walt wth. He has since been switched to Symbicort, continue DuoNeb inhalations, he is on 4 L nasal cannula. Remains on IV Solu-Medrol. NicoDerm patches in place. This patient is seen today 04/16/2020 in follow-up on the regular medical floor. He is awake and alert in no acute distress. Currently resting quite comfortably in bed. Maintaining O2 saturations in the 90s on 4 L/m per nasal cannula. She's been afebrile. Hemodynamically stable. He remains on DuoNeb inhalations, Symbicort, IV Solu-Medrol. Empiric antibiotics in form of Levaquin. Habitrol patch in place. The patient is seen today 04/17/2020 in follow-up on the regular medical floor. Currently resting comfortably in bed. Awake and alert in no acute distress. Breathing bit easier today compared to yesterday. 18 O2 saturation in the 90s on 4 L/m per nasal cannula. Remains on DuoNeb inhalations, Symbicort, V Solu-Medrol. Antibiotics in the form of Levaquin. Objective - Vital Signs Vital signs: Vital Signs Temp 98.0 F 04/17/20 07:58 Pulse 108 H 04/17/20 11:26 Resp 18 04/17/20 08:00 BP 125/79 04/17/20 07:58 Pulse Ox 93 L 04/17/20 07:58 Intake & Output 04/16/20 04/17/20 04/17/20 18:59 06:59 18:59 Intake Total 1470 160 240 Output Total 1400 Balance 70 160 240 Intake: IV 160 Sodium Chloride 0.9% 1, 160 000 ml @ 20 mls/hr IV . Q24H [facility] Rx#:[id number] Oral 1470 240 Output: Urine 1400 Other: Voiding Method Toilet Toilet Urinal Urinal # Voids 1 # Bowel Movements 1 # Emeses 1 - Exam GENERAL EXAM: Alert, pleasant 74-year-old gentleman, on 4 L nasal cannula, comfortable in no apparent distress. HEAD: Normocephalic. EYES: Normal reaction of pupils, equal size. NOSE: Clear with pink turbinates. THROAT: No erythema or exudates. NECK: No masses, no JVD. CHEST: No chest wall deformity. LUNGS: Equal air entry with bilateral end expiratory wheeze, diminished. CVS: S1 and S2 normal with no audible murmur, regular rhythm. ABDOMEN: No hepatosplenomegaly, normal bowel sounds, no guarding or rigidity. SPINE: No scoliosis or deformity SKIN: No rashes CENTRAL NERVOUS SYSTEM: No focal deficits, tone is normal in all 4 extremities. EXTREMITIES: There is no peripheral edema. No clubbing, no cyanosis. Peripheral pulses are intact. - Labs CBC & Chem 7: 04/11/20 08:38 04/16/20 13:43 Labs: Abnormal Lab Results - Last 24 Hours (Table) 04/16/20 Range/Units 13:43 Sodium 135 L (137-145) mmol/L Chloride 86 L (98-107) mmol/L Carbon Dioxide 37 H (22-30) mmol/L BUN 37 H (9-20) mg/dL Creatinine 1.26 H (0.66-1.25) mg/dL Glucose 116 H (74-99) mg/dL Microbiology - Last 24 Hours (Table) 04/11/20 09:15 Blood Culture - Final Blood No Growth after 144 hours Assessment and Plan Assessment: 1 Acute hypoxemic respiratory failure secondary to COPD exacerbation. 2 Severe COPD, with an FEV1 of 31%. 3 Chronic hypoxemic respiratory failure, currently on home O2 at 3 L. 4 History of ongoing tobacco use with nicotine addiction. 5 Probable purulent tracheobronchitis, as well as resolving pneumonia right midlung and right upper lobe. 6 History of hyperlipidemia. 7 Prior history of MRSA pneumonia. 8 History of solitary pulmonary nodule, left upper lobe, 9 mm. 9 History of hepatitis C. 10 Thoracic aortic aneurysm. Plan: The patient was seen and evaluated by Dr. Sherman Continue current treatment plan Again educated regarding the importance of complete smoking cessation Probable discharge in a.m. We'll continue to follow I, the cosigning physician, performed a history & physical examination of the patient. Lungs sounds with bilateral end expiratory wheeze, diminished. Maintaining good O2 saturations in the 90s on 4 L/m per nasal cannula. I discussed the assessment and plan of care with my nurse practitioner, Joi Bustamante. I attest to the above note as dictated by her.
[2020-04-17] MEDS: FAMOTIDINE 20 MG TAB PO PRN (17:45)
[2020-04-18] MEDS: methylPREDNISolone SOD SUCCI 125 MG/2 ML VIAL IV SCH ×2 (05:01→12:13)
[2020-04-18] MEDS: OLANZapine 2.5 MG TAB PO SCH ×3 (08:39→21:55)
[2020-04-18] MEDS: NAPROXEN 250 MG TAB PO SCH (08:39)
[2020-04-18] MEDS: LOSARTAN 50 MG TAB PO SCH (08:40)
[2020-04-18] MEDS: MULTIVITAMINS, THERA 1 EACH TAB PO SCH (08:40)
[2020-04-18] MEDS: LEVOFLOXACIN 500 MG TAB PO SCH (08:40)
[2020-04-18] MEDS: FUROSEMIDE 40 MG TAB PO SCH (08:40)
[2020-04-18] MEDS: FLUoxetine HCL 20 MG CAP PO SCH (08:40)
[2020-04-18] MEDS: DOCUSATE 100 MG CAP PO SCH ×2 (08:40→21:52)
[2020-04-18] MEDS: NICOTINE 21MG/24HR PATCH TRANSDERM SCH (08:41)
[2020-04-18] MEDS: KETOTIFEN 0.025% OPHTH DROPS 5 ML BTL BOTH EYES SCH ×2 (08:41→21:54)
[2020-04-18] MEDS: IPRATROPIUM-ALBUTEROL 3 ML NEB INHALATION SCH ×4 (08:51→21:12)
[2020-04-18] MEDS: SYMBICORT 160-4.5 MCG INHALER INHALATION SCH ×2 (08:51→21:12)
[2020-04-18] MEDS ORDERED: ERGOCALCIFEROL 1,250 MCG (50,000 IU) CAPSULE PO SCH (09:00)
[2020-04-18 09:30] LABS: African American GFR (CKD) 45.7 (60.0-200.0); Albumin 3.5 g/dL (3.80-4.90); Albumin/Globulin Ratio 1.4 (1.60-3.17); Anion Gap 5.2 mmol/L (4.00-12.00); BUN/Creat Ratio 33.53 Ratio (12.00-20.00); Carbon Dioxide 38.8 mmol/L (21.6-31.8); Globulin 2.5 g/dL (1.6-3.3); Non-African American GFR(CKD) 39.4 (60.0-200.0); Potassium 4.2 mmol/L (3.5-5.5); Total Bilirubin 0.4 mg/dL (0.3-1.2)
[2020-04-18] MEDS: SODIUM CHLORIDE 0.9% 1,000 ML IV SCH ×2 (11:56→13:47)
[2020-04-18] MEDS: FAMOTIDINE 20 MG TAB PO PRN (12:13)
--- NOTE | 2020-04-18 13:33 | P.PN ---
Subjective Progress Note Date: 04/18/20 Acute exacerbation of chronic obstructive pulmonary disease 74-year-old male, that we saw in the emergency department. The patient has a well-established history of COPD, and apparently sees my partner in the office. He apparently has an FEV1 that is 31% of predicted. He does have chronic hypoxemic respiratory failure and does use oxygen /. Unfortunately, he still smokes at least a half a pack a day. He admits it freely. He comes in with complaints of increasing shortness of breath over about 3 or 4 days prior to admission. In addition, he is coughing and wheezing. He is producing yello w/green phlegm. He denies any fever or chills. He does apparently have some left-sided chest discomfort. The patient was seen in the emergency room. His primary care provider is Dr. Gerber Grissom. His medical history includes severe COPD, hyperlipidemia, chronic hypoxemic respiratory failure, methicillin- resistant staph aureus pneumonia, solitary pulmonary nodule, thoracic aortic aneurysm, chronic hepatitis C, among other diagnoses. Currently, the patient is feeling a bit better currently than he did when he first came in. He is on O2 at 2 L. He's not getting any IV fluids. His white count is 12, hemoglobin 12.4, hematocrit 37, and a platelet count 190,000. PT, INR, and PTT all normal. Sodium 135, potassium 4.6, chlorides 97, CO2 31, anion gap 7, BUN 26, and creatinine 1.04. Chest x-ray shows some patchy abnormalities in the right midlung and right upper lobe, which are improved compared to prior chest x-ray. His prior admission was from January 19 through January 25, and at that time, he was diagnosed with a right-sided pneumonia. I actually saw him in consultation. Progress note dated 04/12/2020. 74-year-old male who we saw yesterday in the emergency department. He has a history of very severe COPD. He has stage III/stage IV disease, with an FEV1 that is apparently 31% of predicted. He also has chronic hypoxemic respiratory failure. He does use oxygen at home on a chronic basis. Unfortunately, the patient continues to smoke cigarettes and came into the emergency room complaining of increasing shortness of breath, cough, wheezing, chest tightness, and yellow/green phlegm production. He is feeling a bit better today. In addition, he has a history of hyperlipidemia, chronic hypoxemic respiratory failure, methicillin-resistant staph aureus pneumonia, solitary pulmonary nodule, thoracic aortic aneurysm, and chronic hepatitis C. The patient has no new labs ordered for today. Chest x-ray was one that was done in the emergency department on April 11. Medications have been reviewed. The patient is feeling a bit better. He does feel less short of breath. His chest x-ray from admission shows evidence of patchy infiltrates in the right midlung and right upper lobe, which are improved from his previous x-rays, and his prior admission to the hospital back in early January. The patient is seen today 04/13/2020 in follow-up on the regular medical floor. He is currently resting comfortably in bed. Awake and alert in no acute distre ss. He is maintaining O2 saturation in the 90s on 5 L/m per nasal cannula. He is somewhat tremorous and shaky today. NicoDerm patch is in place. Denies alcohol use. Blood cultures reveal no growth. He remains on Levaquin. DuoNeb inhalations, Pulmicort and Perforomist inhalations, IV Solu-Medrol. Patient is seen today 04/14/2020 in follow-up on the regular medical floor. He is awake and alert in no acute distress. 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 Currently he is resting quite comfortably in bed. Currently maintaining O2 saturations in the 90s on 5 L/m per nasal cannula. He is afebrile. Hemodynamically stable. Blood culture reve als no growth. Continues on DuoNeb inhalations, Pulmicort and Perforomist inhalations, IV Solu-Medrol. Empiric antibiotics in the form of Levaquin. NicoDerm patch is in place. The patient is seen today 04/15/2020 follow-up on the regular medical floor. He is currently resting quite comfortably in bed. Awake and alert in no acute distress. He did feel he was having some reaction to suspected Perforomist. He was having complaints of chest discomfort. Troponin negative. ProBNP 1890. D-dimer 1.30. CT angiogram was ordered per medicine. Chest x-ray reveals patchy infiltrate in the right upper lobe. Improving. Blood culture reveals no growth. He has since been switched to Symbicort, continue DuoNeb inhalations, he is on 4 L nasal cannula. Remains on IV Solu-Medrol. NicoDerm patches in place. This patient is seen today 04/16/2020 in follow-up on the regular medical floor. He is awake and alert in no acute distress. Currently resting quite comfortably in bed. Maintaining O2 saturations in the 90s on 4 L/m per nasal cannula. She's been afebrile. Hemodynamically stable. He remains on DuoNeb inhalations, Symbicort, IV Solu-Medrol. Empiric antibiotics in form of Levaq uin. Habitrol patch in place. The patient is seen today 04/17/2020 in follow-up on the regular medical floor. Currently resting comfortably in bed. Awake and alert in no acute distress. Breathing bit easier today compared to yesterday. 18 O2 saturation in the 90s on 4 L/m per nasal cannula. Remains on DuoNeb inhalations, Symbicort, V Solu- Medrol. Antibiotics in the form of Levaquin. 04/18/2020, the patient is feeling better. His been here for almost a week with an acute COPD exacerbation. Currently is on oxygen down to 4 L and later on down to 3 L with a pulse ox of 98%. Mild sinus tachycardia still present. No electrolytes from today show a BUN of 57 with a creatinine of 1.7 and his serum bicarb is 38. LFTs are within normal limits. Pro-calcitonin level at time of admission was 0.15. The CT angiogram that was done on 04/15/2020 showed no evidence of any pulmonary embolism and there was some postinflammatory changes in the right upper lobe and addition to severe emphysema.The patient remains on Symbicort for now. The patient is on IV Solu-Medrol 60 mg every 6 hours. He is on DuoNeb nebulized treatments around the clock and he is also on empiric antibiotic coverage with Levaquin. Cardiology saw the patient and the patient was diagnosed having active diastolic heart failure and he was advised to give him a combination of Lasix and Aldactone. He is currently on Lasix 40 mg by mouth daily. Aldactone did not. The list. Objective - Vital Signs Vital signs: Vital Signs Temp 97.9 F 04/18/20 07:32 Pulse 106 H 04/18/20 12:06 Resp 18 04/18/20 12:06 BP 129/76 04/18/20 07:32 Pulse Ox 98 04/18/20 08:51 Intake & Output 04/17/20 04/18/20 04/18/20 18:59 06:59 18:59 Intake Total 240 160 240 Output Total 450 Balance 240 160 -210 Intake: Intake, IV Titration 160 Amount Sodium Chloride 0.9% 1, 160 000 ml @ 20 mls/hr IV . Q24H COUNTS INCLUDE 234 BEDS AT THE [facility] Rx#:[id number] Oral 240 240 Output: Urine 450 Other: Voiding Method Toilet Urinal # Voids 1 0 # Bowel Movements 1 # Emeses 1 - Exam GENERAL EXAM: Alert, pleasant 74-year-old gentleman, on 3 L nasal cannula, comfortable in no apparent distress. HEAD: Normocephalic. EYES: Normal reaction of pupils, equal size. NOSE: Clear with pink turbinates. THROAT: No erythema or exudates. NECK: No masses, no JVD. CHEST: No chest wall deformity. LUNGS: Equal air entry with bilateral end expiratory wheeze, diminished. CVS: S1 and S2 normal with no audible murmur, regular rhythm. ABDOMEN: No hepatosplenomegaly, normal bowel sounds, no guarding or rigidity. SPINE: No scoliosis or deformity SKIN: No rashes CENTRAL NERVOUS SYSTEM: No focal deficits, tone is normal in all 4 extremities. EXTREMITIES: There is no peripheral edema. No clubbing, no cyanosis. Peripheral pulses are intact. - Labs CBC & Chem 7: 04/11/20 08:38 04/18/20 05:09 Labs: Abnormal Lab Results - Last 24 Hours (Table) 04/18/20 Range/Units 05:09 Chloride 94 L (96-109) mmol/L Carbon Dioxide 38.8 H (21.6-31.8) mmol/L BUN 57.0 H (9.0-27.0) mg/dL Creatinine 1.7 H (0.6-1.5) mg/dL Est GFR (CKD-EPI)AfAm 45.7 L (60.0-200.0) Est GFR (CKD-EPI)NonAf 39.4 L (60.0-200.0) BUN/Creatinine Ratio 33.53 H (12.00-20.00) Ratio Glucose 127 H (70-110) mg/dL Alkaline Phosphatase 39 L (41-126) U/L Total Protein 6.0 L (6.2-8.2) g/dL Albumin 3.50 L (3.80-4.90) g/dL Albumin/Globulin Ratio 1.40 L (1.60-3.17) g/dL Microbiology - Last 24 Hours (Table) 04/11/20 09:15 Blood Culture - Final Blood No Growth after 144 hours Assessment and Plan Plan: 1 Acute hypoxemic respiratory failure secondary to COPD exacerbation. Pulmonary status improved and the patient is feeling less short of breath as the patient was treated aggressively with combination of bronchodilators and steroids and antibiotics over the past 1 week. He'll be started on a prednisone burst taper. 2 Severe COPD, with an FEV1 of 31%. 3 Chronic hypoxemic respiratory failure, currently on home O2 at 3 L. 4 History of ongoing tobacco use with nicotine addiction. 5 Probable purulent tracheobronchitis, as well as resolving pneumonia right midlung and right upper lobe. 6 History of hyperlipidemia. 7 Prior history of MRSA pneumonia. 8 History of solitary pulmonary nodule, left upper lobe, 9 mm. 9 History of hepatitis C. 10 Thoracic aortic aneurysm. 11 acute kidney injury, consider contrast nephropathy and the patient was on a combination of nonsteroidal anti-inflammatory medications in the form of Naprosyn and he was also taking Lasix and he is also on Cozaar. Plan: Start the patient on normal saline at the rate of 75 mL an hour Stop the Lasix Stop nonsteroidal anti-inflammatory medications Repeat labs in a.m. Discontinue IV Solu-Medrol, the patient a prednisone burst taper We'll continue to follow. No discharge yet.
[2020-04-18] MEDS: ONDANSETRON 4 MG/2 ML VIAL IVP PRN ×2 (13:48→21:51)
--- NOTE | 2020-04-18 14:29 | P.PN ---
Subjective Progress Note Date: 04/18/20 HISTORY OF PRESENT ILLNESS: Patient examined this morning at the bedside. He denies chest pain or pressure. Denies shortness of breath. Patient's creatinine 1.7 today, up from 1.26. PHYSICAL EXAM: VITAL SIGNS: Reviewed. GENERAL: Well-developed in no acute distress. NECK: Supple. No JVD or thyromegaly LUNGS: Respirations even and unlabored. Lungs diminished bilaterally with expiratory wheezing. HEART: Regular rate and rhythm. S1 and S2 heard. EXTREMITIES: Normal range of motion. No clubbing or cyanosis. Peripheral pulses intact. No lower extremity edema ASSESSMENT: Acute exacerbation of COPD Acute exacerbation of chronic diastolic heart failure Chronic hypoxic respiratory failure on home O2 3 L Purulent tracheobronchitis as well as resolving pneumonia Hyperlipidemia Thoracic aortic aneurysm Acute kidney injury Chronic tobacco use PLAN: Aldactone discontinued over the weekend secondary to acute kidney injury Lasix discontinued secondary to JO Continue Cozaar. May discontinue if JO does not improve. Monitor kidney function Further recommendations pending patient course Nurse practitioner note has been reviewed by physician. Signing provider agrees with the documented findings, assessment, and plan of care. Objective - Vital Signs Vital signs: Vital Signs Temp 97.9 F 04/18/20 07:32 Pulse 106 H 04/18/20 12:06 Resp 18 04/18/20 12:06 BP 129/76 04/18/20 07:32 Pulse Ox 98 04/18/20 08:51 Intake & Output 04/17/20 04/18/20 04/18/20 18:59 06:59 18:59 Intake Total 240 160 240 Output Total 450 Balance 240 160 -210 Intake: Intake, IV Titration 160 Amount Sodium Chloride 0.9% 1, 160 000 ml @ 20 mls/hr IV . Q24H [facility] Rx#:[id number] Oral 240 240 Output: Urine 450 Other: Voiding Method Toilet Urinal # Voids 1 0 # Bowel Movements 1 # Emeses 1 - Labs CBC & Chem 7: 04/11/20 08:38 04/18/20 05:09 Labs: Abnormal Lab Results - Last 24 Hours (Table) 04/18/20 Range/Units 05:09 Chloride 94 L (96-109) mmol/L Carbon Dioxide 38.8 H (21.6-31.8) mmol/L BUN 57.0 H (9.0-27.0) mg/dL Creatinine 1.7 H (0.6-1.5) mg/dL Est GFR (CKD-EPI)AfAm 45.7 L (60.0-200.0) Est GFR (CKD-EPI)NonAf 39.4 L (60.0-200.0) BUN/Creatinine Ratio 33.53 H (12.00-20.00) Ratio Glucose 127 H (70-110) mg/dL Alkaline Phosphatase 39 L (41-126) U/L Total Protein 6.0 L (6.2-8.2) g/dL Albumin 3.50 L (3.80-4.90) g/dL Albumin/Globulin Ratio 1.40 L (1.60-3.17) g/dL Microbiology - Last 24 Hours (Table) 04/11/20 09:15 Blood Culture - Final Blood No Growth after 144 hours
[2020-04-19] MEDS: PANTOPRAZOLE 40 MG/10 ML VIAL IVP SCH ×2 (00:20→08:34)
[2020-04-19] MEDS: traMADol 50 MG TAB PO PRN ×2 (02:22→16:24)
[2020-04-19] MEDS: SODIUM CHLORIDE 0.9% 1,000 ML IV SCH ×3 (06:03→15:58)
[2020-04-19] MEDS: IPRATROPIUM-ALBUTEROL 3 ML NEB INHALATION SCH ×4 (08:15→20:30)
[2020-04-19] MEDS: SYMBICORT 160-4.5 MCG INHALER INHALATION SCH ×2 (08:15→20:30)
[2020-04-19] MEDS: NICOTINE 21MG/24HR PATCH TRANSDERM SCH (08:33)
[2020-04-19] MEDS: OLANZapine 2.5 MG TAB PO SCH ×3 (08:33→20:46)
[2020-04-19] MEDS: FLUoxetine HCL 20 MG CAP PO SCH (08:33)
[2020-04-19] MEDS: DOCUSATE 100 MG CAP PO SCH ×2 (08:33→20:46)
[2020-04-19] MEDS: LOSARTAN 50 MG TAB PO SCH (08:33)
[2020-04-19] MEDS: KETOTIFEN 0.025% OPHTH DROPS 5 ML BTL BOTH EYES SCH ×2 (08:34→20:47)
[2020-04-19] MEDS: MULTIVITAMINS, THERA 1 EACH TAB PO SCH (08:34)
[2020-04-19] MEDS ORDERED: predniSONE 20 MG TAB PO SCH (09:00)
[2020-04-19 09:10] LABS: Basophils # (A) 0.03 X 10*3/uL (0.00-0.10); Basophils % (A) 0.2 %; Eosinophils # (A) 0 X 10*3/uL (0.04-0.35); Eosinophils % (A) 0 %; HCT 40.1 % (39.6-50.0); HGB 13.3 g/dL (13.0-17.0); Lymphocytes # (A) 2.03 X 10*3/uL (0.90-5.00); Lymphocytes % (A) 11.7 %; MCH 29.8 pg (27.0-32.0); MCHC 33.2 g/dL (32.0-37.0); MCV 89.7 fL (80.0-97.0); Monocytes % (A) 8.1 %; Neutrophils # (A) 13.58 X 10*3/uL (1.80-7.70); Platelet Count 298 X 10*3/uL (140-440); RBC 4.47 X 10*6/uL (4.40-5.60); RDW 13.8 % (11.5-14.5); WBC 17.38 X 10*3/uL (4.50-10.00)
[2020-04-19 09:46] LABS: African American GFR (CKD) 49.2 (60.0-200.0); Anion Gap 6.1 mmol/L (4.00-12.00); Calcium 8.2 mg/dL (8.7-10.3); Carbon Dioxide 35.9 mmol/L (21.6-31.8); Non-African American GFR(CKD) 42.4 (60.0-200.0); Potassium 3.8 mmol/L (3.5-5.5)
--- NOTE | 2020-04-19 11:10 | P.PN ---
Subjective Progress Note Date: 04/19/20 HISTORY OF PRESENT ILLNESS: Patient examined this morning at the bedside. He denies chest pain or pressure. Denies shortness of breath. Patient's creatinine 1.6 today, down from 1.7 yesterday. Vital signs stable. PHYSICAL EXAM: VITAL SIGNS: Reviewed. GENERAL: Well-developed in no acute distress. NECK: Supple. No JVD or thyromegaly LUNGS: Respirations even and unlabored. Lungs diminished bilaterally with expiratory wheezing. HEART: Regular rate and rhythm. S1 and S2 heard. EXTREMITIES: Normal range of motion. No clubbing or cyanosis. Peripheral puls es intact. No lower extremity edema ASSESSMENT: Acute exacerbation of COPD Acute exacerbation of chronic diastolic heart failure Chronic hypoxic respiratory failure on home O2 3 L Purulent tracheobronchitis as well as resolving pneumonia Hyperlipidemia Thoracic aortic aneurysm Acute kidney injury Chronic tobacco use PLAN: Aldactone discontinued over the weekend secondary to acute kidney injury Continue to hold Lasix Continue Cozaar. May discontinue if JO does not improve. Monitor kidney function Further recommendations pending patient course Nurse practitioner note has been reviewed by physician. Signing provider agrees with the documented findings, assessment, and plan of care. Objective - Vital Signs Vital signs: Vital Signs Temp 97.9 F 04/19/20 07:08 Pulse 101 H 04/19/20 08:28 Resp 20 04/19/20 07:08 BP 130/78 04/19/20 07:08 Pulse Ox 94 L 04/19/20 08:15 Intake & Output 04/18/20 04/19/20 04/19/20 18:59 06:59 18:59 Intake Total 240 240 120 Output Total 850 1100 Balance -610 -860 120 Intake: Oral 240 240 120 Output: Urine 850 1100 Other: Voiding Method Toilet Urinal # Voids 2 2 # Bowel Movements 1 - Labs CBC & Chem 7: 04/19/20 05:00 04/19/20 05:00 Labs: Abnormal Lab Results - Last 24 Hours (Table) 04/19/20 04/19/20 Range/Units 05:00 05:00 WBC 17.38 H (4.50-10.00) X 10*3/uL Immature Gran # 0.34 H (0.00-0.04) X 10*3/uL Neutrophils # 13.58 H (1.80-7.70) X 10*3/uL Monocytes # 1.40 H (0.20-1.00) X 10*3/uL Eosinophils # 0 L (0.04-0.35) X 10*3/uL Carbon Dioxide 35.9 H (21.6-31.8) mmol/L BUN 56.0 H (9.0-27.0) mg/dL Creatinine 1.6 H (0.6-1.5) mg/dL Est GFR (CKD-EPI)AfAm 49.2 L (60.0-200.0) Est GFR (CKD-EPI)NonAf 42.4 L (60.0-200.0) BUN/Creatinine Ratio 35.00 H (12.00-20.00) Ratio Calcium 8.2 L (8.7-10.3) mg/dL
--- NOTE | 2020-04-19 11:42 | P.PN ---
Subjective Progress Note Date: 04/19/20 Acute exacerbation of chronic obstructive pulmonary disease 74-year-old male, that we saw in the emergency department. The patient has a well-established history of COPD, and apparently sees my partner in the office. He apparently has an FEV1 that is 31% of predicted. He does have chronic hypoxemic respiratory failure and does use oxygen /. Unfortunately, he still smokes at least a half a pack a day. He admits it freely. He comes in with complaints of increasing shortness of breath over about 3 or 4 days prior to admission. In addition, he is coughing and wheezing. He is producing yello w/green phlegm. He denies any fever or chills. He does apparently have some left-sided chest discomfort. The patient was seen in the emergency room. His primary care provider is Dr. Gerber Grissom. His medical history includes severe COPD, hyperlipidemia, chronic hypoxemic respiratory failure, methicillin- resistant staph aureus pneumonia, solitary pulmonary nodule, thoracic aortic aneurysm, chronic hepatitis C, among other diagnoses. Currently, the patient is feeling a bit better currently than he did when he first came in. He is on O2 at 2 L. He's not getting any IV fluids. His white count is 12, hemoglobin 12.4, hematocrit 37, and a platelet count 190,000. PT, INR, and PTT all normal. Sodium 135, potassium 4.6, chlorides 97, CO2 31, anion gap 7, BUN 26, and creatinine 1.04. Chest x-ray shows some patchy abnormalities in the right midlung and right upper lobe, which are improved compared to prior chest x-ray. His prior admission was from January 19 through January 25, and at that time, he was diagnosed with a right-sided pneumonia. I actually saw him in consultation. Progress note dated 04/12/2020. 74-year-old male who we saw yesterday in the emergency department. He has a history of very severe COPD. He has stage III/stage IV disease, with an FEV1 that is apparently 31% of predicted. He also has chronic hypoxemic respiratory failure. He does use oxygen at home on a chronic basis. Unfortunately, the patient continues to smoke cigarettes and came into the emergency room complaining of increasing shortness of breath, cough, wheezing, chest tightness, and yellow/green phlegm production. He is feeling a bit better today. In addition, he has a history of hyperlipidemia, chronic hypoxemic respiratory failure, methicillin-resistant staph aureus pneumonia, solitary pulmonary nodule, thoracic aortic aneurysm, and chronic hepatitis C. The patient has no new labs ordered for today. Chest x-ray was one that was done in the emergency department on April 11. Medications have been reviewed. The patient is feeling a bit better. He does feel less short of breath. His chest x-ray from admission shows evidence of patchy infiltrates in the right midlung and right upper lobe, which are improved from his previous x-rays, and his prior admission to the hospital back in early January. The patient is seen today 04/13/2020 in follow-up on the regular medical floor. He is currently resting comfortably in bed. Awake and alert in no acute distre ss. He is maintaining O2 saturation in the 90s on 5 L/m per nasal cannula. He is somewhat tremorous and shaky today. NicoDerm patch is in place. Denies alcohol use. Blood cultures reveal no growth. He remains on Levaquin. DuoNeb inhalations, Pulmicort and Perforomist inhalations, IV Solu-Medrol. Patient is seen today 04/14/2020 in follow-up on the regular medical floor. He is awake and alert in no acute distress. 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 Currently he is resting quite comfortably in bed. Currently maintaining O2 saturations in the 90s on 5 L/m per nasal cannula. He is afebrile. Hemodynamically stable. Blood culture reve als no growth. Continues on DuoNeb inhalations, Pulmicort and Perforomist inhalations, IV Solu-Medrol. Empiric antibiotics in the form of Levaquin. NicoDerm patch is in place. The patient is seen today 04/15/2020 follow-up on the regular medical floor. He is currently resting quite comfortably in bed. Awake and alert in no acute distress. He did feel he was having some reaction to suspected Perforomist. He was having complaints of chest discomfort. Troponin negative. ProBNP 1890. D-dimer 1.30. CT angiogram was ordered per medicine. Chest x-ray reveals patchy infiltrate in the right upper lobe. Improving. Blood culture reveals no growth. He has since been switched to Symbicort, continue DuoNeb inhalations, he is on 4 L nasal cannula. Remains on IV Solu-Medrol. NicoDerm patches in place. This patient is seen today 04/16/2020 in follow-up on the regular medical floor. He is awake and alert in no acute distress. Currently resting quite comfortably in bed. Maintaining O2 saturations in the 90s on 4 L/m per nasal cannula. She's been afebrile. Hemodynamically stable. He remains on DuoNeb inhalations, Symbicort, IV Solu-Medrol. Empiric antibiotics in form of Levaq uin. Habitrol patch in place. The patient is seen today 04/17/2020 in follow-up on the regular medical floor. Currently resting comfortably in bed. Awake and alert in no acute distress. Breathing bit easier today compared to yesterday. 18 O2 saturation in the 90s on 4 L/m per nasal cannula. Remains on DuoNeb inhalations, Symbicort, V Solu- Medrol. Antibiotics in the form of Levaquin. 04/18/2020, the patient is feeling better. His been here for almost a week with an acute COPD exacerbation. Currently is on oxygen down to 4 L and later on down to 3 L with a pulse ox of 98%. Mild sinus tachycardia still present. No electrolytes from today show a BUN of 57 with a creatinine of 1.7 and his serum bicarb is 38. LFTs are within normal limits. Pro-calcitonin level at time of admission was 0.15. The CT angiogram that was done on 04/15/2020 showed no evidence of any pulmonary embolism and there was some postinflammatory changes in the right upper lobe and addition to severe emphysema.The patient remains on Symbicort for now. The patient is on IV Solu-Medrol 60 mg every 6 hours. He is on DuoNeb nebulized treatments around the clock and he is also on empiric antibiotic coverage with Levaquin. Cardiology saw the patient and the patient was diagnosed having active diastolic heart failure and he was advised to give him a combination of Lasix and Aldactone. He is currently on Lasix 40 mg by mouth daily. Aldactone did not. The list. 13,021, I'm seeing the patient for a follow-up. Yesterday, I held the patient's discharge because he had developed an acute kidney injury. His creatinine was up to 1.7. Stop the Lasix. Stop the nonsteroidal anti-inflammatory medication. I give the patient IV fluids. His creatinine today is down to 1.6. He is still on losartan. He is calm and comfortable. No new complaints since yesterday. He remains on DuoNeb neb last treatment [id number], he was on IV Solu-Medrol yesterday and he will be switched to a prednisone burst taper. No signs of any fluid overload. The fluid balance is still negative of 1.4 L over the past 24 hours. Clinically is doing well. He is not throwing up. No nausea. No vomiting. No fever. Objective - Vital Signs Vital signs: Vital Signs Temp 97.9 F 04/19/20 07:08 Pulse 101 H 04/19/20 08:28 Resp 20 04/19/20 07:08 BP 130/78 04/19/20 07:08 Pulse Ox 94 L 04/19/20 08:15 Intake & Output 04/18/20 04/19/20 04/19/20 18:59 06:59 18:59 Intake Total 240 240 120 Output Total 850 1100 Balance -610 -860 120 Intake: Oral 240 240 120 Output: Urine 850 1100 Other: Voiding Method Toilet Urinal # Voids 2 2 # Bowel Movements 1 - Exam GENERAL EXAM: Alert, pleasant 74-year-old gentleman, on 3 L nasal cannula, comfortable in no apparent distress. HEAD: Normocephalic. EYES: Normal reaction of pupils, equal size. NOSE: Clear with pink turbinates. THROAT: No erythema or exudates. NECK: No masses, no JVD. CHEST: No chest wall deformity. LUNGS: Equal air entry with bilateral end expiratory wheeze, diminished. CVS: S1 and S2 normal with no audible murmur, regular rhythm. ABDOMEN: No hepatosplenomegaly, normal bowel sounds, no guarding or rigidity. SPINE: No scoliosis or deformity SKIN: No rashes CENTRAL NERVOUS SYSTEM: No focal deficits, tone is normal in all 4 extremities. EXTREMITIES: There is no peripheral edema. No clubbing, no cyanosis. Peripheral pulses are intact. - Labs CBC & Chem 7: 04/19/20 05:00 04/19/20 05:00 Labs: Abnormal Lab Results - Last 24 Hours (Table) 04/19/20 04/19/20 Range/Units 05:00 05:00 WBC 17.38 H (4.50-10.00) X 10*3/uL Immature Gran # 0.34 H (0.00-0.04) X 10*3/uL Neutrophils # 13.58 H (1.80-7.70) X 10*3/uL Monocytes # 1.40 H (0.20-1.00) X 10*3/uL Eosinophils # 0 L (0.04-0.35) X 10*3/uL Carbon Dioxide 35.9 H (21.6-31.8) mmol/L BUN 56.0 H (9.0-27.0) mg/dL Creatinine 1.6 H (0.6-1.5) mg/dL Est GFR (CKD-EPI)AfAm 49.2 L (60.0-200.0) Est GFR (CKD-EPI)NonAf 42.4 L (60.0-200.0) BUN/Creatinine Ratio 35.00 H (12.00-20.00) Ratio Calcium 8.2 L (8.7-10.3) mg/dL Assessment and Plan Plan: 1 Acute hypoxemic respiratory failure secondary to COPD exacerbation. Pulmonary status improved and the patient is feeling less short of breath as the patient was treated aggressively with combination of bronchodilators and steroids and antibiotics over the past 1 week. He'll be started on a prednisone burst taper. 2 Severe COPD, with an FEV1 of 31%. 3 Chronic hypoxemic respiratory failure, currently on home O2 at 3 L. 4 History of ongoing tobacco use with nicotine addiction. 5 Probable purulent tracheobronchitis, as well as resolving pneumonia right midlung and right upper lobe. 6 History of hyperlipidemia. 7 Prior history of MRSA pneumonia. 8 History of solitary pulmonary nodule, left upper lobe, 9 mm. 9 History of hepatitis C. 10 Thoracic aortic aneurysm. 11 acute kidney injury, consider contrast nephropathy and the patient was on a combination of nonsteroidal anti-inflammatory medications in the form of Naprosyn and he was also taking Lasix and he is also on Cozaar. The patient's kidney function is improving and his creatinine is down to 1.6 Plan: Continue normal saline at the rate of 75 mL an hour Keep Lasix on hold Stop nonsteroidal anti-inflammatory medications Repeat labs in a.m. Stopped IV Solu-Medrol and put the patient prednisone burst taper starting with 40 mg We'll continue to follow. No discharge yet. Possibly home tomorrow of the kidney function continues to improve.
[2020-04-19] MEDS: SUCRALFATE 1 GM TAB PO SCH ×3 (12:32→20:46)
--- NOTE | 2020-04-19 13:55 | PN ---
PROGRESS NOTE DATE OF SERVICE: 04/17/2020 CHIEF COMPLAINT: Exacerbation of COPD and right lower lobe pneumonia. HISTORY OF PRESENT ILLNESS: This gentleman is improving slowly. He is slightly less dyspneic. He has had no fever or chills. PHYSICAL EXAMINATION: He still has poor breath sounds with wheezing on inspiration in particular expiration and scattered rales throughout. Cardiac exam is normal. Abdomen is soft, nontender. IMPRESSION: 1. Exacerbation of chronic obstructive pulmonary disease. 2. Right lower lobe pneumonitis. 3. Dehydration. PLAN: Continue with updrafts, IV fluids and antibiotics as well as steroids. MMODL / IJN: [id number] /
--- NOTE | 2020-04-19 14:01 | PN ---
PROGRESS NOTE DATE OF SERVICE: 04/18/2020 CHIEF COMPLAINT: COPD and pneumonitis. HISTORY OF PRESENT ILLNESS: This gentleman started to have some nausea and vomiting. Nurse thought there were some flecks of blood. He has had no diarrhea, abdominal pain, melena, hematochezia, fever and chills, etc. PHYSICAL EXAMINATION: Hydration seems adequate. Color is good. Chest is the same with scattered rales and decreased breath sounds. Cardiac exam is normal. The abdomen is soft and nontender without any masses or visceromegaly. Bowel sounds are present. IMPRESSION: 1. Nausea and vomiting, etiology unknown. 2. Chronic obstructive pulmonary disease. 3. Right lower lobe pneumonitis. 4. Possible hemoptysis. PLAN: 1. Continue with IV fluids. 2. Antiemetics. 3. Review medications. 4. GI consult, if these symptoms continue. LEIA / CLARKE: [id number] /
--- NOTE | 2020-04-19 16:33 | PN ---
PROGRESS NOTE CHIEF COMPLAINT: Chest pain, COPD and right lower lobe pneumonitis. HISTORY OF PRESENT ILLNESS: This gentleman is doing a little bit better. He is not having any further vomiting. He has lost his appetite. He has not had any further vomiting. PHYSICAL EXAMINATION: Chest is clear. Cardiac exam is normal. Abdomen is soft, nontender. IMPRESSION: 1. Exacerbation of chronic obstructive pulmonary disease. 2. Right lower lobe pneumonitis. 3. Nausea and vomiting, etiology unknown. 4. Umbilical hernia. PLAN: 1. Start to take him off oral steroids. 2. Carafate 1 gram q.i.d. 3. Continue to monitor his GI symptoms while continuing to treat his COPD and pneumonia. MMODL / IJN: [id number] /
[2020-04-19] MEDS: ONDANSETRON 4 MG/2 ML VIAL IVP PRN (20:57)
[2020-04-20] MEDS: SODIUM CHLORIDE 0.9% 1,000 ML IV SCH ×2 (05:51→15:42)
[2020-04-20] MEDS: SYMBICORT 160-4.5 MCG INHALER INHALATION SCH (07:37)
[2020-04-20] MEDS: IPRATROPIUM-ALBUTEROL 3 ML NEB INHALATION SCH ×3 (07:37→15:43)
[2020-04-20] MEDS: SUCRALFATE 1 GM TAB PO SCH ×2 (08:29→12:30)
[2020-04-20] MEDS: LOSARTAN 50 MG TAB PO SCH (08:29)
[2020-04-20] MEDS: OLANZapine 2.5 MG TAB PO SCH ×2 (08:29→15:43)
[2020-04-20] MEDS: FLUoxetine HCL 20 MG CAP PO SCH (08:29)
[2020-04-20] MEDS: PANTOPRAZOLE 40 MG/10 ML VIAL IVP SCH (08:30)
[2020-04-20] MEDS: KETOTIFEN 0.025% OPHTH DROPS 5 ML BTL BOTH EYES SCH (08:30)
[2020-04-20] MEDS: MULTIVITAMINS, THERA 1 EACH TAB PO SCH (08:30)
[2020-04-20] MEDS: NICOTINE 21MG/24HR PATCH TRANSDERM SCH (08:30)
[2020-04-20] MEDS: DOCUSATE 100 MG CAP PO SCH (08:30)
[2020-04-20] MEDS ORDERED: predniSONE 20 MG TAB PO SCH ×2 (09:00→12:45)
[2020-04-20] MEDS ORDERED: predniSONE 10 MG TAB PO SCH (09:00)
--- NOTE | 2020-04-20 09:07 | P.PN ---
Subjective Progress Note Date: 04/20/20 Acute exacerbation of chronic obstructive pulmonary disease 74-year-old male, that we saw in the emergency department. The patient has a well-established history of COPD, and apparently sees my partner in the office. He apparently has an FEV1 that is 31% of predicted. He does have chronic hypoxemic respiratory failure and does use oxygen /. Unfortunately, he still smokes at least a half a pack a day. He admits it freely. He comes in with complaints of increasing shortness of breath over about 3 or 4 days prior to admission. In addition, he is coughing and wheezing. He is producing yello w/green phlegm. He denies any fever or chills. He does apparently have some left-sided chest discomfort. The patient was seen in the emergency room. His primary care provider is Dr. Gerber Grissom. His medical history includes severe COPD, hyperlipidemia, chronic hypoxemic respiratory failure, methicillin- resistant staph aureus pneumonia, solitary pulmonary nodule, thoracic aortic aneurysm, chronic hepatitis C, among other diagnoses. Currently, the patient is feeling a bit better currently than he did when he first came in. He is on O2 at 2 L. He's not getting any IV fluids. His white count is 12, hemoglobin 12.4, hematocrit 37, and a platelet count 190,000. PT, INR, and PTT all normal. Sodium 135, potassium 4.6, chlorides 97, CO2 31, anion gap 7, BUN 26, and creatinine 1.04. Chest x-ray shows some patchy abnormalities in the right midlung and right upper lobe, which are improved compared to prior chest x-ray. His prior admission was from January 19 through January 25, and at that time, he was diagnosed with a right-sided pneumonia. I actually saw him in consultation. Progress note dated 04/12/2020. 74-year-old male who we saw yesterday in the emergency department. He has a history of very severe COPD. He has stage III/stage IV disease, with an FEV1 that is apparently 31% of predicted. He also has chronic hypoxemic respiratory failure. He does use oxygen at home on a chronic basis. Unfortunately, the patient continues to smoke cigarettes and came into the emergency room complaining of increasing shortness of breath, cough, wheezing, chest tightness, and yellow/green phlegm production. He is feeling a bit better today. In addition, he has a history of hyperlipidemia, chronic hypoxemic respiratory failure, methicillin-resistant staph aureus pneumonia, solitary pulmonary nodule, thoracic aortic aneurysm, and chronic hepatitis C. The patient has no new labs ordered for today. Chest x-ray was one that was done in the emergency department on April 11. Medications have been reviewed. The patient is feeling a bit better. He does feel less short of breath. His chest x-ray from admission shows evidence of patchy infiltrates in the right midlung and right upper lobe, which are improved from his previous x-rays, and his prior admission to the hospital back in early January. The patient is seen today 04/13/2020 in follow-up on the regular medical floor. He is currently resting comfortably in bed. Awake and alert in no acute distre ss. He is maintaining O2 saturation in the 90s on 5 L/m per nasal cannula. He is somewhat tremorous and shaky today. NicoDerm patch is in place. Denies alcohol use. Blood cultures reveal no growth. He remains on Levaquin. DuoNeb inhalations, Pulmicort and Perforomist inhalations, IV Solu-Medrol. Patient is seen today 04/14/2020 in follow-up on the regular medical floor. He is awake and alert in no acute distress. 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 Currently he is resting quite comfortably in bed. Currently maintaining O2 saturations in the 90s on 5 L/m per nasal cannula. He is afebrile. Hemodynamically stable. Blood culture reve als no growth. Continues on DuoNeb inhalations, Pulmicort and Perforomist inhalations, IV Solu-Medrol. Empiric antibiotics in the form of Levaquin. NicoDerm patch is in place. The patient is seen today 04/15/2020 follow-up on the regular medical floor. He is currently resting quite comfortably in bed. Awake and alert in no acute distress. He did feel he was having some reaction to suspected Perforomist. He was having complaints of chest discomfort. Troponin negative. ProBNP 1890. D-dimer 1.30. CT angiogram was ordered per medicine. Chest x-ray reveals patchy infiltrate in the right upper lobe. Improving. Blood culture reveals no growth. He has since been switched to Symbicort, continue DuoNeb inhalations, he is on 4 L nasal cannula. Remains on IV Solu-Medrol. NicoDerm patches in place. This patient is seen today 04/16/2020 in follow-up on the regular medical floor. He is awake and alert in no acute distress. Currently resting quite comfortably in bed. Maintaining O2 saturations in the 90s on 4 L/m per nasal cannula. She's been afebrile. Hemodynamically stable. He remains on DuoNeb inhalations, Symbicort, IV Solu-Medrol. Empiric antibiotics in form of Levaq uin. Habitrol patch in place. The patient is seen today 04/17/2020 in follow-up on the regular medical floor. Currently resting comfortably in bed. Awake and alert in no acute distress. Breathing bit easier today compared to yesterday. 18 O2 saturation in the 90s on 4 L/m per nasal cannula. Remains on DuoNeb inhalations, Symbicort, V Solu- Medrol. Antibiotics in the form of Levaquin. 04/18/2020, the patient is feeling better. His been here for almost a week with an acute COPD exacerbation. Currently is on oxygen down to 4 L and later on down to 3 L with a pulse ox of 98%. Mild sinus tachycardia still present. No electrolytes from today show a BUN of 57 with a creatinine of 1.7 and his serum bicarb is 38. LFTs are within normal limits. Pro-calcitonin level at time of admission was 0.15. The CT angiogram that was done on 04/15/2020 showed no evidence of any pulmonary embolism and there was some postinflammatory changes in the right upper lobe and addition to severe emphysema.The patient remains on Symbicort for now. The patient is on IV Solu-Medrol 60 mg every 6 hours. He is on DuoNeb nebulized treatments around the clock and he is also on empiric antibiotic coverage with Levaquin. Cardiology saw the patient and the patient was diagnosed having active diastolic heart failure and he was advised to give him a combination of Lasix and Aldactone. He is currently on Lasix 40 mg by mouth daily. Aldactone did not. The list. [id number], I'm seeing the patient for a follow-up. Yesterday, I held the patient's discharge because he had developed an acute kidney injury. His creatinine was up to 1.7. Stop the Lasix. Stop the nonsteroidal anti-inflammatory medication. I give the patient IV fluids. His creatinine today is down to 1.6. He is still on losartan. He is calm and comfortable. No new complaints since yesterday. He remains on DuoNeb neb last treatment [id number], he was on IV Solu-Medrol yesterday and he will be switched to a prednisone burst taper. No signs of any fluid overload. The fluid balance is still negative of 1.4 L over the past 24 hours. Clinically is doing well. He is not throwing up. No nausea. No vomiting. No fever. Every 2020 on seeing the patient for a follow-up. Creatinine today is still pending from today.Today's creatinine was down to 1.6 and the patient was feeding well and the patient was being hydrated. COPD stable for now. The plan is to monitor his creatinine is improving he may be potentially going home today. Still awaiting for the last. He was switched to prednisone burst taper as of yesterday. He is on bronchodilators. The patient is on IV fluids. The patient is producing adequate amount of urine output. No other significant events overnight. His value was Levaquin but distended. He did have a bowel movement and he is feeling relief. No nausea. No emesis. No bloody stool. Objective - Vital Signs Vital signs: Vital Signs Temp 97.7 F 04/20/20 07:01 Pulse 96 04/20/20 07:51 Resp 18 04/20/20 07:01 BP 122/65 04/20/20 07:01 Pulse Ox 94 L 04/20/20 07:01 Intake & Output 04/19/20 04/20/20 04/20/20 18:59 06:59 18:59 Intake Total 1020 240 240 Balance 1020 240 240 Weight 68.039 kg Intake: Intake, IV Titration 900 Amount Sodium Chloride 0.9% 1, 900 000 ml @ 75 mls/hr IV . [id number] [facility] Rx#:[id number] Oral 120 240 240 Other: Voiding Method Toilet Urinal # Voids 3 - Exam GENERAL EXAM: Alert, pleasant 74-year-old gentleman, on 3 L nasal cannula, comfortable in no apparent distress. HEAD: Normocephalic. EYES: Normal reaction of pupils, equal size. NOSE: Clear with pink turbinates. THROAT: No erythema or exudates. NECK: No masses, no JVD. CHEST: No chest wall deformity. LUNGS: Equal air entry with bilateral end expiratory wheeze, diminished. CVS: S1 and S2 normal with no audible murmur, regular rhythm. ABDOMEN: No hepatosplenomegaly, normal bowel sounds, no guarding or rigidity. Patient has an umbilical hernia which is easily reducible and there are no signs of incarceration or strangulation. SPINE: No scoliosis or deformity SKIN: No rashes CENTRAL NERVOUS SYSTEM: No focal deficits, tone is normal in all 4 extremities. EXTREMITIES: There is no peripheral edema. No clubbing, no cyanosis. Peripheral pulses are intact. - Labs CBC & Chem 7: 04/19/20 05:00 04/19/20 05:00 Labs: Abnormal Lab Results - Last 24 Hours (Table) 04/19/20 04/19/20 Range/Units 05:00 05:00 WBC 17.38 H (4.50-10.00) X 10*3/uL Immature Gran # 0.34 H (0.00-0.04) X 10*3/uL Neutrophils # 13.58 H (1.80-7.70) X 10*3/uL Monocytes # 1.40 H (0.20-1.00) X 10*3/uL Eosinophils # 0 L (0.04-0.35) X 10*3/uL Carbon Dioxide 35.9 H (21.6-31.8) mmol/L BUN 56.0 H (9.0-27.0) mg/dL Creatinine 1.6 H (0.6-1.5) mg/dL Est GFR (CKD-EPI)AfAm 49.2 L (60.0-200.0) Est GFR (CKD-EPI)NonAf 42.4 L (60.0-200.0) BUN/Creatinine Ratio 35.00 H (12.00-20.00) Ratio Calcium 8.2 L (8.7-10.3) mg/dL Assessment and Plan Plan: 1 Acute hypoxemic respiratory failure secondary to COPD exacerbation. Pulmonary status improved and the patient is feeling less short of breath as the patient was treated aggressively with combination of bronchodilators and steroids and antibiotics over the past 1 week. He'll be started on a prednisone burst taper as of yesterday and currently is on 40 mg of prednisone as a part of the burst taper. 2 Severe COPD, with an FEV1 of 31%. 3 Chronic hypoxemic respiratory failure, currently on home O2 at 3 L. 4 History of ongoing tobacco use with nicotine addiction. 5 Probable purulent tracheobronchitis, as well as resolving pneumonia right midlung and right upper lobe. 6 History of hyperlipidemia. 7 Prior history of MRSA pneumonia. 8 History of solitary pulmonary nodule, left upper lobe, 9 mm. 9 History of hepatitis C. 10 Thoracic aortic aneurysm. 11 acute kidney injury, consider contrast nephropathy and the patient was on a combination of nonsteroidal anti-inflammatory medications in the form of Naprosyn and he was also taking Lasix and he is also on Cozaar. The patient's kidney function is improving and his creatinine is down to 1.6 the creatinine was 1.6 yesterday and the patient is awaiting a follow-up creatinine today., 12 umbilical hernia which is easily reducible. Plan: Continue normal saline at the rate of 75 mL an hour Keep Lasix on hold Stop nonsteroidal anti-inflammatory medications Repeat labs in a.m, Creatinine from today still pending. If improving, the patient can be potentially released home. Continue his own burst taper starting with 40 mg We'll continue to follow. Possibly home depending on his renal function.
[2020-04-20 09:58] LABS: African American GFR (CKD) 84 (>60 ml/min/1.73 sqM); Anion Gap 3 mmol/L; Blood Urea Nitrogen 38 mg/dL (9-20); Carbon Dioxide 30 mmol/L (22-30); Chloride 101 mmol/L (98-107); Glucose 94 mg/dL (74-99); Non-African American GFR(CKD) 73 (>60 ml/min/1.73 sqM); Potassium 4.7 mmol/L (3.5-5.1); Sodium 134 mmol/L (137-145)
[2020-04-20] MEDS: traMADol 50 MG TAB PO PRN (10:01)
--- NOTE | 2020-04-20 11:20 | P.PN ---
Subjective Progress Note Date: 04/20/20 HISTORY OF PRESENT ILLNESS: Patient examined this morning at the bedside. He denies chest pain or pressure. Denies shortness of breath. Patient's creatinine has normalized today at 1.03. His Lasix remains on hold. Vital signs stable. PHYSICAL EXAM: VITAL SIGNS: Reviewed. GENERAL: Well-developed in no acute distress. NECK: Supple. No JVD or thyromegaly LUNGS: Respirations even and unlabored. Lungs diminished bilaterally. HEART: Regular rate and rhythm. S1 and S2 heard. EXTREMITIES: Normal range of motion. No clubbing or cyanosis. Peripheral pulses intact. No lower extremity edema ASSESSMENT: Acute exacerbation of COPD Acute exacerbation of chronic diastolic heart failure Chronic hypoxic respiratory failure on home O2 3 L Purulent tracheobronchitis as well as resolving pneumonia Hyperlipidemia Thoracic aortic aneurysm Acute kidney injury Chronic tobacco use PLAN: Patient with resolving JO. Will continue to hold Aldactone Continue Cozaar Will resume lasix PO tomorrow at low dose of 20mg daily Patient is currently stable from a cardiac perspective Further recommendations pending patient course Nurse practitioner note has been reviewed by physician. Signing provider agrees with the documented findings, assessment, and plan of care. Objective - Vital Signs Vital signs: Vital Signs Temp 97.7 F 04/20/20 07:01 Pulse 96 04/20/20 07:51 Resp 18 04/20/20 08:00 BP 122/65 04/20/20 07:01 Pulse Ox 94 L 04/20/20 07:01 Intake & Output 04/19/20 04/20/20 04/20/20 18:59 06:59 18:59 Intake Total 1020 240 240 Balance 1020 240 240 Weight 68.039 kg Intake: Intake, IV Titration 900 Amount Sodium Chloride 0.9% 1, 900 000 ml @ 75 mls/hr IV . [id number] [facility] Rx#:[id number] Oral 120 240 240 Other: Voiding Method Toilet Urinal # Voids 3 1 # Bowel Movements 1 - Labs CBC & Chem 7: 04/19/20 05:00 04/20/20 05:00 Labs: Abnormal Lab Results - Last 24 Hours (Table) 04/20/20 Range/Units 05:00 Sodium 134 L (137-145) mmol/L BUN 38 H (9-20) mg/dL Calcium 8.0 L (8.4-10.2) mg/dL
[2020-04-20 14:26] VITALS: BP 108/63; PULSE 87; RESP 16; TEMP 98
--- NOTE | 2020-04-21 01:26 | DS ---
DISCHARGE SUMMARY CHIEF COMPLAINT: Difficulty breathing and right lower lobe pneumonitis. HISTORY OF PRESENT ILLNESS AND PHYSICAL EXAMINATION: Details of this man's history and physical can be found in the initial workup. LABORATORY STUDIES: While he was in the hospital, he had laboratory studies, details of which can be found in the laboratory section of his chart. COURSE IN THE HOSPITAL: After admission, he was placed on bedrest, started on intravenous fluids, updrafts and antibiotics. He was followed by Pulmonology. He is doing well until one evening his blood pressure spiked and he became acutely dyspneic. He was diuresed and other measures were instituted. His breathing returned to normal and his chest cleared. He was doing well and it was felt he could be discharged on the . He will go home on his usual activity and diet. He is to be followed up by [facility]. He will be contacted by the office in a day or 2. FINAL DIAGNOSES: 1. Acute respiratory failure. 2. Right lower lobe pneumonitis. 3. Exacerbation of chronic obstructive pulmonary disease. 4. Hypertension. OPERATIONS: None. CONSULTATION: Pulmonology. He is improved. MMODL / IJN: [id number] /
[2020-04-21] MEDS ORDERED: predniSONE 20 MG TAB PO SCH (09:00)
[2020-04-21] MEDS ORDERED: FUROSEMIDE 20 MG TAB PO SCH (09:00)
== END 2020-04-20 16:00 | disposition home health service (06) | DRG 190 ==
LOC: EC 08:22 → 4SSUR 11:38 → 6NMEDSUR 21:20
PROVIDERS: ADMIT Family Medicine; ATTEND Family Medicine
DX: J44.1 Chronic obstructive pulmonary disease with (acute) exacerbation (principal); J18.9 Pneumonia, unspecified organism; J96.21 Acute and chronic respiratory failure with hypoxia; I50.33 Acute on chronic diastolic (congestive) heart failure; N17.9 Acute kidney failure, unspecified; E85.4 Organ-limited amyloidosis; I71.2 Thoracic aortic aneurysm, without rupture; I11.0 Hypertensive heart disease with heart failure; Z99.81 Dependence on supplemental oxygen; J44.0 Chronic obstructive pulmonary disease with (acute) lower respiratory infection; B18.2 Chronic viral hepatitis C; Z20.822 Contact with and (suspected) exposure to COVID-19; E86.0 Dehydration; E78.5 Hyperlipidemia, unspecified; R91.1 Solitary pulmonary nodule; R00.0 Tachycardia, unspecified; L40.9 Psoriasis, unspecified; L99 Other disorders of skin and subcutaneous tissue in diseases classified elsewhere; F17.210 Nicotine dependence, cigarettes, uncomplicated; K42.9 Umbilical hernia without obstruction or gangrene; R11.2 Nausea with vomiting, unspecified; K21.9 Gastro-esophageal reflux disease without esophagitis; T50.8X5A Adverse effect of diagnostic agents, initial encounter; M19.90 Unspecified osteoarthritis, unspecified site; Z71.3 Dietary counseling and surveillance; Z71.6 Tobacco abuse counseling; Z79.899 Other long term (current) drug therapy; Z87.01 Personal history of pneumonia (recurrent); Z86.14 Personal history of Methicillin resistant Staphylococcus aureus infection; Z98.890 Other specified postprocedural states; Z98.1 Arthrodesis status; Z96.643 Presence of artificial hip joint, bilateral; Z90.49 Acquired absence of other specified parts of digestive tract; Z82.49 Family history of ischemic heart disease and other diseases of the circulatory system
CPT/HCPCS: 36415; 71045; 71046; 71275; 80048; 80053; 82550; 83605; 83735; 83880; 84145; 84484; 85025; 85379; 85610; 85730; 87040; 87635; 93005; 93306; 94640; 94760; 96361; 96365; 96366; 96367; 96375; 99285

== ENCOUNTER 2020-06-06 14:15 | Observation (INO) | payer MEDICARE ==
[2020-06-06] MEDS ORDERED: ALBUTEROL NEBULIZED 2.5 MG/3 ML INHALATION STA (14:43)
[2020-06-06] MEDS ORDERED: IPRATROPIUM 0.5 MG/2.5 ML NEBU INHALATION STA (14:43)
[2020-06-06] MEDS ORDERED: methylPREDNISolone SOD SUCCI 125 MG/2 ML VIAL IV STA (14:43)
[2020-06-06] MEDS ORDERED: NITROGLYCERIN OINT 1 INCH/GM PACKET TOPICAL STA (14:43)
[2020-06-06] MEDS ORDERED: ASPIRIN 81 MG PO STA (14:44)
--- NOTE | 2020-06-06 14:54 | ED ---
General Adult HPI - General Chief complaint: Shortness of Breath Stated complaint: pneumonia Time Seen by Provider: 06/06/20 14:35 Source: patient, EMS, RN notes reviewed, old records reviewed Mode of arrival: EMS Limitations: no limitations - History of Present Illness Initial comments: This is a 75-year-old male who is brought in by EMS for shortness of breath and chest pain. Patient states he has had pneumonia multiple times in the past. Patient states he is a smoker and continues to smoke. Patient states he also has COPD. Patient comes in today because his shortness of breath is worse he is normally on 5 L of oxygen at home. Patient states he's been coughing a lot and coughing up a lot of junk and this is typical of his pneumonia. Patient states she's got the first of 2 COVID vaccine shots. Patient states the chest pain is in the anterior aspect of his chest that does not radiate anywhere. Patient denies any nausea vomiting. Patient denies any diarrhea. Patient denies any swelling to the legs or calf tenderness. - Related Data Home Medications Medication Instructions Recorded Confirmed Ergocalciferol [Vitamin D2 50,000 unit PO Q30D 08/17/18 06/06/20 (DRISDOL)] traMADol HCL [Ultram] 50 mg PO BID PRN 08/17/18 06/06/20 Albuterol Sulfate [Ventolin HFA] 2 puff INHALATION RT-Q6H PRN 01/20/20 06/06/20 Famotidine [Pepcid] 20 mg PO BID PRN 01/20/20 06/06/20 Multivitamins, Thera [Multivitamin 1 tab PO DAILY 01/20/20 06/06/20 (formulary)] OLANZapine [ZyPREXA] 2.5 mg PO TID 01/20/20 06/06/20 Olopatadine HCl [Pataday] 1 drop BOTH EYES BID 01/20/20 06/06/20 Sucralfate [Carafate] 1 gm PO BID 06/06/20 06/06/20 Previous Rx's Medication Instructions Recorded FLUoxetine HCL [PROzac] 20 mg PO DAILY #30 cap 10/04/18 Docusate [Colace] 100 mg PO BID #60 cap 10/08/18 Budesonide-Formot 160-4.5 Mcg 2 puff INHALATION RT-BID #1 puff 04/20/20 [Symbicort 160-4.5 Mcg Inhaler] Furosemide [Lasix] 20 mg PO DAILY #90 tab 04/20/20 Ipratropium-Albuterol Nebulize 3 ml INHALATION RT-QID #120 ml 04/20/20 [Duoneb 0.5 mg-3 mg/3 ml Soln] Losartan [Cozaar] 50 mg PO DAILY #10 tab 04/20/20 Allergies Allergy/AdvReac Type Severity Reaction Status Date / Time No Known Allergies Allergy Verified 04/11/20 09:02 Review of Systems ROS Statement: Those systems with pertinent positive or pertinent negative responses have been documented in the HPI. ROS Other: All systems not noted in ROS Statement are negative. 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 History of Any Multi-Drug Resistant Organisms: MRSA Date of last positivie culture/infection: 08/27/18 MDRO Source:: BRONCH WASH Past Surgical History: Appendectomy, Back Surgery, Joint Replacement Additional Past Surgical History / Comment(s): Lumbar laminectomy/fusion, bilateral total hip replacements, bronchoscopy, colonoscopy. Past Anesthesia/Blood Transfusion Reactions: No Reported Reaction Additional Past Anesthesia/Blood Transfusion Reaction / Comment(s): Pt received blood with hip surgery Past Psychological History: No Psychological Hx Reported Smoking Status: Current every day smoker - Past Family History Father Family Medical History: Myocardial Infarction (SC) Additional Family Medical History / Comment(s): Father of a SC at the age of 70yrs. Mother Family Medical History: No Reported History Additional Family Medical History / Comment(s): Pt states mother was healthy General Exam - General Exam Comments Initial Comments: GENERAL: Patient is well-developed and well-nourished. Patient is nontoxic and well- hydrated and is in mild distress. ENT: Neck is soft and supple. No significant lymphadenopathy is noted. Oropharynx is clear. Moist mucous membranes. Neck has full range of motion without e liciting any pain. EYES: The sclera were anicteric and conjunctiva were pink and moist. Extraocular movements were intact and pupils were equal round and reactive to light. Eyelids were unremarkable. PULMONARY: Unlabored respirations. Good breath sounds bilaterally. No audible rales rhonchi or wheezing was noted. CARDIOVASCULAR: There is a regular rate and rhythm without any murmurs gallops or rubs. ABDOMEN: Soft and nontender with normal bowel sounds. SKIN: Skin is clear with no lesions or rashes and otherwise unremarkable. NEUROLOGIC: Patient is alert and oriented x3. Cranial nerves II through XII are grossly intact. Motor and sensory are also intact. Normal speech, volume and content. Symmetrical smile. MUSCULOSKELETAL: Normal extremities with adequate strength and full range of motion. LYMPHATICS: No significant lymphadenopathy is noted PSYCHIATRIC: Normal psychiatric evaluation. Limitations: no limitations Course Vital Signs 06/06/20 06/06/20 06/06/20 14:37 15:27 15:49 Temperature 98.8 F Pulse Rate 95 94 90 Respiratory 18 Rate Blood Pressure 110/68 O2 Sat by Pulse 100 Oximetry 06/06/20 16:34 Temperature Pulse Rate 93 Respiratory 18 Rate Blood Pressure 121/67 O2 Sat by Pulse 100 Oximetry Medical Decision Making - Medical Decision Making EKG shows a normal sinus rhythm at 92 bpm [place] interval is 152 QRS is 108 QT interval 380 QTC is 479. Patient's EKG shows no ST segment elevation or depression. X-ray shows COPD no signs of pneumonia. I spoke with Dr. Mendoza and he agreed to admit the patient admitted the patient for COPD exacerbation. Patient received steroids in the emergency department as well as 2 breathing treatments. He will receive a third prior to going ups [facility] Patient also received antibiotics. Continue receiving steroids on the floor and antibiotics on the floor as well as breathing treatments. - Lab Data Result diagrams: 06/06/20 15:12 06/06/20 15:12 Lab Results 06/06/20 06/06/20 06/06/20 Range/Units 15:12 15:12 15:12 WBC 6.3 (3.8-10.6) k/uL RBC 4.04 L (4.30-5.90) m/uL Hgb 12.2 L (13.0-17.5) gm/dL Hct 35.9 L (39.0-53.0) % MCV 88.7 (80.0-100.0) fL MCH 30.3 (25.0-35.0) pg MCHC 34.1 (31.0-37.0) g/dL RDW 13.5 (11.5-15.5) % Plt Count 223 (150-450) k/uL MPV 7.8 Neutrophils % 71 % Lymphocytes % 16 % Monocytes % 9 % Eosinophils % 2 % Basophils % 1 % Neutrophils # 4.5 (1.3-7.7) k/uL Lymphocytes # 1.0 (1.0-4.8) k/uL Monocytes # 0.5 (0-1.0) k/uL Eosinophils # 0.1 (0-0.7) k/uL Basophils # 0.0 (0-0.2) k/uL PT 10.4 (9.0-12.0) sec INR 1.0 (<1.2) APTT 22.4 (22.0-30.0) sec Sodium 135 L (137-145) mmol/L Potassium 4.2 (3.5-5.1) mmol/L Chloride 93 L (98-107) mmol/L Carbon Dioxide 36 H (22-30) mmol/L Anion Gap 6 mmol/L BUN 15 (9-20) mg/dL Creatinine 1.10 (0.66-1.25) mg/dL Est GFR (CKD-EPI)AfAm 77 (>60 ml/min/1.73 sqM) Est GFR (CKD-EPI)NonAf 66 (>60 ml/min/1.73 sqM) Glucose 130 H (74-99) mg/dL Plasma Lactic Acid Gabe (0.7-2.0) mmol/L Calcium 10.0 (8.4-10.2) mg/dL Magnesium 1.9 (1.6-2.3) mg/dL Total Bilirubin 0.5 (0.2-1.3) mg/dL AST 39 (17-59) U/L ALT 21 (4-49) U/L Alkaline Phosphatase 51 (38-126) U/L Troponin I (0.000-0.034) ng/mL NT-Pro-B Natriuret Pep pg/mL Total Protein 7.3 (6.3-8.2) g/dL Albumin 4.4 (3.5-5.0) g/dL 06/06/20 06/06/20 06/06/20 Range/Units 15:12 15:12 15:12 WBC (3.8-10.6) k/uL RBC (4.30-5.90) m/uL Hgb (13.0-17.5) gm/dL Hct (39.0-53.0) % MCV (80.0-100.0) fL MCH (25.0-35.0) pg MCHC (31.0-37.0) g/dL RDW (11.5-15.5) % Plt Count (150-450) k/uL MPV Neutrophils % % Lymphocytes % % Monocytes % % Eosinophils % % Basophils % % Neutrophils # (1.3-7.7) k/uL Lymphocytes # (1.0-4.8) k/uL Monocytes # (0-1.0) k/uL Eosinophils # (0-0.7) k/uL Basophils # (0-0.2) k/uL PT (9.0-12.0) sec INR (<1.2) APTT (22.0-30.0) sec Sodium (137-145) mmol/L Potassium (3.5-5.1) mmol/L Chloride (98-107) mmol/L Carbon Dioxide (22-30) mmol/L Anion Gap mmol/L BUN (9-20) mg/dL Creatinine (0.66-1.25) mg/dL Est GFR (CKD-EPI)AfAm (>60 ml/min/1.73 sqM) Est GFR (CKD-EPI)NonAf (>60 ml/min/1.73 sqM) Glucose (74-99) mg/dL Plasma Lactic Acid Gabe 1.3 (0.7-2.0) mmol/L Calcium (8.4-10.2) mg/dL Magnesium (1.6-2.3) mg/dL Total Bilirubin (0.2-1.3) mg/dL AST (17-59) U/L ALT (4-49) U/L Alkaline Phosphatase (38-126) U/L Troponin I <0.012 (0.000-0.034) ng/mL NT-Pro-B Natriuret Pep 55 pg/mL Total Protein (6.3-8.2) g/dL Albumin (3.5-5.0) g/dL Critical Care Time Critical Care Time: Yes Total Critical Care Time: 35 Disposition Clinical Impression: COPD exacerbation, Acute bronchitis Disposition: ADMITTED IP TO THIS HOSP Referrals: Gerber Grissom MD [Primary Care Provider] - 1-2 days Time of Disposition: 17:00
--- NOTE | 2020-06-06 15:10 | XR ---
EXAMINATION TYPE: XR chest 1V portable DATE OF EXAM: 06/06/2020 COMPARISON: Chest x-ray and CTA chest April 15, 2020 HISTORY: Cough and shortness of breath with chest pain. TECHNIQUE: Single AP portable frontal upright view of the chest is obtained. FINDINGS: There are chronic emphysematous and parenchymal fibrotic changes without suspicious new fo tonya air space opacity, pleural effusion, or pneumothorax seen bilaterally. The cardiac silhouette si ze is stable and within normal limits with atherosclerotic and ectatic thoracic aorta. The osseous structures remain demineralized. IMPRESSION: Chronic changes without acute pulmonary process.
[2020-06-06 15:38] LABS: Basophils % (A) 1 %; Eosinophils # (A) 0.1 k/uL (0-0.7); Eosinophils % (A) 2 %; HCT 35.9 % (39.0-53.0); HGB 12.2 gm/dL (13.0-17.5); Lymphocytes % (A) 16 %; MCH 30.3 pg (25.0-35.0); MCHC 34.1 g/dL (31.0-37.0); MCV 88.7 fL (80.0-100.0); Mean Platelet Volume 7.8; Monocytes # (A) 0.5 k/uL (0-1.0); Monocytes % (A) 9 %; Neutrophils # (A) 4.5 k/uL (1.3-7.7); Neutrophils % (A) 71 %; Platelet Count 223 k/uL (150-450); RBC 4.04 m/uL (4.30-5.90); RDW 13.5 % (11.5-15.5); WBC 6.3 k/uL (3.8-10.6)
[2020-06-06 15:46] LABS: Albumin 4.4 g/dL (3.5-5.0); Magnesium 1.9 mg/dL (1.6-2.3); Potassium 4.2 mmol/L (3.5-5.1); Total Bilirubin 0.5 mg/dL (0.2-1.3); Total Protein 7.3 g/dL (6.3-8.2)
[2020-06-06 15:50] LABS: Partial Thromboplastin Time 22.4 sec (22.0-30.0); Prothrombin Time 10.4 sec (9.0-12.0)
[2020-06-06] MEDS ORDERED: FAMOTIDINE 20 MG TAB PO PRN (17:46)
[2020-06-06] MEDS ORDERED: IPRATROPIUM-ALBUTEROL 3 ML NEB INHALATION SCH (20:00)
[2020-06-06] MEDS: IPRATROPIUM-ALBUTEROL 3 ML NEB INHALATION SCH (20:04)
[2020-06-06] MEDS: SYMBICORT 160-4.5 MCG INHALER INHALATION SCH (20:04)
[2020-06-06] MEDS ORDERED: NICOTINE 21MG/24HR PATCH TRANSDERM STA (22:34)
[2020-06-06] MEDS: methylPREDNISolone SOD SUCCI 125 MG/2 ML VIAL IV SCH (22:40)
[2020-06-06] MEDS: KETOTIFEN 0.025% OPHTH DROPS 5 ML BTL BOTH EYES SCH (22:41)
[2020-06-06] MEDS: CEFDINIR 300 MG CAP PO SCH (22:41)
[2020-06-06] MEDS: OLANZapine 2.5 MG TAB PO SCH (22:41)
[2020-06-06] MEDS: SUCRALFATE 1 GM TAB PO SCH (22:46)
[2020-06-06] MEDS: DOCUSATE 100 MG CAP PO SCH (22:46)
[2020-06-07] MEDS: methylPREDNISolone SOD SUCCI 125 MG/2 ML VIAL IV SCH ×5 (01:50→23:26)
[2020-06-07] MEDS: SUCRALFATE 1 GM TAB PO SCH ×2 (08:23→20:33)
[2020-06-07] MEDS: CEFDINIR 300 MG CAP PO SCH ×2 (08:23→20:32)
[2020-06-07] MEDS: FLUoxetine HCL 20 MG CAP PO SCH (08:23)
[2020-06-07] MEDS: FUROSEMIDE 20 MG TAB PO SCH (08:23)
[2020-06-07] MEDS: DOCUSATE 100 MG CAP PO SCH ×2 (08:23→20:32)
[2020-06-07] MEDS: LOSARTAN 50 MG TAB PO SCH (08:23)
[2020-06-07] MEDS: KETOTIFEN 0.025% OPHTH DROPS 5 ML BTL BOTH EYES SCH ×2 (08:24→20:33)
[2020-06-07] MEDS: SYMBICORT 160-4.5 MCG INHALER INHALATION SCH ×2 (08:48→19:48)
[2020-06-07] MEDS: IPRATROPIUM-ALBUTEROL 3 ML NEB INHALATION SCH ×4 (08:48→19:48)
[2020-06-07] MEDS: OLANZapine 2.5 MG TAB PO SCH ×3 (11:36→21:24)
[2020-06-07] MEDS: traMADol 50 MG TAB PO PRN ×2 (15:44→23:28)
--- NOTE | 2020-06-07 17:37 | HP ---
HISTORY AND PHYSICAL CHIEF COMPLAINT: Shortness of breath and left anterior chest discomfort. HISTORY OF PRESENT ILLNESS: This is another admission for this 75-year-old white male who has severe COPD. He lives at home with nasal oxygen 24 hours a day. He was recently in the hospital for exacerbation of COPD and right lower lobe pneumonia. He went home and has been doing fairly well, then he suddenly started to have more difficulty breathing. He came to the emergency room where he was complaining of a slight left anterior chest pain and shortness of breath. There were no abnormalities on his chest x-ray. He has had 1 Covid vaccine (Moderna). He has had no hemoptysis, diaphoresis, orthopnea, PND, palpitations, syncope, etc. Past medical history, family history and personal and social histories are all otherwise unremarkable and unchanged from his recent admitting and discharge summaries. Medications can be found in the MAR section of his chart. He does not smoke. PHYSICAL EXAMINATION: Blood pressure is 136/86 with a pulse of 78, respirations of 35. He is afebrile. In general he appeared to be slender and slightly short of breath. Skin color is normal. Skin is warm, dry. Lymph nodes are not enlarged. Head, ears, eyes, nose, mouth and throat were normal. Chest demonstrated scattered rales and rhonchi bilaterally with no dullness to percussion. There were no significant rhonchi. Cardiac exam is normal sinus tachycardia. Abdomen is soft and flat. There are no masses or tenderness. Bowel sounds present. Extremities are normal. Neurologically he is intact. IMPRESSION: He is admitted to the hospital with diagnoses: 1. Exacerbation of chronic obstructive pulmonary disease. 2. History of depression. PLAN: 1. Bedrest. 2. IV fluids. 3. IV inhaled steroids. 4. Updrafts. MMODL / IJN: [id number] /
--- NOTE | 2020-06-07 17:56 | PN ---
PROGRESS NOTE DATE OF SERVICE: 06/07/2020 CHIEF COMPLAINT: Exacerbation of COPD. HISTORY OF PRESENT ILLNESS: This gentleman is doing a bit better. He is breathing slightly more easily. He still has some left anterior chest discomfort. PHYSICAL EXAMINATION: Breath sounds are diminished throughout with scattered rales. Cardiac exam demonstrated sinus rhythm. Chest wall is nontender. IMPRESSION: 1. Exacerbation of chronic obstructive pulmonary disease. 2. Left anterior chest pain. PLAN: Continue with updrafts and steroids and monitor his respiratory function as well as a left anterior chest discomfort. MMODL / IJN: [id number] /
[2020-06-07] MEDS ORDERED: NICOTINE 21MG/24HR PATCH TRANSDERM STA (20:11)
[2020-06-07] MEDS ORDERED: ACETAMINOPHEN TAB 325 MG TAB PO PRN (20:12)
[2020-06-08] MEDS: methylPREDNISolone SOD SUCCI 125 MG/2 ML VIAL IV SCH ×2 (05:04→12:17)
[2020-06-08] MEDS: IPRATROPIUM-ALBUTEROL 3 ML NEB INHALATION SCH ×3 (08:02→15:46)
[2020-06-08] MEDS: SYMBICORT 160-4.5 MCG INHALER INHALATION SCH (08:04)
[2020-06-08] MEDS: DOCUSATE 100 MG CAP PO SCH (08:52)
[2020-06-08] MEDS: FUROSEMIDE 20 MG TAB PO SCH (08:52)
[2020-06-08] MEDS: FLUoxetine HCL 20 MG CAP PO SCH (08:52)
[2020-06-08] MEDS: SUCRALFATE 1 GM TAB PO SCH (08:52)
[2020-06-08] MEDS: LOSARTAN 50 MG TAB PO SCH (08:52)
[2020-06-08] MEDS: CEFDINIR 300 MG CAP PO SCH (08:52)
[2020-06-08] MEDS: OLANZapine 2.5 MG TAB PO SCH (08:52)
[2020-06-08] MEDS: KETOTIFEN 0.025% OPHTH DROPS 5 ML BTL BOTH EYES SCH (08:53)
[2020-06-08 16:18] VITALS: BP 136/75; PULSE 68; RESP 16; TEMP 97.4
[2020-06-08] MEDS ORDERED: CEPHALEXIN 500 MG CAP PO SCH (18:00)
--- NOTE | 2020-06-09 10:09 | DS ---
DISCHARGE SUMMARY CHIEF COMPLAINT: Difficulty breathing. HISTORY OF PRESENT ILLNESS AND PHYSICAL EXAM: Details of this man's history and physical can be found in the initial workup. LABORATORY STUDIES: While he was in the hospital he had laboratory studies, details of which can be found in the laboratory section of his chart. COURSE IN THE HOSPITAL: After admission, he was placed on bedrest, started on intravenous fluids and updrafts with IV and inhaled steroids. He cleared quite quickly. He was anxious to be discharged and it was felt he could go home on the . To be followed as an outpatient in a day or so. He can go home on his usual activity, diet in addition to cephalosporin. FINAL DIAGNOSIS: Exacerbation of chronic obstructive pulmonary disease. OPERATIONS: None. CONSULTATIONS: None. He is improved. LEIA / CLARKE: [id number] /
== END 2020-06-08 16:45 | disposition home or self-care (01) ==
LOC: EC 14:15 → 6NMEDSUR 17:01
PROVIDERS: ADMIT Family Medicine; ATTEND Family Medicine
DX: J44.1 Chronic obstructive pulmonary disease with (acute) exacerbation (principal); J44.0 Chronic obstructive pulmonary disease with (acute) lower respiratory infection; J20.9 Acute bronchitis, unspecified; R07.89 Other chest pain; Z87.01 Personal history of pneumonia (recurrent); F32.9 Major depressive disorder, single episode, unspecified; K21.9 Gastro-esophageal reflux disease without esophagitis; E78.5 Hyperlipidemia, unspecified; M19.90 Unspecified osteoarthritis, unspecified site; R91.1 Solitary pulmonary nodule; I71.2 Thoracic aortic aneurysm, without rupture; L40.9 Psoriasis, unspecified; E85.9 Amyloidosis, unspecified; M54.5 Low back pain; K59.00 Constipation, unspecified; F17.200 Nicotine dependence, unspecified, uncomplicated; Z20.822 Contact with and (suspected) exposure to COVID-19; Z79.899 Other long term (current) drug therapy; Z99.81 Dependence on supplemental oxygen; Z86.14 Personal history of Methicillin resistant Staphylococcus aureus infection; Z86.19 Personal history of other infectious and parasitic diseases; Z90.49 Acquired absence of other specified parts of digestive tract; Z98.1 Arthrodesis status; Z96.643 Presence of artificial hip joint, bilateral; Z82.49 Family history of ischemic heart disease and other diseases of the circulatory system
CPT/HCPCS: 96376 ×3; 96365; 96366; 96375; 99291; 36415; 94640 ×5; 93005; 83880; 80053; 83605; 83735; 84484; 85025; 85610; 85730; 87635; 71045; G0378 ×3; S4990 ×2; J2930 ×3; J0696

== ENCOUNTER 2021-12-28 13:25 | Emergency (ER) | payer MEDICARE ==
[2021-12-28 14:00] LABS: Basophils % (A) 1 %; Eosinophils # (A) 0.1 k/uL (0-0.7); Eosinophils % (A) 1 %; HCT 36.3 % (39.0-53.0); Lymphocytes % (A) 17 %; MCH 31.2 pg (25.0-35.0); MCV 94.6 fL (80.0-100.0); Mean Platelet Volume 8.8; Monocytes # (A) 0.5 k/uL (0-1.0); Monocytes % (A) 7 %; Neutrophils # (A) 4.5 k/uL (1.3-7.7); Neutrophils % (A) 71 %; Platelet Count 236 k/uL (150-450); RBC 3.84 m/uL (4.30-5.90); RDW 12.8 % (11.5-15.5); WBC 6.3 k/uL (3.8-10.6)
[2021-12-28 14:15] LABS: INR 0.9 (<1.2); Partial Thromboplastin Time 21.9 sec (22.0-30.0)
[2021-12-28 14:21] LABS: ALT 21 U/L (4-49); AST 28 U/L (17-59); African American GFR (CKD) >90 (>60 ml/min/1.73 sqM); Albumin 4.4 g/dL (3.5-5.0); Alkaline Phosphatase 63 U/L (38-126); Blood Urea Nitrogen 20 mg/dL (9-20); Calcium 9.3 mg/dL (8.4-10.2); Chloride 90 mmol/L (98-107); Glucose 101 mg/dL (74-99); Non-African American GFR(CKD) 80 (>60 ml/min/1.73 sqM); Potassium 4.5 mmol/L (3.5-5.1); Sodium 135 mmol/L (137-145); Total Bilirubin 0.6 mg/dL (0.2-1.3); Total Protein 7.3 g/dL (6.3-8.2)
[2021-12-28 14:27] LABS: Anion Gap 6 mmol/L
[2021-12-28 14:30] LABS: Carbon Dioxide 39 mmol/L (22-30)
--- NOTE | 2021-12-28 14:46 | XR ---
EXAMINATION TYPE: XR chest 2V DATE OF EXAM: 12/28/2021 2:37 PM COMPARISON: Chest radiographs from 06/06/2020. TECHNIQUE: XR chest 2V Frontal and lateral views of the chest. CLINICAL INDICATION:Male, 76 years old with history of difficulty breathing; FINDINGS: Lungs/Pleura: There is flattening of the diaphragm with increased lucency of the lungs. Chronic paren chymal fibrotic changes redemonstrated. No evidence of pneumothorax, pleural effusion or focal consol idation. Pulmonary vascularity: Unremarkable. Heart/mediastinum: Cardiomediastinal silhouette is stable. Ectasia of the thoracic aorta redemonstrat ed. Atherosclerotic calcifications are seen in the aorta. Musculoskeletal: No acute osseous pathology. IMPRESSION: Chronic changes without acute pulmonary process. No significant change from prior exam.
[2021-12-28] MEDS ORDERED: ALBUTEROL NEBULIZED 2.5 MG/3 ML INHALATION STA ×3 (15:01→16:14)
[2021-12-28] MEDS ORDERED: methylPREDNISolone SOD SUCCI 125 MG/2 ML VIAL IV STA (15:01)
--- NOTE | 2021-12-28 15:03 | XR ---
EXAMINATION TYPE: XR KUB DATE OF EXAM: 12/28/2021 COMPARISON: CTA chest abdomen pelvis 08/17/2018. HISTORY: Constipation TECHNIQUE: Single supine KUB image of the abdomen is obtained FINDINGS: Small bowel demonstrates no evidence for dilatation or air fluid levels. Gas and fecal material is seen in mildly distended colon. No convincing evidence for pneumoperitoneum within the limitations of a noncontrast exam. No unusual calcifications. The lung bases are clear. No acute osseous abnormality. Mild levoscoliotic curvature of the lumbar spine. Postsurgical changes of the lower lumbar spine with posterior fusion hardware. Postsurgical changes from bilateral total h ip arthroplasty. IMPRESSION: 1. Overall nonobstructive bowel gas pattern. 2. Moderate colonic stool burden.
[2021-12-28] MEDS ORDERED: DOCUSATE 100 MG CAP PO STA (15:41)
[2021-12-28] MEDS ORDERED: AZITHROMYCIN 250 MG TAB PO STA (16:14)
--- NOTE | 2021-12-28 16:24 | ED ---
SOB HPI - General Chief Complaint: Shortness of Breath Stated Complaint: PATTI Time Seen by Provider: 12/28/21 14:22 Source: patient Mode of arrival: ambulatory Limitations: no limitations - History of Present Illness Initial Comments: Patient is 76-year-old male presents to the emergency department with chief complaint shortness of breath. Patient has COPD and wears supplemental oxygen at home, 4 L nasal cannula. He noticed worsening of his shortness of breath this past week. He does not feel short of breath at rest but does feel short of breath with activities of daily living. Reports cough with intermittent sputum, yellow in color. Denies fever, chills, other upper respiratory symptoms, chest pain, lightheadedness, dizziness. Patient also reports intermittent constipation for several months. He denies abdominal pain, nausea, vomiting. L ast bowel movement 2 days ago. He takes a stool softener twice daily. Patient also mentions fall to triage nurse. Patient states this happened several weeks ago. Denies blood thinner use. - Related Data Home Medications Medication Instructions Recorded Confirmed Ergocalciferol [Vitamin D2 50,000 unit PO Q30D 08/17/18 06/06/20 (DRISDOL)] traMADol HCL [Ultram] 50 mg PO BID PRN 08/17/18 06/06/20 Albuterol Sulfate [Ventolin HFA] 2 puff INHALATION RT-Q6H PRN 01/20/20 06/06/20 Famotidine [Pepcid] 20 mg PO BID PRN 01/20/20 06/06/20 Multivitamins, Thera [Multivitamin 1 tab PO DAILY 01/20/20 06/06/20 (formulary)] OLANZapine [ZyPREXA] 2.5 mg PO TID 01/20/20 06/06/20 Olopatadine HCl [Pataday] 1 drop BOTH EYES BID 01/20/20 06/06/20 Sucralfate [Carafate] 1 gm PO BID 06/06/20 06/06/20 Previous Rx's Medication Instructions Recorded FLUoxetine HCL [PROzac] 20 mg PO DAILY #30 cap 10/04/18 Docusate [Colace] 100 mg PO BID #60 cap 10/08/18 Budesonide-Formot 160-4.5 Mcg 2 puff INHALATION RT-BID #1 puff 04/20/20 [Symbicort 160-4.5 Mcg Inhaler] Furosemide [Lasix] 20 mg PO DAILY #90 tab 04/20/20 Ipratropium-Albuterol Nebulize 3 ml INHALATION RT-QID #120 ml 04/20/20 [Duoneb 0.5 mg-3 mg/3 ml Soln] Losartan [Cozaar] 50 mg PO DAILY #10 tab 04/20/20 Cefdinir [Omnicef] 300 mg PO BID #20 cap 06/08/20 Azithromycin [Zithromax Z Pack] 1 tab PO DIRECTED #6 tab 12/28/21 predniSONE 50 mg PO DAILY #5 tab 12/28/21 Allergies Allergy/AdvReac Type Severity Reaction Status Date / Time No Known Allergies Allergy Verified 12/28/21 13:34 Review of Systems ROS Statement: Those systems with pertinent positive or pertinent negative responses have been documented in the HPI. ROS Other: All systems not noted in ROS Statement are negative. 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 History of Any Multi-Drug Resistant Organisms: MRSA Date of last positivie culture/infection: 08/27/18 MDRO Source:: BRONCH WASH Past Surgical History: Appendectomy, Back Surgery, Joint Replacement Additional Past Surgical History / Comment(s): Lumbar laminectomy/fusion, bilateral total hip replacements, bronchoscopy, colonoscopy. Past Anesthesia/Blood Transfusion Reactions: No Reported Reaction Additional Past Anesthesia/Blood Transfusion Reaction / Comment(s): Pt received blood with hip surgery Past Psychological History: No Psychological Hx Reported Smoking Status: Former smoker Past Alcohol Use History: None Reported Past Drug Use History: None Reported - Past Family History Father Family Medical History: Myocardial Infarction (UT) Additional Family Medical History / Comment(s): Father of a UT at the age of 70yrs. Mother Family Medical History: No Reported History Additional Family Medical History / Comment(s): Pt states mother was healthy General Exam Limitations: no limitations General appearance: alert, in no apparent distress Head exam: Present: atraumatic, normocephalic, normal inspection ENT exam: Present: mucous membranes moist Respiratory exam: Present: normal lung sounds bilaterally, wheezes. Absent: respiratory distress, rales, rhonchi, stridor Cardiovascular Exam: Present: regular rate, normal rhythm, normal heart sounds. Absent: systolic murmur, diastolic murmur, rubs, gallop, clicks GI/Abdominal exam: Present: soft, normal bowel sounds, hernia. Absent: distended, tenderness, guarding, rebound, rigid Extremities exam: Present: normal inspection, full ROM, normal capillary refill. Absent: pedal edema Neurological exam: Present: alert, oriented X3, CN II-XII intact Psychiatric exam: Present: normal affect, normal mood Skin exam: Present: warm, dry, intact, normal color. Absent: rash Course Vital Signs 12/28/21 12/28/21 12/28/21 13:27 14:58 15:13 Temperature 98.3 F Pulse Rate 26 L 74 96 Respiratory 22 20 Rate Blood Pressure 143/83 117/71 O2 Sat by Pulse 98 100 Oximetry 12/28/21 15:22 Temperature Pulse Rate 96 Respiratory Rate Blood Pressure O2 Sat by Pulse Oximetry Medical Decision Making - Medical Decision Making This is a 76-year-old male presenting with exertional shortness of breath. Patient well-appearing and in no apparent distress.Oxygen saturation is 98% on 4 L nasal cannula which patient was at home. Afebrile. No tachypnea or increased work of breathing. Laboratory studies obtained. Hemoglobin low at 12.0, consistent with previous visits. Troponin and BNP are within normal limits. No chest pain. COVID-19 and influenza are not detected. Chest xray interpreted by me shows no focal consolidation or other acute process. Patient given Solu-Medrol, multiple breathing treatments. On reevaluation wheezing has resolved. Patient feeling better. KUB x-ray obtained in triage for constipation which was interpreted by me and did show a moderate stool Birden. However after discussing it with patient he would not like further treatment. He declines MiraLAX and enema. Patient served closely in the emergency department. No episodes of hypoxia. He will be discharged with prednisone. I'll also send him home with a zpak for pneumonia prophylaxis. First dose given the emergency department. Patient to follow-up with primary care provider. Dr. Kim is my attending. - Lab Data Result diagrams: 12/28/21 13:40 12/28/21 13:40 Lab Results 12/28/21 12/28/21 12/28/21 Range/Units 13:40 13:40 13:40 WBC 6.3 (3.8-10.6) k/uL RBC 3.84 L (4.30-5.90) m/uL Hgb 12.0 L (13.0-17.5) gm/dL Hct 36.3 L (39.0-53.0) % MCV 94.6 (80.0-100.0) fL MCH 31.2 (25.0-35.0) pg MCHC 33.0 (31.0-37.0) g/dL RDW 12.8 (11.5-15.5) % Plt Count 236 (150-450) k/uL MPV 8.8 Neutrophils % 71 % Lymphocytes % 17 % Monocytes % 7 % Eosinophils % 1 % Basophils % 1 % Neutrophils # 4.5 (1.3-7.7) k/uL Lymphocytes # 1.0 (1.0-4.8) k/uL Monocytes # 0.5 (0-1.0) k/uL Eosinophils # 0.1 (0-0.7) k/uL Basophils # 0.0 (0-0.2) k/uL PT 10.0 (9.0-12.0) sec INR 0.9 (<1.2) APTT 21.9 L (22.0-30.0) sec Sodium 135 L (137-145) mmol/L Potassium 4.5 (3.5-5.1) mmol/L Chloride 90 L (98-107) mmol/L Carbon Dioxide 39 H (22-30) mmol/L Anion Gap 6 mmol/L BUN 20 (9-20) mg/dL Creatinine 0.94 (0.66-1.25) mg/dL Est GFR (CKD-EPI)AfAm >90 (>60 ml/min/1.73 sqM) Est GFR (CKD-EPI)NonAf 80 (>60 ml/min/1.73 sqM) Glucose 101 H (74-99) mg/dL Plasma Lactic Acid Gabe (0.7-2.0) mmol/L Calcium 9.3 (8.4-10.2) mg/dL Total Bilirubin 0.6 (0.2-1.3) mg/dL AST 28 (17-59) U/L ALT 21 (4-49) U/L Alkaline Phosphatase 63 (38-126) U/L Troponin I (0.000-0.034) ng/mL NT-Pro-B Natriuret Pep pg/mL Total Protein 7.3 (6.3-8.2) g/dL Albumin 4.4 (3.5-5.0) g/dL Coronavirus (PCR) (Not Detectd) Influenza Type A RNA (Not Detectd) Influenza Type B (PCR) (Not Detectd) 12/28/21 12/28/21 12/28/21 Range/Units 13:40 13:40 13:40 WBC (3.8-10.6) k/uL RBC (4.30-5.90) m/uL Hgb (13.0-17.5) gm/dL Hct (39.0-53.0) % MCV (80.0-100.0) fL MCH (25.0-35.0) pg MCHC (31.0-37.0) g/dL RDW (11.5-15.5) % Plt Count (150-450) k/uL MPV Neutrophils % % Lymphocytes % % Monocytes % % Eosinophils % % Basophils % % Neutrophils # (1.3-7.7) k/uL Lymphocytes # (1.0-4.8) k/uL Monocytes # (0-1.0) k/uL Eosinophils # (0-0.7) k/uL Basophils # (0-0.2) k/uL PT (9.0-12.0) sec INR (<1.2) APTT (22.0-30.0) sec Sodium (137-145) mmol/L Potassium (3.5-5.1) mmol/L Chloride (98-107) mmol/L Carbon Dioxide (22-30) mmol/L Anion Gap mmol/L BUN (9-20) mg/dL Creatinine (0.66-1.25) mg/dL Est GFR (CKD-EPI)AfAm (>60 ml/min/1.73 sqM) Est GFR (CKD-EPI)NonAf (>60 ml/min/1.73 sqM) Glucose (74-99) mg/dL Plasma Lactic Acid Gabe 1.1 (0.7-2.0) mmol/L Calcium (8.4-10.2) mg/dL Total Bilirubin (0.2-1.3) mg/dL AST (17-59) U/L ALT (4-49) U/L Alkaline Phosphatase (38-126) U/L Troponin I <0.012 (0.000-0.034) ng/mL NT-Pro-B Natriuret Pep 56 pg/mL Total Protein (6.3-8.2) g/dL Albumin (3.5-5.0) g/dL Coronavirus (PCR) (Not Detectd) Influenza Type A RNA (Not Detectd) Influenza Type B (PCR) (Not Detectd) 12/28/21 12/28/21 Range/Units 15:01 15:01 WBC (3.8-10.6) k/uL RBC (4.30-5.90) m/uL Hgb (13.0-17.5) gm/dL Hct (39.0-53.0) % MCV (80.0-100.0) fL MCH (25.0-35.0) pg MCHC (31.0-37.0) g/dL RDW (11.5-15.5) % Plt Count (150-450) k/uL MPV Neutrophils % % Lymphocytes % % Monocytes % % Eosinophils % % Basophils % % Neutrophils # (1.3-7.7) k/uL Lymphocytes # (1.0-4.8) k/uL Monocytes # (0-1.0) k/uL Eosinophils # (0-0.7) k/uL Basophils # (0-0.2) k/uL PT (9.0-12.0) sec INR (<1.2) APTT (22.0-30.0) sec Sodium (137-145) mmol/L Potassium (3.5-5.1) mmol/L Chloride (98-107) mmol/L Carbon Dioxide (22-30) mmol/L Anion Gap mmol/L BUN (9-20) mg/dL Creatinine (0.66-1.25) mg/dL Est GFR (CKD-EPI)AfAm (>60 ml/min/1.73 sqM) Est GFR (CKD-EPI)NonAf (>60 ml/min/1.73 sqM) Glucose (74-99) mg/dL Plasma Lactic Acid Gabe (0.7-2.0) mmol/L Calcium (8.4-10.2) mg/dL Total Bilirubin (0.2-1.3) mg/dL AST (17-59) U/L ALT (4-49) U/L Alkaline Phosphatase (38-126) U/L Troponin I (0.000-0.034) ng/mL NT-Pro-B Natriuret Pep pg/mL Total Protein (6.3-8.2) g/dL Albumin (3.5-5.0) g/dL Coronavirus (PCR) Not Detected (Not Detectd) Influenza Type A RNA Not Detected (Not Detectd) Influenza Type B (PCR) Not Detected (Not Detectd) - EKG Data EKG Comments: EKG taken at 13:45 Sinus rhythm, new T-wave inversions in V6 acute abnormality Ventricular rate 93 SD interval 150 QRS duration 117 QTC 332 Disposition Clinical Impression: COPD exacerbation Disposition: HOME SELF-CARE Condition: Good Instructions (If sedation given, give patient instructions): COPD (Chronic Obstructive Pulmonary Disease) (ED) Additional Instructions: Take medication as directed. Start them tomorrow. Continue nebulized albuterol home. Return to emergency department if you experience new, concerning, or worsening symptoms. Prescriptions: predniSONE 50 mg PO DAILY #5 tab Azithromycin [Zithromax Z Pack] 1 tab PO DIRECTED #6 tab Is patient prescribed a controlled substance at d/c from ED?: No Referrals: Gerber Grissom MD [Primary Care Provider] - 1-2 days Time of Disposition: 16:23
[2021-12-28] MEDS ORDERED: AZITHROMYCIN 500 MG TAB PO STA (16:27)
[2021-12-28 18:26] VITALS: TEMP 97.6
[2021-12-28 18:37] VITALS: BP 122/71; PULSE 80; RESP 20
== END 2021-12-28 18:50 | disposition home or self-care (01) ==
LOC: EC 13:25
DX: J44.1 Chronic obstructive pulmonary disease with (acute) exacerbation (principal); K21.9 Gastro-esophageal reflux disease without esophagitis; E78.5 Hyperlipidemia, unspecified; M19.90 Unspecified osteoarthritis, unspecified site; Z87.891 Personal history of nicotine dependence; Z20.822 Contact with and (suspected) exposure to COVID-19
CPT/HCPCS: 99285 ×2; 96374 ×2; 36415; 94640 ×2; 93005; 83880; 80053; 83605; 84484; 85025; 85610; 85730; 87502; 87635; 71046; 74018; J2930

== ENCOUNTER 2022-01-24 10:13 | Inpatient (IN) | payer MEDICARE ==
--- NOTE | 2022-01-24 10:52 | XR ---
EXAMINATION TYPE: XR chest 2V DATE OF EXAM: 01/24/2022 COMPARISON: 12/28/2021 TECHNIQUE: PA and lateral views submitted. HISTORY: Difficulty breathing FINDINGS: Diffuse hyperinflation. Atherosclerotic change aorta. Degenerative change of the spine. There is righ t lower lobe infiltrate extending into the costophrenic angle. No overt failure. IMPRESSION: 1. New right lower lobe infiltrate extending the costophrenic angle correlate for pneumonia. 2. Diffuse COPD.
[2022-01-24 10:55] LABS: Calcium 8.9 mg/dL (8.4-10.2); Total Bilirubin 0.8 mg/dL (0.2-1.3); Total Protein 7.1 g/dL (6.3-8.2)
[2022-01-24 10:58] LABS: Prothrombin Time 10.3 sec (9.0-12.0)
--- NOTE | 2022-01-24 11:01 | ED ---
SOB HPI - General Chief Complaint: Shortness of Breath Stated Complaint: PATTI Time Seen by Provider: 01/24/22 10:21 Source: patient, EMS, RN notes reviewed Mode of arrival: EMS Limitations: no limitations - History of Present Illness Initial Comments: Patient is a 76-year-old male presenting to the emergency room via EMS with complaints of worsening shortness of breath over the last week requiring an increase from 3 L nasal cannula to 4 L nasal cannula with shortness of breath at rest and occasional pain with inspiration on the right side. He denies a productive cough. He does continue to smoke but reports decrease in the amount he has been smoking over the last week. He denies any chest pain not related to inspiration, abdominal pain, nausea, vomiting, altered mental status, lethargy, headache, dizziness, fevers or chills. He denies any known exposure to COVID or influenza. In addition to his chronic hypoxemia secondary to COPD with home oxygen he has a past medical history significant for chronic hepatitis C with liver impairment, psoriasis, peripheral vascular disease, arthritis, hyperlipidemia and GERD. - Related Data Home Medications Medication Instructions Recorded Confirmed Ergocalciferol [Vitamin D2 50,000 unit PO Q30D 08/17/18 01/24/22 (DRISDOL)] traMADol HCL [Ultram] 50 mg PO BID PRN 08/17/18 01/24/22 Albuterol Sulfate [Ventolin HFA] 2 puff INHALATION RT-Q6H PRN 01/20/20 01/24/22 Multivitamins, Thera [Multivitamin 1 tab PO DAILY 01/20/20 01/24/22 (formulary)] OLANZapine [ZyPREXA] 2.5 mg PO TID 01/20/20 01/24/22 Albuterol Inhaler [Ventolin Hfa 1 puff INHALATION RT-BID PRN 01/24/22 01/24/22 Inhaler] Budesonide [Pulmicort] 0.5 mg INHALATION RT-BID 01/24/22 01/24/22 Docusate [Colace] 100 mg PO BID PRN 01/24/22 01/24/22 Ipratropium-Albuterol Nebulize 3 ml INHALATION RT-QID 01/24/22 01/24/22 [Duoneb 0.5 mg-3 mg/3 ml Soln] LORazepam [Ativan] 0.5 mg PO HS PRN 01/24/22 01/24/22 Previous Rx's Medication Instructions Recorded FLUoxetine HCL [PROzac] 20 mg PO DAILY #30 cap 10/04/18 Budesonide-Formot 160-4.5 Mcg 2 puff INHALATION RT-BID #1 puff 04/20/20 [Symbicort 160-4.5 Mcg Inhaler] Furosemide [Lasix] 20 mg PO DAILY #90 tab 04/20/20 Losartan [Cozaar] 50 mg PO DAILY #10 tab 04/20/20 Allergies Allergy/AdvReac Type Severity Reaction Status Date / Time No Known Allergies Allergy Verified 01/24/22 12:36 Review of Systems ROS Statement: Those systems with pertinent positive or pertinent negative responses have been documented in the HPI. ROS Other: All systems not noted in ROS Statement are negative. 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 History of Any Multi-Drug Resistant Organisms: MRSA Date of last positivie culture/infection: 08/27/18 MDRO Source:: BRONCH WASH Past Surgical History: Appendectomy, Back Surgery, Joint Replacement Additional Past Surgical History / Comment(s): Lumbar laminectomy/fusion, bilateral total hip replacements, bronchoscopy, colonoscopy. Past Anesthesia/Blood Transfusion Reactions: No Reported Reaction Additional Past Anesthesia/Blood Transfusion Reaction / Comment(s): Pt received blood with hip surgery Past Psychological History: No Psychological Hx Reported Smoking Status: Former smoker Past Alcohol Use History: None Reported Past Drug Use History: None Reported - Past Family History Father Family Medical History: Myocardial Infarction ([place]) Additional Family Medical History / Comment(s): Father of a [place] at the age of 70yrs. Mother Family Medical History: No Reported History Additional Family Medical History / Comment(s): Pt states mother was healthy General Exam Limitations: no limitations General appearance: alert, in no apparent distress, cachectic Head exam: Present: atraumatic, normocephalic, normal inspection Eye exam: Present: normal appearance, PERRL, EOMI. Absent: scleral icterus, conjunctival injection, periorbital swelling ENT exam: Present: normal exam, mucous membranes moist Neck exam: Present: normal inspection, full ROM Respiratory exam: Present: rales (Right mid to lower anteriorly), chest wall tenderness (Right mid to lower), accessory muscle use (Occasional pursed lip breathing), decreased breath sounds (Bibasilar). Absent: respiratory distress, wheezes, rhonchi, stridor Cardiovascular Exam: Present: regular rate, normal rhythm, normal heart sounds, systolic murmur. Absent: diastolic murmur, rubs, gallop, clicks GI/Abdominal exam: Present: soft, normal bowel sounds. Absent: distended, tenderness, guarding, rebound, rigid Rectal exam: Present: deferred Extremities exam: Present: normal inspection. Absent: pedal edema, joint swelling Back exam: Present: normal inspection Neurological exam: Present: alert, oriented X3, CN II-XII intact Psychiatric exam: Present: normal affect, normal mood Skin exam: Present: dry, other (Scattered psoriatic patches) Course Vital Signs 01/24/22 10:17 Temperature 97.6 F Pulse Rate 106 H Respiratory 22 Rate Blood Pressure 107/59 O2 Sat by Pulse 96 Oximetry Medical Decision Making - Medical Decision Making 76-year-old male presenting with increase in chronic shortness of breath 1 week with pain with inspiration on the right side at times. Denies any fevers or cough. Concern for right mid to lower lobe pneumonia due to Rales noted above right anterior mid to lower lobes with decreased breath sounds bilaterally. No current wheeze no indication for IV steroids or nebulized treatment at this time. Will obtain chest x-ray along with CBC, CMP, troponin, cephid, EKG, proBNP and d-dimer. EKG interpreted by me shows sinus tachycardia with left atrial enlargement consistent with pulmonary disease. Unchanged from last EKG. Chest x-ray image interpreted by me shows right mid to lower lobe infiltrate and hyperaeration consistent with COPD. Radiologist report also reviewed. D-dimer elevated at 1.14 low probability for PE likely elevated due to age however given shortness of breath with pain with inspiration on right intermittently will obtain CT of the chest after IV fluid bolus hydration as BMP revealed elevated bun at 27 creatinine normal at 1.03. Compensated respiratory acidosis noted with a bicarb elevated at 41 with compensated chloride at 84. Sodium slightly low at 131 potassium normal. Mild anemia noted and mild leukocytosis with a WBC of 11.4. Will start on antibiotic therapy pneumonia with cefazolin and Zithromax after blood cultures are drawn. Lactic acid normal. ProBNP without evidence of volume overload. Troponin negative. Salt for Covid flu and RSV all negative. Will await CTA prior to contacting primary care provider in regards to for need for admission for pneumonia. CTA of the chest image interpreted by me reveals no pulmonary emboli, redemonstrated right middle to lower lobe pneumonia. Large aorta demonstrated without dissection. Radiologist report also reviewed. Will proceed with plan for admission for pneumonia. Venous blood gas pending. Spoke with Dr. Grissom patient's primary care provider regarding presentation and findings as outlined above. Accepting of admission for pneumonia. Discussed pulmonary consult. Will place pulmonary on consult and resume home medications. No further orders received at this time. Case discussed with Dr. Cabezas - Lab Data Result diagrams: 01/24/22 10:35 01/24/22 10:35 Lab Results 01/24/22 01/24/22 01/24/22 Range/Units 10:34 10:35 10:35 WBC 11.4 H (3.8-10.6) k/uL RBC 3.56 L (4.30-5.90) m/uL Hgb 11.5 L (13.0-17.5) gm/dL Hct 34.8 L (39.0-53.0) % MCV 97.7 (80.0-100.0) fL MCH 32.4 (25.0-35.0) pg MCHC 33.2 (31.0-37.0) g/dL RDW 14.8 (11.5-15.5) % Plt Count 220 (150-450) k/uL MPV 10.2 Neutrophils % 86 % Lymphocytes % 5 % Monocytes % 6 % Eosinophils % 0 % Basophils % 1 % Neutrophils # 9.8 H (1.3-7.7) k/uL Lymphocytes # 0.6 L (1.0-4.8) k/uL Monocytes # 0.7 (0-1.0) k/uL Eosinophils # 0.0 (0-0.7) k/uL Basophils # 0.1 (0-0.2) k/uL Hypochromasia Slight PT 10.3 (9.0-12.0) sec INR 1.0 (<1.2) APTT 29.0 (22.0-30.0) sec D-Dimer 1.14 H (<0.60) mg/L FEU Sodium (137-145) mmol/L Potassium (3.5-5.1) mmol/L Chloride (98-107) mmol/L Carbon Dioxide (22-30) mmol/L Anion Gap mmol/L BUN (9-20) mg/dL Creatinine (0.66-1.25) mg/dL Est GFR (CKD-EPI)AfAm (>60 ml/min/1.73 sqM) Est GFR (CKD-EPI)NonAf (>60 ml/min/1.73 sqM) Glucose (74-99) mg/dL Plasma Lactic Acid Gabe (0.7-2.0) mmol/L Calcium (8.4-10.2) mg/dL Total Bilirubin (0.2-1.3) mg/dL AST (17-59) U/L ALT (4-49) U/L Alkaline Phosphatase (38-126) U/L Troponin I (0.000-0.034) ng/mL NT-Pro-B Natriuret Pep 285 pg/mL Total Protein (6.3-8.2) g/dL Albumin (3.5-5.0) g/dL Influenza Type A (PCR) (Not Detectd) Influenza Type B (PCR) (Not Detectd) RSV (PCR) (Not Detectd) SARS-CoV-2 (PCR) (Not Detectd) 01/24/22 01/24/22 01/24/22 Range/Units 10:35 10:35 10:35 WBC (3.8-10.6) k/uL RBC (4.30-5.90) m/uL Hgb (13.0-17.5) gm/dL Hct (39.0-53.0) % MCV (80.0-100.0) fL MCH (25.0-35.0) pg MCHC (31.0-37.0) g/dL RDW (11.5-15.5) % Plt Count (150-450) k/uL MPV Neutrophils % % Lymphocytes % % Monocytes % % Eosinophils % % Basophils % % Neutrophils # (1.3-7.7) k/uL Lymphocytes # (1.0-4.8) k/uL Monocytes # (0-1.0) k/uL Eosinophils # (0-0.7) k/uL Basophils # (0-0.2) k/uL Hypochromasia PT (9.0-12.0) sec INR (<1.2) APTT (22.0-30.0) sec D-Dimer (<0.60) mg/L FEU Sodium 131 L (137-145) mmol/L Potassium 4.5 (3.5-5.1) mmol/L Chloride 84 L (98-107) mmol/L Carbon Dioxide 41 H* (22-30) mmol/L Anion Gap 6 mmol/L BUN 27 H (9-20) mg/dL Creatinine 1.03 (0.66-1.25) mg/dL Est GFR (CKD-EPI)AfAm 83 (>60 ml/min/1.73 sqM) Est GFR (CKD-EPI)NonAf 72 (>60 ml/min/1.73 sqM) Glucose 121 H (74-99) mg/dL Plasma Lactic Acid Gabe 1.7 (0.7-2.0) mmol/L Calcium 8.9 (8.4-10.2) mg/dL Total Bilirubin 0.8 (0.2-1.3) mg/dL AST 40 (17-59) U/L ALT 31 (4-49) U/L Alkaline Phosphatase 67 (38-126) U/L Troponin I <0.012 (0.000-0.034) ng/mL NT-Pro-B Natriuret Pep pg/mL Total Protein 7.1 (6.3-8.2) g/dL Albumin 4.0 (3.5-5.0) g/dL Influenza Type A (PCR) (Not Detectd) Influenza Type B (PCR) (Not Detectd) RSV (PCR) (Not Detectd) SARS-CoV-2 (PCR) (Not Detectd) 01/24/22 Range/Units 10:50 WBC (3.8-10.6) k/uL RBC (4.30-5.90) m/uL Hgb (13.0-17.5) gm/dL Hct (39.0-53.0) % MCV (80.0-100.0) fL MCH (25.0-35.0) pg MCHC (31.0-37.0) g/dL RDW (11.5-15.5) % Plt Count (150-450) k/uL MPV Neutrophils % % Lymphocytes % % Monocytes % % Eosinophils % % Basophils % % Neutrophils # (1.3-7.7) k/uL Lymphocytes # (1.0-4.8) k/uL Monocytes # (0-1.0) k/uL Eosinophils # (0-0.7) k/uL Basophils # (0-0.2) k/uL Hypochromasia PT (9.0-12.0) sec INR (<1.2) APTT (22.0-30.0) sec D-Dimer (<0.60) mg/L FEU Sodium (137-145) mmol/L Potassium (3.5-5.1) mmol/L Chloride (98-107) mmol/L Carbon Dioxide (22-30) mmol/L Anion Gap mmol/L BUN (9-20) mg/dL Creatinine (0.66-1.25) mg/dL Est GFR (CKD-EPI)AfAm (>60 ml/min/1.73 sqM) Est GFR (CKD-EPI)NonAf (>60 ml/min/1.73 sqM) Glucose (74-99) mg/dL Plasma Lactic Acid Gabe (0.7-2.0) mmol/L Calcium (8.4-10.2) mg/dL Total Bilirubin (0.2-1.3) mg/dL AST (17-59) U/L ALT (4-49) U/L Alkaline Phosphatase (38-126) U/L Troponin I (0.000-0.034) ng/mL NT-Pro-B Natriuret Pep pg/mL Total Protein (6.3-8.2) g/dL Albumin (3.5-5.0) g/dL Influenza Type A (PCR) Not Detected (Not Detectd) Influenza Type B (PCR) Not Detected (Not Detectd) RSV (PCR) Not Detected (Not Detectd) SARS-CoV-2 (PCR) Not Detected (Not Detectd) - EKG Data EKG Comments: EKG completed at 1053 interpreted by me shows sinus tachycardia, left atrial enlargement, moderate intraventricular conduction delay, ventricular rate 106 bpm, AK interval 144 ms, QRS duration 121 ms, QT/QTC 393/[birth year]1954 mi lliseconds, PRT axes 81, 39, 71 - Radiology Data Radiology results: report reviewed, image reviewed Chest x-ray two-view impression per radiologist new right lower lobe infiltrate and costophrenic angle correlate for pneumonia. Diffuse COPD. CT chest angiography for PE interpretation by radiologist no CT evidence for acute pulmonary embolism. Moderate to advanced emphysematous changes with new area of consolidation involving the periphery of the right middle lobe and inferior right lower lobe. Correlate for multifocal pneumonia. Ascending aortic aneurysm up to 4.9 cm. Disposition Clinical Impression: Pneumonia Disposition: ADMITTED IP TO THIS [facility] Condition: Stable Is patient prescribed a controlled substance at d/c from ED?: No Referrals: Gerber Grissom MD [Primary Care Provider] - 1-2 days Time of Disposition: 13:02
[2022-01-24 11:07] LABS: Basophils # (A) 0.1 k/uL (0-0.2); Basophils % (A) 1 %; Eosinophils % (A) 0 %; HCT 34.8 % (39.0-53.0); HGB 11.5 gm/dL (13.0-17.5); Hypochromasia Slight; Lymphocytes # (A) 0.6 k/uL (1.0-4.8); Lymphocytes % (A) 5 %; MCH 32.4 pg (25.0-35.0); MCHC 33.2 g/dL (31.0-37.0); MCV 97.7 fL (80.0-100.0); Mean Platelet Volume 10.2; Monocytes # (A) 0.7 k/uL (0-1.0); Monocytes % (A) 6 %; Neutrophils # (A) 9.8 k/uL (1.3-7.7); Neutrophils % (A) 86 %; Platelet Count 220 k/uL (150-450); RBC 3.56 m/uL (4.30-5.90); RDW 14.8 % (11.5-15.5); WBC 11.4 k/uL (3.8-10.6)
[2022-01-24 11:13] LABS: Potassium 4.5 mmol/L (3.5-5.1)
--- NOTE | 2022-01-24 12:55 | CT ---
EXAMINATION TYPE: CT chest angio for PE DATE OF EXAM: 01/24/2022 COMPARISON: CTA chest April 15, 2020 and older study September 05, 2018. HISTORY: Chest pain, SOB CT DLP: 224.1 mGycm. Automated Exposure Control for Dose Reduction was Utilized. CONTRAST: CTA scan of the thorax is performed with IV Contrast, patient injected with 100 mL of Isovue 370, pul monary embolism protocol. MIP Images are created on CT scanner and reviewed. FINDINGS: LUNGS: Moderate to advanced underlying emphysematous change is redemonstrated with mild biapical pleu ral/parenchymal scarring. Stable focal nodular scarring posterior right upper lobe axial image 34 fro m prior studies. Additional scattered mild to moderate linear scarring bilaterally is redemonstrated with more focal consolidation in the right middle lobe in the periphery of the inferior right lower l obe on current study. No pleural effusion or pneumothorax is evident. MEDIASTINUM: There is satisfactory enhancement of the pulmonary artery and its branches, there is no CT evidence for pulmonary embolism. Ascending aortic aneurysm is redemonstrated measuring up to 4.9 c m at the aortic root coronal image 81. Aorta measures up to 4.6 cm axial image 91. There are no great er than 1 cm hilar or mediastinal lymph nodes. No cardiomegaly or pericardial effusion is seen. OTHER: Slight scoliotic curvature. IMPRESSION: 1. No CT evidence for acute pulmonary embolism. 2. Moderate to advanced emphysematous change with new areas of consolidation involving the periphery of the right middle lobe and inferior right lower lobe. Correlate for multifocal pneumonia. 3. Ascending aortic aneurysm up to 4.9 cm on current study is noted.
[2022-01-24] MEDS ORDERED: PNEUMONIA PROTOCOL UTILIZED 1 EACH MISC PO PRN (13:00)
[2022-01-24] MEDS: SODIUM CHLORIDE 0.9% 1,000 ML IV SCH ×2 (13:41→23:44)
[2022-01-24 14:59] LABS: VBG PH 7.61 (7.31-7.41)
[2022-01-24] MEDS: IPRATROPIUM-ALBUTEROL 3 ML NEB INHALATION SCH ×2 (16:16→19:50)
[2022-01-24] MEDS: OLANZapine 2.5 MG TAB PO SCH ×2 (17:02→23:44)
[2022-01-24] MEDS ORDERED: DOCUSATE 100 MG CAP PO PRN (18:47)
[2022-01-24] MEDS: SYMBICORT 160-4.5 MCG INHALER INHALATION SCH (19:50)
[2022-01-24] MEDS ORDERED: BUDESONIDE 0.5 MG/2 ML NEBU INHALATION SCH (20:00)
[2022-01-24] MEDS: traMADol 50 MG TAB PO PRN (20:22)
[2022-01-24] MEDS: LORazepam 0.5 MG TAB PO PRN (20:22)
--- NOTE | 2022-01-25 08:13 | XR ---
EXAMINATION TYPE: XR chest 1V portable DATE OF EXAM: 01/25/2022 HISTORY: Shortness of breath. COMPARISON: None. TECHNIQUE: Single view of the chest is submitted. FINDINGS: Demonstrated are scattered senescent parenchymal change. Moderate to severe upper lobe emphysematous change. Right basilar infiltrate persists although slightly improved. The heart is stable. Hilar and mediastinal structures are within normal limits. Degenerative changes are seen of the dorsal spine. IMPRESSION: 1. Right basilar infiltrate persists although slightly improved.
[2022-01-25] MEDS: IPRATROPIUM-ALBUTEROL 3 ML NEB INHALATION SCH ×4 (08:38→20:44)
[2022-01-25] MEDS: SYMBICORT 160-4.5 MCG INHALER INHALATION SCH ×2 (08:38→20:44)
[2022-01-25] MEDS: LOSARTAN 50 MG TAB PO SCH (10:02)
[2022-01-25] MEDS: FUROSEMIDE 20 MG TAB PO SCH (10:02)
[2022-01-25] MEDS: MULTIVITAMINS, THERA 1 EACH TAB PO SCH (10:02)
[2022-01-25] MEDS: FLUoxetine HCL 20 MG CAP PO SCH (10:02)
[2022-01-25] MEDS: OLANZapine 2.5 MG TAB PO SCH ×3 (10:02→22:00)
[2022-01-25] MEDS: AZITHROMYCIN 500 MG TAB PO SCH (10:02)
[2022-01-25] MEDS: SODIUM CHLORIDE 0.9% 1,000 ML IV SCH ×2 (10:03→22:00)
[2022-01-25] MEDS: methylPREDNISolone SOD SUCCI 40 MG/ML 1 ML VIAL IV SCH ×2 (11:46→18:01)
--- NOTE | 2022-01-25 12:37 | P.CNPUL ---
History of Present Illness Consult date: 01/25/22 Requesting physician: Gerber Grissom Reason for consult: dyspnea, COPD Chief complaint: Shortness of breath, cough, congestion History of present illness: This is a very pleasant 76-year-old male patient with a known history of severe oxygen-dependent chronic obstructive pulmonary disease, hyperlipidemia, chronic hepatitis C, amyloidosis mostly involving skin on the neck, chronic tobacco dependence. He presented here to the emergency room yesterday with a 2 to three-day history of increasing shortness of breath cough and congestion. He increase his oxygen from 3 L to 4 L at home without much improvement. He does continue to smoke. Chest x-ray reveals evidence of a new right lower lobe infiltrate extending to the costophrenic angle suspicious for pneumonia. Diffuse COPD. CT angiogram revealed no evidence of acute pulmonary embolism. There is moderate to advanced emphysematous changes with new areas of consolidation involving the periphery of the right middle lobe and inferior right lower lobe. Ascending aortic aneurysm measuring 4.9 cm. White count 11.4. Hemoglobin 11.5. Lymphocytes 0.6. D-dimer 1.14. Sodium 131. Potassium 4.5. Bicarb 41. BUN 27. Creatinine 1.03. Glucose 121. Troponin negative 1. ProBNP 285. Influenza screen negative. RSV screen negative. COVID-19 screen negative. He is seen today in consultation on the regular medical floor. Currently resting comfortably in bed. Awake and alert in no acute distress. He does have a loose nonproductive cough. No fever or chills. No hemoptysis. Review of Systems REVIEW OF SYSTEMS: CONSTITUTIONAL: Denies any recent significant weight loss or weight gain. EYES: Denies change in vision. EARS, NOSE, MOUTH, THROAT: Denies headaches, denies sore throat. CARDIOVASCULAR: Denies chest pain, palpitations or syncopal episodes. RESPIRATORY: Positive for shortness of breath, cough, congestion no hemoptysis. GASTROINTESTINAL: Denies change in appetite, denies abdominal pain GENITOURINARY: Denies hematuria, denies infections. MUSKULOSKELETAL: Denies pain, denies swelling. INTEGUMENTARY: Denies rash, denies eczema. NEUROLOGICAL: Denies recent memory loss, no recent seizure activity. PSYCHIATRIC: Denies anxiety, denies depression. HEMATOLOGIC/LYMPHATIC: Denies anemia, denies enlarged lymph nodes. 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 History of Any Multi-Drug Resistant Organisms: MRSA Date of last positivie culture/infection: 08/27/18 MDRO Source:: BRONCH WASH Past Surgical History: Appendectomy, Back Surgery, Joint Replacement Additional Past Surgical History / Comment(s): Lumbar laminectomy/fusion, rebecca ateral total hip replacements, bronchoscopy, colonoscopy. Past Anesthesia/Blood Transfusion Reactions: No Reported Reaction Additional Past Anesthesia/Blood Transfusion Reaction / Comment(s): Pt received blood with hip surgery Past Psychological History: No Psychological Hx Reported Additional Psychological History / Comment(s): Pt has his adult grandson living with him. He denies anxiety or depression but is on Prozac. Pt is on home oxygen. He drives. Smoking Status: Current every day smoker Past Alcohol Use History: None Reported Additional Past Alcohol Use History / Comment(s): Pt started smoking in 1968 and is a half a ppd smoker. Past Drug Use History: None Reported - Past Family History Father Family Medical History: Myocardial Infarction ([place]) Additional Family Medical History / Comment(s): Father of a [place] at the age of 70yrs. Mother Family Medical History: No Reported History Additional Family Medical History / Comment(s): Pt states mother was healthy Medications and Allergies Home Medications Medication Instructions Recorded Confirmed Type Ergocalciferol [Vitamin D2 50,000 unit PO Q30D 08/17/18 01/24/22 History (DRISDOL)] traMADol HCL [Ultram] 50 mg PO BID PRN 08/17/18 01/24/22 History FLUoxetine HCL [PROzac] 20 mg PO DAILY #30 cap 10/04/18 01/24/22 Rx Albuterol Sulfate [Ventolin HFA] 2 puff INHALATION RT-Q6H PRN 01/20/20 01/24/22 History Multivitamins, Thera [Multivitamin 1 tab PO DAILY 01/20/20 01/24/22 History (formulary)] OLANZapine [ZyPREXA] 2.5 mg PO TID 01/20/20 01/24/22 History Budesonide-Formot 160-4.5 Mcg 2 puff INHALATION RT-BID #1 puff 04/20/20 01/24/22 Rx [Symbicort 160-4.5 Mcg Inhaler] Furosemide [Lasix] 20 mg PO DAILY #90 tab 04/20/20 01/24/22 Rx Losartan [Cozaar] 50 mg PO DAILY #10 tab 04/20/20 01/24/22 Rx Albuterol Inhaler [Ventolin Hfa 1 puff INHALATION RT-BID PRN 01/24/22 01/24/22 History Inhaler] Budesonide [Pulmicort] 0.5 mg INHALATION RT-BID 01/24/22 01/24/22 History Docusate [Colace] 100 mg PO BID PRN 01/24/22 01/24/22 History Ipratropium-Albuterol Nebulize 3 ml INHALATION RT-QID 01/24/22 01/24/22 History [Duoneb 0.5 mg-3 mg/3 ml Soln] LORazepam [Ativan] 0.5 mg PO HS PRN 01/24/22 01/24/22 History Allergies Allergy/AdvReac Type Severity Reaction Status Date / Time No Known Allergies Allergy Verified 01/24/22 12:36 Physical Exam Vitals: Vital Signs Temp Pulse Pulse Resp BP BP Pulse Ox 01/25/22 12:06 96 01/25/22 11:54 96 01/25/22 10:27 102 H 14 01/25/22 08:53 106 H 01/25/22 08:38 104 H 97 01/25/22 07:19 98.3 F 102 H 14 127/74 97 01/25/22 01:46 99.3 F 113 H 18 123/72 98 01/25/22 00:35 40 H 01/24/22 19:58 112 H 01/24/22 19:50 108 H 01/24/22 19:28 98.2 F 122 H 23 162/90 92 L 01/24/22 17:50 98.3 F 116 H 12 144/73 92 L 01/24/22 16:50 110 H 20 115/60 93 L 01/24/22 16:30 103 H 01/24/22 16:15 100 Intake and Output 01/24/22 01/25/22 01/25/22 22:59 06:59 14:59 Intake Total 50 Balance 50 Intake: Oral 50 Other: Voiding Method Bedside Commode # Voids 3 # Bowel Movements 1 Weight 62.596 kg GENERAL EXAM: Alert, pleasant 76-year-old male patient, on 8 L nasal cannula, comfortable in no apparent distress. HEAD: Normocephalic. EYES: Normal reaction of pupils, equal size. NOSE: Clear with pink turbinates. THROAT: No erythema or exudates. NECK: No masses, no JVD. CHEST: No chest wall deformity. LUNGS: Equal air entry with few scattered rhonchi, end expiratory wheeze, diminished. CVS: S1 and S2 normal with no audible murmur, regular rhythm. ABDOMEN: No hepatosplenomegaly, normal bowel sounds, no guarding or rigidity. SPINE: No scoliosis or deformity SKIN: No rashes CENTRAL NERVOUS SYSTEM: No focal deficits, tone is normal in all 4 extremities. EXTREMITIES: There is no peripheral edema. No clubbing, no cyanosis. Peripheral pulses are intact. Results - Laboratory Findings CBC and BMP: 01/24/22 10:35 01/24/22 10:35 PT/INR, D-dimer PT 10.3 sec (9.0-12.0) 01/24/22 10:35 INR 1.0 (<1.2) 01/24/22 10:35 D-Dimer 1.14 mg/L FEU (<0.60) H 01/24/22 10:35 Abnormal lab findings: Abnormal Labs 01/24/22 01/24/22 01/24/22 10:35 10:35 10:35 WBC 11.4 H RBC 3.56 L Hgb 11.5 L Hct 34.8 L Neutrophils # 9.8 H Lymphocytes # 0.6 L D-Dimer 1.14 H VBG pH VBG pCO2 VBG HCO3 Sodium 131 L Chloride 84 L Carbon Dioxide 41 H* BUN 27 H Glucose 121 H 01/24/22 13:59 WBC RBC Hgb Hct Neutrophils # Lymphocytes # D-Dimer VBG pH 7.61 H* VBG pCO2 29 L VBG HCO3 30 H Sodium Chloride Carbon Dioxide BUN Glucose - Diagnostic Findings Chest x-ray: image reviewed CT scan - chest: image reviewed Assessment and Plan Assessment: Acute hypoxemic respiratory failure secondary to an acute community-acquired pneumonia Acute exacerbation of severe oxygen dependent chronic obstructive pulmonary d isease secondary to above Chronic and ongoing tobacco dependence of greater than 50 years Hypertension Hyperlipidemia, history of hepatitis C History of thoracic aortic aneurysm currently measuring 4.9 cm History of amyloidosis mostly involving the skin on the neck Plan: The patient was seen and evaluated Chest x-ray, CAT scans and labs reviewed Continued on ceftriaxone and azithromycin Continued on Symbicort, IV Solu-Medrol, bronchodilators Titrate the FiO2 as tolerated We will continue to follow and make further recommendations based on his clinical status I have personally seen and examined the patient, performed the documentation and the assessment and plan as written. Number of minutes spent on the visit: 20.
[2022-01-25] MEDS ORDERED: NON FORMULARY DRUG (Albuterol Inhaler 90 MCG Puff) INHALATION PRN (14:07)
[2022-01-25] MEDS: NICOTINE 14MG/24HR PATCH TRANSDERM SCH (18:02)
[2022-01-25] MEDS: traMADol 50 MG TAB PO PRN (21:59)
--- NOTE | 2022-01-25 22:32 | PN ---
PROGRESS NOTE DATE OF SERVICE: 01/25/2022 CHIEF COMPLAINT: 1. General debility and weakness. 2. COPD. 3. Pneumonitis. HISTORY OF PRESENT ILLNESS: This gentleman is doing fairly well, but he is still extremely dehydrated. He is awake, alert, and oriented. He is not coughing. PHYSICAL EXAMINATION: HEAD, EARS, EYES, NOSE, AND MOUTH: Normal. CHEST: Demonstrates decreased breath sounds throughout due to his emphysema. There are scattered rales at the bases posteriorly. CARDIAC: Normal. ABDOMEN: Scaphoid. IMPRESSION: 1. Bronchopneumonia. 2. Exacerbation of chronic obstructive pulmonary disease. 3. Dehydration. 4. Facial abrasions secondary to fall. PLAN: Continue with IV fluids, rehydration, antibiotics, and updrafts. MMODL / LISAN: [id number] /
[2022-01-26] MEDS: methylPREDNISolone SOD SUCCI 40 MG/ML 1 ML VIAL IV SCH ×2 (00:30→06:07)
[2022-01-26] MEDS: SODIUM CHLORIDE 0.9% 1,000 ML IV SCH ×2 (06:04→17:29)
[2022-01-26] MEDS: IPRATROPIUM-ALBUTEROL 3 ML NEB INHALATION SCH ×4 (07:34→20:16)
[2022-01-26] MEDS: SYMBICORT 160-4.5 MCG INHALER INHALATION SCH ×2 (07:34→20:16)
--- NOTE | 2022-01-26 07:36 | HP ---
HISTORY AND PHYSICAL CHIEF COMPLAINT: Falling, weakness, and debility. HISTORY OF PRESENT ILLNESS: This is another admission for this 76-year-old white male with severe COPD. He has actually done fairly well over the last 2 to 3 years, even though he continues to smoke. He came to the emergency room though after he became quite weak and fell a few times. He presented with abrasions in the right side of the forehead. He is very dehydrated. REVIEW OF SYSTEMS: He denies any headaches, focal neurologic deficits, lethargy, confusion, change in vision or hearing, neck pain, chest pain, cough. DICTATION ENDS HERE MMODL / IJN: [id number] /
[2022-01-26] MEDS: FLUoxetine HCL 20 MG CAP PO SCH (09:55)
[2022-01-26] MEDS: MULTIVITAMINS, THERA 1 EACH TAB PO SCH (09:55)
[2022-01-26] MEDS: OLANZapine 2.5 MG TAB PO SCH ×3 (09:55→21:50)
[2022-01-26] MEDS: LOSARTAN 50 MG TAB PO SCH (09:55)
[2022-01-26] MEDS: FUROSEMIDE 20 MG TAB PO SCH (09:55)
[2022-01-26] MEDS: AZITHROMYCIN 500 MG TAB PO SCH (09:55)
[2022-01-26] MEDS: NICOTINE 14MG/24HR PATCH TRANSDERM SCH (09:56)
--- NOTE | 2022-01-26 11:54 | P.PN ---
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 He presented here to the emergency room yesterday with a 2 to three-day history of increasing shortness of breath cough and congestion. He increase his oxygen from 3 L to 4 L at home without much improvement. He does continue to smoke. Chest x-ray reveals evidence of a new right lower lobe infiltrate extending to the costophrenic angle suspicious for pneumonia. Diffuse COPD. CT angiogram revealed no evidence of acute pulmonary embolism. There is moderate to advanced emphysematous changes with new areas of consolidation involving the periphery of the right middle lobe and inferior right lower lobe. Ascending aortic aneurysm measuring 4.9 cm. White count 11.4. Hemoglobin 11.5. Lymphocytes 0.6. D-dimer 1.14. Sodium 131. Potassium 4.5. Bicarb 41. BUN 27. Creatinine 1.03. Glucose 121. Troponin negative 1. ProBNP 285. Influenza screen negative. RSV screen negative. COVID-19 screen negative. He is seen today in consultation on the regular medical floor. Currently resting comfortably in bed. Awake and alert in no acute distress. He does have a loose nonproductive cough. No fever or chills. No hemoptysis. The patient is seen today 01/26/2022 in follow-up on the regular medical floor. He is currently sitting up in bed. Awake and alert in no acute distress. Feeling better today compared to yesterday. Still on 8 L high flow nasal cannula. O2 saturations 95-96%. He is afebrile. Hemodynamically stable. Blood cultures reveal no growth. Sputum culture reveals no growth. He is continued on Symbicort, DuoNeb inhalations, IV Solu-Medrol. NicoDerm patch in place. Antibiotics in the form of Zosyn and azithromycin. Objective - Vital Signs Vital signs: Vital Signs Temp 98.4 F 01/26/22 08:00 Pulse 110 H 01/26/22 11:33 Resp 16 01/26/22 08:00 BP 130/79 01/26/22 08:00 Pulse Ox 96 01/26/22 08:00 FiO2 Intake & Output 01/25/22 01/26/22 01/26/22 18:59 06:59 18:59 Intake Total 1020 Balance 1020 Intake: Oral 1020 Other: Voiding Method Bedside Commode Bedside Commode # Voids 3 5 # Bowel Movements 3 - Exam GENERAL EXAM: Alert, 76-year-old male patient, on 8 L nasal cannula, comfortable in no apparent distress. HEAD: Normocephalic. EYES: Normal reaction of pupils, equal size. NOSE: Clear with pink turbinates. THROAT: No erythema or exudates. NECK: No masses, no JVD. CHEST: No chest wall deformity. LUNGS: Equal air entry with few scattered rhonchi, end expiratory wheeze, diminished. CVS: S1 and S2 normal with no audible murmur, regular rhythm. ABDOMEN: No hepatosplenomegaly, normal bowel sounds, no guarding or rigidity. SPINE: No scoliosis or deformity SKIN: No rashes CENTRAL NERVOUS SYSTEM: No focal deficits, tone is normal in all 4 extremities. EXTREMITIES: There is no peripheral edema. No clubbing, no cyanosis. Periphera l pulses are intact. - Labs CBC & Chem 7: 01/24/22 10:35 01/24/22 10:35 Labs: Microbiology - Last 24 Hours (Table) 01/24/22 13:00 Sputum Culture - Preliminary Sputum 01/24/22 10:40 Blood Culture - Preliminary Blood No Growth after 24 hours 01/24/22 10:46 Blood Culture - Preliminary Blood No Growth after 24 hours Assessment and Plan Assessment: Acute hypoxemic respiratory failure secondary to an acute community-acquired pneumonia here currently on ceftriaxone and azithromycin. 8 L high flow nasal cannula. Acute exacerbation of severe oxygen dependent chronic obstructive pulmonary disease secondary to above Chronic and ongoing tobacco dependence of greater than 50 years Hypertension Hyperlipidemia, history of hepatitis C History of thoracic aortic aneurysm currently measuring 4.9 cm History of amyloidosis mostly involving the skin on the neck Plan: The patient was seen and evaluated Medications reviewed Continued on ceftriaxone and azithromycin Continued on Symbicort, IV Solu-Medrol, bronchodilators Titrate the FiO2 as tolerated Educated regarding the importance of complete smoking cessation NicoDerm patch applied We will continue to follow I have personally seen and examined the patient, performed the documentation and the assessment and plan as written. Number of minutes spent on the visit: 10.
[2022-01-26] MEDS: methylPREDNISolone SOD SUCCI 125 MG/2 ML VIAL IV SCH ×2 (13:45→17:28)
[2022-01-26] MEDS: traMADol 50 MG TAB PO PRN (13:45)
--- NOTE | 2022-01-26 14:33 | XR ---
EXAMINATION TYPE: XR chest 1V portable DATE OF EXAM: 01/26/2022 COMPARISON: 01/25/2022 HISTORY: Chest pain TECHNIQUE: Single frontal view of the chest is obtained. FINDINGS: There is no focal air space opacity, pleural effusion, or pneumothorax seen. The cardiac silhouette size is within normal limits. The osseous structures are intact. Prominence of the right hilum may reflect a sending aorta aneurysm. Diffuse emphysematous changes. Suspect a degree of inter stitial pulmonary fibrosis. IMPRESSION: 1. Diffuse COPD. 2. Findings right hilum compatible with previously reported ascending aortic aneurysm.
[2022-01-26] MEDS: ACETAMINOPHEN TAB 325 MG TAB PO PRN (21:49)
--- NOTE | 2022-01-26 22:32 | PN ---
PROGRESS NOTE DATE OF SERVICE: 01/26/2022 CHIEF COMPLAINT: Pneumonitis, general debility and weakness with falling. HISTORY OF PRESENT ILLNESS: This gentleman still remains quite weak. Hydration has improved. He has not had a fever. He is still very short of breath. PHYSICAL EXAMINATION: LUNGS: Breath sounds are diminished throughout due to his emphysema. CARDIAC: Normal. ABDOMEN: Flat and soft and nontender. EXTREMITIES: Normal. He is still dehydrated and has very poor residual muscle volume. IMPRESSION: 1. Frequent falling. 2. General debility and failure to thrive. 3. Weakness. 4. Dehydration. 5. Pneumonitis. 6. Chronic obstructive pulmonary disease. PLAN: Continue with current program while adding PT and OT as well as Sales And Marketing Assistant consult. MMODL / IJN: [id number] /
[2022-01-27] MEDS: methylPREDNISolone SOD SUCCI 125 MG/2 ML VIAL IV SCH ×3 (00:01→13:39)
[2022-01-27] MEDS: traMADol 50 MG TAB PO PRN ×2 (00:04→09:48)
[2022-01-27] MEDS: SODIUM CHLORIDE 0.9% 1,000 ML IV SCH ×3 (06:35→23:21)
[2022-01-27] MEDS: SYMBICORT 160-4.5 MCG INHALER INHALATION SCH ×2 (08:10→20:06)
[2022-01-27] MEDS: IPRATROPIUM-ALBUTEROL 3 ML NEB INHALATION SCH ×4 (08:10→20:06)
[2022-01-27] MEDS: AZITHROMYCIN 500 MG TAB PO SCH (09:13)
[2022-01-27] MEDS: MULTIVITAMINS, THERA 1 EACH TAB PO SCH (09:13)
[2022-01-27] MEDS: NICOTINE 14MG/24HR PATCH TRANSDERM SCH (09:13)
[2022-01-27] MEDS: LOSARTAN 50 MG TAB PO SCH (09:13)
[2022-01-27] MEDS: FLUoxetine HCL 20 MG CAP PO SCH (09:13)
[2022-01-27] MEDS: FUROSEMIDE 20 MG TAB PO SCH (09:13)
[2022-01-27] MEDS: OLANZapine 2.5 MG TAB PO SCH ×3 (09:13→23:16)
--- NOTE | 2022-01-27 13:40 | P.PN ---
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 He presented here to the emergency room yesterday with a 2 to three-day history of increasing shortness of breath cough and congestion. He increase his oxygen from 3 L to 4 L at home without much improvement. He does continue to smoke. Chest x-ray reveals evidence of a new right lower lobe infiltrate extending to the costophrenic angle suspicious for pneumonia. Diffuse COPD. CT angiogram revealed no evidence of acute pulmonary embolism. There is moderate to advanced emphysematous changes with new areas of consolidation involving the periphery of the right middle lobe and inferior right lower lobe. Ascending aortic aneurysm measuring 4.9 cm. White count 11.4. Hemoglobin 11.5. Lymphocytes 0.6. D-dimer 1.14. Sodium 131. Potassium 4.5. Bicarb 41. BUN 27. Creatinine 1.03. Glucose 121. Troponin negative 1. ProBNP 285. Influenza screen negative. RSV screen negative. COVID-19 screen negative. He is seen today in consultation on the regular medical floor. Currently resting comfortably in bed. Awake and alert in no acute distress. He does have a loose nonproductive cough. No fever or chills. No hemoptysis. The patient is seen today 01/26/2022 in follow-up on the regular medical floor. He is currently sitting up in bed. Awake and alert in no acute distress. Feeling better today compared to yesterday. Still on 8 L high flow nasal cannula. O2 saturations 95-96%. He is afebrile. Hemodynamically stable. Blood cultures reveal no growth. Sputum culture reveals no growth. He is continued on Symbicort, DuoNeb inhalations, IV Solu-Medrol. NicoDerm patch in place. Antibiotics in the form of Zosyn and azithromycin. The patient is seen today 01/27/2022 in follow-up on the regular medical floor. He is currently sitting up at the bedside. Awake and alert in no acute distress. He did have some dyspnea earlier with exertion. He is still requiring 8 L of high flow nasal cannula to maintain O2 saturations in the low 90s. He has normal saline at 60 ML's per hour. Blood cultures reveal no growth. Sputum culture with Santa. He remains on IV Solu-Medrol, DuoNeb inhalations, Symbicort. NicoDerm patch in place. Antibiotics in form of ceftriaxone. Objective - Vital Signs Vital signs: Vital Signs Temp 98.1 F 01/27/22 07:55 Pulse 112 H 01/27/22 11:52 Resp 32 H 01/27/22 07:55 BP 171/89 01/27/22 07:55 Pulse Ox 96 01/27/22 08:12 FiO2 Intake & Output 01/26/22 01/27/22 01/27/22 18:59 06:59 18:59 Output Total 550 300 Balance -550 -300 Output: Urine 550 300 Other: Voiding Method Bedside Commode Urinal Urinal # Voids 2 3 575 # Bowel Movements 1 - Exam GENERAL EXAM: Alert, 76-year-old male patient, remains on 8 L nasal cannula, comfortable in no apparent distress. HEAD: Normocephalic. EYES: Normal reaction of pupils, equal size. NOSE: Clear with pink turbinates. THROAT: No erythema or exudates. NECK: No masses, no JVD. CHEST: No chest wall deformity. LUNGS: Equal air entry with few scattered rhonchi, end expiratory wheeze, diminished. CVS: S1 and S2 normal with no audible murmur, regular rhythm. ABDOMEN: No hepatosplenomegaly, normal bowel sounds, no guarding or rigidity. SPINE: No scoliosis or deformity SKIN: No rashes CENTRAL NERVOUS SYSTEM: No focal deficits, tone is normal in all 4 extremities. EXTREMITIES: There is no peripheral edema. No clubbing, no cyanosis. Peripheral pulses are intact. - Labs CBC & Chem 7: 01/24/22 10:35 01/24/22 10:35 Labs: Microbiology - Last 24 Hours (Table) 01/24/22 13:00 Gram Stain - Preliminary Sputum Sputum Culture - Preliminary Santa albicans 01/24/22 10:46 Blood Culture - Preliminary Blood No Growth after 72 hours 01/24/22 10:40 Blood Culture - Preliminary Blood No Growth after 48 hours Assessment and Plan Assessment: Acute hypoxemic respiratory failure secondary to an acute community-acquired pneumonia here currently on ceftriaxone and azithromycin. 8 L high flow nasal cannula. 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 Number of minutes spent on the visit: 10.
[2022-01-27 15:27] LABS: ALT 36 U/L (4-49); AST 39 U/L (17-59); African American GFR (CKD) >90 (>60 ml/min/1.73 sqM); Albumin 3.5 g/dL (3.5-5.0); Albumin/Globulin Ratio 1.2; Alkaline Phosphatase 62 U/L (38-126); Anion Gap 6 mmol/L; Basophils % (A) 0 %; Blood Urea Nitrogen 25 mg/dL (9-20); Calcium 8.6 mg/dL (8.4-10.2); Carbon Dioxide 39 mmol/L (22-30); Chloride 93 mmol/L (98-107); Eosinophils % (A) 0 %; Glucose 195 mg/dL (74-99); HCT 35.2 % (39.0-53.0); HGB 11.4 gm/dL (13.0-17.5); Hypochromasia Slight; Lymphocytes # (A) 0.4 k/uL (1.0-4.8); Lymphocytes % (A) 6 %; MCH 31.3 pg (25.0-35.0); MCHC 32.3 g/dL (31.0-37.0); Mean Platelet Volume 8.5; Monocytes # (A) 0.4 k/uL (0-1.0); Monocytes % (A) 5 %; Neutrophils # (A) 6.1 k/uL (1.3-7.7); Neutrophils % (A) 87 %; Non-African American GFR(CKD) 81 (>60 ml/min/1.73 sqM); Platelet Count 345 k/uL (150-450); Potassium 3.7 mmol/L (3.5-5.1); RBC 3.63 m/uL (4.30-5.90); RDW 13.1 % (11.5-15.5); Sodium 138 mmol/L (137-145); Total Bilirubin 0.2 mg/dL (0.2-1.3); Total Protein 6.5 g/dL (6.3-8.2)
[2022-01-27] MEDS: ACETAMINOPHEN TAB 325 MG TAB PO PRN (18:45)
[2022-01-27] MEDS: methylPREDNISolone SOD SUCCI 40 MG/ML 1 ML VIAL IV SCH (23:16)
[2022-01-28] MEDS ORDERED: IPRATROPIUM-ALBUTEROL 3 ML NEB ONE (00:01)
--- NOTE | 2022-01-28 00:22 | P.CONS ---
History of Present Illness - Reason for Consult Consult date: 01/27/22 - History of Present Illness Patient is a 76-year-old male with a past medical history significant for COPD chronic hepatitis C peripheral vascular disease hyperlipidemia, presenting to the hospital 3 days ago on 01/24/2022 for evaluation of increasing shortness of breath that apparently has been getting worse for last week before presentation to the hospital patient denies having any chest pain has been complaining of cough which is moderate intensity with occasional sputum production denies any hemoptysis no pleuritic chest pain, patient on presentation to the hospital was afebrile and no fever has been recorded subsequently patient did have vital of 11.4 with a left shift creatinine has been normal liver enzymes are normal influenza RSV and COVID testing was negative patient did have a chest x-ray with right lower lobe infiltrate CT angiogram of the chest on admission did shows moderate emphysematous changes no area of consolidation involving the peripheral right middle lobe patient is currently being treated with Rocephin and Zithromax infectious he was consulted today for further management of antibiotic therapy patient did have a blood cultures so far negative sputum cultures pending Past Medical History Past Medical History: COPD, GERD/Reflux, Hyperlipidemia, Liver Disease, Osteoarthritis (OA), Pneumonia, Respiratory Disorder, Skin Disorder, Vascular Disorder Additional Past Medical History / Comment(s): Severe COPD, chronic hypoxic respiratory failure, home oxygen at 3L/NC ATC, previous history of pneumonia/MRSA, R pleural effusion with thoracentesis, solitary L lung pulmonary nodule, thoracic aortic aneurysm measuring 4.2 cm, chronic hepatitis C viral infection psoriasis, amyloidosis mostly involving skin on neck, occasional low back pain, sinus problems, constipation. History of Any Multi-Drug Resistant Organisms: MRSA Year Discovered:: 08/27/18 MDRO Source:: BRONCH WASH Past Surgical History: Appendectomy, Back Surgery, Joint Replacement Additional Past Surgical History / Comment(s): Lumbar laminectomy/fusion, bilateral total hip replacements, bronchoscopy, colonoscopy. Past Anesthesia/Blood Transfusion Reactions: No Reported Reaction Additional Past Anesthesia/Blood Transfusion Reaction / Comm: Pt received blood with hip surgery Past Psychological History: No Psychological Hx Reported Additional Psychological History / Comment(s): Pt has his adult grandson living with him. He denies anxiety or depression but is on Prozac. Pt is on home oxygen. He drives. Smoking Status: Current every day smoker Past Alcohol Use History: None Reported Additional Past Alcohol Use History / Comment(s): Pt started smoking in 1968 and is a half a ppd smoker. Past Drug Use History: None Reported - Past Family History Father Family Medical History: Myocardial Infarction (PA) Additional Family Medical History / Comment(s): Father of a PA at the age of 70yrs. Mother Family Medical History: No Reported History Additional Family Medical History / Comment(s): Pt states mother was healthy Medications and Allergies Home Medications Medication Instructions Recorded Confirmed Type Ergocalciferol [Vitamin D2 50,000 unit PO Q30D 08/17/18 01/24/22 History (DRISDOL)] traMADol HCL [Ultram] 50 mg PO BID PRN 08/17/18 01/24/22 History FLUoxetine HCL [PROzac] 20 mg PO DAILY #30 cap 10/04/18 01/24/22 Rx Albuterol Sulfate [Ventolin HFA] 2 puff INHALATION RT-Q6H PRN 01/20/20 01/24/22 History Multivitamins, Thera [Multivitamin 1 tab PO DAILY 01/20/20 01/24/22 History (formulary)] OLANZapine [ZyPREXA] 2.5 mg PO TID 01/20/20 01/24/22 History Budesonide-Formot 160-4.5 Mcg 2 puff INHALATION RT-BID #1 puff 04/20/20 01/24/22 Rx [Symbicort 160-4.5 Mcg Inhaler] Furosemide [Lasix] 20 mg PO DAILY #90 tab 04/20/20 01/24/22 Rx Losartan [Cozaar] 50 mg PO DAILY #10 tab 04/20/20 01/24/22 Rx Albuterol Inhaler [Ventolin Hfa 1 puff INHALATION RT-BID PRN 01/24/22 01/24/22 History Inhaler] Budesonide [Pulmicort] 0.5 mg INHALATION RT-BID 01/24/22 01/24/22 History Docusate [Colace] 100 mg PO BID PRN 01/24/22 01/24/22 History Ipratropium-Albuterol Nebulize 3 ml INHALATION RT-QID 01/24/22 01/24/22 History [Duoneb 0.5 mg-3 mg/3 ml Soln] LORazepam [Ativan] 0.5 mg PO HS PRN 01/24/22 01/24/22 History Allergies Allergy/AdvReac Type Severity Reaction Status Date / Time No Known Allergies Allergy Verified 01/24/22 12:36 Physical Exam Vitals: Vital Signs Temp Pulse Pulse Resp BP Pulse Ox 01/27/22 11:52 112 H 01/27/22 11:40 108 H 01/27/22 08:23 114 H 01/27/22 08:12 110 H 96 01/27/22 08:08 109 H 96 01/27/22 07:55 98.1 F 115 H 32 H 171/89 89 L 01/27/22 02:00 98.2 F 112 H 16 125/68 90 L 01/26/22 20:26 104 H 01/26/22 20:16 108 H 01/26/22 20:00 98.3 F 110 H 17 132/79 90 L 01/26/22 15:38 109 H 01/26/22 15:27 110 H Intake and Output 01/26/22 01/27/22 01/27/22 22:59 06:59 14:59 Output Total 550 300 Balance -550 -300 Output: Urine 550 300 Other: Voiding Method Urinal # Voids 2 3 575 # Bowel Movements 1 Results CBC & Chem 7: 01/27/22 14:35 01/27/22 14:35 Labs: Microbiology - Last 24 Hours (Table) 01/24/22 13:00 Gram Stain - Preliminary Sputum Sputum Culture - Preliminary Santa albicans 01/24/22 10:46 Blood Culture - Preliminary Blood No Growth after 72 hours 01/24/22 10:40 Blood Culture - Preliminary Blood No Growth after 48 hours Assessment and Plan Plan: 1patient presented to hospital with increasing shortness of breath and cough about 3 days ago and this patient chest x-ray as well as CT angiogram of the chest did shows right middle lobe pneumonia likely community-acquired and sputum has been negative for any resistant pathogen so far and blood culture negative. 2patient to continue with Rocephin 2 g daily has completed 3-day course of Zithromax. 3continue with the steroids and bronchodilator per pulmonary. We will follow on clinical condition and cultures to further adjust medication if needed Thank you for this consultation will follow this patient along with you Time with Patient: Greater than 30
[2022-01-28] MEDS: IPRATROPIUM-ALBUTEROL 3 ML NEB INHALATION PRN (04:06)
[2022-01-28] MEDS: methylPREDNISolone SOD SUCCI 40 MG/ML 1 ML VIAL IV SCH ×3 (06:38→21:09)
[2022-01-28] MEDS: SYMBICORT 160-4.5 MCG INHALER INHALATION SCH ×2 (08:06→21:27)
[2022-01-28] MEDS: IPRATROPIUM-ALBUTEROL 3 ML NEB INHALATION SCH ×4 (08:06→21:27)
[2022-01-28] MEDS: FUROSEMIDE 20 MG TAB PO SCH (08:42)
[2022-01-28] MEDS: SODIUM CHLORIDE 0.9% 1,000 ML IV SCH ×2 (08:42→17:06)
[2022-01-28] MEDS: OLANZapine 2.5 MG TAB PO SCH ×3 (08:42→21:11)
[2022-01-28] MEDS: MULTIVITAMINS, THERA 1 EACH TAB PO SCH (08:42)
[2022-01-28] MEDS: FLUoxetine HCL 20 MG CAP PO SCH (08:42)
[2022-01-28] MEDS: LOSARTAN 50 MG TAB PO SCH (08:42)
[2022-01-28] MEDS: NICOTINE 14MG/24HR PATCH TRANSDERM SCH (08:42)
[2022-01-28] MEDS: traMADol 50 MG TAB PO PRN ×2 (10:48→20:02)
--- NOTE | 2022-01-28 13:21 | P.PN ---
Subjective Progress Note Date: 01/28/22 Principal diagnosis: Shortness of breath. 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 He presented here to the emergency room yesterday with a 2 to three- day history of increasing shortness of breath cough and congestion. He increase his oxygen from 3 L to 4 L at home without much improvement. He does continue to smoke. Chest x-ray reveals evidence of a new right lower lobe infiltrate extending to the costophrenic angle suspicious for pneumonia. Diffuse COPD. CT angiogram revealed no evidence of acute pulmonary embolism. There is moderate to advanced emphysematous changes with new areas of consolidation involving the periphery of the right middle lobe and inferior right lower lobe. Ascending aortic aneurysm measuring 4.9 cm. White count 11.4. Hemoglobin 11.5. Lymphocytes 0.6. D-dimer 1.14. Sodium 131. Potassium 4.5. Bicarb 41. BUN 27. Creatinine 1.03. Glucose 121. Troponin negative 1. ProBNP 285. Influenza screen negative. RSV screen negative. COVID-19 screen negative. He is seen today in consultation on the regular medical floor. Currently resting comfortably in bed. Awake and alert in no acute distress. He does have a loose nonproductive cough. No fever or chills. No hemoptysis. The patient is seen today 01/26/2022 in follow-up on the regular medical floor. He is currently sitting up in bed. Awake and alert in no acute distress. Feeling better today compared to yesterday. Still on 8 L high flow nasal cannula. O2 saturations 95-96%. He is afebrile. Hemodynamically stable. Blood cultures reveal no growth. Sputum culture reveals no growth. He is continued on Symbicort, DuoNeb inhalations, IV Solu-Medrol. NicoDerm patch in place. Antibiotics in the form of Zosyn and azithromycin. The patient is seen today 01/27/2022 in follow-up on the regular medical floor. He is currently sitting up at the bedside. Awake and alert in no acute distress. He did have some dyspnea earlier with exertion. He is still re quiring 8 L of high flow nasal cannula to maintain O2 saturations in the low 90s. He has normal saline at 60 ML's per hour. Blood cultures reveal no growth. Sputum culture with Santa. He remains on IV Solu-Medrol, DuoNeb inhalations, Symbicort. NicoDerm patch in place. Antibiotics in form of ceftriaxone. Progress note dated 01/28/2022. The patient is again seen today in room 467. The patient is currently on 6 L of oxygen. No IV fluids. When I ask him how he feels, he states that he feels much better. No new laboratory data today. The laboratory data from January 27 are reviewed. The patient continues on Symbicort, Rocephin, updrafts, and Solu-Medrol. Objective - Vital Signs Vital signs: Vital Signs Temp 98.1 F 01/28/22 08:00 Pulse 114 H 01/28/22 12:49 Resp 16 01/28/22 08:00 BP 118/62 01/28/22 08:00 Pulse Ox 92 L 01/28/22 08:08 FiO2 Intake & Output 01/27/22 01/28/22 01/28/22 18:59 06:59 18:59 Intake Total 600 Output Total 300 600 Balance -300 600 -600 Intake: Intake, IV Titration 600 Amount Sodium Chloride 0.9% 1, 600 000 ml @ 100 mls/hr IV . Q10H [facility] Rx#:[id number] Output: Urine 300 600 Other: Voiding Method Urinal Urinal # Voids 575 3 - Exam No acute distress, oriented 3. No respiratory distress or use of accessory muscles. The patient is currently on 6 L. HEENT examination is grossly unremarkable. Neck supple. Full range of motion. No adenopathy thyromegaly or neck vein distention. Cardiovascular examination reveals regular rhythm rate. S1-S2 normal. No S3 or S4. No discernible murmur noted. Heart rate 94 bpm. Lungs reveal scattered bilateral rhonchi. No wheezes. No crackles. Saturations are 92% on 6 L. Abdomen soft bowel sounds are heard. No masses or tenderness. Extremities are intact. No cyanosis clubbing or edema. Skin is without rash or lesion. Neurologic examination is brief but nonfocal. - Labs CBC & Chem 7: 01/27/22 14:35 01/27/22 14:35 Labs: Abnormal Lab Results - Last 24 Hours (Table) 01/27/22 01/27/22 Range/Units 14:35 14:35 RBC 3.63 L (4.30-5.90) m/uL Hgb 11.4 L (13.0-17.5) gm/dL Hct 35.2 L (39.0-53.0) % Lymphocytes # 0.4 L (1.0-4.8) k/uL Chloride 93 L (98-107) mmol/L Carbon Dioxide 39 H (22-30) mmol/L BUN 25 H (9-20) mg/dL Glucose 195 H (74-99) mg/dL Microbiology - Last 24 Hours (Table) 01/24/22 10:46 Blood Culture - Preliminary Blood No Growth after 96 hours 01/24/22 13:00 Gram Stain - Final Sputum Sputum Culture - Final Santa albicans 01/24/22 10:40 Blood Culture - Preliminary Blood No Growth after 72 hours Assessment and Plan Assessment: Acute hypoxemic respiratory failure secondary to an acute community-acquired pneumonia. Acute exacerbation of severe oxygen dependent chronic obstructive pulmonary disease. Chronic and ongoing tobacco dependence of greater than 50 years. Hypertension. Hyperlipidemia. History of hepatitis C. History of thoracic aortic aneurysm currently measuring 4.9 cm. History of amyloidosis. Plan: Plan dated 01/28/2022. The patient is seen today in room 467. The patient continues on oxygen, at 6 L. The patient is feeling better. He is less short of breath. He continues on antibiotics and breathing treatments. He also continues on steroids. The pat ient is a DO NOT RESUSCITATE patient. We will continue to follow and make recommendations along the way. Prognosis is certainly guarded. Time with Patient: Less than 30
--- NOTE | 2022-01-28 16:50 | P.PN ---
Subjective Progress Note Date: 01/28/22 Principal diagnosis: Pneumonia Patient is a 76-year-old male with a past medical history significant for COPD chronic hepatitis C peripheral vascular disease hyperlipidemia, presenting to the hospital 3 days ago on 01/24/2022 for evaluation of increasing shortness of breath that apparently has been getting worse for last week before presentation to the hospital , patient CT of the chest did shows evidence of right middle lobe pneumonia On today's evaluation that is 01/28/2022, the patient is afebrile, the patient FiO2 is down to 6 L nasal cannula, the patient denies having any chest pain continued to have a cough with occasional sputum, no nausea no vomiting no a bdominal pain no diarrhea Objective - Vital Signs Vital signs: Vital Signs Temp 98 F 01/28/22 14:00 Pulse 103 H 01/28/22 16:42 Resp 18 01/28/22 14:00 BP 184/86 01/28/22 14:00 Pulse Ox 92 L 01/28/22 14:00 FiO2 Intake & Output 01/27/22 01/28/22 01/28/22 18:59 06:59 18:59 Intake Total 600 Output Total 300 600 Balance -300 600 -600 Intake: Intake, IV Titration 600 Amount Sodium Chloride 0.9% 1, 600 000 ml @ 100 mls/hr IV . Q10H [facility] Rx#:[id number] Output: Urine 300 600 Other: Voiding Method Urinal Urinal # Voids 575 3 - Exam GENERAL DESCRIPTION: An elderly male lying in bed in no distress RESPIRATORY SYSTEM: Unlabored breathing , decreased breath sounds at bases HEART: S1 S2 regular rate and rhythm , ABDOMEN: Soft , no tenderness EXTREMITIES: No edema feet - Labs CBC & Chem 7: 01/27/22 14:35 01/27/22 14:35 Labs: Microbiology - Last 24 Hours (Table) 01/24/22 10:40 Blood Culture - Preliminary Blood No Growth after 96 hours 01/24/22 10:46 Blood Culture - Preliminary Blood No Growth after 96 hours 01/24/22 13:00 Gram Stain - Final Sputum Sputum Culture - Final Santa albicans Assessment and Plan (1) Pneumonia Current Visit: Yes Status: Acute Code(s): J18.9 - PNEUMONIA, UNSPECIFIED ORGANISM SNOMED Code(s): 281290359 Plan: 1patient presented to hospital with increasing shortness of breath and cough about 3 days ago and this patient chest x-ray as well as CT angiogram of the chest did shows right middle lobe pneumonia likely community-acquired , sputum is showing Santa more likely colonizer blood culture has been negative 2patient seemed to have shown some clinical improvement and continue with Ro cephin 2 g daily 3continue with the steroids and bronchodilator per pulmonary. Time with Patient: Less than 30
--- NOTE | 2022-01-28 20:40 | PN ---
PROGRESS NOTE DATE OF SERVICE: 01/28/2022 CHIEF COMPLAINT: General debility, weakness, pneumonitis, and COPD. HISTORY OF PRESENT ILLNESS: This gentleman is doing just a little bit better. He is still extremely weak. He thinks he may either have to go to rehab or detention. PHYSICAL EXAMINATION: GENERAL: Hydration has slightly improved. CHEST: Demonstrates fairly clear breath sounds. CARDIAC: Normal. ABDOMEN: Soft, nontender. IMPRESSION: 1. Exacerbated chronic obstructive pulmonary disease. 2. Generalized weakness and debility. 3. Frequent falling. 4. Pneumonitis. PLAN: Continue with current program and work on discharge plan. MMODL / IJN: [id number] /
--- NOTE | 2022-01-28 20:58 | PN ---
PROGRESS NOTE DATE OF SERVICE: 01/27/2022 CHIEF COMPLAINT: Frequent falling, general debility and weakness. HISTORY OF PRESENT ILLNESS: This gentleman is still very weak. He is not complaining of chest pain or shortness of breath. PHYSICAL EXAMINATION: CHEST: Clear. CARDIAC: Normal. ABDOMEN: Soft and nontender. IMPRESSION: 1. Exacerbation of chronic obstructive pulmonary disease. 2. General debility and weakness. 3. Frequent falling. 4. Pneumonitis. PLAN: Continue with updrafts, IV fluids, and antibiotics. MMODL / IJN: [id number] /
[2022-01-29] MEDS: SODIUM CHLORIDE 0.9% 1,000 ML IV SCH ×2 (06:00→15:31)
[2022-01-29] MEDS: methylPREDNISolone SOD SUCCI 40 MG/ML 1 ML VIAL IV SCH ×3 (06:01→21:39)
[2022-01-29] MEDS: SYMBICORT 160-4.5 MCG INHALER INHALATION SCH ×2 (07:33→19:28)
[2022-01-29] MEDS: IPRATROPIUM-ALBUTEROL 3 ML NEB INHALATION SCH ×4 (07:33→19:28)
[2022-01-29] MEDS: LOSARTAN 50 MG TAB PO SCH (09:45)
[2022-01-29] MEDS: NICOTINE 14MG/24HR PATCH TRANSDERM SCH (09:45)
[2022-01-29] MEDS: OLANZapine 2.5 MG TAB PO SCH ×3 (09:45→21:39)
[2022-01-29] MEDS: FUROSEMIDE 20 MG TAB PO SCH (09:45)
[2022-01-29] MEDS: MULTIVITAMINS, THERA 1 EACH TAB PO SCH (09:45)
[2022-01-29] MEDS: FLUoxetine HCL 20 MG CAP PO SCH (09:45)
[2022-01-29] MEDS: traMADol 50 MG TAB PO PRN ×2 (09:48→21:38)
--- NOTE | 2022-01-29 18:54 | P.PN ---
Subjective Progress Note Date: 01/29/222019 and seeing the patient for a follow-up. The patient is advanced COPD in addition to various comorbidities was restless for worsening shortness. Clinically stable. There is evidence of a right-sided pneumonia based. He denies having any new complaints. His clinically improving and is looking for rehabilitation. The patient meanwhile remains on Rocephin. The patient remains on Symbicort. The patient remains on DuoNeb about treatments [id number] and IV Solu-Medrol 20 mg every 8 hours. The chest x-ray indicating severe COPD and severe degenerative showed no evidence of any pulmonary embolism. There was areas of consolidation involving the middle lobe and the right lower lobe Objective - Vital Signs Vital signs: Vital Signs Temp 97.9 F 01/29/22 07:29 Pulse 100 01/29/22 11:00 Resp 18 01/29/22 09:45 BP 165/83 01/29/22 07:29 Pulse Ox 95 01/29/22 07:29 FiO2 Intake & Output 01/28/22 01/29/22 01/29/22 18:59 06:59 18:59 Intake Total 600 Output Total 600 Balance -600 600 Intake: Intake, IV Titration 600 Amount Sodium Chloride 0.9% 1, 600 000 ml @ 100 mls/hr IV . Q10H [facility] Rx#:[id number] Output: Urine 600 Other: Voiding Method Urinal Bedside Commode Urinal # Voids 1 # Bowel Movements 1 - Exam No acute distress, oriented 3. No respiratory distress or use of accessory muscles. The patient is currently on 8L. HEENT examination is grossly unremarkable. Neck supple. Full range of motion. No adenopathy thyromegaly or neck vein distention. Cardiovascular examination reveals regular rhythm rate. S1-S2 normal. No S3 or S4. No discernible murmur noted. Lungs reveal scattered bilateral rhonchi. No wheezes. No crackles. Abdomen soft bowel sounds are heard. No masses or tenderness. Extremities are intact. No cyanosis clubbing or edema. Skin is without rash or lesion. Neurologic examination is brief but nonfocal. - Labs CBC & Chem 7: 01/27/22 14:35 01/27/22 14:35 Labs: Microbiology - Last 24 Hours (Table) 01/24/22 10:46 Blood Culture - Preliminary Blood No Growth after 120 hours 01/24/22 10:40 Blood Culture - Preliminary Blood No Growth after 96 hours Assessment and Plan Plan: Acute hypoxemic respiratory failure secondary to an acute community-acquired pneumonia involving the right middle lobe and the right lower lobe Acute exacerbation of severe oxygen dependent chronic obstructive pulmonary disease. Chronic and ongoing tobacco dependence of greater than 50 years. Chronic hypoxic respiratory failure Hypertension. Hyperlipidemia. History of hepatitis C. History of thoracic aortic aneurysm currently measuring 4.9 cm. History of amyloidosis. Plan: Continue same treatment Wean FiO2 Continue antibiotics Clinically stable Long-term prognosis poor DNR/DNI CODE STATUS Continue rehabilitation
[2022-01-30] MEDS: SODIUM CHLORIDE 0.9% 1,000 ML IV SCH ×2 (04:44→09:55)
[2022-01-30] MEDS: methylPREDNISolone SOD SUCCI 40 MG/ML 1 ML VIAL IV SCH ×2 (06:56→16:29)
--- NOTE | 2022-01-30 07:01 | PN ---
PROGRESS NOTE DATE OF SERVICE: 01/29/2022 CHIEF COMPLAINT: Pneumonitis and COPD with general debility and weakness. HISTORY OF PRESENT ILLNESS: This gentleman still feels very weak. He is still short of breath. He is eating, his appetite is poor. He denies any chest pain, chills, fever, abdominal pain, etc. PHYSICAL EXAMINATION: LUNGS: Breath sounds are diminished with scattered rales. CARDIAC: Normal. ABDOMEN: Soft and nontender. IMPRESSION: 1. Pneumonitis. 2. Chronic obstructive pulmonary disease. 3. General debility and weakness. PLAN: Continue with current program with updrafts, IV fluids, and antibiotics. PT and OT are working with the patient. MMODL / IJN: [id number] /
[2022-01-30] MEDS: IPRATROPIUM-ALBUTEROL 3 ML NEB INHALATION SCH ×4 (08:15→21:20)
[2022-01-30] MEDS: SYMBICORT 160-4.5 MCG INHALER INHALATION SCH ×2 (08:15→21:20)
[2022-01-30] MEDS: FLUoxetine HCL 20 MG CAP PO SCH (09:52)
[2022-01-30] MEDS: MULTIVITAMINS, THERA 1 EACH TAB PO SCH (09:52)
[2022-01-30] MEDS: FUROSEMIDE 20 MG TAB PO SCH (09:52)
[2022-01-30] MEDS: OLANZapine 2.5 MG TAB PO SCH ×3 (09:52→22:47)
[2022-01-30] MEDS: LOSARTAN 50 MG TAB PO SCH (09:52)
[2022-01-30] MEDS: NICOTINE 14MG/24HR PATCH TRANSDERM SCH (09:53)
[2022-01-30] MEDS: traMADol 50 MG TAB PO PRN ×2 (09:58→20:20)
[2022-01-30 11:30] VITALS: BMI 20.3
--- NOTE | 2022-01-30 14:28 | P.PN ---
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 He presented here to the emergency room yesterday with a 2 to three-day history of increasing shortness of breath cough and congestion. He increase his oxygen from 3 L to 4 L at home without much improvement. He does continue to smoke. Chest x-ray reveals evidence of a new right lower lobe infiltrate extending to the costophrenic angle suspicious for pneumonia. Diffuse COPD. CT angiogram revealed no evidence of acute pulmonary embolism. There is moderate to advanced emphysematous changes with new areas of consolidation involving the periphery of the right middle lobe and inferior right lower lobe. Ascending aortic aneurysm measuring 4.9 cm. White count 11.4. Hemoglobin 11.5. Lymphocytes 0.6. D-dimer 1.14. Sodium 131. Potassium 4.5. Bicarb 41. BUN 27. Creatinine 1.03. Glucose 121. Troponin negative 1. ProBNP 285. Influenza screen negative. RSV screen negative. COVID-19 screen negative. He is seen today in consultation on the regular medical floor. Currently resting comfortably in bed. Awake and alert in no acute distress. He does have a loose nonproductive cough. No fever or chills. No hemoptysis. The patient is seen today 01/26/2022 in follow-up on the regular medical floor. He is currently sitting up in bed. Awake and alert in no acute distress. Feeling better today compared to yesterday. Still on 8 L high flow nasal cannula. O2 saturations 95-96%. He is afebrile. Hemodynamically stable. Blood cultures reveal no growth. Sputum culture reveals no growth. He is continued on Symbicort, DuoNeb inhalations, IV Solu-Medrol. NicoDerm patch in place. Antibiotics in the form of Zosyn and azithromycin. The patient is seen today 01/27/2022 in follow-up on the regular medical floor. He is currently sitting up at the bedside. Awake and alert in no acute distress. He did have some dyspnea earlier with exertion. He is still requiring 8 L of high flow nasal cannula to maintain O2 saturations in the low 90s. He has normal saline at 60 ML's per hour. Blood cultures reveal no growth. Sputum culture with Santa. He remains on IV Solu-Medrol, DuoNeb inhalations, Symbicort. NicoDerm patch in place. Antibiotics in form of ceftriaxone. The patient is seen today 01/30/2022 in follow-up on the regular medical floor. He sitting up in a chair at the bedside. Awake and alert in no acute distress. He is maintaining O2 saturations in the 90s on 6 L high flow nasal cannula. Sputum culture reveals no bacteria. Blood cultures revealed no growth. He is continued on Symbicort, DuoNeb inhalations, IV Solu-Medrol. Antibiotics in the form of ceftriaxone. NicoDerm patch in place. Objective - Vital Signs Vital signs: Vital Signs Temp 97.9 F 01/30/22 08:00 Pulse 115 H 01/30/22 12:02 Resp 18 01/30/22 08:00 BP 171/93 01/30/22 08:00 Pulse Ox 94 L 01/30/22 11:52 FiO2 Intake & Output 01/29/22 01/30/22 01/30/22 18:59 06:59 18:59 Output Total 300 Balance -300 Weight 62.596 kg Output: Urine 300 Other: Voiding Method Bedside Commode Urinal Urinal # Voids 2 2 - Exam GENERAL EXAM: Alert, 76-year-old male patient, remains on 6 L nasal cannula, comfortable in no apparent distress. HEAD: Normocephalic. EYES: Normal reaction of pupils, equal size. NOSE: Clear with pink turbinates. THROAT: No erythema or exudates. NECK: No masses, no JVD. CHEST: No chest wall deformity. LUNGS: Equal air entry with few scattered rhonchi, end expiratory wheeze, diminished. CVS: S1 and S2 normal with no audible murmur, regular rhythm. ABDOMEN: No hepatosplenomegaly, normal bowel sounds, no guarding or rigidity. SPINE: No scoliosis or deformity SKIN: No rashes CENTRAL NERVOUS SYSTEM: No focal deficits, tone is normal in all 4 extremities. EXTREMITIES: There is no peripheral edema. No clubbing, no cyanosis. Peripheral pulses are intact. - Labs CBC & Chem 7: 01/27/22 14:35 01/27/22 14:35 Labs: Microbiology - Last 24 Hours (Table) 01/24/22 10:46 Blood Culture - Final Blood No Growth after 144 hours 01/24/22 10:40 Blood Culture - Preliminary Blood No Growth after 120 hours Assessment and Plan Assessment: Acute hypoxemic respiratory failure secondary to an acute community-acquired pneumonia here currently on ceftriaxone and azithromycin. 6 L high flow nasal cannula. 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 Number of minutes spent on the visit: 10. Joint evaluation that was done along with the nurse practitioner. Again the above-mentioned plan. Evaluation was done in more than 20 minutes . 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 Reviewed the CAT scan the chest and there is some inflammatory changes in the right midlung. He remains oxygen dependent. Performance of functional status due to advanced COPD..
[2022-01-31] MEDS: SODIUM CHLORIDE 0.9% 1,000 ML IV SCH ×4 (03:30→21:46)
--- NOTE | 2022-01-31 07:31 | PN ---
PROGRESS NOTE CHIEF COMPLAINT: COPD, pneumonitis, and weakness. HISTORY OF PRESENT ILLNESS: This gentleman is not progressing. He remains quite weak. He is concerned about going home. PHYSICAL EXAMINATION: VITAL SIGNS: Normal. GENERAL: He is very asthenic and still dehydrated. HEAD, EARS, EYES, NOSE, MOUTH: Normal. NECK: Neck veins are not distended. LUNGS: Breath sounds are diminished throughout with only occasional rales. CARDIAC: Demonstrates sinus rhythm and no murmurs. ABDOMEN: Soft. IMPRESSION: 1. Pneumonitis. 2. Respiratory failure. 3. Exacerbation of chronic obstructive pulmonary disease. PLAN: Continue with current management until he has been strong enough and breathing well enough that he could be discharged safely home. MMODL / IJN: [id number] /
[2022-01-31] MEDS: SYMBICORT 160-4.5 MCG INHALER INHALATION SCH ×2 (09:25→20:16)
[2022-01-31] MEDS: IPRATROPIUM-ALBUTEROL 3 ML NEB INHALATION SCH ×4 (09:25→20:16)
[2022-01-31] MEDS: FUROSEMIDE 20 MG TAB PO SCH (09:54)
[2022-01-31] MEDS: NICOTINE 14MG/24HR PATCH TRANSDERM SCH (09:54)
[2022-01-31] MEDS: OLANZapine 2.5 MG TAB PO SCH ×3 (09:54→21:46)
[2022-01-31] MEDS: FLUoxetine HCL 20 MG CAP PO SCH (09:54)
[2022-01-31] MEDS: predniSONE 10 MG TAB PO SCH (09:55)
[2022-01-31] MEDS: MULTIVITAMINS, THERA 1 EACH TAB PO SCH (09:55)
[2022-01-31] MEDS: traMADol 50 MG TAB PO PRN ×2 (09:55→21:45)
[2022-01-31] MEDS: LOSARTAN 50 MG TAB PO SCH (09:55)
--- NOTE | 2022-01-31 15:38 | P.PN ---
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 He presented here to the emergency room yesterday with a 2 to three-day history of increasing shortness of breath cough and congestion. He increase his oxygen from 3 L to 4 L at home without much improvement. He does continue to smoke. Chest x-ray reveals evidence of a new right lower lobe infiltrate extending to the costophrenic angle suspicious for pneumonia. Diffuse COPD. CT angiogram revealed no evidence of acute pulmonary embolism. There is moderate to advanced emphysematous changes with new areas of consolidation involving the periphery of the right middle lobe and inferior right lower lobe. Ascending aortic aneurysm measuring 4.9 cm. White count 11.4. Hemoglobin 11.5. Lymphocytes 0.6. D-dimer 1.14. Sodium 131. Potassium 4.5. Bicarb 41. BUN 27. Creatinine 1.03. Glucose 121. Troponin negative 1. ProBNP 285. Influenza screen negative. RSV screen negative. COVID-19 screen negative. He is seen today in consultation on the regular medical floor. Currently resting comfortably in bed. Awake and alert in no acute distress. He does have a loose nonproductive cough. No fever or chills. No hemoptysis. The patient is seen today 01/26/2022 in follow-up on the regular medical floor. He is currently sitting up in bed. Awake and alert in no acute distress. Feeling better today compared to yesterday. Still on 8 L high flow nasal cannula. O2 saturations 95-96%. He is afebrile. Hemodynamically stable. Blood cultures reveal no growth. Sputum culture reveals no growth. He is continued on Symbicort, DuoNeb inhalations, IV Solu-Medrol. NicoDerm patch in place. Antibiotics in the form of Zosyn and azithromycin. The patient is seen today 01/27/2022 in follow-up on the regular medical floor. He is currently sitting up at the bedside. Awake and alert in no acute distress. He did have some dyspnea earlier with exertion. He is still requiring 8 L of high flow nasal cannula to maintain O2 saturations in the low 90s. He has normal saline at 60 ML's per hour. Blood cultures reveal no growth. Sputum culture with Santa. He remains on IV Solu-Medrol, DuoNeb inhalations, Symbicort. NicoDerm patch in place. Antibiotics in form of ceftriaxone. The patient is seen today 01/30/2022 in follow-up on the regular medical floor. He sitting up in a chair at the bedside. Awake and alert in no acute distress. He is maintaining O2 saturations in the 90s on 6 L high flow nasal cannula. Sputum culture reveals no bacteria. Blood cultures revealed no growth. He is continued on Symbicort, DuoNeb inhalations, IV Solu-Medrol. Antibiotics in the form of ceftriaxone. NicoDerm patch in place. The patient is seen today 01/31/2022 in follow-up on the regular medical floor. He is currently resting comfortably in bed. Awake and alert in no acute distress. Tolerating a diet. If he is maintaining O2 saturation in the low 90s on 6 L high flow nasal cannula. He's been afebrile. Blood cultures revealed no growth. No new labs today. He is continued on antibiotics in the form of ceftriaxone. NicoDerm patch in place. Continued on Symbicort and DuoNeb inhalations. Objective - Vital Signs Vital signs: Vital Signs Temp 98.4 F 01/31/22 14:00 Pulse 116 H 01/31/22 14:00 Resp 17 01/31/22 14:00 BP 152/82 01/31/22 14:00 Pulse Ox 91 L 01/31/22 14:00 FiO2 Intake & Output 01/30/22 01/31/22 01/31/22 18:59 06:59 18:59 Intake Total 850 Output Total 650 1500 Balance -650 -1500 850 Weight 62.596 kg Intake: Intake, IV Titration 850 Amount Sodium Chloride 0.9% 1, 800 000 ml @ 100 mls/hr IV . Q10H [facility] Rx#:[id number] cefTRIAXone 2 gm In 50 Sodium Chloride 0.9% 50 ml @ 100 mls/hr IVPB Q24HR [facility] Rx#:[id number] Output: Urine 650 1500 Other: Voiding Method Urinal Urinal - Exam GENERAL EXAM: Alert, frail 76-year-old male resting comfortably in bed, remains on 6 L nasal cannula, comfortable in no apparent distress. HEAD: Normocephalic. EYES: Normal reaction of pupils, equal size. NOSE: Clear with pink turbinates. THROAT: No erythema or exudates. NECK: No masses, no JVD. CHEST: No chest wall deformity. LUNGS: Equal air entry with few scattered rhonchi, end expiratory wheeze, diminished. CVS: S1 and S2 normal with no audible murmur, regular rhythm. ABDOMEN: No hepatosplenomegaly, normal bowel sounds, no guarding or rigidity. SPINE: No scoliosis or deformity SKIN: No rashes CENTRAL NERVOUS SYSTEM: No focal deficits, tone is normal in all 4 extremities. EXTREMITIES: There is no peripheral edema. No clubbing, no cyanosis. Peripheral pulses are intact. - Labs CBC & Chem 7: 01/27/22 14:35 01/27/22 14:35 Labs: Microbiology - Last 24 Hours (Table) 01/24/22 10:40 Blood Culture - Final Blood No Growth after 144 hours 01/24/22 10:46 Blood Culture - Final Blood No Growth after 144 hours Assessment and Plan Assessment: Acute hypoxemic respiratory failure secondary to an acute community-acquired pneumonia here currently on ceftriaxone and azithromycin. 6 L high flow nasal cannula. 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 Number of minutes spent on the visit: 10. This is a joint evaluation that was done along with BUSINESS ADMINISTRATION INSTRUCTOR. The patient was seen an d evaluated personally. I reviewed and discussed the the above-mentioned plan with the patient and the BUSINESS ADMINISTRATION INSTRUCTOR. This evaluation was done in more than 20 minutes. I agree to the above-mentioned evaluation, information and planning.
--- NOTE | 2022-02-01 02:22 | PN ---
PROGRESS NOTE CHIEF COMPLAINT: Pneumonitis, COPD, and respiratory failure. HISTORY OF PRESENT ILLNESS: This gentleman is not doing well. He is awake and alert, but he remains very weak and debilitated. He probably have to go to a rehab facility after his hospitalization. PHYSICAL EXAMINATION: GENERAL: He is awake and alert. He remains dehydrated and nutrition is poor. CARDIAC: Normal. LUNGS. Chest is clear. ABDOMEN: Soft. IMPRESSION: 1. Bronchial pneumonia. 2. Advanced chronic obstructive pulmonary disease. 3. Malnutrition. 4. Dehydration. 5. General debility and weakness. PLAN: Continue with current management, but the residential is being sought at this time. MMODL / IJN: [id number] /
[2022-02-01] MEDS: predniSONE 10 MG TAB PO SCH (07:53)
[2022-02-01] MEDS: traMADol 50 MG TAB PO PRN ×2 (07:53→20:42)
[2022-02-01] MEDS: LOSARTAN 50 MG TAB PO SCH (07:53)
[2022-02-01] MEDS: MULTIVITAMINS, THERA 1 EACH TAB PO SCH (07:53)
[2022-02-01] MEDS: FLUoxetine HCL 20 MG CAP PO SCH (07:53)
[2022-02-01] MEDS: NICOTINE 14MG/24HR PATCH TRANSDERM SCH (07:53)
[2022-02-01] MEDS: FUROSEMIDE 20 MG TAB PO SCH (07:54)
[2022-02-01] MEDS: OLANZapine 2.5 MG TAB PO SCH ×3 (07:55→20:43)
[2022-02-01] MEDS: SYMBICORT 160-4.5 MCG INHALER INHALATION SCH ×2 (08:51→20:47)
[2022-02-01] MEDS: IPRATROPIUM-ALBUTEROL 3 ML NEB INHALATION SCH ×4 (08:51→20:47)
--- NOTE | 2022-02-01 10:43 | P.PN ---
Subjective Progress Note Date: 01/29/22 Principal diagnosis: Pneumonia Patient is a 76-year-old male with a past medical history significant for COPD chronic hepatitis C peripheral vascular disease hyperlipidemia, presenting to the hospital 3 days ago on 01/24/2022 for evaluation of increasing shortness of breath that apparently has been getting worse for last week before presentation to the hospital , patient CT of the chest did shows evidence of right middle lobe pneumonia On today's evaluation that is 01/29/2022, the patient remains to be afebrile, the patient is previous study comfortably and is currently on 6 L nasal cannula, the patient denies having any chest pain, the patient continued to have a cough but not bringing up any sputum no nausea no vomiting no abdominal pain or diarrhea Objective - Vital Signs Vital signs: Vital Signs Temp 97.9 F 01/29/22 07:29 Pulse 100 01/29/22 11:00 Resp 18 01/29/22 09:45 BP 165/83 01/29/22 07:29 Pulse Ox 95 01/29/22 07:29 FiO2 Intake & Output 01/28/22 01/29/22 01/29/22 18:59 06:59 18:59 Intake Total 600 Output Total 600 Balance -600 600 Intake: Intake, IV Titration 600 Amount Sodium Chloride 0.9% 1, 600 000 ml @ 100 mls/hr IV . Q10H [facility] Rx#:[id number] Output: Urine 600 Other: Voiding Method Urinal Bedside Commode Urinal # Voids 1 # Bowel Movements 1 - Exam GENERAL DESCRIPTION: An elderly male lying in bed in no distress RESPIRATORY SYSTEM: Unlabored breathing , decreased breath sounds at bases HEART: S1 S2 regular rate and rhythm , ABDOMEN: Soft , no tenderness EXTREMITIES: No edema feet - Labs CBC & Chem 7: 01/27/22 14:35 01/27/22 14:35 Labs: Microbiology - Last 24 Hours (Table) 01/24/22 10:46 Blood Culture - Preliminary Blood No Growth after 120 hours 01/24/22 10:40 Blood Culture - Preliminary Blood No Growth after 96 hours Assessment and Plan (1) Pneumonia Current Visit: Yes Status: Acute Code(s): J18.9 - PNEUMONIA, UNSPECIFIED ORGANISM SNOMED Code(s): 938458005 Plan: 1patient presented to hospital with increasing shortness of breath and cough about 3 days ago and this patient chest x-ray as well as CT angiogram of the chest did shows right middle lobe pneumonia likely community-acquired , sputum is showing Santa more likely colonizer blood culture has been negative 2patient seemed to have shown some clinical improvement , sputum has been finalized with moderate normal luis along with santa patient to continue with Rocephin and monitor clinical course closely Time with Patient: Less than 30
--- NOTE | 2022-02-01 10:44 | P.PN ---
Subjective Progress Note Date: 01/30/22 Principal diagnosis: Pneumonia Patient is a 76-year-old male with a past medical history significant for COPD chronic hepatitis C peripheral vascular disease hyperlipidemia, presenting to the hospital 3 days ago on 01/24/2022 for evaluation of increasing shortness of breath that apparently has been getting worse for last week before presentation to the hospital , patient CT of the chest did shows evidence of right middle lobe pneumonia On today's evaluation that is 01/30/2022, the patient continues to be afebrile, the patient is breathing comfortably on 6 L nasal cannula, the patient denies chest pain, the patient cough has decreased intensity mostly dry in nature and no nausea no vomiting no abdominal pain no diarrhea Objective - Vital Signs Vital signs: Vital Signs Temp 97.9 F 01/30/22 08:00 Pulse 115 H 01/30/22 12:02 Resp 18 01/30/22 08:00 BP 171/93 01/30/22 08:00 Pulse Ox 94 L 01/30/22 11:52 FiO2 Intake & Output 01/29/22 01/30/22 01/30/22 18:59 06:59 18:59 Output Total 300 Balance -300 Weight 62.596 kg Output: Urine 300 Other: Voiding Method Bedside Commode Urinal Urinal # Voids 2 2 - Exam GENERAL DESCRIPTION: An elderly male lying in bed in no distress RESPIRATORY SYSTEM: Unlabored breathing , decreased breath sounds at bases HEART: S1 S2 regular rate and rhythm , ABDOMEN: Soft , no tenderness EXTREMITIES: No edema feet - Labs CBC & Chem 7: 01/27/22 14:35 01/27/22 14:35 Labs: Microbiology - Last 24 Hours (Table) 01/24/22 10:46 Blood Culture - Final Blood No Growth after 144 hours 01/24/22 10:40 Blood Culture - Preliminary Blood No Growth after 120 hours Assessment and Plan (1) Pneumonia Current Visit: Yes Status: Acute Code(s): J18.9 - PNEUMONIA, UNSPECIFIED ORGANISM SNOMED Code(s): 658977521 Plan: 1patient presented to hospital with increasing shortness of breath and cough about 3 days ago and this patient chest x-ray as well as CT angiogram of the chest did shows right middle lobe pneumonia likely community-acquired , sputum is showing Santa more likely colonizer blood culture has been negative 2patient sputum has been finalized with moderate normal luis along with santa, santa is more likely colonizer 3patient to continue with the Rocephin and monitor his clinical course closely Time with Patient: Less than 30
--- NOTE | 2022-02-01 10:45 | P.PN ---
Subjective Progress Note Date: 01/31/22 Principal diagnosis: Pneumonia Patient is a 76-year-old male with a past medical history significant for COPD chronic hepatitis C peripheral vascular disease hyperlipidemia, presenting to the hospital 3 days ago on 01/24/2022 for evaluation of increasing shortness of breath that apparently has been getting worse for last week before presentation to the hospital , patient CT of the chest did shows evidence of right middle lobe pneumonia On today's evaluation that is 01/31/2022, the patient denies any fever or chills, the patient denies any chest pain or shortness of breath occasional cough patient is currently on a 6 L nasal cannula denies any nausea or vomiting no abdominal pain no diarrhea Objective - Vital Signs Vital signs: Vital Signs Temp 98.4 F 01/31/22 14:00 Pulse 116 H 01/31/22 14:00 Resp 17 01/31/22 14:00 BP 152/82 01/31/22 14:00 Pulse Ox 91 L 01/31/22 14:00 FiO2 Intake & Output 01/30/22 01/31/22 01/31/22 18:59 06:59 18:59 Output Total 650 1500 Balance -650 -1500 Weight 62.596 kg Output: Urine 650 1500 Other: Voiding Method Urinal Urinal - Exam GENERAL DESCRIPTION: An elderly male lying in bed in no distress RESPIRATORY SYSTEM: Unlabored breathing , decreased breath sounds at bases HEART: S1 S2 regular rate and rhythm , ABDOMEN: Soft , no tenderness EXTREMITIES: No edema feet - Labs CBC & Chem 7: 01/27/22 14:35 01/27/22 14:35 Labs: Microbiology - Last 24 Hours (Table) 01/24/22 10:40 Blood Culture - Final Blood No Growth after 144 hours 01/24/22 10:46 Blood Culture - Final Blood No Growth after 144 hours Assessment and Plan (1) Pneumonia Current Visit: Yes Status: Acute Code(s): J18.9 - PNEUMONIA, UNSPECIFIED ORGANISM SNOMED Code(s): 047759858 Plan: 1patient presented to hospital with increasing shortness of breath and cough about 3 days ago and this patient chest x-ray as well as CT angiogram of the [facility] did shows right middle lobe pneumonia likely community-acquired , sputum is showing Santa more likely colonizer blood culture has been negative 2patient sputum has been finalized with moderate normal luis along with santa, santa is more likely colonizer 3patient has shown some clinical improvement and will continue with the Rocephin and monitor his clinical course closely Time with Patient: Less than 30
[2022-02-01] MEDS: SODIUM CHLORIDE 0.9% 1,000 ML IV SCH ×2 (11:39→20:44)
--- NOTE | 2022-02-01 15:03 | P.PN ---
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 He presented here to the emergency room yesterday with a 2 to three-day history of increasing shortness of breath cough and congestion. He increase his oxygen from 3 L to 4 L at home without much improvement. He does continue to smoke. Chest x-ray reveals evidence of a new right lower lobe infiltrate extending to the costophrenic angle suspicious for pneumonia. Diffuse COPD. CT angiogram revealed no evidence of acute pulmonary embolism. There is moderate to advanced emphysematous changes with new areas of consolidation involving the periphery of the right middle lobe and inferior right lower lobe. Ascending aortic aneurysm measuring 4.9 cm. White count 11.4. Hemoglobin 11.5. Lymphocytes 0.6. D-dimer 1.14. Sodium 131. Potassium 4.5. Bicarb 41. BUN 27. Creatinine 1.03. Glucose 121. Troponin negative 1. ProBNP 285. Influenza screen negative. RSV screen negative. COVID-19 screen negative. He is seen today in consultation on the regular medical floor. Currently resting comfortably in bed. Awake and alert in no acute distress. He does have a loose nonproductive cough. No fever or chills. No hemoptysis. The patient is seen today 01/26/2022 in follow-up on the regular medical floor. He is currently sitting up in bed. Awake and alert in no acute distress. Feeling better today compared to yesterday. Still on 8 L high flow nasal cannula. O2 saturations 95-96%. He is afebrile. Hemodynamically stable. Blood cultures reveal no growth. Sputum culture reveals no growth. He is continued on Symbicort, DuoNeb inhalations, IV Solu-Medrol. NicoDerm patch in place. Antibiotics in the form of Zosyn and azithromycin. The patient is seen today 01/27/2022 in follow-up on the regular medical floor. He is currently sitting up at the bedside. Awake and alert in no acute distress. He did have some dyspnea earlier with exertion. He is still requiring 8 L of high flow nasal cannula to maintain O2 saturations in the low 90s. He has normal saline at 60 ML's per hour. Blood cultures reveal no growth. Sputum culture with Santa. He remains on IV Solu-Medrol, DuoNeb inhalations, Symbicort. NicoDerm patch in place. Antibiotics in form of ceftriaxone. The patient is seen today 01/30/2022 in follow-up on the regular medical floor. He sitting up in a chair at the bedside. Awake and alert in no acute distress. He is maintaining O2 saturations in the 90s on 6 L high flow nasal cannula. Sputum culture reveals no bacteria. Blood cultures revealed no growth. He is continued on Symbicort, DuoNeb inhalations, IV Solu-Medrol. Antibiotics in the form of ceftriaxone. NicoDerm patch in place. The patient is seen today 01/31/2022 in follow-up on the regular medical floor. He is currently resting comfortably in bed. Awake and alert in no acute distress. Tolerating a diet. If he is maintaining O2 saturation in the low 90s on 6 L high flow nasal cannula. He's been afebrile. Blood cultures revealed no growth. No new labs today. He is continued on antibiotics in the form of ceftriaxone. NicoDerm patch in place. Continued on Symbicort and DuoNeb inhalations. the patient is seen today 02/01/2022 in follow-up on the regular medical floor. He sitting up in a chair at the bedside. Awake and alert in no acute distress. He is currently on 8 L high flow nasal cannula. He remains quite frail and weak. He is working with physical therapy. Blood cultures reveal no growth. Sputum culture was positive for Santa only. No new labs today. He is continued on antibiotics in the form of ceftriaxone. NicoDerm patch in place. Continued on Symbicort and DuoNeb inhalations. Objective - Vital Signs Vital signs: Vital Signs Temp 97.8 F 02/01/22 14:00 Pulse 116 H 02/01/22 14:00 Resp 18 02/01/22 14:00 BP 128/78 02/01/22 14:00 Pulse Ox 98 02/01/22 14:00 FiO2 Intake & Output 01/31/22 02/01/22 02/01/22 18:59 06:59 18:59 Intake Total 850 850 Output Total 950 420 Balance 850 -950 430 Weight 62.596 kg Intake: Intake, IV Titration 850 850 Amount Sodium Chloride 0.9% 1, 800 800 000 ml @ 100 mls/hr IV . Q10H JOHNIE Rx#:[id number] cefTRIAXone 2 gm In 50 50 Sodium Chloride 0.9% 50 ml @ 100 mls/hr IVPB Q24HR JOHNIE Rx#:[id number] Output: Urine 950 420 Other: Voiding Method Urinal # Voids 275 - Exam GENERAL EXAM: Alert, frail 76-year-old male, sitting up in a chair at the bedside, remains on 8 L nasal cannula, comfortable in no apparent distress. HEAD: Normocephalic. EYES: Normal reaction of pupils, equal size. NOSE: Clear with pink turbinates. THROAT: No erythema or exudates. NECK: No masses, no JVD. CHEST: No chest wall deformity. LUNGS: Equal air entry with few scattered rhonchi, end expiratory wheeze, diminished. CVS: S1 and S2 normal with no audible murmur, regular rhythm. ABDOMEN: No hepatosplenomegaly, normal bowel sounds, no guarding or rigidity. SPINE: No scoliosis or deformity SKIN: No rashes CENTRAL NERVOUS SYSTEM: No focal deficits, tone is normal in all 4 extremities. EXTREMITIES: There is no peripheral edema. No clubbing, no cyanosis. Peripheral pulses are intact. - Labs CBC & Chem 7: 01/27/22 14:35 01/27/22 14:35 Assessment and Plan Assessment: Acute hypoxemic respiratory failure secondary to an acute community-acquired pneumonia here currently on ceftriaxone and azithromycin. 8 L high flow nasal cannula. 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 Number of minutes spent on the visit: 10. This is a joint evaluation that was done along with the nurse practitioner. I was present during the time of evaluation. I performed evaluation along with [employer] and I reviewed the medical records and the treatment plan. I do agree on information mentioned above in the medical progress note. This information was done in more than 10 minutes.
--- NOTE | 2022-02-01 16:32 | P.PN ---
Subjective Progress Note Date: 02/01/22 Principal diagnosis: Pneumonia Patient is a 76-year-old male with a past medical history significant for COPD chronic hepatitis C peripheral vascular disease hyperlipidemia, presenting to the hospital 3 days ago on 01/24/2022 for evaluation of increasing shortness of breath that apparently has been getting worse for last week before presentation to the hospital , patient CT of the chest did shows evidence of right middle lobe pneumonia On today's evaluation that is 02/01/2022, the patient remains to be afebrile, the patient denies any chest pain or shortness of breath however the patient is requiring 8 L nasal cannula to maintain his O2 sats, the patient denies any nausea or vomiting no abdominal pain no diarrhea Objective - Vital Signs Vital signs: Vital Signs Temp 97.8 F 02/01/22 07:44 Pulse 113 H 02/01/22 12:20 Resp 16 02/01/22 07:44 BP 151/77 02/01/22 07:44 Pulse Ox 90 L 02/01/22 08:51 FiO2 Intake & Output 01/31/22 02/01/22 02/01/22 18:59 06:59 18:59 Intake Total 850 850 Output Total 950 420 Balance 850 -950 430 Weight 62.596 kg Intake: Intake, IV Titration 850 850 Amount Sodium Chloride 0.9% 1, 800 800 000 ml @ 100 mls/hr IV . Q10H JOHNIE Rx#:[id number] cefTRIAXone 2 gm In 50 50 Sodium Chloride 0.9% 50 ml @ 100 mls/hr IVPB Q24HR JOHNIE Rx#:[id number] Output: Urine 950 420 Other: Voiding Method Urinal # Voids 275 - Exam GENERAL DESCRIPTION: An elderly male lying in bed in no distress RESPIRATORY SYSTEM: Unlabored breathing , decreased breath sounds at bases HEART: S1 S2 regular rate and rhythm , ABDOMEN: Soft , no tenderness EXTREMITIES: No edema feet - Labs CBC & Chem 7: 01/27/22 14:35 01/27/22 14:35 Assessment and Plan (1) Pneumonia Current Visit: Yes Status: Acute Code(s): J18.9 - PNEUMONIA, UNSPECIFIED ORGANISM SNOMED Code(s): 317428368 Plan: 1patient presented to hospital with increasing shortness of breath and cough about 3 days ago and this patient chest x-ray as well as CT angiogram of the chest did shows right middle lobe pneumonia likely community-acquired , sputum is showing Santa more likely colonizer blood culture has been negative 2patient sputum has been finalized with moderate normal luis along with santa, santa is more likely colonizer 3patient did have slight worsening of his respiratory status and is requiring more supplemental oxygen we will repeat his chest x-ray and limited markers patient has completed his initial Rocephin we will reorder in view of his borderline respiratory status Time with Patient: Less than 30
--- NOTE | 2022-02-02 03:40 | PN ---
PROGRESS NOTE CHIEF COMPLAINT: Pneumonitis and COPD. HISTORY OF PRESENT ILLNESS: This gentleman remains very weak. We are looking for discharge to rehab. REVIEW OF SYSTEMS: He has had no chest pain, abdominal pain, fever, chills, etc. PHYSICAL EXAMINATION: GENERAL: He still remains very asthenic and weak. CHEST: Demonstrates scattered rales. CARDIAC: Normal. ABDOMEN: Scaphoid. IMPRESSION: 1. Bronchopneumonia. 2. Chronic obstructive pulmonary disease. 3. General debility and weakness. PLAN: Prepare for some type of a discharge arrangement for rehab. MMODL / IJN: [id number] /
[2022-02-02] MEDS: traMADol 50 MG TAB PO PRN ×2 (03:59→15:38)
[2022-02-02] MEDS: SODIUM CHLORIDE 0.9% 1,000 ML IV SCH ×2 (03:59→18:51)
[2022-02-02] MEDS: SYMBICORT 160-4.5 MCG INHALER INHALATION SCH ×2 (09:19→19:40)
[2022-02-02] MEDS: IPRATROPIUM-ALBUTEROL 3 ML NEB INHALATION SCH ×4 (09:19→19:39)
[2022-02-02] MEDS: MULTIVITAMINS, THERA 1 EACH TAB PO SCH (09:50)
[2022-02-02] MEDS: predniSONE 10 MG TAB PO SCH (09:50)
[2022-02-02] MEDS: FLUoxetine HCL 20 MG CAP PO SCH (09:50)
[2022-02-02] MEDS: FUROSEMIDE 20 MG TAB PO SCH (09:50)
[2022-02-02] MEDS: OLANZapine 2.5 MG TAB PO SCH ×3 (09:50→22:27)
[2022-02-02] MEDS: LOSARTAN 50 MG TAB PO SCH (09:50)
[2022-02-02] MEDS: NICOTINE 14MG/24HR PATCH TRANSDERM SCH (09:51)
[2022-02-02 12:08] LABS: Basophils # (A) 0.01 X 10*3/uL (0.00-0.10); Basophils % (A) 0.1 %; Eosinophils # (A) 0.07 X 10*3/uL (0.04-0.35); Eosinophils % (A) 0.4 %; HCT 34.4 % (39.6-50.0); Immature Grans, Automated 0.6 %; Lymphocytes # (A) 0.73 X 10*3/uL (0.90-5.00); Lymphocytes % (A) 4.4 %; MCH 30.8 pg (27.0-32.0); MCV 96.4 fL (80.0-97.0); Mean Platelet Volume 9.9 fL (9.5-12.2); Monocytes # (A) 0.97 X 10*3/uL (0.20-1.00); Monocytes % (A) 5.9 %; NRBC Per 100 WBC 0 /100 WBCS (0.0-0.0); Neutrophils # (A) 14.63 X 10*3/uL (1.80-7.70); Neutrophils % (A) 88.6 %; Platelet Count 421 X 10*3/uL (140-440); RBC 3.57 X 10*6/uL (4.40-5.60); RDW 13.6 % (11.5-14.5); WBC 16.51 X 10*3/uL (4.50-10.00)
--- NOTE | 2022-02-02 12:09 | P.PN ---
Subjective Progress Note Date: 02/02/22 Principal diagnosis: Pneumonia Patient is a 76-year-old male with a past medical history significant for COPD chronic hepatitis C peripheral vascular disease hyperlipidemia, presenting to the hospital 3 days ago on 01/24/2022 for evaluation of increasing shortness of breath that apparently has been getting worse for last week before presentation to the hospital , patient CT of the chest did shows evidence of right middle lobe pneumonia On today's evaluation that is 02/02/2022, the patient and continues to be afebrile, the patient denies any chest pain, breathing slightly Comfortably however the patient is requiring 8 L nasal cannula to maintain his O2 sats, the patient denies any nausea or vomiting no abdominal pain no diarrhea, no new symptoms Objective - Vital Signs Vital signs: Vital Signs Temp 97.6 F 02/02/22 08:00 Pulse 116 H 02/02/22 09:34 Resp 16 02/02/22 08:00 BP 146/78 02/02/22 08:00 Pulse Ox 96 02/02/22 09:20 FiO2 Intake & Output 02/01/22 02/02/22 02/02/22 18:59 06:59 18:59 Intake Total 850 Output Total 420 1425 Balance 430 -1425 Weight 62.596 kg Intake: Intake, IV Titration 850 Amount Sodium Chloride 0.9% 1, 800 000 ml @ 100 mls/hr IV . Q10H JOHNIE Rx#:[id number] cefTRIAXone 2 gm In 50 Sodium Chloride 0.9% 50 ml @ 100 mls/hr IVPB Q24HR JOHNIE Rx#:[id number] Output: Urine 420 1425 Other: Voiding Method Urinal # Voids 275 2 - Exam GENERAL DESCRIPTION: An elderly male lying in bed in no distress RESPIRATORY SYSTEM: Unlabored breathing , decreased breath sounds at bases HEART: S1 S2 regular rate and rhythm , ABDOMEN: Soft , no tenderness EXTREMITIES: No edema feet - Labs CBC & Chem 7: 01/27/22 14:35 01/27/22 14:35 Assessment and Plan (1) Pneumonia Current Visit: Yes Status: Acute Code(s): J18.9 - PNEUMONIA, UNSPECIFIED ORGANISM SNOMED Code(s): 702604827 Plan: 1patient presented to hospital with increasing shortness of breath and cough about 3 days ago and this patient chest x-ray as well as CT angiogram of the chest did shows right middle lobe pneumonia likely community-acquired , sputum is showing Santa more likely colonizer blood culture has been negative 2patient sputum has been finalized with moderate normal luis along with santa, santa is more likely colonizer 3patient did have slight worsening of his respiratory status and is requiring more supplemental oxygen , currently waiting for repeat blood work and inflammation Markers to be finalized continue with the Rocephin and watch his clinical course closely Time with Patient: Less than 30
[2022-02-02 12:23] LABS: C Reactive Protein 1.3 mg/dL (0.00-0.80)
[2022-02-02 12:29] LABS: African American GFR (CKD) 114.8 (60.0-200.0); Albumin/Globulin Ratio 1.43 (1.60-3.17); Anion Gap 4.5 mmol/L (10.00-18.00); BUN/Creat Ratio 24.67 Ratio (12.00-20.00); Blood Urea Nitrogen 14.8 mg/dL (9.0-27.0); Calcium 8.6 mg/dL (8.7-10.3); Carbon Dioxide 40.5 mmol/L (20.0-27.5); Globulin 2.1 g/dL (1.6-3.3); Potassium 4.6 mmol/L (3.5-5.5); Total Bilirubin 0.2 mg/dL (0.30-1.20); Total Protein 5.1 g/dL (6.2-8.2)
--- NOTE | 2022-02-02 13:55 | XR ---
EXAMINATION TYPE: XR chest 2V DATE OF EXAM: 02/02/2022 COMPARISON: 01/26/2022 INDICATION: Pneumonia TECHNIQUE: Frontal and lateral views of the chest are obtained. FINDINGS: The heart size is normal. The pulmonary vasculature is normal. The lungs are clear. No suspicious focal consolidation is evident. There is some hyperinflation and flattening of diaphragms compatible with COPD. IMPRESSION: 1. COPD. 2. No acute pulmonary process. Follow-up as clinically indicated
[2022-02-02] MEDS: LORazepam 0.5 MG TAB PO PRN (22:27)
--- NOTE | 2022-02-03 02:41 | PN ---
PROGRESS NOTE CHIEF COMPLAINT: Pneumonitis, COPD, and generalized weakness and debility. HISTORY OF PRESENT ILLNESS: This gentleman is feeling about the same. He thinks he might be getting a little bit stronger. PHYSICAL EXAMINATION: LUNGS: Breath sounds are diminished throughout. He does have good breath sounds on both sides, however. CARDIAC: Normal. ABDOMEN: Flat. IMPRESSION: 1. Pneumonitis. 2. Chronic obstructive pulmonary disease. 3. Frequent falling. 4. General debility and weakness. PLAN: Continue with current program. residential is being sought. MMODL / IJN: [id number] /
[2022-02-03] MEDS: SODIUM CHLORIDE 0.9% 1,000 ML IV SCH (05:40)
[2022-02-03] MEDS ORDERED: FUROSEMIDE 10 MG/ML 4 ML VIAL IV STA (05:54)
[2022-02-03] MEDS: SYMBICORT 160-4.5 MCG INHALER INHALATION SCH ×2 (07:50→19:58)
[2022-02-03] MEDS: IPRATROPIUM-ALBUTEROL 3 ML NEB INHALATION SCH ×4 (07:50→19:58)
[2022-02-03] MEDS: MULTIVITAMINS, THERA 1 EACH TAB PO SCH (09:05)
[2022-02-03] MEDS: LOSARTAN 50 MG TAB PO SCH (09:05)
[2022-02-03] MEDS: OLANZapine 2.5 MG TAB PO SCH ×3 (09:05→21:21)
[2022-02-03] MEDS: predniSONE 10 MG TAB PO SCH (09:05)
[2022-02-03] MEDS: FLUoxetine HCL 20 MG CAP PO SCH (09:05)
[2022-02-03] MEDS: NICOTINE 14MG/24HR PATCH TRANSDERM SCH (09:05)
[2022-02-03] MEDS: FUROSEMIDE 20 MG TAB PO SCH (09:05)
[2022-02-03] MEDS: traMADol 50 MG TAB PO PRN ×2 (09:11→21:21)
--- NOTE | 2022-02-03 11:22 | P.PN ---
Subjective Progress Note Date: 02/03/22 Principal diagnosis: Pneumonia Patient is a 76-year-old male with a past medical history significant for COPD chronic hepatitis C peripheral vascular disease hyperlipidemia, presenting to the hospital 3 days ago on 01/24/2022 for evaluation of increasing shortness of breath that apparently has been getting worse for last week before presentation to the hospital , patient CT of the chest did shows evidence of right middle lobe pneumonia On today's evaluation that is 02/03/2022, the patient remains to be afebrile, the patient denies any chest pain, the patient has breathing slightly Comfortably currently down to 6 L nasal cannula , the patient denies any nausea or vomiting no abdominal pain no diarrhea Objective - Vital Signs Vital signs: Vital Signs Temp 97.6 F 02/03/22 08:00 Pulse 90 02/03/22 08:00 Resp 17 02/03/22 08:00 BP 115/72 02/03/22 08:00 Pulse Ox 91 L 02/03/22 08:00 FiO2 Intake & Output 02/02/22 02/03/22 02/03/22 18:59 06:59 18:59 Output Total 1100 1775 Balance -1100 -1775 Output: Urine 1100 1775 Other: Voiding Method Urinal Urinal # Voids 5 - Exam GENERAL DESCRIPTION: An elderly male lying in bed in no distress RESPIRATORY SYSTEM: Unlabored breathing , decreased breath sounds at bases HEART: S1 S2 regular rate and rhythm , ABDOMEN: Soft , no tenderness EXTREMITIES: No edema feet - Labs CBC & Chem 7: 02/02/22 07:45 02/02/22 07:45 Labs: Abnormal Lab Results - Last 24 Hours (Table) 02/02/22 02/02/22 Range/Units 07:45 07:45 WBC 16.51 H (4.50-10.00) X 10*3/uL RBC 3.57 L (4.40-5.60) X 10*6/uL Hgb 11.0 L (13.0-17.0) g/dL Hct 34.4 L (39.6-50.0) % Immature Gran # 0.10 H (0.00-0.04) X 10*3/uL Neutrophils # 14.63 H (1.80-7.70) X 10*3/uL Lymphocytes # 0.73 L (0.90-5.00) X 10*3/uL Chloride 94 L (96-109) mmol/L Carbon Dioxide 40.5 H* (20.0-27.5) mmol/L Anion Gap 4.50 L (10.00-18.00) mmol/L BUN/Creatinine Ratio 24.67 H (12.00-20.00) Ratio Calcium 8.6 L (8.7-10.3) mg/dL Total Bilirubin 0.20 L (0.30-1.20) mg/dL C-Reactive Protein 1.30 H (0.00-0.80) mg/dL Total Protein 5.1 L (6.2-8.2) g/dL Albumin 3.0 L (3.8-4.9) g/dL Albumin/Globulin Ratio 1.43 L (1.60-3.17) g/dL Assessment and Plan (1) Pneumonia Current Visit: Yes Status: Acute Code(s): J18.9 - PNEUMONIA, UNSPECIFIED ORGANISM SNOMED Code(s): 885505331 Plan: 1patient presented to hospital with increasing shortness of breath and cough about 3 days ago and this patient chest x-ray as well as CT angiogram of the chest did shows right middle lobe pneumonia likely community-acquired , sputum is showing Santa more likely colonizer blood culture has been negative 2patient sputum has been finalized with moderate normal luis along with santa, santa is more likely colonizer 3patient did have slight worsening of his respiratory status and is requiring more supplemental oxygen, however the patient did have a repeat chest x-ray mention COPD with no acute pulmonary process could be related to his underlying COPD exacerbation repeat sputum has been ordered which is currently pending and currently waiting for the repeat pro calcitonin for a continue with the Rocephin Time with Patient: Less than 30
[2022-02-04] MEDS: SODIUM CHLORIDE 0.9% 1,000 ML IV SCH (05:44)
[2022-02-04] MEDS: IPRATROPIUM-ALBUTEROL 3 ML NEB INHALATION SCH ×4 (07:25→19:48)
[2022-02-04] MEDS: SYMBICORT 160-4.5 MCG INHALER INHALATION SCH ×2 (07:25→19:48)
[2022-02-04] MEDS: FLUoxetine HCL 20 MG CAP PO SCH (08:10)
[2022-02-04] MEDS: NICOTINE 14MG/24HR PATCH TRANSDERM SCH (08:10)
[2022-02-04] MEDS: MULTIVITAMINS, THERA 1 EACH TAB PO SCH (08:10)
[2022-02-04] MEDS: predniSONE 10 MG TAB PO SCH (08:10)
[2022-02-04] MEDS: OLANZapine 2.5 MG TAB PO SCH ×3 (08:10→21:17)
[2022-02-04] MEDS: LOSARTAN 50 MG TAB PO SCH (08:10)
[2022-02-04] MEDS: FUROSEMIDE 20 MG TAB PO SCH (08:10)
[2022-02-04] MEDS: traMADol 50 MG TAB PO PRN ×2 (08:32→21:17)
[2022-02-04 13:54] LABS: ALT 37 U/L (4-49); AST 30 U/L (17-59); African American GFR (CKD) >90 (>60 ml/min/1.73 sqM); Albumin 3.1 g/dL (3.5-5.0); Albumin/Globulin Ratio 1.1; Alkaline Phosphatase 56 U/L (38-126); Blood Urea Nitrogen 25 mg/dL (9-20); Calcium 8.2 mg/dL (8.4-10.2); Chloride 85 mmol/L (98-107); Globulin 2.7 g/dL; Glucose 157 mg/dL (74-99); Non-African American GFR(CKD) 86 (>60 ml/min/1.73 sqM); Potassium 4.5 mmol/L (3.5-5.1); Sodium 132 mmol/L (137-145); Total Bilirubin 0.3 mg/dL (0.2-1.3); Total Protein 5.8 g/dL (6.3-8.2)
[2022-02-04 14:00] LABS: Anion Gap 6 mmol/L
[2022-02-04 14:08] LABS: Carbon Dioxide 41 mmol/L (22-30)
--- NOTE | 2022-02-04 15:06 | P.PN ---
Subjective Progress Note Date: 02/04/22 Principal diagnosis: Pneumonia Patient is a 76-year-old male with a past medical history significant for COPD chronic hepatitis C peripheral vascular disease hyperlipidemia, presenting to the hospital 3 days ago on 01/24/2022 for evaluation of increasing shortness of breath that apparently has been getting worse for last week before presentation to the hospital , patient CT of the chest did shows evidence of right middle lobe pneumonia On today's evaluation that is 2021, the patient to be afebrile, the patient denies any chest pain, the patientiseathing slightly Comfor on 6 L nasal cannula , the patient denies any nausea or vomiting no abdominal pain no diarrhea Objective - Vital Signs Vital signs: Vital Signs Temp 98.3 F 02/04/22 08:00 Pulse 89 02/04/22 11:25 Resp 18 02/04/22 08:00 BP 117/72 02/04/22 08:00 Pulse Ox 98 02/04/22 08:00 FiO2 Intake & Output 02/03/22 02/04/22 02/04/22 18:59 06:59 18:59 Output Total 1925 500 Balance -1925 -500 Output: Urine 1925 500 Other: Voiding Method Urinal - Exam GENERAL DESCRIPTION: An elderly male lying in bed in no distress RESPIRATORY SYSTEM: Unlabored breathing , decreased breath sounds at bases HEART: S1 S2 regular rate and rhythm , ABDOMEN: Soft , no tenderness EXTREMITIES: No edema feet - Labs CBC & Chem 7: 02/02/22 07:45 02/04/22 13:19 Labs: Abnormal Lab Results - Last 24 Hours (Table) 02/04/22 Range/Units 13:19 Sodium 132 L (137-145) mmol/L Chloride 85 L (98-107) mmol/L Carbon Dioxide 41 H* (22-30) mmol/L BUN 25 H (9-20) mg/dL Glucose 157 H (74-99) mg/dL Calcium 8.2 L (8.4-10.2) mg/dL Total Protein 5.8 L (6.3-8.2) g/dL Albumin 3.1 L (3.5-5.0) g/dL Assessment and Plan (1) Pneumonia Current Visit: Yes Status: Acute Code(s): J18.9 - PNEUMONIA, UNSPECIFIED ORGANISM SNOMED Code(s): 729977165 Plan: 1patient presented to hospital with increasing shortness of breath and cough about 3 days ago and this patient chest x-ray as well as CT angiogram of the chest did shows right middle lobe pneumonia likely community-acquired , sputum is showing Santa more likely colonizer blood culture has been negative 2patient sputum has been finalized with moderate normal luis along with santa, santa is more likely colonizer 3patient is slowly clinically improving, the patient did have a repeat chest x- ray mention COPD with no acute pulmonary process could be related to his underlying COPD exacerbation, patient did have a normal pro-calcitonin antibiotics can be safely discontinued Time with Patient: Less than 30
--- NOTE | 2022-02-04 16:01 | PN ---
PROGRESS NOTE DATE OF SERVICE: 02/04/2022 CHIEF COMPLAINT: Failure to thrive, pneumonitis, and COPD. HISTORY OF PRESENT ILLNESS: This gentleman continues to struggle. During night, he developed tachycardia, probably from dehydration. His white count is now up to 16,500. PHYSICAL EXAMINATION: GENERAL: He is awake and alert. VITAL SIGNS: Normal. CHEST: Demonstrates no rales or rhonchi. CARDIAC: Normal. ABDOMEN: Flat and soft. IMPRESSION: 1. Chronic obstructive pulmonary disease. 2. Pneumonitis. 3. Dehydration. 4. Leukocytosis. PLAN: Increase IV fluids and continue to monitor labs while looking for discharge location and plan. MMODL / IJN: [id number] /
[2022-02-04 16:51] LABS: Basophils # (A) 0.01 X 10*3/uL (0.00-0.10); Basophils % (A) 0.1 %; Eosinophils # (A) 0 X 10*3/uL (0.04-0.35); Eosinophils % (A) 0 %; HCT 34.4 % (39.6-50.0); HGB 10.8 g/dL (13.0-17.0); Immature Grans, Automated 0.6 %; Lymphocytes # (A) 0.27 X 10*3/uL (0.90-5.00); Lymphocytes % (A) 1.4 %; MCH 30.2 pg (27.0-32.0); MCHC 31.4 g/dL (32.0-37.0); MCV 96.1 fL (80.0-97.0); Mean Platelet Volume 10.7 fL (9.5-12.2); Monocytes # (A) 0.32 X 10*3/uL (0.20-1.00); Monocytes % (A) 1.7 %; NRBC Per 100 WBC 0.1 /100 WBCS (0.0-0.0); Neutrophils # (A) 18.36 X 10*3/uL (1.80-7.70); Neutrophils % (A) 96.2 %; Platelet Count 439 X 10*3/uL (140-440); RBC 3.58 X 10*6/uL (4.40-5.60); RDW 13.5 % (11.5-14.5); WBC 19.07 X 10*3/uL (4.50-10.00)
--- NOTE | 2022-02-05 01:25 | PN ---
PROGRESS NOTE DATE OF SERVICE: 02/03/2022 CHIEF COMPLAINT: Pneumonitis, COPD. HISTORY OF PRESENT ILLNESS: This gentleman continues to be very weak. He is not eating well and he is becoming more dehydrated. PHYSICAL EXAMINATION: LUNGS: Breath sounds are poor. GENERAL: He is weak. CARDIAC: Normal. ABDOMEN: Soft. SKIN: Turgor is poor. IMPRESSION: 1. Chronic obstructive pulmonary disease. 2. Pneumonitis. 3. Dehydration. 4. Poor nutritional status. PLAN: Encourage the patient to increase activity and oral intake. Discharge location is being sought. MMODL / IJN: [id number] /
[2022-02-05] MEDS: SODIUM CHLORIDE 0.9% 1,000 ML IV SCH (06:05)
[2022-02-05] MEDS: MULTIVITAMINS, THERA 1 EACH TAB PO SCH (07:32)
[2022-02-05] MEDS: FLUoxetine HCL 20 MG CAP PO SCH (07:32)
[2022-02-05] MEDS: LOSARTAN 50 MG TAB PO SCH (07:32)
[2022-02-05] MEDS: OLANZapine 2.5 MG TAB PO SCH ×3 (07:32→21:30)
[2022-02-05] MEDS: traMADol 50 MG TAB PO PRN ×2 (07:32→18:15)
[2022-02-05] MEDS: predniSONE 10 MG TAB PO SCH (07:32)
[2022-02-05] MEDS: FUROSEMIDE 20 MG TAB PO SCH (07:32)
[2022-02-05] MEDS: NICOTINE 14MG/24HR PATCH TRANSDERM SCH (07:33)
[2022-02-05] MEDS: SYMBICORT 160-4.5 MCG INHALER INHALATION SCH ×2 (08:56→20:22)
[2022-02-05] MEDS: IPRATROPIUM-ALBUTEROL 3 ML NEB INHALATION SCH ×4 (08:56→20:22)
[2022-02-05] MEDS: NYSTATIN 100,000 UNIT/ML SUSP 500,000 UNIT/5 ML CUP PO SCH ×3 (14:05→21:30)
[2022-02-05] MEDS: ACETAMINOPHEN TAB 325 MG TAB PO PRN (21:34)
--- NOTE | 2022-02-05 22:53 | P.PN ---
Subjective Progress Note Date: 02/05/22 Principal diagnosis: Pneumonia Patient is a 76-year-old male with a past medical history significant for COPD chronic hepatitis C peripheral vascular disease hyperlipidemia, presenting to the hospital 3 days ago on 01/24/2022 for evaluation of increasing shortness of breath that apparently has been getting worse for last week before presentation to the hospital , patient CT of the chest did shows evidence of right middle lobe pneumonia On today's evaluation that is 02/05/2022, the patient denies any fever or chills, the patient denies any chest pain, the patient is breathing comfortably on 6 L nasal cannula oxygen , the patient denies any nausea or vomiting no ab dominal pain no diarrhea, no new symptoms Objective - Vital Signs Vital signs: Vital Signs Temp 98.7 F 02/05/22 07:49 Pulse 116 H 02/05/22 09:18 Resp 17 02/05/22 08:00 BP 124/74 02/05/22 07:49 Pulse Ox 89 L 02/05/22 07:49 FiO2 Intake & Output 02/04/22 02/05/22 02/05/22 18:59 06:59 18:59 Intake Total 50 Output Total 850 Balance -800 Intake: Oral 50 Output: Urine 850 Other: Voiding Method Urinal Urinal # Voids 5 - Exam GENERAL DESCRIPTION: An elderly male lying in bed in no distress RESPIRATORY SYSTEM: Unlabored breathing , decreased breath sounds at bases HEART: S1 S2 regular rate and rhythm , ABDOMEN: Soft , no tenderness EXTREMITIES: No edema feet - Labs CBC & Chem 7: 02/04/22 13:19 02/04/22 13:19 Labs: Abnormal Lab Results - Last 24 Hours (Table) 02/04/22 02/04/22 Range/Units 13:19 13:19 WBC 19.07 H (4.50-10.00) X 10*3/uL RBC 3.58 L (4.40-5.60) X 10*6/uL Hgb 10.8 L (13.0-17.0) g/dL Hct 34.4 L (39.6-50.0) % MCHC 31.4 L (32.0-37.0) g/dL Absolute Nucleated RBC 0.02 H (0.00-0.00) X 10*3/uL Immature Gran # 0.11 H (0.00-0.04) X 10*3/uL Neutrophils # 18.36 H (1.80-7.70) X 10*3/uL Lymphocytes # 0.27 L (0.90-5.00) X 10*3/uL Eosinophils # 0 L (0.04-0.35) X 10*3/uL NRBC/100 WBC Diff 0.1 H (0.0-0.0) /100 WBCS Sodium 132 L (137-145) mmol/L Chloride 85 L (98-107) mmol/L Carbon Dioxide 41 H* (22-30) mmol/L BUN 25 H (9-20) mg/dL Glucose 157 H (74-99) mg/dL Calcium 8.2 L (8.4-10.2) mg/dL Total Protein 5.8 L (6.3-8.2) g/dL Albumin 3.1 L (3.5-5.0) g/dL Assessment and Plan (1) Pneumonia Current Visit: Yes Status: Acute Code(s): J18.9 - PNEUMONIA, UNSPECIFIED ORGANISM SNOMED Code(s): 274232466 Plan: 1patient presented to hospital with increasing shortness of breath and cough about 3 days ago and this patient chest x-ray as well as CT angiogram of the chest did shows right middle lobe pneumonia likely community-acquired , sputum is showing Santa more likely colonizer blood culture has been negative 2patient sputum has been finalized with moderate normal luis along with santa, santa is more likely colonizer 3patient had shown some clinical improvement, the patient did have a repeat chest x-ray mention COPD with no acute pulmonary process could be related to his underlying COPD exacerbation, patient did have a normal pro-calcitonin antibiotics can be safely discontinued 4elevated white count more likely secondary to oropharyngeal candidiasis nystatin swish and swallow has been added Time with Patient: Less than 30
[2022-02-06] MEDS: IPRATROPIUM-ALBUTEROL 3 ML NEB INHALATION PRN ×2 (02:13→19:14)
[2022-02-06] MEDS: SODIUM CHLORIDE 0.9% 1,000 ML IV SCH (07:48)
[2022-02-06] MEDS: NICOTINE 14MG/24HR PATCH TRANSDERM SCH (08:47)
[2022-02-06] MEDS: MULTIVITAMINS, THERA 1 EACH TAB PO SCH (08:49)
[2022-02-06] MEDS: predniSONE 10 MG TAB PO SCH (08:49)
[2022-02-06] MEDS: FLUoxetine HCL 20 MG CAP PO SCH (08:49)
[2022-02-06] MEDS: LOSARTAN 50 MG TAB PO SCH (08:49)
[2022-02-06] MEDS: FUROSEMIDE 20 MG TAB PO SCH ×2 (08:49→15:13)
[2022-02-06] MEDS: NYSTATIN 100,000 UNIT/ML SUSP 500,000 UNIT/5 ML CUP PO SCH ×4 (08:50→22:27)
[2022-02-06] MEDS: OLANZapine 2.5 MG TAB PO SCH ×3 (08:50→22:27)
[2022-02-06] MEDS: traMADol 50 MG TAB PO PRN (08:55)
[2022-02-06] MEDS: IPRATROPIUM-ALBUTEROL 3 ML NEB INHALATION SCH ×4 (08:58→19:18)
[2022-02-06] MEDS: SYMBICORT 160-4.5 MCG INHALER INHALATION SCH ×2 (08:58→19:14)
--- NOTE | 2022-02-06 08:58 | XR ---
EXAMINATION TYPE: XR chest 1V portable DATE OF EXAM: 02/06/2022 HISTORY: Shortness of breath. COMPARISON: 02/02/2022 TECHNIQUE: Single view of the chest is submitted. FINDINGS: Demonstrated are scattered senescent parenchymal change. Reticulonodular infiltrates noted at the lung bases right greater than left. Correlate for pneumonia. The heart is stable. Hilar and mediastinal structures are within normal limits. Degenerative changes are seen of the dorsal spine. IMPRESSION: 1. Reticulonodular infiltrates noted at the lung bases right greater than left. Correlate for pneumo refugio.
--- NOTE | 2022-02-06 13:14 | P.PN ---
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 He presented here to the emergency room yesterday with a 2 to three-day history of increasing shortness of breath cough and congestion. He increase his oxygen from 3 L to 4 L at home without much improvement. He does continue to smoke. Chest x-ray reveals evidence of a new right lower lobe infiltrate extending to the costophrenic angle suspicious for pneumonia. Diffuse COPD. CT angiogram revealed no evidence of acute pulmonary embolism. There is moderate to advanced emphysematous changes with new areas of consolidation involving the periphery of the right middle lobe and inferior right lower lobe. Ascending aortic aneurysm measuring 4.9 cm. White count 11.4. Hemoglobin 11.5. Lymphocytes 0.6. D-dimer 1.14. Sodium 131. Potassium 4.5. Bicarb 41. BUN 27. Creatinine 1.03. Glucose 121. Troponin negative 1. ProBNP 285. Influenza screen negative. RSV screen negative. COVID-19 screen negative. He is seen today in consultation on the regular medical floor. Currently resting comfortably in bed. Awake and alert in no acute distress. He does have a loose nonproductive cough. No fever or chills. No hemoptysis. The patient is seen today 01/26/2022 in follow-up on the regular medical floor. He is currently sitting up in bed. Awake and alert in no acute distress. Feeling better today compared to yesterday. Still on 8 L high flow nasal cannula. O2 saturations 95-96%. He is afebrile. Hemodynamically stable. Blood cultures reveal no growth. Sputum culture reveals no growth. He is continued on Symbicort, DuoNeb inhalations, IV Solu-Medrol. NicoDerm patch in place. Antibiotics in the form of Zosyn and azithromycin. The patient is seen today 01/27/2022 in follow-up on the regular medical floor. He is currently sitting up at the bedside. Awake and alert in no acute distress. He did have some dyspnea earlier with exertion. He is still requiring 8 L of high flow nasal cannula to maintain O2 saturations in the low 90s. He has normal saline at 60 ML's per hour. Blood cultures reveal no growth. Sputum culture with Santa. He remains on IV Solu-Medrol, DuoNeb inhalations, Symbicort. NicoDerm patch in place. Antibiotics in form of ceftriaxone. The patient is seen today 01/30/2022 in follow-up on the regular medical floor. He sitting up in a chair at the bedside. Awake and alert in no acute distress. He is maintaining O2 saturations in the 90s on 6 L high flow nasal cannula. Sputum culture reveals no bacteria. Blood cultures revealed no growth. He is continued on Symbicort, DuoNeb inhalations, IV Solu-Medrol. Antibiotics in the form of ceftriaxone. NicoDerm patch in place. The patient is seen today 01/31/2022 in follow-up on the regular medical floor. He is currently resting comfortably in bed. Awake and alert in no acute distress. Tolerating a diet. If he is maintaining O2 saturation in the low 90s on 6 L high flow nasal cannula. He's been afebrile. Blood cultures revealed no growth. No new labs today. He is continued on antibiotics in the form of ceftriaxone. NicoDerm patch in place. Continued on Symbicort and DuoNeb inhalations. the patient is seen today 02/01/2022 in follow-up on the regular medical floor. He sitting up in a chair at the bedside. Awake and alert in no acute distress. He is currently on 8 L high flow nasal cannula. He remains quite frail and weak. He is working with physical therapy. Blood cultures reveal no growth. Sputum culture was positive for Santa only. No new labs today. He is continued on antibiotics in the form of ceftriaxone. NicoDerm patch in place. Continued on Symbicort and DuoNeb inhalations. The patient is seen today 02/06/2022. The patient was initially expected to be transferred to [facility] late last week however his pulmonary status continues to decline. We are seeing him again today in follow-up. Has been requiring higher oxygen on high flow nasal cannula. He has been as low as 6 L and was treated titrated to 10 and back down to 8 this morning however after working with physical therapy is O2 saturations dropped down into the low 80s and it took a bit for him to recover. He did require increased back up to 15 L in addition to a nonrebreather mask to get his O2 saturations back up to 90. His overall prognosis remains quite poor and guarded. He is a DO NOT RESUSCITATE/DO NOT INTUBATE CODE STATUS. he has been maxed out on DuoNeb inhalations, Symbicort, IV Solu-Medrol that had been transitioned to prednisone 30 mg daily. A NicoDerm patch is in place. He is on antibiotics in the form of ceftriaxone. blood cultures have revealed no growth. Sputum culture with Cand nadia only. Suspect colonized. most recent lab results revealed a white count of 19.0. Hemoglobin 10.8. Platelets 439. Sodium 132. Potassium 4.5. Bicarb 41. BUN 25. Creatinine 0.84. Glucose 157. Pro-calcitonin from 02/02/2022 was normal at 0.07. Objective - Vital Signs Vital signs: Vital Signs Temp 98.9 F 02/06/22 07:29 Pulse 112 H 02/06/22 12:15 Resp 24 02/06/22 09:56 BP 124/78 02/06/22 07:29 Pulse Ox 80 L 02/06/22 11:45 FiO2 Intake & Output 02/05/22 02/06/22 02/06/22 18:59 06:59 18:59 Output Total 800 Balance -800 Output: Urine 800 Other: Voiding Method Urinal Urinal Urinal # Voids 4 # Bowel Movements 1 - Exam GENERAL EXAM: Alert, frail 76-year-old male, resting fairly comfortably in bed, currently back up to 15 L high flow nasal cannula, comfortable in no apparent distress. HEAD: Normocephalic. EYES: Normal reaction of pupils, equal size. NOSE: Clear with pink turbinates. THROAT: No erythema or exudates. NECK: No masses, no JVD. CHEST: No chest wall deformity. LUNGS: Equal air entry with few scattered rhonchi, end expiratory wheeze, diminished. CVS: S1 and S2 normal with no audible murmur, regular rhythm. ABDOMEN: No hepatosplenomegaly, normal bowel sounds, no guarding or rigidity. SPINE: No scoliosis or deformity SKIN: No rashes CENTRAL NERVOUS SYSTEM: No focal deficits, tone is normal in all 4 extremities. EXTREMITIES: There is no peripheral edema. No clubbing, no cyanosis. Periphera l pulses are intact. - Labs CBC & Chem 7: 02/04/22 13:19 02/04/22 13:19 Assessment and Plan Assessment: Acute hypoxemic respiratory failure secondary to an acute community-acquired pneumonia here currently on ceftriaxone. Very slow to improve and currently up to 15 L high flow nasal cannula. 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 Number of minutes spent on the visit: 10.
--- NOTE | 2022-02-06 17:17 | P.PN ---
Subjective Progress Note Date: 02/06/22 Principal diagnosis: Pneumonia Patient is a 76-year-old male with a past medical history significant for COPD chronic hepatitis C peripheral vascular disease hyperlipidemia, presenting to the hospital 3 days ago on 01/24/2022 for evaluation of increasing shortness of breath that apparently has been getting worse for last week before presentation to the hospital , patient CT of the chest did shows evidence of right middle lobe pneumonia On today's evaluation that is 02/06/2022, the patient continues to be febrile, the patient denies any chest pain, the patient did have worsening hypoxemia this morning requiring more supplemental oxygen, the patient denies having any chest pain, denies any worsening cough or sputum production no abdominal pain no diarrhea Objective - Vital Signs Vital signs: Vital Signs Temp 98.9 F 02/06/22 07:29 Pulse 112 H 02/06/22 12:15 Resp 24 02/06/22 09:56 BP 124/78 02/06/22 07:29 Pulse Ox 94 L 02/06/22 08:47 FiO2 Intake & Output 02/05/22 02/06/22 02/06/22 18:59 06:59 18:59 Output Total 800 Balance -800 Output: Urine 800 Other: Voiding Method Urinal Urinal Urinal # Voids 4 # Bowel Movements 1 - Exam GENERAL DESCRIPTION: An elderly male lying in bed in no distress RESPIRATORY SYSTEM: Unlabored breathing , decreased breath sounds at bases HEART: S1 S2 regular rate and rhythm , ABDOMEN: Soft , no tenderness EXTREMITIES: No edema feet - Labs CBC & Chem 7: 02/04/22 13:19 02/04/22 13:19 Assessment and Plan (1) Pneumonia Current Visit: Yes Status: Acute Code(s): J18.9 - PNEUMONIA, UNSPECIFIED ORGANISM SNOMED Code(s): 637357896 Plan: 1patient presented to hospital with increasing shortness of breath and cough about 3 days ago and this patient chest x-ray as well as CT angiogram of the chest did shows right middle lobe pneumonia likely community-acquired , sputum is showing Santa more likely colonizer blood culture has been negative 2patient sputum has been finalized with moderate normal luis along with santa, santa is more likely colonizer 3elevated white count more likely secondary to oropharyngeal to continue with candidiasis nystatin swish and swallow 4-patient with a worsening of his respiratory status and evidence of retrocardiac infiltrate on chest x-ray. We'll switch antibiotic therapy to Zosyn try to obtain a sputum repeat his inflammatory markers and monitor clinical course closely Time with Patient: Less than 30
[2022-02-06] MEDS: methylPREDNISolone SOD SUCCI 125 MG/2 ML VIAL IV SCH (17:36)
[2022-02-06] MEDS: PIPERACILLIN-TAZOBACTAM 3.375 GM in SODIUM CHLORIDE 0.9% 100 ML IVPB SCH (17:36)
--- NOTE | 2022-02-07 00:57 | PN ---
PROGRESS NOTE DATE OF SERVICE: 02/05/2022 CHIEF COMPLAINT: Pneumonitis, COPD, respiratory failure. HISTORY OF PRESENT ILLNESS: This gentleman seems to be slowly deteriorating. He remains quite weak. We are working on a discharge plan. He probably have to go to a [facility]. PHYSICAL EXAMINATION: GENERAL: He seems weaker. CHEST: Demonstrates scattered rales. CARDIAC: Demonstrates tachycardia. ABDOMEN: Scaphoid and soft. IMPRESSION: 1. Pneumonitis. 2. Chronic obstructive pulmonary disease. 3. General debility and weakness. 4. Dehydration. 5. Malnutrition. PLAN: Encourage increasing activity and oral intake while working on discharge plan. MMODL / IJN: [id number] /
--- NOTE | 2022-02-07 01:03 | PN ---
PROGRESS NOTE CHIEF COMPLAINT: COPD. HISTORY OF PRESENT ILLNESS: This gentleman remains very weak. His hydration and nutrition are slightly better. He denies any fever, chills, chest pain, etc. PHYSICAL EXAMINATION: GENERAL: His hydration is definitely improved. CHEST: Fairly clear except for scattered rales. CARDIAC: Normal. IMPRESSION: 1. Exacerbation of chronic obstructive pulmonary disease. 2. Pneumonitis. 3. General weakness and debility. PLAN: Continue inpatient management while working on discharge arrangements. He will probably have to go to rehab. He might also be a candidate for hospice. MMODL / IJN: [id number] /
[2022-02-07] MEDS: PIPERACILLIN-TAZOBACTAM 3.375 GM in SODIUM CHLORIDE 0.9% 100 ML IVPB SCH ×2 (01:11→12:21)
[2022-02-07] MEDS: methylPREDNISolone SOD SUCCI 125 MG/2 ML VIAL IV SCH ×3 (01:11→12:21)
[2022-02-07 02:36] LABS: Glucose,Whole Blood 194 mg/dL (70-110)
[2022-02-07] MEDS: IPRATROPIUM-ALBUTEROL 3 ML NEB INHALATION SCH (08:49)
[2022-02-07] MEDS: SYMBICORT 160-4.5 MCG INHALER INHALATION SCH ×2 (08:49→08:55)
[2022-02-07 09:21] LABS: C Reactive Protein 18.3 mg/dL (0.00-0.80)
[2022-02-07 09:22] LABS: African American GFR (CKD) 68.6 (60.0-200.0); Albumin 3.1 g/dL (3.8-4.9); Albumin/Globulin Ratio 1.24 (1.60-3.17); Anion Gap 9.8 mmol/L (10.00-18.00); BUN/Creat Ratio 24.33 Ratio (12.00-20.00); Blood Urea Nitrogen 29.2 mg/dL (9.0-27.0); Carbon Dioxide 36.2 mmol/L (20.0-27.5); Globulin 2.5 g/dL (1.6-3.3); Non-African American GFR(CKD) 59.2 (60.0-200.0); Potassium 4.9 mmol/L (3.5-5.5); Total Bilirubin 0.2 mg/dL (0.30-1.20); Total Protein 5.6 g/dL (6.2-8.2)
[2022-02-07 09:28] LABS: Basophils # (A) 0 X 10*3/uL (0.00-0.10); Basophils % (A) 0 %; Eosinophils # (A) 0 X 10*3/uL (0.04-0.35); Eosinophils % (A) 0 %; HCT 29.3 % (39.6-50.0); HGB 9.5 g/dL (13.0-17.0); Immature Grans, Automated 0.6 %; Lymphocytes # (A) 0.21 X 10*3/uL (0.90-5.00); Lymphocytes % (A) 1.5 %; MCH 30.5 pg (27.0-32.0); MCHC 32.4 g/dL (32.0-37.0); MCV 94.2 fL (80.0-97.0); Mean Platelet Volume 10.4 fL (9.5-12.2); Monocytes # (A) 0.27 X 10*3/uL (0.20-1.00); Monocytes % (A) 1.9 %; NRBC Per 100 WBC 0 /100 WBCS (0.0-0.0); Neutrophils # (A) 13.35 X 10*3/uL (1.80-7.70); Platelet Count 381 X 10*3/uL (140-440); RBC 3.11 X 10*6/uL (4.40-5.60); RDW 13.9 % (11.5-14.5); WBC 13.91 X 10*3/uL (4.50-10.00)
[2022-02-07] MEDS: FLUoxetine HCL 20 MG CAP PO SCH (12:20)
[2022-02-07] MEDS: SODIUM CHLORIDE 0.9% 1,000 ML IV SCH (12:20)
[2022-02-07] MEDS: MULTIVITAMINS, THERA 1 EACH TAB PO SCH (12:20)
[2022-02-07] MEDS: LOSARTAN 50 MG TAB PO SCH (12:20)
[2022-02-07] MEDS: FUROSEMIDE 20 MG TAB PO SCH (12:20)
[2022-02-07] MEDS: NICOTINE 14MG/24HR PATCH TRANSDERM SCH (12:21)
[2022-02-07] MEDS: OLANZapine 2.5 MG TAB PO SCH (12:21)
[2022-02-07] MEDS: NYSTATIN 100,000 UNIT/ML SUSP 500,000 UNIT/5 ML CUP PO SCH ×2 (12:21→12:22)
--- NOTE | 2022-02-07 14:56 | P.PN ---
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 He presented here to the emergency room yesterday with a 2 to three-day history of increasing shortness of breath cough and congestion. He increase his oxygen from 3 L to 4 L at home without much improvement. He does continue to smoke. Chest x-ray reveals evidence of a new right lower lobe infiltrate extending to the costophrenic angle suspicious for pneumonia. Diffuse COPD. CT angiogram revealed no evidence of acute pulmonary embolism. There is moderate to advanced emphysematous changes with new areas of consolidation involving the periphery of the right middle lobe and inferior right lower lobe. Ascending aortic aneurysm measuring 4.9 cm. White count 11.4. Hemoglobin 11.5. Lymphocytes 0.6. D-dimer 1.14. Sodium 131. Potassium 4.5. Bicarb 41. BUN 27. Creatinine 1.03. Glucose 121. Troponin negative 1. ProBNP 285. Influenza screen negative. RSV screen negative. COVID-19 screen negative. He is seen today in consultation on the regular medical floor. Currently resting comfortably in bed. Awake and alert in no acute distress. He does have a loose nonproductive cough. No fever or chills. No hemoptysis. The patient is seen today 01/26/2022 in follow-up on the regular medical floor. He is currently sitting up in bed. Awake and alert in no acute distress. Feeling better today compared to yesterday. Still on 8 L high flow nasal cannula. O2 saturations 95-96%. He is afebrile. Hemodynamically stable. Blood cultures reveal no growth. Sputum culture reveals no growth. He is continued on Symbicort, DuoNeb inhalations, IV Solu-Medrol. NicoDerm patch in place. Antibiotics in the form of Zosyn and azithromycin. The patient is seen today 01/27/2022 in follow-up on the regular medical floor. He is currently sitting up at the bedside. Awake and alert in no acute distress. He did have some dyspnea earlier with exertion. He is still requiring 8 L of high flow nasal cannula to maintain O2 saturations in the low 90s. He has normal saline at 60 ML's per hour. Blood cultures reveal no growth. Sputum culture with Santa. He remains on IV Solu-Medrol, DuoNeb inhalations, Symbicort. NicoDerm patch in place. Antibiotics in form of ceftriaxone. The patient is seen today 01/30/2022 in follow-up on the regular medical floor. He sitting up in a chair at the bedside. Awake and alert in no acute distress. He is maintaining O2 saturations in the 90s on 6 L high flow nasal cannula. Sputum culture reveals no bacteria. Blood cultures revealed no growth. He is continued on Symbicort, DuoNeb inhalations, IV Solu-Medrol. Antibiotics in the form of ceftriaxone. NicoDerm patch in place. The patient is seen today 01/31/2022 in follow-up on the regular medical floor. He is currently resting comfortably in bed. Awake and alert in no acute distress. Tolerating a diet. If he is maintaining O2 saturation in the low 90s on 6 L high flow nasal cannula. He's been afebrile. Blood cultures revealed no growth. No new labs today. He is continued on antibiotics in the form of ceftriaxone. NicoDerm patch in place. Continued on Symbicort and DuoNeb inhalations. the patient is seen today 02/01/2022 in follow-up on the regular medical floor. He sitting up in a chair at the bedside. Awake and alert in no acute distress. He is currently on 8 L high flow nasal cannula. He remains quite frail and weak. He is working with physical therapy. Blood cultures reveal no growth. Sputum culture was positive for Santa only. No new labs today. He is continued on antibiotics in the form of ceftriaxone. NicoDerm patch in place. Continued on Symbicort and DuoNeb inhalations. The patient is seen today 02/06/2022. The patient was initially expected to be transferred to [facility] late last week however his pulmonary status continues to decline. We are seeing him again today in follow-up. Has been requiring higher oxygen on high flow nasal cannula. He has been as low as 6 L and was treated titrated to 10 and back down to 8 this morning however after working with physical therapy is O2 saturations dropped down into the low 80s and it took a bit for him to recover. He did require increased back up to 15 L in addition to a nonrebreather mask to get his O2 saturations back up to 90. His overall prognosis remains quite poor and guarded. He is a DO NOT RESUSCITATE/DO NOT INTUBATE CODE STATUS. he has been maxed out on DuoNeb inhalations, Symbicort, IV Solu-Medrol that had been transitioned to prednisone 30 mg daily. A NicoDerm patch is in place. He is on antibiotics in the form of ceftriaxone. blood cultures have revealed no growth. Sputum culture with Cand nadia only. Suspect colonized. most recent lab results revealed a white count of 19.0. Hemoglobin 10.8. Platelets 439. Sodium 132. Potassium 4.5. Bicarb 41. BUN 25. Creatinine 0.84. Glucose 157. Pro-calcitonin from 02/02/2022 was normal at 0.07. The patient is seen today 02/07/2022 in follow-up on the regular medical floor. he is awake and alert in no acute distress. The patient has been having issues with oxygen desaturations. He was placed on BiPAP briefly however the patient was refusing to wear it. He is currently on 11 L high flow nasal cannula plus a nonrebreather mask with an O2 saturation of 90%. He is afebrile. Hemodynamically stable. He remains quite frail and cachectic. He is quite weak. Blood cultures had revealed no growth. Initial sputum culture positive for Santa only. Suspect colonized. Follow-up sputum culture pending. white count 13.9. Hemoglobin 9.5. Sodium 137. Potassium 4.9. Bicarb 36. BUN 29. Creatinine 1.2. Pro-calcitonin 0.30. He is continued on Zosyn. Remains on IV Solu-Medrol, Symbicort, DuoNeb inhalations. Objective - Vital Signs Vital signs: Vital Signs Temp 97.7 F 02/07/22 07:35 Pulse 100 02/07/22 09:02 Resp 15 02/07/22 07:35 BP 119/72 02/07/22 07:35 Pulse Ox 92 L 02/07/22 07:35 FiO2 60 02/07/22 08:49 Intake & Output 02/06/22 02/07/22 02/07/22 18:59 06:59 18:59 Intake Total 200 Output Total 600 450 Balance -400 -450 Weight 62.596 kg Intake: Oral 200 Output: Urine 600 450 Other: Voiding Method Urinal Urinal - Exam GENERAL EXAM: Alert, frail 76-year-old male, resting fairly comfortably in bed, dyspneic with minimal exertion, currently back up to 11 L high flow nasal cannula Plus a nonrebreather mask. Had declined BiPAP. HEAD: Normocephalic. EYES: Normal reaction of pupils, equal size. NOSE: Clear with pink turbinates. THROAT: No erythema or exudates. NECK: No masses, no JVD. CHEST: No chest wall deformity. LUNGS: Equal air entry with few scattered rhonchi, end expiratory wheeze, diminished. CVS: S1 and S2 normal with no audible murmur, regular rhythm. ABDOMEN: No hepatosplenomegaly, normal bowel sounds, no guarding or rigidity. SPINE: No scoliosis or deformity SKIN: No rashes CENTRAL NERVOUS SYSTEM: No focal deficits, tone is normal in all 4 extremities. EXTREMITIES: There is no peripheral edema. No clubbing, no cyanosis. Peripheral pulses are intact. - Labs CBC & Chem 7: 02/07/22 04:18 02/07/22 04:18 Labs: Abnormal Lab Results - Last 24 Hours (Table) 02/07/22 02/07/22 02/07/22 Range/Units 02:30 04:18 04:18 WBC 13.91 H (4.50-10.00) X 10*3/uL RBC 3.11 L (4.40-5.60) X 10*6/uL Hgb 9.5 L (13.0-17.0) g/dL Hct 29.3 L (39.6-50.0) % Immature Gran # 0.08 H (0.00-0.04) X 10*3/uL Neutrophils # 13.35 H (1.80-7.70) X 10*3/uL Lymphocytes # 0.21 L (0.90-5.00) X 10*3/uL Eosinophils # 0 L (0.04-0.35) X 10*3/uL Chloride (96-109) mmol/L Carbon Dioxide (20.0-27.5) mmol/L Anion Gap (10.00-18.00) mmol/L BUN (9.0-27.0) mg/dL Est GFR (CKD-EPI)NonAf (60.0-200.0) BUN/Creatinine Ratio (12.00-20.00) Ratio Glucose (70-110) mg/dL POC Glucose (mg/dL) 194 H (70-110) mg/dL Total Bilirubin (0.30-1.20) mg/dL C-Reactive Protein (0.00-0.80) mg/dL Total Protein (6.2-8.2) g/dL Albumin (3.8-4.9) g/dL Albumin/Globulin Ratio (1.60-3.17) g/dL Procalcitonin 0.30 H (0.02-0.09) ng/mL 02/07/22 Range/Units 04:18 WBC (4.50-10.00) X 10*3/uL RBC (4.40-5.60) X 10*6/uL Hgb (13.0-17.0) g/dL Hct (39.6-50.0) % Immature Gran # (0.00-0.04) X 10*3/uL Neutrophils # (1.80-7.70) X 10*3/uL Lymphocytes # (0.90-5.00) X 10*3/uL Eosinophils # (0.04-0.35) X 10*3/uL Chloride 91 L (96-109) mmol/L Carbon Dioxide 36.2 H (20.0-27.5) mmol/L Anion Gap 9.80 L (10.00-18.00) mmol/L BUN 29.2 H (9.0-27.0) mg/dL Est GFR (CKD-EPI)NonAf 59.2 L (60.0-200.0) BUN/Creatinine Ratio 24.33 H (12.00-20.00) Ratio Glucose 161 H (70-110) mg/dL POC Glucose (mg/dL) (70-110) mg/dL Total Bilirubin 0.20 L (0.30-1.20) mg/dL C-Reactive Protein 18.30 H (0.00-0.80) mg/dL Total Protein 5.6 L (6.2-8.2) g/dL Albumin 3.1 L (3.8-4.9) g/dL Albumin/Globulin Ratio 1.24 L (1.60-3.17) g/dL Procalcitonin (0.02-0.09) ng/mL Microbiology - Last 24 Hours (Table) 02/06/22 19:45 Gram Stain - Preliminary Sputum Sputum Culture - Preliminary Assessment and Plan Assessment: Acute hypoxemic respiratory failure secondary to an acute community-acquired pneumonia here currently on ceftriaxone. Very slow to improve and currently up to 11 L high flow nasal cannula , plus a nonrebreather mask. Had refused BiPAP.. Acute exacerbation of severe oxygen dependent chronic obstructive pulmonary disease secondary to above Chronic and ongoing tobacco dependence of greater than 50 years Hypertension Hyperlipidemia, history of hepatitis C History of thoracic aortic aneurysm currently measuring 4.9 cm History of amyloidosis mostly involving the skin on the neck Plan: The patient was seen and evaluated Labs and medications reviewed Very slow to improve Very weak and debilitated Prognosis remains quite poor and guarded Family is at the bedside Recommend hospice care I have personally seen and examined the patient, performed the documentation and the assessment and plan as written. Number of minutes spent on the visit: 10.
[2022-02-07 15:43] VITALS: BP 111/67; PULSE 120; RESP 19; TEMP 98.3
== END 2022-02-07 14:07 | disposition hospice, inpatient (51) | DRG 193 ==
LOC: EC 10:13 → 4SSUR 11:05
PROVIDERS: ADMIT Family Medicine; ATTEND Family Medicine
DX: J18.0 Bronchopneumonia, unspecified organism (principal); J96.21 Acute and chronic respiratory failure with hypoxia; J44.0 Chronic obstructive pulmonary disease with (acute) lower respiratory infection; J44.1 Chronic obstructive pulmonary disease with (acute) exacerbation; E46 Unspecified protein-calorie malnutrition; E87.29 Other acidosis; R64 Cachexia; E85.4 Organ-limited amyloidosis; R29.6 Repeated falls; R62.7 Adult failure to thrive; B18.2 Chronic viral hepatitis C; Z68.20 Body mass index [BMI] 20.0-20.9, adult; D64.9 Anemia, unspecified; E78.5 Hyperlipidemia, unspecified; E86.0 Dehydration; F17.210 Nicotine dependence, cigarettes, uncomplicated; I11.9 Hypertensive heart disease without heart failure; I71.21 Aneurysm of the ascending aorta, without rupture; I73.9 Peripheral vascular disease, unspecified; S00.81XA Abrasion of other part of head, initial encounter; K21.9 Gastro-esophageal reflux disease without esophagitis; Z99.81 Dependence on supplemental oxygen; R91.1 Solitary pulmonary nodule; W19.XXXA Unspecified fall, initial encounter; L99 Other disorders of skin and subcutaneous tissue in diseases classified elsewhere; L40.9 Psoriasis, unspecified; K59.00 Constipation, unspecified; Z20.822 Contact with and (suspected) exposure to COVID-19; Z53.20 Procedure and treatment not carried out because of patient's decision for unspecified reasons; Z66 Do not resuscitate; Z51.5 Encounter for palliative care; Z79.51 Long term (current) use of inhaled steroids; Z79.899 Other long term (current) drug therapy; Z82.49 Family history of ischemic heart disease and other diseases of the circulatory system; Z87.01 Personal history of pneumonia (recurrent); Z96.643 Presence of artificial hip joint, bilateral; Z98.1 Arthrodesis status; Z86.14 Personal history of Methicillin resistant Staphylococcus aureus infection
CPT/HCPCS: 36415; 71045; 71046; 71275; 80053; 82803; 83605; 83880; 84145; 84484; 85025; 85379; 85610; 85730; 86140; 87040; 87070; 87205; 87636; 93005; 94640; 94660; 94760; 96365; 96366; 99285

== ENCOUNTER 2022-02-07 12:57 | Inpatient (IN) | payer MEDICAID ==
[2022-02-07] MEDS ORDERED: LORazepam 2 MG/ML INJ IV PRN (13:20)
[2022-02-07] MEDS ORDERED: ACETAMINOPHEN SUPPOSITORY 650 MG SUPP RECTAL PRN (13:20)
[2022-02-07] MEDS ORDERED: SCOPOLAMINE 1 MG/72 HR PATCH TRANSDERM PRN (13:20)
[2022-02-07] MEDS ORDERED: ONDANSETRON 4 MG/2 ML VIAL IVP PRN (13:20)
[2022-02-07] MEDS ORDERED: ATROPINE OPHTH SOLN 1% 5ML BTL SUBLINGUAL PRN (13:20)
[2022-02-07] MEDS: MORPHINE SULFATE 2 MG/ML SYRINGE IV PRN ×2 (15:02→18:54)
[2022-02-07] MEDS: MORPHINE SULFATE 4 MG/ML SYRINGE IV PRN ×2 (16:53→22:18)
[2022-02-07 20:56] VITALS: BP 115/67; PULSE 118; TEMP 98
[2022-02-07] MEDS ORDERED: DOCUSATE 100 MG CAP PO PRN (22:15)
[2022-02-07] MEDS: MORPHINE SULFATE (100 MG/2 ML) 100 MG in SODIUM CHLORIDE 0.9% 100 ML IV SCH (22:29)
[2022-02-08] MEDS: MORPHINE SULFATE 2 MG/ML SYRINGE IV PRN ×4 (02:03→10:36)
[2022-02-08] MEDS ORDERED: GLYCOPYRROLATE 0.2 MG/ML 2 ML VIAL IVP PRN (10:37)
[2022-02-08] MEDS: MORPHINE SULFATE (100 MG/2 ML) 100 MG in SODIUM CHLORIDE 0.9% 100 ML IV SCH ×2 (11:03→22:37)
--- NOTE | 2022-02-08 22:44 | PN ---
PROGRESS NOTE DATE OF SERVICE: 02/08/2022 CHIEF COMPLAINT: COPD. HISTORY OF PRESENT ILLNESS: This gentleman is doing well. He actually seems better. He seems more alert. He is denying chest pain. He is eating better. He is in agreement to being moved into hospice care. PHYSICAL EXAMINATION: GENERAL: Color and hydration have improved. HEART: He is in sinus rhythm. CHEST: Clear. ABDOMEN: Soft. IMPRESSION: 1. Exacerbation of chronic obstructive pulmonary disease. 2. Pneumonitis. 3. Malnutrition. PLAN: Proceed with comfort care with hospice. MMODL / IJN: [id number] /
[2022-02-09 01:52] VITALS: RESP 1
--- NOTE | 2022-02-09 03:14 | PN ---
PROGRESS NOTE DATE OF SERVICE: 02/07/2022 CHIEF COMPLAINT: COPD. HISTORY OF PRESENT ILLNESS: This gentleman is fairly stable and actually seems to be a little bit stronger and eating better. His hydration is improving. The daughter has requested that he consult with hospice and this is being arranged. PHYSICAL EXAMINATION: GENERAL: He remains awake and alert. CHEST: Demonstrates clear breath sounds. CARDIAC: Normal. IMPRESSION: 1. Chronic obstructive pulmonary disease. 2. Pneumonitis. PLAN: Continue with current program and he will be referred to hospice. MMLUISL / IJN: [id number] /
== END 2022-02-09 07:30 | disposition expired | DRG 951 ==
LOC: 4SSUR 14:18
PROVIDERS: ADMIT Family Medicine; ATTEND Family Medicine
DX: Z51.5 Encounter for palliative care (principal); J18.9 Pneumonia, unspecified organism; E46 Unspecified protein-calorie malnutrition; J44.0 Chronic obstructive pulmonary disease with (acute) lower respiratory infection; J44.1 Chronic obstructive pulmonary disease with (acute) exacerbation; Z68.20 Body mass index [BMI] 20.0-20.9, adult; Z66 Do not resuscitate; Z79.51 Long term (current) use of inhaled steroids; Z79.899 Other long term (current) drug therapy